=== PATIENT | male | born 1945 | race Caucasian/White ===

== ENCOUNTER 2019-05-16 23:25 | Observation (INO) | payer MEDICARE, OTHER ==
[2019-05-17] MEDS ORDERED: ONDANSETRON 4 MG/2 ML VIAL ONE (00:28)
[2019-05-17 00:41] LABS: Absolute Lymphocytes (CBC) 2.1 K/uL (0.7-4.9); Basophils % 0.8 % (0-1.3); Hematocrit 40.5 % (39.6-49.0); Lymphocytes % 26.4 % (15.3-44.8); MPV 10.7 fL (7.6-11.3); RBC Red Blood Cell Count 4.56 M/uL (4.33-5.43)
[2019-05-17 00:42] LABS: Protime INR 1.11
[2019-05-17 00:55] LABS: ALT/SGPT 27 U/L (12-78); AST/SGOT 34 U/L (15-37); Albumin 3.8 g/dL (3.4-5.0); Alkaline Phosphatase 69 U/L (45-117); BUN Blood Urea Nitrogen 26 mg/dL (7-18); Bicarbonate 23 mmol/L (21-32); Bilirubin Direct 0.2 mg/dL (0-0.2); Bilirubin Total 0.6 mg/dL (0.2-1.0); Glucose Level 97 mg/dL (74-106); Lipase 260 U/L (73-393); NT PRO-BNP 269 pg/mL (<125); Potassium 3.8 mmol/L (3.5-5.1); Protein, Total 7.2 g/dL (6.4-8.2); Sodium Level 139 mmol/L (136-145); Troponin (Emerg Dept Use Only) < 0.02 ng/mL (0.0-0.045)
[2019-05-17] MEDS ORDERED: FAMOTIDINE 20 MG/2 ML VIAL IV ONE (01:06)
[2019-05-17] MEDS ORDERED: NA CHLORIDE 0.9% 1,000 ML ONE (01:06)
--- NOTE | 2019-05-17 01:55 | ER ---
Nurse's Notes [facility] Name: Arun Mccall Age: 73 yrs Sex: Male : 1945 Arrival Date: 05/16/2019 Time: 23:31 Bed 23 Private MD: Diagnosis: Chest pain, unspecified;Type 1 diabetes mellitus;Nausea;Essential (primary) hypertension;Abdominal tenderness Presentation: 05/16 23:41 Presenting complaint: Patient states: Reports pt called EMS complaining of blood sugar ea fluctuation. EMS reports pt BS 109 on seen. Transition of care: patient was not received from another setting of care. Onset of symptoms was May 16, 2019. Risk Assessment: Do you want to hurt yourself or someone else? Patient reports no desire to harm self or others. Initial Sepsis Screen: Does the patient meet any 2 criteria? No. Patient's initial sepsis screen is negative. Does the patient have a suspected source of infection? No. Patient's initial sepsis screen is negative. Care prior to arrival: None. 23:41 Method Of Arrival: EMS: [facility] ea 23:41 Acuity: CHAYITO 4 ea Triage Assessment: 23:51 General: Appears in no apparent distress. Behavior is calm, cooperative, appropriate ea for age. Pain: Denies pain. Neuro: Level of Consciousness is awake, alert, obeys commands, Oriented to person, place, time, situation. Cardiovascular: Patient's skin is warm and dry. Respiratory: Airway is patent Respiratory effort is even, unlabored, Respiratory pattern is regular, symmetrical. Derm: Skin is pink, warm \T\ dry. Historical: - Allergies: 23:46 No Known Allergies; ea - PMHx: 23:47 Hypertension; Diabetes - IDDM; ea - PSHx: 23:46 Cataract left eye; Cataract Right eye; Colon removed; ea - Immunization history:: Adult Immunizations up to date. - Social history:: Smoking status: Patient/guardian denies using tobacco. - Ebola Screening: : No symptoms or risks identified at this time. - Family history:: not pertinent. Screenin:45 Abuse screen: Denies threats or abuse. Nutritional screening: No deficits noted. ea Tuberculosis screening: No symptoms or risk factors identified. Fall Risk None identified. Assessment: 23:51 Reassessment: see triage assessment. ea 05/17 00:00 Reassessment: Patient and/or family updated on plan of care and expected duration. Pain ea level reassessed. Patient is alert, oriented x 3, equal unlabored respirations, skin warm/dry/pink. 01:00 Reassessment: Patient and/or family updated on plan of care and expected duration. Pain ea level reassessed. Patient is alert, oriented x 3, equal unlabored respirations, skin warm/dry/pink. 02:00 Reassessment: Patient and/or family updated on plan of care and expected duration. Pain ea level reassessed. Patient is alert, oriented x 3, equal unlabored respirations, skin warm/dry/pink. Vital Signs: 05/16 23:44 BP 152 / 86; Pulse 58; Resp 18; Temp 98.3; Pulse Ox 98% ; Weight 108.86 kg; Height 5 ea ft. 10 in. (177.80 cm); Pain 0/10; 05/17 00:00 BP 158 / 72; Pulse 57; Resp 18; Pulse Ox 95% on R/A; ea 01:00 BP 130 / 68; Pulse 60; Resp 18; Pulse Ox 96% ; ea 03:52 BP 144 / 63; Pulse 58; Resp 18; Pulse Ox 98% on R/A; ea 05/16 23:44 Body Mass Index 34.44 (108.86 kg, 177.80 cm) ea ED Course: 05/16 23:31 Patient arrived in ED. ak1 23:43 Triage completed. ea 23:45 Arm band placed on right wrist. Patient placed in an exam room, on a stretcher, on ea pulse oximetry. 23:47 Patient has correct armband on for positive identification. Bed in low position. Call ea light in reach. Side rails up X2. 23:55 Sumeet Moody MD is Attending Physician. tom 05/17 00:00 Inserted saline lock: 20 gauge in left antecubital area, using aseptic technique. ea 00:28 Shahnaz Allred RN is Primary Nurse. ea 01:16 Abdomen Acute Series XRAY In Process Unspecified. EDMS 01:54 Kem Boswell is Hospitalizing Provider. tom 03:51 No provider procedures requiring assistance completed. Patient admitted, IV remains in ea place. Administered Medications: 00:30 Drug: Zofran 4 mg Route: IVP; Site: left antecubital; ea 01:38 Follow up: Response: No adverse reaction ea 01:37 Drug: Pepcid 20 mg Route: IVP; Site: left antecubital; ea 03:05 Follow up: Response: No adverse reaction ea 01:38 Drug: NS 0.9% 1000 ml Route: IV; Rate: 125 ml/hr; Site: left antecubital; ea 03:53 Follow up: Response: No adverse reaction; IV Status: Infusion continued upon admission ea 03:12 Drug: Aspirin 162 mg Route: PO; ea 03:51 Follow up: Response: No adverse reaction ea Point of Care Testing: Blood Glucose: 02:11 Blood Glucose: 109 mg/dL; ea Ranges: Outcome: 01:55 Decision to Hospitalize by Provider. tom 02:00 Instructed on the need for admit, Demonstrated understanding of instructions. ea 03:51 Admitted to ER Hold. Please see [facility] for further documentation. ea 03:51 Condition: stable 07:45 Patient left the ED. em Signatures: Dispatcher [employer] Sumeet Gregg MD MD cha Munoz, Edgar, ORTHODONTIC TECHNICIAN ASSISTANT ORTHODONTIC TECHNICIAN ASSISTANT em Margarita Serrato RN RN ak1 Shahnaz Allred RN RN ea
--- NOTE | 2019-05-17 01:56 | EDPHYS ---
Physician Documentation [facility] Name: Arun Mccall Age: 73 yrs Sex: Male : 1945 Arrival Date: 05/16/2019 Time: 23:31 Bed 23 Private MD: ED Physician Sumeet Moody HPI: 05/17 00:39 This 73 yrs old Male presents to ER via EMS with complaints of abdominal tom pain, vomiting . 00:39 The patient or guardian reports chest pain that is located primarily in the anterior tom chest wall, left. Onset: just prior to arrival, yesterday. The patient presents with abdominal pain in the epigastric area, in the upper abdomen. Onset: The symptoms/episode began/occurred today, yesterday. The patient presents to the emergency department with nausea, diarrhea, abdominal pain, of the right upper quadrant and left upper quadrant. Historical: - Allergies: 05/16 23:46 No Known Allergies; ea - PMHx: 23:47 Hypertension; Diabetes - IDDM; ea - PSHx: 23:46 Cataract left eye; Cataract Right eye; Colon removed; ea - Immunization history:: Adult Immunizations up to date. - Social history:: Smoking status: Patient/guardian denies using tobacco. - Ebola Screening: : No symptoms or risks identified at this time. - Family history:: not pertinent. ROS: 05/17 00:39 Constitutional: Negative for fever, chills, and weight loss, Eyes: Negative for injury, tom pain, redness, and discharge, ENT: Negative for injury, pain, and discharge, Neck: Negative for injury, pain, and swelling, Respiratory: Negative for shortness of breath, cough, wheezing, and pleuritic chest pain, Back: Negative for injury and pain, : Negative for injury, bleeding, discharge, and swelling, MS/Extremity: Negative for injury and deformity, Skin: Negative for injury, rash, and discoloration, Neuro: Negative for headache, weakness, numbness, tingling, and seizure. Cardiovascular: Positive for chest pain. Abdomen/GI: Positive for abdominal pain, nausea and vomiting, diarrhea. Exam: 00:39 Constitutional: This is a well developed, well nourished patient who is awake, alert, tom and in no acute distress. Head/Face: Normocephalic, atraumatic. Eyes: Pupils equal round and reactive to light, extra-ocular motions intact. Lids and lashes normal. Conjunctiva and sclera are non-icteric and not injected. Cornea within normal limits. Periorbital areas with no swelling, redness, or edema. ENT: Nares patent. No nasal discharge, no septal abnormalities noted. Tympanic membranes are normal and external auditory canals are clear. Oropharynx with no redness, swelling, or masses, exudates, or evidence of obstruction, uvula midline. Mucous membranes moist. Chest/axilla: Normal chest wall appearance and motion. Nontender with no deformity. No lesions are appreciated. Cardiovascular: Regular rate and rhythm with a normal S1 and S2. No gallops, murmurs, or rubs. Normal PMI, no JVD. No pulse deficits. Respiratory: Lungs have equal breath sounds bilaterally, clear to auscultation and percussion. No rales, rhonchi or wheezes noted. No increased work of breathing, no retractions or nasal flaring. Abdomen/GI: Soft, non-tender, with normal bowel sounds. No distension or tympany. No guarding or rebound. No evidence of tenderness throughout. Back: No spinal tenderness. No costovertebral tenderness. Full range of motion. Male : Normal genitalia with no discharge or lesions. Skin: Warm, dry with normal turgor. Normal color with no rashes, no lesions, and no evidence of cellulitis. 00:39 Musculoskeletal/extremity: DVT Exam: No signs of deep vein thrombosis. no pain, no tenderness, negative Homans' sign noted on exam, no appreciated bluish discoloration, no erythema, no increased warmth, swelling, that is moderate. Vital Signs: 05/16 23:44 BP 152 / 86; Pulse 58; Resp 18; Temp 98.3; Pulse Ox 98% ; Weight 108.86 kg; Height 5 ea ft. 10 in. (177.80 cm); Pain 0/10; 05/17 00:00 BP 158 / 72; Pulse 57; Resp 18; Pulse Ox 95% on R/A; ea 01:00 BP 130 / 68; Pulse 60; Resp 18; Pulse Ox 96% ; ea 03:52 BP 144 / 63; Pulse 58; Resp 18; Pulse Ox 98% on R/A; ea 05/16 23:44 Body Mass Index 34.44 (108.86 kg, 177.80 cm) ea MDM: 05/16 23:55 Patient medically screened. [facility] 05/17 00:42 Data reviewed: vital signs, nurses notes, lab test result(s), EKG, radiologic studies, tom plain films. 05/16 23:31 Order name: Glucometer Result Chapisa; Complete Time: 01:14 ak1 05/16 23:56 Order name: Basic Metabolic Panel; Complete Time: 01:14 [facility] 05/16 23:56 Order name: CBC with Diff; Complete Time: 01:14 [facility] 05/16 23:56 Order name: LFT's; Complete Time: 01:14 [facility] 05/16 23:56 Order name: Magnesium; Complete Time: 01:14 [facility] 05/16 23:56 Order name: NT PRO-BNP; Complete Time: 01:14 [facility] 05/16 23:56 Order name: PT-INR; Complete Time: 01:14 [facility] 05/16 23:56 Order name: Troponin (emerg Dept Use Only); Complete Time: 01:14 [facility] 05/17 00:38 Order name: Urine Culture [facility] 05/17 00:48 Order name: Lipase; Complete Time: 01:14 [facility] 05/17 02:49 Order name: Urine Dipstick--Ancillary (enter results) em 05/17 05:44 Order name: Troponin I [facility] 05/17 05:44 Order name: Lipid Profile [facility] 05/16 23:56 Order name: EKG; Complete Time: 23:57 [facility] 05/16 23:56 Order name: Cardiac monitoring; Complete Time: 02:13 [facility] 05/16 23:56 Order name: EKG - Nurse/Tech; Complete Time: 02:13 [facility] 05/16 23:56 Order name: IV Saline Lock; Complete Time: 02:13 [facility] 05/16 23:56 Order name: Labs collected and sent; Complete Time: 02:13 [facility] 05/16 23:56 Order name: O2 Per Protocol; Complete Time: 02:13 [facility] 05/16 23:56 Order name: O2 Sat Monitoring; Complete Time: 02:13 [facility] 05/17 00:38 Order name: Urine Dipstick-Ancillary (obtain specimen); Complete Time: 02:47 [facility] 05/17 00:39 Order name: Abdomen Acute Series XRAY [facility] Administered Medications: 00:30 Drug: Zofran 4 mg Route: IVP; Site: left antecubital; ea 01:38 Follow up: Response: No adverse reaction ea 01:37 Drug: Pepcid 20 mg Route: IVP; Site: left antecubital; ea 03:05 Follow up: Response: No adverse reaction ea 01:38 Drug: NS 0.9% 1000 ml Route: IV; Rate: 125 ml/hr; Site: left antecubital; ea 03:53 Follow up: Response: No adverse reaction; IV Status: Infusion continued upon admission ea 03:12 Drug: Aspirin 162 mg Route: PO; ea 03:51 Follow up: Response: No adverse reaction ea Point of Care Testing: Blood Glucose: 02:11 Blood Glucose: 109 mg/dL; ea Ranges: Critical Glucose Levels:Adult <50 mg/dl or >400 mg/dl <40 mg/dl or >180 mg/dl Disposition: 05/17/19 01:55 Hospitalization ordered by Kem Boswell for Observation. Preliminary diagnosis are Chest pain, unspecified, Type 1 diabetes mellitus, Nausea, Essential (primary) hypertension, Abdominal tenderness. - Bed requested for Telemetry/MedSurg (observation). - Status is Observation. em - Condition is Fair. - Problem is new. - Symptoms have improved. UTI on Admission? No Signatures: Dispatcher [employer] EDSC Sumeet Moody MD MD cha Munoz, Edgar, MAINTENANCE PERSON MAINTENANCE PERSON Bobbi Kat, RN RN Shahnaz Goldberg RN RN ea Corrections: (The following items were deleted from the chart) 00:48 00:39 LIPASE+C.LAB.BRZ ordered. [facility] EDSC 00:52 05/16 23:56 Chest Single View+RAD.RAD.BRZ ordered. [facility]SC 05/17 05:46 01:55 Hospitalization Ordered by Kem Boswell for Observation. Preliminary diagnosis cg is Chest pain, unspecified; Type 1 diabetes mellitus; Nausea; Essential (primary) hypertension; Abdominal tenderness. Bed requested for Telemetry/MedSurg (observation). Status is Observation. Condition is Fair. Problem is new. Symptoms have improved. UTI on Admission? No. tom 07:45 05:46 05/17/2019 01:55 Hospitalization Ordered by Kem Boswell for Observation. em Preliminary diagnosis is Chest pain, unspecified; Type 1 diabetes mellitus; Nausea; Essential (primary) hypertension; Abdominal tenderness. Bed requested for Telemetry/MedSurg (observation). Status is Observation. Condition is Fair. Problem is new. Symptoms have improved. UTI on Admission? No. cg
--- NOTE | 2019-05-17 02:43 | P.HP ---
Certification for Inpatient Patient admitted to: Observation With expected LOS: <2 Midnights Patient will require the following post-hospital care: None Practitioner: I am a practitioner with admitting privileges, knowledge of patient current condition, hospital course, and medical plan of care. Services: Services provided to patient in accordance with Admission requirements found in Title 42 Section 412.3 of the Code of Federal Regulations Patient History Date of Service: 05/17/19 Reason for admission: Chest pain, abdominal pain and diarrhea History of Present Illness: 73-year-old man with a history of diabetes mellitus type 2, history of hypertension, prior heavy smoker presented to the emergency department with a chief complaint of abdominal pain and diarrhea. Patient also report chest pain of onset a few hours ago. Chest pain is located in the anterior chest, rated at 3/10 in severe, nonradiating, no aggravating or relieving factors. He reports an episode of severe chest pain about 4 weeks ago. At that time he felt like he had a heart attack. Patient relates his abdominal symptoms to Tresiba. His Levemir insulin was switched to Tresiba about 4 weeks ago. He stated started experiencing abdominal symptoms comprising of epigastric pain, abdominal pain and diarrhea 2 weeks after starting the Tresiba. In the ED, initial troponin is negative. EKG is unremarkable with no ischemic changes. Abdominal x-ray is unremarkable showing non-specific gas bowel pattern. Lipase is within normal range. Patient is placed under observation for ACS rule out. Allergies fenofibrate nanocrystallized [From Tricor] Allergy (Unverified 05/17/19 06:56) Unknown Home Medications: Metoprolol Tartrate [Lopressor*] 25 mg PO BID 01/07/15 Multivitamin [Multivitamins] 1 each PO DAILY 01/07/15 Aspirin [Lo-Dose Aspirin EC] 81 mg PO DAILY 05/17/19 Insulin Degludec [Tresiba] 14 units SQ BEDTIME 05/17/19 Insulin Degludec [Tresiba] 26 units SQ DAILY 05/17/19 - Past Medical/Surgical History -: Diabetes mellitus type 2 -: Hypertension -: Chronic kidney disease stage 3 - Family History Father -: Heart disease - Social History Smoking Status: Current every day smoker Alcohol use: No CD- Drugs: No Review of Systems Other: General: No fever, no malaise, no unintentional weight loss. Eyes: No eye discharge, Respiratory: No cough, no shortness of breath. CVS: No palpitation, no lightheadedness. GI: No nausea, no vomit, no constipation, has diarrhea. Genitourinary: No dysuria, no urinary frequency, no incontinence, no hematuria. Musculoskeletal: No joint pains, or joint swelling, no gait instability. Neurology: No headache, no asymmetric, weakness, no problem with swallowing. Except as documented, all other systems reviewed and negative. Physical Examination - Physical Exam General: Alert, In no apparent distress, Oriented x3 HEENT: Normocephalic, PERRLA, Mucous membr. moist/pink Neck: Supple, JVD not distended, No Thyromegaly Respiratory: Clear to auscultation bilaterally, Normal air movement Cardiovascular: No edema, Normal pulses, Regular rate/rhythm, No murmurs Capillary refill: <2 Seconds Gastrointestinal: Normal bowel sounds, Soft and benign, Non-distended, No tenderness Musculoskeletal: No swelling Integumentary: No rashes, No erythema Neurological: Normal strength at 5/5 x4 extr, Cranial nerves 3-12 intact - Studies Laboratory Data (last 24 hrs) 05/17/19 00:38: Lipase Cancelled 05/17/19 00:25: PT 13.1 H, INR 1.11 05/17/19 00:25: WBC 7.8, Hgb 14.1, Hct 40.5, Plt Count 155 05/17/19 00:25: Sodium 139, Potassium 3.8, BUN 26 H, Creatinine 1.51 H, Glucose 97, Magnesium 2.0, Total Bilirubin 0.6, AST 34, ALT 27, Alkaline Phosphatase 69 , Lipase 260 Assessment and Plan - Problems (Diagnosis) (1) Chest pain Current Visit: Yes Status: Acute (2) Abdominal pain Current Visit: Yes Status: Acute (3) Hypertension Current Visit: Yes Status: Acute (4) Tobacco use Current Visit: Yes Status: Acute (5) Hyperlipidemia Current Visit: Yes Status: Acute (6) Diabetes mellitus type 2 in obese Current Visit: Yes Status: Acute - Plan Placed under observation Trend troponin Metoprolol 50 mg b.i.d. Check lipid profile. Obtain Echocardiogram Trial of oral Protonix Insulin sliding scale and Lantus insulin for glucose management. Abdominal pain and diarrhea could well be Tresiba side effects. Check stool for C. diff given intermittent diarrhea. - Advance Directives Does patient have a Living Will: No Does patient have a Durable POA for Healthcare: No
[2019-05-17] MEDS ORDERED: ASPIRIN 81 MG CHEWABLE TABLET ONE (03:08)
[2019-05-17 03:19] LABS: Urine Blood TRACE (NEG); Urine Glucose NEGATIVE (NEG); Urine Protein 1+ (NEG); Urine Specific Gravity <1.005 (1.005-1.030); Urine pH 5.5 (5.0-7.0)
[2019-05-17] MEDS ORDERED: NITROGLYCERIN 0.4 MG/TAB SL PRN (04:12)
[2019-05-17 04:13] VITALS: BMI 34.4
[2019-05-17 05:44] LABS: HDL Cholesterol 42 mg/dL (40-60); LDL Cholesterol, Calculated 115 (<130); Troponin I < 0.02 ng/mL (0.0-0.045)
[2019-05-17] MEDS: PANTOPRAZOLE 40MG TABLET PO SCH (06:30)
[2019-05-17] MEDS ORDERED: PANTOPRAZOLE 40MG TABLET PO ONE (06:55)
--- NOTE | 2019-05-17 07:16 | EKG ---
Test Date: 2019-05-17 Test Time: 01:45:12 Bowstring Maker: ANN-MARIE MEASUREMENT RESULTS: Intervals: Rate: 60 GA: 172 QRSD: 126 QT: 468 QTc: 468 Vernalis: P: 7 GA: 172 QRS: 16 T: 28 INTERPRETIVE STATEMENTS: Normal sinus rhythm Right bundle branch block Abnormal ECG Compared to ECG 03/28/2015 00:06:29 Myocardial infarct finding no longer present Electronically Signed On 05-17-19 07:16:04 CDT by Joseph Fuentes
[2019-05-17] MEDS: INSULIN -REGULAR HUMAN 50 UNIT/0.5 ML ML SQ SCH ×4 (07:30→21:00)
[2019-05-17] MEDS: ENOXAPARIN 30 MG/0.3 ML SQ SCH (08:35)
[2019-05-17] MEDS: METOPROLOL TAR 50 MG TAB PO SCH ×2 (08:36→21:29)
[2019-05-17] MEDS ORDERED: INFLUENZA VACCINE (for 3y+) 0.5 ML DOSE IMVAC ONE (09:00)
[2019-05-17] MEDS ORDERED: PNEUMOCOCCAL VACCINE 0.5 ML IMVAC ONE (09:00)
--- NOTE | 2019-05-17 09:01 | RAD REPORT ---
EXAM DESCRIPTION: RAD - Abdomen Acute Series - 05/17/2019 1:30 am CLINICAL HISTORY: Abd pain;Pain COMPARISON: No comparisons FINDINGS: Lung volumes are low. Left hemidiaphragm elevation is present. Left base atelectasis is se en. No peripheral mass or consolidation identified. Significant failure or volume overload are doubtf ul. Heart size and vasculature are normal for shallow inspiration. No pneumothorax. Small left pleura l effusion cannot be excluded. Go air-filled but nondilated stomach noted. Air is seen within multiple nondilated small bowel loops. No colon dilatation. Numerous surgical clips overlie the abdomen. No bowel obstruction, free air or other acute findings. No suspicious calcifications. Bony degenerative changes are present. IMPRESSION: Limited portable chest imaging without acute cardiopulmonary finding. Multiple air filled nondilated small bowel loops could reflect ileus or enteritis. No bowel obstruction, free air or surgically emergent finding suspected.
[2019-05-17] MEDS ORDERED: HYDRALAZINE HCL 20 MG/ML VIAL IV PRN (11:24)
[2019-05-17] MEDS ORDERED: ACETAMINOPHEN 500 MG TAB PO PRN (18:14)
[2019-05-17 20:09] VITALS: O2SAT 97
[2019-05-18 04:29] LABS: Absolute Lymphocytes (CBC) 1.3 K/uL (0.7-4.9); Basophils % 0.6 % (0-1.3); Lymphocytes % 23.2 % (15.3-44.8); MPV 10.7 fL (7.6-11.3)
[2019-05-18] MEDS: PANTOPRAZOLE 40MG TABLET PO SCH (06:41)
[2019-05-18] MEDS: INSULIN -REGULAR HUMAN 50 UNIT/0.5 ML ML SQ SCH ×2 (07:30→11:30)
[2019-05-18] MEDS: ENOXAPARIN 30 MG/0.3 ML SQ SCH (09:00)
[2019-05-18] MEDS: METOPROLOL TAR 50 MG TAB PO SCH (10:39)
[2019-05-18 12:48] VITALS: BP 150/67; TEMP 97.1
--- NOTE | 2019-05-19 03:11 | DS ---
Date of Discharge: 05/18/2019 Discharge Diagnoses: 1.Chest pain, rule out myocardial infarction. 2.Abdominal pain, resolved. 3.Diarrhea, resolved. 4.Hypertension. 5.Overweight. 6.Diabetes mellitus. 7.Tobacco abuse. Consult: None. Procedure: Acute abdomen series, which was normal except for multiple air-filled nondilated small laury wel loops, could reflect ileus or enteritis. History Of Present Illness: Please refer to Dr. Boswell's note. Hospital Course: Initially, the patient presented to the hospital with abdominal pain, diarrhea, as well as chest pain, which was not very severe. Acute abdomen series done was inconclusive. Patient was admitted to the floor, pain resolved, C difficile, but patient did not have any bowel movement since admission, so it was not able to proceed. Patient was able to tolerate diet very well . His chest pain as well has resolved. Cardiac enzymes were all negative. He will be discharged to day in stable condition. We advised patient he will need stress test before proceeding with any exer tion related activity. We will order stress test for tomorrow. Patient has appointment with Dr. Sheehan at the end of the month. Advised him to keep that appointment. In terms of his insulin, patien t thought his diarrhea started when he started on insulin, so I advised him to discuss brown t with the primary care physician. We checked patient's lipid panel and his LDL was at 115 with low HDL at 42. I advised him to discuss that with primary care physician as well. He will be discharged today in stable condition. Continue his home medication. Patient may need to consider medication f or his lipid panel and he will discuss that with his primary care physician. Patient was given order for stress test. He will follow up tomorrow at our facility to schedule that. Discharge Condition: Stable. Discharge Diet: Cardiac/diabetic, 1800 ADA. Discharge Activity: Avoid exertion. Physical Examination: Discharge Vital Signs: Blood pressure is 151/69, respiratory rate 18, pulse 60, temperature 98.9. O 2 saturation 97%. General: Patient is alert and oriented x3, does not look in any distress. HEENT: Atraumatic, normocephalic. PERRLA. Oral mucosa is moist. Neck: Supple. No JVD. No carotid bruits. Chest: Clear to auscultation. Good air entry. Heart: Regular rate and rhythm. S1, S2 normal. No gallop or murmur. Abdomen: Soft, nontender. No masses. No hepatosplenomegaly. Positive bowel sounds. Extremities: No clubbing, no cyanosis, no edema. No calf tenderness. Discharge Medications: Aspirin 81 mg once a day; insulin units at bedtime, increase 6 uni ts daily; metoprolol 25 mg twice a day; multivitamin 1 tablet orally once a day. EUNICE/LOLLY Voice ID: [id number] Report ID: [id number]
== END 2019-05-18 12:45 | disposition home or self-care (01) ==
LOC: ER 23:25 → ERHOLD 05-17 03:09 → 4TH 05-17 07:36
PROVIDERS: ADMIT Internal Medicine; ATTEND Internal Medicine
DX: R07.9 Chest pain, unspecified (principal); R10.9 Unspecified abdominal pain; R19.7 Diarrhea, unspecified; I10 Essential (primary) hypertension; E66.3 Overweight; Z68.34 Body mass index [BMI] 34.0-34.9, adult; E11.9 Type 2 diabetes mellitus without complications; F17.200 Nicotine dependence, unspecified, uncomplicated
CPT/HCPCS: 96361; 93005; 87088; 85025 ×2; 80048 ×2; 36415 ×2; 83735; 85610; 80061; 82962 ×9; 80076; 81003; 84484 ×4; 83690; 83880; 74022; 94760 ×3; 96375; 96374; 99285; J0360; J1650 ×2; J7030; J2405; G0378 ×3; 87086

== ENCOUNTER 2019-06-09 13:36 | Emergency (ER) | payer OTHER ==
[2019-06-09 14:23] LABS: Absolute Lymphocytes (CBC) 1.2 K/uL (0.7-4.9); Basophils % 0.4 % (0-1.3); Hematocrit 38.7 % (39.6-49.0); Lymphocytes % 19.8 % (15.3-44.8); MPV 10.7 fL (7.6-11.3)
[2019-06-09 14:28] LABS: Potassium 3.8 mmol/L (3.5-5.1)
--- NOTE | 2019-06-09 14:58 | ER ---
Nurse's Notes [facility] Name: Arun Mccall Age: 73 yrs Sex: Male : 1945 Arrival Date: 06/09/2019 Time: 13:38 Bed 19 Private MD: Diagnosis: Person with feared health complaint in whom no diagnosis is made Presentation: 06/09 13:38 Presenting complaint: EMS states: PT STATES BGL ABNORMAL AT 166. Transition of care: bp patient was not received from another setting of care. Onset of symptoms is unknown. Risk Assessment: Do you want to hurt yourself or someone else? Patient reports no desire to harm self or others. Initial Sepsis Screen: Does the patient meet any 2 criteria? No. Patient's initial sepsis screen is negative. Does the patient have a suspected source of infection? No. Patient's initial sepsis screen is negative. Care prior to arrival: Glucose check: 166. 13:38 Method Of Arrival: EMS: [facility] bp 13:38 Acuity: CHAYITO 4 bp Triage Assessment: 13:39 General: Appears in no apparent distress. comfortable, Behavior is cooperative, bp appropriate for age, anxious. Pain: Denies pain. EENT: No deficits noted. Neuro: No deficits noted. Cardiovascular: No deficits noted. Respiratory: No deficits noted. GI: No signs and/or symptoms were reported involving the gastrointestinal system. : No signs and/or symptoms were reported regarding the genitourinary system. Derm: No deficits noted. Musculoskeletal: No deficits noted. Historical: - Allergies: 13:39 No Known Allergies; bp - PMHx: 13:39 Diabetes - IDDM; Hypertension; bp - Immunization history:: Adult Immunizations up to date. - Social history:: Smoking status: Patient/guardian denies using tobacco. - Ebola Screening: : No symptoms or risks identified at this time. Screenin:41 Abuse screen: Denies threats or abuse. Denies injuries from another. Nutritional bp screening: No deficits noted. Tuberculosis screening: No symptoms or risk factors identified. Fall Risk None identified. Assessment: 13:41 General: SEE TRIAGE NOTE. bp 15:00 Reassessment: PT EXPRESSING CONCERN OVER DISCHARGE DUE TO "LOW SUGAR" DESPITE BGL bp WITHIN NORMAL RANGE. PT REFUSING EDUCATION OVER GLYCEMIC NORMALS. 15:22 Reassessment: pt requesting a taxi voucher, states he normally drives himself around iw but he has been feeling so bad lately that he can't drive himself, pt states he does not have any family or friends to pick him up, can;t ride the bis because he can't walk across the street, pt is ambulatory with steady gait, pt advised that we are only allowed to give out bus passes, pt requesting to speak to Product Development Specialist. Lorie Saez notified. 15:35 Reassessment: Lorie speaking with pt,. pt ambulatory out of dept with steady gait, with iw Lorie RN. 15:38 Reassessment: PT D/C HOME AMBULATORY WITH STEADY GAIT, AOx4, NO ATAXIA NOTED, FINAL BGL bp 94, PT GIVEN SANDWICH FOR TRIP HOME. Vital Signs: 13:39 BP 156 / 72; Pulse 68; Resp 16; Temp 98; Pulse Ox 99% ; Weight 99.79 kg; bp 13:47 BP 158 / 74; Pulse 64; Resp 16; Pulse Ox 97% ; bp ED Course: 13:38 Patient arrived in ED. bp 13:39 Triage completed. bp 13:39 Arm band placed on. bp 13:41 Patient has correct armband on for positive identification. Bed in low position. Call bp light in reach. Side rails up X2. 13:44 Josi Avilez FNP-C is [facility]. kb 13:44 Gilberto Burden MD is Attending Physician. kb 13:47 Adalberto Welsh, RN is Primary Nurse. bp 13:58 Inserted saline lock: 22 gauge in right forearm, using aseptic technique. Blood bp collected. 15:40 No provider procedures requiring assistance completed. IV discontinued, intact, bp bleeding controlled, No redness/swelling at site. Pressure dressing applied. Administered Medications: No medications were administered Outcome: 14:58 Discharge ordered by . kb 15:35 Patient left the ED. iw 15:40 Discharged to home ambulatory. bp 15:40 Condition: stable 15:40 Discharge instructions given to patient, Instructed on discharge instructions, follow up and referral plans. Demonstrated understanding of instructions, follow-up care. Signatures: Josi Avilez FNP-C FNP-Patrizia Wiley RN RN iw Adalberto Welsh, ASTRID RN bp
--- NOTE | 2019-06-09 14:58 | EDPHYS ---
Physician Documentation [facility] Name: Arun Mccall Age: 73 yrs Sex: Male : 1945 Arrival Date: 06/09/2019 Time: 13:38 Bed 19 Private MD: ED Physician Gilberto Burden HPI: 06/09 13:50 This 73 yrs old Male presents to ER via EMS with complaints of High Blood kb Sugar. 13:50 The patient or guardian reports hyperglycemia, hypoglycemia, that was potentially kb precipitated by changing meds, with the patient's symptoms witnessed by no one. Onset: The symptoms/episode began/occurred today. Associated signs and symptoms: Pertinent positives: None. Current symptoms: In the emergency department the patient's symptoms are unchanged from the initial presentation. The patient has experienced similar episodes in the past. The patient has been recently seen by a physician:. Pt reports he was on levemir for years, then it started getting more expensive so he had to switch to something else. Started one new medication, but it was dropping his sugar so they switched him to a new one, the basaglar pen. States it has been dropping his sugar worse than the previous medication. Reports his sugar dropped today, into the 90s, and it scared him. Reports he drank some juice and ate some peanut butter to get it up and now it is too high (166 per EMS). Denies any other symptoms, states "it just scared me. I don't know what to do with it.". Historical: - Allergies: 13:39 No Known Allergies; bp - PMHx: 13:39 Diabetes - IDDM; Hypertension; bp - Immunization history:: Adult Immunizations up to date. - Social history:: Smoking status: Patient/guardian denies using tobacco. - Ebola Screening: : No symptoms or risks identified at this time. ROS: 13:49 Constitutional: Negative for fever, chills, and weight loss, ENT: Negative for injury, kb pain, and discharge, Neck: Negative for injury, pain, and swelling, Cardiovascular: Negative for chest pain, palpitations, and edema, Respiratory: Negative for shortness of breath, cough, wheezing, and pleuritic chest pain, Abdomen/GI: Negative for abdominal pain, nausea, vomiting, diarrhea, and constipation, Back: Negative for injury and pain, MS/Extremity: Negative for injury and deformity, Skin: Negative for injury, rash, and discoloration, Neuro: Negative for headache, weakness, numbness, tingling, and seizure. Exam: 13:49 Constitutional: This is a well developed, well nourished patient who is awake, alert, kb and in no acute distress. Head/Face: Normocephalic, atraumatic. ENT: Nares patent. No nasal discharge, no septal abnormalities noted. Tympanic membranes are normal and external auditory canals are clear. Oropharynx with no redness, swelling, or masses, exudates, or evidence of obstruction, uvula midline. Mucous membranes moist. Neck: Trachea midline, no thyromegaly or masses palpated, and no cervical lymphadenopathy. Supple, full range of motion without nuchal rigidity, or vertebral point tenderness. No Meningismus. Chest/axilla: Normal chest wall appearance and motion. Nontender with no deformity. No lesions are appreciated. Cardiovascular: Regular rate and rhythm with a normal S1 and S2. No gallops, murmurs, or rubs. Normal PMI, no JVD. No pulse deficits. Respiratory: Lungs have equal breath sounds bilaterally, clear to auscultation and percussion. No rales, rhonchi or wheezes noted. No increased work of breathing, no retractions or nasal flaring. Abdomen/GI: Soft, non-tender, with normal bowel sounds. No distension or tympany. No guarding or rebound. No evidence of tenderness throughout. Skin: Warm, dry with normal turgor. Normal color with no rashes, no lesions, and no evidence of cellulitis. MS/ Extremity: Pulses equal, no cyanosis. Neurovascular intact. Full, normal range of motion. Neuro: Awake and alert, GCS 15, oriented to person, place, time, and situation. Cranial nerves II-XII grossly intact. Motor strength 5/5 in all extremities. Sensory grossly intact. Cerebellar exam normal. Normal gait. 13:49 Psych: Behavior/mood is cooperative, anxious, Affect is animated, Oriented to person, place, time, Patient has no thoughts/intents to harm self or others. Judgement / Insight is normal. Memory is normal. Delusions/hallucinations are not present. Vital Signs: 13:39 BP 156 / 72; Pulse 68; Resp 16; Temp 98; Pulse Ox 99% ; Weight 99.79 kg; bp 13:47 BP 158 / 74; Pulse 64; Resp 16; Pulse Ox 97% ; bp MDM: 13:44 Patient medically screened. kb 13:50 Data reviewed: vital signs, nurses notes. Data interpreted: Pulse oximetry: on room air kb is 97 %. Interpretation: normal. 14:31 Counseling: I had a detailed discussion with the patient and/or guardian regarding: the historical points, exam findings, and any diagnostic results supporting the discharge/admit diagnosis, lab results, the need for outpatient follow up, a family practitioner, to return to the emergency department if symptoms worsen or persist or if there are any questions or concerns that arise at home. 16:48 Data reviewed: I have discussed the patient's presentation/case with the attending Emergency Department Physician;. 06/09 13:44 Order name: CBC with Diff; Complete Time: 14:30 kb 06/09 13:44 Order name: Basic Metabolic Panel; Complete Time: 14:30 kb 06/09 13:44 Order name: IV Start; Complete Time: 13:58 kb 06/09 15:27 Order name: Glucose, Ancillary Testing; Complete Time: 15:28 EDMS 06/09 15:29 Order name: Diet Ada 1800 Omar; Complete Time: 15:30 kb Administered Medications: No medications were administered Disposition: 15:58 Co-signature as Attending Physician, Gilberto Burden MD. rn Disposition: 06/09/19 14:58 Discharged to Home. Impression: Person with feared health complaint in whom no diagnosis is made. - Condition is Stable. - Discharge Instructions: Hyperglycemia, [id number], Hypoglycemia, [id number]. - Medication Reconciliation Form, Thank You Letter, Antibiotic Education, Prescription Opioid Use form. - Follow up: Emergency Department; When: As needed; Reason: Worsening of condition. Follow up: Private Physician; When: 2 - 3 days; Reason: Recheck today's complaints, Continuance of care, Re-evaluation by your physician. Signatures: Dispatcher [employer] EDJosi Lantigua, MANAGER BRANCH-C MANAGER BRANCH-Patrizia Wiley, RN Gilberto Mora MD MD rn Peltier, Brian, RN RN bp Corrections: (The following items were deleted from the chart) 15:35 14:58 06/09/2019 14:58 Discharged to Home. Impression: Person with feared health iw complaint in whom no diagnosis is made. Condition is Stable. Forms are Medication Reconciliation Form, Thank You Letter, Antibiotic Education, Prescription Opioid Use. Follow up: Emergency Department; When: As needed; Reason: Worsening of condition. Follow up: Private Physician; When: 2 - 3 days; Reason: Recheck today's complaints, Continuance of care, Re-evaluation by your physician. kb
[2019-06-09 16:04] VITALS: BP 158/74; O2SAT 97
[2019-06-09 16:05] VITALS: TEMP 98
== END 2019-06-09 15:35 | disposition home or self-care (01) ==
LOC: ER 13:36
DX: R73.9 Hyperglycemia, unspecified (principal); Z71.1 Person with feared health complaint in whom no diagnosis is made
CPT/HCPCS: 36415; 80048; 82947; 85025; 99283

== ENCOUNTER 2019-06-19 07:59 | Emergency (ER) | payer OTHER ==
[2019-06-19] MEDS ORDERED: NA CHLORIDE 0.9% 500 ML ONE (08:37)
--- NOTE | 2019-06-19 09:12 | RAD REPORT ---
EXAM DESCRIPTION: CT - Head Brain Wo Cont - 06/19/2019 9:01 am CLINICAL HISTORY: Fall, head injury COMPARISON: CT head February 2015 TECHNIQUE: Axial 5 mm thick images of the head were obtained without IV contrast. All CT scans are performed using dose optimization technique as appropriate and may include automated exposure control or mA/KV adjustment according to patient size. FINDINGS: No intracranial hemorrhage, mass, edema or shift of mid-line structures. No acute infarcti on changes seen. Prominent atrophy changes are present. Ventricles are in proportion to the volume lo ss. Scattered chronic ischemic changes are evident in the cerebral white matter and questionably in t he vish. Chronic ischemic changes similar to comparison. Atrophy is progressive. . Mastoid air cells and visualized portions of the paranasal sinuses are clear. No acute bony findings. IMPRESSION: Negative non-contrast CT head examination for acute finding. Atrophy and chronic ischemic changes are present with the atrophy progressive from the 2014 compariso n.
[2019-06-19 09:13] LABS: Albumin 3.2 g/dL (3.4-5.0); Bilirubin Direct 0.2 mg/dL (0-0.2); Bilirubin Total 0.6 mg/dL (0.2-1.0); Potassium 3.7 mmol/L (3.5-5.1); Protein, Total 6.5 g/dL (6.4-8.2)
[2019-06-19 09:17] LABS: Absolute Lymphocytes (CBC) 1.1 K/uL (0.7-4.9); Basophils % 0.5 % (0-1.3); Hematocrit 40.7 % (39.6-49.0); Lymphocytes % 21.5 % (15.3-44.8); MPV 10.2 fL (7.6-11.3); RBC Red Blood Cell Count 4.54 M/uL (4.33-5.43)
--- NOTE | 2019-06-19 10:26 | RAD REPORT ---
EXAM DESCRIPTION: RAD - Abdomen 1 View (KUB) - 06/19/2019 9:00 am CLINICAL HISTORY: constipation, abd pain History of fall COMPARISON: No comparisons FINDINGS: Bowel gas pattern is non-specific. No obstruction, free air or pneumatosis. No suspicious calcifications. Numerous surgical clips overlie the abdomen probably from prior hernia repair Prominent bony degenerative change in the mid and lower lumbar spine. No pelvic fracture. Proximal fe li show no acute findings. IMPRESSION: Single-view abdomen examination shows no acute or suspicious finding.
--- NOTE | 2019-06-19 10:48 | EDPHYS ---
Physician Documentation [facility] Name: rAun Mccall Age: 73 yrs Sex: Male : 1945 Arrival Date: 06/19/2019 Time: 08:04 Bed 18 Private MD: ED Physician Gilberto Burden HPI: 06/19 08:15 This 73 yrs old Male presents to ER via Unassigned with complaints of rn Abdominal Pain, Fall Injury. 08:15 Details of fall: The patient fell from an upright position, while standing. Onset: The rn symptoms/episode began/occurred just prior to arrival. Associated injuries: The patient sustained injury to the head. Severity of symptoms: At their worst the symptoms were mild, in the emergency department the symptoms are unchanged. The patient has experienced similar episodes in the past. Reports leaned over to tow picker something off floor, fell forward and hit head, no LOC, denies injury other than head, states hit top of head. Also reports has been constipated, difficulty going to bathroom, did have a small bowel movement this AM but was hard. Reports has not been taking his insulin because glucose going too low, and feels dehydrated. . Historical: - Allergies: 08:05 No Known Allergies; aa5 - PMHx: 08:05 Diabetes - IDDM; Hypertension; aa5 - PSHx: 08:05 Colon sx; aa5 - Immunization history:: Flu vaccine is not up to date. - Social history:: Smoking status: Patient uses tobacco products, denies chronic smoking, but will smoke occasionally. - Ebola Screening: : No symptoms or risks identified at this time. - Family history:: not pertinent. - Hospitalizations: : No recent hospitalization is reported. ROS: 08:15 Constitutional: Negative for fever, chills, and weight loss, Eyes: Negative for injury, rn pain, redness, and discharge, ENT: Negative for injury, pain, and discharge, Neck: Negative for injury, pain, and swelling, Cardiovascular: Negative for chest pain, palpitations, and edema, Respiratory: Negative for shortness of breath, cough, wheezing, and pleuritic chest pain, Abdomen/GI: Negative for nausea, vomiting, diarrhea Back: Negative for injury and pain, : Negative for injury, bleeding, discharge, and swelling, MS/Extremity: Negative for injury and deformity, Skin: Negative for injury, rash, and discoloration, Neuro: Negative for numbness, tingling, and seizure. Exam: 08:15 Constitutional: This is a well developed, well nourished patient who is awake, alert, rn and in no acute distress. Head/Face: Normocephalic, atraumatic. ENT: dry MM Neck: Trachea midline, no thyromegaly or masses palpated, and no cervical lymphadenopathy. Supple, full range of motion without nuchal rigidity, or vertebral point tenderness. No Meningismus. Cardiovascular: Regular rate and rhythm. No pulse deficits. Respiratory: No increased work of breathing, no retractions or nasal flaring. Abdomen/GI: soft, non-tender, no rebound or masses MS/ Extremity: Pulses equal, no cyanosis. Neurovascular intact. Full, normal range of motion. Equal circumference. Neuro: Awake and alert, GCS 15, oriented to person, place, time, and situation. Cranial nerves II-XII grossly intact. Motor strength 4/5 in all extremities. Sensory grossly intact. Cerebellar exam normal. Vital Signs: 08:05 BP 155 / 87; Pulse 60; Resp 16 S; Temp 99.1(O); Pulse Ox 98% on R/A; aa5 09:15 BP 184 / 84; Pulse 56; Resp 17; Temp 98.2(O); Pulse Ox 100% on R/A; mh5 10:27 BP 196 / 90; Pulse 66; Resp 17; Temp 98.6(O); Pulse Ox 97% on R/A; aa5 11:10 BP 170 / 80; Pulse 64; Resp 16 S; Temp 98.6(O); Pulse Ox 98% on R/A; Pain 0/10; aa5 10:27 MD notified of increased BP. No further orders received. aa5 MDM: 08:08 Patient medically screened. rn 10:46 Differential diagnosis: closed head injury, contusion. Data reviewed: vital signs, rn nurses notes, lab test result(s), radiologic studies, CT scan, plain films, and as a result, I will discharge patient. Counseling: I had a detailed discussion with the patient and/or guardian regarding: the historical points, exam findings, and any diagnostic results supporting the discharge/admit diagnosis, lab results, radiology results, the need for outpatient follow up, to return to the emergency department if symptoms worsen or persist or if there are any questions or concerns that arise at home. Special discussion: Based on the patient's history, exam and DX evaluation, there is no indication for emergent intervention or inpatient TX. It is understood by the patient/guardian that if the SXs persist or worsen they need to return immediately for re-evaluation. I discussed with the patient/guardian in detail that at this point there is no indication for admission to the hospital. It is understood, however, that if the symptoms persist or worsen the patient needs to return immediately for re-evaluation. 06/19 08:10 Order name: CBC with Diff; Complete Time: 09:38 rn 06/19 08:10 Order name: Basic Metabolic Panel; Complete Time: 09:38 rn 06/19 08:10 Order name: Hepatic Function; Complete Time: 09:38 rn 06/19 08:10 Order name: Lipase; Complete Time: 09:38 06/19 08:15 Order name: Urine Microscopic Only 06/19 09:56 Order name: Urine Dipstick--Ancillary (enter results) 06/19 08:10 Order name: IV Start; Complete Time: 09:30 rn 06/19 08:10 Order name: CT Head Brain wo Cont; Complete Time: 09:38 rn 06/19 08:10 Order name: Labs collected and sent; Complete Time: 09:30 rn 06/19 08:10 Order name: XRAY KUB; Complete Time: 10:28 rn 06/19 08:15 Order name: Urine Dipstick-Ancillary (obtain specimen); Complete Time: 09:57 rn Administered Medications: 09:10 Drug: NS 0.9% 500 ml Route: IV; Rate: bolus; Site: right forearm; aa5 Disposition: 06/19/19 10:47 Discharged to Home. Impression: Superficial injury of head, Constipation, unspecified, Dehydration. - Condition is Stable. - Discharge Instructions: Dehydration, Adult, Head Injury, Adult, Constipation, Adult, [id number]. - Medication Reconciliation Form, Thank You Letter, Antibiotic Education, Prescription Opioid Use form. - Follow up: Private Physician; When: As needed; Reason: Recheck today's complaints, Re-evaluation by your physician. - Problem is new. - Symptoms have improved. Signatures: Dispatcher [employer] EDGilberto Mclean MD MD rn Curtis, Nirali, RN RN aa5 Corrections: (The following items were deleted from the chart) 09:30 08:10 Accucheck ordered. sukhjinder aa5 11:26 10:47 06/19/2019 10:47 Discharged to Home. Impression: Superficial injury of head; aa5 Constipation, unspecified; Dehydration. Condition is Stable. Forms are Medication Reconciliation Form, Thank You Letter, Antibiotic Education, Prescription Opioid Use. Follow up: Private Physician; When: As needed; Reason: Recheck today's complaints, Re-evaluation by your physician. Problem is new. Symptoms have improved. rn
--- NOTE | 2019-06-19 10:48 | ER ---
Nurse's Notes [facility] Name: Arun Mccall Age: 73 yrs Sex: Male : 1945 Arrival Date: 06/19/2019 Time: 08:04 Bed 18 Private MD: Diagnosis: Superficial injury of head;Constipation, unspecified;Dehydration Presentation: 06/19 08:04 Risk Assessment: Do you want to hurt yourself or someone else? Patient reports no aa5 desire to harm self or others. Initial Sepsis Screen: Does the patient meet any 2 criteria? No. Patient's initial sepsis screen is negative. Does the patient have a suspected source of infection? No. Patient's initial sepsis screen is negative. Care prior to arrival: Glucose check: 230. 08:04 Acuity: CHAYITO 3 aa5 08:04 Presenting complaint: EMS states: "pt called 911 for fall after trying to get something aa5 up off the floor at 0200 and hitting his head on carpet". Negative LOC. Pt also states "my head has been feeling mushy for a long time now" (previous to fall). Pt c/o last normal BM was 1 week ago and RLQ pain. Pt reports small BM this morning. Transition of care: patient was not received from another setting of care. Onset of symptoms was 2018. 08:04 Method Of Arrival: EMS: [facility] aa5 Historical: - Allergies: 08:05 No Known Allergies; aa5 - PMHx: 08:05 Diabetes - IDDM; Hypertension; aa5 - PSHx: 08:05 Colon sx; aa5 - Immunization history:: Flu vaccine is not up to date. - Social history:: Smoking status: Patient uses tobacco products, denies chronic smoking, but will smoke occasionally. - Ebola Screening: : No symptoms or risks identified at this time. - Family history:: not pertinent. - Hospitalizations: : No recent hospitalization is reported. Screenin:30 Fall Risk Fall in past 12 months (25 points). IV access (20 points). Total Alfred Fall aa5 Scale indicates High Risk Score (45 or more points). Fall prevention measures have been instituted. Side Rails Up X 2 Placed Close to Nursing Station. 08:35 Abuse screen: Denies threats or abuse. Nutritional screening: No deficits noted. aa5 Tuberculosis screening: No symptoms or risk factors identified. Assessment: 08:05 General: Appears comfortable, Behavior is calm, cooperative. Pain: Complains of pain in aa5 right lower quadrant Pain does not radiate. Pain currently is 0 out of 10 on a pain scale. Is intermittent. Neuro: Level of Consciousness is awake, alert, obeys commands, Oriented to person, place, time, situation, Money Market Dealer are equal bilaterally Moves all extremities. Speech is normal, Facial symmetry appears normal, Pupils are PERRLA, Denies weakness headache. Cardiovascular: Heart tones S1 S2 present Rhythm is regular. Respiratory: Airway is patent Respiratory effort is even, unlabored, Respiratory pattern is regular, symmetrical. GI: Abdomen is round non-distended, Bowel sounds present X 4 quads. Abd is soft and non tender X 4 quads. Reports constipation, Patient currently denies nausea, vomiting. : No signs and/or symptoms were reported regarding the genitourinary system. EENT: No signs and/or symptoms were reported regarding the EENT system. Derm: Skin is pink, warm \\T\\ dry. Musculoskeletal: Range of motion: intact in all extremities. 08:31 Reassessment: Patient is alert, oriented x 3, equal unlabored respirations, skin aa5 warm/dry/pink. Pt taken to radiology . 09:05 Reassessment: Patient is alert, oriented x 3, equal unlabored respirations, skin aa5 warm/dry/pink. Patient denies pain at this time. Back from radiology . 09:55 Reassessment: Pt resting in bed with eyes closed, respirations even and unlabored, skin aa5 is pink/warm/dry. . 10:58 Reassessment: Patient is alert, oriented x 3, equal unlabored respirations, skin aa5 warm/dry/pink. To bedside to d/c pt home, pt states he does not have a ride home. Will call taxi for patient, pt agrees. Pt sitting up in bed eating a sandwich, pt tolerating well. . 11:20 Reassessment: Patient is alert, oriented x 3, equal unlabored respirations, skin aa5 warm/dry/pink. Patient denies pain at this time. Vital Signs: 08:05 BP 155 / 87; Pulse 60; Resp 16 S; Temp 99.1(O); Pulse Ox 98% on R/A; aa5 09:15 BP 184 / 84; Pulse 56; Resp 17; Temp 98.2(O); Pulse Ox 100% on R/A; mh5 10:27 BP 196 / 90; Pulse 66; Resp 17; Temp 98.6(O); Pulse Ox 97% on R/A; aa5 11:10 BP 170 / 80; Pulse 64; Resp 16 S; Temp 98.6(O); Pulse Ox 98% on R/A; Pain 0/10; aa5 10:27 MD notified of increased BP. No further orders received. aa5 ED Course: 08:04 Patient arrived in ED. aa5 08:04 Arm band placed on Patient placed in an exam room, on a stretcher. aa5 08:08 Gilberto Burden MD is Attending Physician. rn 08:08 Nirali Curtis, RN is Primary Nurse. aa5 08:30 Initial lab(s) drawn, by id, sent to lab. Inserted saline lock: 20 gauge in right aa5 forearm, using aseptic technique. Blood collected. 08:34 Triage completed. aa5 08:52 XRAY KUB In Process Unspecified. EDMS 09:00 CT Head Brain wo Cont In Process Unspecified. EDMS 09:17 Patient has correct armband on for positive identification. Placed in gown. Bed in low mh5 position. Call light in reach. Side rails up X2. Warm blanket given. Pulse ox on. NIBP on. 09:56 Urine Microscopic Only Sent. 5 09:57 Urine collected: clean catch specimen, clear. 5 11:20 No provider procedures requiring assistance completed. IV discontinued, intact, aa5 bleeding controlled, No redness/swelling at site. Pressure dressing applied. Administered Medications: 09:10 Drug: NS 0.9% 500 ml Route: IV; Rate: bolus; Site: right forearm; aa5 Outcome: 10:47 Discharge ordered by . rn 11:20 Discharged to home via wheelchair, via taxi aa5 11:20 Condition: good 11:20 Discharge instructions given to patient, Instructed on discharge instructions, follow up and referral plans. Demonstrated understanding of instructions, follow-up care. 11:26 Patient left the ED. aa5 Signatures: Dispatcher [employer] EDNH Gilberto Burden MD MD rn Nirali CurtisASTRID RN5 Meaghan Meyers [facility] Corrections: (The following items were deleted from the chart) : 11:30 No provider procedures requiring assistance completed. ruby5 ruby5 : 11:30 IV discontinued, intact, bleeding controlled, No redness/swelling at site. aa5 Pressure dressing applied, aa5 15: 10:27 BP 196 / 90; Pulse 66bpm; Resp 17bpm; Pulse Ox 97% RA; Temp 98.6F Oral; mh5 5
[2019-06-19 10:59] LABS: Urine Bacteria <20 /HPF (NONE SEEN); Urine Culture Reflex Order NOT NEEDED; Urine RBC NONE SEEN /HPF (NONE SEEN)
[2019-06-19 11:39] VITALS: BP 196/90; TEMP 98.6; O2SAT 97
[2019-06-19 12:45] LABS: Urine Blood TRACE (NEG); Urine Glucose NEGATIVE (NEG); Urine Protein 3+ (NEG)
== END 2019-06-19 11:26 | disposition home or self-care (01) ==
LOC: ER 07:59
DX: E86.0 Dehydration (principal); K59.00 Constipation, unspecified; I10 Essential (primary) hypertension; E11.9 Type 2 diabetes mellitus without complications; W19.XXXA Unspecified fall, initial encounter; Y93.89 Activity, other specified; Y92.9 Unspecified place or not applicable; Z72.0 Tobacco use
CPT/HCPCS: 85025; 80048; 36415; 80076; 83690; 70450; 74018; 99284; J7040; 81003; 81015

== ENCOUNTER 2019-06-22 09:16 | Emergency (ER) | payer OTHER ==
[2019-06-22 10:23] LABS: Urine Blood TRACE (NEG); Urine Glucose NEGATIVE (NEG); Urine Protein 3+ (NEG); Urine Specific Gravity 1.015 (1.005-1.030)
[2019-06-22 10:38] LABS: Absolute Lymphocytes (CBC) 1.3 K/uL (0.7-4.9); Basophils % 0.5 % (0-1.3); Hematocrit 43.4 % (39.6-49.0); Lymphocytes % 19.4 % (15.3-44.8); MPV 10.6 fL (7.6-11.3); RBC Red Blood Cell Count 4.88 M/uL (4.33-5.43)
[2019-06-22 10:39] LABS: Protime INR 1.05
[2019-06-22] MEDS ORDERED: LORAZEPAM 0.5 MG TABLET ONE (10:43)
[2019-06-22 10:49] LABS: ALT/SGPT 28 U/L (12-78); AST/SGOT 28 U/L (15-37); Albumin 3.4 g/dL (3.4-5.0); Alkaline Phosphatase 73 U/L (45-117); BUN Blood Urea Nitrogen 19 mg/dL (7-18); Bicarbonate 26 mmol/L (21-32); Bilirubin Direct 0.1 mg/dL (0-0.2); Bilirubin Total 0.5 mg/dL (0.2-1.0); Glucose Level 129 mg/dL (74-106); Magnesium 2.4 mg/dL (1.8-2.4); NT PRO-BNP 175 pg/mL (<125); Potassium 4.1 mmol/L (3.5-5.1); Protein, Total 6.9 g/dL (6.4-8.2); Sodium Level 140 mmol/L (136-145); Troponin (Emerg Dept Use Only) < 0.02 ng/mL (0.0-0.045)
--- NOTE | 2019-06-22 10:55 | RAD REPORT ---
EXAM DESCRIPTION: RAD - Chest Single View - 06/22/2019 10:32 am CLINICAL HISTORY: Shortness of breath, difficulty breathing COMPARISON: Portal imaging May 17 TECHNIQUE: AP portable chest image was obtained 1025 hours . FINDINGS: Lung volumes remain low. Left hemidiaphragm elevation again noted. This limits retrocardia c left base assessment. Lung whatley are clear of a peripheral mass or consolidation. Interstitial pat tern is accentuated by shallow inspiration. Interstitial pattern is not significantly different. Hear t and vasculature are normal. No measurable pleural effusion and no pneumothorax. No acute bony abnor mality seen. No acute aortic findings suspected. IMPRESSION: Limited examination without acute cardiopulmonary finding.
[2019-06-22] MEDS ORDERED: ONDANSETRON 4 MG/2 ML VIAL ONE (11:31)
--- NOTE | 2019-06-22 11:56 | RAD REPORT ---
EXAM DESCRIPTION: CT - Head Brain Wo Cont - 06/22/2019 11:48 am CLINICAL HISTORY: Transient alteration of awareness COMPARISON: CT head June 19 TECHNIQUE: Axial 5 mm thick images of the head were obtained without IV contrast. All CT scans are performed using dose optimization technique as appropriate and may include automated exposure control or mA/KV adjustment according to patient size. FINDINGS: No intracranial hemorrhage, mass, edema or shift of mid-line structures. No acute cortical based infarction. Patient has moderately prominent atrophy and mild chronic ischemic change. Pattern is similar to the comparison. No abnormal extra-axial fluid collections. Ventricles are in proportio n to volume loss. Mastoid air cells are clear. Left maxillary sinus mucosal thickening present. No air-fluid level. No acute bony findings. IMPRESSION: Atrophy and chronic ischemic changes match comparison. No acute intracranial finding.
--- NOTE | 2019-06-22 13:12 | EDPHYS ---
Physician Documentation [facility] Name: Arun Mccall Age: 73 yrs Sex: Male : 1945 Arrival Date: 06/22/2019 Time: 09:21 Bed 5 Private MD: ED Physician Jordan Mack HPI: 06/22 13:17 This 73 yrs old Male presents to ER via EMS with complaints of "i can't get kdr to sleep or wake up". 13:17 The patient states that he has not been able to get to sleep nor wake up. He has no kdr focal c/o. He states that he had taken some medication to help him sleep but is now not able to sleep.. Onset: The symptoms/episode began/occurred gradually, at an unknown time. 13:21 EMS reports that the patient had called for SOB but that when they arrived, he would kdr not respond or open his eyes. They administered ammonia capsule at which time the patient became more responsive but would still not respond to their questions. On admission to the ED, the patient is responding fully and appropriative all questions. He states that he has not been able to sleep or wake appropriately but has no other apparent deficit or c/o. Historical: - Allergies: 09:35 fenofibrate nanocrystallized; jl7 09:35 insulin degludec; 7 - Home Meds: 09:35 Metoprolol Tartrate Oral [Active]; Lorazepam Oral [Active]; jl7 - PMHx: 09:35 Diabetes - IDDM; Hypertension; - PSHx: 09:35 Colon sx; jl7 - Immunization history:: Adult Immunizations unknown. - Ebola Screening: : No symptoms or risks identified at this time. - Social history:: Smoking status: unknown. ROS: 13:24 Constitutional: Negative for fever, chills, and weight loss, Eyes: Negative for injury, kdr pain, redness, and discharge, ENT: Negative for injury, pain, and discharge, Neck: Negative for injury, pain, and swelling, Cardiovascular: Negative for chest pain, palpitations, and edema, Respiratory: Negative for shortness of breath, cough, wheezing, and pleuritic chest pain, Abdomen/GI: Negative for abdominal pain, nausea, vomiting, diarrhea, and constipation, Back: Negative for injury and pain, : Negative for injury, bleeding, discharge, and swelling, MS/Extremity: Negative for injury and deformity, Skin: Negative for injury, rash, and discoloration, Psych: Negative for depression, anxiety, suicide ideation, homicidal ideation, and hallucinations, Allergy/Immunology: Negative for hives, rash, and allergies, Endocrine: Negative for neck swelling, polydipsia, polyuria, polyphagia, and marked weight changes, Hematologic/Lymphatic: Negative for swollen nodes, abnormal bleeding, and unusual bruising. 13:24 Neuro: Positive for weakness, Negative for headache, hearing loss, loss of consciousness, numbness, seizure activity, speech changes, syncope, near syncope, tingling, tinnitus, tremor. Exam: 13:24 Constitutional: This is a disheveled but well developed, well nourished patient who kdr is awake, mmoderately alert, and in no acute distress. Head/Face: Normocephalic, atraumatic. Eyes: Pupils equal round and reactive to light, extra-ocular motions intact. Lids and lashes normal. Conjunctiva and sclera are non-icteric and not injected. Cornea within normal limits. Periorbital areas with no swelling, redness, or edema. Neck: Trachea midline, no thyromegaly or masses palpated, and no cervical lymphadenopathy. Supple, full range of motion without nuchal rigidity, or vertebral point tenderness. No Meningismus. Chest/axilla: Normal chest wall appearance and motion. Nontender with no deformity. No lesions are appreciated. Cardiovascular: Regular rate and rhythm with a normal S1 and S2. No gallops, murmurs, or rubs. Normal PMI, no JVD. No pulse deficits. Respiratory: Lungs have equal breath sounds bilaterally, clear to auscultation and percussion. No rales, rhonchi or wheezes noted. No increased work of breathing, no retractions or nasal flaring. Abdomen/GI: Soft, non-tender, with normal bowel sounds. No distension or tympany. No guarding or rebound. No evidence of tenderness throughout. Back: No spinal tenderness. No costovertebral tenderness. Full range of motion. Skin: Warm, dry with normal turgor. Normal color with no rashes, no lesions, and no evidence of cellulitis. MS/ Extremity: Pulses equal, no cyanosis. Neurovascular intact. Full, normal range of motion. Neuro: Awake and alert, GCS 15, oriented to person, place, time, and situation. Cranial nerves II-XII grossly intact. Motor strength 5/5 in all extremities. Sensory grossly intact. Cerebellar exam normal. Normal gait - the patient was ambulating around the department and to the bathroom accord to nursing staff without difficulty Psych: Awake, alert, with orientation to person, place and time. Behavior, mood, and affect are within normal limits. Vital Signs: 09:35 BP 150 / 86; Pulse 66; Resp 17; Pulse Ox 100% ; jl7 10:23 BP 154 / 87; Pulse 63; Resp 16 S; Pulse Ox 99% on R/A; jl7 11:38 BP 155 / 82; Pulse 59; Resp 16; Pulse Ox 100% ; jl7 MDM: 13:11 Patient medically screened. kdr 13:24 Data reviewed: vital signs, nurses notes, lab test result(s), EKG, radiologic studies. kdr Counseling: I had a detailed discussion with the patient and/or guardian regarding: the historical points, exam findings, and any diagnostic results supporting the discharge/admit diagnosis, the presence of at least one elevated blood pressure reading (>120/80) during this emergency department visit. 06/22 09:46 Order name: Basic Metabolic Panel; Complete Time: 11: kdr 06/22 09:46 Order name: CBC with Diff; Complete Time: 11: kdr 06/22 09:46 Order name: LFT's; Complete Time: 11: kdr 06/22 09:46 Order name: Magnesium; Complete Time: 11: kdr 06/22 09:46 Order name: NT PRO-BNP; Complete Time: 11: kdr 06/22 09:46 Order name: PT-INR; Complete Time: 11: kdr 06/22 09:46 Order name: Troponin (emerg Dept Use Only); Complete Time: 11: kdr 06/22 09:46 Order name: XRAY Chest (1 view); Complete Time: 11: kdr 06/22 09:46 Order name: EKG; Complete Time: 09:46 kdr 06/22 09:47 Order name: Blood Culture Adult (2) kdr 06/22 10:14 Order name: Urine Dipstick--Ancillary (enter results); Complete Time: 11:01 ms 06/22 11:03 Order name: CT Head Brain wo Cont; Complete Time: 12:26 kdr 06/22 09:46 Order name: Cardiac monitoring; Complete Time: 10: kdr 06/22 09:46 Order name: EKG - Nurse/Tech; Complete Time: 10: kdr 06/22 09:46 Order name: IV Saline Lock; Complete Time: 10: kdr 06/22 09:46 Order name: Labs collected and sent; Complete Time: 10: kdr 06/22 09:46 Order name: O2 Per Protocol; Complete Time: 10: kdr 06/22 09:46 Order name: O2 Sat Monitoring; Complete Time: 10: kdr 06/22 09:47 Order name: Urine Dipstick-Ancillary (obtain specimen); Complete Time: : [facility] Administered Medications: 10:45 Drug: Ativan 0.5 mg Route: PO; 7 11:38 Follow up: Response: No adverse reaction 7 11:34 Drug: Zofran 4 mg Route: IVP; Site: left antecubital; jl7 12:00 Follow up: Response: No adverse reaction; Nausea is decreased jl7 Disposition: 06/22/19 13:11 Discharged to Home. Impression: Confusion, Weakness. - Condition is Stable. - Discharge Instructions: Confusion, Weakness, [id number]. - Medication Reconciliation Form, Thank You Letter form. - Follow up: Private Physician; When: 2 - 3 days; Reason: If symptoms return, Further diagnostic work-up, Recheck today's complaints, Continuance of care, Re-evaluation by your physician. - Problem is new. - Symptoms have improved. Signatures: Dispatcher [employer] EDWV Jordan Mack MD MD kdr Hortencia Burton RN RN jl7 Corrections: (The following items were deleted from the chart) 13:59 13:11 06/22/2019 13:11 Discharged to Home. Impression: Confusion; Weakness. Condition jl7 is Stable. Forms are Medication Reconciliation Form, Thank You Letter, Antibiotic Education, Prescription Opioid Use. Follow up: Private Physician; When: 2 - 3 days; Reason: If symptoms return, Further diagnostic work-up, Recheck today's complaints, Continuance of care, Re-evaluation by your physician. Problem is new. Symptoms have improved. kdr
--- NOTE | 2019-06-22 13:12 | ER ---
Nurse's Notes [facility] Name: Arun Mccall Age: 73 yrs Sex: Male : 1945 Arrival Date: 06/22/2019 Time: 09:21 Bed 5 Private MD: Diagnosis: Confusion;Weakness Presentation: 06/22 09:30 Initial Sepsis Screen: Does the patient meet any 2 criteria? No. Patient's initial jl7 sepsis screen is negative. Does the patient have a suspected source of infection? No. Patient's initial sepsis screen is negative. 09:31 Presenting complaint: EMS states: Pt called due to difficulty breathing, pt would not jl7 open his eyes on arrival, EMS used ammonia and pt woke up but still kept his eyes closed, pt is oriented x 4 and will answer questions, BGL 146. Transition of care: patient was not received from another setting of care. Onset of symptoms was June 22, 2019. Risk Assessment: Do you want to hurt yourself or someone else? Patient reports no desire to harm self or others. Care prior to arrival: Glucose check: 146. 09:31 Method Of Arrival: EMS: [facility] jl7 09:31 Acuity: CHAYITO 3 jl7 Historical: - Allergies: 09:35 fenofibrate nanocrystallized; jl7 09:35 insulin degludec; jl7 - Home Meds: 09:35 Metoprolol Tartrate Oral [Active]; Lorazepam Oral [Active]; jl7 - PMHx: 09:35 Diabetes - IDDM; Hypertension; jl7 - PSHx: 09:35 Colon sx; jl7 - Immunization history:: Adult Immunizations unknown. - Ebola Screening: : No symptoms or risks identified at this time. - Social history:: Smoking status: unknown. Screenin:30 Abuse screen: Denies threats or abuse. Denies injuries from another. Nutritional jl7 screening: No deficits noted. Tuberculosis screening: No symptoms or risk factors identified. Fall Risk IV access (20 points). Total Alfred Fall Scale indicates No Risk (0-24 pts). Assessment: 09:30 General: Appears in no apparent distress. uncomfortable, Behavior is cooperative, jl7 anxious. Pain: Denies pain. Neuro: Level of Consciousness is awake, alert, obeys commands, Oriented to person, place, time, situation. Cardiovascular: Heart tones present Patient's skin is warm and dry. Respiratory: Airway is patent Respiratory effort is even, unlabored, Respiratory pattern is regular, symmetrical, Breath sounds are clear bilaterally. GI: Abdomen is non-distended. : No signs and/or symptoms were reported regarding the genitourinary system. Derm: Skin is pink, warm \\T\\ dry. 10:24 Reassessment: Patient appears in no apparent distress at this time. No changes from jl7 previously documented assessment. Patient and/or family updated on plan of care and expected duration. Pain level reassessed. Patient is alert, oriented x 3, equal unlabored respirations, skin warm/dry/pink. 10:39 Reassessment: pt reports "I'm feeling really anxious and think I need something to calm jl7 down a little." ERD notified, see MAR for orders. 11:00 Reassessment: Patient reports numbness to MARIA T feet. Pedal pulse strong bilaterally, ae4 feet cold upon palpation, socks provided. 11:33 Reassessment: Pt reports nausea, ERD notified, see MAR for orders. jl7 Vital Signs: 09:35 BP 150 / 86; Pulse 66; Resp 17; Pulse Ox 100% ; jl7 10:23 BP 154 / 87; Pulse 63; Resp 16 S; Pulse Ox 99% on R/A; jl7 11:38 BP 155 / 82; Pulse 59; Resp 16; Pulse Ox 100% ; jl7 ED Course: 09:21 Patient arrived in ED. ae4 09:25 Jordan Makc MD is Attending Physician. kdr 09:30 Patient has correct armband on for positive identification. Bed in low position. Call [facility] light in reach. Side rails up X2. environmental monitoring specialist on. Pulse ox on. NIBP on. Warm blanket given. 09:31 Hortencia Burton RN is Primary Nurse. jl7 09:34 Triage completed. jl7 09:36 Arm band placed on right wrist. jl7 09:50 EKG done, by ED staff, reviewed by Jordan Mack MD. dh3 10:00 Initial lab(s) drawn, by me, sent to lab. First set of blood cultures drawn by , jlMatt Urine collected:. Missed attempt(s): 20 gauge in left wrist. Bleeding controlled, band aid applied, catheter tip intact. 10:18 Inserted saline lock: 20 gauge in left antecubital area, using aseptic technique. Blood jl7 collected. 10:18 Second set of blood cultures drawn by me. jl7 10:33 XRAY Chest (1 view) In Process Unspecified. EDMS 11:47 CT completed. Patient tolerated procedure well. Patient moved back from CT. bq 11:48 CT Head Brain wo Cont In Process Unspecified. EDMS 13:59 No provider procedures requiring assistance completed. IV discontinued, intact, jl7 bleeding controlled, No redness/swelling at site. Pressure dressing applied. Administered Medications: 10:45 Drug: Ativan 0.5 mg Route: PO; jl7 11:38 Follow up: Response: No adverse reaction jl7 11:34 Drug: Zofran 4 mg Route: IVP; Site: left antecubital; jl7 12:00 Follow up: Response: No adverse reaction; Nausea is decreased jl7 Outcome: 13:11 Discharge ordered by . robert 13:59 Discharged to home ambulatory. jl7 13:59 Condition: stable 13:59 Discharge instructions given to patient, Instructed on discharge instructions, follow up and referral plans. Demonstrated understanding of instructions, follow-up care. 13:59 Patient left the ED. jl7 Signatures: Dispatcher [employer] EDMS Jordan Mack MD MD kdr Quilty, Betty bq Leal, Jahala, RN RN jl7 Kristen Soler [facility] Messi Denney RN RN ae4
[2019-06-22 15:33] VITALS: BP 155/82; O2SAT 100
--- NOTE | 2019-06-23 09:37 | EKG ---
Test Date: 2019-06-22 Test Time: 09:41:19 Denture Technician: KATHRIN MEASUREMENT RESULTS: Intervals: Rate: 65 AL: 166 QRSD: 122 QT: 448 QTc: 465 Perry: P: 14 AL: 166 QRS: -21 T: 14 INTERPRETIVE STATEMENTS: Normal sinus rhythm Right bundle branch block Abnormal ECG Compared to ECG 05/17/2019 01:45:12 No significant changes Electronically Signed On 06-23-19 09:36:05 FINISH PRODUCTION MANAGER by Joseph Fuentes
== END 2019-06-22 13:59 | disposition home or self-care (01) ==
LOC: ER 09:16
DX: R53.1 Weakness (principal); I10 Essential (primary) hypertension; E11.9 Type 2 diabetes mellitus without complications; Z88.8 Allergy status to other drugs, medicaments and biological substances
CPT/HCPCS: 93005; 87040; 85025; 80048; 36415; 83735; 85610; 80076; 81003; 84484; 83880; 70450; 71045; 96374; 99285; J2405

== ENCOUNTER 2019-06-25 19:27 | Emergency (ER) | payer OTHER ==
--- OUTSIDE RECORDS SUMMARY | 2019-06-25 19:28 | XMS REPORT ---
:1945 [facility] Address [address] [place] [address] Care Team Providers Name Role Phone Unavailable Unavailable Unavailable Problems This patient has no known problems. Allergies, Adverse Reactions, Alerts This patient has no known allergies or adverse reactions. Medications This patient has no known medications.
--- NOTE | 2019-06-25 20:02 | RAD REPORT ---
EXAM DESCRIPTION: RAD - Chest Single View - 06/25/2019 7:55 pm CLINICAL HISTORY: SOB Chest pain. COMPARISON: Chest Single View dated 06/22/2019; Abdomen 1 View (KUB) dated 06/19/2019; Abdomen Acute Series dated 05/17/2019 FINDINGS: Portable technique limits examination quality. Mild elevation of left hemidiaphragm is seen. The lungs are grossly clear. The heart is mildly enlarg ed. No displaced fractures. IMPRESSION: No acute intrathoracic process suspected.
[2019-06-25 20:10] LABS: Absolute Lymphocytes (CBC) 1.6 K/uL (0.7-4.9); Hematocrit 44.1 % (39.6-49.0); Lymphocytes % 21.8 % (15.3-44.8); MPV 10.3 fL (7.6-11.3); RBC Red Blood Cell Count 4.89 M/uL (4.33-5.43)
[2019-06-25 20:14] LABS: Protime INR 1.07
[2019-06-25 20:33] LABS: ALT/SGPT 30 U/L (12-78); AST/SGOT 28 U/L (15-37); Albumin 3.5 g/dL (3.4-5.0); Alkaline Phosphatase 79 U/L (45-117); BUN Blood Urea Nitrogen 23 mg/dL (7-18); Bicarbonate 27 mmol/L (21-32); Bilirubin Direct 0.2 mg/dL (0-0.2); Bilirubin Total 0.4 mg/dL (0.2-1.0); Glucose Level 134 mg/dL (74-106); Magnesium 2.3 mg/dL (1.8-2.4); NT PRO-BNP 154 pg/mL (<125); Potassium 4.1 mmol/L (3.5-5.1); Sodium Level 139 mmol/L (136-145); Troponin (Emerg Dept Use Only) < 0.02 ng/mL (0.0-0.045)
--- NOTE | 2019-06-25 21:42 | ER ---
Nurse's Notes [facility] Name: Arun Mccall Age: 73 yrs Sex: Male : 1945 Arrival Date: 06/25/2019 Time: 19:29 Bed 6 Private MD: Diagnosis: Anxiety disorder, unspecified;Dizziness and giddiness Presentation: 06/25 19:35 Presenting complaint: EMS states: COMPLAINED OF AFTER TAKING THE INSULIN DOSE. WITH rv HISTORY OF ANXIETY AND IS ALREADY ON LORAZEPAM. HE TOOK ONE DOSE OF ATIVAN AND CALLED 911 AFTER 5 MINUTES. Transition of care: patient was not received from another setting of care. Onset of symptoms was June 25, 2019 at 19:00. Risk Assessment: Do you want to hurt yourself or someone else? Patient reports no desire to harm self or others. Initial Sepsis Screen: Does the patient meet any 2 criteria? No. Patient's initial sepsis screen is negative. Does the patient have a suspected source of infection? No. Patient's initial sepsis screen is negative. Care prior to arrival: None. 19:35 Method Of Arrival: EMS: [facility] rv 19:35 Acuity: CHAYITO 3 rv Triage Assessment: 19:39 General: Appears in no apparent distress. comfortable, Behavior is calm, cooperative. rv Pain: Denies pain. EENT: No signs and/or symptoms were reported regarding the EENT system. Neuro: Level of Consciousness is awake, alert, obeys commands, Oriented to person, place, time, situation. Cardiovascular: Patient's skin is warm and dry. Respiratory: Airway is patent. GI: No signs and/or symptoms were reported involving the gastrointestinal system. : No signs and/or symptoms were reported regarding the genitourinary system. Derm: Skin is intact. Musculoskeletal: No signs and/or symptoms reported regarding the musculoskeletal system. Historical: - Allergies: 20:06 fenofibrate nanocrystallized; rv 20:06 insulin degludec; rv - Home Meds: 20:06 Lorazepam Oral [Active]; Metoprolol Tartrate Oral [Active]; rv - PMHx: 20:06 Diabetes - IDDM; Hypertension; Anxiety; rv - PSHx: 20:06 colon surgery; rv - Immunization history:: Adult Immunizations unknown, Flu vaccine is not up to date. - Social history:: Smoking status: Patient uses tobacco products, denies chronic smoking, but will smoke occasionally. - Ebola Screening: : No symptoms or risks identified at this time. Screenin:06 Abuse screen: Denies threats or abuse. Denies injuries from another. Nutritional rv screening: No deficits noted. Tuberculosis screening: No symptoms or risk factors identified. Fall Risk None identified. Vital Signs: 19:37 BP 181 / 92; Pulse 70; Resp 18; Temp 98.5; Pulse Ox 98% on R/A; Weight 108.86 kg; rv Height 5 ft. 10 in. (177.80 cm); Pain 0/10; 21:55 BP 151 / 96; Pulse 86; Resp 16; Pulse Ox 98% on R/A; rv 19:37 Body Mass Index 34.44 (108.86 kg, 177.80 cm) rv ED Course: 19:29 Patient arrived in ED. ak1 19:30 Tremayne Germain MD is Attending Physician. tw4 19:35 Pedro Lazaro RN is Primary Nurse. rv 19:37 Triage completed. rv 19:55 XRAY Chest (1 view) In Process Unspecified. EDMS 20:05 Inserted saline lock: 20 gauge in right antecubital area, using aseptic technique. oe Blood collected. 20:06 Patient has correct armband on for positive identification. Placed in gown. Bed in low rv position. Call light in reach. Side rails up X2. manager monitoring on. Pulse ox on. NIBP on. 20:06 Patient placed in the treatment room, on a stretcher, on oxygen, on phototypesetting equipment monitor, on rv pulse oximetry, Patient notified of wait time. 21:55 No provider procedures requiring assistance completed. IV discontinued, intact, rv bleeding controlled, No redness/swelling at site. Pressure dressing applied. Administered Medications: No medications were administered Outcome: 21:41 Discharge ordered by . tw4 21:55 Discharged to home ambulatory. rv 21:55 Condition: good 21:55 Discharge instructions given to patient, Instructed on discharge instructions, follow up and referral plans. medication usage, Demonstrated understanding of instructions, follow-up care, medications, Prescriptions given X 1. 21:56 Patient left the ED. rv Signatures: Dispatcher [employer] EDMS Margarita Serrato RN RN ak1 Rodriguez, PaulTremayne Young MD MD tw4 Pedro Lazaro, RN RN rv
--- NOTE | 2019-06-25 21:42 | EDPHYS ---
Physician Documentation [facility] Name: Arun Mccall Age: 73 yrs Sex: Male : 1945 Arrival Date: 06/25/2019 Time: 19:29 Bed 6 Private MD: ED Physician Tremayne Germain HPI: 06/25 20:12 This 73 yrs old Male presents to ER via EMS with complaints of dizziness, tw4 anxiety. 20:12 The patient presents with dizziness, lightheadedness. Onset: The symptoms/episode tw4 began/occurred just prior to arrival. Context: occurred at home, occurred while the patient was getting up from bed. Modifying factors: The symptoms are alleviated by nothing, the symptoms are aggravated by nothing. Associated signs and symptoms: The patient has no apparent associated signs or symptoms. Severity of symptoms: At their worst the symptoms were moderate in the emergency department the symptoms have resolved. Patient's baseline: Neuro: alert and fully oriented, Motor: no deficits, Ambulation: walks without assistance, Speech: normal. The patient has not experienced similar symptoms in the past. Historical: - Allergies: 20:06 fenofibrate nanocrystallized; rv 20:06 insulin degludec; rv - Home Meds: 20:06 Lorazepam Oral [Active]; Metoprolol Tartrate Oral [Active]; rv - PMHx: 20:06 Diabetes - IDDM; Hypertension; Anxiety; rv - PSHx: 20:06 colon surgery; rv - Immunization history:: Adult Immunizations unknown, Flu vaccine is not up to date. - Social history:: Smoking status: Patient uses tobacco products, denies chronic smoking, but will smoke occasionally. - Ebola Screening: : No symptoms or risks identified at this time. ROS: 20:12 Constitutional: Negative for fever, chills, and weight loss, Eyes: Negative for injury, tw4 pain, redness, and discharge, Cardiovascular: Negative for chest pain, palpitations, and edema, Respiratory: Negative for shortness of breath, cough, wheezing, and pleuritic chest pain, Abdomen/GI: Negative for abdominal pain, nausea, vomiting, diarrhea, and constipation, Back: Negative for injury and pain, MS/Extremity: Negative for injury and deformity. 20:12 Neuro: Positive for dizziness, Negative for altered mental status, gait disturbance, headache, hearing loss, loss of consciousness, numbness, seizure activity, speech changes, syncope, near syncope, tinnitus, tremor, visual changes. Exam: 20:12 Constitutional: This is a well developed, well nourished patient who is awake, alert, tw4 and in no acute distress. Head/Face: Normocephalic, atraumatic. Chest/axilla: Normal chest wall appearance and motion. Nontender with no deformity. No lesions are appreciated. Cardiovascular: Regular rate and rhythm with a normal S1 and S2. No gallops, murmurs, or rubs. Normal PMI, no JVD. No pulse deficits. Respiratory: Lungs have equal breath sounds bilaterally, clear to auscultation and percussion. No rales, rhonchi or wheezes noted. No increased work of breathing, no retractions or nasal flaring. Abdomen/GI: Soft, non-tender, with normal bowel sounds. No distension or tympany. No guarding or rebound. No evidence of tenderness throughout. Back: No spinal tenderness. No costovertebral tenderness. Full range of motion. MS/ Extremity: Pulses equal, no cyanosis. Neurovascular intact. Full, normal range of motion. Neuro: Awake and alert, GCS 15, oriented to person, place, time, and situation. Cranial nerves II-XII grossly intact. Motor strength 5/5 in all extremities. Sensory grossly intact. Cerebellar exam normal. Normal gait. Vital Signs: 19:37 BP 181 / 92; Pulse 70; Resp 18; Temp 98.5; Pulse Ox 98% on R/A; Weight 108.86 kg; rv Height 5 ft. 10 in. (177.80 cm); Pain 0/10; 21:55 BP 151 / 96; Pulse 86; Resp 16; Pulse Ox 98% on R/A; rv 19:37 Body Mass Index 34.44 (108.86 kg, 177.80 cm) rv MDM: 19:30 Patient medically screened. tw4 06/26 06:42 Differential diagnosis: cardiac arrhythmia, hyperventilation, idiopathic dizziness, tw4 near-syncope, vertigo. Data reviewed: vital signs, nurses notes. Data reviewed: lab test result(s), cardiac enzymes, troponin i, CBC, white blood cell count, hemoglobin, hematocrit, platelets, electrolytes, sodium, potassium, chloride, serum bicarbonate, BUN, creatinine, serum glucose, hepatic panel. Data interpreted: Pulse oximetry:. Test interpretation: by ED physician or midlevel provider: plain radiologic studies. Counseling: I had a detailed discussion with the patient and/or guardian regarding: the historical points, exam findings, and any diagnostic results supporting the discharge/admit diagnosis, lab results, radiology results. 06/25 19:33 Order name: Basic Metabolic Panel; Complete Time: 21:37 [facility] 06/25 21:40 Interpretation: GLUC 134; CRE 1.65; GFR 41; BUN 23. [facility] 06/25 19:33 Order name: CBC with Diff; Complete Time: 21:37 [facility] 06/25 21:40 Interpretation: Normal except: PLT 139. [facility] 06/25 19:33 Order name: LFT's; Complete Time: 21:37 [facility] 06/25 21:40 Interpretation: Normal except: A/G 1.0. [facility] 06/25 19:33 Order name: Magnesium; Complete Time: 21:37 [facility] 06/25 21:40 Interpretation: Within normal limits: MG 2.3. [facility] 06/25 19:33 Order name: NT PRO-BNP; Complete Time: 21:37 [facility] 06/25 21:40 Interpretation: Normal except: NT PRO-BNP 154. [facility] 06/25 19:33 Order name: PT-INR; Complete Time: 21:37 [facility] 06/25 21:40 Interpretation: Within normal limits: PT 12.6. 06/25 19:33 Order name: Troponin (emerg Dept Use Only); Complete Time: 21:37 [facility] 06/25 21:41 Interpretation: Within normal limits: TROPED < 0.02. [facility] 06/25 19:33 Order name: XRAY Chest (1 view); Complete Time: 21:37 [facility] 06/25 19:33 Order name: EKG; Complete Time: 19:35 06/25 19:33 Order name: Cardiac monitoring; Complete Time: 19:58 06/25 19:33 Order name: EKG - Nurse/Tech; Complete Time: 19:58 06/25 19:33 Order name: IV Saline Lock; Complete Time: 19:58 [facility] 06/25 19:33 Order name: Labs collected and sent; Complete Time: 19:58 [facility] 06/25 19:33 Order name: O2 Per Protocol; Complete Time: 19:58 tw4 06/25 19:33 Order name: O2 Sat Monitoring; Complete Time: :58 tw4 EC/27 20:12 Rate is 68 beats/min. Rhythm is regular with Right bundle branch block. Left axis tw4 deviation noted. IN interval is normal. QRS interval is normal. No Q waves. T waves are Normal. No ST changes noted. Clinical impression: NSR w/ Non-specific ST/T Changes. Interpreted by me. Reviewed by me. Administered Medications: No medications were administered Disposition: 06/25/19 21:41 Discharged to Home. Impression: Anxiety disorder, unspecified, Dizziness and giddiness. - Condition is Stable. - Discharge Instructions: Panic Attacks, Dizziness. - Prescriptions for Meclizine 25 mg Oral Tablet - take 1 tablet by ORAL route every 8 hours As needed; 30 tablet. - Medication Reconciliation Form, Thank You Letter, Antibiotic Education, Prescription Opioid Use form. - Follow up: Private Physician; When: Upon discharge from the Emergency Department; Reason: Recheck today's complaints, Continuance of care. - Problem is new. - Symptoms have improved. Signatures: Dispatcher [employer] EDMS Tremayne Germain MD MD tw4 Pedro Lazaro RN RN rv Corrections: (The following items were deleted from the chart) 21:56 21:41 06/25/2019 21:41 Discharged to Home. Impression: Anxiety disorder, unspecified; rv Dizziness and giddiness. Condition is Stable. Forms are Medication Reconciliation Form, Thank You Letter, Antibiotic Education, Prescription Opioid Use. Follow up: Private Physician; When: Upon discharge from the Emergency Department; Reason: Recheck today's complaints, Continuance of care. Problem is new. Symptoms have improved. tw4
[2019-06-25 22:43] VITALS: TEMP 98.5; O2SAT 98
[2019-06-25 22:45] VITALS: BP 151/96
[2019-06-25] MEDS ORDERED: ONDANSETRON 4 MG/2 ML VIAL ONE (23:28)
[2019-06-25] MEDS ORDERED: NA CHLORIDE 0.9% 0 ML ONE (23:29)
--- NOTE | 2019-06-26 09:27 | EKG ---
Test Date: 2019-06-25 Test Time: 19:45:18 Landscape Contractor: CHRISTIAN MEASUREMENT RESULTS: Intervals: Rate: 68 LA: 146 QRSD: 124 QT: 446 QTc: 474 [place]ers: P: 27 LA: 146 QRS: -33 T: -12 INTERPRETIVE STATEMENTS: Normal sinus rhythm Left axis deviation Right bundle branch block Abnormal ECG Compared to ECG 06/22/2019 09:41:19 Left-axis deviation now present Electronically Signed On 06-26-19 09:27:25 [employer]PECT[employer] by Joseph Fuentes
== END 2019-06-25 21:56 | disposition home or self-care (01) ==
LOC: ER 19:27
DX: F41.9 Anxiety disorder, unspecified (principal); I10 Essential (primary) hypertension; Z88.8 Allergy status to other drugs, medicaments and biological substances; Z72.0 Tobacco use
CPT/HCPCS: 36415; 71045; 80048; 80076; 83735; 83880; 84484; 85025; 85610; 93005; 99285; J2405; J7030

== ENCOUNTER 2022-05-14 15:04 | Observation (INO) | payer OTHER ==
--- OUTSIDE RECORDS SUMMARY | 2022-05-14 15:07 | XMS REPORT | Continuity of Care Document ---
:1945 Author Organization [facility] t Address [address] [place] [address] [address]. [address]. [address] [place] [address] Care Team Providers Name Role Phone Miller_S_AH Attending Clinician Unavailable Ajibade_O_AH Attending Clinician Unavailable Ige-Odunfernando_J_AH Attending Clinician Unavailable Ivan Contreras Attending Clinician Unavailable Ivan Contreras Attending Clinician Unavailable Miller_S_AH Admitting Clinician Unavailable Ajibade_O_AH Admitting Clinician Unavailable Ige-Odunfernando_J_AH Admitting Clinician Unavailable Ivan Contreras Admitting Clinician Unavailable Payers Payer Name Policy Type Policy Number Effective Date Expiration Date S frederick [facility] OF [place] - [id number] 7930-01-01 [employer] 00:00:00 (MEDICARE REPLACEMENT/ADVANT AGE - HMO) Problems Condition Condition Condition Status Onset Resolution Last Treating Co mments Source Name Details Category Date Date Treatment Clinician Date 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 Purpura 10-27 Family 00:00: Practic 00 e Noncomplia Noncomplia Problem Active [facility] nce with nce with 10-27 Family treatment Treatment 00:00: Prac tic 00 e Multiple Multiple Problem Active [facility] complicati Complicati 3-29 Fa rissa ons due to ons Due to 00:00: 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 Diabetes Diabetes Problem Active [facility] mellitus Mellitus 2- Family 00:00: Practic 00 e Hyperlipid Hyperlipid Problem Active [facility] emia emia 2-25 Family 00:00: Practic 00 e Morbid Morbid Problem Active [place] obesity Obesity 2- Family 00:00: Practic 00 e Generalize Generalize Problem Active 2021-0 [facility] d anxiety d Anxiety 2-25 Fami ly disorder Disorder 00:00: Practi c 00 e Essential Essential Problem Active Rosalio caballero hypertensi Hypertensi 2-25 Fa rissa on on 00:00: Practic 00 e 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 Drug Active [facility] Social History Smoking Status Start Date Stop Date Source Former Smoker [facility] Medications Ordered Filled Start Stop Current Ordering Indication Dosage Frequency Signature Comments Components Source Medication Medication Date Date Medication? Clinician (SIG) Name Name Asprin Ec Asprin Ec No 1 Q1D Asprin Ec [facility] Low Dose 81 Low Dose 81 Low Dose Family mg mg 81 mg Practic tablet,juan tablet,juan tablet,del e yed release yed release ayed Take 1 Take 1 release tablet tablet Take 1 every day every day tablet by oral by oral every day route. route. by oral route. hydroxyzine hydroxyzine No 2 Q12H hydroxyzin [facility] HCl 25 mg HCl 25 mg e HCl 25 F amily tablet Take tablet Take mg tablet [facility] 2 tablets 2 tablets Take 2 e every 12 every 12 tablets hours by hours by every 12 oral route oral route hours by as needed as needed oral route for 30 for 30 as needed days. days. for 30 days. Levemir Levemir No 55unit( Q1D Levemir Rosalio caballero FlexTouch FlexTouch s) FlexTouch Family U-100 U-100 U-100 Practic Insulin 100 Insulin 100 Insulin e unit/mL (3 unit/mL (3 100 mL) mL) unit/mL (3 subcutaneou subcutaneou mL) s pen s pen subcutaneo Inject 55 Inject 55 us pen units every units every Inject 55 day by day by units subcutaneou subcutaneou every day s route as s route as by directed directed subcutaneo for 30 for 30 us route days. 55 days. 55 as units in units in directed the morning the morning for 30 and 35 and 35 days. 55 units at units at units in night. night. the morning and 35 units at night. metoprolol metoprolol No 1 BID metoprolol [facility] tartrate 50 tartrate 50 tartrate Family mg tablet mg tablet 50 mg Prac tic Take 1 Take 1 tablet e tablet tablet Take 1 twice a day twice a day tablet by oral by oral twice a route as route as day by directed directed oral route for 30 for 30 as days. days. directed for 30 days. Vital Signs Vital Name Observation Time Observation Value Comments Source Height 2020-10-27 00:00:00 70 [in_i] [facility] BMI (Body Mass 2020-10-27 00:00:00 37.3 kg/m2 [facility] Family Index) Practice Body Weight 2020-10-27 00:00:00 260 [lb_av] [facility] BP Diastolic 2020-09-23 00:00:00 86 mm[Hg] [facility] Height 2020-09-23 00:00:00 70 [in_i] [facility] BMI (Body Mass 2020-09-23 00:00:00 37.3 kg/m2 [facility] Index) Practice BP Systolic 2020-09-23 00:00:00 136 mm[Hg] [facility] Body Weight 2020-09-23 00:00:00 260 [lb_av] [facility] Height/Length 2021-08-16 11:09:21 177.80 cm Measured Weight Dosing 2021-08-16 11:09:21 108.86 kg Procedures Procedure Date / Time Performed Performing Clinician [facility] e Extraction of Cataract [facility] Practice Removal of Colon [facility] Screening for Malignant [facility] Neoplasm of Prostate Practice Encounters Start End Encounter Admission Attending Care Care Encounter Source Date/Time Date/Time Type Type Clinicians Facility Department ID 2021-01-04 2021-01-04 Outpatient Miller_S_AH VFP VFP 792 [facility] 03:27:00 03:27:00 [id number] Family Practic e 2020-11-10 2020-11-10 Outpatient Ajibade_O_A VFP VFP 792 [facility] 06:52:00 06:52:00 H [id number] Family Practic e 2020-10-27 2020-10-27 Outpatient Ajibade_O_A VFP VFP [address] 01:51:00 01:51:00 H [id number] Family Practic e 2020-10-27 2020-10-27 [place] VFP [place] - [id number] [facility] 00:00:00 00:00:00 Sukhwinder Carrasquillo Famil y NSH TEACHER: [id number] Medical - Pract ic Tammi Crowder, [email or web address] [facility] [address] , Ph. 2020-10-21 2020-10-21 Outpatient Ajibade_O_A VFP VFP [phone] [facility] 08:40:00 08:40:00 H [id number] Family Practic e 2020-09-23 2020-09-23 Outpatient Ajibade_O_A VFP VFP [phone] [place] 04:30:00 04:30:00 H [id number] Family Practic e 2020-09-23 2020-09-23 [place] VFP [place] - [id number] [facility] ill[facility] 00:00:00 00:00:00 Sukhwinder Carrasquillo y NSH TEACHER: [id number] Medical - Pract corazon Tammi Crowder, [email or web address] [facility] [address] , Ph. 2020-03-25 2020-03-25 Outpatient Ajibade_O_A VFP VFP [phone] [facility] 04:36:00 04:36:00 H [id number] Family Practic e 2020-03-25 2020-03-25 Outpatient Ajibade_O_A VFP VFP [phone] [facility] 04:36:00 04:36:00 H [id number] Family Practic e 2020-03-25 2020-03-25 Outpatient Ajibade_O_A VFP VFP [phone] [facility] 04:36:00 04:36:00 H [id number] Family Practic e 2020-03-25 2020-03-25 Outpatient Ajibade_O_A VFP VFP [phone] [facility] 04:36:00 04:36:00 H [id number] Family Practic e 2019-09-17 2019-09-17 Outpatient Ige-Odunuga VFP VFP [phone] [facility] 07:13:00 07:13:00 _J_ [id number] Family Practic e 2019-09-17 2019-09-17 [phone] 07:13:00 07:13:00 _J_AH [id number] Family Practic e 2019-07-03 2019-07-08 Inpatient 1 Ivan Contreras [facility] [id number] 10:34:00 13:25:00 Ivan Contreras [facility] Results Test Description Test Time Test Comments Results Result Comments Source POC Glucose 2019-07-08 10:41:53 Test Item Value Reference Range Interpretation Comme nts Glucose POC (test code = 140 mg/dL 70-115 H Not nick RN or MDIf you consider your Glucose POC) patient critica lly ill, the Sj-Accu Chec k Infrom II meter should not be u sed for Glucose determination. Draw a venous Glucose and send to the main Lab for analysis. POC [id number] 07:11:51 Test Item Value Reference Range Interpretation Comments Glucose POC (test 118 mg/dL 70-115 H Notify RN or MDIf you code = Glucose POC) consider your patient critically ill, the Sj-Accu Chec k Infrom II meter should not be used for Glucos e determination. Draw a venous Glucose and send to the main Lab for analysis. POC [id number] 19:44:19 Test Item Value Reference Range Interpretation Comments Glucose POC (test 151 mg/dL 70-115 H Notify RN or MDIf you code = Glucose POC) consider your patient critically ill, the Sj-Accu Chec k Infrom II meter should not be used for Glucos e determination. Draw a venous Glucose and send to the main Lab for analysis. POC [id number] 15:05:21 Test Item Value Reference Range Interpretation Comments Glucose POC (test 119 mg/dL 70-115 H Notify RN or MDIf you code = Glucose POC) consider your patient critically ill, the Sj-Accu Chec k Infrom II meter should not be used for Glucos e determination. Draw a venous Glucose and send to the main Lab for analysis. POC [id number] 11:16:17 Test Item Value Reference Range Interpretation Comments Glucose POC (test 132 mg/dL 70-115 H Notify RN or MDIf you code = Glucose POC) consider your patient critically ill, the Sj-Accu Chec k Infrom II meter should not be used for Glucos e determination. Draw a venous Glucose and send to the main Lab for analysis. POC [id number] 06:17:22 Test Item Value Reference Range Interpretation Comments Glucose POC (test 121 mg/dL 70-115 H Notify RN or MDIf you code = Glucose POC) consider your patient critically ill, the Sj-Accu Chec k Infrom II meter should not be used for Glucos e determination. Draw a venous Glucose and send to the main Lab for analysis. POC [id number] 20:10:13 Test Item Value Reference Range Interpretation Comments Glucose POC (test 133 mg/dL 70-115 H If you con bilingual counter sales retail your code = Glucose POC) patient critically ill, the Sj-Accu Check Infrom II meter should not be used for Glucose determination. Draw a venous Glucose and send to the main Lab for analysis. POC [id number] 06:13:49 Test Item Value Reference Range Interpretation Comments Glucose POC (test 116 mg/dL 70-115 H If you con bilingual counter sales retail your code = Glucose POC) patient critically ill, the Sj-Accu Check Infrom II meter should not be used for Glucose determination. Draw a venous Glucose and send to the main Lab for analysis. POC [id number] 19:55:46 Test Item Value Reference Range Interpretation Comments Glucose POC (test 121 mg/dL 70-115 H If you con bilingual counter sales retail your code = Glucose POC) patient critically ill, the Sj-Accu Check Infrom II meter should not be used for Glucose determination. Draw a venous Glucose and send to the main Lab for analysis. POC [id number] 16:21:40 Test Item Value Reference Range Interpretation Comments Glucose POC (test 126 mg/dL 70-115 H Notify RN or MDIf you code = Glucose POC) consider your patient critically ill, the Sj-Accu Chec k Infrom II meter should not be used for Glucos e determination. Draw a venous Glucose and send to the main Lab for analysis. POC [id number] 12:10:14 Test Item Value Reference Range Interpretation Comments Glucose POC (test 138 mg/dL 70-115 H Notify RN or MDIf you code = Glucose POC) consider your patient critically ill, the Sj-Accu Chec k Infrom II meter should not be used for Glucos e determination. Draw a venous Glucose and send to the main Lab for analysis. POC [id number] 06:38:10 Test Item Value Reference Range Interpretation Comments Glucose POC (test 112 mg/dL 70-115 If you con bilingual counter sales retail your code = Glucose POC) patient critically ill, the Sj-Accu Check Infrom II meter should not be used for Glucose determination. Draw a venous Glucose and send to the main Lab for analysis. POC [id number] 19:46:42 Test Item Value Reference Range Interpretation Comments Glucose POC (test 107 mg/dL 70-115 If you con bilingual counter sales retail your code = Glucose POC) patient critically ill, the Sj-Accu Check Infrom II meter should not be used for Glucose determination. Draw a venous Glucose and send to the main Lab for analysis. RPR [id number] 15:31:56 Test Item Value Reference Range Interpretation Comments RPR Qual (test code = RPR Qual) Non-Reactive Non-Reactive Reactive Control (test code = Reactive Reactive Control) Weak Reactive Control (test Weak Reactive code = Weak Reactive Control) Non-Reactive Control (test code Non-Reactive = Non-Reactive Control) Lot # (test code = Lot #) [id number] Expiration Dt (test code = 05-29-20 N Expiration Dt) POC [id number] 15:06:05 Test Item Value Reference Range Interpretation Comments Glucose POC (test 118 mg/dL 70-115 H Notify RN or MDIf you code = Glucose POC) consider your patient critically ill, the Sj-Accu Chec k Infrom II meter should not be used for Glucos e determination. Draw a venous Glucose and send to the main Lab for analysis. POC [id number] 11:12:35 Test Item Value Reference Range Interpretation Comments Glucose POC (test 146 mg/dL 70-115 H If you con bilingual counter sales retail your code = Glucose POC) patient critically ill, the Sj-Accu Check Infrom II meter should not be used for Glucose determination. Draw a venous Glucose and send to the main Lab for analysis. POC [id number] 07:42:11 Test Item Value Reference Range Interpretation Comments Glucose POC (test 122 mg/dL 70-115 H If you con bilingual counter sales retail your code = Glucose POC) patient critically ill, the Sj-Accu Check Infrom II meter should not be used for Glucose determination. Draw a venous Glucose and send to the main Lab for analysis. POC [id number] 19:17:06 Test Item Value Reference Range Interpretation Comments Glucose POC (test 114 mg/dL 70-115 If you con bilingual counter sales retail your code = Glucose POC) patient critically ill, the Sj-Accu Check Infrom II meter should not be used for Glucose determination. Draw a venous Glucose and send to the main Lab for analysis. Urinalysis [id number] 12:27:32 Test Item Value Reference Range Interpretation Comments UA WBC (test code = UA WBC) 0-5 0-5 UA RBC (test code = UA RBC) 0-5 0-5 UA Squam Epithelial (test code = UA 0-5 Squam Epithelial) Comprehensive Metabolic [id number] 12:12:02 Test Item Value Reference Range Interpretation Comments Sodium Level (test code = Sodium 138.0 mmol/L 135.0-145.0 Level) Potassium Level (test code = 4.2 mmol/L 3.5-5.1 Potassium Level) Chloride Level (test code = 101 mmol/L 98-105 Chloride Level) CO2 (test code = CO2) 21 mmol/L 22-29 L Anion Gap (test code = Anion 16 mmol/L 7-16 Gap) BUN (test code = BUN) 21.60 mg/dL 8.00-23.00 Creatinine Level (test code = 1.40 mg/dL 0.70-1.20 H Creatinine Level) BUN/Creat Ratio (test code = 15 N BUN/Creat Ratio) Glucose Level (test code = 139 mg/dL 70-115 H Glucose Level) Calcium Level (test code = 9.2 mg/dL 8.3-10.5 Calcium Level) Alk Phos (test code = Alk Phos) 73 U/L 40-129 Bilirubin Total (test code = 0.6 mg/dL 0.1-0.9 Bilirubin Total) Albumin Level (test code = 4.1 g/dL 3.5-5.2 Albumin Level) Protein Total (test code = 6.7 g/dL 6.4-8.3 Protein Total) ALT (test code = ALT) 18 U/L 1-41 AST (test code = AST) 25 U/L 1-40 Globulin (test code = Globulin) 2.6 g/dL 2.9-3.1 L A/G Ratio (test code = A/G 1.6 ratio N Ratio) Comprehensive Metabolic [id number] 12:12:02 Test Item Value Reference Range Interpretation Comments Sodium Level (test 138.0 mmol/L 135.0-145.0 code = Sodium Level) Potassium Level 4.2 mmol/L 3.5-5.1 (test code = Potassium Level) Chloride Level (test 101 mmol/L 98-105 code = Chloride Level) CO2 (test code = 21 mmol/L 22-29 L CO2) Anion Gap (test code 16 mmol/L 7-16 = Anion Gap) BUN (test code = 21.60 mg/dL 8.00-23.00 BUN) Creatinine Level 1.40 mg/dL 0.70-1.20 H (test code = Creatinine Level) BUN/Creat Ratio 15 N (test code = BUN/Creat Ratio) Glucose Level (test 139 mg/dL 70-115 H code = Glucose Level) Calcium Level (test 9.2 mg/dL 8.3-10.5 code = Calcium Level) Alk Phos (test code 73 U/L 40-129 = Alk Phos) Bilirubin Total 0.6 mg/dL 0.1-0.9 (test code = Bilirubin Total) Albumin Level (test 4.1 g/dL 3.5-5.2 code = Albumin Level) Protein Total (test 6.7 g/dL 6.4-8.3 code = Protein Total) ALT (test code = 18 U/L 1-41 ALT) AST (test code = 25 U/L 1-40 AST) Globulin (test code 2.6 g/dL 2.9-3.1 L = Globulin) A/G Ratio (test code 1.6 ratio N = A/G Ratio) eGFR AA (test code = 60 mL/min/1.73 N eGFR (estimated eGFR AA) m2 Glomerular Filtration Rate ) is an estimated va lue, calculated from the patient's serum creatinine usin g the MDRD equation. It is NOT the patient 's actual GFR. The eGFR provides a more clinically usef ul measure of kidn ey disease than se rum creatinine alone.This calculation jeremi es sex and race in to account, if the information is provided. If th e race is not provided, and t he patient is -Peyton n, multiply by 1.2 12. If sex is not provided, and t he patient is fema le, multiply by 0.7 42. Results for pat ients <18 years of ag e have not been validated by e MDRD study and should be interpreted wit h caution. eGFR R esult Interpretation: eGFR > or = 60 is in the Normal RangeeGF R < 60 may mean kid kyle diseaseeGFR < 1 5 may mean kidney failure Rang es recommended by the National Kidney Foundation, http://nkdep.ni h.gov Comprehensive Metabolic [id number] 12:12:02 Test Item Value Reference Range Interpretation Comments Sodium Level (test 138.0 mmol/L 135.0-145.0 code = Sodium Level) Potassium Level 4.2 mmol/L 3.5-5.1 (test code = Potassium Level) Chloride Level (test 101 mmol/L 98-105 code = Chloride Level) CO2 (test code = 21 mmol/L 22-29 L CO2) Anion Gap (test code 16 mmol/L 7-16 = Anion Gap) BUN (test code = 21.60 mg/dL 8.00-23.00 BUN) Creatinine Level 1.40 mg/dL 0.70-1.20 H (test code = Creatinine Level) BUN/Creat Ratio 15 N (test code = BUN/Creat Ratio) Glucose Level (test 139 mg/dL 70-115 H code = Glucose Level) Calcium Level (test 9.2 mg/dL 8.3-10.5 code = Calcium Level) Alk Phos (test code 73 U/L 40-129 = Alk Phos) Bilirubin Total 0.6 mg/dL 0.1-0.9 (test code = Bilirubin Total) Albumin Level (test 4.1 g/dL 3.5-5.2 code = Albumin Level) Protein Total (test 6.7 g/dL 6.4-8.3 code = Protein Total) ALT (test code = 18 U/L 1-41 ALT) AST (test code = 25 U/L 1-40 AST) Globulin (test code 2.6 g/dL 2.9-3.1 L = Globulin) A/G Ratio (test code 1.6 ratio N = A/G Ratio) eGFR AA (test code = 60 mL/min/1.73 N eGFR (estimated eGFR AA) m2 Glomerular Filtration Rate ) is an estimated va lue, calculated from the patient's serum creatinine usin g the MDRD equation. It is NOT the patient 's actual GFR. The eGFR provides a more clinically usef ul measure of kidn ey disease than se rum creatinine alone.This calculation jeremi es sex and race in to account, if the information is provided. If th e race is not provided, and t he patient is -Peyton n, multiply by 1.2 12. If sex is not provided, and t he patient is fema le, multiply by 0.7 42. Results for pat ients <18 years of ag e have not been validated by [facility] MDRD study and should be interpreted wit h caution. eGFR R esult Interpretation: eGFR > or = 60 is in the Normal RangeeGF R < 60 may mean kid kyle diseaseeGFR < 1 5 may mean kidney failure Rang es recommended by the National Kidney Foundation, http://nkdep.ni h.gov eGFR Non-AA (test 49.82 N eGFR (french mated code = eGFR Non-AA) mL/min/1.73 m2 Glomer ular Filtration Rate ) is an estimated va lue, calculated from the patient's serum creatinine usin g the MDRD equation. It is NOT the patient 's actual GFR. The eGFR provides a more clinically usef ul measure of kidn ey disease than se rum creatinine alone.This calculation jeremi es sex and race in to account, if the information is provided. If th e race is not provided, and t he patient is -Peyton n, multiply by 1.2 12. If sex is not provided, and t he patient is fema le, multiply by 0.7 42. Results for pat ients <18 years of ag e have not been validated by [facility] MDRD study and should be interpreted wit h caution. eGFR R esult Interpretation: eGFR > or = 60 is in the Normal RangeeGF R < 60 may mean kid kyle diseaseeGFR < 1 5 may mean kidney failure Rang es recommended by the National Kidney Foundation, http://nkdep.ni h.gov Urine Drug [id number] 12:01:40 Test Item Value Reference Range Interpretation Comments Amphetamine Screen Ur Negative Negative (test code = Amphetamine Screen Ur) Barbiturate Screen Ur Negative Negative (test code = Barbiturate Screen Ur) Benzodiazepines Ur (test Negative Negative code = Benzodiazepines Ur) Cocaine Screen Ur (test Negative Negative code = Cocaine Screen Ur) U Methadone Scr (test Negative Negative code = U Methadone Scr) Opiate Screen Ur (test Negative Negative code = Opiate Screen Ur) U PCP Scrn (test code = Negative Negative U PCP Scrn) Cannabinoid Screen Ur Negative Negative (test code = Cannabinoid Screen Ur) U TCA (test code = U Negative Negative The res ults of all TCA) drug screen adan ts are only preliminar y. Clinical consideration a nd professional ju dgment should be appli ed to any drug of abu se test result, particularly wh en preliminary pos itive results are obt ained. Please order a separate confir matory test if desired . Complete Blood Count with [id number] 11:38:14 Test Item Value Reference Range Interpretation Comments WBC (test code = WBC) 6.9 x10 4.4-10.5 RBC (test code = RBC) 5.03 x10 4.10-5.70 Hgb (test code = Hgb) 15.0 g/dL 13.4-17.4 MCV (test code = MCV) 88.70 fL 80.00-100.00 Hct (test code = Hct) 44.6 % 38.7-52.0 MCHC (test code = 33.60 g/dL 32.00-37.50 MCHC) RDW CV (test code = 12.7 % 11.5-14.5 RDW CV) MCH (test code = MCH) 29.8 pg 27.0-32.5 Platelets (test code = 187.0 x10 140.0-440.0 Platelets) MPV (test code = MPV) 12.1 fL N Slide Review (test Auto Auto Result cr eated by code = Slide Review) GL_SJM_ SLIDE_REV_AUTO nRBC (test code = 0 N nRBC) NRBC Abs (test code = 0.00 x10 N NRBC Abs) IPF (test code = IPF) 0 % N Automated [id number] 11:38:14 Test Item Value Reference Range Interpretation Comments Neutro Auto (test code = Neutro 76.4 % 36.0-70.0 H Auto) Lymph Auto (test code = Lymph Auto) 15.8 % 12.0-44.0 Milam Auto (test code = Milam Auto) 6.7 % 0.0-11.0 Eos, Auto (test code = Eos, Auto) 0.3 % 0.0-7.0 Basophil Auto (test code = Basophil 0.4 % 0.0-2.0 Auto) Neutro Absolute (test code = Neutro 5.3 x10 1.6-7.4 Absolute) Lymph Absolute (test code = Lymph 1.09 x10 .50-4.60 Absolute) Milam Absolute (test code = Milam .46 x10 .00-1.20 Absolute) Eos Absolute (test code = Eos 0.02 x10 0.00-0.74 Absolute) Baso Absolute (test code = Baso 0.03 x10 0.00-0.21 Absolute) IG [id number] 11:38:14 Test Item Value Reference Range Interpretation Comments IG (test code = IG) 0.4 % 0.0-5.0 IG Abs (test code = IG Abs) 0 x10 N Urinalysis with Culture, if [id number] 11:37:19 Test Item Value Reference Range Interpretation Comments UA Color (test code = STRAW Yellow UA Color) UA Appear (test code = CLEAR Clear UA Appear) UA pH (test code = UA 5 N pH) UA Spec Grav (test code 1.008 1.001-1.035 = UA Spec Grav) UA Glucose (test code = NEG Negative UA Glucose) UA Bili (test code = UA NEG Negative Bili) UA Ketones (test code = 5 mg/dL Negative UA Ketones) UA Blood (test code = 25 cells/mcL Negative A UA Blood) UA Protein (test code = 500 mg/dL Negative A UA Protein) UA Urobilinogen (test 0.2 mg/dL N code = UA Urobilinogen) UA Nitrite (test code = NEG Negative UA Nitrite) UA Leuk Est (test code NEG Negative = UA Leuk Est) UA Micro Ind? (test Indicated Not Indicated A Result created by code = UA Micro Ind?) rule GL_SJM_UA_MICRO _IN D POC [id number] 11:07:06 Test Item Value Reference Range Interpretation Comments Glucose POC (test 123 mg/dL 70-115 H If you con bilingual counter sales retail your code = Glucose POC) patient critically ill, the Sj-Accu Check Infrom II meter should not be used for Glucose determination. Draw a venous Glucose and send to the main Lab for analysis.
[2022-05-14] MEDS ORDERED: NA CHLORIDE 0.9% 1,000 ML ONE (16:29)
[2022-05-14 17:12] LABS: Absolute Lymphocytes (CBC) 1.5 K/uL (0.7-4.9); Hematocrit 39.6 % (39.6-49.0); Lymphocytes % 23.6 % (15.3-44.8); MCV 83.3 fL (80-100); MPV 9.2 fL (7.6-11.3); RBC Red Blood Cell Count 4.75 M/uL (4.33-5.43)
--- NOTE | 2022-05-14 17:12 | RAD REPORT ---
EXAM DESCRIPTION: CT - Head C Spine Cap Wo Con - 05/14/2022 4:53 pm CLINICAL HISTORY: Trauma, head and neck injury. Chest, abdomen and pelvis pain. got dizzy while standing and fell COMPARISON: No comparisons TECHNIQUE: CT head without contrast. CT cervical spine without contrast with coronal and sagittal reformatted images. CT chest, abdomen and pelvis with coronal and sagittal reformatted images of the spine. All CT scans are performed using dose optimization technique as appropriate and may include automated exposure control or mA/KV adjustment according to patient size. FINDINGS: CT HEAD WITHOUT CONTRAST: No intracranial hemorrhage, hydrocephalus or extra-axial fluid collection. No acute large vascular te rritory infarct. Cerebral atrophy. Mild chronic small vessel ischemic changes. Intracranial atheroscl erosis. The paranasal sinuses and mastoids are clear. The calvarium is intact. Numerous dental caries. CT CERVICAL SPINE WITHOUT CONTRAST: No fracture or subluxation. The prevertebral soft tissues are normal in thickness.Multilevel degenerative changes are present in the spine. 2 millimeters anterolisthesis of C3 on C4 and C4 on C5. Varying degrees of neural foramina l narrowing. CT CHEST, ABDOMEN, PELVIS: Thorax: Chest Wall: No abnormal mass Lungs: No acute abnormality. Elevated left hemidiaphragm. Pleura: No effusions or pneumothorax. Colette/Mediastinum: No lymphadenopathy. Aorta/Pulmonary Arteries: Unremarkable Heart: Normal size. Multi-vessel coronary artery disease. Aortic valvular and mitral annular calcific ations Abdomen/Pelvis: Liver: Nodular liver configuration. Biliary: No biliary ductal dilatation. Stomach: No significant focal abnormality. Duodenum: No significant focal abnormality. Pancreas: No significant abnormality. Spleen: No significant abnormality. Adrenal: No suspicious lesions. Kidney/ureter: No hydronephrosis. No renal calculi. Too small to characterize and/or benign appearing renal lesions are noted. Renal cortical thinning bilaterally. Retroperitoneum: No retroperitoneal adenopathy. Vascular: No aneurysm. Atherosclerosis. Bowel: Partial colectomy. Small bowel containing ventral hernia without obstruction or complicating f eature.. Peritoneum: No ascites or free air. Bladder: Grossly unremarkable. Reproductive: No adnexal masses. Bones: No acute fracture. Other: n/a IMPRESSION: 1. No acute intracranial abnormality. 2. No acute fracture traumatic malalignment of the cervical spine. 3. No evidence of significant acute trauma to the chest, abdomen, or pelvis.
--- NOTE | 2022-05-14 17:16 | RAD REPORT ---
EXAM DESCRIPTION: RAD - Chest Single View - 05/14/2022 4:59 pm CLINICAL HISTORY: MD discretion COMPARISON: Chest Single View dated 06/25/2019; Chest Single View dated 06/22/2019; Abdomen 1 View ( KUB) dated 06/19/2019; Abdomen Acute Series dated 05/17/2019 FINDINGS: Lines: None. Lungs: No evidence of edema or pneumonia. Elevated left hemidiaphragm. Pleural: No significant pleural effusions or pneumothorax. Cardiac: The heart size is within normal limits. Mediastinum: Within normal limits. Bones: No acute fractures. Other: None IMPRESSION: No acute cardiopulmonary disease.
[2022-05-14 17:22] LABS: Potassium 4.2 mmol/L (3.5-5.1); Troponin High Sensitivity 26.8 pg/mL (<58.9)
[2022-05-14 17:53] LABS: Urine Blood 1+ (Negative); Urine Glucose Trace (Negative); Urine Protein 3+ (Negative); Urine Specific Gravity 1.015 (1.005-1.030)
--- NOTE | 2022-05-14 18:18 | ER ---
Nurse's Notes [facility] Name: Arun Mccall Age: 76 yrs Sex: Male : 1945 Arrival Date: 05/14/2022 Time: 15:05 Bed 6 Private MD: Diagnosis: Essential (primary) hypertension;Fall on same level, unspecified;Unspecified kidney failure-CHRONIC;Syncope Near;Type 1 diabetes mellitus with hyperglycemia Presentation: 05/14 15:05 Chief complaint: EMS states: "fell trying to answer the doorbell to help a dominos aa5 vp delivery lady". Pt states he had just woken up from a nap and was still "groggy", pt states "to tell you the truth I get dizzy when I get up for a few minutes and it's been going on a while". Pt also c/o floaters to right eye "for a while". Pt reports back pain from fall today. Negative LOC, negative head injury. 15:05 Coronavirus screen: At this time, the client does not indicate any symptoms associated aa5 with coronavirus-19. Ebola Screen: Patient denies travel to an Ebola-affected area in the 21 days before illness onset. Initial Sepsis Screen: Does the patient meet any 2 criteria? No. Patient's initial sepsis screen is negative. Does the patient have a suspected source of infection? No. Patient's initial sepsis screen is negative. Risk Assessment: Do you want to hurt yourself or someone else? Patient reports no desire to harm self or others. Onset of symptoms was May 14, 2022. 15:05 Acuity: CHAYITO 3 aa5 15:05 Method Of Arrival: EMS: [facility] aa5 15:05 Care prior to arrival: Glucose check: 249. aa5 Historical: - Allergies: 15:16 fenofibrate nanocrystallized; aa5 15:16 insulin degludec; aa5 - PMHx: 15:16 Anxiety; Diabetes - IDDM; Hypertension; aa5 - PSHx: 15:16 Colon sx; aa5 - Immunization history:: Adult Immunizations unknown. - Social history:: Smoking status: Patient/guardian denies using tobacco. Screenin:20 Abuse screen: Denies threats or abuse. Denies injuries from another. Nutritional tw5 screening: No deficits noted. Tuberculosis screening: No symptoms or risk factors identified. Fall Risk None identified. Assessment: 15:10 General: Appears in no apparent distress. comfortable, Behavior is calm, cooperative, mb9 appropriate for age. Pain: Complains of pain in back Pain currently is 8 out of 10 on a pain scale. Quality of pain is described as aching. 15:10 Neuro: Level of Consciousness is awake, alert, obeys commands, Oriented to person, mb9 place, time, situation, Appropriate for age Speech is normal. Neuro: Reports seeing floaters in his vision. Neuro: Reports dizziness, since a few weeks ago. Cardiovascular: Heart tones S1 S2 present Rhythm is regular. Respiratory: Airway is patent Respiratory effort is even, unlabored, Respiratory pattern is regular, symmetrical. Respiratory: Breath sounds are clear bilaterally. GI: Abdomen is round Bowel sounds present X 4 quads. Abd is soft and non tender Reports nausea, loss of appetite. : No signs and/or symptoms were reported regarding the genitourinary system. EENT: No signs and/or symptoms were reported regarding the EENT system. Derm: Skin is pink, warm \\T\\ dry. pt has sores with scabs on his upper and lower extremities bilaterally. Musculoskeletal: Range of motion: intact in all extremities. 16:30 Pain: Complains of pain in back. Neuro: Level of Consciousness is awake, alert, obeys mb9 commands, Oriented to person, place, time, situation, Appropriate for age. Cardiovascular: Heart tones S1 S2 present Rhythm is regular. Respiratory: Airway is patent Respiratory effort is even, unlabored, Respiratory pattern is regular, symmetrical. Derm: Skin is pink, warm \\T\\ dry. 16:30 GI: Reports nausea. mb9 17:30 Pain: Complains of pain in back. Neuro: Level of Consciousness is awake, alert, obeys mb9 commands, Oriented to person, place, time, situation, Appropriate for age. Cardiovascular: Heart tones S1 S2 present. Respiratory: Airway is patent Respiratory effort is even, unlabored, Respiratory pattern is regular, symmetrical. GI: Reports nausea. Derm: Skin is pink, warm \\T\\ dry. 18:36 Pain: Complains of pain in back. Neuro: Level of Consciousness is awake, alert, obeys mb9 commands, Oriented to person, place, time, situation, Appropriate for age. Cardiovascular: Heart tones S1 S2 present. Respiratory: Airway is patent Respiratory effort is even, unlabored, Respiratory pattern is regular, symmetrical. GI: Abdomen is round Abd is soft and non tender Reports nausea. Derm: Skin is pink, warm \\T\\ dry. 19:19 Reassessment: Patient appears in no apparent distress at this time. Patient and/or jb4 family updated on plan of care and expected duration. Pain level reassessed. Patient is alert, oriented x 3, equal unlabored respirations, skin warm/dry/pink. Vital Signs: 15:05 BP 155 / 78; Pulse 86; Resp 18 S; Temp 98.3(TE); Pulse Ox 96% on R/A; Weight 99.34 kg aa5 (M); Height 5 ft. 10 in. (177.80 cm) (R); 15:30 BP 163 / 72; Pulse 78; Resp 16; Pulse Ox 97% on R/A; mb9 16:30 BP 172 / 97; Pulse 80; Resp 16; Pulse Ox 98% on R/A; mb9 17:30 BP 190 / 131; Pulse 101; Resp 18; Pulse Ox 96% on R/A; mb9 18:36 BP 172 / 115; Pulse 94; Resp 18; Pulse Ox 100% on R/A; mb9 15:05 Body Mass Index 31.42 (99.34 kg, 177.80 cm) aa5 ED Course: 15:05 Patient arrived in ED. eb 15:05 Arm band placed on Patient placed in an exam room, on a stretcher. aa5 15:21 Triage completed. aa5 15:50 Sumeet Moody MD is Attending Physician. tom 15:51 Noy Hinojosa RN is Primary Nurse. mb9 16:00 Inserted saline lock: 20 gauge in left forearm, using aseptic technique. iw 16:55 Head C Spine Cap Wo Con In Process Unspecified. EDMS 17:00 XRAY Chest (1 view) In Process Unspecified. EDMS 18:15 Darren Muñoz MD is Hospitalizing Provider. tom 19:11 SARS RAPID Sent. tw5 19:11 Urine Culture Sent. tw5 20:20 Placed in gown. Client placed on continuous cardiac and pulse oximetry monitoring. NIBP tw5 monitoring applied. Door closed. 20:20 No provider procedures requiring assistance completed. Patient admitted, IV remains in tw5 place. Administered Medications: 16:15 Drug: NS 0.9% 1000 ml Route: IV; Rate: 125 ml/hr; Site: left forearm; iw 18:40 Drug: Norvasc (amlodipine) 10 mg Route: PO; mb9 19:18 Follow up: Response: No adverse reaction mb9 18:40 Drug: Zofran (Ondansetron) 4 mg Route: IVP; Site: left forearm; mb9 19:18 Follow up: Response: No adverse reaction 9 Outcome: 18:17 Decision to Hospitalize by Provider. tom 20:20 Admitted to Med/surg Report called to Report called to sebastian. tw5 20:20 Condition: stable 20:20 Instructed on the need for admit. 20:37 Patient left the ED. tw5 Signatures: Dispatcher [employer] EDMS Sumeet Moody MD MD cha Williams, Irene, RN RN iw Nirali Curtis RN RN aa5 Duke Liao RN RN [email or web address] Rand Stoddard Tiffany tw5 Noy Hinojosa RN RN mb9 Corrections: (The following items were deleted from the chart) 18:35 15:10 GI: Abdomen is round mb9 mb9 18:35 16:30 Pain: Complains of pain in back mb9 mb9
--- NOTE | 2022-05-14 18:18 | EDPHYS ---
Physician Documentation [facility] Name: Arun Mccall Age: 76 yrs Sex: Male : 1945 Arrival Date: 05/14/2022 Time: 15:05 Bed 6 Private MD: ED Physician Sumeet Moody HPI: 05/14 18:08 This 76 yrs old Male presents to ER via EMS with complaints of Fall Injury. tom 18:08 Details of fall: The patient fell from an upright position, while walking. Onset: The tom symptoms/episode began/occurred just prior to arrival. Associated injuries: The patient sustained upper back injury, injury to the low back. Severity of symptoms: At their worst the symptoms were mild, in the emergency department the symptoms are unchanged. Historical: - Allergies: 15:16 fenofibrate nanocrystallized; aa5 15:16 insulin degludec; aa5 - PMHx: 15:16 Anxiety; Diabetes - IDDM; Hypertension; aa5 - PSHx: 15:16 Colon sx; aa5 - Immunization history:: Adult Immunizations unknown. - Social history:: Smoking status: Patient/guardian denies using tobacco. ROS: 18:09 Constitutional: Negative for fever, chills, and weight loss, ENT: Negative for injury, tom pain, and discharge, Neck: Negative for injury, pain, and swelling, Cardiovascular: Negative for chest pain, palpitations, and edema, Respiratory: Negative for shortness of breath, cough, wheezing, and pleuritic chest pain, Abdomen/GI: Negative for abdominal pain, nausea, vomiting, diarrhea, and constipation, Back: Negative for injury and pain, : Negative for injury, bleeding, discharge, and swelling, MS/Extremity: Negative for injury and deformity, Skin: Negative for injury, rash, and discoloration, Psych: Negative for depression, anxiety, suicide ideation, homicidal ideation, and hallucinations, Allergy/Immunology: Negative for hives, rash, and allergies, Endocrine: Negative for neck swelling, polydipsia, polyuria, polyphagia, and marked weight changes, Hematologic/Lymphatic: Negative for swollen nodes, abnormal bleeding, and unusual bruising. 18:09 Eyes: Positive for visual disturbance, of the iris of right eye, 8 MONTHS. 18:09 Neuro: Positive for near syncope, weakness. Exam: 18:09 Constitutional: This is a well developed, well nourished patient who is awake, alert, tom and in no acute distress. Head/Face: Normocephalic, atraumatic. ENT: Nares patent. No nasal discharge, no septal abnormalities noted. Tympanic membranes are normal and external auditory canals are clear. Oropharynx with no redness, swelling, or masses, exudates, or evidence of obstruction, uvula midline. Mucous membranes moist. Neck: Trachea midline, no thyromegaly or masses palpated, and no cervical lymphadenopathy. Supple, full range of motion without nuchal rigidity, or vertebral point tenderness. No Meningismus. Chest/axilla: Normal chest wall appearance and motion. Nontender with no deformity. No lesions are appreciated. Cardiovascular: Regular rate and rhythm with a normal S1 and S2. No gallops, murmurs, or rubs. Normal PMI, no JVD. No pulse deficits. Respiratory: Lungs have equal breath sounds bilaterally, clear to auscultation and percussion. No rales, rhonchi or wheezes noted. No increased work of breathing, no retractions or nasal flaring. Abdomen/GI: Soft, non-tender, with normal bowel sounds. No distension or tympany. No guarding or rebound. No evidence of tenderness throughout. Back: No spinal tenderness. No costovertebral tenderness. Full range of motion. Male : Normal genitalia with no discharge or lesions. Skin: Warm, dry with normal turgor. Normal color with no rashes, no lesions, and no evidence of cellulitis. Psych: Awake, alert, with orientation to person, place and time. Behavior, mood, and affect are within normal limits. 18:09 ECG was reviewed by the Attending Physician. Vital Signs: 15:05 BP 155 / 78; Pulse 86; Resp 18 S; Temp 98.3(TE); Pulse Ox 96% on R/A; Weight 99.34 kg aa5 (M); Height 5 ft. 10 in. (177.80 cm) (R); 15:30 BP 163 / 72; Pulse 78; Resp 16; Pulse Ox 97% on R/A; mb9 16:30 BP 172 / 97; Pulse 80; Resp 16; Pulse Ox 98% on R/A; mb9 17:30 BP 190 / 131; Pulse 101; Resp 18; Pulse Ox 96% on R/A; mb9 18:36 BP 172 / 115; Pulse 94; Resp 18; Pulse Ox 100% on R/A; mb9 15:05 Body Mass Index 31.42 (99.34 kg, 177.80 cm) aa5 MDM: 15:50 Patient medically screened. tom 18:12 Differential diagnosis: abrasion, closed head injury, contusion, fracture, multiple tom trauma, sprain, strain, cardiac arrhythmia, cerebrovascular accident, GI bleed, vasovagal episode. Data reviewed: vital signs, nurses notes, EMS record, lab test result(s), EKG, radiologic studies, CT scan, plain films. Data interpreted: school lunch monitor: rate is 86 beats/min, rhythm is regular, Pulse oximetry: on room air is 96 %. Test interpretation: by ED physician or midlevel provider: ECG, plain radiologic studies. Counseling: I had a detailed discussion with the patient and/or guardian regarding: the historical points, exam findings, and any diagnostic results supporting the discharge/admit diagnosis, lab results, radiology results, the need for further work-up and treatment in the hospital. 05/14 15:32 Order name: Glucose, Ancillary Testing; Complete Time: 16:04 [facility] 05/14 15:48 Order name: Basic Metabolic Panel; Complete Time: 17:41 05/14 15:48 Order name: CBC with Diff; Complete Time: 17:41 05/14 15:48 Order name: Troponin HS; Complete Time: 17:41 05/14 15:51 Order name: Urine Culture [facility] 05/14 17:17 Order name: Lipase; Complete Time: 17:41 [facility] 05/14 17:53 Order name: Urine Dipstick-Ancillary; Complete Time: 17:59 [facility] 05/14 18:08 Order name: SARS RAPID [facility] 05/14 19:01 Order name: Urinalysis [facility] 05/14 19:01 Order name: Basic Metabolic Panel [facility] 05/14 19:01 Order name: Basic Metabolic Panel [facility] 05/14 19:01 Order name: CBC with Automated Diff [facility] 05/14 19:01 Order name: CBC with Automated Diff [facility] 05/14 15:48 Order name: XRAY Chest (1 view); Complete Time: 17:41 05/14 15:48 Order name: EKG; Complete Time: 15:48 05/14 15:48 Order name: Cardiac monitoring; Complete Time: 16:58 iw 05/14 15:48 Order name: EKG - Nurse/Tech; Complete Time: 16:58 iw 05/14 15:53 Order name: Head C Spine Cap Wo Con; Complete Time: 17:41 [facility] 05/14 19:01 Order name: Physical Therapy Consult [facility] 05/14 19:01 Order name: Renal [facility] 05/14 19:01 Order name: Echo with Doppler [facility] 05/14 19:01 Order name: ERT ORTHOSTATIC V/S [facility] 05/14 19:01 Order name: Magnesium [facility] 05/14 19:01 Order name: Magnesium [facility]MS 05/14 19:01 Order name: Phosphorus EDMS 05/14 19:01 Order name: Phosphorus EDMS 05/14 15:48 Order name: IV Saline Lock; Complete Time: 16:58 iw 05/14 15:48 Order name: Labs collected and sent; Complete Time: 16:58 iw 05/14 15:48 Order name: O2 Per Protocol; Complete Time: 16:58 iw 05/14 15:48 Order name: O2 Sat Monitoring; Complete Time: 16:58 iw 05/14 15:51 Order name: Urine Dipstick-Ancillary (obtain specimen); Complete Time: 17:52 [facility] EC:09 Rate is 79 beats/min. Rhythm is regular. QRS Cannon is Normal. LA interval is normal. QT tom interval is normal. No Q waves. T waves are Normal. No ST changes noted. Clinical impression: NSR w/ Non-specific ST/T Changes and No evidence of ischemia. Interpreted by me. Reviewed by me. Administered Medications: 16:15 Drug: NS 0.9% 1000 ml Route: IV; Rate: 125 ml/hr; Site: left forearm; iw 18:40 Drug: Norvasc (amlodipine) 10 mg Route: PO; mb9 19:18 Follow up: Response: No adverse reaction mb9 18:40 Drug: Zofran (Ondansetron) 4 mg Route: IVP; Site: left forearm; mb9 19:18 Follow up: Response: No adverse reaction mb9 Disposition Summary: 05/14/22 18:17 Hospitalization Ordered Hospitalization Status: Observation tom Provider: Darren Muñoz cha Location: Telemetry/MedSurg (observation) tom Condition: Fair tom Problem: new tom Symptoms: have improved tom Bed/Room Type: Standard tom Room Assignment: [id number](05/14/22 20:03) cg Diagnosis - Essential (primary) hypertension tom - Fall on same level, unspecified tom - Unspecified kidney failure - CHRONIC tom - Syncope Near tom - Type 1 diabetes mellitus with hyperglycemia tom Forms: - Medication Reconciliation Form tom - SBAR form tom Signatures: Dispatcher [employer] EDMS Sumeet Moody MD MD tom Robert Fregoso PA PA jmm Williams, Irene RN RN Nirali Curtis RN RN aa5 Bobbi Hope RN RN Noy Bhatia RN RN mb9 Corrections: (The following items were deleted from the chart) 17:18 15:52 LIPASE+C.LAB.BRZ ordered. [facility] EDMS 20:03 18:17 tom cg
[2022-05-14] MEDS ORDERED: ONDANSETRON 4 MG/2 ML VIAL ONE (18:31)
[2022-05-14] MEDS ORDERED: AMLODIPINE 10 MG TAB ONE (18:31)
--- NOTE | 2022-05-14 19:00 | P.HP ---
Certification for Inpatient Patient admitted to: Observation With expected LOS: <2 Midnights Patient will require the following post-hospital care: None Practitioner: I am a practitioner with admitting privileges, knowledge of patient current condition, hospital course, and medical plan of care. Services: Services provided to patient in accordance with Admission requirements found in Title 42 Section 412.3 of the Code of Federal Regulations Patient History Date of Service: 05/14/22 Reason for admission: Pre-Syncope History of Present Illness: Mr. Arun Mccall is a pleasant 76 year old male who has a past medical history of type II diabetes mellitus, chronic kidney disease stage III, hypertension, and prior heavy tobacco use who presents to the [facility] Emergency Department for an episode of pre-syncope. He reports that, earlier today, he ordered pizza to be delivered to his apartment. When he went to the front door to obtain his pizza around 15:10, he had an episode where he felt like he was about to pass out, which resulted in him collapsing. He reports having mechanical falls in the past, but never one in a similar fashion to this one. He denies any obvious inciting or alleviating factors. He denies any recent changes in his medications. He denies any neurologic deficits, loss of consciousness, or head trauma. On review of systems, he denies any fevers, chills, headaches, dizziness, syncope, chest pain, palpitations, shortness of breath, wheezing, cough, abdominal pain, nausea/vomiting, diarrhea, constipation, hematochezia, melena, dysuria, hematuria, myalgia, or any other symptoms. He presented to the Emergency Department for further evaluation. Upon presentation, his vital signs were stable. His laboratory studies were notable for a creatinine of 2.03 (baseline ~1.3-1.6). EKG revealed sinus rhythm without STEMI criteria. Chest x-ray revealed, "No acute cardiopulmonary disease." CT head/cevical spine/chest/abdomen/pelvis revealed, "1. No acute intracranial abnormality. 2. No acute fracture traumatic malalignment of the cervical spine. 3. No evidence of significant acute trauma to the chest, abdomen, or pelvis." In the Emergency Department, he was given 1 L Normal Saline. He was admitted to the General Internal Medicine service for further evaluation. Allergies fenofibrate nanocrystallized [From Tricor] Allergy (Mild, Verified 05/17/19 08:35) Unknown insulin degludec [From Tresiba FlexTouch U-100] Adverse Reaction (Intermediate, Verified 05/17/19 08:35) Anaphylaxis Home medications list reviewed: No (He does not know his home meds. He will obtain list.) Home Medications: Metoprolol Tartrate [Lopressor*] 25 mg PO BID 01/07/15 Multivitamin [Multivitamins] 1 each PO DAILY 01/07/15 Aspirin [Lo-Dose Aspirin EC] 81 mg PO DAILY 05/17/19 Insulin Degludec [Tresiba] 14 units SQ BEDTIME 05/17/19 Insulin Degludec [Tresiba] 26 units SQ DAILY 05/17/19 - Past Medical/Surgical History -: Diabetes mellitus type 2 -: Hypertension -: Chronic kidney disease stage 3 -: colon surgery - Family History Father -: Heart disease - Social History Smoking Status: Former smoker Alcohol use: No CD- Drugs: No Review of Systems General: Weakness (generalized) Eyes: Unremarkable ENT: Unremarkable Respiratory: Unremarkable Cardiovascular: Unremarkable Gastrointestinal: Unremarkable Genitourinary: Unremarkable Musculoskeletal: Unremarkable Integumentary: Unremarkable Neurological: Other (pre-syncope) Physical Examination - Vital Signs Temperature: 98.3 F Blood Pressure: 155/78 Pulse: 86 Respirations: 18 Pulse Ox (%): 96 - Physical Exam General: Alert, In no apparent distress, Oriented x3 HEENT: Atraumatic, PERRLA, Mucous membr. moist/pink, EOMI, Sclerae nonicteric Neck: Supple, JVD not distended Respiratory: Clear to auscultation bilaterally, Normal air movement Cardiovascular: No edema, Regular rate/rhythm, Normal S1 S2, No gallops, No rubs, No murmurs Capillary refill: <2 Seconds Gastrointestinal: Normal bowel sounds, Soft and benign, Non-distended, No tenderness, No rebound, No guarding Musculoskeletal: No clubbing, No swelling Integumentary: No rashes Neurological: Normal speech, Cranial nerves 3-12 intact, Normal affect - Studies Laboratory Data (last 24 hrs) 05/14/22 16:44: WBC 6.20, Hgb 12.7 L, Hct 39.6, Plt Count 163 05/14/22 16:44: Sodium 134 L, Potassium 4.2, BUN 17, Creatinine 2.03 H, Glucose 203 H, Lipase 231 05/14/22 15:51: Lipase Cancelled Assessment and Plan - Plan # Generalized Weakness with Pre-Syncope Differential diagnoses include, but are not limited to, vasovagal syncope, orthostatic hypotension, cardiac etiology (i.e. arrhythmia, valvulopathy), and neurogenic etiologies. - Admit under observation status - Will initiate further evaluation as outlined below: - Orthostatic vital signs Telemetry - EKG, serial troponin - Transthoracic echocardiogram - CT head/cervical spine/chest/abdomen/pelvis = "1. No acute intracranial abnormality. 2. No acute fracture traumatic malalignment of the cervical spine. 3. No evidence of significant acute trauma to the chest, abdomen, or pelvis." - Consulted PT # KDIGO Stage I Acute Kidney Injury on Chronic Kidney Disease Stage III # Microscopic Hematuria - Creatinine = 2.3 (baseline creatinine ~1.3-1.6) - Urinalysis = 1+ blood, 3+ protein - S/P 1 L Normal Saline in ED - Monitor creatinine and urine output - If worsening, obtain renal ultrasound - Renally dose medications # Hypergylcemia in Type II Diabetes Mellitus - Ordered Hgb A1c - Correction scale insulin - Resume home medications once verified # Hypertension - Resume home medications once verified Darren Muñoz M.D. Discharge Plan: Home Plan to discharge in: 24 Hours - Advance Directives Does patient have a Living Will: No Does patient have a Durable POA for Healthcare: No - Code Status/Comfort Care Code Status Assessed: Yes Code Status: Full Code
[2022-05-14 19:15] LABS: SARS-CoV-2 Antigen Rapid Res Negative (Negative)
[2022-05-14] MEDS ORDERED: D50W 25 GM/50 ML SYRINGE IV PRN (20:07)
[2022-05-14] MEDS ORDERED: GLUCAGON 1 MG/VIAL IM PRN (20:07)
[2022-05-14] MEDS ORDERED: D10W 125 ML IV PRN (20:13)
[2022-05-14] MEDS: INSULIN -REGULAR HUMAN 50 UNIT/0.5 ML ML SQ SCH (21:00)
[2022-05-14 21:33] VITALS: O2SAT 96; BMI 32.0
[2022-05-14] MEDS: HEPARIN 5000 UNIT/ML 1 ML VIAL SQ SCH (22:13)
[2022-05-15 05:46] LABS: Absolute Lymphocytes (CBC) 1.6 K/uL (0.7-4.9); Hematocrit 38.1 % (39.6-49.0); Lymphocytes % 25.8 % (15.3-44.8); MCV 84.1 fL (80-100); MPV 9.2 fL (7.6-11.3); RBC Red Blood Cell Count 4.54 M/uL (4.33-5.43)
[2022-05-15 05:57] LABS: Magnesium 2.4 mg/dL (1.8-2.4); Potassium 4.2 mmol/L (3.5-5.1)
[2022-05-15] MEDS: INSULIN -REGULAR HUMAN 50 UNIT/0.5 ML ML SQ SCH ×4 (07:30→21:19)
[2022-05-15] MEDS: HEPARIN 5000 UNIT/ML 1 ML VIAL SQ SCH ×2 (08:20→21:19)
[2022-05-15] MEDS: NA CHLORIDE 0.9% 1,000 ML IV SCH (12:05)
--- NOTE | 2022-05-15 15:57 | P.PN ---
Date of Service: 05/15/22 Subjective Patient feeling better. Near syncopal work-up almost completed. Patient feeling better. He is having moments of forgetfulness per nursing staff. We will continue to monitor him closely. Physical Examination - Vital Signs Reviewed - Physical Exam General: Alert, In no apparent distress, Oriented x3 Respiratory: Clear to auscultation bilaterally, Normal air movement Cardiovascular: No edema, Regular rate/rhythm, Normal S1 S2, No gallops, No rubs, No murmurs Gastrointestinal: Normal bowel sounds, Soft and benign, Non-distended, No tenderness, No rebound, No guarding Musculoskeletal: No clubbing, No swelling Neurological: No focal deficits; Mini-Mental status exam with 27/30 points Assessment and Plan -Assessment 1. Generalized Weakness with Pre-Syncope 2. KDIGO Stage I Acute Kidney Injury on Chronic Kidney Disease Stage III 3. Microscopic Hematuria 4. Hypergylcemia in Type II Diabetes Mellitus 5. Hypertension - Plan -Echocardiogram pending -Gentle hydration -Strict blood pressure control
--- NOTE | 2022-05-15 16:09 | EKG ---
Test Date: 2022-05-14 Test Time: 16:04:28 Implementation Coordinator: OLVIN MEASUREMENT RESULTS: Intervals: Rate: 79 NV: 166 QRSD: 116 QT: 430 QTc: 493 [place]: P: 23 NV: 166 QRS: -30 T: -1 INTERPRETIVE STATEMENTS: Normal sinus rhythm Left axis deviation Right bundle branch block Abnormal ECG Compared to ECG 05/14/2022 16:03:26 Left-axis deviation now present Right bundle-branch block now present Incomplete right bundle-branch block no longer present ST (T wave) deviation no longer present Electronically Signed On 05-15-22 16:07:46 CDT by Luis Armando Atkinson
--- NOTE | 2022-05-15 16:10 | EKG ---
Test Date: 2022-05-14 Test Time: 16:03:26 Deicer Repairer: OLVIN MEASUREMENT RESULTS: Intervals: Rate: 77 [place]: 162 QRSD: 106 QT: 436 QTc: 493 [place]: P: 19 [place]: 162 QRS: -29 T: 5 INTERPRETIVE STATEMENTS: Normal sinus rhythm Incomplete right bundle branch block Junctional ST depression, probably normal Borderline ECG Compared to ECG 06/25/2019 19:45:18 Incomplete right bundle-branch block now present ST (T wave) deviation now present Left-axis deviation no longer present Right bundle-branch block no longer present Electronically Signed On 05-15-22 16:07:48 CDT by Luis Armando Atkinson
[2022-05-15] MEDS: ACETAMINOPHEN 500 MG TAB PO PRN (18:19)
[2022-05-16] MEDS: NA CHLORIDE 0.9% 1,000 ML IV SCH ×2 (02:24→07:54)
[2022-05-16] MEDS: INSULIN -REGULAR HUMAN 50 UNIT/0.5 ML ML SQ SCH ×3 (07:30→17:19)
[2022-05-16] MEDS: HEPARIN 5000 UNIT/ML 1 ML VIAL SQ SCH (08:00)
--- NOTE | 2022-05-16 08:15 | ECHO ---
HEIGHT: 5 ft 10 in WEIGHT: 223 lb 0 oz DATE OF STUDY: 05/15/[address]: Darren Muñoz MD 2-DIMENSIONAL: YES M.MODE: YES DOPPLER: YES COLOR FLOW: YES TDS: PORTABLE: YES DEFINITY: BUBBLE STUDY: DIAGNOSIS: PRE-SYNCOPE CARDIAC HISTORY: CATHERIZATION: SURGERY: PROSTHETIC VALVE: PACEMAKER: MEASUREMENTS (cm) DIASTOLIC (NORMALS) SYSTOLIC (NORMALS) IVSd 1.0 (0.6-1.2) LA Diam 4.5 (1.9-4.0) LVEF 63% LVIDd 4.0 (3.5-5.7) LVIDs 2.6 (2.0-3.5) %FS 34% LVPWd 1.1 (0.6-1.2) Ao Diam 3.2 (2.0-3.7) 2 DIMENSIONAL ASSESSMENT: RIGHT ATRIUM: NORMAL LEFT ATRIUM: ENLARGED RIGHT VENTRICLE: NORMAL LEFT VENTRICLE: NORMAL TRICUSPID VALVE: MILD TRICUSPID REGURGITATION MITRAL VALVE: NORMAL PULMONIC VALVE: NORMAL AORTIC VALVE: AORTIC VALVE SCLEROSIS PERICARDIAL EFFUSION: NONE AORTIC ROOT: NORMAL LEFT VENTRICULAR WALL MOTION: NORMAL DOPPLER/COLOR FLOW: SEE BELOW COMMENTS: NORMAL LEFT VENTRICULAR EJECTION FRACTION 60-65%. NORMAL WALL MOTION. AORTIC VALVE SCLEROSIS, NO AORTIC STENOSIS. MILD TRICUSPID REGURGITATION. TECHNOLOGIST: BAUTISTA ARANA
[2022-05-16] MEDS: ACETAMINOPHEN 500 MG TAB PO PRN (11:49)
[2022-05-16 12:54] VITALS: BP 150/77; TEMP 97.5
== END 2022-05-16 17:59 | disposition home health service (06) ==
LOC: ER 15:04 → ERHOLD 19:10 → 4TH 20:13
PROVIDERS: ADMIT Internal Medicine; ATTEND Hospitalist
DX: R55 Syncope and collapse (principal); I12.9 Hypertensive chronic kidney disease with stage 1 through stage 4 chronic kidney disease, or unspecified chronic kidney disease; E11.22 Type 2 diabetes mellitus with diabetic chronic kidney disease; E11.65 Type 2 diabetes mellitus with hyperglycemia; N18.30 Chronic kidney disease, stage 3 unspecified; Z88.8 Allergy status to other drugs, medicaments and biological substances; Z87.891 Personal history of nicotine dependence; Z82.49 Family history of ischemic heart disease and other diseases of the circulatory system; N17.9 Acute kidney failure, unspecified; R31.0 Gross hematuria
CPT/HCPCS: 36415; 70450; 71045; 71250; 72125; 80048; 81003; 82947; 83036; 83690; 83735; 84100; 84484; 85025; 87086; 87088; 87811; 93005; 93306; 96374; 97116; 97161; 99285; G0378; J1644; J1815; J2405; J7030

== ENCOUNTER 2022-09-04 06:16 | Emergency (ER) | payer OTHER ==
--- OUTSIDE RECORDS SUMMARY | 2022-09-04 06:20 | XMS REPORT | Continuity of Care Document ---
:1945 Author Organization [facility] t Address [address] [place] [address] Dr. [address]. [address] [place] [address] Care Team Providers Name Role Phone Miller_S_AH Attending Clinician Unavailable Ajibade_O_AH Attending Clinician Unavailable Ige-Odunfernando_J_AH Attending Clinician Unavailable Ivan Contreras Attending Clinician Unavailable Ivan Contreras Attending Clinician Unavailable Miller_S_AH Admitting Clinician Unavailable Ajibade_O_AH Admitting Clinician Unavailable Ige-Odunfernando_J_AH Admitting Clinician Unavailable Ivan Contreras Admitting Clinician Unavailable Payers Payer Name Policy Type Policy Number Effective Date Expiration Date S frederick [facility] [place] - [id number] 1859-01-01 [employer] 00:00:00 (MEDICARE REPLACEMENT/ADVANT AGE - HMO) Problems Condition Condition Condition Status Onset Resolution Last Treating Co mments Source Name Details Category Date Date Treatment Clinician Date Senile Senile Problem Active [facility] purpura Purpura 10-27 Family 00:00: Practic [...] Hyperlipid Problem Active [facility] emia 2- Family 00:00: Practic 00 e Morbid Morbid [...] Date Date Clinician No Known Drug Active [facility] Drug Active [facility] Social History Smoking Status Start Date Stop Date Source Former [facility] Medications Ordered Filled Start Stop Current Ordering Indication Dosage Frequency Signature Comments Components Source Medication Medication Date Date Medication? Clinician (SIG) Name Name Asprin Ec Asprin Ec No 1 Q1D Asprin Ec [facility] Low Dose 81 Low Dose 81 Low Dose Family mg mg 81 mg Practic tablet,juan tablet,juan tablet,del e yed release yed release ayed Take 1 Take 1 release tablet tablet Take 1 every day every day tablet by oral by oral every day route. route. by oral route. hydroxyzine hydroxyzine No 2 Q12H hydroxyzin [facility] HCl 25 mg HCl 25 mg [...] night. metoprolol metoprolol No 1 BID metoprolol [facility] tartrate 50 tartrate 50 tartrate Family [...] Comments Source Height 2020-10-27 00:00:00 70 [in_i] [facility] BMI (Body Mass 2020-10-27 00:00:00 37.3 kg/m2 [facility] Family Index) Practice Body Weight 2020-10-27 00:00:00 260 [lb_av] [facility] BP Diastolic 2020-09-23 00:00:00 86 mm[Hg] [facility] Height 2020-09-23 00:00:00 70 [in_i] [facility] BMI (Body Mass 2020-09-23 00:00:00 37.3 kg/m2 [facility] Index) Practice BP Systolic 2020-09-23 00:00:00 136 mm[Hg] [facility] Body Weight 2020-09-23 00:00:00 260 [lb_av] [facility] Height/Length 2021-08-16 11:09:21 177.80 cm Measured Weight Dosing 2021-08-16 11:09:21 108.86 kg Procedures Procedure Date / Time Performed Performing Clinician [facility] e Screening for Malignant [facility] Neoplasm of Prostate Practice Extraction of Cataract [facility] Practice Removal of Colon [facility] Encounters Start End Encounter Admission Attending Care Care Encounter Source Date/Time Date/Time Type Type Clinicians Facility Department ID 2021-01-04 2021-01-04 Outpatient Miller_S_AH [id number] 03:27:00 03:27:00 [id number] Family Practic e 2020-11-10 2020-11-10 Outpatient Ajibade_O_A VFP VFP 792 [facility] 06:52:00 06:52:00 H [id number] Family Practic e 2020-10-27 2020-10-27 Outpatient Ajibade_O_A VFP VFP [address] 01:51:00 01:51:00 H [id number] Family Practic e 2020-10-27 2020-10-27 [place] [facility]FP [place] - [id number] [facility] 00:00:00 00:00:00 Sukhwinder Carrasquillo Famil y PET STYLIST: [id number] Medical - Pract ic Tammi Crowder, [email or web address] [facility] [phone] , Ph. 2020-10-21 2020-10-21 Outpatient Ajibade_O_A VFP VFP [phone] [facility] 08:40:00 08:40:00 H [id number] Family Practic e 2020-09-23 2020-09-23 Outpatient Ajibade_O_A VFP VFP [phone] [place] 04:30:00 04:30:00 H [id number] Family Practic e 2020-09-23 2020-09-23 [place] [facility]FP [place] - [id number] [facility] 00:00:00 00:00:00 Sukhwinder Carrasquillo y PET STYLIST: [id number] Medical - Pract corazon Tammi Crowder, [email or web address] [facility] [phone] , Ph. 2020-03-25 2020-03-25 Outpatient Ajibade_O_A VFP VFP [phone] [facility] 04:36:00 04:36:00 H [id number] Family Practic e 2020-03-25 2020-03-25 Outpatient Ajibade_O_A VFP VFP [phone] [place] 04:36:00 04:36:00 H [id number] Family Practic e 2020-03-25 2020-03-25 Outpatient Ajibade_O_A VFP VFP [phone] [place] 04:36:00 04:36:00 H [id number] Family Practic e 2020-03-25 2020-03-25 Outpatient Ajibade_O_A VFP VFP [phone] [place] 04:36:00 04:36:00 H [id number] Family Practic e 2019-09-17 2019-09-17 Outpatient Ige-Odunuga VFP VFP [phone] [place] 07:13:00 07:13:00 _J_ [id number] Family Practic e 2019-09-17 2019-09-17 [phone] [facility] 07:13:00 07:13:00 _J_AH [id number] Family Practic e 2019-07-03 2019-07-08 Inpatient 1 Ivan Contreras [facility] PSY [id number] 10:34:00 13:25:00 Ivan Contreras [facility] Results Test Description Test Time Test [...] to the main Lab for analysis. POC [id number] 07:11:51 Test Item Value Reference Range Interpretation Comments Glucose POC (test 118 mg/dL 70-115 H Notify RN or MDIf you code = Glucose POC) consider your patient critically ill, the Sj-Accu Chec k Infrom II meter should not be used for Glucos e determination. Draw a venous Glucose and send to the main Lab for analysis. POC [id number] 19:44:19 Test Item Value Reference Range Interpretation Comments Glucose POC (test 151 mg/dL 70-115 H Notify RN or MDIf you code = Glucose POC) consider your patient critically ill, the Sj-Accu Chec k Infrom II meter should not be used for Glucos e determination. Draw a venous Glucose and send to the main Lab for analysis. POC [id number] 15:05:21 Test Item Value Reference Range Interpretation Comments Glucose POC (test 119 mg/dL 70-115 H Notify RN or MDIf you code = Glucose POC) consider your patient critically ill, the Sj-Accu Chec k Infrom II meter should not be used for Glucos e determination. Draw a venous Glucose and send to the main Lab for analysis. POC [id number] 11:16:17 Test Item Value Reference Range Interpretation Comments Glucose POC (test 132 mg/dL 70-115 H Notify RN or MDIf you code = Glucose POC) consider your patient critically ill, the Sj-Accu Chec k Infrom II meter should not be used for Glucos e determination. Draw a venous Glucose and send to the main Lab for analysis. POC [id number] 06:17:22 Test Item Value Reference Range Interpretation Comments Glucose POC (test 121 mg/dL 70-115 H Notify RN or MDIf you code = Glucose POC) consider your patient critically ill, the Sj-Accu Chec k Infrom II meter should not be used for Glucos e determination. Draw a venous Glucose and send to the main Lab for analysis. POC [id number] 20:10:13 Test Item Value Reference Range Interpretation Comments Glucose POC (test 133 mg/dL 70-115 H If you con child daycare worker your code = Glucose POC) patient critically ill, the Sj-Accu Check Infrom II meter should not be used for Glucose determination. Draw a venous Glucose and send to the main Lab for analysis. POC [id number] 06:13:49 Test Item Value Reference Range Interpretation Comments Glucose POC (test 116 mg/dL 70-115 H If you con child daycare worker your code = Glucose POC) patient critically ill, the Sj-Accu Check Infrom II meter should not be used for Glucose determination. Draw a venous Glucose and send to the main Lab for analysis. POC [id number] 19:55:46 Test Item Value Reference Range Interpretation Comments Glucose POC (test 121 mg/dL 70-115 H If you con child daycare worker your code = Glucose POC) patient critically ill, the Sj-Accu Check Infrom II meter should not be used for Glucose determination. Draw a venous Glucose and send to the main Lab for analysis. POC [id number] 16:21:40 Test Item Value Reference Range Interpretation Comments Glucose POC (test 126 mg/dL 70-115 H Notify RN or MDIf you code = Glucose POC) consider your patient critically ill, the Sj-Accu Chec k Infrom II meter should not be used for Glucos e determination. Draw a venous Glucose and send to the main Lab for analysis. POC [id number] 12:10:14 Test Item Value Reference Range Interpretation Comments Glucose POC (test 138 mg/dL 70-115 H Notify RN or MDIf you code = Glucose POC) consider your patient critically ill, the Sj-Accu Chec k Infrom II meter should not be used for Glucos e determination. Draw a venous Glucose and send to the main Lab for analysis. POC [id number] 06:38:10 Test Item Value Reference Range Interpretation Comments Glucose POC (test 112 mg/dL 70-115 If you con child daycare worker your code = Glucose POC) patient critically ill, the Sj-Accu Check Infrom II meter should not be used for Glucose determination. Draw a venous Glucose and send to the main Lab for analysis. POC [id number] 19:46:42 Test Item Value Reference Range Interpretation Comments Glucose POC (test 107 mg/dL 70-115 If you con child daycare worker your code = Glucose POC) patient critically ill, the Sj-Accu Check Infrom II meter should not be used for Glucose determination. Draw a venous Glucose and send to the main Lab for analysis. RPR [id number] 15:31:56 Test Item Value Reference Range Interpretation Comments RPR Qual (test code = RPR Qual) Non-Reactive Non-Reactive Reactive Control (test code = Reactive Reactive Control) Weak Reactive Control (test Weak Reactive code = Weak Reactive Control) Non-Reactive Control (test code Non-Reactive = Non-Reactive Control) Lot # (test code = Lot #) [id number] Expiration Dt (test code = 05-29-20 N Expiration Dt) POC [id number] 15:06:05 Test Item Value Reference Range Interpretation Comments Glucose POC (test 118 mg/dL 70-115 H Notify RN or MDIf you code = Glucose POC) consider your patient critically ill, the Sj-Accu Chec k Infrom II meter should not be used for Glucos e determination. Draw a venous Glucose and send to the main Lab for analysis. POC [id number] 11:12:35 Test Item Value Reference Range Interpretation Comments Glucose POC (test 146 mg/dL 70-115 H If you con child daycare worker your code = Glucose POC) patient critically ill, the Sj-Accu Check Infrom II meter should not be used for Glucose determination. Draw a venous Glucose and send to the main Lab for analysis. POC [id number] 07:42:11 Test Item Value Reference Range Interpretation Comments Glucose POC (test 122 mg/dL 70-115 H If you con child daycare worker your code = Glucose POC) patient critically ill, the Sj-Accu Check Infrom II meter should not be used for Glucose determination. Draw a venous Glucose and send to the main Lab for analysis. POC [id number] 19:17:06 Test Item Value Reference Range Interpretation Comments Glucose POC (test 114 mg/dL 70-115 If you con child daycare worker your code = Glucose POC) patient critically ill, the Sj-Accu Check Infrom II meter should not be used for Glucose determination. Draw a venous Glucose and send to the main Lab for analysis. Urinalysis [id number] 12:27:32 Test Item Value Reference Range Interpretation Comments UA WBC (test code = UA WBC) 0-5 0-5 UA RBC (test code = UA RBC) 0-5 0-5 UA Squam Epithelial (test code = UA 0-5 Squam Epithelial) Comprehensive Metabolic [id number] 12:12:02 Test Item Value Reference Range Interpretation [...] A/G 1.6 ratio N Ratio) Comprehensive Metabolic [id number] 12:12:02 Test Item Value Reference Range Interpretation [...] National Kidney Foundation, http://nkdep.ni h.gov Comprehensive Metabolic [id number] 12:12:02 Test Item Value Reference Range Interpretation [...] ag e have not been validated by [facility] MDRD study and should be interpreted [...] ag e have not been validated by [facility] MDRD study and should be interpreted wit h caution. eGFR R esult Interpretation: eGFR > or = 60 is in the Normal RangeeGF R < 60 may mean kid kyle diseaseeGFR < 1 5 may mean kidney failure Rang es recommended by the National Kidney Foundation, http://nkdep.ni h.gov Urine Drug [id number] 12:01:40 Test Item Value Reference Range Interpretation [...] if desired . Complete Blood Count with [id number] 11:38:14 Test Item Value Reference Range Interpretation [...] code = IPF) 0 % N Automated [id number] 11:38:14 Test Item Value Reference Range Interpretation Comments Neutro Auto (test code = Neutro 76.4 % 36.0-70.0 H Auto) Lymph Auto (test code = Lymph Auto) 15.8 % 12.0-44.0 Sioux Auto (test code = Sioux Auto) 6.7 % 0.0-11.0 Eos, Auto (test code = Eos, Auto) 0.3 % 0.0-7.0 Basophil Auto (test code = Basophil 0.4 % 0.0-2.0 Auto) Neutro Absolute (test code = Neutro 5.3 x10 1.6-7.4 Absolute) Lymph Absolute (test code = Lymph 1.09 x10 .50-4.60 Absolute) Sioux Absolute (test code = Sioux .46 x10 .00-1.20 Absolute) Eos Absolute (test code = Eos 0.02 x10 0.00-0.74 Absolute) Baso Absolute (test code = Baso 0.03 x10 0.00-0.21 Absolute) IG [id number] 11:38:14 Test Item Value Reference Range Interpretation Comments IG (test code = IG) 0.4 % 0.0-5.0 IG Abs (test code = IG Abs) 0 x10 N Urinalysis with Culture, if [id number] 11:37:19 Test Item Value Reference Range Interpretation [...] Micro Ind?) rule GL_SJM_UA_MICRO _IN D POC [id number] 11:07:06 Test Item Value Reference Range Interpretation Comments Glucose POC (test 123 mg/dL 70-115 H If you con child daycare worker your code = Glucose POC) patient critically ill, the Sj-Accu Check Infrom II meter should not be used for Glucose determination. Draw a venous Glucose and send to the main Lab for analysis.
[2022-09-04] MEDS ORDERED: NA CHLORIDE 0.9% 1,000 ML ONE (06:31)
[2022-09-04] MEDS ORDERED: lisinopriL 20 MG TAB ONE (06:40)
[2022-09-04] MEDS ORDERED: METOPROLOL TAR 50 MG TAB ONE (06:40)
[2022-09-04 07:11] LABS: Absolute Lymphocytes (CBC) 1.1 K/uL (0.7-4.9); Hematocrit 40.9 % (39.6-49.0); Lymphocytes % 18.9 % (15.3-44.8); MCV 87.2 fL (80-100); MPV 9.1 fL (7.6-11.3); RBC Red Blood Cell Count 4.69 M/uL (4.33-5.43)
[2022-09-04 07:33] LABS: Albumin 3.2 g/dL (3.4-5.0); Bilirubin Direct 0.1 mg/dL (0-0.2); Bilirubin Total 0.5 mg/dL (0.2-1.0); Magnesium 2.4 mg/dL (1.6-2.4); Potassium 4.2 mmol/L (3.5-5.1); Protein, Total 7.3 g/dL (6.4-8.2); Troponin High Sensitivity 25.1 pg/mL (<58.9)
--- NOTE | 2022-09-04 08:09 | ER ---
Nurse's Notes [facility] Name: Arun Mccall Age: 77 yrs Sex: Male : 1945 Arrival Date: 09/04/2022 Time: 06:19 Bed 15 Private MD: Diagnosis: Type 1 diabetes mellitus with hyperglycemia;Essential (primary) hypertension Presentation: 09/04 06:19 Chief complaint: Patient states: i woke up and i wasn't feeling very good. i was kind lg3 of dizzy and i knew my blood pressure was high. Im supposed to be on medicine but i haven't had any in about 6 months because i cannot afford it. Coronavirus screen: Client denies travel out of the [place] in the last 14 days. At this time, the client does not indicate any symptoms associated with coronavirus-19. Ebola Screen: No symptoms or risks identified at this time. Initial Sepsis Screen: Does the patient meet any 2 criteria? No. Patient's initial sepsis screen is negative. Does the patient have a suspected source of infection? No. Patient's initial sepsis screen is negative. Risk Assessment: Do you want to hurt yourself or someone else? Patient reports no desire to harm self or others. Onset of symptoms was September 04, 2022. 06:19 Method Of Arrival: EMS: [facility] lg3 06:19 Acuity: CHAYITO 3 lg3 Triage Assessment: 06:21 General: Appears in no apparent distress. comfortable, Behavior is calm, cooperative. lg3 Pain: Denies pain. EENT: No deficits noted. No signs and/or symptoms were reported regarding the EENT system. Neuro: No deficits noted. Gates Agitation-Sedation Scale (RASS): 0 - Alert and Calm Level of Consciousness is awake, alert, obeys commands, Oriented to person, place, time, situation. Cardiovascular: Denies chest pain, shortness of breath, Capillary refill < 3 seconds Clubbing of nail beds is absent JVD is absent Patient's skin is warm and dry. Respiratory: No deficits noted. Airway is patent Trachea midline Respiratory effort is even, unlabored, Respiratory pattern is regular, symmetrical. GI: No deficits noted. No signs and/or symptoms were reported involving the gastrointestinal system. Abdomen is round non-distended, obese. : No deficits noted. No signs and/or symptoms were reported regarding the genitourinary system. Derm: Skin is dry, Skin is normal, reddened sores noted to bilateral lower extremities. Musculoskeletal: No deficits noted. No signs and/or symptoms reported regarding the musculoskeletal system. Circulation, motion, and sensation intact. Range of motion: intact in all extremities. Historical: - Allergies: 06:21 fenofibrate nanocrystallized; lg3 06:21 insulin degludec; lg3 - PMHx: 06:21 Anxiety; Diabetes - IDDM; Hypertension; lg3 - PSHx: 06:21 colon sx; lg3 - Immunization history:: Adult Immunizations up to date, Client reports receiving the 1st dose of the Covid vaccine, Flu vaccine is not up to date. - Social history:: Smoking status: Patient denies any tobacco usage or history of. Patient/guardian denies using alcohol, street drugs. - Family history:: not pertinent. Screenin:24 [facility] ED Fall Risk Assessment (Adult) History of falling in the last 3 months, lg3 including since admission No falls in past 3 months (0 pts). Abuse screen: Denies threats or abuse. Denies injuries from another. Nutritional screening: No deficits noted. Tuberculosis screening: No symptoms or risk factors identified. Assessment: 06:24 General: see triage assessment . 3 Vital Signs: 06:19 BP 189 / 92; Pulse 89; Resp 17 S; Temp 98.8(O); Pulse Ox 99% on R/A; Weight 104.33 kg 3 (R); Height 5 ft. 10 in. (177.80 cm) (R); Pain 0/10; 07:44 BP 161 / 99; Pulse 78; Resp 18; Pulse Ox 99% on R/A; ph 08:19 BP 146 / 91; Pulse 73; Resp 18; Temp 98.4; Pulse Ox 100% on R/A; ph 06:19 Body Mass Index 33.00 (104.33 kg, 177.80 cm) 3 ED Course: 06:19 Patient arrived in ED. ke1 06:20 Sumeet Moody MD is Attending Physician. [facility] 06:21 Triage completed. 3 06:21 Arm band placed on right wrist. 3 06:24 Zenia Burton RN is Primary Nurse. ke1 06:24 Patient has correct armband on for positive identification. Placed in gown. Bed in low lg3 position. Call light in reach. Side rails up X 1. Client placed on continuous cardiac and pulse oximetry monitoring. NIBP monitoring applied. conveyor monitor on. Door closed. Noise minimized. Warm blanket given. 06:51 Basic Metabolic Panel Sent. lg3 06:51 CBC with Diff Sent. lg3 06:51 LFT's Sent. lg3 06:51 Magnesium Sent. lg3 06:51 NT PRO-BNP Sent. lg3 06:51 PT-INR Sent. lg3 06:51 Inserted saline lock: 22 gauge in right hand, using aseptic technique. Blood collected. lg3 06:58 XRAY Chest (1 view) In Process Unspecified. EDMS 07:06 Attending Physician role handed off by Sumeet Moody MD sp3 07:06 Elisha Myles MD is Attending Physician. sp3 08:09 Juan Myles DO is Referral Physician. sp3 08:20 No provider procedures requiring assistance completed. ph 09:08 IV discontinued, intact, bleeding controlled, No redness/swelling at site. Pressure ph dressing applied. Administered Medications: 06:51 Drug: Lopressor (metoprolol TARTRATE) 50 mg Route: PO; lg3 08:20 Follow up: Response: No adverse reaction; Blood pressure is lowered ph 06:51 Drug: Lisinopril 20 mg Route: PO; lg3 08:20 Follow up: Response: No adverse reaction; Blood pressure is lowered ph 06:58 Drug: NS 0.9% 1000 ml Route: IV; Rate: 125 ml/hr; Site: right hand; lg3 08:20 Follow up: Response: No adverse reaction; IV Status: Completed infusion ph Medication: 08:21 VIS not applicable for this client. ph Outcome: 08:09 Discharge ordered by . sp3 09:08 Discharged to home via wheelchair. ph 09:08 Condition: good 09:08 Discharge instructions given to patient, Instructed on discharge instructions, follow up and referral plans. medication usage, Demonstrated understanding of instructions, follow-up care, medications, Prescriptions given X 2. 09:08 Patient left the ED. ph Signatures: Dispatcher [employer] EDNV Sumeet Moody MD MD cha Hall, Patricia, RN RN ph Miriam Driscoll RN RN lg3 Elisha Myles MD MD sp3 Zenia Burton, RN RN ke1
--- NOTE | 2022-09-04 08:09 | EDPHYS ---
Physician Documentation [facility] Name: Arun Mccall Age: 77 yrs Sex: Male : 1945 Arrival Date: 09/04/2022 Time: 06:19 Bed 15 Private MD: ED Physician Elisha Myles HPI: 09/04 06:31 This 77 yrs old Male presents to ER via EMS with complaints of dizziness and tom hypertension. 06:31 grinder meds. The patient presents with dizziness, generalized weakness, lightheadedness. tom Onset: The symptoms/episode began/occurred 2 day(s) ago. Context: occurred at home. Modifying factors: The symptoms are alleviated by nothing, the symptoms are aggravated by nothing. Associated signs and symptoms: The patient has no apparent associated signs or symptoms. Severity of symptoms: At their worst the symptoms were mild in the emergency department the symptoms are unchanged. Patient's baseline: Neuro: alert and fully oriented. Historical: - Allergies: 06:21 fenofibrate nanocrystallized; lg3 06:21 insulin degludec; lg3 - PMHx: 06:21 Anxiety; Diabetes - IDDM; Hypertension; lg3 - PSHx: 06:21 colon sx; lg3 - Immunization history:: Adult Immunizations up to date, Client reports receiving the 1st dose of the Covid vaccine, Flu vaccine is not up to date. - Social history:: Smoking status: Patient denies any tobacco usage or history of. Patient/guardian denies using alcohol, street drugs. - Family history:: not pertinent. ROS: 06:31 Constitutional: Negative for fever, chills, and weight loss, Eyes: Negative for injury, tom pain, redness, and discharge, ENT: Negative for injury, pain, and discharge, Neck: Negative for injury, pain, and swelling, Cardiovascular: Negative for chest pain, palpitations, and edema, Respiratory: Negative for shortness of breath, cough, wheezing, and pleuritic chest pain, Abdomen/GI: Negative for abdominal pain, nausea, vomiting, diarrhea, and constipation, Back: Negative for injury and pain, : Negative for injury, bleeding, discharge, and swelling, MS/Extremity: Negative for injury and deformity, Skin: Negative for injury, rash, and discoloration, Psych: Negative for depression, anxiety, suicide ideation, homicidal ideation, and hallucinations, Allergy/Immunology: Negative for hives, rash, and allergies, Endocrine: Negative for neck swelling, polydipsia, polyuria, polyphagia, and marked weight changes, Hematologic/Lymphatic: Negative for swollen nodes, abnormal bleeding, and unusual bruising. 06:31 Neuro: Positive for dizziness. Exam: :31 Constitutional: This is a well developed, well nourished patient who is awake, alert, tom and in no acute distress. Head/Face: Normocephalic, atraumatic. Eyes: Pupils equal round and reactive to light, extra-ocular motions intact. Lids and lashes normal. Conjunctiva and sclera are non-icteric and not injected. Cornea within normal limits. Periorbital areas with no swelling, redness, or edema. ENT: Nares patent. No nasal discharge, no septal abnormalities noted. Tympanic membranes are normal and external auditory canals are clear. Oropharynx with no redness, swelling, or masses, exudates, or evidence of obstruction, uvula midline. Mucous membranes moist. Neck: Trachea midline, no thyromegaly or masses palpated, and no cervical lymphadenopathy. Supple, full range of motion without nuchal rigidity, or vertebral point tenderness. No Meningismus. Chest/axilla: Normal chest wall appearance and motion. Nontender with no deformity. No lesions are appreciated. Cardiovascular: Regular rate and rhythm with a normal S1 and S2. No gallops, murmurs, or rubs. Normal PMI, no JVD. No pulse deficits. Respiratory: Lungs have equal breath sounds bilaterally, clear to auscultation and percussion. No rales, rhonchi or wheezes noted. No increased work of breathing, no retractions or nasal flaring. Abdomen/GI: Soft, non-tender, with normal bowel sounds. No distension or tympany. No guarding or rebound. No evidence of tenderness throughout. Back: No spinal tenderness. No costovertebral tenderness. Full range of motion. Male : Normal genitalia with no discharge or lesions. Skin: Warm, dry with normal turgor. Normal color with no rashes, no lesions, and no evidence of cellulitis. MS/ Extremity: Pulses equal, no cyanosis. Neurovascular intact. Full, normal range of motion. Neuro: Awake and alert, GCS 15, oriented to person, place, time, and situation. Cranial nerves II-XII grossly intact. Motor strength 5/5 in all extremities. Sensory grossly intact. Cerebellar exam normal. Normal gait. Psych: Awake, alert, with orientation to person, place and time. Behavior, mood, and affect are within normal limits. 06:31 Skin: Appearance: Color: pale, Temperature: normal temperature, Moisture: normal moisture, petechiae, not noted, ecchymosis, not noted. 06:40 ECG was reviewed by the Attending Physician. tom Vital Signs: 06:19 BP 189 / 92; Pulse 89; Resp 17 S; Temp 98.8(O); Pulse Ox 99% on R/A; Weight 104.33 kg lg3 (R); Height 5 ft. 10 in. (177.80 cm) (R); Pain 0/10; 07:44 BP 161 / 99; Pulse 78; Resp 18; Pulse Ox 99% on R/A; ph 08:19 BP 146 / 91; Pulse 73; Resp 18; Temp 98.4; Pulse Ox 100% on R/A; ph 06:19 Body Mass Index 33.00 (104.33 kg, 177.80 cm) lg3 MDM: 06:22 Patient medically screened. tom 06:34 Differential Diagnosis altered mental status, sepsis. Differential diagnosis: cardiac tom arrhythmia, generalized weakness, hypovolemia. Data reviewed: vital signs, nurses notes, lab test result(s), EKG, radiologic studies, plain films. Consideration of Admission/Observation Patient was admitted/placed on observation. Escalation of care including admission/observation considered. 08:08 ED course: Laboratory values which indicate creatinine of 2.2. Last known creatinine sp3 was from 2006 which indicates 1.65. Patient history is old and not acute. We will tell patient to follow-up with PCP. Last blood pressure was 161/99 on discharge. No acute or other emergency condition now noted in the emergency department.. 09/04 06:22 Order name: Basic Metabolic Panel; Complete Time: 07:38 tom 09/04 06:22 Order name: CBC with Diff; Complete Time: 07:38 tom 09/04 06:22 Order name: LFT's; Complete Time: 07:38 [facility] 09/04 06:22 Order name: Magnesium; Complete Time: 07:38 [facility] 09/04 06:22 Order name: NT PRO-BNP; Complete Time: 07:38 [facility] 09/04 06:22 Order name: PT-INR; Complete Time: 07:38 [facility] 09/04 06:22 Order name: Troponin HS; Complete Time: 07:38 [facility] 09/04 06:22 Order name: XRAY Chest (1 view) [facility] 09/04 06:22 Order name: EKG; Complete Time: 06:23 [facility] 09/04 06:22 Order name: Cardiac monitoring; Complete Time: 06:34 [facility] 09/04 06:22 Order name: EKG - Nurse/Tech; Complete Time: 06:43 [facility] 09/04 06:22 Order name: IV Saline Lock; Complete Time: 06:51 [facility] 09/04 06:22 Order name: Labs collected and sent; Complete Time: 06:51 [facility] 09/04 06:22 Order name: O2 Per Protocol; Complete Time: 06:26 [facility] 09/04 06:22 Order name: O2 Sat Monitoring; Complete Time: 06:26 [facility] EC:40 Rate is 82 beats/min. Rhythm is regular. QRS [place] is Normal. MA interval is normal. QRS tmo interval is normal. QT interval is normal. No Q waves. T waves are Normal. No ST changes noted. Clinical impression: NSR w/ Non-specific ST/T Changes and No evidence of ischemia. Interpreted by me. Reviewed by me. Administered Medications: 06:51 Drug: Lopressor (metoprolol TARTRATE) 50 mg Route: PO; lg3 08:20 Follow up: Response: No adverse reaction; Blood pressure is lowered ph 06:51 Drug: Lisinopril 20 mg Route: PO; lg3 08:20 Follow up: Response: No adverse reaction; Blood pressure is lowered ph 06:58 Drug: NS 0.9% 1000 ml Route: IV; Rate: 125 ml/hr; Site: right hand; lg3 08:20 Follow up: Response: No adverse reaction; IV Status: Completed infusion ph Disposition Summary: 09/04/22 08:09 Discharge Ordered Location: Home sp3 Problem: new sp3 Symptoms: have improved sp3 Condition: Stable sp3 Diagnosis - Type 1 diabetes mellitus with hyperglycemia sp3 - Essential (primary) hypertension sp3 Followup: tom - With: Private Physician - When: 2 - 3 days - Reason: Recheck today's complaints, Continuance of care, Re-evaluation by your physician Followup: tom - With: - When: 2 - 3 days - Reason: Recheck today's complaints, Re-evaluation by your physician Discharge Instructions: - Discharge Summary Sheet tom - Type 1 Diabetes Mellitus, Diagnosis, Adult tom - Hyperglycemia tom - Hypertension, Adult tom - Hypertension, Adult, [id number] tom - Diabetes Mellitus and Nutrition, Adult tom - Managing Your Hypertension tom - Aspirin and Your Heart tom Forms: - Medication Reconciliation Form sp3 - Thank You Letter sp3 - Antibiotic Education sp3 - Prescription Opioid Use sp3 Prescriptions: - Toprol XL 50 mg Oral Tablet - take 1 tablet by ORAL route once daily; 20 tablet; Refills: 0, Product tom Selection Permitted - Lisinopril 10 mg Oral Tablet - take 1 tablet by ORAL route once daily; 20 tablet; Refills: 0, Product tom Selection Permitted Signatures: Dispatcher [employer] EDSumeet Kearns MD MD cha Gibson, Lacie, RN RN lg3 Elisha Myles MD MD sp3 Alyx Crowell RN ph Corrections: (The following items were deleted from the chart) 08:20 06:22 Urine Dipstick-Ancillary ordered. [facility] ph
--- NOTE | 2022-09-04 09:25 | RAD REPORT ---
EXAM DESCRIPTION: RAD - Chest Single View - 09/04/2022 6:56 am CLINICAL HISTORY: COUGH Chest pain. COMPARISON: Chest Single View dated 05/14/2022; Chest Single View dated 06/25/2019; Chest Single Vie w dated 06/22/2019; Abdomen 1 View (KUB) dated 06/19/2019 FINDINGS: Portable technique limits examination quality. There is elevation of the left hemidiaphragm with mild atelectasis the left lung base. This appears c hronic in etiology. The lungs are grossly clear. Cardiac size mildly prominent. No displaced fracture s. IMPRESSION: No acute intrathoracic process suspected.
[2022-09-04 09:31] VITALS: BP 146/91; TEMP 98.4; O2SAT 100
== END 2022-09-04 09:08 | disposition home or self-care (01) ==
LOC: ER 06:16
DX: E10.65 Type 1 diabetes mellitus with hyperglycemia (principal); I10 Essential (primary) hypertension; Z88.8 Allergy status to other drugs, medicaments and biological substances
CPT/HCPCS: 93005; 85025; 80048; 36415; 83735; 85610; 80076; 84484; 83880; 71045; J7030

== ENCOUNTER 2022-11-28 10:45 | Emergency (ER) | payer OTHER ==
--- OUTSIDE RECORDS SUMMARY | 2022-11-28 11:13 | XMS REPORT | Continuity of Care Document ---
:1945 Author Organization [facility] t Address [address] [place] [address] [place] [id number] Care Team Providers Name Role Phone Miller_S_AH Attending Clinician Unavailable Ajibade_O_AH Attending Clinician Unavailable Ige-Odunfernando_J_AH Attending Clinician Unavailable Ivan Contreras Attending Clinician Unavailable Ivan Contreras Attending Clinician Unavailable Miller_S_AH Admitting Clinician Unavailable Ajibade_O_AH Admitting Clinician Unavailable Ige-Odunfernando_J_AH Admitting Clinician Unavailable Ivan Contreras Admitting Clinician Unavailable Payers Payer Name Policy Type Policy Number Effective Date Expiration Date S [facility] [place] - [id number] 3312-01-01 [employer] 00:00:00 (MEDICARE REPLACEMENT/ADVANT AGE - HMO) Problems Condition Condition Condition Status Onset Resolution Last Treating Co mments Source Name Details Category Date Date Treatment Clinician Date Senile Senile Problem Active [facility] purpura Purpura 10-27 Family 00:00: Practic [...] Date Date Clinician No Known Drug Active [facility] Social History Smoking Status Start Date Stop Date Source Former [facility] Medications Ordered Filled Start Stop Current Ordering Indication Dosage Frequency Signature Comments Components Source Medication Medication Date Date Medication? Clinician (SIG) Name Name Asprin Ec Asprin Ec No 1 Q1D Asprin Ec [facility] Low Dose 81 Low Dose 81 Low Dose Family mg mg 81 mg Practic tablet,juan tablet,juan tablet,del e yed release yed release ayed Take 1 Take 1 release tablet tablet Take 1 every day every day tablet by oral by oral every day route. route. by oral route. hydroxyzine hydroxyzine No 2 Q12H hydroxyzin [facility] HCl 25 mg HCl 25 mg [...] night. metoprolol metoprolol No 1 BID metoprolol [facility] tartrate 50 tartrate 50 tartrate Family [...] Comments Source Height 2020-10-27 00:00:00 70 [in_i] [facility] BMI (Body Mass 2020-10-27 00:00:00 37.3 kg/m2 [facility] Family Index) Practice Body Weight 2020-10-27 00:00:00 260 [lb_av] [facility] BP Diastolic 2020-09-23 00:00:00 86 mm[Hg] [facility] Height 2020-09-23 00:00:00 70 [in_i] [facility] BMI (Body Mass 2020-09-23 00:00:00 37.3 kg/m2 [facility] Index) Practice BP Systolic 2020-09-23 00:00:00 136 mm[Hg] [facility] Body Weight 2020-09-23 00:00:00 260 [lb_av] [facility] Height/Length 2021-08-16 11:09:21 177.80 cm Measured Weight Dosing 2021-08-16 11:09:21 108.86 kg Procedures Procedure Date / Time Performed Performing Clinician [facility] e Screening for Malignant [facility] Neoplasm of Prostate Practice Extraction of Cataract [facility] Practice Removal of Colon [facility] Encounters Start End Encounter Admission Attending Care Care Encounter Source Date/Time Date/Time Type Type Clinicians Facility Department ID 2021-01-04 2021-01-04 Outpatient Miller_S_AH VFP VFP [id number] [facility] 03:27:00 03:27:00 [id number] Family Practic e 2020-11-10 2020-11-10 Outpatient Ajibade_O_A VFP VFP [id number] [facility] 06:52:00 06:52:00 H [id number] Family Practic e 2020-10-27 2020-10-27 Outpatient Ajibade_O_A VFP VFP [address] 01:51:00 01:51:00 H [id number] Family Practic e 2020-10-27 2020-10-27 [place] [facility] [place] - [id number] V illage 00:00:00 00:00:00 Sukhwinder Carrasquillo Famil y FERRYBOAT DECKHAND: [id number] Medical - Pract ic Tammi Crowder, [email or web address] [facility], [facility] [address] , Ph. 2020-10-21 2020-10-21 Outpatient Ajibade_O_A VFP VFP [phone] [facility] 08:40:00 08:40:00 H [id number] Family Practic e 2020-09-23 2020-09-23 Outpatient Ajibade_O_A VFP VFP [id number] [facility] 04:30:00 04:30:00 H [id number] Family Practic e 2020-09-23 2020-09-23 [place] [facility]FP [place] - [id number] [facility] 00:00:00 00:00:00 Sukhwinder Carrasquillo y FERRYBOAT DECKHAND: [id number] Medical - Pract corazon Tammi Crowder, [email or web address] [facility], [facility] [address] , Ph. 2020-03-25 2020-03-25 Outpatient Ajibade_O_A VFP VFP [id number] [facility] 04:36:00 04:36:00 H [id number] Family Practic e 2020-03-25 2020-03-25 Outpatient Ajibade_O_A VFP VFP [phone] [facility] 04:36:00 04:36:00 H [id number] Family Practic e 2020-03-25 2020-03-25 Outpatient Ajibade_O_A VFP VFP [id number] [facility] 04:36:00 04:36:00 H [id number] Family Practic e 2020-03-25 2020-03-25 Outpatient Ajibade_O_A VFP VFP [id number] [facility] 04:36:00 04:36:00 H [id number] Family Practic e 2019-09-17 2019-09-17 Outpatient Ige-Odunuga VFP VFP [id number] [facility] 07:13:00 07:13:00 _Maximus_ [id number] Family Practic e 2019-09-17 2019-09-17 [facility] [phone] [facility] 07:13:00 07:13:00 _J_AH [id number] Family Practic e 2019-07-03 2019-07-08 Inpatient 1 Ivan Contreras [facility] [id number] 10:34:00 13:25:00 Ivan Contreras [facility] Results Test Description Test Time Test [...] to the main Lab for analysis. POC [id number] 07:11:51 Test Item Value Reference Range Interpretation Comments Glucose POC (test 118 mg/dL 70-115 H Notify RN or MDIf you code = Glucose POC) consider your patient critically ill, the Sj-Accu Chec k Infrom II meter should not be used for Glucos e determination. Draw a venous Glucose and send to the main Lab for analysis. POC [id number] 19:44:19 Test Item Value Reference Range Interpretation Comments Glucose POC (test 151 mg/dL 70-115 H Notify RN or MDIf you code = Glucose POC) consider your patient critically ill, the Sj-Accu Chec k Infrom II meter should not be used for Glucos e determination. Draw a venous Glucose and send to the main Lab for analysis. POC [id number] 15:05:21 Test Item Value Reference Range Interpretation Comments Glucose POC (test 119 mg/dL 70-115 H Notify RN or MDIf you code = Glucose POC) consider your patient critically ill, the Sj-Accu Chec k Infrom II meter should not be used for Glucos e determination. Draw a venous Glucose and send to the main Lab for analysis. POC [id number] 11:16:17 Test Item Value Reference Range Interpretation Comments Glucose POC (test 132 mg/dL 70-115 H Notify RN or MDIf you code = Glucose POC) consider your patient critically ill, the Sj-Accu Chec k Infrom II meter should not be used for Glucos e determination. Draw a venous Glucose and send to the main Lab for analysis. POC [id number] 06:17:22 Test Item Value Reference Range Interpretation Comments Glucose POC (test 121 mg/dL 70-115 H Notify RN or MDIf you code = Glucose POC) consider your patient critically ill, the Sj-Accu Chec k Infrom II meter should not be used for Glucos e determination. Draw a venous Glucose and send to the main Lab for analysis. POC [id number] 20:10:13 Test Item Value Reference Range Interpretation Comments Glucose POC (test 133 mg/dL 70-115 H If you con dairy nutrition consultant your code = Glucose POC) patient critically ill, the Sj-Accu Check Infrom II meter should not be used for Glucose determination. Draw a venous Glucose and send to the main Lab for analysis. POC [id number] 06:13:49 Test Item Value Reference Range Interpretation Comments Glucose POC (test 116 mg/dL 70-115 H If you con dairy nutrition consultant your code = Glucose POC) patient critically ill, the Sj-Accu Check Infrom II meter should not be used for Glucose determination. Draw a venous Glucose and send to the main Lab for analysis. POC [id number] 19:55:46 Test Item Value Reference Range Interpretation Comments Glucose POC (test 121 mg/dL 70-115 H If you con dairy nutrition consultant your code = Glucose POC) patient critically ill, the Sj-Accu Check Infrom II meter should not be used for Glucose determination. Draw a venous Glucose and send to the main Lab for analysis. POC [id number] 16:21:40 Test Item Value Reference Range Interpretation Comments Glucose POC (test 126 mg/dL 70-115 H Notify RN or MDIf you code = Glucose POC) consider your patient critically ill, the Sj-Accu Chec k Infrom II meter should not be used for Glucos e determination. Draw a venous Glucose and send to the main Lab for analysis. POC [id number] 12:10:14 Test Item Value Reference Range Interpretation Comments Glucose POC (test 138 mg/dL 70-115 H Notify RN or MDIf you code = Glucose POC) consider your patient critically ill, the Sj-Accu Chec k Infrom II meter should not be used for Glucos e determination. Draw a venous Glucose and send to the main Lab for analysis. POC [id number] 06:38:10 Test Item Value Reference Range Interpretation Comments Glucose POC (test 112 mg/dL 70-115 If you con dairy nutrition consultant your code = Glucose POC) patient critically ill, the Sj-Accu Check Infrom II meter should not be used for Glucose determination. Draw a venous Glucose and send to the main Lab for analysis. POC [id number] 19:46:42 Test Item Value Reference Range Interpretation Comments Glucose POC (test 107 mg/dL 70-115 If you con dairy nutrition consultant your code = Glucose POC) patient critically ill, the Sj-Accu Check Infrom II meter should not be used for Glucose determination. Draw a venous Glucose and send to the main Lab for analysis. RPR [id number] 15:31:56 Test Item Value Reference Range Interpretation Comments RPR Qual (test code = RPR Qual) Non-Reactive Non-Reactive Reactive Control (test code = Reactive Reactive Control) Weak Reactive Control (test Weak Reactive code = Weak Reactive Control) Non-Reactive Control (test code Non-Reactive = Non-Reactive Control) Lot # (test code = Lot #) [id number] N Expiration Dt (test code = 05-29-20 N Expiration Dt) POC [id number] 15:06:05 Test Item Value Reference Range Interpretation Comments Glucose POC (test 118 mg/dL 70-115 H Notify RN or MDIf you code = Glucose POC) consider your patient critically ill, the Sj-Accu Chec k Infrom II meter should not be used for Glucos e determination. Draw a venous Glucose and send to the main Lab for analysis. POC [id number] 11:12:35 Test Item Value Reference Range Interpretation Comments Glucose POC (test 146 mg/dL 70-115 H If you con dairy nutrition consultant your code = Glucose POC) patient critically ill, the Sj-Accu Check Infrom II meter should not be used for Glucose determination. Draw a venous Glucose and send to the main Lab for analysis. POC [id number] 07:42:11 Test Item Value Reference Range Interpretation Comments Glucose POC (test 122 mg/dL 70-115 H If you con dairy nutrition consultant your code = Glucose POC) patient critically ill, the Sj-Accu Check Infrom II meter should not be used for Glucose determination. Draw a venous Glucose and send to the main Lab for analysis. POC [id number] 19:17:06 Test Item Value Reference Range Interpretation Comments Glucose POC (test 114 mg/dL 70-115 If you con dairy nutrition consultant your code = Glucose POC) patient critically ill, the Sj-Accu Check Infrom II meter should not be used for Glucose determination. Draw a venous Glucose and send to the main Lab for analysis. Urinalysis [id number] 12:27:32 Test Item Value Reference Range Interpretation Comments UA WBC (test code = UA WBC) 0-5 0-5 UA RBC (test code = UA RBC) 0-5 0-5 UA Squam Epithelial (test code = UA 0-5 Squam Epithelial) Comprehensive Metabolic [id number] 12:12:02 Test Item Value Reference Range Interpretation [...] A/G 1.6 ratio N Ratio) Comprehensive Metabolic [id number] 12:12:02 Test Item Value Reference Range Interpretation [...] National Kidney Foundation, http://nkdep.ni h.gov Comprehensive Metabolic [id number] 12:12:02 Test Item Value Reference Range Interpretation [...] ag e have not been validated by [facility] MDRD study and should be interpreted wit [...] ag e have not been validated by [facility] MDRD study and should be interpreted wit h caution. eGFR R esult Interpretation: eGFR > or = 60 is in the Normal RangeeGF R < 60 may mean kid kyle diseaseeGFR < 1 5 may mean kidney failure Rang es recommended by the National Kidney Foundation, http://nkdep.ni h.gov Urine Drug [id number] 12:01:40 Test Item Value Reference Range Interpretation [...] if desired . Complete Blood Count with [id number] 11:38:14 Test Item Value Reference Range Interpretation [...] code = IPF) 0 % N Automated [id number] 11:38:14 Test Item Value Reference Range Interpretation Comments Neutro Auto (test code = Neutro 76.4 % 36.0-70.0 H Auto) Lymph Auto (test code = Lymph Auto) 15.8 % 12.0-44.0 Wood Auto (test code = Wood Auto) 6.7 % 0.0-11.0 Eos, Auto (test code = Eos, Auto) 0.3 % 0.0-7.0 Basophil Auto (test code = Basophil 0.4 % 0.0-2.0 Auto) Neutro Absolute (test code = Neutro 5.3 x10 1.6-7.4 Absolute) Lymph Absolute (test code = Lymph 1.09 x10 .50-4.60 Absolute) Wood Absolute (test code = Wood .46 x10 .00-1.20 Absolute) Eos Absolute (test code = Eos 0.02 x10 0.00-0.74 Absolute) Baso Absolute (test code = Baso 0.03 x10 0.00-0.21 Absolute) IG [id number] 11:38:14 Test Item Value Reference Range Interpretation Comments IG (test code = IG) 0.4 % 0.0-5.0 IG Abs (test code = IG Abs) 0 x10 N Urinalysis with Culture, if [id number] 11:37:19 Test Item Value Reference Range Interpretation [...] Micro Ind?) rule GL_SJM_UA_MICRO _IN D POC [id number] 11:07:06 Test Item Value Reference Range Interpretation Comments Glucose POC (test 123 mg/dL 70-115 H If you con dairy nutrition consultant your code = Glucose POC) patient critically ill, the Sj-Accu Check Infrom II meter should not be used for Glucose determination. Draw a venous Glucose and send to the main Lab for analysis.
--- NOTE | 2022-11-28 11:26 | RAD REPORT ---
EXAM DESCRIPTION: CT - Head Brain Wo Cont - 11/28/2022 11:18 am CLINICAL HISTORY: Headache COMPARISON: 2019 TECHNIQUE: Computed axial tomography of the head was obtained. IV contrast was not requested. All CT scans are performed using dose optimization technique as appropriate and may include automated exposure control or mA/KV adjustment according to patient size. FINDINGS: An intracranial bleed is not seen The ventricles are normal in caliber No extra-axial fluid collection is noted. Mild low-density areas within periventricular, deep and subcortical white matter likely represent isc hemic changes secondary to small vessel disease. Mild cerebral atrophy Fluid within the sinuses/ mastoids is not seen. IMPRESSION: No acute intracranial abnormality is seen If patient's symptoms persist MRI of the brain would be recommended
--- NOTE | 2022-11-28 11:30 | RAD REPORT ---
EXAM DESCRIPTION: Barbara Single View11/28/2022 11:21 am CLINICAL HISTORY: Cough COMPARISON: 2018 FINDINGS: The lungs appear clear of acute infiltrate. The heart is normal size Chronic elevation left hemidiaphragm
[2022-11-28 11:40] LABS: Absolute Lymphocytes (CBC) 1.4 K/uL (0.7-4.9); Hematocrit 38.6 % (39.6-49.0); Lymphocytes % 23.4 % (15.3-44.8); MCV 86.9 fL (80-100); MPV 9.3 fL (7.6-11.3); RBC Red Blood Cell Count 4.44 M/uL (4.33-5.43)
[2022-11-28] MEDS ORDERED: NA CHLORIDE 0.9% 500 ML ONE (11:48)
[2022-11-28 11:56] LABS: Albumin 2.9 g/dL (3.4-5.0); Bilirubin Total 0.5 mg/dL (0.2-1.0); Potassium 5.1 mEq/L (3.5-5.1); Protein, Total 6.6 g/dL (6.4-8.2); Troponin High Sensitivity 10.7 pg/mL (<58.9)
[2022-11-28 13:27] LABS: Specific Gravity 1.009 (1.005-1.030); Urine Bacteria <20 /HPF (<20); Urine Bilirubin NEGATIVE (Negative); Urine Blood Trace (Negative); Urine Clarity Clear (Clear); Urine Color Colorless (Yellow); Urine Glucose 2+ (Negative); Urine Mucus Slight /HPF (None Seen); Urine Protein 3+ (Negative); Urine RBC <5 /HPF (None Seen); Urine Urobilinogen Normal (Normal)
--- NOTE | 2022-11-28 13:31 | EDPHYS ---
Physician Documentation [facility] Name: Arun Mccall Age: 77 yrs Sex: Male : 1945 Arrival Date: 11/28/2022 Time: 10:45 Bed DIS1 Private MD: ED Physician Atul Martinez HPI: 11/28 11:10 This 77 yrs old Male presents to ER via EMS with complaints of Chest pain bs3 versus chronic unsteadiness. 11:10 77-year-old male history of diabetes, hypertension, anxiety presents with EMS after he bs3 was doing things out of his home per EMS the original call was from the [facility] office because they needed the patient out of his apartment as he was getting evicted he then said that he has been chronically weak and unsteady on his feet and came here the original call was for chest pain with patient denying chest pain he states that he does not want to be here he states that he wants to find his son who is in [place] but he has been unable to contact for the last month he notes that his unsteadiness has been ongoing for years and he has chronic changes in his right lower extremity for years he notes that his diabetes is uncontrolled because he cannot afford the medicine that his doctors want to prescribe. Historical: - Allergies: 10:53 fenofibrate nanocrystallized; ph 10:53 insulin degludec; ph - PMHx: 10:53 Anxiety; Diabetes - IDDM; Hypertension; ph - PSHx: 10:53 colon sx; ph - Immunization history:: Adult Immunizations unknown. - Social history:: Smoking status: Patient/guardian denies using tobacco, but has a distant history of tobacco abuse. ROS: 11:10 Constitutional: Negative for fever, chills bs3 11:10 All other systems are negative. Exam: 11:10 Constitutional: This is a well developed, well nourished patient who is awake, alert, bs3 and in no acute distress. Head/Face: Normocephalic, atraumatic. Eyes: Pupils equal round and reactive to light, extra-ocular motions intact. Lids and lashes normal. ENT: mmm, no posterior phyarngeal erythema Neck: Trachea midline, no thyromegaly, no neck stiffness Chest/axilla: Normal chest wall appearance and motion. Nontender with no deformity. No lesions are appreciated. Cardiovascular: Regular rate and rhythm with a normal S1 and S2. 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 Neurovascular intact. Full, normal range of motion. Neuro: Awake and alert, GCS 15, oriented to person, place, time, and situation. Cranial nerves II-XII grossly intact. Motor strength 5/5 in all extremities. Sensory grossly intact. Psych: Awake, alert, with orientation to person, place and time. Behavior, mood, and affect are within normal limits. Vital Signs: 10:49 BP 171 / 92; Pulse 62; Resp 18; Temp 97.7; Pulse Ox 98% on R/A; Weight 80 kg; Height 5 ph ft. 10 in. ; Pain 0/10; 13:30 BP 168 / 89; Pulse 64; Resp 18; Pulse Ox 99% on R/A; ph 15:00 BP 164 / 76; Pulse 61; Resp 18; Temp 98; Pulse Ox 99% on R/A; ph 10:49 Body Mass Index 25.31 (80.00 kg, 177.8 cm) ph 10:49 Pain Scale: Adult ph MDM: 10:47 Patient medically screened. bs3 11:10 Data reviewed: vital signs, nurses notes. ED course: Patient with chronic symptoms he bs3 likely has diabetic neuropathy with decreased sensation to light touch in his feet which she is chronically had, will evaluate for electrolyte abnormality will evaluate for infectious process he was recently seen here, he would not have come to the hospital if not getting evicated.. 12:15 ED course: Labs notable for elevated creatinine but not significantly changed from bs3 prior elevated glucose but no DKA CT negative for intracranial hemorrhage or mass chronic changes. 13:29 ED course: Urinalysis negative for acute pathology. bs3 11/28 10:48 Order name: CBC with Diff; Complete Time: 12:14 bs3 11/28 10:48 Order name: Comprehensive Metabolic Panel; Complete Time: 12:14 bs3 11/28 10:48 Order name: Urinalysis w/ reflexes; Complete Time: 13:29 bs3 11/28 10:48 Order name: Troponin High Sensitivity; Complete Time: 12:14 bs3 11/28 10:48 Order name: XRAY Chest (1 view); Complete Time: 11:39 bs3 11/28 10:50 Order name: CT Head Brain wo Cont; Complete Time: 11:39 bs3 11/28 10:48 Order name: EKG - Nurse/Tech; Complete Time: 11:32 bs3 Administered Medications: 12:20 Drug: NS 0.9% IV 500 ml Route: IV; Rate: bolus; Site: left antecubital; ph 13:00 Follow up: IV Status: Completed infusion ph Disposition Summary: 11/28/22 13:30 Discharge Ordered Location: Home bs3 Symptoms: are unchanged bs3 Condition: Fair bs3 Problem: an acute exacerbation(11/28/22 13:30) bs3 Diagnosis - Muscle weakness (generalized) bs3 - Hyperglycemia, unspecified bs3 - 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
--- NOTE | 2022-11-28 13:31 | ER ---
Nurse's Notes [facility] Name: Arun Mccall Age: 77 yrs Sex: Male : 1945 Arrival Date: 11/28/2022 Time: 10:45 Bed DIS1 Private MD: Diagnosis: Muscle weakness (generalized);Hyperglycemia, unspecified;Hypertensive heart and chronic kidney disease with heart failure and with stage 5 chronic kidney disease, or end stage renal disease Presentation: 11/28 10:49 Chief complaint: EMS states: Pt had constables at his apartment to serve an eviction ph notice when he began to experience dizziness and generalized weakness, denies chest pain, stable VS other than elevated BP 170s/90s, states that he has not taken his medications this morning. Coronavirus screen: Vaccine status: Patient reports receiving the 1st dose of the Covid vaccine. Ebola Screen: No symptoms or risks identified at this time. Initial Sepsis Screen: Does the patient meet any 2 criteria? No. Patient's initial sepsis screen is negative. Does the patient have a suspected source of infection? No. Patient's initial sepsis screen is negative. Risk Assessment: Do you want to hurt yourself or someone else? Patient reports no desire to harm self or others. Onset of symptoms was November 28, 2022. 10:49 Method Of Arrival: EMS: [facility] ph 10:49 Acuity: CHAYITO 3 ph Triage Assessment: 10:55 General: Appears in no apparent distress. comfortable, Behavior is calm, cooperative, ph appropriate for age. Pain: Denies pain. Neuro: Level of Consciousness is awake, alert, obeys commands, Oriented to person, place, time, situation, Reports dizziness, weakness. Cardiovascular: Reports lightheadedness, Capillary refill < 3 seconds in bilateral fingers Patient's skin is warm and dry. Respiratory: Airway is patent Respiratory effort is even, unlabored. Musculoskeletal: Circulation, motion, and sensation intact. Range of motion: intact in all extremities. Historical: - Allergies: 10:53 fenofibrate nanocrystallized; ph 10:53 insulin degludec; ph - PMHx: 10:53 Anxiety; Diabetes - IDDM; Hypertension; ph - PSHx: 10:53 colon sx; ph - Immunization history:: Adult Immunizations unknown. - Social history:: Smoking status: Patient/guardian denies using tobacco, but has a distant history of tobacco abuse. Screenin:53 [facility] ED Fall Risk Assessment (Adult) History of falling in the last 3 months, ph including since admission No falls in past 3 months (0 pts) Confusion or Disorientation No (0 pts) Intoxicated or Sedated No (0 pts) Impaired Gait No (0 pts) Mobility Assist Device Used Yes (1 pt) Altered Elimination No (0 pt) Score/Fall Risk Level 0 - 2 = Low Risk Oriented to surroundings, Maintained a safe environment, Hourly rounding (assess needs \T\ fall precautionary measures) done. Abuse screen: Denies threats or abuse. Denies injuries from another. Nutritional screening: No deficits noted. Tuberculosis screening: No symptoms or risk factors identified. Assessment: 12:00 General: SEE TRIAGE ASSESSMENT. ph 13:30 Reassessment: Patient appears in no apparent distress at this time. Patient and/or ph family updated on plan of care and expected duration. Pain level reassessed. Patient is alert, oriented x 3, equal unlabored respirations, skin warm/dry/pink. 15:03 Reassessment: Pt has been discharged and states that he has nowhere to go since he was ss evicted from his home. Pt called a friend, Yancy who lives in [place] who told him that he can live with her temporarily, but she is not answering. Attempted to call her from ER phone, but again no answer. 15:46 Reassessment: Assisted patient to find an Uber to take him to [place], but states he ss does not want to pay that much for an Uber. [facility] and is making additional phone calls. Vital Signs: 10:49 BP 171 / 92; Pulse 62; Resp 18; Temp 97.7; Pulse Ox 98% on R/A; Weight 80 kg; Height 5 ph ft. 10 in. ; Pain 0/10; 13:30 BP 168 / 89; Pulse 64; Resp 18; Pulse Ox 99% on R/A; ph 15:00 BP 164 / 76; Pulse 61; Resp 18; Temp 98; Pulse Ox 99% on R/A; ph 10:49 Body Mass Index 25.31 (80.00 kg, 177.8 cm) ph 10:49 Pain Scale: Adult ED Course: 10:47 Patient arrived in ED. bs3 10:47 Atul Martinez MD is Attending Physician. bs3 10:49 Alyx Crowell, RN is Primary Nurse. ph 10:53 Triage completed. ph 10:53 Arm band placed on Patient placed in an exam room, on a stretcher. ph 10:54 Patient has correct armband on for positive identification. Bed in low position. Call ph light in reach. Side rails up X 1. Client placed on continuous cardiac and pulse oximetry monitoring. NIBP monitoring applied. 11:19 CT Head Brain wo Cont In Process Unspecified. EDMS 11:21 Missed attempt(s): 22 gauge in right forearm. Bleeding controlled, band aid applied, ph catheter tip intact. Missed attempt(s): 22 gauge in right forearm. Bleeding controlled, band aid applied, catheter tip intact. 11:23 XRAY Chest (1 view) In Process Unspecified. EDMS 11:33 Inserted saline lock: 20 gauge in left antecubital area, using aseptic technique. Blood ko1 collected. 15:46 No provider procedures requiring assistance completed. IV discontinued, intact, ph bleeding controlled, No redness/swelling at site. Pressure dressing applied. Administered Medications: 12:20 Drug: NS 0.9% IV 500 ml Route: IV; Rate: bolus; Site: left antecubital; ph 13:00 Follow up: IV Status: Completed infusion ph Medication: 10:54 VIS not applicable for this client. ph Outcome: 13:30 Discharge ordered by . bs3 15:46 Patient left the ED. ss 15:46 Discharged to home with friend. ph 15:46 Condition: good 15:46 Discharge instructions given to patient, Instructed on discharge instructions, follow up and referral plans. Demonstrated understanding of instructions, follow-up care. Signatures: Dispatcher [employer] EDMA Joan Simms RN RN Alyx Crowell, RN RN ph Atul Martinez MD MD bs3 Darya Antonio RN RN ko1
[2022-11-28 16:25] VITALS: BP 171/92; TEMP 97.7; O2SAT 98
--- NOTE | 2022-11-29 14:09 | EKG ---
Test Date: 2022-11-28 Test Time: 11:32:58 Setter Automatic Spinning Lathe: PH MEASUREMENT RESULTS: Intervals: Rate: 67 WA: 172 QRSD: 124 QT: 446 QTc: 471 [place]: P: WA: 172 QRS: 203 T: 170 INTERPRETIVE STATEMENTS: Normal sinus rhythm Right bundle branch block T wave abnormality, consider inferior ischemia Abnormal ECG Compared to ECG 09/04/2022 06:34:17 T-wave abnormality now present Possible ischemia now present Atrial premature complex(es) no longer present Myocardial infarct finding no longer present Electronically Signed On 11-29-22 14:07:24 CDT by Luis Armando Atkinson
== END 2022-11-28 15:46 | disposition home or self-care (01) ==
LOC: ER 10:45
DX: M62.81 Muscle weakness (generalized) (principal); E11.65 Type 2 diabetes mellitus with hyperglycemia; I12.0 Hypertensive chronic kidney disease with stage 5 chronic kidney disease or end stage renal disease; E11.22 Type 2 diabetes mellitus with diabetic chronic kidney disease; N18.5 Chronic kidney disease, stage 5; Z88.8 Allergy status to other drugs, medicaments and biological substances
CPT/HCPCS: 85025; 81001; 36415; 84484; 80053; 70450; 71045; J7040; 93005

== ENCOUNTER 2022-11-29 12:30 | Inpatient (IN) | payer OTHER ==
--- OUTSIDE RECORDS SUMMARY | 2022-11-29 12:33 | XMS REPORT | Continuity of Care Document ---
:1945 Author Organization [facility] t Address [address] [place] [address] [place] [address] Care Team Providers Name Role Phone Miller_S_AH Attending Clinician Unavailable Ajibade_O_AH Attending Clinician Unavailable Ige-Odunfernando_J_AH Attending Clinician Unavailable Ivan Contreras Attending Clinician Unavailable Ivan Contreras Attending Clinician Unavailable Miller_S_AH Admitting Clinician Unavailable Ajibade_O_AH Admitting Clinician Unavailable Ige-Odunfernando_J_AH Admitting Clinician Unavailable Ivan Contreras Admitting Clinician Unavailable Payers Payer Name Policy Type Policy Number Effective Date Expiration Date S frederick [facility] [place] - [id number] 2646-01-01 [employer] 00:00:00 (MEDICARE REPLACEMENT/ADVANT AGE - HMO) Problems Condition Condition Condition Status Onset Resolution Last Treating Co mments Source Name Details Category Date Date Treatment Clinician Date Senile Senile Problem Active [facility] purpura Purpura 10-27 Family 00:00: [...] Date Date Clinician No Known Drug Active [facility] Active [facility] Social History Smoking Status Start Date Stop Date Source Former [facility] Medications Ordered Filled Start Stop Current Ordering Indication Dosage Frequency Signature Comments Components Source Medication Medication Date Date Medication? Clinician (SIG) Name Name Asprin Ec Asp[facility] No 1 Q1D Asprin Ec [facility] Low Dose 81 Low Dose 81 Low Dose Family mg mg 81 mg Practic tablet,juan tablet,juan tablet,del e yed release yed release ayed Take 1 Take 1 release tablet tablet Take 1 every day every day tablet by oral by oral every day route. route. by oral route. hydroxyzine hydroxyzine No 2 Q12H hydroxyzin [facility] HCl 25 mg HCl 25 [...] night. metoprolol metoprolol No 1 BID metoprolol [facility] tartrate 50 tartrate 50 tartrate [...] Comments Source Height 2020-10-27 00:00:00 70 [in_i] [facility] BMI (Body Mass 2020-10-27 00:00:00 37.3 kg/m2 [facility] Family Index) Practice Body Weight 2020-10-27 00:00:00 260 [lb_av] [facility] BP Diastolic 2020-09-23 00:00:00 86 mm[Hg] [facility] Height 2020-09-23 00:00:00 70 [in_i] [facility] BMI (Body Mass 2020-09-23 00:00:00 37.3 kg/m2 [facility] Index) Practice BP Systolic 2020-09-23 00:00:00 136 mm[Hg] [facility] Body Weight 2020-09-23 00:00:00 260 [lb_av] [facility] Height/Length 2021-08-16 11:09:21 177.80 cm Measured Weight Dosing 2021-08-16 11:09:21 108.86 kg Procedures Procedure Date / Time Performed Performing Clinician [facility] e Screening for Malignant [facility] Neoplasm of Prostate Practice Extraction of Cataract [facility] Practice Removal of Colon [facility] Encounters Start End Encounter Admission Attending Care Care Encounter Source Date/Time Date/Time Type Type Clinicians Facility Department ID 2021-01-04 2021-01-04 Outpatient Miller_S_AH VFP VFP 792 [facility] 03:27:00 03:27:00 [id number] Family Practic e 2020-11-10 2020-11-10 Outpatient Ajibade_O_A VFP VFP 792 [facility] 06:52:00 06:52:00 H [id number] Family Practic e 2020-10-27 2020-10-27 Outpatient Ajibade_O_A VFP VFP [address] 01:51:00 01:51:00 H [id number] Family Practic e 2020-10-27 2020-10-27 [place] VFP [place] - [id number] [place] 00:00:00 00:00:00 Sukhwinder Carrasquillo Famil y MACHINE FITTER: [id number] Medical - Pract ic Tammi Crowder, [email or web address] [facility] [address] , Ph. 2020-10-21 2020-10-21 Outpatient Ajibade_O_A VFP VFP [id number] [facility] 08:40:00 08:40:00 H [id number] Family Practic e 2020-09-23 2020-09-23 Outpatient Ajibade_O_A VFP VFP [id number] [facility] 04:30:00 04:30:00 H [id number] Family Practic e 2020-09-23 2020-09-23 [place] VFP [place] - [id number] V [facility] 00:00:00 00:00:00 Sukhwinder Carrasquillo y MACHINE FITTER: [id number] Medical - Pract corazon Tammi Crowder, [email or web address] [facility] [address] , Ph. 2020-03-25 2020-03-25 Outpatient Ajibade_O_A VFP VFP [id number] [facility] 04:36:00 04:36:00 H [id number] Family Practic e 2020-03-25 2020-03-25 Outpatient Ajibade_O_A VFP VFP [id number] [facility] 04:36:00 04:36:00 H [id number] Family Practic e 2020-03-25 2020-03-25 Outpatient Ajibade_O_A VFP VFP [id number] [facility] 04:36:00 04:36:00 H [id number] Family Practic e 2020-03-25 2020-03-25 Outpatient Ajibade_O_A VFP VFP [id number] [facility] 04:36:00 04:36:00 H [id number] Family Practic e 2019-09-17 2019-09-17 Outpatient Ige-Odunuga VFP VFP [id number] [facility] 07:13:00 07:13:00 _J_ [id number] Family Practic e 2019-09-17 2019-09-17 [phone] 07:13:00 07:13:00 _J_AH [id number] Family Practic e 2019-07-03 2019-07-08 Inpatient 1 Ivan Contreras [facility] PSY [id number] 10:34:00 13:25:00 Ivan Contreras [facility] Results Test Description Test Time Test [...] to the main Lab for analysis. POC [id number] 07:11:51 Test Item Value Reference Range Interpretation Comments Glucose POC (test 118 mg/dL 70-115 H Notify RN or MDIf you code = Glucose POC) consider your patient critically ill, the Sj-Accu Chec k Infrom II meter should not be used for Glucos e determination. Draw a venous Glucose and send to the main Lab for analysis. POC [id number] 19:44:19 Test Item Value Reference Range Interpretation Comments Glucose POC (test 151 mg/dL 70-115 H Notify RN or MDIf you code = Glucose POC) consider your patient critically ill, the Sj-Accu Chec k Infrom II meter should not be used for Glucos e determination. Draw a venous Glucose and send to the main Lab for analysis. POC [id number] 15:05:21 Test Item Value Reference Range Interpretation Comments Glucose POC (test 119 mg/dL 70-115 H Notify RN or MDIf you code = Glucose POC) consider your patient critically ill, the Sj-Accu Chec k Infrom II meter should not be used for Glucos e determination. Draw a venous Glucose and send to the main Lab for analysis. POC [id number] 11:16:17 Test Item Value Reference Range Interpretation Comments Glucose POC (test 132 mg/dL 70-115 H Notify RN or MDIf you code = Glucose POC) consider your patient critically ill, the Sj-Accu Chec k Infrom II meter should not be used for Glucos e determination. Draw a venous Glucose and send to the main Lab for analysis. POC [id number] 06:17:22 Test Item Value Reference Range Interpretation Comments Glucose POC (test 121 mg/dL 70-115 H Notify RN or MDIf you code = Glucose POC) consider your patient critically ill, the Sj-Accu Chec k Infrom II meter should not be used for Glucos e determination. Draw a venous Glucose and send to the main Lab for analysis. POC [id number] 20:10:13 Test Item Value Reference Range Interpretation Comments Glucose POC (test 133 mg/dL 70-115 H If you con hematologist oncologist your code = Glucose POC) patient critically ill, the Sj-Accu Check Infrom II meter should not be used for Glucose determination. Draw a venous Glucose and send to the main Lab for analysis. POC [id number] 06:13:49 Test Item Value Reference Range Interpretation Comments Glucose POC (test 116 mg/dL 70-115 H If you con hematologist oncologist your code = Glucose POC) patient critically ill, the Sj-Accu Check Infrom II meter should not be used for Glucose determination. Draw a venous Glucose and send to the main Lab for analysis. POC [id number] 19:55:46 Test Item Value Reference Range Interpretation Comments Glucose POC (test 121 mg/dL 70-115 H If you con hematologist oncologist your code = Glucose POC) patient critically ill, the Sj-Accu Check Infrom II meter should not be used for Glucose determination. Draw a venous Glucose and send to the main Lab for analysis. POC [id number] 16:21:40 Test Item Value Reference Range Interpretation Comments Glucose POC (test 126 mg/dL 70-115 H Notify RN or MDIf you code = Glucose POC) consider your patient critically ill, the Sj-Accu Chec k Infrom II meter should not be used for Glucos e determination. Draw a venous Glucose and send to the main Lab for analysis. POC [id number] 12:10:14 Test Item Value Reference Range Interpretation Comments Glucose POC (test 138 mg/dL 70-115 H Notify RN or MDIf you code = Glucose POC) consider your patient critically ill, the Sj-Accu Chec k Infrom II meter should not be used for Glucos e determination. Draw a venous Glucose and send to the main Lab for analysis. POC [id number] 06:38:10 Test Item Value Reference Range Interpretation Comments Glucose POC (test 112 mg/dL 70-115 If you con hematologist oncologist your code = Glucose POC) patient critically ill, the Sj-Accu Check Infrom II meter should not be used for Glucose determination. Draw a venous Glucose and send to the main Lab for analysis. POC [id number] 19:46:42 Test Item Value Reference Range Interpretation Comments Glucose POC (test 107 mg/dL 70-115 If you con hematologist oncologist your code = Glucose POC) patient critically ill, the Sj-Accu Check Infrom II meter should not be used for Glucose determination. Draw a venous Glucose and send to the main Lab for analysis. RPR [id number] 15:31:56 Test Item Value Reference Range Interpretation Comments RPR Qual (test code = RPR Qual) Non-Reactive Non-Reactive Reactive Control (test code = Reactive Reactive Control) Weak Reactive Control (test Weak Reactive code = Weak Reactive Control) Non-Reactive Control (test code Non-Reactive = Non-Reactive Control) Lot # (test code = Lot #) [id number] Expiration Dt (test code = 05-29-20 N Expiration Dt) POC [id number] 15:06:05 Test Item Value Reference Range Interpretation Comments Glucose POC (test 118 mg/dL 70-115 H Notify RN or MDIf you code = Glucose POC) consider your patient critically ill, the Sj-Accu Chec k Infrom II meter should not be used for Glucos e determination. Draw a venous Glucose and send to the main Lab for analysis. POC [id number] 11:12:35 Test Item Value Reference Range Interpretation Comments Glucose POC (test 146 mg/dL 70-115 H If you con hematologist oncologist your code = Glucose POC) patient critically ill, the Sj-Accu Check Infrom II meter should not be used for Glucose determination. Draw a venous Glucose and send to the main Lab for analysis. POC [id number] 07:42:11 Test Item Value Reference Range Interpretation Comments Glucose POC (test 122 mg/dL 70-115 H If you con hematologist oncologist your code = Glucose POC) patient critically ill, the Sj-Accu Check Infrom II meter should not be used for Glucose determination. Draw a venous Glucose and send to the main Lab for analysis. POC [id number] 19:17:06 Test Item Value Reference Range Interpretation Comments Glucose POC (test 114 mg/dL 70-115 If you con hematologist oncologist your code = Glucose POC) patient critically ill, the Sj-Accu Check Infrom II meter should not be used for Glucose determination. Draw a venous Glucose and send to the main Lab for analysis. Urinalysis [id number] 12:27:32 Test Item Value Reference Range Interpretation Comments UA WBC (test code = UA WBC) 0-5 0-5 UA RBC (test code = UA RBC) 0-5 0-5 UA Squam Epithelial (test code = UA 0-5 Squam Epithelial) Comprehensive Metabolic [id number] 12:12:02 Test Item Value Reference Range Interpretation [...] A/G 1.6 ratio N Ratio) Comprehensive Metabolic [id number] 12:12:02 Test Item Value Reference Range Interpretation [...] National Kidney Foundation, http://nkdep.ni h.gov Comprehensive Metabolic [id number] 12:12:02 Test Item Value Reference Range Interpretation [...] ag e have not been validated by [facility] MDRD study and should be interpreted wit [...] ag e have not been validated by [facility] MDRD study and should be interpreted wit h caution. eGFR R esult Interpretation: eGFR > or = 60 is in the Normal RangeeGF R < 60 may mean kid kyle diseaseeGFR < 1 5 may mean kidney failure Rang es recommended by the National Kidney Foundation, http://nkdep.ni h.gov Urine Drug [id number] 12:01:40 Test Item Value Reference Range Interpretation [...] if desired . Complete Blood Count with [id number] 11:38:14 Test Item Value Reference Range Interpretation [...] code = IPF) 0 % N Automated [id number] 11:38:14 Test Item Value Reference Range Interpretation Comments Neutro Auto (test code = Neutro 76.4 % 36.0-70.0 H Auto) Lymph Auto (test code = Lymph Auto) 15.8 % 12.0-44.0 Smith Auto (test code = Smith Auto) 6.7 % 0.0-11.0 Eos, Auto (test code = Eos, Auto) 0.3 % 0.0-7.0 Basophil Auto (test code = Basophil 0.4 % 0.0-2.0 Auto) Neutro Absolute (test code = Neutro 5.3 x10 1.6-7.4 Absolute) Lymph Absolute (test code = Lymph 1.09 x10 .50-4.60 Absolute) Smith Absolute (test code = Smith .46 x10 .00-1.20 Absolute) Eos Absolute (test code = Eos 0.02 x10 0.00-0.74 Absolute) Baso Absolute (test code = Baso 0.03 x10 0.00-0.21 Absolute) IG [id number] 11:38:14 Test Item Value Reference Range Interpretation Comments IG (test code = IG) 0.4 % 0.0-5.0 IG Abs (test code = IG Abs) 0 x10 N Urinalysis with Culture, if [id number] 11:37:19 Test Item Value Reference Range Interpretation [...] Micro Ind?) rule GL_SJM_UA_MICRO _IN D POC [id number] 11:07:06 Test Item Value Reference Range Interpretation Comments Glucose POC (test 123 mg/dL 70-115 H If you con hematologist oncologist your code = Glucose POC) patient critically ill, the Sj-Accu Check Infrom II meter should not be used for Glucose determination. Draw a venous Glucose and send to the main Lab for analysis.
[2022-11-29 13:12] LABS: Specific Gravity 1.015 (1.005-1.030); Urine Bacteria None Seen /HPF (<20); Urine Bilirubin NEGATIVE (Negative); Urine Blood 1+ (Negative); Urine Clarity Clear (Clear); Urine Color Light-Yellow (Yellow); Urine Glucose 3+ (Negative); Urine Mucus Slight /HPF (None Seen); Urine Protein 3+ (Negative); Urine RBC <5 /HPF (None Seen); Urine Urobilinogen Normal (Normal)
--- NOTE | 2022-11-29 13:17 | RAD REPORT ---
EXAM DESCRIPTION: Barbara Single View11/29/2022 1:04 pm CLINICAL HISTORY: cough COMPARISON: November 28, 2021 FINDINGS: The lungs appear clear of acute infiltrate. The heart is normal size. Chronic elevation l eft hemidiaphragm IMPRESSION: No acute abnormalities displayed
[2022-11-29 13:33] LABS: Absolute Lymphocytes (CBC) 1.1 K/uL (0.7-4.9); Hematocrit 41.5 % (39.6-49.0); Lymphocytes % 17.1 % (15.3-44.8); MCV 88.3 fL (80-100); MPV 9.5 fL (7.6-11.3)
[2022-11-29 14:09] LABS: Albumin 3.4 g/dL (3.4-5.0); Bilirubin Direct 0.1 mg/dL (0-0.2); Bilirubin Total 0.6 mg/dL (0.2-1.0); Magnesium 2.2 mg/dL (1.6-2.4); Potassium 5.1 mEq/L (3.5-5.1); Protein, Total 7.6 g/dL (6.4-8.2); Troponin High Sensitivity 16.9 pg/mL (<58.9)
[2022-11-29] MEDS ORDERED: NA CHLORIDE 0.9% 1,000 ML ONE (14:42)
--- NOTE | 2022-11-29 16:26 | ER ---
Nurse's Notes [facility] Name: Arun Mccall Age: 77 yrs Sex: Male : 1945 Arrival Date: 11/29/2022 Time: 12:[address] Private MD: Diagnosis: Weakness;Syncope Near;Unspecified kidney failure-chronic;Dehydration;Type 1 diabetes mellitus with hyperglycemia;Unspecified cirrhosis of liver Presentation: 11/29 12:36 Chief complaint: EMS states: [place]ed out [place]iness from ld1 patient walking too far. Upon arrival patient reports walking a long distance - causing dizziness. Denies pain. EMS reports possibly being homeless. Coronavirus screen: At this time, the client does not indicate any symptoms associated with coronavirus-19. Ebola Screen: No symptoms or risks identified at this time. Initial Sepsis Screen: Does the patient meet any 2 criteria? No. Patient's initial sepsis screen is negative. Does the patient have a suspected source of infection? No. Patient's initial sepsis screen is negative. Risk Assessment: Do you want to hurt yourself or someone else? Patient reports no desire to harm self or others. Onset of symptoms was November 29, 2022 at 12:38. 12:36 Method Of Arrival: EMS: [facility] ld1 12:36 Acuity: CHAYITO 3 ld1 Triage Assessment: 12:38 General: Appears in no apparent distress. comfortable, Behavior is calm, cooperative, ld1 appropriate for age. Pain: Denies pain. EENT: No signs and/or symptoms were reported regarding the EENT system. Reports. Neuro: Level of Consciousness is awake, alert, obeys commands, Oriented to person, place, time, situation. Cardiovascular: Capillary refill < 3 seconds Patient's skin is warm and dry. Respiratory: Airway is patent Respiratory effort is even, unlabored. GI: Abdomen is flat, non-distended. Historical: - Allergies: 12:38 fenofibrate nanocrystallized; ld1 12:38 insulin degludec; ld1 - PMHx: 12:38 Anxiety; Diabetes - IDDM; Hypertension; ld1 - PSHx: 12:38 colon sx; ld1 - Immunization history:: Adult Immunizations up to date, Client reports receiving the 2nd dose of the Covid vaccine. - Social history:: Smoking status: Patient denies any tobacco usage or history of. Patient/guardian denies using alcohol. Screenin:45 [facility] ED Fall Risk Assessment (Adult) History of falling in the last 3 months, ld1 including since admission No falls in past 3 months (0 pts). Abuse screen: Denies threats or abuse. Denies injuries from another. Nutritional screening: No deficits noted. Tuberculosis screening: No symptoms or risk factors identified. Assessment: 14:45 Reassessment: See triage assessment. ld1 14:45 Reassessment: Patient appears in no apparent distress at this time. No changes from ld1 previously documented assessment. Patient and/or family updated on plan of care and expected duration. Pain level reassessed. Patient is alert, oriented x 3, equal unlabored respirations, skin warm/dry/pink. 16:45 Reassessment: Patient appears in no apparent distress at this time. No changes from ld1 previously documented assessment. Patient and/or family updated on plan of care and expected duration. Pain level reassessed. Patient is alert, oriented x 3, equal unlabored respirations, skin warm/dry/pink. 18:03 Reassessment: Patient appears in no apparent distress at this time. No changes from ld1 previously documented assessment. Patient and/or family updated on plan of care and expected duration. Pain level reassessed. 19:07 Reassessment: ASSUMED CARE OF PT. PT RESTING IN BED. NO DISTRESS NOTED. PT STATES HE IS jj7 HUNGRY. SANDWICH AND,CRACKER AND JUICE PROVIDED. INFORMED PT OF PLAN OF CARE. WILL CALL REPORT AND MOVE PT UP TO ROOM. VS STABLE. Vital Signs: 12:36 BP 126 / 76; Pulse 85; Resp 18; Temp 99.1(O); Pulse Ox 97% on R/A; Weight 83.91 kg; ld1 Height 5 ft. 10 in. ; Pain 0/10; 14:45 BP 131 / 72; Pulse 64; Resp 18; Pulse Ox 97% on R/A; Pain 0/10; ld1 15:45 BP 179 / 86; Pulse 69; Resp 24; Pulse Ox 97% on R/A; ld1 18:03 BP 165 / 74; Pulse 62; Resp 18; Pulse Ox 98% on R/A; ld1 19:08 BP 152 / 72; Pulse 59; Resp 19; Pulse Ox 98% ; jj7 12:36 Body Mass Index 26.54 (83.91 kg, 177.8 cm) ld1 12:36 Pain Scale: Adult ld1 14:45 Pain Scale: Adult ld1 Semaj Coma Score: 16:14 Eye Response: spontaneous(4). Motor Response: obeys commands(6). Verbal Response: tom oriented(5). Total: 15. NIH Stroke Scale Scores: 16:14 NIHSS Score: 0 tom ED Course: 12:35 Patient arrived in ED. ld1 12:36 Sumeet Moody MD is Attending Physician. tom 12:38 Triage completed. ld1 13:06 XRAY Chest (1 view) In Process Unspecified. EDMS 13:25 Inserted saline lock: 20 gauge in right forearm, using aseptic technique. Blood zm collected. 13:27 Basic Metabolic Panel Sent. zm 13:27 CBC with Diff Sent. zm 13:27 LFT's Sent. zm 13:27 Magnesium Sent. zm 13:27 NT PRO-BNP Sent. zm 13:27 PT-INR Sent. zm 13:28 Troponin HS Sent. zm 13:28 Lipase Sent. zm 14:45 Sima Botello, ASTRID is Primary Nurse. ld1 14:46 No provider procedures requiring assistance completed. ld1 14:46 Patient has correct armband on for positive identification. Placed in gown. Bed in low ld1 position. Call light in reach. Side rails up X2. groundwater monitoring technician on. Pulse ox on. NIBP on. Door closed. Noise minimized. Warm blanket given. 16:23 Lei Marin MD is Hospitalizing Provider. [facility] 16:44 CT Stone Protocol In Process Unspecified. EDMS 17:16 Brain Wo Cont MRI In Process Unspecified. EDMS 19:08 Patient notified of wait time. jj7 19:42 Patient admitted, IV remains in place. jj7 Administered Medications: 14:44 Drug: NS 0.9% IV 1000 ml Route: IV; Rate: 1 bolus; Site: right forearm; ld1 16:28 Drug: foLIC Acid IVPB 1 mg Route: IVPB; Site: right antecubital; ld1 19:43 Follow up: Response: No adverse reaction jj7 16:28 Drug: Aspirin PO Chewable Tablet 81 mg Route: PO; ld1 19:43 Follow up: Response: No adverse reaction jj7 Medication: 14:45 VIS not applicable for this client. ld1 Outcome: 16:25 Decision to Hospitalize by Provider. tom 19:41 Admitted to Med/surg accompanied by tech, via wheelchair, room 230, Report called to nishi ALLEN RN 19:41 Condition: good 20:04 Patient left the ED. nishi NIH Stroke Scale - NIH Stroke Score Date: 11/29/2022 Time: 16:14 Total Score = 0 10. Dysarthria (speech clarity - read or repeat words) - 0(Normal) 11. Extinction and Inattention (visual/tactile/auditory/spatial/personal) - 0(No abnormality) 1a. Level of Consciousness (LOC) - 0(Alert) 1b. Level of Consciousness (LOC) (Month \T\ Age) - 0(Both) 1c. LOC Commands (Open \T\ Closes Eyes/Shipping Manager) - 0(Both) 2. Best Gaze (Lateral Gaze Paresis) - 0(Normal) 3. Visual Field Loss - 0(No visual loss) 4. Facial Palsy - 0(Normal) 5a. Left Arm: Motor (10-second hold) - 0(No drift) 5b. Right Arm: Motor (10-second hold) - 0(No drift) 6a. Left Leg: Motor (5-second hold - always test supine) - 0(No drift) 6b. Right Leg: Motor (5-second hold - always test supine) - 0(No drift) 7. Limb Ataxia (finger/nose \T\ heel/feliciano - test with eyes open) - 0(Absent) 8. Sensory Loss (pinprick arms/legs/face) - 0(Normal) 9. Best Language: Aphasia (description/naming/reading) - 0(No aphasia) Initials: [facility] Signatures: Dispatcher [employer] Sumeet Gregg MD MD cha Sims, Lauren, RN RN ld1 Michelle Meyers Juwairiyah, RN RN jj7
--- NOTE | 2022-11-29 16:26 | EDPHYS ---
Physician Documentation [facility] Name: Arun Mccall Age: 77 yrs Sex: Male : 1945 Arrival Date: 11/29/2022 Time: 12:[address] Private MD: KATE Physician Sumeet Moody HPI: 11/29 16:12 This 77 yrs old Male presents to ER via EMS with complaints of Dizziness. tom 16:12 The patient presents with dizziness, feeling faint, generalized weakness. Onset: The tom symptoms/episode began/occurred 1 day(s) ago. Context: occurred at home, at a store. Modifying factors: The symptoms are alleviated by nothing, the symptoms are aggravated by nothing. Associated signs and symptoms: Pertinent positives: palpitations. Severity of symptoms: At their worst the symptoms were mild moderate in the emergency department the symptoms have improved mildly. Patient's baseline: Neuro: alert and fully oriented. The patient has not experienced similar symptoms in the past. Historical: - Allergies: 12:38 fenofibrate nanocrystallized; ld1 12:38 insulin degludec; ld1 - PMHx: 12:38 Anxiety; Diabetes - IDDM; Hypertension; ld1 - PSHx: 12:38 colon sx; ld1 - Immunization history:: Adult Immunizations up to date, Client reports receiving the 2nd dose of the Covid vaccine. - Social history:: Smoking status: Patient denies any tobacco usage or history of. Patient/guardian denies using alcohol. ROS: 16:14 Constitutional: Negative for fever, chills, and weight loss, Eyes: Negative for injury, tom pain, redness, and discharge, ENT: Negative for injury, pain, and discharge, Neck: Negative for injury, pain, and swelling, Cardiovascular: Negative for chest pain, palpitations, and edema, Respiratory: Negative for shortness of breath, cough, wheezing, and pleuritic chest pain, Abdomen/GI: Negative for abdominal pain, nausea, vomiting, diarrhea, and constipation, Back: Negative for injury and pain, : Negative for injury, bleeding, discharge, and swelling, MS/Extremity: Negative for injury and deformity, Skin: Negative for injury, rash, and discoloration, Psych: Negative for depression, anxiety, suicide ideation, homicidal ideation, and hallucinations, Allergy/Immunology: Negative for hives, rash, and allergies, Endocrine: Negative for neck swelling, polydipsia, polyuria, polyphagia, and marked weight changes, Hematologic/Lymphatic: Negative for swollen nodes, abnormal bleeding, and unusual bruising. 16:14 Neuro: Positive for dizziness, weakness. Exam: 16:14 Constitutional: This is a well developed, well nourished patient who is awake, alert, tom and in no acute distress. Head/Face: Normocephalic, atraumatic. Eyes: Pupils equal round and reactive to light, extra-ocular motions intact. Lids and lashes normal. Conjunctiva and sclera are non-icteric and not injected. Cornea within normal limits. Periorbital areas with no swelling, redness, or edema. ENT: Nares patent. No nasal discharge, no septal abnormalities noted. Tympanic membranes are normal and external auditory canals are clear. Oropharynx with no redness, swelling, or masses, exudates, or evidence of obstruction, uvula midline. Mucous membranes moist. Neck: Trachea midline, no thyromegaly or masses palpated, and no cervical lymphadenopathy. Supple, full range of motion without nuchal rigidity, or vertebral point tenderness. No Meningismus. Chest/axilla: Normal chest wall appearance and motion. Nontender with no deformity. No lesions are appreciated. Cardiovascular: Regular rate and rhythm with a normal S1 and S2. No gallops, murmurs, or rubs. Normal PMI, no JVD. No pulse deficits. Respiratory: Lungs have equal breath sounds bilaterally, clear to auscultation and percussion. No rales, rhonchi or wheezes noted. No increased work of breathing, no retractions or nasal flaring. Abdomen/GI: Soft, non-tender, with normal bowel sounds. No distension or tympany. No guarding or rebound. No evidence of tenderness throughout. Back: No spinal tenderness. No costovertebral tenderness. Full range of motion. Skin: Warm, dry with normal turgor. Normal color with no rashes, no lesions, and no evidence of cellulitis. MS/ Extremity: Pulses equal, no cyanosis. Neurovascular intact. Full, normal range of motion. Psych: Awake, alert, with orientation to person, place and time. Behavior, mood, and affect are within normal limits. 16:14 ECG was reviewed by the Attending Physician. 16:20 Cardiovascular: Rate: normal, Rhythm: regular, Pulses: no pulse deficits are tom appreciated, Heart sounds: normal, Edema: JVD: is not appreciated. Vital Signs: 12:36 BP 126 / 76; Pulse 85; Resp 18; Temp 99.1(O); Pulse Ox 97% on R/A; Weight 83.91 kg; ld1 Height 5 ft. 10 in. ; Pain 0/10; 14:45 BP 131 / 72; Pulse 64; Resp 18; Pulse Ox 97% on R/A; Pain 0/10; ld1 15:45 BP 179 / 86; Pulse 69; Resp 24; Pulse Ox 97% on R/A; ld1 18:03 BP 165 / 74; Pulse 62; Resp 18; Pulse Ox 98% on R/A; ld1 19:08 BP 152 / 72; Pulse 59; Resp 19; Pulse Ox 98% ; jj7 12:36 Body Mass Index 26.54 (83.91 kg, 177.8 cm) ld1 12:36 Pain Scale: Adult ld1 14:45 Pain Scale: Adult ld1 NIH Stroke Scale Scores: 16:14 NIHSS Score: 0 tom Cumming Coma Score: 16:14 Eye Response: spontaneous(4). Motor Response: obeys commands(6). Verbal Response: tom oriented(5). Total: 15. MDM: 12:36 Patient medically screened. tom 16:17 Differential Diagnosis altered mental status. Differential diagnosis: cardiac tom arrhythmia, cerebrovascular accident, GI bleed, idiopathic syncope, pseudo seizure, seizure, sepsis, vasovagal episode, cardiac arrhythmia, CVA, generalized weakness, GI bleed, hypovolemia, idiopathic dizziness, near-syncope, syncope, TIA. Data reviewed: vital signs, nurses notes, lab test result(s), EKG, radiologic studies, CT scan, plain films. Consideration of Admission/Observation Patient was admitted/placed on observation. Escalation of care including admission/observation considered. I considered the following discharge prescriptions or medication management in the emergency department Medications were administered in the Emergency Department. See MAR. Independent interpretation of the following test(s) in the Emergency Department EKG: See my EKG interpretation above. Test considered but Not performed: Ultrasound no 2 d echo w dopople. Care significantly affected by the following chronic conditions: Diabetes, Hypertension, anxiey. Counseling: I had a detailed discussion with the patient and/or guardian regarding: the historical points, exam findings, and any diagnostic results supporting the discharge/admit diagnosis, the presence of at least one elevated blood pressure reading (>120/80) during this emergency department visit, lab results, radiology results, the need for further work-up and treatment in the hospital. 11/29 12:37 Order name: Basic Metabolic Panel; Complete Time: 15:47 tom 11/29 12:37 Order name: CBC with Diff; Complete Time: 15:47 tom 11/29 12:37 Order name: LFT's; Complete Time: 15:47 tom 11/29 12:37 Order name: Magnesium; Complete Time: 15:47 tom 11/29 12:37 Order name: NT PRO-BNP; Complete Time: 15:47 tom 11/29 12:37 Order name: PT-INR; Complete Time: 15:47 tom 11/29 12:37 Order name: Troponin HS; Complete Time: 15:47 tom 11/29 12:37 Order name: Lipase; Complete Time: 15:47 tom 11/29 12:37 Order name: Urinalysis w/ reflexes; Complete Time: 15:47 tom 11/29 17:27 Order name: Magnesium EDMS 11/29 17:27 Order name: Phosphorus EDMS 11/29 17:27 Order name: T4 Free EDMS 11/29 17:27 Order name: Thyroid Stimulating Hormone EDMS 11/29 17:27 Order name: Urinalysis w/ reflexes EDMS 11/29 17:27 Order name: Basic Metabolic Panel EDMS 11/29 17:27 Order name: Basic Metabolic Panel EDMS 11/29 17:27 Order name: CBC with Automated Diff EDMS 11/29 17:27 Order name: CBC with Automated Diff EDMS 11/29 18:42 Order name: AMMONIA tom 11/29 12:37 Order name: XRAY Chest (1 view); Complete Time: 15:47 tom 11/29 15:47 Order name: Brain Wo Cont MRI; Complete Time: 18:41 bd 11/29 15:49 Order name: Carotid Artery Bilateral US tom 11/29 15:49 Order name: CT Stone Protocol; Complete Time: 18:41 tom 11/29 17:25 Order name: ERT ORTHOSTATIC V/S EDMS 11/29 17:25 Order name: ERT ORTHOSTATIC V/S EDMS 11/29 17:25 Order name: ERT ORTHOSTATIC V/S EDFL 11/29 17:25 Order name: Echo with Doppler EDFL 11/29 12:37 Order name: EKG; Complete Time: 12:38 [facility] 11/29 17:27 Order name: 60g Consistent Carbohydrate (ADA 1800/1999) [facility] 11/29 12:37 Order name: Cardiac monitoring; Complete Time: 13:22 [facility] 11/29 12:37 Order name: EKG - Nurse/Tech; Complete Time: 13:22 [facility] 11/29 12:37 Order name: IV Saline Lock; Complete Time: 13:22 [facility] 11/29 12:37 Order name: Labs collected and sent; Complete Time: 13:22 [facility] 11/29 12:37 Order name: O2 Per Protocol; Complete Time: 13: [facility] 11/29 12:37 Order name: O2 Sat Monitoring; Complete Time: 13: [facility] 11/29 13:35 Order name: Labs - recollect needed: recollect light blue,fill to line; Complete Time: bd 14:44 EC:14 Rate is 68 beats/min. Rhythm is regular. QRS Pass [place] is Normal. [place] interval is normal. QRS tom interval is normal. QT interval is normal. No Q waves. T waves are Normal. No ST changes noted. Clinical impression: NSR w/ Non-specific ST/T Changes, Abnormal EKG without significant change, and No evidence of ischemia. Interpreted by me. Reviewed by me. Administered Medications: 14:44 Drug: NS 0.9% IV 1000 ml Route: IV; Rate: 1 bolus; Site: right forearm; ld1 16:28 Drug: foLIC Acid IVPB 1 mg Route: IVPB; Site: right antecubital; ld1 19:43 Follow up: Response: No adverse reaction jj7 16:28 Drug: Aspirin PO Chewable Tablet 81 mg Route: PO; ld1 19:43 Follow up: Response: No adverse reaction jj7 Disposition Summary: 11/29/22 16:25 Hospitalization Ordered Hospitalization Status: Observation tom Provider: Lei Marin cha Location: Telemetry/MedSurg (observation) tom Condition: Fair tom Problem: new tom Symptoms: have improved tom Bed/Room Type: Standard tom Room Assignment: 230(11/29/22 17:47) dw Diagnosis - Weakness tom - Syncope Near tom - Unspecified kidney failure - chronic tom - Dehydration tom - Type 1 diabetes mellitus with hyperglycemia tom - Unspecified cirrhosis of liver tom Forms: - Medication Reconciliation Form tom - SBAR form tom NIH Stroke Scale - NIH Stroke Score Date: 11/29/2022 Time: 16:14 Total Score = 0 10. Dysarthria (speech clarity - read or repeat words) - 0(Normal) 11. Extinction and Inattention (visual/tactile/auditory/spatial/personal) - 0(No abnormality) 1a. Level of Consciousness (LOC) - 0(Alert) 1b. Level of Consciousness (LOC) (Month \T\ Age) - 0(Both) 1c. LOC Commands (Open \T\ Closes Eyes/Optics Technical Officer) - 0(Both) 2. Best Gaze (Lateral Gaze Paresis) - 0(Normal) 3. Visual Field Loss - 0(No visual loss) 4. Facial Palsy - 0(Normal) 5a. Left Arm: Motor (10-second hold) - 0(No drift) 5b. Right Arm: Motor (10-second hold) - 0(No drift) 6a. Left Leg: Motor (5-second hold - always test supine) - 0(No drift) 6b. Right Leg: Motor (5-second hold - always test supine) - 0(No drift) 7. Limb Ataxia (finger/nose \T\ heel/feliciano - test with eyes open) - 0(Absent) 8. Sensory Loss (pinprick arms/legs/face) - 0(Normal) 9. Best Language: Aphasia (description/naming/reading) - 0(No aphasia) Initials: [facility] Signatures: Dispatcher [employer] EDMS Christy Carrion Diana, RN RN dw Anderson, Corey, MD MD cha Sims, Lauren, RN RN ld1 Melissa Sepulveda RN jj7 Corrections: (The following items were deleted from the chart) 12:47 12:38 Head Brain Wo Cont+CT.RAD.BRZ ordered. EDMS EDMS 17:15 15:50 MR STROKE PROTOCOL+MRI.RAD.BRZ ordered. EDMS EDMS 17:47 16:25 tom castellanos
[2022-11-29] MEDS ORDERED: ASPIRIN 81 MG CHEWABLE TABLET ONE (16:30)
[2022-11-29] MEDS ORDERED: FOLIC ACID 5 MG/ML VIAL ONE (16:30)
--- NOTE | 2022-11-29 17:05 | RAD REPORT ---
EXAM DESCRIPTION: CT - Stone Protocol - 11/29/2022 4:43 pm CLINICAL HISTORY: Abdominal pain. Flank pain COMPARISON: None. TECHNIQUE: Computed axial tomography of the abdomen pelvis was obtained without oral or IV contrast. Lack of IV and oral contrast limits evaluation of solid organs, appendix, bowel, and vessels. Talamantes l reformatted images were obtained and reviewed. All CT scans are performed using dose optimization technique as appropriate and may include automated exposure control or mA/KV adjustment according to patient size. FINDINGS: Cirrhotic liver. Elevation left hemidiaphragm. Borderline splenomegaly Pancreas and left adrenal appear grossly normal. 3.8 centimeter fatty mass right adrenal gland likely benign Tiny nonobstructing renal calculi. No hydronephrosis Small cystic renal mass is nonspecific without IV contrast. Left renal cortical thinning may be secon you prior inflammation. Partial colon resection. No evidence of diverticulitis. Moderate stool within the rectosigmoid colon. Atherosclerotic disease. Spondylosis lumbar spine Left ventral hernia at the level of the iliac crests it contains a loop of nondilated small bowel. An additional left ventral hernia within the lower pelvis contains another loop of nondilated bowel. IMPRESSION: Tiny nonobstructing renal calculi Cirrhosis Ventral hernias containing nondilated bowel
[2022-11-29] MEDS ORDERED: HYDROCODONE/APAP 5/325 MG TAB PO PRN (17:18)
[2022-11-29] MEDS ORDERED: ACETAMINOPHEN 325 MG TABLET PO PRN (17:18)
[2022-11-29] MEDS ORDERED: ONDANSETRON 4 MG/2 ML VIAL IV PRN (17:25)
--- NOTE | 2022-11-29 17:26 | P.HP ---
Certification for Inpatient Patient admitted to: Observation With expected LOS: <2 Midnights Patient will require the following post-hospital care: None Practitioner: I am a practitioner with admitting privileges, knowledge of patient current condition, hospital course, and medical plan of care. Services: Services provided to patient in accordance with Admission requirements found in Title 42 Section 412.3 of the Code of Federal Regulations Patient History Date of Service: 11/29/22 Reason for admission: Near syncope History of Present Illness: Patient is a 77-year-old male with a past medical history significant for anxiety disorder, DM 2, hypertension who presents with complaint of near syncope. Patient reported that his been having episodes of dizziness for quite some time now. Patient is a poor historian and unable to provide accurate history. Patient reported that dizziness became worse yesterday and today while at a store patient had a fall due to dizziness. Patient reported that he fell on his knees, did not hit his head or lost consciousness. Patient reported associated signs and symptoms of chills, weakness, fatigue and palpitations. Patient denies any other signs and symptoms. Symptoms are aggravated or relieved by nothing. Patient decided to present to the hospital for medical evaluation. Of note, patient reported that she was having diarrhea but she took Kaopectate and has not had any episode of diarrhea since. Allergies fenofibrate nanocrystallized [From Tricor] Allergy (Mild, Verified 05/17/19 08:35) Unknown insulin degludec [From Tresiba FlexTouch U-100] Adverse Reaction (Intermediate, Verified 05/17/19 08:35) Anaphylaxis Home Medications: Metoprolol Tartrate [Lopressor*] 25 mg PO BID 01/07/15 Multivitamin [Multivitamins] 1 each PO DAILY 01/07/15 Aspirin [Lo-Dose Aspirin EC] 81 mg PO DAILY 05/17/19 Insulin Degludec [Tresiba] 14 units SQ BEDTIME 05/17/19 Insulin Degludec [Tresiba] 26 units SQ DAILY 05/17/19 - Past Medical/Surgical History Diabetic: Yes -: Diabetes mellitus type 2 -: Hypertension -: Chronic kidney disease stage 3 -: colon surgery - Family History Family History: Reviewed- Non-Contributory - Family History Father -: Heart disease - Social History Smoking Status: Never smoker Alcohol use: No CD- Drugs: No Caffeine use: Yes Place of Residence: Home Review of Systems General: Chills, Weakness, Other (Fatigue ) Eyes: Unremarkable ENT: Unremarkable Respiratory: Unremarkable Cardiovascular: Palpitations Gastrointestinal: Unremarkable Genitourinary: Unremarkable Musculoskeletal: Unremarkable Integumentary: Unremarkable Neurological: Weakness Lymphatics: As per HPI Physical Examination - Physical Exam General: Alert, In no apparent distress, Oriented x3 HEENT: Atraumatic, PERRLA, Mucous membr. moist/pink, EOMI, Sclerae nonicteric Neck: Supple, 2+ carotid pulse no bruit, No LAD, Without JVD or thyroid abnormality Respiratory: Normal air movement, Diminished Cardiovascular: No edema, Regular rate/rhythm, Normal S1 S2 Capillary refill: <2 Seconds Gastrointestinal: Normal bowel sounds, Non-distended, No tenderness Musculoskeletal: No clubbing, No swelling, No tenderness Integumentary: No rashes, No significant lesion Neurological: Normal speech, Normal tone, Normal affect Lymphatics: No axilla or inguinal lymphadenopathy - Studies Laboratory Data (last 24 hrs) 11/29/22 14:48: PT 11.0, INR 1.00 11/29/22 13:25: WBC 6.30, Hgb 13.7, Hct 41.5, Plt Count 171 11/29/22 13:25: Sodium 132 L, Potassium 5.1, BUN 37 H, Creatinine 2.68 H, Glucose 204 H, Magnesium 2.2, Total Bilirubin 0.6, AST 20, ALT 20, Alkaline Phosphatase 81, Lipase 99 H Assessment and Plan - Plan --- Near syncope. MRI brain negative for any intracranial abnormality. Echocardiogram pending to assess cardiac structures and function. Carotid Doppler pending to rule out any carotid artery stenosis. We will get some orthostatic vital signs. Fall precautions. Continue supportive care. --DM2. BS monitor with sliding scale insulin. --Anxiety disorder. Continue home medication. --Hypertension. Poorly controlled. Continue home medications and hydralazine as needed. -- DANIEL on CKD 3B. Likely prerenal--secondary to dehydration from diarrhea. Nephrology consulted. Will await further recommendations. -- Diarrhea. Resolved. Continue supportive care. --DVT prophylaxis with Lovenox subQ. Discharge Plan: Home Plan to discharge in: 48 Hours - Advance Directives Does patient have a Living Will: No Does patient have a Durable POA for Healthcare: No - Code Status/Comfort Care Code Status Assessed: Yes Physician Review: Patient Assessed, Agree with Above Assessment and Plan Critical Care: No
--- NOTE | 2022-11-29 17:33 | RAD REPORT ---
EXAM DESCRIPTION: MRI - Brain Wo Cont - 11/29/2022 5:21 pm CLINICAL HISTORY: Dizziness COMPARISON: Head CT November 28, 2022 TECHNIQUE: Axial, sagittal, and coronal magnetic resonance images of the brain were obtained. FINDINGS: Mild signal within periventricular, deep and subcortical white matter probably ischemic ch anges secondary to small vessel disease [id number] cerebral atrophy Diffusion-weighted/ADC mapping does not reveal evidence of acute infarction. The ventricles are normal caliber. An extra-axial fluid collection is not noted. Fluid within the sinuses/mastoids is not seen IMPRESSION: No acute intracranial abnormality noted
[2022-11-29] MEDS: ENOXAPARIN 40 MG/0.4 ML SQ SCH (18:00)
[2022-11-29 19:26] LABS: Magnesium 2.1 mg/dL (1.6-2.4); Phosphorus 4.4 mg/dL (2.5-4.9); Thyroid Stimulating Hormone 0.839 uIU/mL (0.358-3.740)
--- NOTE | 2022-11-29 20:50 | RAD REPORT ---
EXAM DESCRIPTION: USCarotid Artery Bilateral11/29/2022 6:40 pm CLINICAL HISTORY: syncope COMPARISON: None FINDINGS: The velocity of the right internal carotid artery equals 300 cm/sec. The right ICA/CCA rat io The velocity of the left internal carotid artery equals 125 cm/sec. The left ICA/CCA ratio 0.9 Mild plaque is present within the carotid arteries. The vertebral arteries demonstrate antegrade flow IMPRESSION: Elevated velocity of the right internal and external carotid arteries most likely second dave to the vessels being tortuous. However, it is recommended that patient have a MRA neck for confir mation NASCET criteria used. Mild 0-49% stenosis Moderate 50-69% stenosis Severe 70-99% stenosis
[2022-11-29] MEDS: INSULIN -REGULAR HUMAN 50 UNIT/0.5 ML ML SQ SCH (21:05)
--- NOTE | 2022-11-29 22:05 | P.CNS ---
Date of Consult: 11/29/22 Reason for Consult: DANIEL/ CKD Requesting Physician: Lei Marin Chief Complaint: Near syncope History of Present Illness: Patient is a 77-year-old male with a past medical history significant for anxiety disorder, DM 2, hypertension who presents with complaint of near syncope. Patient reported that his been having episodes of dizziness for quite some time now. Patient is a poor historian and unable to provide accurate history. Patient reported that dizziness became worse yesterday and today while at a store patient had a fall due to dizziness. Patient reported that he fell on his knees, did not hit his head or lost consciousness. Patient reported associated signs and symptoms of chills, weakness, fatigue and palpitations. Patient denies any other signs and symptoms. Symptoms are aggravated or relie marie by nothing. Patient decided to present to the hospital for medical evaluation. Of note, patient reported that she was having diarrhea but she took Kaopectate and has not had any episode of diarrhea since. 16:12 This 77 yrs old Male presents to ER via EMS with complaints of Dizziness. tom 16:12 The patient presents with dizziness, feeling faint, generalized weakness. Onset: The tom symptoms/episode began/occurred 1 day(s) ago. Context: occurred at home, at a store. Modifying factors: The symptoms are alleviated by nothing, the symptoms are aggravated by nothing. Associated signs and symptoms: Pertinent positives: palpitations. Severity of symptoms: At their worst the symptoms were mild moderate in the emergency department the symptoms have improved mildly. Patient's baseline: Neuro: alert and fully oriented. The patient has not experienced similar symptoms in the past. Diagnosis: Weakness;Syncope Near;Unspecified kidney failure- chronic;Dehydration;Type 1 diabetes mellitus with hyperglycemia;Unspecified cirrhosis of liver Presentation: 11/29 12:36 Chief complaint: EMS states: toned out to [place]iness from ld1 patient walking too far. Upon arrival patient reports walking a long distance - causing dizziness. Denies pain. EMS reports possibly being homeless. Coronavirus screen: At this time, the client does not indicate any symptoms associated with coronavirus-19. Ebola Screen: No symptoms or risks identified at this time. Initial Sepsis Screen: Does the patient meet any 2 criteria? No. Patient's initial sepsis screen is negative. Does the patient have a suspected source of infection? No. Patient's initial sepsis screen is negative. Risk Assessment: Do you want to hurt yourself or someone else? Patient reports no desire to harm self or others. Onset of symptoms was November 29, 2022 at 12:38. 12:36 Method Of Arrival: EMS: [facility]. Reports a history of CKD. Denies NSAIDs. Reports urinary frequency but also drinks lots of water. Denies prostate issues. Allergies fenofibrate nanocrystallized [From Tricor] Allergy (Mild, Verified 11/29/22 20:51) Unknown insulin degludec [From Tresiba FlexTouch U-100] Adverse Reaction (Intermediate, Verified 11/29/22 20:51) Anaphylaxis Home medications list reviewed: Yes Home Medications: Anxiety And Stress Relief 1 tab PO DAILY 11/29/22 Bismuth Subsalicylate [Kaopectate] 262 mg PO DAILY 11/29/22 Garlique 1 tab PO DAILY 11/29/22 Metoprolol Tartrate 50 mg PO BID 11/29/22 Simvastatin 40 mg PO BEDTIME 11/29/22 - Past Medical/Surgical History Diabetic: Yes -: DM II -: HTN -: CKD III with Proteinuria (Dr. Atkinson) -: colon surgery - Family History Father Medical History: Heart disease - Social History Smoking Status: Current some day smoker Alcohol use: No CD- Drugs: No Caffeine use: Yes Place of Residence: Home Review of Systems 10-point ROS is otherwise unremarkable General: Weakness Genitourinary: Frequency Physical Examination Temp Pulse Resp BP Pulse Ox 97.0 F 59 20 152/72 H 96 11/29/22 20:00 11/29/22 19:08 11/29/22 20:00 11/29/22 19:08 11/29/22 20:00 General: In no apparent distress, Oriented x3, Cooperative HEENT: Atraumatic Neck: Supple Respiratory: Clear to auscultation bilaterally Cardiovascular: No edema, Regular rate/rhythm Gastrointestinal: Soft and benign, Non-distended Musculoskeletal: No clubbing, No contractures Integumentary: No cyanosis, Rash(es) (LE Venous Stasis Dermatitis) Neurological: Normal speech Laboratory Data (last 24 hrs) 11/29/22 14:48: PT 11.0, INR 1.00 11/29/22 13:25: WBC 6.30, Hgb 13.7, Hct 41.5, Plt Count 171 11/29/22 13:25: Sodium 132 L, Potassium 5.1, BUN 37 H, Creatinine 2.68 H, Glucose 204 H, Magnesium 2.2, Total Bilirubin 0.6, AST 20, ALT 20, Alkaline Phosphatase 81, Lipase 99 H Imagings Data: EXAM DESCRIPTION: USCarotid Artery Bilateral11/29/2022 6:40 pm CLINICAL HISTORY: syncope COMPARISON: None FINDINGS: The velocity of the right internal carotid artery equals 300 cm/sec. The right ICA/CCA ratio The velocity of the left internal carotid artery equals 125 cm/sec. The left ICA/CCA ratio 0.9 Mild plaque is present within the carotid arteries. The vertebral arteries demonstrate antegrade flow IMPRESSION: Elevated velocity of the right internal and external carotid arteries most likely secondary to the vessels being tortuous. However, it is recommended that patient have a MRA neck for confirmation [facility]: CT - Stone Protocol - 11/29/2022 4:43 pm CLINICAL HISTORY: Abdominal pain. Flank pain COMPARISON: None. TECHNIQUE: Computed axial tomography of the abdomen pelvis was obtained without oral or IV contrast. Lack of IV and oral contrast limits evaluation of solid organs, appendix, bowel, and vessels. Coronal reformatted images were obtained and reviewed. All CT scans are performed using dose optimization technique as appropriate and may include automated exposure control or mA/KV adjustment according to patient size. FINDINGS: Cirrhotic liver. Elevation left hemidiaphragm. Borderline splenomegaly Pancreas and left adrenal appear grossly normal. 3.8 centimeter fatty mass right adrenal gland likely benign Tiny nonobstructing renal calculi. No hydronephrosis Small cystic renal mass is nonspecific without IV contrast. Left renal cortical thinning may be secondary prior inflammation. Partial colon resection. No evidence of diverticulitis. Moderate stool within the rectosigmoid colon. Atherosclerotic disease. Spondylosis lumbar spine Left ventral hernia at the level of the iliac crests it contains a loop of nondilated small bowel. An additional left ventral hernia within the lower pelvis contains another loop of nondilated bowel. IMPRESSION: Tiny nonobstructing renal calculi Cirrhosis Ventral hernias containing nondilated bowel [facility] EX[facility] DESCRIPTION: MRI - Brain Wo Cont - 11/29/2022 5:21 pm CLINICAL HISTORY: Dizziness COMPARISON: Head CT November 28, 2022 TECHNIQUE: Axial, sagittal, and coronal magnetic resonance images of the brain were obtained. FINDINGS: Mild signal within periventricular, deep and subcortical white matter probably ischemic changes secondary to small vessel disease [id number] cerebral atrophy Diffusion-weighted/ADC mapping does not reveal evidence of acute infarction. The ventricles are normal caliber. An extra-axial fluid collection is not noted. Fluid within the sinuses/mastoids is not seen IMPRESSION: No acute intracranial abnormality noted [facility] EXAM DESCRIPTION: [facility] Single View11/29/2022 1:04 pm CLINICAL HISTORY: cough COMPARISON: November 28, 2021 FINDINGS: The lungs appear clear of acute infiltrate. The heart is normal size. Chronic elevation left hemidiaphragm IMPRESSION: No acute abnormalities displayed Conclusions/Impression: DANIEL likely due to hypovolemia CKD III with Proteinuria Renal Cyst -No NSAIDs -Renal US ordered and reviewed -Continue IVF Hyponatremia -Continue IVF Hyperkalemia -Resolved with IVF Nephrolithiasis, non-obstructing -Maintain hydration BL Renal Cysts, Simple and Complex -Repeat renal ultrasound in 6 months HTN with CKD -Start Amlodipine daily DM II with CKD & Hyperglycemia -RISS Anemia in chronic illness -Monitor H&H Atherosclerosis of the aorta Former cigarette smoker -Recommend statin Thank you kindly for the consultation
[2022-11-29] MEDS ORDERED: NA CHLORIDE 0.9% 1,000 ML IV SCH (23:00)
[2022-11-30 03:52] LABS: Hematocrit 34.7 % (39.6-49.0); Lymphocytes % 34.8 % (15.3-44.8); MCV 87.6 fL (80-100); MPV 9.1 fL (7.6-11.3); RBC Red Blood Cell Count 3.96 M/uL (4.33-5.43)
[2022-11-30 04:16] LABS: Potassium 4.2 mEq/L (3.5-5.1); Uric Acid 6.9 mg/dL (3.5-7.2)
[2022-11-30 05:13] LABS: Hepatitis B Surface Ab - Quant < 3.10 mIU/mL (<8.0); Hepatitis B surface AG Interp. Nonreactive (Nonreactive); Hepatitis C Virus Ab Nonreactive (Nonreactive)
[2022-11-30 06:42] LABS: Specific Gravity 1.011 (1.005-1.030); Urine Bacteria None Seen /HPF (<20); Urine Bilirubin NEGATIVE (Negative); Urine Blood 1+ (Negative); Urine Clarity Clear (Clear); Urine Color Colorless (Yellow); Urine Glucose 1+ (Negative); Urine Protein 3+ (Negative); Urine RBC <5 /HPF (None Seen); Urine Urobilinogen Normal (Normal)
[2022-11-30 06:47] LABS: UR PROTEIN 255.8 mg/dL (<11.9); Urine Protein/Creatinine Ratio 4.49 ratio (<0.15)
[2022-11-30] MEDS: INSULIN -REGULAR HUMAN 50 UNIT/0.5 ML ML SQ SCH ×4 (07:30→21:58)
[2022-11-30] MEDS ORDERED: PANTOPRAZOLE 40MG TABLET PO ONE (08:21)
[2022-11-30] MEDS: ASPIRIN 81 MG CHEWABLE TABLET PO SCH (08:24)
[2022-11-30] MEDS: ENOXAPARIN 40 MG/0.4 ML SQ SCH (08:25)
--- NOTE | 2022-11-30 08:37 | RAD REPORT ---
EXAM DESCRIPTION: US - Renal Ultrasound-Complete - 11/30/2022 12:28 am CLINICAL HISTORY: Chronic renal disease. Renal mass COMPARISON: CT November 29, 2021 FINDINGS: The right kidney measures 12 cm with a normal echotexture. The left kidney measures 10 cm with a normal echotexture. Bilateral renal cystic masses. Some are simple and some containing low level echoes. The largest 2 ce ntimeters right kidney Hydronephrosis is not seen. No gross abnormality of bladder IMPRESSION: Bilateral cystic renal masses most likely a combination of simple and benign complex cys ts. Follow up renal ultrasound in 6 months recommended for re-evaluation
[2022-11-30] MEDS ORDERED: DRISDOL (VITAMIN D=ERGOCALCIFEROL) 50000 UNIT CAP PO SCH (11:00)
[2022-11-30] MEDS: AMLODIPINE 5 MG TAB PO SCH (12:08)
[2022-11-30] MEDS: Ringers Lactate 1,000 ML IV SCH (12:14)
[2022-11-30] MEDS: DOCUSATE NA 100 MG CAP PO SCH (21:58)
[2022-12-01] MEDS: Ringers Lactate 1,000 ML IV SCH ×2 (00:36→11:49)
[2022-12-01 03:49] LABS: Albumin 2.5 g/dL (3.4-5.0); Bilirubin Total 0.3 mg/dL (0.2-1.0); Protein, Total 5.7 g/dL (6.4-8.2)
--- NOTE | 2022-12-01 05:53 | EKG ---
Test Date: 2022-11-29 Test Time: 13:31:47 Relay Record Clerk: Samaria MONTANO MEASUREMENT RESULTS: Intervals: Rate: 68 FL: 168 QRSD: 118 QT: 436 QTc: 463 [place]: P: 29 FL: 168 QRS: -23 T: 35 INTERPRETIVE STATEMENTS: Sinus rhythm with premature atrial complexes Incomplete right bundle branch block Borderline ECG Compared to ECG 11/28/2022 11:32:58 Atrial premature complex(es) now present Incomplete right bundle-branch block now present Right bundle-branch block no longer present T-wave abnormality no longer present Possible ischemia no longer present Electronically Signed On 12-01-22 05:49:04 CDT by Jos Todd
[2022-12-01] MEDS: INSULIN -REGULAR HUMAN 50 UNIT/0.5 ML ML SQ SCH ×4 (07:30→20:18)
[2022-12-01] MEDS: AMLODIPINE 5 MG TAB PO SCH ×2 (08:18→20:18)
[2022-12-01] MEDS: DOCUSATE NA 100 MG CAP PO SCH ×2 (08:18→20:17)
[2022-12-01] MEDS: ASPIRIN 81 MG CHEWABLE TABLET PO SCH (08:18)
[2022-12-01] MEDS: ENOXAPARIN 40 MG/0.4 ML SQ SCH (08:18)
[2022-12-01] MEDS: HYDRALAZINE HCL 20 MG/ML VIAL IV PRN (16:08)
--- NOTE | 2022-12-01 18:01 | P.PN ---
Nephrology note: (S) Pt denies any CP, dyspnea or N/V/abdominal pain, upset about his recent eviction he claims from his appt. (O) Vitals reviewed in the EMR. General: In no apparent distress, Oriented x3, Cooperative HEENT: Atraumatic, sclera anicteric, not on O2 Neck: Supple Respiratory: Clear to auscultation bilaterally Cardiovascular: Trace distal edema, Regular rate/rhythm Gastrointestinal: Soft and benign, Non-distended Musculoskeletal: No clubbing, No contractures Integumentary: No cyanosis, (LE Venous Stasis Dermatitis) Neurological: Normal speech, awake, alert, non focal Laboratory Data (last 24 hrs) Reviewed in the EMR Conclusions/Impression: Stage 1 DANIEL likely due to hypovolemia on underling CKD IIIb with notable proteinuria on spot urine testing (macroalbuminuria and Up/c > 3 gm) Given chronic DM, 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 -D/c IVF as pt hypertensive and Cr level has downward trended from admission levels. Acquired cysts of kidney, abnormal diagnostic imaging of kidneys b/l, calculi (non obstructing) -Simple and mildly complex cysts reported on u/s, can f/u in 6 mo. HTN with CKD -Will stop IVF and will titrate CCB dose. If renal function remains stable, will look to place on a MAY inhibitor given proteinuria. Enzo Hannah MD, EDEL
[2022-12-01 22:15] VITALS: BMI 29.6
[2022-12-02] MEDS: ASPIRIN 81 MG CHEWABLE TABLET PO SCH (08:12)
[2022-12-02] MEDS: ENOXAPARIN 40 MG/0.4 ML SQ SCH (08:12)
[2022-12-02] MEDS: AMLODIPINE 5 MG TAB PO SCH ×2 (08:12→20:16)
[2022-12-02] MEDS: INSULIN -REGULAR HUMAN 50 UNIT/0.5 ML ML SQ SCH ×4 (08:13→20:16)
[2022-12-02] MEDS: DOCUSATE NA 100 MG CAP PO SCH ×2 (08:14→20:17)
[2022-12-02] MEDS ORDERED: NA CHLORIDE 0.9% 500 ML IV ONE (11:30)
[2022-12-02] MEDS: HYDRALAZINE HCL 20 MG/ML VIAL IV PRN (15:55)
--- NOTE | 2022-12-02 16:30 | PN ---
Date of Progress Note: 12/02/2022 Subjective: Patient was seen and examined at bedside. He reports that he is doing well. Denies any new complaints. Denies any shortness of breath. He is having good bowel movements. No other issue s reported. Physical Examination: Vital Signs: Have been reviewed and are stable. General: He appears in no acute distress. Lungs: Clear. Abdomen: Soft, obese, and nontender. Extremities: Trace amount of edema in bilateral lower extremities, slightly worse on the right side. Laboratory Data: No new laboratory data obtained from today. Creatinine was stable as of yesterday. Current Medications: Have been reviewed in detail. Impression: 1.Acute on chronic renal insufficiency, currently with overall stable renal function. 2.Hypertension, currently well controlled. Continue home medications at this time. 3.Hyponatremia, improved with IV fluids. 4.Hyperkalemia, resolved. 5.Nephrolithiasis, nonobstructing. No acute intervention needed at this time. Plan: Overall, patient is doing okay at this time. Renal function is stable. His dizziness is impr oving. He is okay to be discharged from Nephrology standpoint with close followup with Nephrology as an outpatient. ALISHA/LOLLY Voice ID: [id number] Report ID: [id number]
[2022-12-02] MEDS: PANTOPRAZOLE 40MG TABLET PO SCH (17:33)
[2022-12-03] MEDS: HYDRALAZINE HCL 20 MG/ML VIAL IV PRN (05:20)
[2022-12-03] MEDS: PANTOPRAZOLE 40MG TABLET PO SCH (05:20)
[2022-12-03 06:22] LABS: Absolute Lymphocytes (CBC) 1.3 K/uL (0.7-4.9); Hematocrit 37.6 % (39.6-49.0); Lymphocytes % 28.1 % (15.3-44.8); MCV 88.4 fL (80-100); RBC Red Blood Cell Count 4.25 M/uL (4.33-5.43)
[2022-12-03 06:32] LABS: Potassium 4.1 mEq/L (3.5-5.1)
[2022-12-03] MEDS: DOCUSATE NA 100 MG CAP PO SCH (08:47)
[2022-12-03] MEDS: ENOXAPARIN 40 MG/0.4 ML SQ SCH (08:47)
[2022-12-03] MEDS: INSULIN -REGULAR HUMAN 50 UNIT/0.5 ML ML SQ SCH ×3 (08:47→16:05)
[2022-12-03] MEDS: ASPIRIN 81 MG CHEWABLE TABLET PO SCH (08:48)
[2022-12-03] MEDS: AMLODIPINE 5 MG TAB PO SCH (08:48)
[2022-12-03 17:37] VITALS: BP 170/78; TEMP 97.8
[2022-12-03 17:47] VITALS: O2SAT 95
--- NOTE | 2022-12-04 06:54 | ECHO ---
HEIGHT: 5 ft 10 in WEIGHT: 217 lb 8 oz DATE OF STUDY: REFER DR: Eunice Rondon 2-DIMENSIONAL: YES M.MODE: YES DOPPLER: YES COLOR FLOW: YES TDS: YES PORTABLE: YES DEFINITY: NO BUBBLE STUDY: NO DIAGNOSIS: NEAR SYNCOPE CARDIAC HISTORY: CATHERIZATION: SURGERY: PROSTHETIC VALVE: PACEMAKER: MEASUREMENTS (cm) DIASTOLIC (NORMALS) SYSTOLIC (NORMALS) IVSd 1.1 (0.6-1.2) LA Diam (1.9-4.0) LVEF 66% LVIDd 4.7 (3.5-5.7) LVIDs 3.0 (2.0-3.5) %FS 37% LVPWd 1.2 (0.6-1.2) Ao Diam 3.9 (2.0-3.7) 2 DIMENSIONAL ASSESSMENT: RIGHT ATRIUM: NORMAL LEFT ATRIUM: NORMAL RIGHT VENTRICLE: NORMAL LEFT VENTRICLE: NORMAL TRICUSPID VALVE: NORMAL MITRAL VALVE: MITRAL ANNULAR CALCIFICATION WITH MILD MITRAL REGURGITATION PULMONIC VALVE: NORMAL AORTIC VALVE: NORMAL PERICARDIAL EFFUSION: NONE AORTIC ROOT: NORMAL LEFT VENTRICULAR WALL MOTION: NORMAL. DOPPLER/COLOR FLOW: SEE BELOW. COMMENTS: NORMAL EJECTION FRACTION 55-60% NORMAL WALL MOTION MILD MITRAL REGURGITATION TECHNOLOGIST: BAUTISTA SINGER
[2022-12-05 15:37] LABS: Albumin, (SPE) 2.8 g/dL (3.8-4.8); Alpha-1-Globulins 0.3 g/dL (0.2-0.3); Alpha-2-Globulins 0.8 g/dL (0.5-0.9); Gamma Globulins 0.5 g/dL (0.8-1.7); INTERPRETATION Consistent with
== END 2022-12-03 18:36 | disposition home or self-care (01) | DRG 683 ==
LOC: ER 12:30 → ERHOLD 17:17 → 2ND 19:56
PROVIDERS: ADMIT Hospitalist; ATTEND Hospitalist
DX: N17.9 Acute kidney failure, unspecified (principal); E87.1 Hypo-osmolality and hyponatremia; E86.0 Dehydration; K74.60 Unspecified cirrhosis of liver; I12.9 Hypertensive chronic kidney disease with stage 1 through stage 4 chronic kidney disease, or unspecified chronic kidney disease; N18.32 Chronic kidney disease, stage 3b; E11.22 Type 2 diabetes mellitus with diabetic chronic kidney disease; E11.65 Type 2 diabetes mellitus with hyperglycemia; D63.1 Anemia in chronic kidney disease; N28.1 Cyst of kidney, acquired; E87.5 Hyperkalemia; F41.9 Anxiety disorder, unspecified; N20.0 Calculus of kidney; I70.0 Atherosclerosis of aorta; Z88.8 Allergy status to other drugs, medicaments and biological substances; Z79.4 Long term (current) use of insulin; Z87.891 Personal history of nicotine dependence; Z79.899 Other long term (current) drug therapy
CPT/HCPCS: 36415; 70450; 70551; 71045; 74176; 76377; 76770; 80048; 80053; 80076; 81001; 82043; 82140; 82570; 82947; 83036; 83690; 83735; 83880; 84100; 84156; 84165; 84439; 84443; 84484; 84550; 85025; 85610; 86038; 86160; 86335; 86706; 86803; 87340; 93005; 93306; 93880; 96360; 96374; 99284; 99285; J0360; J1650; J1815; J7030; J7040; J7120

== ENCOUNTER 2022-12-09 10:20 | Emergency (ER) | payer OTHER ==
--- OUTSIDE RECORDS SUMMARY | 2022-12-09 10:23 | XMS REPORT | Continuity of Care Document ---
:1945 Author Organization [facility] t Address [address] [place] [address] [place] [id number] Care Team Providers Name Role Phone Miller_S_AH Attending Clinician Unavailable Ajibade_O_AH Attending Clinician Unavailable Ige-Odunfernando_J_AH Attending Clinician Unavailable Ivan Contreras Attending Clinician Unavailable Ivan Contreras Attending Clinician Unavailable Miller_S_AH Admitting Clinician Unavailable Ajibade_O_AH Admitting Clinician Unavailable Ige-Odunfernando_J_AH Admitting Clinician Unavailable Ivan Contreras Admitting Clinician Unavailable Payers Payer Name Policy Type Policy Number Effective Date Expiration Date Emy mack [facility] [place] - [id number] [id number] [employer] 00:00:00 (MEDICARE REPLACEMENT/ADVANT AGE - HMO) Problems Condition Condition Condition Status Onset Resolution Last Treating Co mments Source Name Details Category Date Date Treatment Clinician Date Senile Senile Problem Active [facility] purpura Purpura - Family 00:00: Practic 00 e Noncomplia Noncomplia [...] Practic 00 e Generalize Generalize Problem Active [facility] anxiety d Anxiety 2-25 [...] Date Date Clinician No Known Drug Active [facility] Drug Active [facility] Social History Smoking Status Start Date Stop Date Source Former [facility] Medications Ordered Filled Start Stop Current Ordering Indication Dosage Frequency Signature Comments Components Source Medication Medication Date Date Medication? Clinician (SIG) Name Name Asprin Ec Asprin Ec No 1 Q1D Asprin Ec [facility] Low Dose 81 Low Dose 81 Low Dose Family mg mg 81 mg Practic tablet,juan tablet,juan tablet,del e yed release yed release ayed Take 1 Take 1 release tablet tablet Take 1 every day every day tablet by oral by oral every day route. route. by oral route. hydroxyzine hydroxyzine No 2 Q12H hydroxyzin [facility] HCl 25 mg HCl 25 mg e [...] night. metoprolol metoprolol No 1 BID metoprolol [facility] tartrate 50 tartrate 50 tartrate Family mg [...] Comments Source Height 2020-10-27 00:00:00 70 [in_i] [facility] BMI (Body Mass 2020-10-27 00:00:00 37.3 kg/m2 [facility] Index) Practice Body Weight 2020-10-27 00:00:00 260 [lb_av] [facility] BP Diastolic 2020-09-23 00:00:00 86 mm[Hg] [facility] Height 2020-09-23 00:00:00 70 [in_i] [facility] BMI (Body Mass 2020-09-23 00:00:00 37.3 kg/m2 [facility] Index) Practice BP Systolic 2020-09-23 00:00:00 136 mm[Hg] [facility] Body Weight 2020-09-23 00:00:00 260 [lb_av] [facility] Height/Length 2021-08-16 11:09:21 177.80 cm Measured Weight Dosing 2021-08-16 11:09:21 108.86 kg Procedures Procedure Date / Time Performed Performing Clinician [facility] e Screening for Malignant [facility] Neoplasm of Prostate Practice Extraction of Cataract [facility] Practice Removal of Colon [facility] Encounters Start End Encounter Admission Attending Care Care Encounter Source Date/Time Date/Time Type Type Clinicians Facility Department ID 2021-01-04 2021-01-04 Outpatient Miller_S_AH VFP VFP [id number] [facility] 03:27:00 03:27:00 [id number] Family Practic e 2020-11-10 2020-11-10 Outpatient Ajibade_O_A VFP VFP 792 [facility] 06:52:00 06:52:00 H [id number] Family Practic e 2020-10-27 2020-10-27 Outpatient Ajibade_O_A VFP VFP 792 [facility] 01:51:00 01:51:00 H [id number] Family Practic e 2020-10-27 2020-10-27 [place] [facility] [place] - [id number] [facility] 00:00:00 00:00:00 Sukhwinder Carrasquillo Famil y 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 2020-03-25 2020-03-25 Outpatient Ajibade_O_A VFP VFP [id number] [facility] 04:36:00 04:36:00 H [id number] Family Practic e 2020-03-25 2020-03-25 Outpatient Ajibade_O_A VFP VFP [phone] [facility] 04:36:00 04:36:00 H [id number] Family Practic e 2020-03-25 2020-03-25 Outpatient Ajibade_O_A VFP VFP [id number] [facility] 04:36:00 04:36:00 H [id number] Family Practic e 2020-03-25 2020-03-25 Outpatient Ajibade_O_A VFP VFP [id number] [facility] 04:36:00 04:36:00 H [id number] Family Practic e 2019-09-17 2019-09-17 Outpatient Ige-Odunuga VFP VFP [id number] [facility] 07:13:00 07:13:00 _Maximus_ [id number] Family Practic e 2019-09-17 2019-09-[facility] [phone] [facility] 07:13:00 07:13:00 _J_ [id number] Family Practic e 2019-07-03 2019-07-08 Inpatient 1 Ivan Contreras [facility] PSY [id number] 10:34:00 13:25:00 Ivan Contreras [facility] Results Test Description Test Time Test [...] to the main Lab for analysis. POC [id number] 07:11:51 Test Item Value Reference Range Interpretation Comments Glucose POC (test 118 mg/dL 70-115 H Notify RN or MDIf you code = Glucose POC) consider your patient critically ill, the Sj-Accu Chec k Infrom II meter should not be used for Glucos e determination. Draw a venous Glucose and send to the main Lab for analysis. POC [id number] 19:44:19 Test Item Value Reference Range Interpretation Comments Glucose POC (test 151 mg/dL 70-115 H Notify RN or MDIf you code = Glucose POC) consider your patient critically ill, the Sj-Accu Chec k Infrom II meter should not be used for Glucos e determination. Draw a venous Glucose and send to the main Lab for analysis. POC [id number] 15:05:21 Test Item Value Reference Range Interpretation Comments Glucose POC (test 119 mg/dL 70-115 H Notify RN or MDIf you code = Glucose POC) consider your patient critically ill, the Sj-Accu Chec k Infrom II meter should not be used for Glucos e determination. Draw a venous Glucose and send to the main Lab for analysis. POC [id number] 11:16:17 Test Item Value Reference Range Interpretation Comments Glucose POC (test 132 mg/dL 70-115 H Notify RN or MDIf you code = Glucose POC) consider your patient critically ill, the Sj-Accu Chec k Infrom II meter should not be used for Glucos e determination. Draw a venous Glucose and send to the main Lab for analysis. POC [id number] 06:17:22 Test Item Value Reference Range Interpretation Comments Glucose POC (test 121 mg/dL 70-115 H Notify RN or MDIf you code = Glucose POC) consider your patient critically ill, the Sj-Accu Chec k Infrom II meter should not be used for Glucos e determination. Draw a venous Glucose and send to the main Lab for analysis. POC [id number] 20:10:13 Test Item Value Reference Range Interpretation Comments Glucose POC (test 133 mg/dL 70-115 H If you con waterside worker your code = Glucose POC) patient critically ill, the Sj-Accu Check Infrom II meter should not be used for Glucose determination. Draw a venous Glucose and send to the main Lab for analysis. POC [id number] 06:13:49 Test Item Value Reference Range Interpretation Comments Glucose POC (test 116 mg/dL 70-115 H If you con waterside worker your code = Glucose POC) patient critically ill, the Sj-Accu Check Infrom II meter should not be used for Glucose determination. Draw a venous Glucose and send to the main Lab for analysis. POC [id number] 19:55:46 Test Item Value Reference Range Interpretation Comments Glucose POC (test 121 mg/dL 70-115 H If you con waterside worker your code = Glucose POC) patient critically ill, the Sj-Accu Check Infrom II meter should not be used for Glucose determination. Draw a venous Glucose and send to the main Lab for analysis. POC [id number] 16:21:40 Test Item Value Reference Range Interpretation Comments Glucose POC (test 126 mg/dL 70-115 H Notify RN or MDIf you code = Glucose POC) consider your patient critically ill, the Sj-Accu Chec k Infrom II meter should not be used for Glucos e determination. Draw a venous Glucose and send to the main Lab for analysis. POC [id number] 12:10:14 Test Item Value Reference Range Interpretation Comments Glucose POC (test 138 mg/dL 70-115 H Notify RN or MDIf you code = Glucose POC) consider your patient critically ill, the Sj-Accu Chec k Infrom II meter should not be used for Glucos e determination. Draw a venous Glucose and send to the main Lab for analysis. POC [id number] 06:38:10 Test Item Value Reference Range Interpretation Comments Glucose POC (test 112 mg/dL 70-115 If you con waterside worker your code = Glucose POC) patient critically ill, the Sj-Accu Check Infrom II meter should not be used for Glucose determination. Draw a venous Glucose and send to the main Lab for analysis. POC [id number] 19:46:42 Test Item Value Reference Range Interpretation Comments Glucose POC (test 107 mg/dL 70-115 If you con waterside worker your code = Glucose POC) patient critically ill, the Sj-Accu Check Infrom II meter should not be used for Glucose determination. Draw a venous Glucose and send to the main Lab for analysis. RPR [id number] 15:31:56 Test Item Value Reference Range Interpretation Comments RPR Qual (test code = RPR Qual) Non-Reactive Non-Reactive Reactive Control (test code = Reactive Reactive Control) Weak Reactive Control (test Weak Reactive code = Weak Reactive Control) Non-Reactive Control (test code Non-Reactive = Non-Reactive Control) Lot # (test code = Lot #) [id number] N Expiration Dt (test code = 05-29-20 N Expiration Dt) POC [id number] 15:06:05 Test Item Value Reference Range Interpretation Comments Glucose POC (test 118 mg/dL 70-115 H Notify RN or MDIf you code = Glucose POC) consider your patient critically ill, the Sj-Accu Chec k Infrom II meter should not be used for Glucos e determination. Draw a venous Glucose and send to the main Lab for analysis. POC [id number] 11:12:35 Test Item Value Reference Range Interpretation Comments Glucose POC (test 146 mg/dL 70-115 H If you con waterside worker your code = Glucose POC) patient critically ill, the Sj-Accu Check Infrom II meter should not be used for Glucose determination. Draw a venous Glucose and send to the main Lab for analysis. POC [id number] 07:42:11 Test Item Value Reference Range Interpretation Comments Glucose POC (test 122 mg/dL 70-115 H If you con waterside worker your code = Glucose POC) patient critically ill, the Sj-Accu Check Infrom II meter should not be used for Glucose determination. Draw a venous Glucose and send to the main Lab for analysis. POC [id number] 19:17:06 Test Item Value Reference Range Interpretation Comments Glucose POC (test 114 mg/dL 70-115 If you con waterside worker your code = Glucose POC) patient critically ill, the Sj-Accu Check Infrom II meter should not be used for Glucose determination. Draw a venous Glucose and send to the main Lab for analysis. Urinalysis [id number] 12:27:32 Test Item Value Reference Range Interpretation Comments UA WBC (test code = UA WBC) 0-5 0-5 UA RBC (test code = UA RBC) 0-5 0-5 UA Squam Epithelial (test code = UA 0-5 Squam Epithelial) Comprehensive Metabolic [id number] 12:12:02 Test Item Value Reference Range Interpretation [...] A/G 1.6 ratio N Ratio) Comprehensive Metabolic [id number] 12:12:02 Test Item Value Reference Range Interpretation [...] National Kidney Foundation, http://nkdep.ni h.gov Comprehensive Metabolic [id number] 12:12:02 Test Item Value Reference Range Interpretation [...] ag e have not been validated by [facility] MDRD study and should be interpreted [...] ag e have not been validated by [facility] MDRD study and should be interpreted wit h caution. eGFR R esult Interpretation: eGFR > or = 60 is in the Normal RangeeGF R < 60 may mean kid kyle diseaseeGFR < 1 5 may mean kidney failure Rang es recommended by the National Kidney Foundation, http://nkdep.ni h.gov Urine Drug [id number] 12:01:40 Test Item Value Reference Range Interpretation [...] if desired . Complete Blood Count with [id number] 11:38:14 Test Item Value Reference Range Interpretation [...] code = IPF) 0 % N Automated [id number] 11:38:14 Test Item Value Reference Range Interpretation Comments Neutro Auto (test code = Neutro 76.4 % 36.0-70.0 H Auto) Lymph Auto (test code = Lymph Auto) 15.8 % 12.0-44.0 [place] Auto (test code = [place] Auto) 6.7 % 0.0-11.0 Eos, Auto (test code = Eos, Auto) 0.3 % 0.0-7.0 Basophil Auto (test code = Basophil 0.4 % 0.0-2.0 Auto) Neutro Absolute (test code = Neutro 5.3 x10 1.6-7.4 Absolute) Lymph Absolute (test code = Lymph 1.09 x10 .50-4.60 Absolute) [place] Absolute (test code = [place] .46 x10 .00-1.20 Absolute) Eos Absolute (test code = Eos 0.02 x10 0.00-0.74 Absolute) Baso Absolute (test code = Baso 0.03 x10 0.00-0.21 Absolute) IG [id number] 11:38:14 Test Item Value Reference Range Interpretation Comments IG (test code = IG) 0.4 % 0.0-5.0 IG Abs (test code = IG Abs) 0 x10 N Urinalysis with Culture, if [id number] 11:37:19 Test Item Value Reference Range Interpretation [...] Micro Ind?) rule GL_SJM_UA_MICRO _IN D POC [id number] 11:07:06 Test Item Value Reference Range Interpretation Comments Glucose POC (test 123 mg/dL 70-115 H If you con waterside worker your code = Glucose POC) patient critically ill, the Sj-Accu Check Infrom II meter should not be used for Glucose determination. Draw a venous Glucose and send to the main Lab for analysis.
[2022-12-09 11:16] LABS: Absolute Lymphocytes (CBC) 1.1 K/uL (0.7-4.9); Hematocrit 40.6 % (39.6-49.0); Lymphocytes % 21.6 % (15.3-44.8); MCV 89.5 fL (80-100); MPV 9.3 fL (7.6-11.3); RBC Red Blood Cell Count 4.53 M/uL (4.33-5.43)
[2022-12-09 11:20] LABS: Protime INR 1.01
--- NOTE | 2022-12-09 11:43 | RAD REPORT ---
EXAM DESCRIPTION: RAD - Chest Single View - 12/09/2022 11:27 am CLINICAL HISTORY: SOB COMPARISON: Chest Single View dated 11/29/2022; Chest Single View dated 11/28/2022; Chest Single View da cata 09/04/2022; Chest Single View dated 05/14/2022; Stone Protocol dated 11/29/2022 FINDINGS: Lines: None. Lungs: No evidence of edema or pneumonia. Chronically elevated left hemidiaphragm and likely underlyi ng atelectasis or scarring. Pleural: No significant pleural effusions or pneumothorax. Cardiac: The heart size is within normal limits. Mediastinum: Within normal limits. Bones: No acute fractures. Other: None IMPRESSION: No acute cardiopulmonary disease.
[2022-12-09 11:51] LABS: Magnesium 2.2 mg/dL (1.6-2.4); Potassium 4.3 mEq/L (3.5-5.1); Troponin High Sensitivity 13.8 pg/mL (<58.9)
[2022-12-09 13:26] LABS: Specific Gravity 1.009 (1.005-1.030); Urine Bacteria None Seen /HPF (<20); Urine Bilirubin NEGATIVE (Negative); Urine Blood Trace (Negative); Urine Clarity Clear (Clear); Urine Color Light-Yellow (Yellow); Urine Glucose 1+ (Negative); Urine Mucus Slight /HPF (None Seen); Urine Protein 3+ (Negative); Urine RBC <5 /HPF (None Seen); Urine Urobilinogen Normal (Normal)
--- NOTE | 2022-12-09 14:38 | RAD REPORT ---
EXAM DESCRIPTION: CT - CTHCSPWOC - 12/09/2022 2:26 pm CLINICAL HISTORY: Trauma, head and neck injury. neck pain;Dizziness COMPARISON: <Comparisons> TECHNIQUE: Axial 5 mm thick images of the head were obtained. Axial 2 mm thick images of the cervical spine were obtained with sagittal and coronal reconstruction images generated and reviewed. All CT scans are performed using dose optimization technique as appropriate and may include automated exposure control or mA/KV adjustment according to patient size. FINDINGS: CT HEAD WITHOUT CONTRAST: No acute hemorrhage, hydrocephalus or extra-axial collection is identified.No areas of brain edema or midline shift. Age advanced cerebral atrophy. The paranasal sinuses and mastoids are clear.The calvarium is intact. CT CERVICAL SPINE WITHOUT CONTRAST: No fracture or subluxation.No prevertebral soft tissues swelling is identified. Anterolisthesis of C3 on C4 and C4 on C5. Varying degrees of neural foraminal narrowing noted. This is most advanced on th e right at C4-5 and C5-6. IMPRESSION: No acute intracranial or cervical spine findings.
--- NOTE | 2022-12-09 15:17 | ER ---
Nurse's Notes [facility] Name: Arun Mccall Age: 77 yrs Sex: Male : 1945 Arrival Date: 12/09/2022 Time: 10:20 Bed 13 Private MD: Diagnosis: Weakness;Dizziness and giddiness Presentation: 12/09 10:27 Chief complaint: EMS states: pt is homeless and woke up this morning with generalized kc6 weakness and dizziness. states pt has not eaten in x2 days. states pt was also kicked out of motel he was staying at. Coronavirus screen: At this time, the client does not indicate any symptoms associated with coronavirus-19. Ebola Screen: No symptoms or risks identified at this time. Initial Sepsis Screen: Does the patient meet any 2 criteria? No. Patient's initial sepsis screen is negative. Does the patient have a suspected source of infection? No. Patient's initial sepsis screen is negative. Risk Assessment: Do you want to hurt yourself or someone else? Patient reports no desire to harm self or others. Onset of symptoms was December 09, 2022. 10:27 Method Of Arrival: EMS: [facility] kc6 10:27 Acuity: CHAYITO 3 kc6 Triage Assessment: 10:28 General: Appears in no apparent distress. comfortable, Behavior is calm, cooperative, kc6 appropriate for age. Pain: Denies pain. EENT: No signs and/or symptoms were reported regarding the EENT system. Neuro: Gates Agitation-Sedation Scale (RASS): 0 - Alert and Calm Level of Consciousness is awake, alert, obeys commands, Oriented to person, place, time, situation, Appropriate for age Reports dizziness, weakness. Cardiovascular: Capillary refill < 3 seconds. Respiratory: Airway is patent Trachea midline Respiratory effort is even, unlabored, Respiratory pattern is regular, symmetrical. GI: No signs and/or symptoms were reported involving the gastrointestinal system. : No signs and/or symptoms were reported regarding the genitourinary system. Derm: No signs and/or symptoms reported regarding the dermatologic system. Skin is intact, Skin is pink, warm \\T\\ dry. Musculoskeletal: No signs and/or symptoms reported regarding the musculoskeletal system. Circulation, motion, and sensation intact. Capillary refill < 3 seconds, Range of motion: intact in all extremities. Historical: - Allergies: 10:28 fenofibrate nanocrystallized; kc6 10:28 insulin degludec; kc6 - PMHx: 10:28 Anxiety; Diabetes - IDDM; Hypertension; kc6 - PSHx: 10:28 colon sx; kc6 - Immunization history:: Adult Immunizations unknown. - Social history:: Smoking status: unknown. Screenin:[facility] ED Fall Risk Assessment (Adult) History of falling in the last 3 months, kc6 including since admission No falls in past 3 months (0 pts) Confusion or Disorientation No (0 pts) Intoxicated or Sedated No (0 pts) Impaired Gait No (0 pts) Mobility Assist Device Used No (0 pt) Altered Elimination No (0 pt) Score/Fall Risk Level 0 - 2 = Low Risk Oriented to surroundings, Maintained a safe environment, Educated pt \\T\\ family on fall prevention, incl call for assistance when getting out of bed, Assessed \\T\\ reinforced patient's understanding of fall precautions, Hourly rounding (assess needs \\T\\ fall precautionary measures) done. Abuse screen: Denies threats or abuse. Denies injuries from another. Nutritional screening: No deficits noted. Tuberculosis screening: No symptoms or risk factors identified. Assessment: 10:30 Reassessment: please see triage assesment. kc6 11:20 Reassessment: Patient appears in no apparent distress at this time. No changes from kc6 previously documented assessment. Patient and/or family updated on plan of care and expected duration. Pain level reassessed. Patient is alert, oriented x 3, equal unlabored respirations, skin warm/dry/pink. 12:20 Reassessment: Patient appears in no apparent distress at this time. No changes from kc6 previously documented assessment. Patient and/or family updated on plan of care and expected duration. Pain level reassessed. Patient is alert, oriented x 3, equal unlabored respirations, skin warm/dry/pink. 13:20 Reassessment: Patient appears in no apparent distress at this time. No changes from kc6 previously documented assessment. Patient and/or family updated on plan of care and expected duration. Pain level reassessed. Patient is alert, oriented x 3, equal unlabored respirations, skin warm/dry/pink. 14:20 Reassessment: Patient appears in no apparent distress at this time. No changes from kc6 previously documented assessment. Patient and/or family updated on plan of care and expected duration. Pain level reassessed. Patient is alert, oriented x 3, equal unlabored respirations, skin warm/dry/pink. 15:20 Reassessment: Patient appears in no apparent distress at this time. No changes from kc6 previously documented assessment. Patient and/or family updated on plan of care and expected duration. Pain level reassessed. Patient is alert, oriented x 3, equal unlabored respirations, skin warm/dry/pink. 15:39 Reassessment: d/c pending ride. spoke with [employer]. stated she will be here in [facility] approximately 30min for transport back to the [facility]. Vital Signs: 10:27 BP 166 / 99; Pulse 58; Resp 18 S; Temp 98.1(O); Pulse Ox 100% on R/A; kc6 11:23 BP 138 / 73; Pulse 56; Resp 12 S; Pulse Ox 100% on R/A; kc6 12:31 BP 147 / 81; Pulse 50; Resp 25 S; Pulse Ox 100% on R/A; kc6 13:42 BP 157 / 70; Pulse 59; Resp 21; Pulse Ox 100% on R/A; kc6 15:25 BP 156 / 77; Pulse 57; Resp 18 S; Pulse Ox 99% on R/A; kc6 ED Course: 10:27 Patient arrived in ED. kc6 10:28 Triage completed. kc6 10:28 Arm band placed on. kc6 10:30 Patient has correct armband on for positive identification. Bed in low position. Call [facility] light in reach. Side rails up X2. 10:32 Sumeet Anders PA is PHCP. cp 10:32 Atul Martinez MD is Attending Physician. cp 10:33 Lacie Avitia, ASTRID is Primary Nurse. kc6 11:00 Missed attempt(s): 20 gauge antecubital area. bc6 11:02 Note: Head CT cancelled per Dr. Martinez due to pt refusal stating "I just had one last jg10 week, I don't think anything is wrong with my head." . 11:15 Basic Metabolic Panel Sent. bc6 11:15 CBC with Diff Sent. bc6 11:15 Magnesium Sent. bc6 11:15 NT PRO-BNP Sent. bc6 11:15 PT-INR Sent. bc6 11:15 Troponin HS Sent. bc6 11:23 Inserted saline lock: 20 gauge in left antecubital area, using aseptic technique. kc6 11:29 XRAY Chest (1 view) In Process Unspecified. EDMS 14:28 CT Head C Spine In Process Unspecified. EDMS 16:12 No provider procedures requiring assistance completed. IV discontinued, intact, kc6 bleeding controlled, No redness/swelling at site. Pressure dressing applied. Administered Medications: No medications were administered Medication: 16:13 VIS not applicable for this client. kc6 Outcome: 15:16 Discharge ordered by MD. cp 16:12 [facility] kc6 16:12 Condition: stable 16:12 Discharge instructions given to patient, Instructed on discharge instructions, follow up and referral plans. Demonstrated understanding of instructions, follow-up care. 16:13 Patient left the ED. kc6 Signatures: Dispatcher [employer] EDMS Sumeet Anders PA PA cp Campbell, Kaitlyn, RN RN kc6 Rosio Vital [id number] Ivette Perez bc6 Corrections: (The following items were deleted from the chart) 10:31 10:27 Chief complaint: EMS states: pt woke up this morning with generalized weakness kc6 and dizziness. states pt was also kicked out of [facility] he [facility] staying [facility]. kc6 15:44 15:39 Reassessment: spoke with [employer]. stated she will be here in approximately kc6 30min for transport back to the [facility] kc6
--- NOTE | 2022-12-09 15:17 | EDPHYS ---
Physician Documentation [facility] Name: Arun Mccall Age: 77 yrs Sex: Male : 1945 Arrival Date: 12/09/2022 Time: 10:20 Bed 13 Private MD: ED Physician Atul Martinez HPI: 12/09 10:40 This 77 yrs old Male presents to ER via EMS with complaints of General Weakness, cp Dizziness. 13:59 Patient now c/o pain to neck since being moved around to have recent CT and MRI. cp Historical: - Allergies: 10:28 fenofibrate nanocrystallized; kc6 10:28 insulin degludec; kc6 - PMHx: 10:28 Anxiety; Diabetes - IDDM; Hypertension; kc6 - PSHx: 10:28 colon sx; kc6 - Immunization history:: Adult Immunizations unknown. - Social history:: Smoking status: unknown. ROS: 10:20 Constitutional: Negative for body aches, chills, fever, poor PO intake. cp 10:20 Eyes: Negative for injury, pain, redness, and discharge. cp 10:20 Cardiovascular: Negative for chest pain, palpitations. 10:20 Neuro: Positive for dizziness, weakness. 10:20 All other systems are negative. Exam: 10:45 Head/Face: Normocephalic, atraumatic. cp 10:45 Constitutional: The patient appears in no acute distress, alert, awake, non-toxic, well developed, well nourished, obese. 10:48 ECG was reviewed by the Attending Physician. cp Vital Signs: 10:27 BP 166 / 99; Pulse 58; Resp 18 S; Temp 98.1(O); Pulse Ox 100% on R/A; kc6 11:23 BP 138 / 73; Pulse 56; Resp 12 S; Pulse Ox 100% on R/A; kc6 12:31 BP 147 / 81; Pulse 50; Resp 25 S; Pulse Ox 100% on R/A; kc6 13:42 BP 157 / 70; Pulse 59; Resp 21; Pulse Ox 100% on R/A; kc6 15:25 BP 156 / 77; Pulse 57; Resp 18 S; Pulse Ox 99% on R/A; kc6 MDM: 10:32 Patient medically screened. cp 05/13 10:33 Order name: Basic Metabolic Panel; Complete Time: 11:55 cp 12/09 12:23 Interpretation: Normal except: NA 134; GLUC 186; CRE 2.19; GFR 30. cp 12/09 10:33 Order name: CBC with Diff; Complete Time: 11:46 cp 12/09 12:23 Interpretation: Normal except: HGB 13.1. cp 12/09 10:33 Order name: Magnesium; Complete Time: 11:55 cp 12/09 10:33 Order name: NT PRO-BNP; Complete Time: 11:55 cp 12/09 10:33 Order name: PT-INR; Complete Time: 11:46 cp 12/09 10:33 Order name: Troponin HS; Complete Time: 11:55 cp 12/09 10:47 Order name: Urinalysis W/Microscopic; Complete Time: 13:48 cp 12/09 13:48 Interpretation: Normal except: UGLUC 1+; UBLD Trace; UPROT 3+. cp 12/09 10:33 Order name: XRAY Chest (1 view); Complete Time: 11:46 cp 12/09 14:02 Order name: CT Head C Spine; Complete Time: 14:44 cp 12/09 14:44 Interpretation: Reviewed report. 12/09 10:33 Order name: EKG; Complete Time: 10:34 cp 12/09 10:35 Order name: Social Service Consult EDMS 12/09 12:24 Order name: Diet Regular; Complete Time: 12:24 cp 12/09 10:33 Order name: Cardiac monitoring; Complete Time: 10:43 cp 12/09 10:33 Order name: EKG - Nurse/Tech; Complete Time: 10:43 cp 12/09 10:33 Order name: IV Saline Lock; Complete Time: 11:23 cp 12/09 10:33 Order name: Labs collected and sent; Complete Time: 11:15 cp 12/09 10:33 Order name: O2 Per Protocol; Complete Time: 10:34 cp 12/09 10:33 Order name: O2 Sat Monitoring; Complete Time: 10:34 cp EC:48 Rate is 56 beats/min. Rhythm is regular. NM interval is normal. QRS interval is cp prolonged at 124 msec. QT interval is normal. T waves are Inverted in leads III, aVR. Interpreted by me. Reviewed by me. Administered Medications: No medications were administered Disposition Summary: 12/09/22 15:16 Discharge Ordered Location: Home cp Problem: new cp Symptoms: have improved cp Condition: Stable cp Diagnosis - Weakness cp - Dizziness and giddiness cp Followup: cp - With: Private Physician - When: 1 - 2 days - Reason: Recheck today's complaints Discharge Instructions: - Discharge Summary Sheet cp - Dizziness cp - Weakness cp Forms: - Medication Reconciliation Form cp - Thank You Letter cp - Antibiotic Education cp - Prescription Opioid Use cp Signatures: Dispatcher [employer] EDMS uSmeet Anders PA PA cp Rob Burden MD MD rn3 Lacie Avitia RN RN kc6 Corrections: (The following items were deleted from the chart) 11:01 10:47 Head Brain Wo Cont+CT.RAD.BRZ ordered. EDMS EDMS 14:17 14:01 C Spine Wo Con+CT.RAD.BRZ ordered. EDMS EDMS
[2022-12-09 17:02] VITALS: TEMP 98.1
[2022-12-09 17:17] VITALS: BP 156/77; O2SAT 99
--- NOTE | 2022-12-10 14:44 | EKG ---
Test Date: 2022-12-09 Test Time: 10:40:08 Curriculum Consultant: WAN MEASUREMENT RESULTS: Intervals: Rate: 56 TX: 184 QRSD: 124 QT: 476 QTc: 459 [place]: P: 27 TX: 184 QRS: -34 T: -6 INTERPRETIVE STATEMENTS: Sinus bradycardia Left axis deviation Right bundle branch block Inferior infarct, age undetermined Abnormal ECG Compared to ECG 11/29/2022 13:31:47 Left-axis deviation now present Right bundle-branch block now present Myocardial infarct finding now present Sinus rhythm no longer present Atrial premature complex(es) no longer present Incomplete right bundle-branch block no longer present Electronically Signed On 12-10-22 14:43:16 CDT by Luis Armando Atkinson
== END 2022-12-09 16:13 | disposition home or self-care (01) ==
LOC: ER 10:20
DX: R53.1 Weakness (principal); R42 Dizziness and giddiness; M54.2 Cervicalgia; I10 Essential (primary) hypertension; Z88.8 Allergy status to other drugs, medicaments and biological substances
CPT/HCPCS: 36415; 70450; 71045; 72125; 80048; 81001; 83735; 83880; 84484; 85025; 85610; 93005; 99284

== ENCOUNTER 2022-12-24 17:31 | Emergency (ER) | payer OTHER ==
--- OUTSIDE RECORDS SUMMARY | 2022-12-24 17:35 | XMS REPORT | Continuity of Care Document ---
:1945 Author Organization [facility] t Address [address] [place] [address] [place] [id number] Care Team Providers Name Role Phone Miller_S_AH Attending Clinician Unavailable Ajibade_O_AH Attending Clinician Unavailable Ige-Odunfernando_J_AH Attending Clinician Unavailable Ivan Contreras Attending Clinician Unavailable Ivan Contreras Attending Clinician Unavailable Miller_S_AH Admitting Clinician Unavailable Ajibade_O_AH Admitting Clinician Unavailable Ige-Odunfernando_J_AH Admitting Clinician Unavailable Ivan Contreras Admitting Clinician Unavailable Payers Payer Name Policy Type Policy Number Effective Date Expiration Date Emy mack [facility] [place] - [id number] [id number] [employer] 00:00:00 (MEDICARE REPLACEMENT/ADVANT AGE - HMO) Problems Condition Condition Condition Status Onset Resolution Last Treating Co mments Source Name Details Category Date Date Treatment Clinician Date Senile Senile Problem Active [facility] purpura Purpura 10-27 Family 00:00: Practic 00 [...] Date Date Clinician No Known Drug Active [facility] Drug Active [facility] Social History Smoking Status Start Date Stop Date Source Former [facility]oker [facility] Medications Ordered Filled Start Stop Current Ordering Indication Dosage Frequency Signature Comments Components Source Medication Medication Date Date Medication? Clinician (SIG) Name Name Asprin Ec Asprin Ec No 1 Q1D Asprin Ec [facility] Low Dose 81 Low Dose 81 Low Dose Family mg mg 81 mg Practic tablet,juan tablet,juan tablet,del e yed release yed release ayed Take 1 Take 1 release tablet tablet Take 1 every day every day tablet by oral by oral every day route. route. by oral route. hydroxyzine hydroxyzine No 2 Q12H hydroxyzin [facility] HCl 25 mg HCl 25 mg e [...] night. metoprolol metoprolol No 1 BID metoprolol [facility] tartrate 50 tartrate 50 tartrate Family mg [...] Comments Source Height 2020-10-27 00:00:00 70 [in_i] [facility] BMI (Body Mass 2020-10-27 00:00:00 37.3 kg/m2 [facility] Index) Practice Body Weight 2020-10-27 00:00:00 260 [lb_av] [facility] BP Diastolic 2020-09-23 00:00:00 86 mm[Hg] [facility] Height 2020-09-23 00:00:00 70 [in_i] [facility] BMI (Body Mass 2020-09-23 00:00:00 37.3 kg/m2 [facility] Index) Practice BP Systolic 2020-09-23 00:00:00 136 mm[Hg] [facility] Body Weight 2020-09-23 00:00:00 260 [lb_av] [facility] Height/Length 2021-08-16 11:09:21 177.80 cm Measured Weight Dosing 2021-08-16 11:09:21 108.86 kg Procedures Procedure Date / Time Performed Performing Clinician [facility] e Screening for Malignant [facility] Neoplasm of Prostate Practice Extraction of Cataract [facility] Practice Removal of Colon [facility] Encounters Start End Encounter Admission Attending Care Care Encounter Source Date/Time Date/Time Type Type Clinicians Facility Department ID 2021-01-04 2021-01-04 Outpatient Miller_S_AH VFP VFP 792 [facility] 03:27:00 03:27:00 [id number] Family Practic e 2020-11-10 2020-11-10 Outpatient Ajibade_O_A VFP VFP 792 [facility] 06:52:00 06:52:00 H [id number] Family Practic e 2020-10-27 2020-10-27 Outpatient Ajibade_O_A VFP VFP 792 [facility] 01:51:00 01:51:00 H [id number] Family Practic e 2020-10-27 2020-10-27 [place] [facility]FP [place] - [id number] [place] ill[place] 00:00:00 00:00:00 Sukhwinder Carrasquillo Famil y BODY AND FENDER MECHANIC: [id number] Medical - Pract corazon Tammi Crowder, [email or web address] [facility] [id number] , Ph. 2020-10-21 2020-10-21 Outpatient Ajibade_O_A VFP VFP [phone] [facility] 08:40:00 08:40:00 H [id number] Family Practic e 2020-09-23 2020-09-23 Outpatient Ajibade_O_A VFP VFP [id number] [place] 04:30:00 04:30:00 H [id number] Family Practic e 2020-09-23 2020-09-23 [place] VFP [place] - [id number] [facility] 00:00:00 00:00:00 Sukhwinder Carrasquillo y BODY AND FENDER MECHANIC: [id number] Medical - Pract corazon Tammi Crowder, [email or web address] [facility] [address] , Ph. 2020-03-25 2020-03-25 Outpatient Ajibade_O_A VFP VFP [phone] [facility] 04:36:00 04:36:00 H [id number] Family Practic e 2020-03-25 2020-03-25 Outpatient Ajibade_O_A VFP VFP [phone] [facility] 04:36:00 04:36:00 H [id number] Family Practic e 2020-03-25 2020-03-25 Outpatient Ajibade_O_A VFP VFP [phone] [facility] 04:36:00 04:36:00 H [id number] Family Practic e 2020-03-25 2020-03-25 Outpatient Ajibade_O_A VFP VFP [phone] [place] 04:36:00 04:36:00 H [id number] Family Practic e 2019-09-17 2019-09-17 Outpatient Ige-Odunuga VFP VFP [phone] [place] 07:13:00 07:13:00 _Maximus_ [id number] Family Practic e 2019-09-17 2019-09-17 [facility] [phone] [facility] 07:13:00 07:13:00 _J_ [id number] Family Practic e 2019-07-03 2019-07-08 Inpatient 1 Ivan Contreras [facility] PSY [id number] 10:34:00 13:25:00 Ivan Contreras [facility] Results Test Description Test Time Test Comments [...] to the main Lab for analysis. POC [id number] 07:11:51 Test Item Value Reference Range Interpretation Comments Glucose POC (test 118 mg/dL 70-115 H Notify RN or MDIf you code = Glucose POC) consider your patient critically ill, the Sj-Accu Chec k Infrom II meter should not be used for Glucos e determination. Draw a venous Glucose and send to the main Lab for analysis. POC [id number] 19:44:19 Test Item Value Reference Range Interpretation Comments Glucose POC (test 151 mg/dL 70-115 H Notify RN or MDIf you code = Glucose POC) consider your patient critically ill, the Sj-Accu Chec k Infrom II meter should not be used for Glucos e determination. Draw a venous Glucose and send to the main Lab for analysis. POC [id number] 15:05:21 Test Item Value Reference Range Interpretation Comments Glucose POC (test 119 mg/dL 70-115 H Notify RN or MDIf you code = Glucose POC) consider your patient critically ill, the Sj-Accu Chec k Infrom II meter should not be used for Glucos e determination. Draw a venous Glucose and send to the main Lab for analysis. POC [id number] 11:16:17 Test Item Value Reference Range Interpretation Comments Glucose POC (test 132 mg/dL 70-115 H Notify RN or MDIf you code = Glucose POC) consider your patient critically ill, the Sj-Accu Chec k Infrom II meter should not be used for Glucos e determination. Draw a venous Glucose and send to the main Lab for analysis. POC [id number] 06:17:22 Test Item Value Reference Range Interpretation Comments Glucose POC (test 121 mg/dL 70-115 H Notify RN or MDIf you code = Glucose POC) consider your patient critically ill, the Sj-Accu Chec k Infrom II meter should not be used for Glucos e determination. Draw a venous Glucose and send to the main Lab for analysis. POC [id number] 20:10:13 Test Item Value Reference Range Interpretation Comments Glucose POC (test 133 mg/dL 70-115 H If you con food processing plant manager your code = Glucose POC) patient critically ill, the Sj-Accu Check Infrom II meter should not be used for Glucose determination. Draw a venous Glucose and send to the main Lab for analysis. POC [id number] 06:13:49 Test Item Value Reference Range Interpretation Comments Glucose POC (test 116 mg/dL 70-115 H If you con food processing plant manager your code = Glucose POC) patient critically ill, the Sj-Accu Check Infrom II meter should not be used for Glucose determination. Draw a venous Glucose and send to the main Lab for analysis. POC [id number] 19:55:46 Test Item Value Reference Range Interpretation Comments Glucose POC (test 121 mg/dL 70-115 H If you con food processing plant manager your code = Glucose POC) patient critically ill, the Sj-Accu Check Infrom II meter should not be used for Glucose determination. Draw a venous Glucose and send to the main Lab for analysis. POC [id number] 16:21:40 Test Item Value Reference Range Interpretation Comments Glucose POC (test 126 mg/dL 70-115 H Notify RN or MDIf you code = Glucose POC) consider your patient critically ill, the Sj-Accu Chec k Infrom II meter should not be used for Glucos e determination. Draw a venous Glucose and send to the main Lab for analysis. POC [id number] 12:10:14 Test Item Value Reference Range Interpretation Comments Glucose POC (test 138 mg/dL 70-115 H Notify RN or MDIf you code = Glucose POC) consider your patient critically ill, the Sj-Accu Chec k Infrom II meter should not be used for Glucos e determination. Draw a venous Glucose and send to the main Lab for analysis. POC [id number] 06:38:10 Test Item Value Reference Range Interpretation Comments Glucose POC (test 112 mg/dL 70-115 If you con food processing plant manager your code = Glucose POC) patient critically ill, the Sj-Accu Check Infrom II meter should not be used for Glucose determination. Draw a venous Glucose and send to the main Lab for analysis. POC [id number] 19:46:42 Test Item Value Reference Range Interpretation Comments Glucose POC (test 107 mg/dL 70-115 If you con food processing plant manager your code = Glucose POC) patient critically ill, the Sj-Accu Check Infrom II meter should not be used for Glucose determination. Draw a venous Glucose and send to the main Lab for analysis. RPR [id number] 15:31:56 Test Item Value Reference Range Interpretation Comments RPR Qual (test code = RPR Qual) Non-Reactive Non-Reactive Reactive Control (test code = Reactive Reactive Control) Weak Reactive Control (test Weak Reactive code = Weak Reactive Control) Non-Reactive Control (test code Non-Reactive = Non-Reactive Control) Lot # (test code = Lot #) [id number] Expiration Dt (test code = 05-29-20 N Expiration Dt) POC [id number] 15:06:05 Test Item Value Reference Range Interpretation Comments Glucose POC (test 118 mg/dL 70-115 H Notify RN or MDIf you code = Glucose POC) consider your patient critically ill, the Sj-Accu Chec k Infrom II meter should not be used for Glucos e determination. Draw a venous Glucose and send to the main Lab for analysis. POC [id number] 11:12:35 Test Item Value Reference Range Interpretation Comments Glucose POC (test 146 mg/dL 70-115 H If you con food processing plant manager your code = Glucose POC) patient critically ill, the Sj-Accu Check Infrom II meter should not be used for Glucose determination. Draw a venous Glucose and send to the main Lab for analysis. POC [id number] 07:42:11 Test Item Value Reference Range Interpretation Comments Glucose POC (test 122 mg/dL 70-115 H If you con food processing plant manager your code = Glucose POC) patient critically ill, the Sj-Accu Check Infrom II meter should not be used for Glucose determination. Draw a venous Glucose and send to the main Lab for analysis. POC [id number] 19:17:06 Test Item Value Reference Range Interpretation Comments Glucose POC (test 114 mg/dL 70-115 If you con food processing plant manager your code = Glucose POC) patient critically ill, the Sj-Accu Check Infrom II meter should not be used for Glucose determination. Draw a venous Glucose and send to the main Lab for analysis. Urinalysis [id number] 12:27:32 Test Item Value Reference Range Interpretation Comments UA WBC (test code = UA WBC) 0-5 0-5 UA RBC (test code = UA RBC) 0-5 0-5 UA Squam Epithelial (test code = UA 0-5 Squam Epithelial) Comprehensive Metabolic [id number] 12:12:02 Test Item Value Reference Range Interpretation [...] A/G 1.6 ratio N Ratio) Comprehensive Metabolic [id number] 12:12:02 Test Item Value Reference Range Interpretation [...] National Kidney Foundation, http://nkdep.ni h.gov Comprehensive Metabolic [id number] 12:12:02 Test Item Value Reference Range Interpretation [...] ag e have not been validated by [facility] MDRD study and should be interpreted [...] ag e have not been validated by [facility] MDRD study and should be interpreted wit h caution. eGFR R esult Interpretation: eGFR > or = 60 is in the Normal RangeeGF R < 60 may mean kid kyle diseaseeGFR < 1 5 may mean kidney failure Rang es recommended by the National Kidney Foundation, http://nkdep.ni h.gov Urine Drug [id number] 12:01:40 Test Item Value Reference Range Interpretation [...] if desired . Complete Blood Count with [id number] 11:38:14 Test Item Value Reference Range Interpretation [...] code = IPF) 0 % N Automated [id number] 11:38:14 Test Item Value Reference Range Interpretation Comments Neutro Auto (test code = Neutro 76.4 % 36.0-70.0 H Auto) Lymph Auto (test code = Lymph Auto) 15.8 % 12.0-44.0 Roane Auto (test code = Roane Auto) 6.7 % 0.0-11.0 Eos, Auto (test code = Eos, Auto) 0.3 % 0.0-7.0 Basophil Auto (test code = Basophil 0.4 % 0.0-2.0 Auto) Neutro Absolute (test code = Neutro 5.3 x10 1.6-7.4 Absolute) Lymph Absolute (test code = Lymph 1.09 x10 .50-4.60 Absolute) Roane Absolute (test code = Roane .46 x10 .00-1.20 Absolute) Eos Absolute (test code = Eos 0.02 x10 0.00-0.74 Absolute) Baso Absolute (test code = Baso 0.03 x10 0.00-0.21 Absolute) IG [id number] 11:38:14 Test Item Value Reference Range Interpretation Comments IG (test code = IG) 0.4 % 0.0-5.0 IG Abs (test code = IG Abs) 0 x10 N Urinalysis with Culture, if [id number] 11:37:19 Test Item Value Reference Range Interpretation [...] Micro Ind?) rule GL_SJM_UA_MICRO _IN D POC [id number] 11:07:06 Test Item Value Reference Range Interpretation Comments Glucose POC (test 123 mg/dL 70-115 H If you con food processing plant manager your code = Glucose POC) patient critically ill, the Sj-Accu Check Infrom II meter should not be used for Glucose determination. Draw a venous Glucose and send to the main Lab for analysis.
[2022-12-24 20:28] LABS: Absolute Lymphocytes (CBC) 0.8 K/uL (0.7-4.9); Hematocrit 43.3 % (39.6-49.0); Lymphocytes % 6.6 % (15.3-44.8); MCV 89.5 fL (80-100); MPV 10.5 fL (7.6-11.3); RBC Red Blood Cell Count 4.84 M/uL (4.33-5.43)
[2022-12-24 20:43] LABS: Potassium 4.5 mEq/L (3.5-5.1)
[2022-12-24 20:44] LABS: Albumin 3.5 g/dL (3.4-5.0); Bilirubin Total 0.7 mg/dL (0.2-1.0); Protein, Total 8.1 g/dL (6.4-8.2)
[2022-12-24] MEDS ORDERED: FAMOTIDINE 20 MG/2 ML VIAL IV ONE (20:45)
[2022-12-24] MEDS ORDERED: ONDANSETRON 4 MG/2 ML VIAL ONE (20:45)
--- NOTE | 2022-12-24 21:15 | RAD REPORT ---
EXAM DESCRIPTION: CTAbdomen Pelvis Wo Contrast - 12/24/2022 8:44 pm CLINICAL HISTORY: ABD PAIN COMPARISON: <Comparisons> TECHNIQUE: CT of the abdomen and pelvis was performed. All CT scans are performed using dose optimization technique as appropriate and may include automated exposure control or mA/KV adjustment according to patient size. FINDINGS: Lower chest: Mitral annular calcifications. Coronary calcifications. No pericardial effusi on. Liver: Cirrhotic liver morphology. Biliary: No biliary ductal dilatation. Stomach: No significant focal abnormality. Duodenum: No significant focal abnormality. Pancreas: No significant abnormality. Spleen: No significant abnormality. 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 No follow-up is required. Kidney/ureter: No hydronephrosis. Nonobstructing right renal calculi. Punctate stones versus renal va scular calcifications in the left kidney. Bilateral renal lesions, most of which are consistent with simple cysts. There are a couple of possible lesions and/or contour bulges which cannot be characteri zed with absolute certainty. Retroperitoneum: No retroperitoneal adenopathy. Vascular: No aneurysm. Atherosclerosis. Bowel: Ventral hernias containing a short segment of the ventral wall of the small bowel but without complicating features.. Peritoneum: No ascites or free air. Bladder: Grossly unremarkable. Reproductive: No adnexal masses. Bones: No acute fracture. Multilevel degenerative changes are present in the spine. Other: n/a IMPRESSION: No acute intra-abdominal or pelvic finding. Bilateral renal lesions, the majority of which are benign cysts. Abnormal contour of portions of the right kidney which could be due to areas of selective atrophy, however suggest nonemergent ultrasound to exclude underlying solid lesion.
[2022-12-24] MEDS ORDERED: NA CHLORIDE 0.9% 500 ML ONE (21:35)
--- NOTE | 2022-12-24 22:09 | RAD REPORT ---
EXAM DESCRIPTION: RAD - Chest Single View - 12/24/2022 9:53 pm CLINICAL HISTORY: COUGH COMPARISON: Chest Single View dated 12/09/2022; Chest Single View dated 11/29/2022; Chest Single View d ated 11/28/2022; Chest Single View dated 09/04/2022 FINDINGS: Lines: None. Lungs: Low lung volumes with linear basilar opacities. Pleural: No significant pleural effusions or pneumothorax. Cardiac: The heart size is within normal limits. Mediastinum: Within normal limits. Bones: No acute fractures. Other: None IMPRESSION: Low lung volumes and likely atelectasis. No other acute process identified.
--- NOTE | 2022-12-24 22:58 | ER ---
Nurse's Notes [facility] Name: Arun Mccall Age: 77 yrs Sex: Male : 1945 Arrival Date: 12/24/2022 Time: 17:31 Bed 17 Private MD: Diagnosis: Diarrhea, unspecified Presentation: 12/24 18:42 Chief complaint: Patient states: "Diarrhea ever since I got out of the hospital about 2 nj1 weeks ago". Getting worse. 18:42 Coronavirus screen: Vaccine status: Patient reports receiving the 1st dose of the Covid nj1 vaccine. Ebola Screen: Patient denies travel to an Ebola-affected area in the 21 days before illness onset. Initial Sepsis Screen: Does the patient meet any 2 criteria? No. Patient's initial sepsis screen is negative. Does the patient have a suspected source of infection? No. Patient's initial sepsis screen is negative. Risk Assessment: Do you want to hurt yourself or someone else? Patient reports no desire to harm self or others. Onset of symptoms was December 10, 2022. 18:42 Method Of Arrival: EMS: [facility] 18:42 Acuity: CHAYITO 3 nj1 Historical: - Allergies: 18:42 fenofibrate nanocrystallized; nj1 18:42 insulin degludec; nj1 - PMHx: 18:42 Anxiety; Diabetes - IDDM; Hypertension; nj1 - PSHx: 18:42 colon sx; nj1 - Immunization history:: Client reports receiving the 1st dose of the Covid vaccine. - Social history:: Smoking status: Patient denies any tobacco usage or history of. Screenin:50 [facility] ED Fall Risk Assessment (Adult) History of falling in the last 3 months, kc6 including since admission No falls in past 3 months (0 pts) Confusion or Disorientation No (0 pts) Intoxicated or Sedated No (0 pts) Impaired Gait No (0 pts) Mobility Assist Device Used Yes (1 pt) Altered Elimination No (0 pt) Score/Fall Risk Level 0 - 2 = Low Risk Oriented to surroundings, Maintained a safe environment, Educated pt \\T\\ family on fall prevention, incl call for assistance when getting out of bed, Assessed \\T\\ reinforced patient's understanding of fall precautions, Hourly rounding (assess needs \\T\\ fall precautionary measures) done. Abuse screen: Denies threats or abuse. Denies injuries from another. Nutritional screening: No deficits noted. Tuberculosis screening: No symptoms or risk factors identified. Assessment: 18:52 General: Appears in no apparent distress. comfortable, Behavior is calm, cooperative, kc6 appropriate for age. Pain: Denies pain. Neuro: Gates Agitation-Sedation Scale (RASS): 0 - Alert and Calm Level of Consciousness is awake, alert, obeys commands, Oriented to person, place, time, situation, Appropriate for age. Cardiovascular: Capillary refill < 3 seconds. Respiratory: Airway is patent Trachea midline Respiratory effort is even, unlabored, Respiratory pattern is regular, symmetrical. GI: Abdomen is flat, non-distended, Bowel sounds present X 4 quads. Abd is soft and non tender X 4 quads. Reports diarrhea, nausea, Patient currently denies vomiting. : No signs and/or symptoms were reported regarding the genitourinary system. EENT: No signs and/or symptoms were reported regarding the EENT system. Derm: No signs and/or symptoms reported regarding the dermatologic system. Skin is intact, Skin is pink, warm \\T\\ dry. Musculoskeletal: No signs and/or symptoms reported regarding the musculoskeletal system. Circulation, motion, and sensation intact. Capillary refill < 3 seconds, Range of motion: intact in all extremities. 20:58 General: Appears in no apparent distress. comfortable, Behavior is calm, cooperative, lg3 appropriate for age. Pain: Denies pain. Neuro: No deficits noted. Gates Agitation-Sedation Scale (RASS): 0 - Alert and Calm Level of Consciousness is awake, alert, obeys commands, Oriented to person, place, time, situation. Cardiovascular: No deficits noted. Denies chest pain, shortness of breath, Capillary refill < 3 seconds Clubbing of nail beds is absent JVD is absent Patient's skin is warm and dry. Respiratory: No deficits noted. Airway is patent Trachea midline Respiratory effort is even, unlabored, Respiratory pattern is regular, symmetrical. GI: No deficits noted. Abdomen is round non-distended, obese, Bowel sounds present X 4 quads. : No deficits noted. No signs and/or symptoms were reported regarding the genitourinary system. EENT: No deficits noted. No signs and/or symptoms were reported regarding the EENT system. Derm: No deficits noted. No signs and/or symptoms reported regarding the dermatologic system. Skin is intact, is thin, Skin is dry, Skin is normal, Skin temperature is warm. Musculoskeletal: No deficits noted. No signs and/or symptoms reported regarding the musculoskeletal system. Circulation, motion, and sensation intact. Capillary refill < 3 seconds, Range of motion: intact in all extremities. 22:15 Reassessment: Patient appears in no apparent distress at this time. No changes from lg3 previously documented assessment. Patient and/or family updated on plan of care and expected duration. Pain level reassessed. Patient is alert, oriented x 3, equal unlabored respirations, skin warm/dry/pink. 23:21 Reassessment: Patient appears in no apparent distress at this time. No changes from lg3 previously documented assessment. Patient and/or family updated on plan of care and expected duration. Pain level reassessed. Patient is alert, oriented x 3, equal unlabored respirations, skin warm/dry/pink. Patient states feeling better. Vital Signs: 18:42 BP 122 / 83; Pulse 84; Resp 18; Temp 98.3(O); Pulse Ox 98% on R/A; Weight 86.18 kg; nj1 Height 5 ft. 10 in. ; Pain 10/10; 21:09 BP 139 / 68; Pulse 74; Resp 17 S; Pulse Ox 99% on R/A; lg3 22:15 BP 141 / 73; Pulse 66; Resp 16 S; Pulse Ox 98% on R/A; lg3 23:21 BP 136 / 71; Pulse 70; Resp 16 S; Pulse Ox 99% on R/A; lg3 18:42 Body Mass Index 27.26 (86.18 kg, 177.8 cm) nc1 18:42 Pain Scale: Adult [facility] ED Course: 17:55 Patient arrived in ED. am2 18:12 Sumeet Anders PA is PHCP. cp 18:12 Sumeet Moody MD is Attending Physician. cp 18:42 Arm band placed on. nc1 18:50 Lacie Avitia, RN is Primary Nurse. [facility] 18:50 Patient has correct armband on for positive identification. Bed in low position. Call [facility] light in reach. Side rails up X 1. 19:52 Triage completed. nj1 20:18 CBC with Diff Sent. lg3 20:18 CMP Sent. lg3 20:18 Lipase Sent. lg3 20:45 Abdomen In Process Unspecified. EDMS 20:58 Client placed on continuous cardiac and pulse oximetry monitoring. NIBP monitoring lg3 applied. Door closed. Noise minimized. Warm blanket given. 20:58 Inserted saline lock: 22 gauge in right forearm, using aseptic technique. Blood lg3 collected. 21:50 CDIFF Sent. rv1 21:50 Ova And Parasites Sent. rv1 21:50 Rotavirus Antigen Sent. rv1 21:50 Stool Culture Sent. rv1 21:55 XRAY Chest (1 view) In Process Unspecified. EDMS 23:20 No provider procedures requiring assistance completed. IV discontinued, intact, lg3 bleeding controlled, No redness/swelling at site. Pressure dressing applied. Administered Medications: 20:53 Drug: Famotidine IVP 20 mg Route: IVP; Site: right forearm; lg3 22:45 Follow up: Response: No adverse reaction pf1 20:53 Drug: Ondansetron IVP 4 mg Route: IVP; Site: right forearm; lg3 22:45 Follow up: Response: No adverse reaction pf1 21:30 Drug: NS 0.9% IV 250 ml Route: IV; Rate: bolus; Site: right forearm; lg3 22:25 Follow up: IV Status: Completed infusion; IV Intake: 250ml lg3 22:45 Not Given (Physician Discretion): NS 0.9% IV 250 ml IV at 75 ml/hr once pf1 23:04 Drug: Diphenoxylate-Atropine PO 2 tabs Route: PO; lg3 23:21 Follow up: Response: No adverse reaction lg3 Medication: 23:20 VIS not applicable for this client. lg3 Intake: 22:25 IV: 250ml; Total: 250ml. lg3 Outcome: 22:57 Discharge ordered by . cp 23:20 Discharged to home via wheelchair. lg3 23:20 Condition: stable 23:20 Discharge instructions given to patient, Instructed on discharge instructions, follow up and referral plans. medication usage, Demonstrated understanding of instructions, follow-up care, medications, Prescriptions given X 1. 23:32 Patient left the ED. lg3 Signatures: Dispatcher [employer] EDKY Sumeet Anders PA PA cp Paige Roper am2 Miriam Driscoll, RN RN lg3 Lacie Avitia RN RN kc6 Guadalupe Lee, RN RN pf1 Butt, Tammi rv1 Court Mistry, RN RN nj1
--- NOTE | 2022-12-24 22:58 | EDPHYS ---
Physician Documentation [facility] Name: Arun Mccall Age: 77 yrs Sex: Male : 1945 Arrival Date: 12/24/2022 Time: 17:31 Bed 17 Private MD: ED Physician Smueet Moody HPI: 12/24 20:00 This 77 yrs old Male presents to ER via EMS with complaints of Diarrhea. cp 20:00 The patient presents to the emergency department with nausea, that is mild, diarrhea, 6 cp times today. 20:00 Onset: The symptoms/episode began/occurred patient reports since discharge from this hospital about 2 weeks ago. 20:00 Possible causes: unknown. Associated signs and symptoms: Pertinent positives: abdominal cp pain, cough, Pertinent negatives: anorexia, constipation, fever, GI bleeding, vomiting. Severity of symptoms: in the emergency department the symptoms are unchanged despite home interventions. Historical: - Allergies: 18:42 fenofibrate nanocrystallized; nj1 18:42 insulin degludec; nj1 - PMHx: 18:42 Anxiety; Diabetes - IDDM; Hypertension; nj1 - PSHx: 18:42 colon sx; nj1 - Immunization history:: Client reports receiving the 1st dose of the Covid vaccine. - Social history:: Smoking status: Patient denies any tobacco usage or history of. ROS: 20:05 Constitutional: Negative for fever. cp 20:05 Eyes: Negative for injury, pain, redness, and discharge. cp 20:05 ENT: Negative for drainage from ear(s), ear pain, sore throat, difficulty swallowing, difficulty handling secretions. 20:05 Cardiovascular: Negative for chest pain, edema. 20:05 Respiratory: Positive for cough. 20:05 Abdomen/GI: Positive for abdominal pain, nausea, diarrhea, Negative for constipation, black/tarry stool, rectal bleeding. 20:05 : Negative for urinary symptoms. 20:05 Neuro: Positive for weakness, Negative for altered mental status, dizziness, headache, syncope. 20:05 All other systems are negative. Exam: 20:20 Constitutional: The patient appears in no acute distress, alert, awake, cp non-diaphoretic, non-toxic, well developed, well nourished, unkempt. 20:20 Head/Face: Normocephalic, atraumatic. cp 20:20 Eyes: Periorbital structures: appear normal, Conjunctiva: normal, no exudate, no injection, Sclera: no appreciated abnormality, Lids and lashes: appear normal, bilaterally. 20:20 ENT: External ear(s): are unremarkable, Nose: is normal, Mouth: is normal, Posterior pharynx: is normal, airway is patent, no erythema, no exudate. 20:20 Chest/axilla: Inspection: normal. 20:20 Cardiovascular: Rate: normal, Rhythm: regular, Edema: is not appreciated, JVD: is not appreciated. 20:20 Respiratory: the patient does not display signs of respiratory distress, Respirations: normal, no use of accessory muscles, no retractions, labored breathing, is not present, Breath sounds: are clear throughout, no decreased breath sounds, no stridor, no wheezing. 20:20 Abdomen/GI: Inspection: abdomen appears normal, Bowel sounds: active, all quadrants, Palpation: soft, in all quadrants, mild abdominal tenderness, in all quadrants, rebound tenderness, is not appreciated, involuntary guarding, is not appreciated. 20:20 Back: CVA tenderness, is absent. 20:20 Neuro: Orientation: to person, place \T\ time. Mentation: is normal, Motor: moves all fours, strength is normal, Sensation: is normal. Vital Signs: 18:42 BP 122 / 83; Pulse 84; Resp 18; Temp 98.3(O); Pulse Ox 98% on R/A; Weight 86.18 kg; nj1 Height 5 ft. 10 in. ; Pain 10/10; 21:09 BP 139 / 68; Pulse 74; Resp 17 S; Pulse Ox 99% on R/A; lg3 22:15 BP 141 / 73; Pulse 66; Resp 16 S; Pulse Ox 98% on R/A; lg3 23:21 BP 136 / 71; Pulse 70; Resp 16 S; Pulse Ox 99% on R/A; lg3 18:42 Body Mass Index 27.26 (86.18 kg, 177.8 cm) [facility] 18:42 Pain Scale: Adult [facility] MDM: 18:38 Patient medically screened. [facility] 22:56 Data reviewed: vital signs, nurses notes, lab test result(s), radiologic studies, CT cp scan, plain films. 22:56 Differential diagnosis: gastritis, viral gastroenteritis, gastroenteritis, dehydration, cp colitis. Consideration of Admission/Observation Escalation of care including admission/observation considered. I considered the following discharge prescriptions or medication management in the emergency department Medications were administered in the Emergency Department. See MAR. Care significantly affected by the following chronic conditions: Diabetes, Hypertension. Counseling: I had a detailed discussion with the patient and/or guardian regarding: the historical points, exam findings, and any diagnostic results supporting the discharge/admit diagnosis, lab results, radiology results, to return to the emergency department if symptoms worsen or persist or if there are any questions or concerns that arise at home. Response to treatment: the patient's symptoms have markedly improved after treatment, and as a result, I will discharge patient. Special discussion: Based on the patient's Hx, exam, and Dx evaluation, there is no indication for emergent surgery or inpatient Tx. It is understood by the patient/guardian that if the Sx's persist or worsen they need to return immediately for re-evaluation. 12/24 19:46 Order name: CBC with Diff; Complete Time: 20:41 12/24 22:46 Interpretation: Abnormal: WBC 11.90; RONNY% 87.7; LYM% 6.6; NEUT A 10.5. 12/24 19:46 Order name: CMP; Complete Time: 21:11 12/24 21:11 Interpretation: Normal except: NA 133; GLUC 176; BUN 40; CRE 2.49; GFR 26; GLOB 4.6; cp A/G 0.8. 12/24 19:46 Order name: Lipase; Complete Time: 21:11 12/24 19:46 Order name: Ova And Parasites 12/24 19:46 Order name: Rotavirus Antigen 12/24 19:46 Order name: Stool Culture 12/24 19:46 Order name: CDIFF 12/24 20:34 Order name: Abdomen ; Complete Time: 22:26 EDMS 12/24 22:26 Interpretation: Report reviewed. 12/24 21:13 Order name: XRAY Chest (1 view); Complete Time: 22:26 12/24 19:46 Order name: IV Saline Lock; Complete Time: 20:18 12/24 19:46 Order name: Labs collected and sent; Complete Time: 20:18 12/24 22:27 Order name: PO challenge: sandwich, juice; Complete Time: 22:45 cp Administered Medications: 20:53 Drug: Famotidine IVP 20 mg Route: IVP; Site: right forearm; lg3 22:45 Follow up: Response: No adverse reaction pf1 20:53 Drug: Ondansetron IVP 4 mg Route: IVP; Site: right forearm; lg3 22:45 Follow up: Response: No adverse reaction pf1 21:30 Drug: NS 0.9% IV 250 ml Route: IV; Rate: bolus; Site: right forearm; lg3 22:25 Follow up: IV Status: Completed infusion; IV Intake: 250ml lg3 22:45 Not Given (Physician Discretion): NS 0.9% IV 250 ml IV at 75 ml/hr once pf1 23:04 Drug: Diphenoxylate-Atropine PO 2 tabs Route: PO; lg3 23:21 Follow up: Response: No adverse reaction lg3 Disposition Summary: 12/24/22 22:57 Discharge Ordered Location: Home cp Problem: new cp Symptoms: have improved cp Condition: Stable cp Diagnosis - Diarrhea, unspecified cp Followup: cp - With: Private Physician - When: 1 - 2 days - Reason: Recheck today's complaints Discharge Instructions: - Discharge Summary Sheet cp - Food Choices to Help Relieve Diarrhea, Adult cp - Diarrhea, Adult cp Forms: - Medication Reconciliation Form cp - Thank You Letter cp - Antibiotic Education cp - Prescription Opioid Use cp Prescriptions: - Lomotil 2.5-0.025 mg Oral Tablet - take 1 tablet by ORAL route every 6 hours As needed; 20 tablet; Refills: 0, cp Product Selection Permitted Signatures: Dispatcher [employer] EDTN Sumeet Moody MD MD cha Page, Corey, PA PA cp Miriam Driscoll, RN RN lg3 Court Mistry RN RN nj1 Guadalupe Lee RN pf1 Corrections: (The following items were deleted from the chart) 20:34 19:47 Abdomen Pelvis W Con+[id number].[id number] ordered. EDTN EDMS 22:46 21:13 Abnormal: WBC 11.90. cp cp 12/25 23:20 12/24 20:00 Associated signs and symptoms: Pertinent positives: abdominal pain, cp Pertinent negatives: anorexia, constipation, fever, GI bleeding, vomiting, cp
[2022-12-24] MEDS ORDERED: DIPHENOX/ATROP SULF 1 TAB PO ONE (23:11)
[2022-12-25 00:41] VITALS: TEMP 98.3
[2022-12-25 00:59] VITALS: BP 136/71; O2SAT 99
[2022-12-25 11:52] LABS: C.diff Antigen/Toxin Ag neg : Tox neg (NEG : NEG)
== END 2022-12-24 23:32 | disposition home or self-care (01) ==
LOC: ER 17:31
DX: R19.7 Diarrhea, unspecified (principal); R53.1 Weakness; R05.9 Cough, unspecified; I10 Essential (primary) hypertension; Z88.8 Allergy status to other drugs, medicaments and biological substances
CPT/HCPCS: 96365; 87045; 85025; 36415; 87177; 82565; 87046; 87209; 87324; 83690; 80053; 87425; 74176; 71045; 96375; 99284; J2405; J7050

== ENCOUNTER 2023-01-03 04:34 | Inpatient (IN) | payer OTHER ==
--- OUTSIDE RECORDS SUMMARY | 2023-01-03 04:37 | XMS REPORT | Continuity of Care Document ---
:1945 Author Organization [facility] t Address [address] [place] [address] [address] [place] [address] Care Team Providers Name Role Phone PCP, PATIENT DOES NOT HAVE A Primary Care Physician Unavaila ble JOSÉ LAMAR Attending Clinician Unavailable Willard AUTOMOBILE SEAT COVER INSTALLERJosé Attending Clinician Miller_S_AH Attending Clinician Unavailable Ajibade_O_AH Attending Clinician Unavailable Ige-Odunfernando_J_AH Attending Clinician Unavailable Ivan Contreras Attending Clinician Unavailable Ivan Contreras Attending Clinician Unavailable Miller_S_MATTHEW Admitting Clinician Unavailable Ajibade_O_AH Admitting Clinician Unavailable Ige-Odunfernando_J_AH Admitting Clinician Unavailable Ivan Contreras Admitting Clinician Unavailable Payers Payer Name Policy Type Policy Number Effective Date Expiration Date S [place] [id number] 2022 CLASSIC NO PREMIUM 00:00:00 [facility] [place] [facility] - [id number] [id number] [place] 00:[place] (MEDICARE REPLACEMENT/ADVANT AGE - HMO) Problems Condition Condition Condition Status Onset Resolution Last Treating Co mments Source Name Details Category Date Date Treatment Clinician Date 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 10-27 Family 00:00: Practic 00 e Noncomplia Noncomplia Problem Active [place] ill[place] nce with nce with 10-27 Family treatment Treatment 00:00: Prac tic 00 e Multiple Multiple Problem Active Gusman ge complicati Complicati 3-29 Fa rissa ons due to ons Due to 00:00: 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 Diabetes Diabetes Problem Active Naseem ge mellitus Mellitus 2-25 Family 00:00: Practic 00 e Hyperlipid Hyperlipid Problem Active [place] ill[place] emia emia 2-25 Family 00:00: Practic 00 e Morbid Morbid Problem Active [facility] obesity Obesity 2-25 Family 00:00: Practic 00 e Generalize Generalize Problem Active [place] d anxiety d Anxiety 2-25 Fami ly disorder Disorder 00:00: Practi c 00 e Essential Essential Problem Active Rosalio ada hypertensi Hypertensi 2-25 Fa rissa on on 00:00: Practic 00 e Chronic Chronic Problem Active [facility] kidney Kidney 2-25 Family disease Disease 00:00: Practic stage 3 Stage 3 00 e Obesity Obesity Disease Active Univers 9-21 ity of 00:00: [place] 00 Medical Branch Cataract Cataract Disease Active Overview: Un juanito 9-03 Formattin ity of 00:00: g of this [place] 00 note Medical might be Branch different from the original. 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 Tresiba Drug Active [facility] NO KNOWN Drug Active [facility] ity of S [facility] Social History Social Habit Start Date Stop Date Quantity Comments Source History of tobacco Cigarette Smoker University of use [facility] Alcohol intake 2022-02-07 2022-02-07 Current drinker Unive rsity of 00:00:00 00:00:00 of alcohol [facility] (finding) Branch Cigarettes smoked 2007-09-05 2007-09-05 Univers ity of current (pack per 00:00:00 00:00:00 [facility] ) - Reported Branch Cigarette 2007-09-05 2007-09-05 University of pack-years 00:00:00 00:00:00 [facility] Tobacco Comment 2006-08-03 2006-08-03 has quit off/on Univ ersity of 00:00:00 00:00:00 for up to 7 [facility] Alcohol Comment 2006-08-03 2006-08-03 0-2 drinks/month Uni versity of 00:00:00 00:00:00 [facility] Sex [birth year] Universit y of 00:00:00 00:00:00 [facility] Smoking Status Start Date Stop Date Source Former Smoker [place] Family Aramis morrison Smokes tobacco daily 2007-09-05 00:00:00 [facility] ity of [facility] Medications Ordered Filled Start Stop Current Ordering Indication Dosage Frequency Signature Comments Components Source Medication Medication Date Date Medication? Clinician (SIG) Name Name metFORMIN Yes [id number] 500mg Take 1 Univers 500 mg 6-06 tablet by ity of tablet 00:00: mouth in [place] 00 the Medical morning Branch and 1 tablet in the evening. hydrocortis Yes [id number] Insert Univers one 2.5 % 6- into ity of rectal 00:00: rectum 2 [place] cream 00 (two) Medical times Branch daily. omeprazole 2022- Yes [id number] 40mg Take 1 Univers 40 mg 6- 07-07 capsule by ity of capsule 00:00: 04:59 mouth in [place] 00 :00 the Medical morning Branch for 30 days. docusate 2022- Yes [id number] 100mg Take 1 U nivers (COLACE) 6 07-07 capsule by ity of 100 mg 00:00: 04:59 mouth in [place] capsule 00 :00 the Medical morning Branch for 30 days. prednisoLON Yes 1[drp] Place 1 U nivers E acetate 3-31 Drop in ity of (PRED-FORTE 00:00: right eye [place] ) 1 % 00 4 (four) Medical ophthalmic times Branch suspension daily. drops diclofenac Yes 1[drp] Place 1 Un juanito (VOLTAREN) 3-31 Drop in ity of 0.1 % 00:00: right eye [place] ophthalmic 00 4 (four) Medic al solution times Branch daily. ciprofloxac Yes 1[drp] Place 1 U nivers in HCl 3-31 Drop in ity of (CILOXAN) 00:00: right eye [place] as 0.3 % 00 4 (four) Medical opthalmic times Branch drops daily. LANTUS Yes Univers SOLOSTAR 3-17 ity of 100 unit/mL 00:00: [place] (3 mL) InPn 00 Medical Branch metoprolol Yes Univers tartrate 3-07 ity of (LOPRESSOR) 00:00: [place] 50 mg 00 Medical tablet Branch MULTIVITAMI 2009-07 Yes one daily U nivers N ORAL LIQD 2-28 ity of 09:25: [place] 45 Medical Branch FISH OIL 2009-07 Yes po bid Univers ORAL 2-28 ity of 09:25: [place] 43 Medical Branch blood sugar Yes [id number] Un juanito diagnostic 8-03 ity of (CHEMSTRIP 00:00: [place] BG) strip 00 Medical Branch Asprin Ec Asprin Ec No 1 Q1D Asprin Ec [place] Low Dose 81 Low Dose 81 Low Dose Family mg mg 81 mg Practic tablet,juan tablet,juan tablet,del e yed release yed release ayed Take 1 Take 1 release tablet tablet Take 1 every day every day tablet by oral by oral every day route. route. by oral route. hydroxyzine hydroxyzine No 2 Q12H hydroxyzin [facility] HCl 25 mg HCl 25 mg e [...] Levemir Levemir No 55unit( Q1D Levemir Rosalio ada FlexTouch FlexTouch s) FlexTouch Family U-100 U-100 [...] night. metoprolol metoprolol No 1 BID metoprolol [place] tartrate 50 tartrate 50 tartrate Family mg tablet mg tablet 50 mg Prac tic Take 1 Take 1 tablet e tablet tablet Take 1 twice a day twice a day tablet by oral by oral twice a route as route as day by directed directed oral route for 30 for 30 as days. days. directed for 30 days. Immunizations Ordered Filled Immunization Date Status Comments [facility] e Immunization Name Name Pneumococcal 2008-09-07 Completed Orange o f Polysaccharide, 00:00:00 [facility] ical PPSV23 (PNEUMOVAX) Branch Influenza Virus 2007-05-31 Completed [facility] y of Vaccine 00:00:00 [facility] Vital Signs Vital Name Observation Time Observation Value Comments Source Systolic blood 2023-01-02 19:00:00 139 mm[Hg] Univer sity of pressure [facility] Diastolic blood 2023-01-02 19:00:00 80 mm[Hg] [facility] pressure [facility] Heart rate 2023-01-02 19:00:00 60 /min [facility] Respiratory rate 2023-01-02 19:00:00 16 /min [facility] Oxygen saturation in 2023-01-02 19:00:00 99 /min [facility] Arterial blood by [facility] Pulse oximetry Branch Body temperature 2023-01-02 15:48:00 36.72 Monse [facility] Body height 2023-01-02 15:48:00 177.8 cm [facility] Body weight 2023-01-02 15:48:00 113.399 kg [facility] BMI 2023-01-02 15:48:00 35.87 kg/m2 [facility] Height 2020-10-27 00:00:00 70 [in_i] [facility] BMI (Body Mass 2020-10-27 00:00:00 37.3 kg/m2 [facility] e Family Index) Practice Body Weight 2020-10-27 00:00:00 260 [lb_av] [facility] BP Diastolic 2020-09-23 00:00:00 86 mm[Hg] [facility] Height 2020-09-23 00:00:00 70 [in_i] [facility] BMI (Body Mass 2020-09-23 00:00:00 37.3 kg/m2 [facility] e Family Index) Practice BP Systolic 2020-09-23 00:00:00 136 mm[Hg] [facility] Body Weight 2020-09-23 00:00:00 260 [lb_av] [facility] Height/Length 2021-08-16 11:09:21 177.80 cm Measured Weight Dosing 2021-08-16 11:09:21 108.86 kg Procedures Procedure Date / Time Performed Performing Clinician Sourc e URINALYSIS 2023-01-02 17:22:00 José Lamar [facility] LIPASE 2023-01-02 16:51:00 José Lamar [facility] COMP. METABOLIC PANEL 2023-01-02 16:51:00 José Lamar [facility] ([id number]) [facility] CBC WITH DIFF 2023-01-02 16:51:00 [facility] Scre[facility] for [facility] Malignant Neoplasm of Practice Prostate Extraction of Cataract [facility] Practice Removal of Colon [facility] Encounters Start End Encounter Admission Attending Care Care Encounter Source Date/Time Date/Time Type Type Clinicians Facility Department ID 2023-01-02 2023-01-02 Emergency X DAVIDE LAMAR ERT [id number] Univers 10:42:00 14:44:00 JOSÉ saleh of [facility] 2023-01-02 2023-01-02 Emergency Willard, [facility] [id number] Univers 10:42:00 14:44:00 José RYAN [id number] i [facility] [id number] [facility] [id number] 2021-01-04 2021-01-04 Outpatient Miller_S_AH VFP VFP [id number] [place] 03:27:00 03:27:00 [id number] Family Practic e 2020-11-10 2020-11-10 Outpatient Ajibade_O_A VFP VFP [id number] Village 06:52:00 06:52:00 H [id number] Family Practic e 2020-10-27 2020-10-27 Outpatient Ajibade_O_A VFP VFP [id number] Village 01:51:00 01:51:00 H [id number] Family Practic e 2020-10-27 2020-10-27 Om[place] VFP [place] - [id number] V illage 00:00:00 00:00:00 Sukhwinder Carrasquillo Famil y 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 2020-03-25 2020-03-25 Outpatient Ajibade_O_A VFP VFP [id number] [facility] 04:36:00 04:36:00 H [id number] Family Practic e 2020-03-25 2020-03-25 Outpatient Ajibade_O_A VFP VFP [id number] [facility] 04:36:00 04:36:00 H [id number] Family Practic e 2020-03-25 2020-03-25 Outpatient Ajibade_O_A VFP VFP [id number] [facility] 04:36:00 04:36:00 H [id number] Family Practic e 2020-03-25 2020-03-25 Outpatient Ajibade_O_A VFP VFP [id number] [facility] 04:36:00 04:36:00 H [id number] Family Practic e 2019-09-17 2019-09-17 Outpatient Ige-Odunuga VFP VFP [id number] [facility] 07:13:00 07:13:00 _J_AH [id number] Family Practic e 2019-09-17 2019-09-17 Outpatient Ige-Odunuga VFP VFP [id number] [facility] 07:13:00 07:13:00 _J_AH [id number] Family Practic e 2019-07-03 2019-07-08 Inpatient 1 BenMani lovettIvan [facility] PSY [id number] 10:34:00 13:25:00 Ivan Contreras [facility] Results Test Description Test Time Test Comments Results Result Comments Source COMP. METABOLIC PANEL (71338) 2023-01-02 18:18:34 Test Item Value Reference Range Interpretation Comme nts NA (test code = 7572071496) 136 mmol/L 135-145 K (test code = 0773976679) 4.7 mmol/L 3.5-5.0 CL (test code = 1704107115) 103 mmol/L 98-108 CO2 TOTAL (test code = 6960137768) 18 mmol/L 23-31 L AGAP (test code = 6421862656) 15 2-16 BUN (test code = 8238657789) 40 mg/dL 7-23 H GLUCOSE (test code = 9442877407) 154 mg/dL 70-110 H CREATININE (test code = 2.46 mg/dL 0.60-1.25 H 0193193631) TOTAL BILI (test code = 0.7 mg/dL 0.1-1.3 5248074073) CALCIUM (test code = 0226223072) 8.6 mg/dL 8.6-10.6 T PROTEIN (test code = 2680521150) 6.3 g/dL 6.3-8.2 ALBUMIN (test code = 5681180944) 3.7 g/dL 3.5-5.0 ALK PHOS (test code = 1760005335) 77 U/L 34-122 ALTv (test code = 1742-6) 15 U/L 5-50 AST(SGOT) (test code = 5229421227) 23 U/L 13-40 eGFR (test code = 3510266315) 25.7 mL/min/1.73m2 ROMINA (test code = ROMINA) Association of Glomerular Filtration Rate (GFR) and Staging of Kidney Disease* + +-------- + ------+| GFR (mL/min/1.73 m2) ?| With Kidney Damage ?| ?Without Kidney Damage+ +-- + +| ?>90 ?| ?Stage one ?| ? Normal ?+ +------- + -------+| ?60-89 ?| ?Stage two ?| ? Decreased GFR ? + +-------- + ------+| ?30-59 ?| ?Stage three ?| ? Stage three ? + +-------- + ------+| ?15-29 ?| ?Stage four ? | ? Stage four ?+ +------- + -------+| ?<15 (or dialysis) ? ?| ?Stage five ? | ? Stage five ?+ +------- + -------+ *Each stage assumes the associated GFR level has been in effect for at least three months. ?Stages 1 to 5, with or without kidney disease, indicate chronic kidney disease. Notes: Determination of stages one and two (with eGFR >59mL/min/1.73 m2) requires estimation of kidney damage for at least three months as defined by structural or functional abnormalities of the kidney, manifested by either:Pathological abnormalities or Markers of kidney damage (including abnormalities in the composition of the blood or urine or abnormalities in imaging tests). Lab Interpretation (test code = Abnormal 55291-2) [facility]18:34 Test Item Value Reference Range Interpretation Comments LIPASE (test code = 4779827090) 159 U/L 0-220 Lab Interpretation (test code = Normal 17810-9) [facility] [place] [facility] [id number] 18:00:33 Test Item Value Reference Range Interpretation Comments WBC (test code = 7.13 See_Comment [Automated 1090-2) message] The sy stem which generated this result transmitted reference range : 4.20 - 10.70 10*3/?L. The reference range was not used to interpret this result as normal/abnormal . RBC (test code = 4.37 See_Comment [Automated 789-8) message] The sy stem which generated this result transmitted reference range : 4.26 - 5.52 10*6/?L. The reference range was not used to interpret this result as normal/abnormal . HGB (test code = 13.1 g/dL 12.2-16.4 718-7) HCT (test code = 38.9 % 38.4-49.3 4544-3) MCV (test code = 89.0 fL 81.7-95.6 787-2) MCH (test code = 30.0 pg 26.1-32.7 785-6) MCHC (test code = 33.7 g/dL 31.2-35.0 786-4) RDW-SD (test code = 43.6 fL 38.5-51.6 18270-0) RDW-CV (test code = 13.3 % 12.1-15.4 788-0) PLT (test code = 162 See_Comment [Automated 777-3) message] The sy stem which generated this result transmitted reference range : 150 - 328 10*3/ ?L. The reference r lesli was not used to interpret this result as normal/abnormal . MPV (test code = 12.7 fL 9.8-13.0 92851-4) NRBC/100 WBC (test 0.0 See_Comment [Automat ed code = 4375572193) message] The system which generated this result transmitted reference range : 0.0 - 10.0 /100 WBCs. The refer ence range was not u sed to interpret th is result as normal/abnormal . NRBC x10^3 (test code See_Comment [Auto mated = 3686712984) message] The s ystem which generated this result transmitted reference range : 10*3/?L. The reference range was not used to interpret this result as normal/abnormal . GRAN MAT (NEUT) % 75.0 % (test code = 770-8) IMM GRAN % (test code 0.60 % = 0120191243) LYMPH % (test code = 17.4 % 736-9) MONO % (test code = 6.0 % 5905-5) EOS % (test code = 0.6 % 713-8) BASO % (test code = 0.4 % 706-2) GRAN MAT x10^3(ANC) 5.35 10*3/uL 1.99-6.95 (test code = 4993177990) IMM GRAN x10^3 (test 0.04 10*3/uL 0.00-0.06 code = 9685058206) LYMPH x10^3 (test code 1.24 10*3/uL 1.09-3.23 = 731-0) MONO x10^3 (test code 0.43 10*3/uL 0.36-1.02 = 742-7) EOS x10^3 (test code = 0.04 10*3/uL 0.06-0.53 L 711-2) BASO x10^3 (test code 0.03 10*3/uL 0.01-0.09 = 704-7) Lab Interpretation Abnormal (test code = 52521-3) [facility] [id number] 10:41:53 Test Item Value Reference Range Interpretation Comments Glucose POC (test 140 mg/dL 70-115 H Notify RN or MDIf you code = Glucose POC) consider your patient critically ill, the Sj-Accu Chec k Infrom II meter should not be used for Glucos e determination. Draw a venous Glucose and send to the main Lab for analysis. POC [id number] 07:11:51 Test Item Value Reference Range Interpretation Comments Glucose POC (test 118 mg/dL 70-115 H Notify RN or MDIf you code = Glucose POC) consider your patient critically ill, the Sj-Accu Chec k Infrom II meter should not be used for Glucos e determination. Draw a venous Glucose and send to the main Lab for analysis. POC [id number] 19:44:19 Test Item Value Reference Range Interpretation Comments Glucose POC (test 151 mg/dL 70-115 H Notify RN or MDIf you code = Glucose POC) consider your patient critically ill, the Sj-Accu Chec k Infrom II meter should not be used for Glucos e determination. Draw a venous Glucose and send to the main Lab for analysis. POC [id number] 15:05:21 Test Item Value Reference Range Interpretation Comments Glucose POC (test 119 mg/dL 70-115 H Notify RN or MDIf you code = Glucose POC) consider your patient critically ill, the Sj-Accu Chec k Infrom II meter should not be used for Glucos e determination. Draw a venous Glucose and send to the main Lab for analysis. POC [id number] 11:16:17 Test Item Value Reference Range Interpretation Comments Glucose POC (test 132 mg/dL 70-115 H Notify RN or MDIf you code = Glucose POC) consider your patient critically ill, the Sj-Accu Chec k Infrom II meter should not be used for Glucos e determination. Draw a venous Glucose and send to the main Lab for analysis. POC [id number] 06:17:22 Test Item Value Reference Range Interpretation Comments Glucose POC (test 121 mg/dL 70-115 H Notify RN or MDIf you code = Glucose POC) consider your patient critically ill, the Sj-Accu Chec k Infrom II meter should not be used for Glucos e determination. Draw a venous Glucose and send to the main Lab for analysis. POC [id number] 20:10:13 Test Item Value Reference Range Interpretation Comments Glucose POC (test 133 mg/dL 70-115 H If you con stereo equipment salesperson your code = Glucose POC) patient critically ill, the Sj-Accu Check Infrom II meter should not be used for Glucose determination. Draw a venous Glucose and send to the main Lab for analysis. POC [id number] 06:13:49 Test Item Value Reference Range Interpretation Comments Glucose POC (test 116 mg/dL 70-115 H If you con stereo equipment salesperson your code = Glucose POC) patient critically ill, the Sj-Accu Check Infrom II meter should not be used for Glucose determination. Draw a venous Glucose and send to the main Lab for analysis. POC [id number] 19:55:46 Test Item Value Reference Range Interpretation Comments Glucose POC (test 121 mg/dL 70-115 H If you con stereo equipment salesperson your code = Glucose POC) patient critically ill, the Sj-Accu Check Infrom II meter should not be used for Glucose determination. Draw a venous Glucose and send to the main Lab for analysis. POC [id number] 16:21:40 Test Item Value Reference Range Interpretation Comments Glucose POC (test 126 mg/dL 70-115 H Notify RN or MDIf you code = Glucose POC) consider your patient critically ill, the Sj-Accu Chec k Infrom II meter should not be used for Glucos e determination. Draw a venous Glucose and send to the main Lab for analysis. POC [id number] 12:10:14 Test Item Value Reference Range Interpretation Comments Glucose POC (test 138 mg/dL 70-115 H Notify RN or MDIf you code = Glucose POC) consider your patient critically ill, the Sj-Accu Chec k Infrom II meter should not be used for Glucos e determination. Draw a venous Glucose and send to the main Lab for analysis. POC [id number] 06:38:10 Test Item Value Reference Range Interpretation Comments Glucose POC (test 112 mg/dL 70-115 If you con stereo equipment salesperson your code = Glucose POC) patient critically ill, the Sj-Accu Check Infrom II meter should not be used for Glucose determination. Draw a venous Glucose and send to the main Lab for analysis. POC [id number] 19:46:42 Test Item Value Reference Range Interpretation Comments Glucose POC (test 107 mg/dL 70-115 If you con stereo equipment salesperson your code = Glucose POC) patient critically ill, the Sj-Accu Check Infrom II meter should not be used for Glucose determination. Draw a venous Glucose and send to the main Lab for analysis. RPR [id number] 15:31:56 Test Item Value Reference Range Interpretation Comments RPR Qual (test code = RPR Qual) Non-Reactive Non-Reactive Reactive Control (test code = Reactive Reactive Control) Weak Reactive Control (test Weak Reactive code = Weak Reactive Control) Non-Reactive Control (test code Non-Reactive = Non-Reactive Control) Lot # (test code = Lot #) [id number] N Expiration Dt (test code = 10-31-20 N Expiration Dt) POC [id number] 15:06:05 Test Item Value Reference Range Interpretation Comments Glucose POC (test 118 mg/dL 70-115 H Notify RN or MDIf you code = Glucose POC) consider your patient critically ill, the Sj-Accu Chec k Infrom II meter should not be used for Glucos e determination. Draw a venous Glucose and send to the main Lab for analysis. POC [id number] 11:12:35 Test Item Value Reference Range Interpretation Comments Glucose POC (test 146 mg/dL 70-115 H If you con stereo equipment salesperson your code = Glucose POC) patient critically ill, the Sj-Accu Check Infrom II meter should not be used for Glucose determination. Draw a venous Glucose and send to the main Lab for analysis. POC [id number] 07:42:11 Test Item Value Reference Range Interpretation Comments Glucose POC (test 122 mg/dL 70-115 H If you con stereo equipment salesperson your code = Glucose POC) patient critically ill, the Sj-Accu Check Infrom II meter should not be used for Glucose determination. Draw a venous Glucose and send to the main Lab for analysis. POC [id number] 19:17:06 Test Item Value Reference Range Interpretation Comments Glucose POC (test 114 mg/dL 70-115 If you con stereo equipment salesperson your code = Glucose POC) patient critically ill, the Sj-Accu Check Infrom II meter should not be used for Glucose determination. Draw a venous Glucose and send to the main Lab for analysis. Urinalysis [id number] 12:27:32 Test Item Value Reference Range Interpretation Comments UA WBC (test code = UA WBC) 0-5 0-5 UA RBC (test code = UA RBC) 0-5 0-5 UA Squam Epithelial (test code = UA 0-5 Squam Epithelial) Comprehensive Metabolic [id number] 12:12:02 Test Item Value Reference Range Interpretation [...] A/G 1.6 ratio N Ratio) Comprehensive Metabolic [id number] 12:12:02 Test Item Value Reference Range Interpretation [...] ag e have not been validated by th e MDRD study and should be interpreted wit h caution. eGFR R esult Interpretation: eGFR > or = 60 is in the Normal RangeeGF R < 60 may mean kid kyle diseaseeGFR < 1 5 may mean kidney failure Rang es recommended by the National Kid[employer] Foundation, http://nkdep.ni h.gov Comprehensive Metabolic [id number] 12:12:02 Test Item Value Reference Range Interpretation [...] ag e have not been validated by th e MDRD study and should be interpreted [...] ag e have not been validated by th e MDRD study and should be interpreted wit h caution. eGFR R esult Interpretation: eGFR > or = 60 is in the Normal RangeeGF R < 60 may mean kid kyle diseaseeGFR < 1 5 may mean kidney failure Rang es recommended by the National Kidney Foundation, http://nkdep.ni h.gov Urine Drug [id number] 12:01:40 Test Item Value Reference Range Interpretation [...] if desired . Complete Blood Count with [id number] 11:38:14 Test Item Value Reference Range Interpretation [...] code = IPF) 0 % N Automated [id number] 11:38:14 Test Item Value Reference Range Interpretation Comments Neutro Auto (test code = Neutro 76.4 % 36.0-70.0 H Auto) Lymph Auto (test code = Lymph Auto) 15.8 % 12.0-44.0 [place] Auto (test code = [place] Auto) 6.7 % 0.0-11.0 Eos, Auto (test code = Eos, Auto) 0.3 % 0.0-7.0 Basophil Auto (test code = Basophil 0.4 % 0.0-2.0 Auto) Neutro Absolute (test code = Neutro 5.3 x10 1.6-7.4 Absolute) Lymph Absolute (test code = Lymph 1.09 x10 .50-4.60 Absolute) [place] Absolute (test code = [place] .46 x10 .00-1.20 Absolute) Eos Absolute (test code = Eos 0.02 x10 0.00-0.74 Absolute) Baso Absolute (test code = Baso 0.03 x10 0.00-0.21 Absolute) IG [id number] 11:38:14 Test Item Value Reference Range Interpretation Comments IG (test code = IG) 0.4 % 0.0-5.0 IG Abs (test code = IG Abs) 0 x10 N Urinalysis with Culture, if [id number] 11:37:19 Test Item Value Reference Range Interpretation [...] Micro Ind?) rule GL_SJM_UA_MICRO _IN D POC [id number] 11:07:06 Test Item Value Reference Range Interpretation Comments Glucose POC (test 123 mg/dL 70-115 H If you con stereo equipment salesperson your code = Glucose POC) patient critically ill, the Sj-Accu Check Infrom II meter should not be used for Glucose determination. Draw a venous Glucose and send to the main Lab for analysis."
[2023-01-03] MEDS ORDERED: NA CHLORIDE 0.9% 1,000 ML ONE ×2 (05:47→12:20)
[2023-01-03] MEDS ORDERED: ONDANSETRON 4 MG/2 ML VIAL ONE (05:47)
[2023-01-03] MEDS ORDERED: MORPHINE 4 MG/ML SYR ONE (05:47)
[2023-01-03] MEDS ORDERED: KETOROLAC 30 MG/ML INJ ONE (05:47)
[2023-01-03 06:07] LABS: Absolute Lymphocytes (CBC) 1.4 K/uL (0.7-4.9); Hematocrit 39.6 % (39.6-49.0); Lymphocytes % 16.2 % (15.3-44.8); MCV 88.9 fL (80-100); RBC Red Blood Cell Count 4.45 M/uL (4.33-5.43)
[2023-01-03] MEDS ORDERED: DIPHENOX/ATROP SULF 1 TAB PO ONE (06:09)
[2023-01-03] MEDS ORDERED: LIDOCAINE VISCOUS 2% SOLN 15 ML UDC ONE (06:09)
[2023-01-03] MEDS ORDERED: MAGNES/ALUMIN/SIMET 30ML UCUP ONE (06:09)
[2023-01-03 06:15] LABS: SARS-CoV-2 Antigen Rapid Res Negative (Negative)
[2023-01-03 06:24] LABS: Albumin 3.1 g/dL (3.4-5.0); Bilirubin Total 0.5 mg/dL (0.2-1.0); C-Reactive Protein 32.9 mg/L (<3.00); Potassium 4.3 mEq/L (3.5-5.1); Protein, Total 7.2 g/dL (6.4-8.2); Troponin High Sensitivity 18.5 pg/mL (<58.9)
--- NOTE | 2023-01-03 07:49 | EDPHYS ---
Physician Documentation [facility] Name: Arun Mccall Age: 77 yrs Sex: Male : 1945 Arrival Date: 01/03/2023 Time: 04:34 Bed 8 Private MD: ED Physician Gilberto Burden HPI: 01/03 07:08 This 77 yrs old Male presents to ER via EMS with complaints of Diarrhea, sp4 abdominal pain, and generalized weakness. 07:08 77-year-old male with history of diabetes, hypertension, hemorrhoids, diverticulitis, sp4 presents with worsening diarrhea, generalized weakness, and feeling unwell. Patient states he was discharged from [facility] in [place] yesterday after he was managed for diarrhea and abdominal pain. Patient states that he has felt worsening swelling had profuse diarrhea was unable to clean himself at home and called EMS to bring him to the hospital. . Historical: - Allergies: 04:39 fenofibrate nanocrystallized; jb4 04:39 insulin degludec; jb4 - PMHx: 04:39 Anxiety; Diabetes - IDDM; Hypertension; hemroids; Diverticulitis; jb4 - PSHx: 04:39 colon sx; jb4 - Family history:: not pertinent. ROS: 07:08 Constitutional: Negative for fever, chills, and weight loss, positive for generalized sp4 weakness, positive for diarrhea, positive for abdominal pain crampy pain Eyes: Negative for injury, pain, redness, and discharge, ENT: Negative for injury, pain, and discharge, Neck: Negative for injury, pain, and swelling, Cardiovascular: Negative for chest pain, palpitations, and edema, Respiratory: Negative for shortness of breath, cough, wheezing, and pleuritic chest pain, Abdomen/GI: Positive for abdominal pain, diarrhea, watery diarrhea, negative for nausea vomiting, negative for constipation Back: Negative for injury and pain, : Negative for injury, bleeding, discharge, and swelling, MS/Extremity: Negative for injury and deformity, Skin: Negative for injury, rash, and discoloration, Neuro: Negative for headache, weakness, numbness, tingling, and seizure, Psych: Negative for depression, anxiety, Allergy/Immunology: Negative for hives, rash, and allergies Endocrine: Negative for neck swelling, polydipsia, polyuria, polyphagia, and weight changes Hematologic/Lymphatic: Negative for swollen nodes, abnormal bleeding, and unusual bruising Exam: 07:08 Constitutional: This is a well developed, well nourished patient who is awake, alert, sp4 , uncomfortable appearing male, physically debilitated, generalized weakness, ambulatory with a cane, poor personal hygiene Head/Face: Normocephalic, atraumatic. Eyes: Pupils equal round and reactive to light, extra-ocular motions intact. Lids and lashes normal. Conjunctiva and sclera are not injected. Cornea within normal limits. Periorbital areas with no swelling, redness, or edema. ENT: Nares patent. No nasal discharge, no septal abnormalities noted. Tympanic membranes are normal and external auditory canals are clear. Oropharynx with no redness, swelling, or masses, exudates, or evidence of obstruction, uvula midline. Mucous membranes moist. Neck: Trachea midline, no thyromegaly or masses palpated, and no cervical lymphadenopathy. Supple, full range of motion without nuchal rigidity, or vertebral point tenderness. No Meningismus. Chest/axilla: Normal chest wall appearance and motion. Nontender with no deformity. No lesions are appreciated. Cardiovascular: Regular rate and rhythm with a normal S1 and S2. No gallops, murmurs, or rubs. Normal PMI, no JVD. No pulse deficits. Respiratory: Lungs have equal breath sounds bilaterally, clear to auscultation and percussion. No rales, rhonchi or wheezes noted. No increased work of breathing, no retractions or nasal flaring. Abdomen/GI: Soft, non-tender, with normal bowel sounds. No distension or tympany. No guarding or rebound. No evidence of tenderness throughout. Back: No spinal tenderness. No costovertebral tenderness. Male : Normal genitalia with no discharge or lesions. Skin: Warm, dry with normal turgor. Normal color with no rashes, no lesions, and no evidence of cellulitis. MS/ Extremity: Pulses equal, no cyanosis. Neurovascular intact. Full, normal range of motion. Neuro: Awake and alert, GCS 15, oriented to person, place, time, and situation. Cranial nerves II-XII grossly intact. Motor strength 5/5 in all extremities. Sensory grossly intact. Psych: Awake, alert, with orientation to person, place and time. Behavior, mood, and affect are within normal limits Vital Signs: 04:51 BP 114 / 64; Pulse 66; Resp 17 S; Temp 98.4(O); Pulse Ox 99% on R/A; lg3 06:22 BP 129 / 70; Pulse 65; Resp 17 S; Pulse Ox 99% on R/A; lg3 07:43 BP 106 / 57; Pulse 67; Resp 18; Pulse Ox 96% on R/A; vg1 08:00 BP 126 / 57; Pulse 69; Resp 17; Pulse Ox 94% on R/A; vg1 09:00 BP 121 / 68; Pulse 73; Resp 16; Pulse Ox 99% on R/A; vg1 11:00 BP 129 / 71; Pulse 63; Resp 16; Pulse Ox 96% on R/A; vg1 MDM: 04:45 Patient medically screened. sp4 07:08 Differential Diagnosis altered mental status, sepsis, flu, Cysts colitis, sp4 gastroenteritis, diverticulitis.. Data reviewed: vital signs, nurses notes, diagnostic data from outside facility, old medical records, lab test result(s), radiologic studies, CT scan, . Transition of care: After a detail discussion of the patient's case, care is transferred to Gilberto Burden MD. ED course: Patient presents with persistent diarrhea, nonbloody diarrhea, worsening abdominal pain, also inability to take care of himself in the home setting. Patient has acute on chronic renal insufficiency with creatinine of 3. Patient may warrant admission at the end of ER assessment. 07:47 Consideration of Admission/Observation Patient was admitted/placed on observation. rn Escalation of care including admission/observation considered. Counseling: I had a detailed discussion with the patient and/or guardian regarding: the historical points, exam findings, and any diagnostic results supporting the discharge/admit diagnosis, lab results, radiology results, the need for further work-up and treatment in the hospital. Response to treatment: the patient's symptoms have mildly improved after treatment. 01/03 04:44 Order name: CBC with Diff; Complete Time: 07: sp4 01/03 04:44 Order name: CMP; Complete Time: 07: sp4 01/03 04:44 Order name: Lipase; Complete Time: 07: sp4 01/03 04:44 Order name: Urinalysis w/ reflexes sp4 01/03 04:44 Order name: SARS RAPID; Complete Time: 07:05 sp4 01/03 04:44 Order name: Troponin High Sensitivity; Complete Time: 07:05 sp4 01/03 04:45 Order name: CRP; Complete Time: 07:05 sp4 01/03 04:45 Order name: CK; Complete Time: 07:05 sp4 01/03 09:25 Order name: Hematocrit; Complete Time: 10:20 EDMS 01/03 09:25 Order name: Hemoglobin; Complete Time: 10:20 EDMS 01/03 10:41 Order name: Magnesium EDMS 01/03 10:41 Order name: Phosphorus EDMS 01/03 10:41 Order name: Urinalysis w/ reflexes EDMS / 10:41 Order name: Basic Metabolic Panel EDMS 01/03 10:41 Order name: Basic Metabolic Panel EDMS 01/03 10:41 Order name: CBC with Automated Diff EDMS 01/03 10:41 Order name: CBC with Automated Diff EDMS 01/03 12:29 Order name: Glucose, Ancillary Testing EDMS 01/03 06:58 Order name: Abdomen ; Complete Time: 08:23 EDMS / 10:44 Order name: Clear Liquid EDMS 01/03 04:44 Order name: IV Saline Lock; Complete Time: 05:35 sp4 01/03 04:44 Order name: Labs collected and sent; Complete Time: 05:35 sp4 Administered Medications: 05:44 Drug: NS 0.9% IV 1000 ml Route: IV; Rate: 1 bolus; Site: left antecubital; lg3 05:44 Drug: TORadol - Ketorolac IVP 15 mg Route: IVP; Site: left antecubital; lg3 06:23 Follow up: Response: No adverse reaction lg3 05:44 Drug: Ondansetron IVP 4 mg Route: IVP; Site: left antecubital; lg3 06:23 Follow up: Response: No adverse reaction lg3 05:45 Drug: morphine IVP or IV 4 mg Route: IVP; Infused Over: 4 mins; Site: left antecubital; lg3 06:23 Follow up: Response: No adverse reaction lg3 06:06 Drug: GI Cocktail without - (Maalox PO Suspension 30 ml, Lidocaine Mucous lg3 Membrane Liquid 2 % 15 ml) Route: PO; 06:23 Follow up: Response: No adverse reaction lg3 06:06 Drug: Diphenoxylate-Atropine PO 2 tabs Route: PO; lg3 06:24 Follow up: Response: No adverse reaction lg3 Disposition Summary: 01/03/23 07:48 Hospitalization Ordered Hospitalization Status: Inpatient Admission rn Condition: Stable rn Problem: an ongoing problem rn Symptoms: have improved rn Bed/Room Type: Standard rn Provider: Rob Burden(01/03/23 09:29) rn Location: Telemetry/MedSurg (Inpatient)(01/03/23 14:25) iw Room Assignment: 231(01/03/23 14:25) iw Diagnosis - Dehydration rn - Acute kidney failure, unspecified rn - Diarrhea, unspecified rn Forms: - Medication Reconciliation Form rn - SBAR form rn Signatures: Dispatcher [employer] EDMS Patrizia Staley RN RN iw Gilberto Burden MD MD rn Bryson, James, RN RN jb4 Miriam Driscoll RN RN lg3 Dick Park MD MD sp4 Corrections: (The following items were deleted from the chart) 06:58 04:45 Abdomen Pelvis W Con+CT.RAD.BRZ ordered. EDLA EDMS 09: 07:48 Darren Muñoz rn rn 11:29 07:48 Telemetry/MedSurg (Inpatient) rn iw 11:29 07:48 rn iw 14:25 11:29 [facility] ER HOLD iw iw 14:25 11:29 ERHOLD- iw iw
--- NOTE | 2023-01-03 07:49 | ER ---
Nurse's Notes [facility] Name: Arun Mccall Age: 77 yrs Sex: Male : 1945 Arrival Date: 01/03/2023 Time: 04:34 Bed 8 Private MD: Diagnosis: Dehydration;Acute kidney failure, unspecified;Diarrhea, unspecified Presentation: 01/03 04:38 Chief complaint: EMS states: Pt was at [facility] earlier. Is coming in reporting jb4 hemroid pain with bleeding, reports acid reflux, dizziness, and difficulty urinating and having a bowel movement. Coronavirus screen: At this time, the client does not indicate any symptoms associated with coronavirus-19. Ebola Screen: No symptoms or risks identified at this time. Initial Sepsis Screen: Does the patient meet any 2 criteria? No. Patient's initial sepsis screen is negative. Does the patient have a suspected source of infection? No. Patient's initial sepsis screen is negative. Risk Assessment: Do you want to hurt yourself or someone else? Patient reports no desire to harm self or others. Onset of symptoms was January 03, 2023. Transition of care: patient was not received from another setting of care. 04:38 Method Of Arrival: EMS: [facility] jb4 04:38 Acuity: CHAYITO 3 jb4 Historical: - Allergies: 04:39 fenofibrate nanocrystallized; jb4 04:39 insulin degludec; jb4 - PMHx: 04:39 Anxiety; Diabetes - IDDM; Hypertension; hemroids; Diverticulitis; jb4 - PSHx: 04:39 colon sx; jb4 - Family history:: not pertinent. Screenin:40 Abuse screen:. lg3 04:52 [facility] ED Fall Risk Assessment (Adult) History of falling in the last 3 months, lg3 including since admission No falls in past 3 months (0 pts). Nutritional screening: No deficits noted. Tuberculosis screening: No symptoms or risk factors identified. Assessment: 04:52 General: Appears in no apparent distress. comfortable, Behavior is calm, cooperative. lg3 General: Appears unkempt, Smells of urine and feces . Pain: Complains of pain in gluteal cleft, abdomen and pelvis. Neuro: No deficits noted. Gates Agitation-Sedation Scale (RASS): 0 - Alert and Calm Level of Consciousness is awake, alert, obeys commands, Oriented to person, place, time, situation. Cardiovascular: No deficits noted. Denies chest pain, shortness of breath, Capillary refill < 3 seconds Clubbing of nail beds is absent JVD is absent Patient's skin is warm and dry. Respiratory: No deficits noted. Airway is patent Respiratory effort is even, unlabored, Respiratory pattern is regular, symmetrical. GI: Reports lower abdominal pain, upper abdominal pain, diarrhea. : Reports inability to void. EENT: No deficits noted. No signs and/or symptoms were reported regarding the EENT system. Derm: Skin is intact, is thin, Skin is dry, Skin is normal, Skin temperature is warm. Musculoskeletal: No deficits noted. Circulation, motion, and sensation intact. Range of motion: intact in all extremities. 06:23 Reassessment: Patient appears in no apparent distress at this time. No changes from lg3 previously documented assessment. Patient and/or family updated on plan of care and expected duration. Pain level reassessed. Patient is alert, oriented x 3, equal unlabored respirations, skin warm/dry/pink. 06:57 Reassessment: Patient appears in no apparent distress at this time. No changes from lg3 previously documented assessment. Patient and/or family updated on plan of care and expected duration. Pain level reassessed. Patient is alert, oriented x 3, equal unlabored respirations, skin warm/dry/pink. 07:44 Reassessment: Patient appears in no apparent distress at this time. Patient and/or vg1 family updated on plan of care and expected duration. Pain level reassessed. Patient is alert, oriented x 3, equal unlabored respirations, skin warm/dry/pink. Patient states feeling better. 11:24 Reassessment: Patient appears in no apparent distress at this time. No changes from vg1 previously documented assessment. Patient and/or family updated on plan of care and expected duration. Pain level reassessed. Patient is alert, oriented x 3, equal unlabored respirations, skin warm/dry/pink. Pt requesting to call motel; [facility] was notified for pt belongings to be placed in office and will be picked up at earliest convince. Spoke with pt and told him that motel was called and belongings will be placed in office. 14:28 Reassessment: Attempted to call report on patient. Nurse unable to take report at this vg1 time. 14:43 Reassessment: Attempted to call report for second time on patient - Nurse discharging ld1 patient. register clerk Allison stated "She is unavailable at this time, I don't know what to tell you." Hung up phone on me. Will call back in 10 minutes to follow up. 14:55 Reassessment: Report given to admitting nurse ASTRID Horn. mb9 Vital Signs: 04:51 BP 114 / 64; Pulse 66; Resp 17 S; Temp 98.4(O); Pulse Ox 99% on R/A; lg3 06:22 BP 129 / 70; Pulse 65; Resp 17 S; Pulse Ox 99% on R/A; lg3 07:43 BP 106 / 57; Pulse 67; Resp 18; Pulse Ox 96% on R/A; vg1 08:00 BP 126 / 57; Pulse 69; Resp 17; Pulse Ox 94% on R/A; vg1 09:00 BP 121 / 68; Pulse 73; Resp 16; Pulse Ox 99% on R/A; vg1 11:00 BP 129 / 71; Pulse 63; Resp 16; Pulse Ox 96% on R/A; vg1 ED Course: 04:37 Patient arrived in ED. jb4 04:39 Triage completed. jb4 04:39 Arm band placed on right wrist. jb4 04:42 Miriam Driscoll, ASTRID is Primary Nurse. lg3 04:42 Dick Park MD is Attending Physician. sp4 04:52 Patient has correct armband on for positive identification. Placed in gown. Bed in low lg3 position. Call light in reach. Side rails up X 1. Client placed on continuous cardiac and pulse oximetry monitoring. NIBP monitoring applied. Door closed. Noise minimized. Warm blanket given. 05:33 Inserted saline lock: 22 gauge in left antecubital area, using aseptic technique. Blood lg3 collected. 05:35 CK Sent. lg3 05:35 CRP Sent. lg3 05:35 Troponin High Sensitivity Sent. lg3 05:35 SARS RAPID Sent. lg3 05:35 CBC with Diff Sent. lg3 05:35 CMP Sent. lg3 05:35 Lipase Sent. lg3 06:58 Abdomen In Process Unspecified. EDMS 07:06 Attending Physician role handed off by Dick Park MD rn 07:06 Gilberto Burden MD is Attending Physician. rn 07:48 Darren Muñoz MD is Hospitalizing Provider. rn 09:29 Rob Burden MD is Hospitalizing Provider. rn 14:56 No provider procedures requiring assistance completed. Patient admitted, IV remains in mb9 place. Administered Medications: 05:44 Drug: NS 0.9% IV 1000 ml Route: IV; Rate: 1 bolus; Site: left antecubital; lg3 05:44 Drug: TORadol - Ketorolac IVP 15 mg Route: IVP; Site: left antecubital; lg3 06:23 Follow up: Response: No adverse reaction lg3 05:44 Drug: Ondansetron IVP 4 mg Route: IVP; Site: left antecubital; lg3 06:23 Follow up: Response: No adverse reaction lg3 05:45 Drug: morphine IVP or IV 4 mg Route: IVP; Infused Over: 4 mins; Site: left antecubital; lg3 06:23 Follow up: Response: No adverse reaction lg3 06:06 Drug: GI Cocktail without - (Maalox PO Suspension 30 ml, Lidocaine Mucous lg3 Membrane Liquid 2 % 15 ml) Route: PO; 06:23 Follow up: Response: No adverse reaction lg3 06:06 Drug: Diphenoxylate-Atropine PO 2 tabs Route: PO; lg3 06:24 Follow up: Response: No adverse reaction lg3 Outcome: 07:48 Decision to Hospitalize by Provider. rn 14:56 Admitted to Med/surg room 231, with chart, Report called to ASTRID Horn mb9 14:56 Condition: stable 14:56 Instructed on the need for admit. 15:02 Patient left the ED. ld1 Signatures: Dispatcher [employer] EDMS Gilberto Burden MD MD rn Bryson, James RN ASTRID [email or web address] Miriam Driscoll RN RN lg3 Liz Hope RN RN vg1 Sima Botello RN RN ld1 Noy Hinojosa RN RN mb9 Dick Park MD MD sp4
--- NOTE | 2023-01-03 08:20 | RAD REPORT ---
EXAM DESCRIPTION: CT - Abdomen Pelvis Wo Contrast - 01/03/2023 6:57 am CLINICAL HISTORY: Abdominal pain. ABD PAIN COMPARISON: Abdomen Pelvis Wo Contrast dated 12/24/2022 TECHNIQUE: CT imaging of the abdomen and pelvis was performed without contrast. Solid organ, bowel a nd vascular assessment is limited due to lack of IV and oral contrast. All CT scans are performed using dose optimization technique as appropriate and may include automated exposure control or mA/KV adjustment according to patient size. FINDINGS: The lower lung whatley are clear. The liver, spleen, pancreas, adrenal glands and kidneys are within normal limits for a limited non-co ntrast examination.Atrophic changes affect both kidneys with bilateral renal cysts noted, incompletel y assessed due to lack of IV contrast material. Aortoiliac atherosclerosis. No bowel obstruction, free air, free fluid or abscess. Moderate stool is retained in the rectosigmoid colon. Mild pannus is present with a small ventral hernia. Small periumbilical ventral hernia also p resent. No obstruction. Nonvisualized appendix. Mild lumbar degenerative changes. IMPRESSION: Moderate retained stool in the rectosigmoid colon. No discrete abnormality of the colon seen although CT is inherently limited in colonic evaluation A limited non-contrast examination was performed as detailed.
[2023-01-03 09:56] LABS: Hematocrit 38.5 % (39.6-49.0)
[2023-01-03] MEDS ORDERED: TRAMADOL HCL 50 MG TAB PO PRN (10:30)
[2023-01-03] MEDS ORDERED: ACETAMINOPHEN 325 MG TABLET PO PRN (10:30)
[2023-01-03] MEDS ORDERED: LACTULOSE 20 GM/30 ML UCUP PO PRN (10:38)
[2023-01-03] MEDS ORDERED: HEMORRHOIDAL SUPPOS PR PRN (10:42)
--- NOTE | 2023-01-03 10:48 | P.HP ---
Certification for Inpatient Patient admitted to: Inpatient With expected LOS: >2 Midnights Patient will require the following post-hospital care: None Practitioner: I am a practitioner with admitting privileges, knowledge of patient current condition, hospital course, and medical plan of care. Services: Services provided to patient in accordance with Admission requirements found in Title 42 Section 412.3 of the Code of Federal Regulations Patient History Date of Service: 01/03/23 Reason for admission: Diarrhea, generalized abdominal pain, rectal bleeding and hematochezia. History of Present Illness: Patient is a 77-year-old male with a past medical history significant for anxiety disorder, DM 2, hypertension, hemorrhoids who presents with complaint of diarrhea, generalized abdominal pain, rectal bleeding and hematochezia. Patient was discharged from [facility] yesterday for similar symptoms. Patient is a poor historian and unable to provide accurate history. Patient reported that he has been having bright red blood bleeding intermittently for the past 1 month but became worse in the last couple of days. He recently started using Preparation H 2 days ago but has not noticed any improvement. Patient is not quite sure when he started having diarrhea but reported that yesterday he was having diarrhea every hour prior to coming to the hospital. Patient rated abdominal pain as 5/10 in severity and described pain as aching in quality. Patient also reports rectal pain rated as 10/10 in severity and described as aching\burning in quality. Patient reported that he has not been eating or drinking in the last 3 days. Patient also noted with abdominal distention. Patient reported associated signs and symptoms of dizziness, weakness, fatigue and generalized malaise. Patient denies any other signs and symptoms. Symptoms are aggravated or relieved by nothing. Patient decided to present to the hospital due to worsening symptoms. Allergies fenofibrate nanocrystallized [From Tricor] Allergy (Mild, Verified 11/29/22 20:51) Unknown insulin degludec [From Tresiba FlexTouch U-100] Adverse Reaction (Intermediate, Verified 11/29/22 20:51) Anaphylaxis Home Medications: Anxiety And Stress Relief 1 tab PO DAILY 11/29/22 Bismuth Subsalicylate [Kaopectate] 262 mg PO DAILY 11/29/22 Garlique 1 tab PO DAILY 11/29/22 Metoprolol Tartrate 50 mg PO BID 11/29/22 Simvastatin 40 mg PO BEDTIME 11/29/22 Amlodipine [Norvasc*] 5 mg PO BID #60 tab 12/03/22 - Past Medical/Surgical History Diabetic: Yes -: DM II -: HTN -: CKD III with Proteinuria (Dr. Atkinson) -: colon surgery - Family History Father -: Heart disease - Social History Smoking Status: Never smoker Alcohol use: No CD- Drugs: No Caffeine use: Yes Place of Residence: Home Review of Systems General: Weakness, Malaise, Other (Fatigue) Eyes: Unremarkable ENT: Unremarkable Respiratory: Unremarkable Cardiovascular: Unremarkable Gastrointestinal: Abdominal Pain, Diarrhea, Distention, Hematochezia, Other (Rectal bleeding) Genitourinary: Other (Rectal pain) Musculoskeletal: Unremarkable Integumentary: Bruising Neurological: Weakness, Other (Dizziness) Lymphatics: Unremarkable Physical Examination - Physical Exam General: Alert, In no apparent distress, Oriented x3, Cooperative HEENT: Atraumatic, PERRLA, Mucous membr. moist/pink, EOMI, Sclerae nonicteric Neck: Supple, 2+ carotid pulse no bruit, No LAD, Without JVD or thyroid abnormality Respiratory: Clear to auscultation bilaterally, Normal air movement Cardiovascular: No edema, Regular rate/rhythm, Normal S1 S2 Capillary refill: <2 Seconds Gastrointestinal: Normal bowel sounds, Distended, Tenderness Musculoskeletal: No clubbing, No swelling, No tenderness Integumentary: No rashes, Other (Bruises ) Neurological: Normal gait, Normal speech, Normal strength at 5/5 x4 extr, Normal tone, Normal affect Lymphatics: No axilla or inguinal lymphadenopathy - Studies Laboratory Data (last 24 hrs) 01/03/23 09:42: Hgb 12.6 L, Hct 38.5 L 01/03/23 05:33: Sodium 136, Potassium 4.3, BUN 47 H, Creatinine 3.10 H, Glucose 149 H, Total Bilirubin 0.5, AST 19, ALT 15 L, Alkaline Phosphatase 76, Lipase 36 01/03/23 05:33: WBC 8.40, Hgb 12.9 L, Hct 39.6, Plt Count 184 Assessment and Plan - Plan --DANIEL on CKD 3B. Likely prerenal secondary to poor p.o. intake and diarrhea. Nephrology consulted. Patient placed on IV hydration. We will continue to monitor renal functions. We will await further recommendation from property insurance agent. --Gastrointestinal bleeding. Patient has a history of hemorrhoids. Recently started on Preparation H 2 days ago without no effects on severity of bleeding. H&H stable. Surgeon consulted. We will continue to monitor H&H and transfuse if less than 7.0. We will await further recommendation from surgeon --Constipation. Patient reports episode of diarrhea. No episodes of diarrhea reported since patient came to the hospital. CT abdomen indicates Moderate retained stool in the rectosigmoid colon. No discrete abnormality of the colon s een although. Patient placed on laxatives. Stool studies pending to rule out any infectious process. Continue supportive care. --DM2. BS monitoring with sliding scale insulin. --Anxiety disorder. Continue home medication. -- Hyperlipidemia. Continue statin. --Hypertension. Stable. Continue home medications --DVT prophylaxis with SCDs. Discharge Plan: Home Plan to discharge in: Greater than 2 days - Advance Directives Does patient have a Living Will: No Does patient have a Durable POA for Healthcare: No - Code Status/Comfort Care Code Status Assessed: Yes Physician Review: Patient Assessed, Agree with Above Assessment and Plan Critical Care: No
[2023-01-03] MEDS: NA CHLORIDE 0.9% 1,000 ML IV SCH ×2 (11:00→16:39)
[2023-01-03] MEDS ORDERED: GLUCAGON 1 MG/VIAL IM PRN (11:08)
[2023-01-03] MEDS ORDERED: D50W 25 GM/50 ML SYRINGE IV PRN (11:08)
[2023-01-03] MEDS ORDERED: D10W 125 ML IV PRN (11:11)
[2023-01-03] MEDS: INSULIN -REGULAR HUMAN 50 UNIT/0.5 ML ML SQ SCH ×3 (11:30→21:00)
[2023-01-03 11:41] LABS: Magnesium 2.2 mg/dL (1.6-2.4); Phosphorus 5.1 mg/dL (2.5-4.9)
--- NOTE | 2023-01-03 15:02 | P.CNS ---
Date of Consult: 01/03/23 Reason for Consult: DANIEL, CKD Requesting Physician: Eunice Rondon Chief Complaint: Diarrhea, generalized abdominal pain, rectal bleeding and hematochezia. History of Present Illness: Patient is a 77-year-old male who is known to our service from consultation during prior, recent admission although it does not appear pt followed up in clinic. He has a number of chronic conditions but reports having recurrent bloody diarrhea over the past few weeks. Pt cites weakness, loss of appetite. Admission labs were notable for renal insufficiency with labs worse than levels seen on discharge in November. Allergies fenofibrate nanocrystallized [From Tricor] Allergy (Mild, Verified 11/29/22 20:51) Unknown insulin degludec [From Tresiba FlexTouch U-100] Adverse Reaction (Intermediate, Verified 11/29/22 20:51) Anaphylaxis Home Medications: Anxiety And Stress Relief 1 tab PO DAILY 11/29/22 Bismuth Subsalicylate [Kaopectate] 262 mg PO DAILY 11/29/22 Garlique 1 tab PO DAILY 11/29/22 Metoprolol Tartrate 50 mg PO BID 11/29/22 Simvastatin 40 mg PO BEDTIME 11/29/22 Amlodipine [Norvasc*] 5 mg PO BID #60 tab 12/03/22 - Past Medical/Surgical History Diabetic: Yes -: DM II -: HTN -: CKD III with Proteinuria -: colon surgery - Family History Father Medical History: Heart disease - Social History Smoking Status: Unknown if ever smoked Alcohol use: No CD- Drugs: No Caffeine use: Yes Place of Residence: Home Review of Systems General: Weakness, Malaise Respiratory: Unremarkable Cardiovascular: Unremarkable Gastrointestinal: Abdominal Pain, Hematochezia Genitourinary: Unremarkable Musculoskeletal: Unremarkable Integumentary: Unremarkable Neurological: Unremarkable Physical Examination Temp Pulse Resp BP Pulse Ox 76 18 127/68 98 01/03/23 12:00 01/03/23 12:00 01/03/23 12:00 01/03/23 12:00 General: Alert, In no apparent distress, Cooperative HEENT: Atraumatic Respiratory: Clear to auscultation bilaterally, Normal air movement Cardiovascular: No edema, Regular rate/rhythm Gastrointestinal: Soft and benign, Non-distended Musculoskeletal: No contractures, No warmth Integumentary: No rashes, No tenderness/swelling Neurological: Normal speech, Normal tone Laboratory Data (last 24 hrs) 01/03/23 09:42: Hgb 12.6 L, Hct 38.5 L 01/03/23 05:33: Phosphorus 5.1 H, Magnesium 2.2 01/03/23 05:33: Sodium 136, Potassium 4.3, BUN 47 H, Creatinine 3.10 H, Glucose 149 H, Total Bilirubin 0.5, AST 19, ALT 15 L, Alkaline Phosphatase 76, Lipase 36 01/03/23 05:33: WBC 8.40, Hgb 12.9 L, Hct 39.6, Plt Count 184 Conclusions/Impression: A/P) Stage 1 DANIEL likely due to hypovolemia, other. No hydro on imaging. On underling CKD IIIb with notable proteinuria on spot urine testing (macroalbuminuria and Up/c > 3 gm) in the past Given chronic DM, probable diabetic nephropathy +/- other underlying, imaging also with some signs of CKD -F/u post hydration levels to see if they trend to baseline. Acquired cysts of kidney, abnormal diagnostic imaging of kidneys b/l, calculi (non obstructing) -Simple and mildly complex cysts reported on u/s, can f/u in 6 mo with u/s, CT scan without contrast did not comment much further HTN with CKD -Hold scheduled BP meds currently, trend BP with IVF hydration. Enzo Hannah MD, EDEL
[2023-01-03 16:09] VITALS: BMI 28.7
[2023-01-03 17:52] LABS: Specific Gravity 1.019 (1.005-1.030); Urine Bacteria <20 /HPF (<20); Urine Bilirubin NEGATIVE (Negative); Urine Blood Trace (Negative); Urine Clarity Extremely Turbid (Clear); Urine Color Yellow (Yellow); Urine Glucose 1+ (Negative); Urine Mucus Slight /HPF (None Seen); Urine Protein 3+ (Negative); Urine RBC <5 /HPF (None Seen); Urine Urobilinogen Normal (Normal)
[2023-01-03] MEDS ORDERED: PNEUMOCOCCAL VACCINE 0.5 ML IMVAC ONE (18:00)
[2023-01-03 18:04] LABS: Hematocrit 41.6 % (39.6-49.0)
[2023-01-03] MEDS: DOCUSATE NA 100 MG CAP PO SCH (19:41)
[2023-01-04 01:22] LABS: Hematocrit 38.2 % (39.6-49.0)
[2023-01-04] MEDS: NA CHLORIDE 0.9% 1,000 ML IV SCH ×3 (02:58→23:47)
[2023-01-04 03:13] LABS: C.diff Antigen/Toxin Ag neg : Tox neg (NEG : NEG)
[2023-01-04 03:47] LABS: Absolute Lymphocytes (CBC) 1.6 K/uL (0.7-4.9); Hematocrit 38.5 % (39.6-49.0); Lymphocytes % 18.7 % (15.3-44.8); MCV 89.8 fL (80-100); MPV 10.5 fL (7.6-11.3); RBC Red Blood Cell Count 4.28 M/uL (4.33-5.43)
[2023-01-04 03:56] LABS: Potassium 4.1 mEq/L (3.5-5.1)
[2023-01-04] MEDS ORDERED: MORPHINE 2 MG/ML SYR IV ONE (04:37)
[2023-01-04] MEDS: ONDANSETRON 4 MG/2 ML VIAL IV PRN ×2 (04:50→23:07)
--- NOTE | 2023-01-04 07:05 | P.PN ---
Date of Service: 01/04/23 Subjective: diarrhea slowing down, but continues still with lower abd pain no hematochezia/melena noted with BMs overnight didn't want to talk further, lunch arrived and didn't want it to get cold ROS: 10 point ROS as noted above, otherwise negative Physical Exam: GEN: Alert, oriented, NAD HEENT: Normal conjunctiva, sclera anicteric CV: Regular rate and rhythm, no edema Pulm: Nonlabored respirations on room air ABD: Soft, tender to palpation in lower abdomen, nondistended Neuro: Normal speech, normal affect vitals reviewed Problem List: DANIEL on CKD 3B Diffuse colitis with concer for lower GI bleed Constipation h/o hemorrhoids NIDDM2 Anxiety disorder Hyperlipidemia Hypertension DANIEL on CKD 3B worsened despite gentle IVF, no report of large volume BMs overnight component of dehydration and possible intrinsic disease / diabetic nephropathy Nephrology consulted. continue IVF CLD Diffuse colitis with concer for lower GI bleed Constipation h/o hemorrhoids has a history of hemorrhoids. Recently started on Preparation H 2 days ago without no effects on severity of bleeding. H&H stable. General Surgery consulted, continue medical management f/u in office and will need c-scope in near future +rotavirus (12/24/22) Patient reports episode of diarrhea. No episodes of diarrhea reported since patient came to the hospital. CT abdomen indicates Moderate retained stool in the rectosigmoid colon. No discrete abnormality of the colon seen although. Stool studies pending to rule out any infectious process. Continue laxative - pt refused overnight NIDDM2. BS monitoring with sliding scale insulin. Anxiety disorder. Continue home medication Hyperlipidemia. Continue statin Hypertension. Stable. Continue home medications VTE: SCD Code: Full Dispo: Home ~2 days
[2023-01-04] MEDS: INSULIN -REGULAR HUMAN 50 UNIT/0.5 ML ML SQ SCH ×4 (07:30→20:58)
[2023-01-04] MEDS: DOCUSATE NA 100 MG CAP PO SCH ×2 (08:47→20:05)
--- NOTE | 2023-01-04 15:52 | P.PN ---
(S) Pt continues to cite some lower abd soreness and diarrhea, stool studies pending. Remains on IVF, renal function tests no better (O) Vitals reviewed in the EMR General: Alert, In no apparent distress, Cooperative HEENT: Atraumatic Respiratory: Clear to auscultation bilaterally, Normal air movement Cardiovascular: No edema, Regular rate/rhythm Gastrointestinal: Soft and benign, Non-distended, mild lower quandrant TTP Musculoskeletal: No contractures, No warmth Integumentary: No rashes, No tenderness/swelling Neurological: Normal speech, Normal tone Laboratory Data (last 24 hrs) Reviewed in the EMR Conclusions/Impression: A/P) Stage 1 DANIEL likely due to hypovolemia, other. No hydro on imaging. On underling CKD IIIb/IV with notable proteinuria on spot urine testing (macroalbuminuria and Up/c > 3 gm) in the past Given chronic DM, probable diabetic nephropathy +/- other underlying, imaging also with some signs of CKD -No sig improvement with initial gentle hydration, urine with abnormal findings unspecified. Sometimes with heavy proteinuria, tubular injury (ATN) can additionally develop Acquired cysts of kidney, abnormal diagnostic imaging of kidneys b/l, calculi (non obstructing) -Simple and mildly complex cysts reported on u/s, can f/u in 6 mo with u/s, CT scan without contrast did not comment much further HTN with CKD -Hold scheduled BP meds currently, trend BP with IVF hydration. Enzo Hannah MD, EDEL
[2023-01-04] MEDS: ENSURE CLEAR 200 ML CAN PO SCH (20:57)
[2023-01-05 03:44] LABS: Absolute Lymphocytes (CBC) 1.3 K/uL (0.7-4.9); Hematocrit 39.4 % (39.6-49.0); Lymphocytes % 14.5 % (15.3-44.8); MCV 90.2 fL (80-100); RBC Red Blood Cell Count 4.37 M/uL (4.33-5.43)
[2023-01-05 03:58] LABS: Albumin 2.8 g/dL (3.4-5.0); Bilirubin Total 0.4 mg/dL (0.2-1.0); Magnesium 2.2 mg/dL (1.6-2.4); Potassium 4.1 mEq/L (3.5-5.1); Protein, Total 6.8 g/dL (6.4-8.2)
--- NOTE | 2023-01-05 07:09 | P.PN ---
Date of Service: 01/05/23 Subjective: diarrhea slowing abd pain no new/worsening symptoms ROS: 10 point ROS as noted above, otherwise negative Physical Exam: GEN: Alert, oriented, NAD HEENT: Normal conjunctiva, sclera anicteric CV: Regular rate and rhythm, no edema Pulm: Nonlabored respirations on room air ABD: Soft, tender to palpation in lower abdomen, nondistended Neuro: Normal speech, normal affect vitals reviewed Problem List: DANIEL on CKD 3B Diffuse colitis with concer for lower GI bleed Constipation h/o hemorrhoids NIDDM2 Anxiety disorder Hyperlipidemia Hypertension DANIEL on CKD 3B worsened despite gentle IVF, no report of large volume BMs overnight component of dehydration and possible intrinsic disease / diabetic nephropathy Nephrology consulted. continue IVF CLD Diffuse colitis with concer for lower GI bleed Constipation h/o hemorrhoids has a history of hemorrhoids. Recently started on Preparation H 2 days ago without no effects on severity of bleeding. H&H stable. General Surgery consulted, continue medical management f/u in office and will need c-scope in near future +rotavirus (12/24/22) Patient reports episode of diarrhea. No episodes of diarrhea reported since patient came to the hospital. CT abdomen indicates Moderate retained stool in the rectosigmoid colon. No discrete abnormality of the colon seen although. Stool studies pending to rule out any infectious process. NIDDM2. BS monitoring with sliding scale insulin. Anxiety disorder. Continue home medication Hyperlipidemia. Continue statin Hypertension. Stable. Continue home medications VTE: SCD Code: Full Dispo: Home ~1-2 days
[2023-01-05] MEDS: INSULIN -REGULAR HUMAN 50 UNIT/0.5 ML ML SQ SCH ×4 (07:30→20:59)
[2023-01-05] MEDS: ENSURE CLEAR 200 ML CAN PO SCH ×2 (09:00→20:58)
[2023-01-05] MEDS: DOCUSATE NA 100 MG CAP PO SCH ×2 (09:05→21:00)
[2023-01-05] MEDS: NA CHLORIDE 0.9% 1,000 ML IV SCH (17:32)
--- NOTE | 2023-01-05 19:35 | CON ---
Date of Consultation: 01/03/2023 Brief History Of Present Illness: The patient is a 77-year-old male with past medical history signif icant for anxiety disorder, diabetes, hypertension, hemorrhoids, who presents with complaints of diar deysi, generalized abdominal pain, rectal bleeding, possible hematochezia. He was discharged from [facility] the day prior with similar symptoms. He is a poor historian, unable to provide accurate history. He continues to discuss possibility of bright red blood per rectum over the course of the month. It is intermittent. Sometimes it is bright red, minimal amount. Other times it is significant by his d escription. He started using Preparation-H and has not noticed any improvement. He came to the [facility] room with complaints of abdominal pain and the bleeding per rectum. He additionally states he has some pain and a bulge in his abdomen. He has had previous partial colectomy before in the past a nd thinks that his hernia and his abdominal bulge appeared shortly after that surgery. Past Medical History: Significant for diabetes, hypertension, CKD, proteinuria, taken care by Dr. Kaden ellington. Past Surgical History: Includes colon surgery of uncertain etiology. Home Medications: Include bismuth subsalicylate/Kaopectate, Garlique, metoprolol, simvastatin, Norva sc. Allergies: TO TRICOR/FENOFIBRATE AND INSULIN DEGLUDEC FROM [facility]. Social History: He denies smoking, alcohol, or recreational drug use. Review of Systems: A 10-point review of systems, he admits to weakness, fatigue, malaise, occasional intermittent rectal pain, easy bruising. Otherwise, 10-point review of systems negative. Physical Examination: Vital Signs: At time of my examination, his blood pressure was 147/68, pulse 60, respiratory rate 18 , temperature 97.0, SpO2 93% on room air. General: He is awake, alert, and oriented. Psychiatric: He is appropriate and conversive, but requires frequent redirection as he continues to discuss nonmedical issues including his home social situation and requires frequent redirection to fo cus on his reason for his admission and complaints during this admission. HEENT: Normocephalic. Sclerae anicteric. Mucous membranes are moist. Oropharynx is clear. Neck: Supple without JVD. Chest: Expansion, excursion. Cardiovascular: Regular rate and rhythm. Pulmonary: Clear to auscultation bilaterally. Abdomen: Soft, nontender, nondistended. No rebound. No guarding. No focal peritonitis. He does h ave palpable hernias. Well-healed surgical scar evident. No rash is appreciated. Extremities: He does have some minor bruising to his upper extremities consistent with well-healed p revious bruises in different stages, but they are small and mild less than the size of a edil. Skin: Warm and dry otherwise, there is no clubbing, cyanosis, edema. Laboratory Exam: White blood cell count 8.4, hemoglobin 12.9, hematocrit of 39.6, platelet count was 184, neutrophils were 75%. His chemistry showed a sodium 136, potassium 4.3, chloride 107, carbon d ioxide is 17, BUN 47, creatinine 3.1, glucose is 149. Calcium 8.7, total bilirubin 0.5, AST 19, ALT 15, alkaline phosphatase 76. Troponin was 18.5. CRP was 32. Lipase 36. His UA had hyaline casts, 2+ protein, trace blood, it was very turbid. His C diff toxin was negative. He had imaging on 01/03 officially which was abdomen and pelvis CT, officially read as moderate retained stool in the r ectosigmoid colon, no discrete abnormality of the colon, although CT is inherently limited colonic ev aluation, small periumbilical ventral hernia is also present, no obstruction. Assessment And Plan: This is a 77-year-old male who presents with signs and symptoms of mild abdomin al pain, possible GI bleeding. 1.IV fluid hydration. 2.Antibiotic coverage. 3.Serial abdominal exams. 4.Serial hemoglobin checks. 5.If the patient shows evidence of gastrointestinal bleed, will work up source during this admission and take appropriate investigatory measures. I have explained the risks, benefits, alternatives of the above stated plan. The patient agrees to proceed as indicated. Thank you for this interesting consult. Continue medical plan per Dr. Burden. RITCHIE/LOLLY Voice ID: [id number] Report ID: [id number]
[2023-01-05] MEDS ORDERED: HYDROCODONE/APAP 5/325 MG TAB PO PRN (20:32)
--- NOTE | 2023-01-05 20:52 | P.PN ---
(S) Pt reports improved abd pain and diarrhea. (O) Vitals reviewed in the EMR General: Alert, In no apparent distress, Cooperative HEENT: Atraumatic Respiratory: Clear to auscultation bilaterally, Normal air movement Cardiovascular: No edema, Regular rate/rhythm Gastrointestinal: Soft and benign, Non-distended, ventral hernias Musculoskeletal: No contractures, No warmth Integumentary: No rashes, No tenderness/swelling Neurological: Normal speech, Normal tone Laboratory Data (last 24 hrs) Reviewed in the EMR Conclusions/Impression: A/P) Stage 1 DANIEL likely due to hypovolemia, other. No hydro on imaging. On underling CKD IIIb/IV with notable proteinuria on spot urine testing (macroalbuminuria and Up/c > 3 gm) in the past Given chronic DM, probable diabetic nephropathy +/- other underlying, imaging also with some signs of CKD -No sig improvement with initial gentle hydration, urine with abnormal findings unspecified. Sometimes with heavy proteinuria, tubular injury (ATN) can additionally develop. Cr level stable and UOP color/amount appears to be improving. Acquired cysts of kidney, abnormal diagnostic imaging of kidneys b/l, calculi (non obstructing) -Simple and mildly complex cysts reported on u/s, can f/u in 6 mo with u/s, CT scan without contrast did not comment much further HTN with CKD -Hold scheduled BP meds currently, trend BP with IVF hydration. Enzo Hannah MD, MONTYN
[2023-01-05] MEDS ORDERED: MORPHINE 2 MG/ML SYR IV PRN (22:46)
[2023-01-06 03:17] LABS: Hematocrit 34.6 % (39.6-49.0); MCV 90.3 fL (80-100); MPV 10.1 fL (7.6-11.3); RBC Red Blood Cell Count 3.83 M/uL (4.33-5.43)
[2023-01-06] MEDS: NA CHLORIDE 0.9% 1,000 ML IV SCH (03:32)
[2023-01-06 03:41] LABS: Albumin 2.4 g/dL (3.4-5.0); Bilirubin Total 0.4 mg/dL (0.2-1.0); Magnesium 1.9 mg/dL (1.6-2.4); Potassium 4.1 mEq/L (3.5-5.1); Protein, Total 5.8 g/dL (6.4-8.2)
--- NOTE | 2023-01-06 07:10 | P.PN ---
Date of Service: 01/06/23 Subjective: no diarrhea since last night abdominal pain improving, +nausea tolearing PO, no vomiting ROS: 10 point ROS as noted above, otherwise negative Physical Exam: GEN: Alert, oriented, NAD HEENT: Normal conjunctiva, sclera anicteric CV: Regular rate and rhythm, no edema Pulm: Nonlabored respirations on room air ABD: Soft, tender to palpation in lower abdomen, nondistended Neuro: Normal speech, normal affect vitals reviewed Problem List: DANIEL on CKD 3B Diffuse colitis with concer for lower GI bleed Constipation h/o hemorrhoids NIDDM2 Anxiety disorder Hyperlipidemia Hypertension DANIEL on CKD 3B worsened despite gentle IVF, no report of large volume BMs overnight component of dehydration and possible intrinsic disease / diabetic nephropathy Nephrology consulted. IVF DCd 01/06 CLD improving, near baseline Diffuse colitis with concer for lower GI bleed Constipation h/o hemorrhoids has a history of hemorrhoids. Recently started on Preparation H 2 days ago without no effects on severity of bleeding. H&H stable. General Surgery consulted, continue medical management f/u in office and will need c-scope in near future +rotavirus (12/24/22) Patient reports episode of diarrhea. No episodes of diarrhea reported since patient came to the hospital. CT abdomen indicates Moderate retained stool in the rectosigmoid colon. No discrete abnormality of the colon seen although. stool studies: negative; ova/parasite still pending advance to soft diet 01/06 NIDDM2. BS monitoring with sliding scale insulin. Anxiety disorder. Continue home medication Hyperlipidemia. Continue statin Hypertension. Stable. Continue home medications VTE: SCD Code: Full Dispo: Home ~1-2 days
[2023-01-06] MEDS: INSULIN -REGULAR HUMAN 50 UNIT/0.5 ML ML SQ SCH ×4 (07:30→21:00)
--- NOTE | 2023-01-06 07:52 | RAD REPORT ---
EXAM DESCRIPTION: RAD - Abdomen 1 View (KUB) - 01/06/2023 5:30 am CLINICAL HISTORY: eval stool burden COMPARISON: Abdomen 1 View (KUB) dated 06/19/2019 FINDINGS: Nonobstructive bowel gas pattern. No acute osseous abnormality.Visualized lungs are unrema rkable.No abnormal calcifications. Scoliosis. IMPRESSION: Nonobstructive bowel gas pattern. Low formed stool burden.
[2023-01-06] MEDS: ENSURE CLEAR 200 ML CAN PO SCH ×2 (08:07→20:48)
[2023-01-06] MEDS: DOCUSATE NA 100 MG CAP PO SCH (08:08)
[2023-01-06] MEDS ORDERED: LOPERAMIDE HCL 2 MG CAPSULE PO PRN (10:04)
[2023-01-06 11:01] LABS: Specific Gravity 1.008 (1.005-1.030); Urine Bacteria <20 /HPF (<20); Urine Bilirubin NEGATIVE (Negative); Urine Blood Trace (Negative); Urine Clarity Turbid (Clear); Urine Color Colorless (Yellow); Urine Glucose 2+ (Negative); Urine Protein 2+ (Negative); Urine RBC <5 /HPF (None Seen); Urine Urobilinogen Normal (Normal); Urine pH 5.5 (5.0-7.0)
--- NOTE | 2023-01-06 15:32 | P.PN ---
(S) IVF stopped, pt improving, no acute complaints (O) Vitals reviewed in the EMR General: Alert, In no apparent distress, Cooperative HEENT: Atraumatic Respiratory: Clear to auscultation bilaterally, Normal air movement Cardiovascular: No edema, Regular rate/rhythm Gastrointestinal: Soft and benign, Non-distended, ventral hernias Musculoskeletal: No contractures, No warmth Integumentary: No rashes, No tenderness/swelling Neurological: Normal speech, Normal tone Laboratory Data (last 24 hrs) Reviewed in the EMR Conclusions/Impression: A/P) Stage 1 DANIEL likely due to hypovolemia, other. No hydro on imaging. On underling CKD IIIb/IV with notable proteinuria on spot urine testing (macroalbuminuria and Up/c > 3 gm) in the past Given chronic DM, probable diabetic nephropathy +/- other underlying, imaging also with some signs of CKD -No sig improvement with initial gentle hydration, urine with abnormal findings unspecified. Sometimes with heavy proteinuria, tubular injury (ATN) can additionally develop. Cr level however did downward trend today which is encouraging Acquired cysts of kidney, abnormal diagnostic imaging of kidneys b/l, calculi (non obstructing) -Simple and mildly complex cysts reported on u/s, can f/u in 6 mo with u/s, CT scan without contrast did not comment much further HTN with CKD -Holding scheduled BP meds currently, BP mildly higher now, IVF stopped. Monitor trend for now Enzo Hannah MD, EDEL
[2023-01-06] MEDS: ONDANSETRON 4 MG/2 ML VIAL IV PRN (16:42)
[2023-01-07 03:29] LABS: Magnesium 2.2 mg/dL (1.6-2.4); Potassium 4.1 mEq/L (3.5-5.1)
--- NOTE | 2023-01-07 07:06 | P.PN ---
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 IVF DCd 01/06 Diet advanced improving, near baseline Diffuse colitis with concer for lower GI bleed Constipation h/o hemorrhoids has a history of hemorrhoids. Recently started on Preparation H 2 days ago without no effects on severity of bleeding. H&H stable. General Surgery consulted, continue medical management f/u in office and will need c-scope in near future +rotavirus (12/24/22) Patient reports episode of diarrhea. No episodes of diarrhea reported since patient came to the hospital. CT abdomen indicates Moderate retained stool in the rectosigmoid colon. No discrete abnormality of the colon seen although. stool studies: negative; ova/parasite still pending advanced to soft diet 01/06 improving NIDDM2. BS monitoring with sliding scale insulin. Anxiety disorder. Continue home medication Hyperlipidemia. Continue statin Hypertension. Stable. Continue home medications VTE: SCD Code: Full Dispo: ~1 day; states he is homeless, no resources 01/07 states tomorrow he might be able to get a hold of someone to help with cost to [place] to [place] tomorrow
[2023-01-07] MEDS: INSULIN -REGULAR HUMAN 50 UNIT/0.5 ML ML SQ SCH ×4 (07:30→21:00)
[2023-01-07] MEDS: ENSURE CLEAR 200 ML CAN PO SCH ×2 (09:00→21:00)
--- NOTE | 2023-01-07 16:31 | P.PN ---
Subjective Date of Service: 01/06/23 Chief Complaint: Diarrhea, generalized abdominal pain, rectal bleeding and hematochezia. Subjective: Improving (No further medical complaints, no GI bleeding, normal bowel function, he only wants to discuss his social issues about housing, and transportation, financial issues) Physical Examination - Vital Signs Temperature: 97.9 F Blood Pressure: 169/75 Pulse: 76 Respirations: 17 Pulse Ox (%): 98 - Physical Exam General: Alert, In no apparent distress, Other (argumentative, but oriented, clear language, no suicidal ideation, perserverates on financial concerns, is not interested in discussing his medical issues) Gastrointestinal: Non-distended, W/out succussion splash, W/out hepatosplenomegaly, W/out hepatomegaly, W/out splenomegaly, No ascites, No tenderness, No masses, No rebound, No guarding Neurological: Normal speech, Normal affect Assessment And Plan - Plan Patient is a 77 year old man admitted with GI isssues - no acute GI issues @ this time, no bleeding - Medical management per Dr. Burden - No need for urgent endoscopy or surgical intervention, can follow up as outpatient for schedule of colonoscopy, ect. - patient continues to solicit for money from physicians, asks for staff to arrange transportation to [place], [place]. continues to discuss only financial situation, requires frequent redirection to complete medical discussion - patient is oriented to person, place, time, event, his current situation, no signs of suicidal ideation, impariment or thought, but does continue to persist to demand financial resources from [facility], [facility] [facility], staff, solicits for money from physicians - i have reminded him [facility] has discussed his situation, and will continue to try to help him in any way possible. > 30 minutes discussing above Physician Review: Patient Assessed, Agree with Above Assessment and Plan
--- NOTE | 2023-01-07 16:33 | P.PN ---
Subjective Date of Service: 01/07/23 Chief Complaint: Diarrhea, generalized abdominal pain, rectal bleeding and hematochezia. Subjective: No new changes Physical Examination - Vital Signs Temperature: 97.9 F Blood Pressure: 169/75 Pulse: 76 Respirations: 17 Pulse Ox (%): 98 - Physical Exam General: Alert, In no apparent distress Gastrointestinal: Soft and benign, Non-distended, W/out succussion splash, W/out hepatosplenomegaly, W/out hepatomegaly, W/out splenomegaly, No ascites, No tenderness, No masses, No rebound, No guarding Assessment And Plan - Plan Patient is a 77 year old man admitted with GI isssues - no acute GI issues @ this time, no bleeding - Medical management per Dr. Burden - No need for urgent endoscopy or surgical intervention, can follow up as outpatient for schedule of colonoscopy, ect. - patient continues to solicit for money from physicians, asks for staff to arrange transportation to [place], [place]. continues to discuss only financial situation, requires frequent redirection to complete medical discussion - patient is oriented to person, place, time, event, his current situation, no signs of suicidal ideation, impariment or thought, but does continue to persist to demand financial resources from [facility], hospital, staff, solicits for money from physicians - i have reminded him [facility] has discussed his situation, and will continue to try to help him in any way possible. > 30 minutes discussing above - Will sign off for now, please call back with any concerns Physician Review: Patient Assessed, Agree with Above Assessment and Plan
--- NOTE | 2023-01-08 07:02 | P.PN ---
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 IVF DCd 01/06 Diet advanced renal function improved 01/08, Cr up to 4.78, inconsistent with trend, and no particular symptoms suggestive of etiology likely error, repeat BMP this afternoon renal u/s (01/08): ordered Diffuse colitis with concer for lower GI bleed Constipation h/o hemorrhoids has a history of hemorrhoids. Recently started on Preparation H 2 days ago without no effects on severity of bleeding. H&H stable. General Surgery consulted, continue medical management f/u in office and will need c-scope in near future +rotavirus (12/24/22) Patient reports episode of diarrhea. No episodes of diarrhea reported since patient came to the hospital. CT abdomen indicates Moderate retained stool in the rectosigmoid colon. No discrete abnormality of the colon seen although. stool studies: negative; ova/parasite still pending advanced to soft diet 01/06 improving NIDDM2. BS monitoring with sliding scale insulin Anxiety disorder. Continue home medication Hyperlipidemia. Continue statin Hypertension. Stable. Continue home medications VTE: SCD Code: Full Dispo: ~1 day; states he is homeless, no resources healthcare social worker evaluating cost of hospital to pay for taxi patient trying to get to [place], states he has people there he knows
[2023-01-08] MEDS: INSULIN -REGULAR HUMAN 50 UNIT/0.5 ML ML SQ SCH ×4 (07:30→20:37)
[2023-01-08 07:55] LABS: Albumin 2.8 g/dL (3.4-5.0); Phosphorus 3.7 mg/dL (2.5-4.9); Potassium 4.5 mEq/L (3.5-5.1)
[2023-01-08] MEDS: ENSURE CLEAR 200 ML CAN PO SCH ×2 (08:32→20:37)
[2023-01-08 14:00] LABS: Albumin 2.6 g/dL (3.4-5.0); Potassium 4.2 mEq/L (3.5-5.1)
[2023-01-08 14:06] LABS: Phosphorus 1.5 mg/dL (2.5-4.9)
[2023-01-08] MEDS ORDERED: POTASS/SODIUM PHOSPHATE 1 PKT POWD.PACK PO SCH (14:30)
--- NOTE | 2023-01-08 15:24 | P.PN ---
(S) Delayed entry note, pt seen earlier this AM, pt was eating breakfast, reported overall improvement in abd discomfort and symptoms (O) Vitals reviewed in the EMR General: Alert, In no apparent distress, Cooperative HEENT: Atraumatic Respiratory: Clear to auscultation bilaterally, Normal air movement Cardiovascular: No edema, Regular rate/rhythm Gastrointestinal: Soft and benign, Non-distended, ventral hernias Musculoskeletal: No contractures, No warmth Integumentary: No rashes, No tenderness/swelling Neurological: Normal speech, Normal tone Laboratory Data (last 24 hrs) Reviewed in the EMR Conclusions/Impression: A/P) Stage 1 DANIEL likely due to hypovolemia, other. No hydro on imaging. On underling CKD IIIb/IV with notable proteinuria on spot urine testing (macroalbuminuria and Up/c > 3 gm) in the past Given chronic DM, probable diabetic nephropathy +/- other underlying, imaging also with some signs of CKD -Labs this AM came back with Cr level surprisingly elevated in c/w trend from prev days, likely spurious reported value, repeat level this afternoon lower. Acquired cysts of kidney, abnormal diagnostic imaging of kidneys b/l, calculi (non obstructing) -Simple and mildly complex cysts reported on prior imaging, u/s images from earlier in the day reviewed, report pending. Bladder a bit distended without h ydro HTN with CKD -Held initially scheduled BP meds currently, post hydration BP higher now, will restart CCB Enzo Hannah MD, EDEL
--- NOTE | 2023-01-08 15:39 | RAD REPORT ---
EXAM DESCRIPTION: US - Renal Ultrasound-Complete - 01/08/2023 3:21 pm CLINICAL HISTORY: Worsening renal function/abdominal pain COMPARISON: November 2002 FINDINGS: The right kidney measures 9 cm with a borderline increased echotexture The left kidney measures 9 cm with a borderline increased echotexture On today's exam, the cysts appear simple. Largest is present within the right kidney measuring 2 cent imeters Hydronephrosis is not seen. No gross abnormality of bladder is noted IMPRESSION: No hydronephrosis
[2023-01-08] MEDS: AMLODIPINE 5 MG TAB PO SCH (16:23)
[2023-01-08] MEDS: POTASS/SODIUM PHOSPHATE 1 PKT POWD.PACK PO SCH ×2 (16:26→17:03)
[2023-01-08 20:15] VITALS: O2SAT 96
[2023-01-08 21:18] VITALS: TEMP 97.7
[2023-01-09 04:38] LABS: Phosphorus 2.2 mg/dL (2.5-4.9); Potassium 4.3 mEq/L (3.5-5.1)
[2023-01-09] MEDS: INSULIN -REGULAR HUMAN 50 UNIT/0.5 ML ML SQ SCH (07:30)
[2023-01-09] MEDS: POTASS/SODIUM PHOSPHATE 1 PKT POWD.PACK PO SCH ×3 (08:48→09:00)
[2023-01-09] MEDS: AMLODIPINE 5 MG TAB PO SCH (08:49)
[2023-01-09] MEDS: ENSURE CLEAR 200 ML CAN PO SCH (08:49)
[2023-01-09 08:50] VITALS: BP 152/68
--- NOTE | 2023-01-09 09:07 | P.DS ---
Admission Date: 01/03/23 Discharge Date: 01/09/23 Disposition: ROUTINE DISCHARGE Discharge Condition: FAIR Reason for Admission: Diarrhea, generalized abdominal pain, rectal bleeding and hematochezia. Brief History of Present Illness: Patient is a 77-year-old male with a past medical history significant for anxiety disorder, DM 2, hypertension, hemorrhoids who presents with complaint of diarrhea, generalized abdominal pain, rectal bleeding and hematochezia. Patient was discharged from [facility] the day before presentation for similar symptoms. Patient reported that he has been having bright red blood bleeding intermittently for the past 1 month but became worse. He recently started using Preparation H 2 days ago but has not noticed any improvement. Patient is not quite sure when he started having diarrhea but reported he was having diarrhea every hour prior to coming to the hospital. Patient rated abdominal pain as 5/10 in severity and described pain as aching in quality. Patient also reports rectal pain rated as 10/10 in severity and described as aching\burning in quality. Patient reported that he has not been eating or drinking for 3 days. Patient also reported abdominal distention. Patient reported associated signs and symptoms of dizziness, weakness, fatigue and generalized malaise. CT abdomen and pelvis done on presentation showed moderate retained stool in the rectosigmoid colon. Patient was hospitalized for further management. 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 IVF DCd 01/06 Diet advanced renal function improved Renal u/s (01/08): Unremarkable, no hydronephrosis.. Diffuse colitis with concer for lower GI bleed Constipation h/o hemorrhoids has a history of hemorrhoids. Recently started on Preparation H 2 days ago without no effects on severity of bleeding. H&H stable. General Surgery consulted who recommended medical management f/u in office and will need c-scope in near future +rotavirus (12/24/22) Patient reports episode of diarrhea. No episodes of diarrhea reported since patient came to the hospital. CT abdomen indicates Moderate retained stool in the rectosigmoid colon. No discrete abnormality of the colon seen although. stool studies: negative; ova/parasite still pending Patient tolerated diet. Anxiety disorder. Continued home medication Hyperlipidemia. Continued statin Hypertension. Stable. Continued home medications Vital Signs/Physical Exam: Temp Pulse Resp BP Pulse Ox 97.7 F 72 17 152/68 H 97 01/09/23 04:00 01/09/23 04:00 01/09/23 04:00 01/09/23 08:49 01/09/23 04:00 General: Alert, In no apparent distress, Oriented x3 HEENT: Mucous membr. moist/pink Neck: JVD not distended Respiratory: Clear to auscultation bilaterally, Normal air movement Cardiovascular: No edema, Regular rate/rhythm, Normal S1 S2 Gastrointestinal: Normal bowel sounds, Soft and benign, Non-distended, No tenderness Musculoskeletal: No swelling Integumentary: No rashes, No cyanosis Neurological: Normal strength at 5/5 x4 extr Laboratory Data at Discharge: WBC 6.70 thou/uL (4.3-10.9) 01/06/23 02:31 Hgb 11.2 g/dL (13.6-17.9) L D 01/06/23 02:31 Hct 34.6 % (39.6-49.0) L 01/06/23 02:31 Plt Count 142 thou/uL (152-406) L 01/06/23 02:31 Sodium 139 mEq/L (136-145) 01/09/23 03:45 Potassium 4.3 mEq/L (3.5-5.1) 01/09/23 03:45 BUN 30 mg/dL (7-18) H 01/09/23 03:45 Creatinine 2.16 mg/dL (0.70-1.30) H 01/09/23 03:45 Glucose 165 mg/dL (74-106) H 01/09/23 03:45 Phosphorus 2.2 mg/dL (2.5-4.9) L 01/09/23 03:45 Magnesium 2.0 mg/dL (1.6-2.4) 01/09/23 03:45 Total Bilirubin 0.4 mg/dL (0.2-1.0) 01/06/23 02:31 AST 13 U/L (15-37) L 01/06/23 02:31 ALT 12 U/L (16-61) L 01/06/23 02:31 Alkaline Phosphatase 60 U/L (45-117) 01/06/23 02:31 Lipase 36 U/L (13-75) 01/03/23 05:33 Home Medications: Anxiety And Stress Relief 1 tab PO DAILY 11/29/22 Bismuth Subsalicylate [Kaopectate] 262 mg PO DAILY 11/29/22 Garlique 1 tab PO DAILY 11/29/22 Amlodipine [Norvasc*] 5 mg PO BID #60 tab 01/09/23 Loperamide [Imodium*] 2 mg PO Q4H PRN #20 cap 01/09/23 Metoprolol Tartrate 50 mg PO BID #60 tab 01/09/23 Phenylephrine HCl/Ludlow Butter [Preparation H Suppository] 1 each RC BID #30 supp.rect 01/09/23 Simvastatin 40 mg PO BEDTIME #30 tab 01/09/23 New Medications: Loperamide [Imodium*] 2 mg PO Q4H PRN #20 cap PRN Reason: Diarrhea Metoprolol Tartrate 50 mg PO BID #60 tab Amlodipine [Norvasc*] 5 mg PO BID #60 tab Phenylephrine HCl/Ludlow Butter [Preparation H Suppository] 1 each RC BID #30 supp.rect Simvastatin 40 mg PO BEDTIME #30 tab Physician Discharge Instructions: Patient presented with diarrhea, generalized abdominal pain, rectal bleeding and hematochezia. Followup: Unknown,U [Primary Care Provider] - Time spent managing pt's care (in minutes): 35
== END 2023-01-09 13:17 | disposition home or self-care (01) | DRG 378 ==
LOC: ER 04:34 → ERHOLD 10:28 → 2ND 14:55
PROVIDERS: ADMIT Hospitalist; ATTEND Hospitalist
DX: K92.1 Melena (principal); N17.9 Acute kidney failure, unspecified; K52.9 Noninfective gastroenteritis and colitis, unspecified; F41.9 Anxiety disorder, unspecified; E11.22 Type 2 diabetes mellitus with diabetic chronic kidney disease; E86.0 Dehydration; E86.1 Hypovolemia; I12.9 Hypertensive chronic kidney disease with stage 1 through stage 4 chronic kidney disease, or unspecified chronic kidney disease; N18.32 Chronic kidney disease, stage 3b; K59.00 Constipation, unspecified; N28.1 Cyst of kidney, acquired; Z20.822 Contact with and (suspected) exposure to COVID-19
CPT/HCPCS: 36415; 74018; 74176; 76770; 80048; 80053; 80069; 81001; 82550; 82947; 83690; 83735; 84100; 84484; 85014; 85018; 85025; 86140; 87045; 87046; 87177; 87209; 87324; 87811; 89055; 94760; 96374; 96375; 99285; J1815; J2270; J2405; J7030

== ENCOUNTER 2023-01-22 08:01 | Emergency (ER) | payer OTHER ==
[2023-01-22 08:54] LABS: Absolute Lymphocytes (CBC) 1.7 K/uL (0.7-4.9); Hematocrit 42.3 % (39.6-49.0); Lymphocytes % 28.3 % (15.3-44.8); MCV 90.4 fL (80-100); MPV 10.1 fL (7.6-11.3); RBC Red Blood Cell Count 4.68 M/uL (4.33-5.43)
--- OUTSIDE RECORDS SUMMARY | 2023-01-22 08:56 | XMS REPORT | Continuity of Care Document ---
:1945 Author Organization [facility] t Address [address] [facility]. [address] [place] [address] Care Team Providers Name Role Phone JOSE TREVINO Primary Care Physician Unavailable SERGIO GROVES Attending Clinician Unavailable SERGIO GROVES Attending Clinician Unavailable Sergio Groves DO Attending Clinician LEONARDO BROWN Attending Clinician Unavailable Leonardo Brown MD Attending Clinician JOSÉ CLEMONS Attending Clinician Unavailable José Nicole Attending Clinician Willis_S_MATTHEW Attending Clinician Unavailable Ajibade_O_AH Attending Clinician Unavailable Ige-Odunfernando_J_AH Attending Clinician Unavailable Ivan Contreras Attending Clinician Unavailable Ivan Contreras Attending Clinician Unavailable LEONARDO BROWN Admitting Clinician Unavailable Miller_S_MATTHEW Admitting Clinician Unavailable Ajibade_O_AH Admitting Clinician Unavailable Ige-Odunfernando_J_AH Admitting Clinician Unavailable Ivan Contreras Admitting Clinician Unavailable Payers Payer Name Policy Type Policy Number Effective Date Expiration Date S [place] [place] [id number] 2022 CLASSIC NO PREMIUM 00:00:00 [place] - [id number] [id number] [place] 00[place]00 (MEDICARE REPLACEMENT/ADVANT AGE - HMO) Problems Condition Condition Condition Status Onset Resolution Last Treating Co mments Source Name Details Category Date Date Treatment Clinician Date 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 3-31 Family 00:00: Practic 00 e Noncomplia Noncomplia Problem Active [place] nce with nce with 3-31 Family treatment Treatment 00:00: Prac tic 00 e Multiple Multiple Problem Active Naseem delarosa complicati Complicati 3-29 Fa rissa ons due to ons 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:00: 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 Diabetes Diabetes Problem Active Gusman ge mellitus Mellitus 2-25 Family 00:00: Practic 00 e Hyperlipid Hyperlipid Problem Active [place] emia emia 2-25 Family 00:00: Practic 00 e Morbid Morbid Problem Active [facility] obesity Obesity 2-25 Family 00:00: Practic 00 e Generalize Generalize Problem Active [place] d anxiety d Anxiety 2-25 Fami ly disorder Disorder 00:00: Practi c 00 e Essential Essential Problem Active Rosalio ada hypertensi Hypertensi 2-25 Fa rissa on on 00:00: Practic 00 e Chronic Chronic Problem Active [facility] kidney Kidney 2-25 Family disease Disease 00:00: Practic stage 3 Stage 3 00 e Obesity Obesity Disease Active Univers 9- ity of 00:00: [place] 00 Medical Branch Cataract Cataract Disease Active Overview: Un juanito 9-03 Formattin ity of 00:00: g of this [place] 00 note Medical might be Branch different from the original. ICD10 Diagnosis Term Film Vault Supervisor Utility Personal Personal Disease Active 2006-07 Unive [...] different from the original. ICD10 Diagnosis Term Film Vault Supervisor Utility Essential Essential Disease Active Overview: Univers hypertensi hypertensi 7-05 Formattin ity of on on 00:00: g of this [place] 00 note Medical might be Branch different from the original. ICD10 Diagnosis Term Film Vault Supervisor Utility HLD HLD Disease Active Overview: Univer s (hyperlipi (hyperlipi 7-05 Formattin ity of demedith) demia) 00:00: g of this [place] 00 note Medical might be Branch different from the original. ICD10 Diagnosis Term Film Vault Supervisor Utility Allergies, Adverse Reactions, Alerts Allergy Allergy Status Severity Reaction(s) Onset Inactive Treating Comm ents Source Name Type Date Date Clinician No Known Drug [facility] Active [facility] NO KNOWN Drug Active [facility] Class ity of S [facility] Social History Social Habit Start Date Stop Date Quantity Comments Source History of tobacco Cigarette Smoker University of use [facility] Alcohol intake 2022-02-07 2022-02-07 Current drinker Unive rsity of 00:00:00 00:00:00 of alcohol [facility] [place] Cigarettes smoked 2007-09-05 2007-09-05 Univers ity of current (pack per 00:00:00 00:00:00 [facility] ) - Reported Branch Cigarette 2007-09-05 2007-09-05 University of pack-years 00:00:00 00:00:00 [facility] Tobacco Comment 2006-08-03 2006-08-03 has quit off/on Univ ersity of 00:00:00 00:00:00 for up to 7 [facility] Alcohol Comment 2006-08-03 2006-08-03 0-2 drinks/month Uni versity of 00:00:00 00:00:00 [facility] Sex [birth year] Universit y of 00:00:00 00:00:00 [facility] Smoking Status Start Date Stop Date Source Former Smoker [place] Family Aramis morrison Smokes tobacco daily 2007-09-05 00:00:00 Univers ity of [facility] Medications Ordered Filled Start Stop Current Ordering Indication Dosage Frequency Signature Comments Components Source Medication Medication Date Date Medication? Clinician (SIG) Name Name meclizine 2022- No 25mg 25 mg, Unive rs (TRAVEL-EAS 01-15 Oral, ity of E 16:15: 20:25 ONCE, 1 [place] (MECLIZINE) 00 :00 dose, On Medi chidi ) tablet 25 Mon Branch mg 01/15/23 at 1115, MADI meclizine 2022-0 Yes [id number] 25mg Take 1 U nivers 25 mg 6-19 tablet by ity of tablet 00:00: mouth 3 [place] 00 (three) Medical times Branch daily as needed for Dizziness. meclizine 2022-0 Yes [id number] 25mg Take 1 U nivers 25 mg 6-19 tablet by ity of tablet 00:00: mouth 3 [place] 00 (three) Medical times Branch daily as needed for Dizziness. metFORMIN 2022-0 Yes [id number] 500mg Take 1 Univers 500 mg 6-06 tablet by ity of tablet 00:00: mouth in [place] 00 the Medical morning Branch and 1 tablet in the evening. hydrocortis 2022-0 Yes [id number] Insert Univers one 2.5 % 6-06 into ity of rectal 00:00: rectum 2 [place] cream 00 (two) Medical times Branch daily. metFORMIN 2022-0 Yes [id number] 500mg Take 1 Univers 500 mg 6-06 tablet by ity of tablet 00:00: mouth in [place] 00 the Medical morning Branch and 1 tablet in the evening. hydrocortis 2022-0 Yes [id number] Insert Univers one 2.5 % 6-06 into ity of rectal 00:00: rectum 2 [place] cream 00 (two) Medical times Branch daily. metFORMIN 2022-0 Yes [id number] 500mg Take 1 Univers 500 mg 6-06 tablet by ity of tablet 00:00: mouth in [place] 00 the Medical morning Branch and 1 tablet in the evening. hydrocortis 2022-0 Yes [id number] Insert Univers one 2.5 % 6-06 into ity of rectal 00:00: rectum 2 [place] cream 00 (two) Medical times Branch daily. docusate 2022-0 2022- Yes [id number] 100mg Take 1 U nivers (COLACE) 6-07 capsule by ity of 100 mg 00:00: 04:59 mouth in [place] capsule 00 :00 the Medical morning Branch for 30 days. omeprazole 2022-0 2022- Yes [id number] 40mg Take 1 Univers 40 mg 6- 07-07 capsule by ity of capsule 00:00: 04:59 mouth in [place] 00 :00 the Medical morning Branch for 30 days. docusate 2022-0 2022- Yes [id number] 100mg Take 1 U nivers (COLACE) 01-02- capsule by ity of 100 mg 00:00: 04:59 mouth in [place] capsule 00 :00 the Medical morning Branch for 30 days. omeprazole 2022- Yes [id number] 40mg Take 1 Univers 40 mg 01-02- capsule by ity of capsule 00:00: 04:59 mouth in [place] 00 :00 the Medical morning Branch for 30 days. docusate 2022- Yes [id number] 100mg Take 1 U nivers (COLACE) 01-02- capsule by ity of 100 mg 00:00: 04:59 mouth in [place] capsule 00 :00 the Medical morning Branch for 30 days. omeprazole 2022- Yes [id number] 40mg Take 1 Univers 40 mg 01-02- capsule by ity of capsule 00:00: 04:59 [...] (four) Medical opthalmic times Branch drops daily. prednisoLON Yes 1[drp] Place 1 U nivers [...] (four) Medical opthalmic times Branch drops daily. prednisoLON Yes 1[drp] Place 1 U nivers [...] in ity of (CILOXAN) 00:00: right eye Shaen as 0.3 % 00 4 (four) Medical opthalmic times Branch drops daily. LANTUS Yes Univers SOLOSTAR 3-17 ity of 100 unit/mL 00:00: [place] (3 mL) InPn 00 Medical Branch LANTUS Yes Univers SOLOSTAR 3-17 ity of 100 unit/mL 00:00: [place] (3 mL) InPn 00 Medical Branch LANTUS Yes Univers SOLOSTAR 3-17 ity of 100 unit/mL 00:00: [place] (3 mL) InPn 00 Medical Branch metoprolol Yes Univers tartrate 3-07 ity of (LOPRESSOR) 00:00: [place] 50 mg 00 Medical tablet Branch metoprolol Yes Univers tartrate 3-07 ity of (LOPRESSOR) 00:00: [place] 50 mg 00 Medical tablet Branch metoprolol 0 Yes Univers tartrate 3-07 ity of (LOPRESSOR) 00:00: [place] 50 mg 00 Medical tablet Branch MULTIVITAMI 2009-07 Yes one daily U nivers N ORAL LIQD 2-28 ity of 09:25: [address] Branch MULTIVITAMI 2009-07 Yes one daily U nivers N ORAL LIQD 2-28 ity of 09:25: [address] MULTIVITAMI 2009-07 Yes one daily U nivers N ORAL LIQD 2-28 ity of 09:25: [address] FISH OIL 2009-07 Yes po bid Univers ORAL 2-28 ity of 09:25: [address] FISH OIL 2009-07 Yes po bid Univers ORAL 2-28 ity of 09:25: [address] FISH OIL 2009-07 Yes po bid Univers ORAL 2-28 ity of 09:25: [address] blood sugar Yes [id number] Un juanito diagnostic 8- ity of (CHEMSTRIP 00:00: [place] BG) strip 00 [facility] blood sugar Yes [id number] Un juanito diagnostic 8 ity of (CHEMSTRIP 00:00: [place] BG) strip 00 [facility] blood sugar Yes [id number] Un juanito diagnostic 8 ity of (CHEMSTRIP 00:00: [place] BG) strip 00 [facility] Asprin Ec Asprin Ec No 1 Q1D [...] route. hydroxyzine hydroxyzine No 2 Q12H hydroxyzin [place] HCl 25 mg HCl 25 mg e [...] Immunizations Ordered Filled Immunization Date Status Comments [facility] e Immunization Name Name Pneumococcal 2008-09-07 Completed [place] o f Polysaccharide, 00:00:00 [facility] ical PPSV23 (PNEUMOVAX) Branch Pneumococcal 2008-09-07 Completed [place] o f Polysaccharide, 00:00:00 [facility] ical PPSV23 (PNEUMOVAX) Branch Pneumococcal 2008-09-07 Completed [place] o f Polysaccharide, 00:00:00 [facility] ical PPSV23 (PNEUMOVAX) [place] Influenza Virus 2007-05-31 Completed Universit y of Vaccine 00:00:00 [facility] Influenza Virus 2007-05-31 Completed Universit y of Vaccine 00:00:00 [facility] Influenza Virus 2007-05-31 Completed Universit y of Vaccine 00:00:00 [facility] Vital Signs Vital Name Observation Time Observation Value Comments Source Systolic blood 2023-01-16 20:00:00 160 [facility]Hg[facility] 2023-01-16 20:00:00 74 mm[Hg] Unive [facility] Heart rate 2023-01-16 20:00:00 65 /min [facility] Body temperature 2023-01-16 20:00:00 36.33 Monse [facility] Respiratory rate 2023-01-16 20:00:00 18 /min [facility] Oxygen saturation in 2023-01-16 20:00:00 98 /min [facility] Arterial blood by [facility] Pulse oximetry Branch Body weight 2023-01-16 14:47:00 90.719 kg [facility] BMI 2023-01-16 14:47:00 28.70 kg/m2 [facility] Systolic blood 2023-01-15 23:00:00 144 mm[Hg] Univer [facility] Diastolic blood 2023-01-15 23:00:00 87 mm[Hg] Unive rsity of pressure [place] [facility] Heart rate 2023-01-15 23:00:00 58 /min Universi ty of [place] [facility] Respiratory rate 2023-01-15 23:00:00 18 /min Univ ersity of [place] [facility] Oxygen saturation in 2023-01-15 23:00:00 99 /min University of Arterial blood by [place] Medi chidi Pulse oximetry Branch Body temperature 2023-01-15 14:34:00 36.67 Monse Univ ersity of [place] [facility] Body weight 2023-01-15 14:34:00 90.719 kg Universi ty of [place] [facility] BMI 2023-01-15 14:34:00 28.70 kg/m2 Universi ty of [place] [facility] Systolic blood 2023-01-02 19:00:00 139 mm[Hg] Univer sity of pressure [place] [facility] Diastolic blood 2023-01-02 19:00:00 80 mm[Hg] Unive rsity of pressure [place] [facility] Heart rate 2023-01-02 19:00:00 60 /min Universi ty of [place] [facility] Respiratory rate 2023-01-02 19:00:00 16 /min Univ ersity of [place] [facility] Oxygen saturation in 2023-01-02 19:00:00 99 /min University of Arterial blood by [place] [facility] chidi Pulse oximetry Branch Body temperature 2023-01-02 15:48:00 36.72 Monse Univ ersity of [place] [facility] Body height 2023-01-02 15:48:00 177.8 cm Universi ty of [place] [facility] Body weight 2023-01-02 15:48:00 113.399 kg Universi ty [facility] [place] [facility] BMI 2023-01-02 15:48:00 35.87 kg/m2 [facility]i ty [facility] [place] [facility] Height 2020-10-27 00:00:00 70 [in_i] [facility] Family Practice BMI (Body Mass 2020-10-27 00:00:00 37.3 kg/m2 [facility] e Family Index) Practice Body Weight 2020-10-27 00:00:00 260 [lb_av] [facility] Family Practice BP Diastolic 2020-09-23 00:00:00 86 mm[Hg] [facility] Family Practice Height 2020-09-23 00:00:00 70 [in_i] [facility] BMI (Body Mass 2020-09-23 00:00:00 37.3 kg/m2 [facility] Family Index) Practice BP Systolic 2020-09-23 00:00:00 136 mm[Hg] [facility] Body Weight 2020-09-23 00:00:00 260 [lb_av] [facility] Height/Length 2021-08-16 11:09:21 177.80 cm Measured Weight Dosing 2021-08-16 11:09:21 108.86 kg Procedures Procedure Date / Time Performed Performing Clinician [facility] deo COMP. METABOLIC PANEL 2023-01-16 16:29:00 Sergio Groves [facility] ([id number]) [facility] CBC WITH DIFF 2023-01-16 16:00:00 Rei GrovesArleth [facility] TROPONIN I 2023-01-15 20:04:00 Leonardo Brown [facility] COMP. METABOLIC PANEL 2023-01-15 20:04:00 Leonardo Brown [facility] ([id number]) [facility] CBC WITH DIFF 2023-01-15 20:04:00 Leonardo Brown [facility] CT HEAD WO CONTRAST 2023-01-15 17:57:13 Leonardo Brown [facility] URINALYSIS 2023-01-02 17:22:00 José Clemons [facility] LIPASE 2023-01-02 16:51:00 [facility] COMP. METABOLIC PANEL 2023-01-02 16:51:00 [facility] ([id number]) [facility] CBC WITH DIFF 2023-01-02 16:51:00 Kaci [facility] Screening for [facility] Malignant Neoplasm of Practice Prostate Extraction of Cataract [facility] Practice Removal of Colon [facility] Encounters Start End Encounter Admission Attending Care Care Encounter Source Date/Time Date/Time Type Type Clinicians Facility Department ID 2023-01-16 2023-01-16 Emergency X SERGIO GROVES [facility] ERT 1 [id number] Univers 09:49:00 15:42:00 YANELI, REI-ARLETH ity of [facility] 2023-01-16 2023-01-16 Emergency Yaneli, TRAUMA [id number] Univers 09:49:00 15:42:[facility] [id number] [id number] [id number] [address] 2023-01-15 2023-01-15 Emergency X MORRICAL, [facility] ERT [id number] Univers 09:35:00 19:31:00 LEONARDO ity of [facility] 2023-01-15 2023-01-15 Emergency Morrical, TRAUMA [id number] Univers 09:35:00 [facility]:31:[facility] [id number] [place] [id number] [address] 2023-01-02 2023-01-02 Emergency X KACI, [facility] ERT [id number] Univers 10:42:00 14:44:00 CYNISE ity of [facility] 2023-01-02 2023-01-[address] [facility] [id number] Univers 10:42:00 14:44:00 José ALTAMIRANORAVEN [id number] i ty [facility] [id number] [facility] [id number] [place] [id number] Branch 2021-01-04 2021-01-04 Outpatient Miller_S_AH VFP VFP [id number] [facility] 03:27:00 03:27:00 [id number] Family Practic e 2020-11-10 2020-11-10 Outpatient Ajibade_O_A VFP VFP [id number] [facility] 06:52:00 06:52:00 H [id number] Family Practic e 2020-10-27 2020-10-27 Outpatient Ajibade_O_A VFP VFP [id number] [facility] 01:51:00 01:51:00 H [id number] Family Practic e 2020-10-27 2020-10-27 Om[place] VFP [place] - [id number] [place] 00:00:00 00:00:00 Sukhwinder Carrasquillo Famil y SQUAD SERGEANT: [id number] Medical - Pract corazon Tammi Crowder, [email or web address] [address] [place] [phone] , Ph. 2020-10-21 2020-10-21 Outpatient Ajibade_O_A VFP VFP [id number] [place] 08:40:00 08:40:00 H 94373 Family Practic e 2020-09-23 2020-09-23 Outpatient Ajibade_O_A VFP VFP [phone] [place] 04:30:00 04:30:00 H 19230 Family Practic e 2020-09-23 2020-09-23 Omiana VFP [place] - [id number] V illage 00:00:00 00:00:00 Sukhwinder Carrasquillo Famil y SQUAD SERGEANT: [id number] Medical - Pract corazon Tammi Crowder, [email or web address] [address] [place] [phone] , Ph. 2020-03-25 2020-03-25 Outpatient Ajibade_O_A VFP VFP [id number] [place] 04:36:00 04:36:00 H 69551 Family Practic e 2020-03-25 2020-03-25 Outpatient Ajibade_O_A VFP VFP [phone] [facility] 04:36:00 04:36:00 H [id number] Family Practic e 2020-03-25 2020-03-25 Outpatient Ajibade_O_A VFP VFP [id number] [facility] 04:36:00 04:36:00 H 35806 Family Practic e 2020-03-25 2020-03-25 Outpatient Ajibade_O_A VFP VFP [phone] [place] 04:36:00 04:36:00 H 40864 Family Practic e 2019-09-17 2019-09-17 Outpatient Ige-Odunuga VFP VFP [phone] [place] 07:13:00 07:13:00 _Maximus_MATTHEW [id number] Family Practic e 2019-09-17 2019-09-17 Outpatient Ige-Odunuga VFP VFP [phone] [place] 07:13:00 07:13:00 _J_AH [id number] Family Practic e 2019-07-03 2019-07-08 Inpatient 1 Ivan Contreras [facility] [id number] 10:34:00 13:25:00 Ivan Contreras [facility] Results Test Description Test Time Test Comments Results Result Comments Source TROPONIN I 2023-01-15 20:33:31 Test Item Value Reference Range Interpretation Comme nts TROPONIN I (test code = 6519432921) 0.007 ng/mL <=0.034 ROMINA (test code = ROMINA) Reference (Normal) Range (defined by the 99th percentile reference limit): <= 0.034 ng/mL Note: Cardiac troponin begins to rise 3-4 hours after the onset of ischemia. Repeat in 4-6 hours if the sample was drawn within 3-4 hours of the onset of the symptom and found normal. Diagnosis of myocardial injury is made with acute changes in cTn concentrations with at least one serial sample above the 99th percentile upper reference limit (URL), taken together with the patient's clinical presentation. Biotin has been reported to cause a negative bias, interpret results relative to patient's use of biotin. Lab Interpretation (test code = Normal 21579-8) [facility]. METABOLIC PANEL ([id number])2023-01-15 20:22:53 Test Item Value Reference Range Interpretation Comments NA (test code = 135 mmol/L 135-145 7836814449) K (test code = 5.4 mmol/L 3.5-5.0 H 2818439828) CL (test code = 106 mmol/L 98-108 8398864408) CO2 TOTAL (test code = 22 mmol/L 23-31 L 5588495341) AGAP (test code = 7 2-16 0464420545) BUN (test code = 23 mg/dL 7-23 2693899068) GLUCOSE (test code = 135 mg/dL 70-110 H 4656112111) CREATININE (test code = 2.05 mg/dL 0.60-1.25 H 4708004866) TOTAL BILI (test code = 0.5 mg/dL 0.1-1.8 3033232137) CALCIUM (test code = 8.6 mg/dL 8.6-10.6 6881730687) T PROTEIN (test code = 6.5 g/dL 6.3-8.2 9627478351) ALBUMIN (test code = 3.6 g/dL 3.5-5.0 0857076773) ALK PHOS (test code = 74 U/L 34-122 1080793991) ALTv (test code = 17 U/L 5-50 1742-6) AST(SGOT) (test code = 24 U/L 13-40 7041272611) eGFR (test code = 31.7 mL/min/1.73m2 9940829968) ROMINA (test code = ROMINA) Association of Glomerular Filtration Rate (GFR) and Staging of Kidney Disease* + --+ --+ ------+| GFR (mL/min/1.73 m2) ?| With Kidney Damage ?| ?Without Kidney Damage+ --------+ --------+ +| ?>90 ?| ?Stage one ?| ? Normal ?+ ---+ ---+ -------+| ?60-89 ?| ?Stage two ?| ? Decreased GFR ? + --+ --+ ------+| ?30-59 ?| ?Stage three ?| ? Stage three ? + --+ --+ ------+| ?15-29 ?| ?Stage four ? | ? Stage four ?+ ---+ ---+ -------+| ?<15 (or dialysis) ? ?| ?Stage five ? | ? Stage five ?+ ---+ ---+ -------+ *Each stage assumes the associated GFR [...] or abnormalities in imaging tests). Lab Interpretation Abnormal (test code = 31297-5) [facility] WITH [id number] 20:13:15 Test Item Value Reference Range Interpretation Comments WBC (test code = 6.78 See_Comment [Automated message] 9190-2) The system [employer] generated this result transmitted ref erence range: 4.20 - 1 0.70 10*3/?L. The re ference range was not u sed to interpret this result as normal/abnor mal. RBC (test code = 4.48 See_Comment [Automated message] 789-8) The system [employer] generated this result transmitted ref erence range: 4.26 - 5 .52 10*6/?L. The re ference range was not u sed to interpret this result as normal/abnor mal. HGB (test code = 13.1 g/dL 12.2-16.4 718-7) HCT (test code = 39.9 % 38.4-49.3 4544-3) MCV (test code = 89.1 fL 81.7-95.6 787-2) MCH (test code = 29.2 pg 26.1-32.7 785-6) MCHC (test code = 32.8 g/dL 31.2-35.0 786-4) RDW-SD (test code 43.1 fL 38.5-51.6 = 83286-0) RDW-CV (test code 13.3 % 12.1-15.4 = 788-0) PLT (test code = 239 See_Comment [Automated message] 977-3) The system [employer] generated this result transmitted ref erence range: 150 - 32 8 10*3/?L. The re ference range was not u sed to interpret this result as normal/abnor mal. MPV (test code = 11.3 fL 9.8-13.0 97217-2) NRBC/100 WBC (test 0.0 See_Comment [Automat ed message] code = 9100870812) The [employer] which generated this result transmitted ref erence range: 0.0 - 10 .0 /100 WBCs. The refer ence range was not u sed to interpret this result as normal/abnor mal. NRBC x10^3 (test See_Comment [Automated message] code = 4612714568) The syste m which generated this result transmitted ref erence range: 10*3/?L. The reference range was not used to interpr et this result as normal/abnormal . GRAN MAT (NEUT) % 66.6 % (test code = 770-8) IMM GRAN % (test 0.40 % code = 9857481256) LYMPH % (test code 25.7 % = 736-9) MONO % (test code 5.9 % = 5905-5) EOS % (test code = 1.0 % 713-8) BASO % (test code 0.4 % = 706-2) GRAN MAT 4.51 10*3/uL 1.99-6.95 x10^3(ANC) (test code = 6283845576) IMM GRAN x10^3 0.03 10*3/uL 0.00-0.06 (test code = 3879083029) LYMPH x10^3 (test 1.74 10*3/uL 1.09-3.23 code = 731-0) MONO x10^3 (test 0.40 10*3/uL 0.36-1.02 code = 742-7) EOS x10^3 (test 0.07 10*3/uL 0.06-0.53 code = 711-2) BASO x10^3 (test 0.03 10*3/uL 0.01-0.09 code = 704-7) [facility] ([id number])2023-01-02 18:18:34 Test Item Value Reference Range Interpretation Comments NA (test code = 136 mmol/L 135-145 7583974649) K (test code = 4.7 mmol/L 3.5-5.0 6341782347) CL (test code = 103 mmol/L 98-108 5511259890) CO2 TOTAL (test code = 18 mmol/L 23-31 L 9677109908) AGAP (test code = 15 2-16 1237064637) BUN (test code = 40 mg/dL 7-23 H 1975373163) GLUCOSE (test code = 154 mg/dL 70-110 H 7204215781) CREATININE (test code = 2.46 mg/dL 0.60-1.25 H 6758706792) TOTAL BILI (test code = 0.7 mg/dL 0.1-1.4 2836506138) CALCIUM (test code = 8.6 mg/dL 8.6-10.6 0512311809) T PROTEIN (test code = 6.3 g/dL 6.3-8.2 8032633325) ALBUMIN (test code = 3.7 g/dL 3.5-5.0 3567963331) ALK PHOS (test code = 77 U/L 34-122 2700958721) ALTv (test code = 15 U/L 5-50 1742-6) AST(SGOT) (test code = 23 U/L 13-40 5104175542) eGFR (test code = 25.7 mL/min/1.73m2 0785662050) ROMINA (test code = ROMINA) Association of Glomerular Filtration Rate (GFR) and Staging of Kidney Disease* + --+ --+ ------+| GFR (mL/min/1.73 m2) ?| With Kidney Damage ?| ?Without Kidney Damage+ --------+ --------+ +| ?>90 ?| ?Stage one ?| ? Normal ?+ ---+ ---+ -------+| ?60-89 ?| ?Stage two ?| ? Decreased GFR ? + --+ --+ ------+| ?30-59 ?| ?Stage three ?| ? Stage three ? + --+ --+ ------+| ?15-29 ?| ?Stage four ? | ? Stage four ?+ ---+ ---+ -------+| ?<15 (or dialysis) ? ?| ?Stage five ? | ? Stage five ?+ ---+ ---+ -------+ *Each stage assumes the associated GFR [...] or abnormalities in imaging tests). Lab Interpretation Abnormal (test code = 05553-0) [id number] Test Item Value Reference Range Interpretation Comments LIPASE (test code = 8206963346) 159 U/L 0-220 Lab Interpretation (test code = Normal 48978-3) [facility] WITH [id number] 18:00:33 Test Item Value Reference Range Interpretation Comments WBC (test code = 7.13 See_Comment [Automated 6690-2) message] The sy stem which generated this [...] RDW-SD (test code = 43.6 fL 38.5-51.6 83643-2) RDW-CV (test code = 13.3 % 12.1-15.4 788-0) PLT (test code = 162 See_Comment [Automated 777-3) message] The sy stem which generated this result transmitted reference range : 150 - 328 10*3/ ?L. The reference r lesli was not used to interpret this result as normal/abnormal . MPV (test code = 12.7 fL 9.8-13.0 35819-0) NRBC/100 WBC (test 0.0 See_Comment [Automat ed code = 1286202801) message] The system which generated this result transmitted reference range : 0.0 - 10.0 /100 WBCs. The refer ence range was not u sed to interpret th is result as normal/abnormal . NRBC x10^3 (test code See_Comment [Auto mated = [id number]) message] The s ystem which generated this result transmitted reference range : 10*3/?L. The reference range was not used to interpret this result as normal/abnormal . GRAN MAT (NEUT) % 75.0 % (test code = 770-8) IMM GRAN % (test code 0.60 % = 1706726402) LYMPH % (test code = 17.4 % 736-9) MONO % (test code = 6.0 % 5905-5) EOS % (test code = 0.6 % 713-8) BASO % (test code = 0.4 % 706-2) GRAN MAT x10^3(ANC) 5.35 10*3/uL 1.99-6.95 (test code = 5666298427) IMM GRAN x10^3 (test 0.04 10*3/uL 0.00-0.06 code = 9653011783) LYMPH x10^3 (test code 1.24 10*3/uL 1.09-3.23 = 731-0) MONO x10^3 (test code 0.43 10*3/uL 0.36-1.02 = 742-7) EOS x10^3 (test code = 0.04 10*3/uL 0.06-0.53 L 711-2) BASO x10^3 (test code 0.03 10*3/uL 0.01-0.09 = 704-7) Lab Interpretation Abnormal (test code = 29206-4) [facility] [id number] 10:41:53 Test Item Value Reference Range Interpretation Comments Glucose POC (test 140 mg/dL 70-115 H Notify RN or MDIf you code = Glucose POC) consider your patient critically ill, the Sj-Accu Chec k Infrom II meter should not be used for Glucos e determination. Draw a venous Glucose and send to the main Lab for analysis. POC [id number] 07:11:51 Test Item Value Reference Range Interpretation Comments Glucose POC (test 118 mg/dL 70-115 H Notify RN or MDIf you code = Glucose POC) consider your patient critically ill, the Sj-Accu Chec k Infrom II meter should not be used for Glucos e determination. Draw a venous Glucose and send to the main Lab for analysis. POC [id number] 19:44:19 Test Item Value Reference Range Interpretation Comments Glucose POC (test 151 mg/dL 70-115 H Notify RN or MDIf you code = Glucose POC) consider your patient critically ill, the Sj-Accu Chec k Infrom II meter should not be used for Glucos e determination. Draw a venous Glucose and send to the main Lab for analysis. POC [id number] 15:05:21 Test Item Value Reference Range Interpretation Comments Glucose POC (test 119 mg/dL 70-115 H Notify RN or MDIf you code = Glucose POC) consider your patient critically ill, the Sj-Accu Chec k Infrom II meter should not be used for Glucos e determination. Draw a venous Glucose and send to the main Lab for analysis. POC [id number] 11:16:17 Test Item Value Reference Range Interpretation Comments Glucose POC (test 132 mg/dL 70-115 H Notify RN or MDIf you code = Glucose POC) consider your patient critically ill, the Sj-Accu Chec k Infrom II meter should not be used for Glucos e determination. Draw a venous Glucose and send to the main Lab for analysis. POC [id number] 06:17:22 Test Item Value Reference Range Interpretation Comments Glucose POC (test 121 mg/dL 70-115 H Notify RN or MDIf you code = Glucose POC) consider your patient critically ill, the Sj-Accu Chec k Infrom II meter should not be used for Glucos e determination. Draw a venous Glucose and send to the main Lab for analysis. POC [id number] 20:10:13 Test Item Value Reference Range Interpretation Comments Glucose POC (test 133 mg/dL 70-115 H If you con skiver hand your code = Glucose POC) patient critically ill, the Sj-Accu Check Infrom II meter should not be used for Glucose determination. Draw a venous Glucose and send to the main Lab for analysis. POC [id number] 06:13:49 Test Item Value Reference Range Interpretation Comments Glucose POC (test 116 mg/dL 70-115 H If you con skiver hand your code = Glucose POC) patient critically ill, the Sj-Accu Check Infrom II meter should not be used for Glucose determination. Draw a venous Glucose and send to the main Lab for analysis. POC [id number] 19:55:46 Test Item Value Reference Range Interpretation Comments Glucose POC (test 121 mg/dL 70-115 H If you con skiver hand your code = Glucose POC) patient critically ill, the Sj-Accu Check Infrom II meter should not be used for Glucose determination. Draw a venous Glucose and send to the main Lab for analysis. POC [id number] 16:21:40 Test Item Value Reference Range Interpretation Comments Glucose POC (test 126 mg/dL 70-115 H Notify RN or MDIf you code = Glucose POC) consider your patient critically ill, the Sj-Accu Chec k Infrom II meter should not be used for Glucos e determination. Draw a venous Glucose and send to the main Lab for analysis. POC [id number] 12:10:14 Test Item Value Reference Range Interpretation Comments Glucose POC (test 138 mg/dL 70-115 H Notify RN or MDIf you code = Glucose POC) consider your patient critically ill, the Sj-Accu Chec k Infrom II meter should not be used for Glucos e determination. Draw a venous Glucose and send to the main Lab for analysis. POC [id number] 06:38:10 Test Item Value Reference Range Interpretation Comments Glucose POC (test 112 mg/dL 70-115 If you con skiver hand your code = Glucose POC) patient critically ill, the Sj-Accu Check Infrom II meter should not be used for Glucose determination. Draw a venous Glucose and send to the main Lab for analysis. POC [id number] 19:46:42 Test Item Value Reference Range Interpretation Comments Glucose POC (test 107 mg/dL 70-115 If you con skiver hand your code = Glucose POC) patient critically ill, the Sj-Accu Check Infrom II meter should not be used for Glucose determination. Draw a venous Glucose and send to the main Lab for analysis. RPR [id number] 15:31:56 Test Item Value Reference Range Interpretation Comments RPR Qual (test code = RPR Qual) Non-Reactive Non-Reactive Reactive Control (test code = Reactive Reactive Control) Weak Reactive Control (test Weak Reactive code = Weak Reactive Control) Non-Reactive Control (test code Non-Reactive = Non-Reactive Control) Lot # (test code = Lot #) [id number] Expiration Dt (test code = 05-29-20 N Expiration Dt) POC [id number] 15:06:05 Test Item Value Reference Range Interpretation Comments Glucose POC (test 118 mg/dL 70-115 H Notify RN or MDIf you code = Glucose POC) consider your patient critically ill, the Sj-Accu Chec k Infrom II meter should not be used for Glucos e determination. Draw a venous Glucose and send to the main Lab for analysis. POC [id number] 11:12:35 Test Item Value Reference Range Interpretation Comments Glucose POC (test 146 mg/dL 70-115 H If you con skiver hand your code = Glucose POC) patient critically ill, the Sj-Accu Check Infrom II meter should not be used for Glucose determination. Draw a venous Glucose and send to the main Lab for analysis. POC [id number] 07:42:11 Test Item Value Reference Range Interpretation Comments Glucose POC (test 122 mg/dL 70-115 H If you con skiver hand your code = Glucose POC) patient critically ill, the Sj-Accu Check Infrom II meter should not be used for Glucose determination. Draw a venous Glucose and send to the main Lab for analysis. POC [id number] 19:17:06 Test Item Value Reference Range Interpretation Comments Glucose POC (test 114 mg/dL 70-115 If you con skiver hand your code = Glucose POC) patient critically ill, the Sj-Accu Check Infrom II meter should not be used for Glucose determination. Draw a venous Glucose and send to the main Lab for analysis. Urinalysis [id number] 12:27:32 Test Item Value Reference Range Interpretation Comments UA WBC (test code = UA WBC) 0-5 0-5 UA RBC (test code = UA RBC) 0-5 0-5 UA Squam Epithelial (test code = UA 0-5 Squam Epithelial) Comprehensive Metabolic [id number] 12:12:02 Test Item Value Reference Range Interpretation [...] A/G 1.6 ratio N Ratio) Comprehensive Metabolic [id number] 12:12:02 Test Item Value Reference Range Interpretation [...] National Kidney Foundation, http://nkdep.ni h.gov Comprehensive Metabolic [id number] 12:12:02 Test Item Value Reference Range Interpretation [...] National Kidney Foundation, http://nkdep.ni h.gov Urine Drug [id number] 12:01:40 Test Item Value Reference Range Interpretation [...] if desired . Complete Blood Count with [id number] 11:38:14 Test Item Value Reference Range Interpretation [...] code = IPF) 0 % N Automated [id number] 11:38:14 Test Item Value Reference Range Interpretation Comments Neutro Auto (test code = Neutro 76.4 % 36.0-70.0 H Auto) Lymph Auto (test code = Lymph Auto) 15.8 % 12.0-44.0 Cass Auto (test code = Cass Auto) 6.7 % 0.0-11.0 Eos, Auto (test code = Eos, Auto) 0.3 % 0.0-7.0 Basophil Auto (test code = Basophil 0.4 % 0.0-2.0 Auto) Neutro Absolute (test code = Neutro 5.3 x10 1.6-7.4 Absolute) Lymph Absolute (test code = Lymph 1.09 x10 .50-4.60 Absolute) Cass Absolute (test code = Cass .46 x10 .00-1.20 Absolute) Eos Absolute (test code = Eos 0.02 x10 0.00-0.74 Absolute) Baso Absolute (test code = Baso 0.03 x10 0.00-0.21 Absolute) IG [id number] 11:38:14 Test Item Value Reference Range Interpretation Comments IG (test code = IG) 0.4 % 0.0-5.0 IG Abs (test code = IG Abs) 0 x10 N Urinalysis with Culture, if [id number] 11:37:19 Test Item Value Reference Range Interpretation [...] Micro Ind?) rule GL_SJM_UA_MICRO _IN D POC [id number] 11:07:06 Test Item Value Reference Range Interpretation Comments Glucose POC (test 123 mg/dL 70-115 H If you con skiver hand your code = Glucose POC) patient critically ill, the Sj-Accu Check Infrom II meter should not be used for Glucose determination. Draw a venous Glucose and send to the main Lab for analysis."
[2023-01-22] MEDS ORDERED: NA CHLORIDE 0.9% 500 ML ONE (09:06)
[2023-01-22 09:08] LABS: Albumin 3.4 g/dL (3.4-5.0); Bilirubin Total 0.5 mg/dL (0.2-1.0); Potassium 4.9 mEq/L (3.5-5.1); Protein, Total 7.4 g/dL (6.4-8.2)
--- NOTE | 2023-01-22 09:26 | EDPHYS ---
Physician Documentation [facility] Name: Arun Mccall Age: 77 yrs Sex: Male : 1945 Arrival Date: 01/22/2023 Time: 08:01 Bed 14 Private MD: ED Physician Atul Martinez HPI: 01/22 08:19 This 77 yrs old Male presents to ER via Unassigned with complaints of bs3 Generalized weakness, dehydration, chronic diarrhea. 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 Historical: - Allergies: 09:18 fenofibrate nanocrystallized; ko1 09:18 insulin degludec; ko1 - PMHx: 09:18 Anxiety; Diabetes - IDDM; Diverticulitis; hemroids; Hypertension; ko1 - PSHx: 09:18 colon sx; ko1 - Immunization history:: Adult Immunizations unknown. - Social history:: Smoking status: Patient denies any tobacco usage or history of. ROS: 08:19 Constitutional: Negative for fever, chills bs3 08:19 All other systems are negative. Exam: 08:19 Constitutional: This is a well developed, well nourished patient who is awake, alert, bs3 and in no acute distress. Head/Face: Normocephalic, atraumatic. Eyes: Pupils equal round and reactive to light, extra-ocular motions intact. Lids and lashes normal. ENT: mmm, no posterior phyarngeal erythema Neck: Trachea midline, no thyromegaly, no neck stiffness Chest/axilla: Normal chest wall appearance and motion. Nontender with no deformity. No lesions are appreciated. Cardiovascular: Regular rate and rhythm with a normal S1 and S2. symmetric pulses in upper extremities Respiratory: Lungs have equal breath sounds bilaterally, clear to auscultation, no respiratory distress Abdomen/GI: Soft, non-tender, no rebound or guarding Skin: Warm, dry with normal turgor. Normal color with no rashes, no lesions, and no evidence of cellulitis. MS/ Extremity: Chronic changes to the right lower extremity with varicose veins, no calf tenderness no swelling Neuro: Awake and alert, GCS 15, oriented to person, place, time, and situation. Cranial nerves II-XII grossly intact. Motor strength 5/5 in all extremities. Sensory grossly intact. Psych: Awake, alert, with orientation to person, place and time. Behavior, mood, and affect are within normal limits. Vital Signs: 08:05 BP 126 / 76; Pulse 73; Resp 16; Temp 97.8; Pulse Ox 99% on R/A; ko1 08:30 BP 135 / 81; Pulse 56; Resp 16; Pulse Ox 99% ; ko1 09:00 BP 145 / 76; Pulse 50; Resp 18; Pulse Ox 98% ; ko1 09:30 BP 155 / 89; Pulse 62; Resp 16; Pulse Ox 100% on R/A; ko1 MDM: 08:03 Patient medically screened. bs3 08:19 Data reviewed: vital signs, nurses notes. ED course: Patient with chronic diarrhea bs3 possible dehydration we will check labs hydrate give food patient truly requires retirement and more assistance than I am unable to provide here, will rule out life-threatening emergencies will rule out anemia given her report of blood in the stool however no black stool here no prior blood per rectum. 09:23 ED course: Creatinine improved from prior no acute pathology patient provided food. No bs3 acute pathology advised outpatient follow-up. 01/22 08:15 Order name: CBC with Diff; Complete Time: 09:22 bs3 01/22 08:15 Order name: Comprehensive Metabolic Panel; Complete Time: 09:22 bs3 01/22 08:15 Order name: Diet Regular; Complete Time: 08:16 bs3 Administered Medications: 09:03 Drug: NS 0.9% IV 500 ml Route: IV; Rate: bolus; Site: right forearm; ko1 09:45 Follow up: Response: No adverse reaction; IV Intake: 500ml ko1 Disposition Summary: 01/22/23 09:25 Discharge Ordered Location: Unknown bs3 Condition: Fair bs3 Problem: an acute exacerbation bs3 Symptoms: have improved bs3 Diagnosis - Other malaise bs3 - chronic renal insufficiency bs3 Followup: bs3 - With: Private Physician - When: 1 week - Reason: Re-evaluation by your physician Discharge Instructions: - Discharge Summary Sheet bs3 - Fatigue bs3 - Weakness, Ckwp-do-Nxew bs3 Forms: - Medication Reconciliation Form bs3 - Thank You Letter bs3 - Antibiotic Education bs3 - Prescription Opioid Use bs3 Signatures: Dispatcher [employer] EDAtul Ferguson MD MD bs3 Darya Antonio, RN RN ko1
--- NOTE | 2023-01-22 09:26 | ER ---
Nurse's Notes [facility] Name: Arun Mccall Age: 77 yrs Sex: Male : 1945 Arrival Date: 01/22/2023 Time: 08:01 Bed 14 Private MD: Diagnosis: Other malaise;chronic renal insufficiency Presentation: 01/22 08:05 Chief complaint: EMS states: patient called for watery diarrhea and blood in stool. ko1 Patient showed EMS the toilet paper he wiped with and the stool was brown with a small streak of blood from possible hemorroid. No distress. Coronavirus screen: At this time, the client does not indicate any symptoms associated with coronavirus-19. Ebola Screen: No symptoms or risks identified at this time. Initial Sepsis Screen: Does the patient meet any 2 criteria? No. Patient's initial sepsis screen is negative. Does the patient have a suspected source of infection? No. Patient's initial sepsis screen is negative. Risk Assessment: Do you want to hurt yourself or someone else? Patient reports no desire to harm self or others. Onset of symptoms is unknown. 08:05 Method Of Arrival: EMS: [facility] ko1 08:05 Acuity: CHAYITO 3 ko1 Triage Assessment: 08:05 General: Appears in no apparent distress. comfortable, Behavior is calm, cooperative, ko1 appropriate for age. Pain: Denies pain. Historical: - Allergies: 09:18 fenofibrate nanocrystallized; ko1 09:18 insulin degludec; ko1 - PMHx: 09:18 Anxiety; Diabetes - IDDM; Diverticulitis; hemroids; Hypertension; ko1 - PSHx: 09:18 colon sx; ko1 - Immunization history:: Adult Immunizations unknown. - Social history:: Smoking status: Patient denies any tobacco usage or history of. Screenin:15 [facility] ED Fall Risk Assessment (Adult) History of falling in the last 3 months, ko1 including since admission No falls in past 3 months (0 pts) Confusion or Disorientation No (0 pts) Intoxicated or Sedated No (0 pts) Impaired Gait No (0 pts) Mobility Assist Device Used No (0 pt) Altered Elimination No (0 pt) Score/Fall Risk Level 0 - 2 = Low Risk Oriented to surroundings, Maintained a safe environment, Educated pt \T\ family on fall prevention, incl call for assistance when getting out of bed, Assessed \T\ reinforced patient's understanding of fall precautions, Provided non-skid footwear, Hourly rounding (assess needs \T\ fall precautionary measures) done, Used ambulatory aids as needed (educated on \T\ assisted with), Used gait belt as appropriate. Abuse screen: Denies threats or abuse. Denies injuries from another. Nutritional screening: No deficits noted. Tuberculosis screening: No symptoms or risk factors identified. Assessment: 08:15 Neuro: No deficits noted. Cardiovascular: No deficits noted. Respiratory: No deficits ko1 noted. GI: Reports diarrhea. : No deficits noted. EENT: No deficits noted. Derm: No deficits noted. Musculoskeletal: No deficits noted. Vital Signs: 08:05 BP 126 / 76; Pulse 73; Resp 16; Temp 97.8; Pulse Ox 99% on R/A; ko1 08:30 BP 135 / 81; Pulse 56; Resp 16; Pulse Ox 99% ; ko1 09:00 BP 145 / 76; Pulse 50; Resp 18; Pulse Ox 98% ; ko1 09:30 BP 155 / 89; Pulse 62; Resp 16; Pulse Ox 100% on R/A; ko1 ED Course: 08:02 Patient arrived in ED. ko1 08:03 Atul Martinez MD is Attending Physician. bs3 08:03 Robert Fregoso PA is PHCP. [facility] 08:05 Arm band placed on right wrist. 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 08:15 No provider procedures requiring assistance completed. ko1 08:15 Patient has correct armband on for positive identification. Bed in low position. Call ko1 light in reach. Side rails up X 1. Client placed on continuous cardiac and pulse oximetry monitoring. NIBP monitoring applied. finance controller on. Door closed. Noise minimized. Lights dimmed. Warm blanket given. 08:42 Initial lab(s) drawn, by me, sent to lab. Inserted saline lock: 20 gauge in right em1 forearm, using aseptic technique. Blood collected. Missed attempt(s): 20 gauge in right forearm. Bleeding controlled, band aid applied, catheter tip intact. 08:53 Darya Antonio, RN is Primary Nurse. ko1 09:18 Triage completed. ko1 09:42 IV discontinued, intact, bleeding controlled, No redness/swelling at site. Pressure ko1 dressing applied. Administered Medications: :03 Drug: NS 0.9% IV 500 ml Route: IV; Rate: bolus; Site: right forearm; ko1 09:45 Follow up: Response: No adverse reaction; IV Intake: 500ml ko1 Medication: :30 VIS not applicable for this client. ko1 Intake: :45 IV: 500ml; Total: 500ml. ko1 Outcome: :25 Discharge ordered by . bs3 09:42 Discharged to home via wheelchair. ko1 09:42 Condition: stable :42 Discharge instructions given to patient, Instructed on discharge instructions, follow up and referral plans. Demonstrated understanding of instructions, follow-up care. 10:05 Patient left the ED. ko1 Signatures: Robert Fregoso PA PA jmm Martinez, Eric em1 Atul Martinez MD MD bs3 Darya Antonio, RN RN ko1 Corrections: (The following items were deleted from the chart) 09:21 09:18 General: Appears in no apparent distress. comfortable, Behavior is calm, ko1 cooperative, appropriate for age, ko1 09:21 09:18 Pain: Denies pain. ko1 ko1
[2023-01-22 10:20] VITALS: TEMP 97.8
[2023-01-22 10:32] VITALS: BP 155/89; O2SAT 100
== END 2023-01-22 10:05 | disposition home or self-care (01) ==
LOC: ER 08:01
DX: R53.81 Other malaise (principal); E11.22 Type 2 diabetes mellitus with diabetic chronic kidney disease; I12.9 Hypertensive chronic kidney disease with stage 1 through stage 4 chronic kidney disease, or unspecified chronic kidney disease; N18.9 Chronic kidney disease, unspecified; Z88.8 Allergy status to other drugs, medicaments and biological substances; Z59.02 Unsheltered homelessness
CPT/HCPCS: 85025; 36415; 80053; J7040

== ENCOUNTER 2023-01-26 05:41 | Observation (INO) | payer OTHER ==
--- OUTSIDE RECORDS SUMMARY | 2023-01-26 05:45 | XMS REPORT | Continuity of Care Document ---
:1945 Author Organization [facility] t Address [address] 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 obesity Obesity 2-25 Family 00:00: Practic 00 e Generalize Generalize Problem Active [facility] d anxiety d Anxiety 2-25 Fami ly disorder Disorder 00:00: Practi c 00 e Essential Essential Problem Active Rosalio ada hypertensi Hypertensi 2-25 Fa rissa on on 00:00: Practic 00 e Chronic Chronic Problem Active [facility] kidney Kidney 2-25 Family disease Disease 00:00: Practic stage 3 Stage 3 00 e Obesity Obesity Disease Active Univers 9- ity of 00:00: [place] 00 Medical Branch Cataract Cataract Disease Active Overview: Un juanito 9-03 Formattin ity of 00:00: g of this [place] 00 note Medical might be Branch different from the original. 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 No Known Drug Active [facility] Tresiba Drug Active [facility] Social History Social Habit Start Date Stop Date Quantity Comments Source History of tobacco Cigarette Smoker University of use [facility] Alcohol intake 2022-02-07 2022-02-07 Current drinker Unive rsity of 00:00:00 00:00:00 of alcohol [facility] (finding) [place] Cigarettes smoked 2007-09-05 2007-09-05 Univers ity of current (pack per 00:00:00 00:00:00 [facility] ) - Reported Branch Cigarette 2007-09-05 2007-09-05 University of pack-years 00:00:00 00:00:00 [facility] Tobacco Comment 2006-08-03 2006-08-03 has quit off/on Univ ersity of 00:00:00 00:00:00 for up to 7 [facility] Alcohol Comment 2006-08-03 2006-08-03 0-2 drinks/month Uni versity of 00:00:00 00:00:00 [facility] Sex Ass[birth year] At [birth year] Universit y of 00:00:00 00:00:00 [facility] Smoking Status Start Date Stop Date Source Former Smoker [place] Family Aramis morrison Smokes tobacco daily 2007-09-05 00:00:[address] [facility] Medications Ordered Filled Start Stop Current Ordering Indication Dosage Frequency Signature Comments Components Source Medication Medication Date Date Medication? Clinician (SIG) Name Name meclizine 2022- No 25mg 25 mg, Unive rs (TRAVEL-EAS 01-15 Oral, ity of E 16:15: 20:25 ONCE, 1 [place] (MECLIZINE) 00 :00 dose, On Medi chidi ) tablet 25 Mon Branch mg 01/15/23 at 1115, MADI meclizine 2022-0 Yes [id number] 25mg Take 1 U nivers 25 mg 6-19 tablet by ity of tablet 00:00: mouth 3 [place] 00 (three) Medical times Branch daily as needed for Dizziness. meclizine 2022-0 Yes [id number] 25mg Take 1 U nivers 25 mg 6-19 tablet by ity of tablet 00:00: mouth 3 [place] 00 (three) Medical times Branch daily as needed for Dizziness. metFORMIN 2022-0 Yes [id number] 500mg Take 1 Univers 500 mg 6-06 tablet by ity of tablet 00:00: mouth in [place] 00 the Medical morning Branch and 1 tablet in the evening. hydrocortis 2022-0 Yes [id number] Insert Univers one 2.5 % 6-06 into ity of rectal 00:00: rectum 2 [place] cream 00 (two) Medical times Branch daily. metFORMIN 2022-0 Yes [id number] 500mg Take 1 Univers 500 mg 6-06 tablet by ity of tablet 00:00: mouth in [place] 00 the Medical morning Branch and 1 tablet in the evening. hydrocortis 2022-0 Yes [id number] Insert Univers one 2.5 % 6-06 into ity of rectal 00:00: rectum 2 [place] cream 00 (two) Medical times Branch daily. metFORMIN 2022-0 Yes [id number] 500mg Take 1 Univers 500 mg 6-06 tablet by ity of tablet 00:00: mouth in [place] 00 the Medical morning Branch and 1 tablet in the evening. hydrocortis 2022-0 Yes [id number] Insert Univers one 2.5 % 6-06 into ity of rectal 00:00: rectum 2 [place] cream 00 (two) Medical times Branch daily. docusate 2022-0 2022- Yes [id number] 100mg Take 1 U nivers (COLACE) 6-07 capsule by ity of 100 mg 00:00: 04:59 mouth in [place] capsule 00 :00 the Medical morning Branch for 30 days. omeprazole 2022-0 2022- Yes [id number] 40mg Take 1 Univers 40 mg 6- 07-07 capsule by ity of capsule 00:00: 04:59 mouth in [place] 00 :00 the Medical morning Branch for 30 days. docusate 2022-0 2022- Yes [id number] 100mg Take 1 U nivers (COLACE) 01-02- capsule by ity of 100 mg 00:00: 04:59 mouth in [place] capsule 00 :00 the Medical morning Branch for 30 days. omeprazole 2022- Yes [id number] 40mg Take 1 Univers 40 mg 01-02- capsule by ity of capsule 00:00: 04:59 mouth in [place] 00 :00 the Medical morning Branch for 30 days. docusate 2022- Yes [id number] 100mg Take 1 U nivers (COLACE) 01-02- capsule by ity of 100 mg 00:00: 04:59 mouth in [place] capsule 00 :00 the Medical morning Branch for 30 days. omeprazole 2022- Yes [id number] 40mg Take 1 Univers 40 mg 01-02- [...] N ORAL LIQD 2-28 ity of 09:25: [address] Branch MULTIVITAMI 2009-07 Yes one daily U nivers N ORAL LIQD 2-28 ity of 09:25: [address] MULTIVITAMI 2009-07 Yes one daily U nivers N ORAL LIQD 2-28 ity of 09:25: [address] FISH OIL 2009-07 Yes po bid Univers ORAL 2-28 ity of 09:25: [address] FISH OIL 2009-07 Yes po bid Univers ORAL 2-28 ity of 09:25: [address] FISH OIL 2009-07 Yes po bid Univers ORAL 2-28 ity of 09:25: [address] blood sugar Yes [id number] Un juanito diagnostic 8- ity of (CHEMSTRIP 00:00: [place] BG) strip 00 [facility] blood sugar Yes [id number] Un juanito diagnostic 8 ity of (CHEMSTRIP 00:00: [place] BG) strip 00 [facility] blood sugar Yes [id number] Un juanito diagnostic 8 ity of (CHEMSTRIP 00:00: [place] BG) strip 00 [facility] Asprin Ec Asprin Ec No 1 [...] Immunizations Ordered Filled Immunization Date Status Comments [facility] e Immunization Name Name Pneumococcal 2008-09-07 Completed [place] o f Polysaccharide, 00:00:[address] [facility] ical PPSV23 (PNEUMOVAX) Branch Pneumococcal 2008-09-07 Completed [place] o f Polysaccharide, 00:00:[address] [facility] ical PPSV23 (PNEUMOVAX) Branch Pneumococcal 2008-09-07 Completed [place] o f Polysaccharide, 00:00:[address] [facility] ical PPSV23 (PNEUMOVAX) [place] Influenza Virus 2007-05-31 Completed Universit y of Vaccine 00:00:00 [facility] Influenza Virus 2007-05-31 Completed Universit y of Vaccine 00:00:00 [facility] Influenza Virus 2007-05-31 Completed Universit y of Vaccine 00:00:00 [facility] Vital Signs Vital Name Observation Time Observation Value Comments Source Systolic blood 2023-01-16 20:00:00 160 mm[Hg] [facility] Diastolic blood 2023-01-16 20:00:00 74 mm[Hg] Unive [facility] Heart rate 2023-01-16 20:00:00 65 /min [facility] Body temperature 2023-01-16 20:00:00 36.33 Monse [facility] [place] [facility] Respiratory rate 2023-01-16 20:00:00 18 /min [facility] Oxygen saturation in 2023-01-16 20:00:00 98 /min [facility] Arterial blood by [facility] Pulse oximetry Branch Body weight 2023-01-16 14:47:00 90.719 kg [facility] BMI 2023-01-16 14:47:00 28.70 kg/m2 [facility] Systolic blood 2023-01-15 23:00:00 144 mm[Hg] Univer [facility] Diastolic blood 2023-01-15 23:00:00 87 mm[Hg] Unive rsity of pressure [place] [facility] Heart rate 2023-01-15 23:00:00 58 /min Universi ty of [place] [facility] Respiratory rate 2023-01-15 23:00:00 18 /min Univ ersity of [place] [facility] Oxygen saturation in 2023-01-15 23:00:00 99 /min University of Arterial blood by [place] Medi chidi Pulse oximetry Branch Body temperature 2023-01-15 14:34:00 36.67 Monse Univ ersity of [place] [facility] Body weight 2023-01-15 14:34:00 90.719 kg Universi ty of [place] [facility] BMI 2023-01-15 14:34:00 28.70 kg/m2 Universi ty of [place] [facility] Systolic blood 2023-01-02 19:00:00 139 mm[Hg] Univer sity of pressure [place] [facility] Diastolic blood 2023-01-02 19:00:00 80 mm[Hg] Unive rsity of pressure [place] [facility] Heart rate 2023-01-02 19:00:00 60 /min Universi ty of [place] [facility] Respiratory rate 2023-01-02 19:00:00 16 /min Univ ersity of [place] [facility] Oxygen saturation in 2023-01-02 19:00:00 99 /min University of Arterial blood by [facility] chidi Pulse oximetry Branch Body temperature 2023-01-02 15:48:00 36.72 Monse Univ ersity of [place] [facility] Body height 2023-01-02 15:48:00 177.8 cm Universi ty [facility] [place] [facility] Body weight 2023-01-02 15:48:00 113.399 kg Universi ty of [place] [facility] BMI 2023-01-02 15:48:00 35.87 kg/m2 Universi ty of [place] [facility] Height 2020-10-27 00:00:00 70 [in_i] [facility] BMI (Body Mass 2020-10-27 00:00:00 37.3 kg/m2 [facility] e Family Index) Practice Body Weight 2020-10-27 00:00:00 260 [lb_av] [facility] BP Diastolic 2020-09-23 00:00:00 86 mm[Hg] [facility] Height 2020-09-23 00:00:00 70 [in_i] [facility] BMI (Body Mass 2020-09-23 00:00:00 37.3 kg/m2 [facility] Family Index) Practice BP Systolic 2020-09-23 00:00:00 136 mm[Hg] [facility] Body Weight 2020-09-23 00:00:00 260 [lb_av] [facility] Height/Length 2021-08-16 11:09:21 177.80 cm Measured Weight Dosing 2021-08-16 11:09:21 108.86 kg Procedures Procedure Date / Time Performed Performing Clinician [facility] deo COMP. METABOLIC PANEL 2023-01-16 16:29:00 Sergio Groves [facility] ([id number]) [facility] CBC WITH DIFF 2023-01-16 16:00:00 Rei GrovesArleth [facility] TROPONIN I 2023-01-15 20:04:00 Leonardo Brown [facility] COMP. METABOLIC PANEL 2023-01-15 20:04:00 Leonardo Brown [facility] ([id number]) [facility] CBC WITH DIFF 2023-01-15 20:04:00 Leonardo Brown [facility] CT HEAD WO CONTRAST 2023-01-15 17:57:13 Leonardo Brown [facility] URINALYSIS 2023-01-02 17:22:00 José Clemons [facility] LIPASE 2023-01-02 16:51:00 [facility] COMP. METABOLIC PANEL 2023-01-02 16:51:00 [facility] ([id number]) [facility] CBC WITH DIFF 2023-01-02 16:51:00 Kaci [facility] Screening for [facility] Malignant Neoplasm of Practice Prostate Extraction of Cataract [facility] Practice Removal of Colon [facility] Encounters Start End Encounter Admission Attending Care Care Encounter Source Date/Time Date/Time Type Type Clinicians Facility Department ID 2023-01-16 2023-01-16 Emergency X SERGIO GROVES [facility] ERT 1 [id number] Univers 09:49:00 15:42:00 YANELI, REI-ARLETH ity of [facility] 2023-01-16 2023-01-16 Emergency Yaneli, TRAUMA [id number] Univers 09:49:00 15:42:[facility] [id number] [place] [id number] [address] 2023-01-15 2023-01-15 Emergency X MORRICAL, [facility] ERT [id number] Univers 09:35:00 19:31:[address] [facility] 2023-01-15 2023-01-15 Emergency Morrical, TRAUMA [id number] Univers 09:35:00 19:31:00 [facility] [id number] [place] [id number] [address] 2023-01-02 2023-01-02 Emergency X KACI, [facility] ERT [id number] Univers 10:42:00 14:44:[address] [facility] 2023-01-02 2023-01-[address] [facility] [id number] Univers 10:42:00 14:44:00 José ALTAMIRANORAVEN [id number] i ty [facility] 4.2.7.2.686 [facility] [id number] [place] [id number] Branch 2021-01-04 2021-01-04 Outpatient Miller_S_AH VFP VFP [id number] [facility] 03:27:00 03:27:00 [id number] Family Practic e 2020-11-10 2020-11-10 Outpatient Ajibade_O_A VFP VFP [id number] [facility] 06:52:00 06:52:00 H [id number] Family Practic e 2020-10-27 2020-10-27 Outpatient Ajibade_O_A VFP VFP [id number] 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 2020-03-25 2020-03-25 Outpatient Ajibade_O_A VFP VFP [id number] [place] 04:36:00 04:36:00 H 50393 Family Practic e 2020-03-25 2020-03-25 Outpatient Ajibade_O_A VFP VFP [id number] [facility] 04:36:00 04:36:00 H 68843 Family Practic e 2020-03-25 2020-03-25 Outpatient Ajibade_O_A VFP VFP [id number] [facility] 04:36:00 04:36:00 H 98705 Family Practic e 2020-03-25 2020-03-25 Outpatient Ajibade_O_A VFP VFP [phone] Village 04:36:00 04:36:00 H 95206 Family Practic e 2019-09-17 2019-09-17 Outpatient Ige-Odunuga VFP VFP [id number] [place] 07:13:00 07:13:00 _Maximus_MATTHEW [id number] Family Practic e 2019-09-17 2019-09-17 Outpatient Ige-Odunuga VFP VFP [phone] Village 07:13:00 07:13:00 _J_AH 13877 Family Practic e 2019-07-03 2019-07-08 Inpatient 1 Ivan Contreras [facility] PSY [id number] 10:34:00 13:25:00 Ivan Contreras [facility] Results Test Description Test Time Test Comments Results Result Comments Source TROPONIN I 2023-01-15 20:33:31 Test Item Value Reference Range Interpretation Comme nts TROPONIN I (test code = 0565490588) 0.007 ng/mL <=0.034 ROMINA (test code = RMOINA) Reference (Normal) Range (defined by the 99th [...] biotin. Lab Interpretation (test code = Normal 30703-0) [facility]. METABOLIC PANEL ([id number])2023-01-15 20:22:53 Test Item Value Reference Range Interpretation Comments NA (test code = 135 mmol/L 135-145 6780089813) K (test code = 5.4 mmol/L 3.5-5.0 H 6915956217) CL (test code = 106 mmol/L 98-108 6924184446) CO2 TOTAL (test code = 22 mmol/L 23-31 L 3400310323) AGAP (test code = 7 2-16 5741920300) BUN (test code = 23 mg/dL 7-23 1881895513) GLUCOSE (test code = 135 mg/dL 70-110 H 1762292609) CREATININE (test code = 2.05 mg/dL 0.60-1.25 H 0509031082) TOTAL BILI (test code = 0.5 mg/dL 0.1-1.4 6605075815) CALCIUM (test code = 8.6 mg/dL 8.6-10.6 3200212746) T PROTEIN (test code = 6.5 g/dL 6.3-8.2 2907571880) ALBUMIN (test code = 3.6 g/dL 3.5-5.0 7621369223) ALK PHOS (test code = 74 U/L 34-122 0417384017) ALTv (test code = 17 U/L 5-50 1742-6) AST(SGOT) (test code = 24 U/L 13-40 1143050018) eGFR (test code = 31.7 mL/min/1.73m2 6875533498) ROMINA (test code = ROMINA) Association of [...] tests). Lab Interpretation Abnormal (test code = 51393-9) [facility] WITH [id number] 20:13:15 Test Item Value Reference Range Interpretation Comments WBC (test code = 6.78 See_Comment [Automated message] 3390-2) The system [employer] generated this result transmitted ref erence range: 4.20 - 1 0.70 10*3/?L. The re ference range was not u sed to interpret this result as normal/abnor mal. RBC (test code = 4.48 See_Comment [Automated message] 789-8) The system [employer] generated this result transmitted ref erence range: [...] RDW-SD (test code 43.1 fL 38.5-51.6 = 57779-6) RDW-CV (test code 13.3 % 12.1-15.4 = 788-0) PLT (test code = 239 See_Comment [Automated message] 557-3) The system [employer] generated this result transmitted ref erence range: 150 - 32 8 10*3/?L. The re ference range was not u sed to interpret this result as normal/abnor mal. MPV (test code = 11.3 fL 9.8-13.0 35537-0) NRBC/100 WBC (test 0.0 See_Comment [Automat ed message] code = 0080881993) The [employer] which generated this result transmitted ref erence range: 0.0 - 10 .0 /100 WBCs. The refer ence range was not u sed to interpret this result as normal/abnor mal. NRBC x10^3 (test See_Comment [Automated message] code = 8766630982) The syste m which generated this result transmitted ref erence range: 10*3/?L. The reference range was not used to interpr et this result as normal/abnormal . GRAN MAT (NEUT) % 66.6 % (test code = 770-8) IMM GRAN % (test 0.40 % code = 6014281744) LYMPH % (test code 25.7 % = 736-9) MONO % (test code 5.9 % = 5905-5) EOS % (test code = 1.0 % 713-8) BASO % (test code 0.4 % = 706-2) GRAN MAT 4.51 10*3/uL 1.99-6.95 x10^3(ANC) (test code = 4665252715) IMM GRAN x10^3 0.03 10*3/uL 0.00-0.06 (test code = 0220321069) LYMPH x10^3 (test 1.74 10*3/uL 1.09-3.23 code = 731-0) MONO x10^3 (test 0.40 10*3/uL 0.36-1.02 code = 742-7) EOS x10^3 (test 0.07 10*3/uL 0.06-0.53 code = 711-2) BASO x10^3 (test 0.03 10*3/uL 0.01-0.09 code = 704-7) [facility] ([id number][facility]2023-01-02 18:18:34 Test Item Value Reference Range Interpretation Comments NA (test code = 136 mmol/L 135-145 4096407719) K (test code = 4.7 mmol/L 3.5-5.0 0973364799) CL (test code = 103 mmol/L 98-108 6086192513) CO2 TOTAL (test code = 18 mmol/L 23-31 L 9930113882) AGAP (test code = 15 2-16 4150062397) BUN (test code = 40 mg/dL 7-23 H 9378651865) GLUCOSE (test code = 154 mg/dL 70-110 H 3826349783) CREATININE (test code = 2.46 mg/dL 0.60-1.25 H 7707104890) TOTAL BILI (test code = 0.7 mg/dL 0.1-1.2 7495631356) CALCIUM (test code = 8.6 mg/dL 8.6-10.6 1594493763) T PROTEIN (test code = 6.3 g/dL 6.3-8.2 6617112572) ALBUMIN (test code = 3.7 g/dL 3.5-5.0 3740879331) ALK PHOS (test code = 77 U/L 34-122 8336746705) ALTv (test code = 15 U/L 5-50 1742-6) AST(SGOT) (test code = 23 U/L 13-40 5054129229) eGFR (test code = 25.7 mL/min/1.73m2 7921594484) ROMINA (test code = ROMINA) Association of [...] tests). Lab Interpretation Abnormal (test code = 06640-0) [facility] 18:18:34 Test Item Value Reference Range Interpretation Comments LIPASE (test code = 9576004620) 159 U/L 0-220 Lab Interpretation (test code = Normal 11061-0) [facility] WITH [id number] 18:00:33 Test Item Value Reference Range Interpretation [...] RDW-SD (test code = 43.6 fL 38.5-51.6 72098-1) RDW-CV (test code = 13.3 % 12.1-15.4 788-0) PLT (test code = 162 See_Comment [Automated 777-3) message] The sy stem which generated this result transmitted reference range : 150 - 328 10*3/ ?L. The reference r lesli was not used to interpret this result as normal/abnormal . MPV (test code = 12.7 fL 9.8-13.0 00028-9) NRBC/100 WBC (test 0.0 See_Comment [Automat ed code = 6215352817) message] The system which generated this result transmitted reference range : 0.0 - 10.0 /100 WBCs. The refer ence range was not u sed to interpret th is result as normal/abnormal . NRBC x10^3 (test code See_Comment [Auto mated = 5373085085) message] The s ystem which generated this result transmitted reference range : 10*3/?L. The reference range was not used to interpret this result as normal/abnormal . GRAN MAT (NEUT) % 75.0 % (test code = 770-8) IMM GRAN % (test code 0.60 % = 1265674206) LYMPH % (test code = 17.4 % 736-9) MONO % (test code = 6.0 % 5905-5) EOS % (test code = 0.6 % 713-8) BASO % (test code = 0.4 % 706-2) GRAN MAT x10^3(ANC) 5.35 10*3/uL 1.99-6.95 (test code = 1557439900) IMM GRAN x10^3 (test 0.04 10*3/uL 0.00-0.06 code = 6253136252) LYMPH x10^3 (test code 1.24 10*3/uL 1.09-3.23 = 731-0) MONO x10^3 (test code 0.43 10*3/uL 0.36-1.02 = 742-7) EOS x10^3 (test code = 0.04 10*3/uL 0.06-0.53 L 711-2) BASO x10^3 (test code 0.03 10*3/uL 0.01-0.09 = 704-7) Lab Interpretation Abnormal (test code = 58551-8) [facility] [id number] 10:41:53 Test Item Value Reference Range Interpretation Comments Glucose POC (test 140 mg/dL 70-115 H Notify RN or MDIf you code = Glucose POC) consider your patient critically ill, the Sj-Accu Chec k Infrom II meter should not be used for Glucos e determination. Draw a venous Glucose and send to the main Lab for analysis. POC [id number] 07:11:51 Test Item Value Reference Range Interpretation Comments Glucose POC (test 118 mg/dL 70-115 H Notify RN or MDIf you code = Glucose POC) consider your patient critically ill, the Sj-Accu Chec k Infrom II meter should not be used for Glucos e determination. Draw a venous Glucose and send to the main Lab for analysis. POC [id number] 19:44:19 Test Item Value Reference Range Interpretation Comments Glucose POC (test 151 mg/dL 70-115 H Notify RN or MDIf you code = Glucose POC) consider your patient critically ill, the Sj-Accu Chec k Infrom II meter should not be used for Glucos e determination. Draw a venous Glucose and send to the main Lab for analysis. POC [id number] 15:05:21 Test Item Value Reference Range Interpretation Comments Glucose POC (test 119 mg/dL 70-115 H Notify RN or MDIf you code = Glucose POC) consider your patient critically ill, the Sj-Accu Chec k Infrom II meter should not be used for Glucos e determination. Draw a venous Glucose and send to the main Lab for analysis. POC [id number] 11:16:17 Test Item Value Reference Range Interpretation Comments Glucose POC (test 132 mg/dL 70-115 H Notify RN or MDIf you code = Glucose POC) consider your patient critically ill, the Sj-Accu Chec k Infrom II meter should not be used for Glucos e determination. Draw a venous Glucose and send to the main Lab for analysis. POC [id number] 06:17:22 Test Item Value Reference Range Interpretation Comments Glucose POC (test 121 mg/dL 70-115 H Notify RN or MDIf you code = Glucose POC) consider your patient critically ill, the Sj-Accu Chec k Infrom II meter should not be used for Glucos e determination. Draw a venous Glucose and send to the main Lab for analysis. POC [id number] 20:10:13 Test Item Value Reference Range Interpretation Comments Glucose POC (test 133 mg/dL 70-115 H If you con radiotelegraph operator servicer your code = Glucose POC) patient critically ill, the Sj-Accu Check Infrom II meter should not be used for Glucose determination. Draw a venous Glucose and send to the main Lab for analysis. POC [id number] 06:13:49 Test Item Value Reference Range Interpretation Comments Glucose POC (test 116 mg/dL 70-115 H If you con radiotelegraph operator servicer your code = Glucose POC) patient critically ill, the Sj-Accu Check Infrom II meter should not be used for Glucose determination. Draw a venous Glucose and send to the main Lab for analysis. POC [id number] 19:55:46 Test Item Value Reference Range Interpretation Comments Glucose POC (test 121 mg/dL 70-115 H If you con radiotelegraph operator servicer your code = Glucose POC) patient critically ill, the Sj-Accu Check Infrom II meter should not be used for Glucose determination. Draw a venous Glucose and send to the main Lab for analysis. POC [id number] 16:21:40 Test Item Value Reference Range Interpretation Comments Glucose POC (test 126 mg/dL 70-115 H Notify RN or MDIf you code = Glucose POC) consider your patient critically ill, the Sj-Accu Chec k Infrom II meter should not be used for Glucos e determination. Draw a venous Glucose and send to the main Lab for analysis. POC [id number] 12:10:14 Test Item Value Reference Range Interpretation Comments Glucose POC (test 138 mg/dL 70-115 H Notify RN or MDIf you code = Glucose POC) consider your patient critically ill, the Sj-Accu Chec k Infrom II meter should not be used for Glucos e determination. Draw a venous Glucose and send to the main Lab for analysis. POC [id number] 06:38:10 Test Item Value Reference Range Interpretation Comments Glucose POC (test 112 mg/dL 70-115 If you con radiotelegraph operator servicer your code = Glucose POC) patient critically ill, the Sj-Accu Check Infrom II meter should not be used for Glucose determination. Draw a venous Glucose and send to the main Lab for analysis. POC [id number] 19:46:42 Test Item Value Reference Range Interpretation Comments Glucose POC (test 107 mg/dL 70-115 If you con radiotelegraph operator servicer your code = Glucose POC) patient critically ill, the Sj-Accu Check Infrom II meter should not be used for Glucose determination. Draw a venous Glucose and send to the main Lab for analysis. RPR [id number] 15:31:56 Test Item Value Reference Range Interpretation Comments RPR Qual (test code = RPR Qual) Non-Reactive Non-Reactive Reactive Control (test code = Reactive Reactive Control) Weak Reactive Control (test Weak Reactive code = Weak Reactive Control) Non-Reactive Control (test code Non-Reactive = Non-Reactive Control) Lot # (test code = Lot #) [id number] N Expiration Dt (test code = 05-29-20 N Expiration Dt) POC [id number] 15:06:05 Test Item Value Reference Range Interpretation Comments Glucose POC (test 118 mg/dL 70-115 H Notify RN or MDIf you code = Glucose POC) consider your patient critically ill, the Sj-Accu Chec k Infrom II meter should not be used for Glucos e determination. Draw a venous Glucose and send to the main Lab for analysis. POC [id number] 11:12:35 Test Item Value Reference Range Interpretation Comments Glucose POC (test 146 mg/dL 70-115 H If you con radiotelegraph operator servicer your code = Glucose POC) patient critically ill, the Sj-Accu Check Infrom II meter should not be used for Glucose determination. Draw a venous Glucose and send to the main Lab for analysis. POC [id number] 07:42:11 Test Item Value Reference Range Interpretation Comments Glucose POC (test 122 mg/dL 70-115 H If you con radiotelegraph operator servicer your code = Glucose POC) patient critically ill, the Sj-Accu Check Infrom II meter should not be used for Glucose determination. Draw a venous Glucose and send to the main Lab for analysis. POC [id number] 19:17:06 Test Item Value Reference Range Interpretation Comments Glucose POC (test 114 mg/dL 70-115 If you con radiotelegraph operator servicer your code = Glucose POC) patient critically ill, the Sj-Accu Check Infrom II meter should not be used for Glucose determination. Draw a venous Glucose and send to the main Lab for analysis. Urinalysis [id number] 12:27:32 Test Item Value Reference Range Interpretation Comments UA WBC (test code = UA WBC) 0-5 0-5 UA RBC (test code = UA RBC) 0-5 0-5 UA Squam Epithelial (test code = UA 0-5 Squam Epithelial) Comprehensive Metabolic [id number] 12:12:02 Test Item Value Reference Range Interpretation [...] A/G 1.6 ratio N Ratio) Comprehensive Metabolic [id number] 12:12:02 Test Item Value Reference Range Interpretation [...] National [employer] Foundation, http://nkdep.ni h.gov Comprehensive Metabolic [id number] 12:12:02 Test Item Value Reference Range Interpretation [...] National Kid[employer] Foundation, http://nkdep.ni h.gov Urine Drug [id number] 12:01:40 Test Item Value Reference Range Interpretation [...] if desired . Complete Blood Count with [id number] 11:38:14 Test Item Value Reference Range Interpretation [...] code = IPF) 0 % N Automated [id number] 11:38:14 Test Item Value Reference Range Interpretation Comments Neutro Auto (test code = Neutro 76.4 % 36.0-70.0 H Auto) Lymph Auto (test code = Lymph Auto) 15.8 % 12.0-44.0 [place] Auto (test code = [place] Auto) 6.7 % 0.0-11.0 Eos, Auto (test code = Eos, Auto) 0.3 % 0.0-7.0 Basophil Auto (test code = Basophil 0.4 % 0.0-2.0 Auto) Neutro Absolute (test code = Neutro 5.3 x10 1.6-7.4 Absolute) Lymph Absolute (test code = Lymph 1.09 x10 .50-4.60 Absolute) [place] Absolute (test code = [place] .46 x10 .00-1.20 Absolute) Eos Absolute (test code = Eos 0.02 x10 0.00-0.74 Absolute) Baso Absolute (test code = Baso 0.03 x10 0.00-0.21 Absolute) IG [id number] 11:38:14 Test Item Value Reference Range Interpretation Comments IG (test code = IG) 0.4 % 0.0-5.0 IG Abs (test code = IG Abs) 0 x10 N Urinalysis with Culture, if [id number] 11:37:19 Test Item Value Reference Range Interpretation [...] Micro Ind?) rule GL_SJM_UA_MICRO _IN D POC [id number] 11:07:06 Test Item Value Reference Range Interpretation Comments Glucose POC (test 123 mg/dL 70-115 H If you con radiotelegraph operator servicer your code = Glucose POC) patient critically ill, the Sj-Accu Check Infrom II meter should not be used for Glucose determination. Draw a venous Glucose and send to the main Lab for analysis."
[2023-01-26] MEDS ORDERED: DIPHENOX/ATROP SULF 1 TAB PO ONE (06:01)
[2023-01-26] MEDS ORDERED: HYDROCODONE/APAP 5/325 MG TAB ONE (06:29)
[2023-01-26] MEDS ORDERED: CYCLOBENZAPRINE 10 MG TAB ONE (06:29)
[2023-01-26] MEDS ORDERED: NA CHLORIDE 0.9% 1,000 ML ONE (06:30)
[2023-01-26] MEDS ORDERED: ONDANSETRON 4 MG (ODT) TAB ONE ×2 (06:30→06:31)
[2023-01-26 07:00] LABS: Absolute Lymphocytes (CBC) 1.4 K/uL (0.7-4.9); Hematocrit 36.3 % (39.6-49.0); Lymphocytes % 21.9 % (15.3-44.8); MCV 89.5 fL (80-100); MPV 10.2 fL (7.6-11.3); RBC Red Blood Cell Count 4.06 M/uL (4.33-5.43)
[2023-01-26 07:21] LABS: Albumin 3.2 g/dL (3.4-5.0); Bilirubin Direct 0.1 mg/dL (0-0.2); Bilirubin Indirect, Calculated 0.4 mg/dL (0.2-0.8); Bilirubin Total 0.5 mg/dL (0.2-1.0); Magnesium 2.1 mg/dL (1.6-2.4); Potassium 4.4 mEq/L (3.5-5.1); Protein, Total 6.9 g/dL (6.4-8.2); Troponin High Sensitivity 8.5 pg/mL (<58.9)
--- NOTE | 2023-01-26 07:58 | EDPHYS ---
Physician Documentation [facility] Name: Arun Mccall Age: 77 yrs Sex: Male : 1945 Arrival Date: 01/26/2023 Time: 05:41 Bed 6 Private MD: ED Physician Dick Park HPI: 01/26 05:42 This 77 yrs old Male presents to ER via Unassigned with complaints of sp4 diarrhea. 06:34 Patient is 77-year-old male with past medical history of chronic kidney disease CKD sp4 stage III, colitis, hemorrhoids, [id number]-[id number]-vdecghmnb diabetes mellitus, anxiety, hyperlipidemia, hypertension presents today with EMS for complaint of dizziness, diarrhea, fatigue and abdominal aches.. Patient was admitted here on 01/03/2023 and discharged on 01/09/2023. Patient was admitted for diarrhea, generalized abdominal pain, and rectal bleeding with hematochezia. Patient's also was at [facility] prior to that admission for similar symptoms. While admitted patient was managed for acute kidney insufficiency on chronic kidney disease, patient was given IV fluids and there was improvement in renal function. Patient had renal ultrasound on 01/08/2023 that was unremarkable without hydronephrosis. For patient's diffuse colitis with history of hemorrhoids patient was given Preparation H, his H\T\H was stable, general surgery recommended medical management, CT abdomen pelvis back then has revealed moderate retained stool in the rectosigmoid colon. Patient was discharged in improved condition on 01/09/2023. Home medications include Kaopectate, garlic, amlodipine, loperamide, metoprolol, phenylephrine Preparation H suppository, and simvastatin. . 06:38 Patient returned to the emergency room 01/22/2023 for symptoms of fatigue and malaise sp4 and diarrhea and was discharged out of the emergency room.. Historical: - Allergies: 05:46 fenofibrate nanocrystallized; kd3 05:46 insulin degludec; kd3 - PMHx: 05:46 Anxiety; Diabetes - IDDM; Diverticulitis; Hypertension; hemroids; kd3 - PSHx: 05:46 colon sx; kd3 - Immunization history:: Adult Immunizations. - Social history:: Smoking status: Patient/guardian denies using tobacco, but has a distant history of tobacco abuse. - Family history:: not pertinent. ROS: 06:38 Constitutional: Negative for fever, chills, and weight loss, positive fatigue and sp4 malaise Eyes: Negative for injury, pain, redness, and discharge, ENT: Negative for injury, pain, and discharge, Neck: Negative for injury, pain, and swelling, Cardiovascular: Negative for chest pain, palpitations, and edema, Respiratory: Negative for shortness of breath, cough, wheezing, and pleuritic chest pain, Abdomen/GI: Negative for nausea, vomiting, and constipation, positive for abdominal ache and diarrhea Back: Negative for injury and pain, : Negative for injury, bleeding, discharge, and swelling, MS/Extremity: Negative for injury and deformity, Skin: Negative for injury, rash, and discoloration, Neuro: Negative for headache, weakness, numbness, tingling, and seizure, Psych: Negative for depression, anxiety, Allergy/Immunology: Negative for hives, rash, and allergies Endocrine: Negative for neck swelling, polydipsia, polyuria, polyphagia, and weight changes Hematologic/Lymphatic: Negative for swollen nodes, abnormal bleeding, and unusual bruising Exam: 06:38 Constitutional: This is a well developed, well nourished patient who is awake, alert, sp4 nontoxic-appearing elderly male emotional upset on presentation, positive some degree of physical deconditioning Head/Face: Normocephalic, atraumatic. Eyes: Pupils equal round and reactive to light, extra-ocular motions intact. Lids and lashes normal. Conjunctiva and sclera are not injected. Cornea within normal limits. Periorbital areas with no swelling, redness, or edema. ENT: Nares patent. No nasal discharge, no septal abnormalities noted. Tympanic membranes are normal and external auditory canals are clear. Oropharynx with no redness, swelling, or masses, exudates, or evidence of obstruction, uvula midline. Mucous membranes moist. Neck: Trachea midline, no thyromegaly or masses palpated, and no cervical lymphadenopathy. Supple, full range of motion without nuchal rigidity, or vertebral point tenderness. Chest/axilla: Normal chest wall appearance and motion. Nontender with no deformity. No lesions are appreciated. Cardiovascular: Regular rate and rhythm with a normal S1 and S2. No gallops, murmurs, or rubs. Normal PMI, no JVD. No pulse deficits. Respiratory: Lungs have equal breath sounds bilaterally, clear to auscultation and percussion. No rales, rhonchi or wheezes noted. No increased work of breathing, no retractions or nasal flaring. Abdomen/GI: Soft, non-tender, with normal bowel sounds. No distension or tympany. No guarding or rebound. No evidence of tenderness throughout. Back: No spinal tenderness. No costovertebral tenderness. Skin: Warm, dry with normal turgor. Normal color with no rashes, no lesions, and no evidence of cellulitis. MS/ Extremity: Pulses equal, no cyanosis. Neurovascular intact. Full, normal range of motion. Neuro: Awake and alert, GCS 15, oriented to person, place, time, and situation. Cranial nerves II-XII grossly intact. Motor strength 5/5 in all extremities. Sensory grossly intact. Psych: Awake, alert, with orientation to person, place and time. Positive emotional upset and irritability 06:46 Abdomen/GI: Rectal exam: rectal tone normal, There is dark appearing to greenish stool sp4 in the rectal vault, no impaction, no fissures no fistulas, no maroon stool, no signs of melena or bright red blood. Vital Signs: 05:43 BP 122 / 76; Pulse 55; Resp 19; Temp 97.7(O); Pulse Ox 97% on R/A; Weight 28.35 kg; kd3 Height 5 ft. 10 in. ; 05:54 BP 118 / 70; Pulse 59; Resp 18; Pulse Ox 95% on R/A; kd3 08:00 BP 130 / 70; Pulse 56; Resp 19; Pulse Ox 96% ; hb 09:07 BP 116 / 59; Pulse 52; Resp 18; Pulse Ox 97% ; hb 09:25 BP 115 / 61; Pulse 51; Resp 18; Pulse Ox 96% on R/A; ld1 11:33 BP 145 / 69; Pulse 54; Resp 15; Pulse Ox 98% on R/A; hb 05:43 Body Mass Index 8.97 (28.35 kg, 177.8 cm) kd3 MDM: 06:07 Patient medically screened. sp4 07:43 Differential Diagnosis altered mental status, sepsis, flu. Data reviewed: vital signs, sp4 nurses notes. Data reviewed: EMS record, old medical records, lab test result(s), radiologic studies, CT scan. Consideration of Admission/Observation Patient was admitted/placed on observation. Escalation of care including admission/observation considered. Management of patient was discussed with the following: Hospitalist: Consulted Dr. Boswell for admission. ED course: Patient's labs reveal worsening kidney function with creatinine 2.4 slightly elevated lipase at 90 rectal exam reveals no active bleeding, hemoglobin today is okay at 12 point no CAT scan revealed no acute findings in abdomen or pelvis. Patient warrants admission for IV hydration. Also it seems that patient has no permanent place of residence he is residing in a hotel right now and social problems contribute to medication noncompliance. Will advise placement to snf for supportive environment. . 01/26 05:44 Order name: Basic Metabolic Panel; Complete Time: 07:34 sp4 01/26 05:44 Order name: CBC with Diff; Complete Time: 07:34 sp4 01/26 05:44 Order name: LFT's; Complete Time: 07:34 sp4 01/26 05:44 Order name: Magnesium; Complete Time: 07:34 sp4 01/26 05:44 Order name: NT PRO-BNP; Complete Time: 07:34 sp4 01/26 05:44 Order name: Troponin HS; Complete Time: 07:34 sp4 01/26 06:55 Order name: Lipase; Complete Time: 07:34 EDMS 01/26 05:44 Order name: XRAY Chest (1 view) sp4 01/26 06:08 Order name: CT Abd/Pelvis - Without Contrast sp4 01/26 05:44 Order name: EKG; Complete Time: 05:45 sp4 01/26 05:44 Order name: Cardiac monitoring; Complete Time: 08:03 sp4 01/26 05:44 Order name: EKG - Nurse/Tech; Complete Time: 05:50 sp4 01/26 05:44 Order name: IV Saline Lock; Complete Time: 07:23 sp4 01/26 05:44 Order name: Labs collected and sent; Complete Time: 07:23 sp4 01/26 05:44 Order name: O2 Per Protocol; Complete Time: 05:53 sp4 01/26 05:44 Order name: O2 Sat Monitoring; Complete Time: 05:53 sp4 Administered Medications: 05:58 Drug: Diphenoxylate-Atropine PO 2 tabs Route: PO; kd3 07:22 Drug: Ondansetron PO 4 mg Route: PO; kd3 07:23 Drug: HYDROcodone-acetaminophen PO 5 mg-325 mg 2 tabs Route: PO; kd3 07:23 Drug: NS 0.9% IV 1000 ml Route: IV; Rate: 125 ml/hr; Site: right antecubital; kd3 07:23 Drug: Cyclobenzaprine PO 10 mg Route: PO; kd3 Disposition Summary: 01/26/23 07:58 Hospitalization Ordered Hospitalization Status: Observation sp4 Provider: Kem Boswell Location: Telemetry/MedSurg (observation) sp4 Condition: Stable sp4 Problem: new sp4 Symptoms: have improved sp4 Bed/Room Type: Standard sp4 Room Assignment: 207(01/26/23 12:10) dw Diagnosis - Acute on chronic renal insufficiency, moderate dehydration, generalized fatigue, sp4 generalized weakness, physical deconditioning, diabetes mellitus type 2, persistent diarrhea Forms: - Medication Reconciliation Form sp4 - SBAR form sp4 Signatures: Dispatcher [employer] EDMS Lorie Saez, RN RN dw Radha Ratliff RN RN kd3 Dick Park MD MD sp4 Corrections: (The following items were deleted from the chart) 06:13 06:07 Abdomen Pelvis W Con+CT.RAD.BRZ ordered. EDMS EDMS 06:56 06:04 LIPASE+C.LAB.BRZ ordered. EDMS EDMS 12:10 07:58 sp4 dw
--- NOTE | 2023-01-26 07:58 | ER ---
Nurse's Notes [facility] Name: Arun Mccall Age: 77 yrs Sex: Male : 1945 Arrival Date: 01/26/2023 Time: 05:41 Bed 6 Private MD: Diagnosis: Acute on chronic renal insufficiency, moderate dehydration, generalized fatigue, generalized weakness, physical deconditioning, diabetes mellitus type 2, persistent diarrhea Presentation: 01/26 05:43 Chief complaint: EMS states: The patient called EMS because of shortness of breath and kd3 weakness with diarrhea. Pt has general feeling of being unwell. Pt was seen and discharged from this emergency room on the with the same symptoms and states that the medications he was prescribed arrent helping. Coronavirus screen: Vaccine status: Patient reports receiving the 1st dose of the Covid vaccine. Ebola Screen: No symptoms or risks identified at this time. Initial Sepsis Screen: Does the patient meet any 2 criteria? No. Patient's initial sepsis screen is negative. Does the patient have a suspected source of infection? No. Patient's initial sepsis screen is negative. Risk Assessment: Do you want to hurt yourself or someone else? Patient reports no desire to harm self or others. Onset of symptoms was January 26, 2023. 05:43 Method Of Arrival: EMS: [facility] kd3 05:43 Acuity: CHAYITO 3 kd3 Triage Assessment: 05:46 General: Appears uncomfortable, ill, Behavior is calm, cooperative. Pain: Denies pain. kd3 Neuro: Level of Consciousness is awake, alert, obeys commands, Oriented to person, place, time, situation. Cardiovascular: Patient's skin is warm and dry. Respiratory: Airway is patent Trachea midline Respiratory effort is even, unlabored, Respiratory pattern is regular, symmetrical. Respiratory: Breath sounds are clear in left upper lobe and left lower lobe Breath sounds are diminished in right middle lobe. Historical: - Allergies: 05:46 fenofibrate nanocrystallized; kd3 05:46 insulin degludec; kd3 - PMHx: 05:46 Anxiety; Diabetes - IDDM; Diverticulitis; Hypertension; hemroids; kd3 - PSHx: 05:46 colon sx; kd3 - Immunization history:: Adult Immunizations. - Social history:: Smoking status: Patient/guardian denies using tobacco, but has a distant history of tobacco abuse. - Family history:: not pertinent. Screenin:[facility] ED Fall Risk Assessment (Adult) History of falling in the last 3 months, kd3 including since admission No falls in past 3 months (0 pts) Confusion or Disorientation No (0 pts) Intoxicated or Sedated No (0 pts) Impaired Gait No (0 pts) Mobility Assist Device Used No (0 pt) Altered Elimination No (0 pt) Score/Fall Risk Level 0 - 2 = Low Risk Maintained a safe environment. Abuse screen: Denies threats or abuse. Denies injuries from another. Nutritional screening: No deficits noted. Tuberculosis screening: No symptoms or risk factors identified. Assessment: 05:54 General: Appears comfortable, ill, Behavior is calm, cooperative. Pain: Denies pain. kd3 Neuro: Level of Consciousness is awake, alert, obeys commands, Oriented to person, place, time, situation, Speech is normal, Facial symmetry appears normal. Cardiovascular: Patient's skin is warm and dry. Respiratory: Airway is patent Trachea midline Respiratory effort is even, unlabored, Respiratory pattern is regular, symmetrical, Breath sounds are diminished in right upper lobe and right middle lobe. GI: Reports diarrhea. 06:25 General: Appears comfortable, ill. kb3 06:25 Reassessment: Patient and/or family updated on plan of care and expected duration. Pain kb3 level reassessed. Patient is alert, oriented x 3, equal unlabored respirations, skin warm/dry/pink. Respiratory: Airway is patent Trachea midline Respiratory effort is even, unlabored, Respiratory pattern is regular, symmetrical. 08:00 Reassessment: Patient appears in no apparent distress at this time. No changes from hb previously documented assessment. Patient and/or family updated on plan of care and expected duration. Pain level reassessed. 09:07 Reassessment: Patient appears in no apparent distress at this time. Patient and/or hb family updated on plan of care and expected duration. Pain level reassessed. Patient is alert, oriented x 3, equal unlabored respirations, skin warm/dry/pink. 10:15 Reassessment: Patient appears in no apparent distress at this time. Patient and/or hb family updated on plan of care and expected duration. Pain level reassessed. Patient is alert, oriented x 3, equal unlabored respirations, skin warm/dry/pink. 11:33 Reassessment: Patient appears in no apparent distress at this time. Patient and/or hb family updated on plan of care and expected duration. Pain level reassessed. Patient is alert, oriented x 3, equal unlabored respirations, skin warm/dry/pink. Vital Signs: 05:43 BP 122 / 76; Pulse 55; Resp 19; Temp 97.7(O); Pulse Ox 97% on R/A; Weight 28.35 kg; kd3 Height 5 ft. 10 in. ; 05:54 BP 118 / 70; Pulse 59; Resp 18; Pulse Ox 95% on R/A; kd3 08:00 BP 130 / 70; Pulse 56; Resp 19; Pulse Ox 96% ; hb 09:07 BP 116 / 59; Pulse 52; Resp 18; Pulse Ox 97% ; hb 09:25 BP 115 / 61; Pulse 51; Resp 18; Pulse Ox 96% on R/A; ld1 11:33 BP 145 / 69; Pulse 54; Resp 15; Pulse Ox 98% on R/A; hb 05:43 Body Mass Index 8.97 (28.35 kg, 177.8 cm) kd3 ED Course: 05:42 Patient arrived in ED. rv1 05:42 Radha Ratliff RN is Primary Nurse. kd3 05:42 Dick Park MD is Attending Physician. sp4 05:46 Triage completed. kd3 05:46 Arm band placed on right wrist. kd3 05:50 Patient has correct armband on for positive identification. Client placed on continuous kd3 cardiac and pulse oximetry monitoring. NIBP monitoring applied. clinical research monitor on. 05:54 Warm blanket given. kd3 06:00 XRAY Chest (1 view) In Process Unspecified. EDMS 06:27 CT Abd/Pelvis - Without Contrast In Process Unspecified. EDMS 07:57 Kem Boswell is Hospitalizing Provider. sp4 08:25 Primary Nurse role handed off by Radha Ratliff RN eb 12:22 Inserted saline lock:. ld1 12:32 No provider procedures requiring assistance completed. Patient admitted, IV remains in ld1 place. Administered Medications: 05:58 Drug: Diphenoxylate-Atropine PO 2 tabs Route: PO; kd3 07:22 Drug: Ondansetron PO 4 mg Route: PO; kd3 07:23 Drug: HYDROcodone-acetaminophen PO 5 mg-325 mg 2 tabs Route: PO; kd3 07:23 Drug: NS 0.9% IV 1000 ml Route: IV; Rate: 125 ml/hr; Site: right antecubital; kd3 07:23 Drug: Cyclobenzaprine PO 10 mg Route: PO; kd3 Medication: 05:50 VIS not applicable for this client. kd3 Outcome: 07:58 Decision to Hospitalize by Provider. sp4 12:32 Admitted to Med/surg ld1 12:32 Condition: stable 12:32 Discharge instructions given to patient, Instructed on discharge instructions, follow up and referral plans. 12:32 Patient left the ED. ld1 Signatures: Dispatcher [employer] EDMS Dede Welch RN RN Rand Piña Lauren, RN RN ld1 Radha Ratliff RN RN kd3 Keila Trujillo RN RN kb3 Tammi Butt rv1 Dick Park MD MD sp4
--- NOTE | 2023-01-26 10:51 | P.HP ---
Certification for Inpatient Patient admitted to: Observation With expected LOS: <2 Midnights Practitioner: I am a practitioner with admitting privileges, knowledge of patient current condition, hospital course, and medical plan of care. Services: Services provided to patient in accordance with Admission requirements found in Title 42 Section 412.3 of the Code of Federal Regulations Patient History Date of Service: 01/26/23 Reason for admission: Generalized weakness and diarrhea History of Present Illness: 77-year-old gentleman with a known history of hypertension, diabetes and chronic kidney disease stage III presented to the emergency department with a complaint of diarrhea and generalized weakness. Patient reports several episodes of diarrhea yesterday. He states that the diarrhea is now easing off. Symptoms associated with abdominal pain. Work-up in the emergency department was unremarkable except mildly elevated creatinine above baseline. Patient started on IV fluid. ED physician called for patient to be observed overnight by the hospitalist. Patient stated he has tolerated his diet today. Allergies fenofibrate nanocrystallized [From Tricor] Allergy (Mild, Verified 11/29/22 20:51) Unknown insulin degludec [From Tresiba FlexTouch U-100] Adverse Reaction (Intermediate, Verified 11/29/22 20:51) Anaphylaxis Home Medications: Anxiety And Stress Relief 1 tab PO DAILY 11/29/22 Bismuth Subsalicylate [Kaopectate] 262 mg PO DAILY 11/29/22 Garlique 1 tab PO DAILY 11/29/22 Amlodipine [Norvasc*] 5 mg PO BID #60 tab 01/09/23 Loperamide [Imodium*] 2 mg PO Q4H PRN #20 cap 01/09/23 Metoprolol Tartrate 50 mg PO BID #60 tab 01/09/23 Phenylephrine HCl/[place] Butter [Preparation H Suppository] 1 each RC BID #30 supp.rect 01/09/23 Simvastatin 40 mg PO BEDTIME #30 tab 01/09/23 - Past Medical/Surgical History Diabetic: Yes -: DM II -: HTN -: CKD III with Proteinuria -: colon surgery - Family History Father -: Heart disease - Social History Alcohol use: No CD- Drugs: No Caffeine use: Yes Review of Systems Other: He denied any fever. He endorsed fatigue. He denied any chest pain. He denied any vomiting. Except as documented, all other systems reviewed and negative. Physical Examination - Physical Exam General: Alert, In no apparent distress, Oriented x3 HEENT: Mucous membr. moist/pink Neck: Supple, JVD not distended Respiratory: Clear to auscultation bilaterally, Normal air movement Cardiovascular: No edema, Regular rate/rhythm, Normal S1 S2 Capillary refill: <2 Seconds Gastrointestinal: Normal bowel sounds, Soft and benign, Non-distended, No tenderness Musculoskeletal: No swelling, No tenderness Integumentary: No rashes, No cyanosis Neurological: Normal speech, Normal strength at 5/5 x4 extr, Cranial nerves 3-12 intact Lymphatics: No axilla or inguinal lymphadenopathy - Studies Laboratory Data (last 24 hrs) 01/26/23 06:43: WBC 6.60, Hgb 12.0 L, Hct 36.3 L, Plt Count 193 01/26/23 06:43: Sodium 137, Potassium 4.4, BUN 47 H, Creatinine 2.40 H, Glucose 154 H, Magnesium 2.1, Total Bilirubin 0.5, AST 21, ALT 22, Alkaline Phosphatase 70, Lipase 90 H 01/26/23 06:04: Lipase Cancelled Assessment and Plan - Problems (Diagnosis) (1) Chronic kidney disease, stage III (moderate) Current Visit: Yes Status: Acute (2) Acute gastroenteritis Current Visit: Yes Status: Acute (3) Abdominal pain Current Visit: No Status: Acute (4) Diabetes mellitus type 2 in obese Current Visit: No Status: Acute (5) Hypertension Current Visit: No Status: Acute - Plan Place patient under observation. Hydrate with IV normal saline. Serum creatinine slightly elevated. Monitor renal function for improvement. Insulin sliding scale for glucose management. Patient is currently normotensive. Hold antihypertensives. Possible discharge in a.m. Social service consult to assess patient's social situation. - Advance Directives Does patient have a Living Will: No Does patient have a Durable POA for Healthcare: No Time Spent Managing Pts Care (In Minutes): 64
--- NOTE | 2023-01-26 11:28 | RAD REPORT ---
EXAM DESCRIPTION: CT - Abdomen Pelvis Wo Contrast - 01/26/2023 7:11 am CLINICAL HISTORY: The patient is 77 years old and is Male; ABD PAIN TECHNIQUE: Axial computed tomography images of the abdomen and pelvis without intravenous contrast. Sagittal and coronal reformatted images were created and reviewed. This CT exam was performed usi ng one or more of the following dose reduction techniques: automated exposure control, adjustment o f the mA and/or kV according to patient size, and/or use of iterative reconstruction technique. COMPARISON: CT abdomen and pelvis with contrast January 03, 2023. FINDINGS: Lung bases: Unremarkable. No mass. No consolidation. ABDOMEN: Liver: Unremarkable. Gallbladder and bile ducts: Unremarkable. No calcified stones. No ductal dilation. Pancreas: Unremarkable. No ductal dilation. Spleen: Unremarkable. No splenomegaly. Adrenals: Possible 3.9 cm right adrenal myelolipoma. Kidneys and ureters: Bilateral renal atrophy. Simple cysts in the kidneys. No follow-up imaging is recommended. Mild bilateral perinephric stranding. No obstructing stones. No hydronephrosis. Stomach and bowel: Small 2 cm periumbilical hernia containing a short segment of bowel, similar t o prior. No evidence of obstruction. Small 3.5 cm right paracentral ventral hernia containing a short segment of bowel, similar to prior. No evidence of obstruction. No mucosal thickening. PELVIS: Appendix: No findings to suggest acute appendicitis. Bladder: Unremarkable. Reproductive: Unremarkable as visualized. ABDOMEN and PELVIS: Intraperitoneal space: Postsurgical changes in the abdomen. No free air. No significant fluid collection. Bones/joints: Disc space narrowing with degenerative endplate changes in the spine. No acute fracture. No dislocation. Soft tissues: See above. Vasculature: Extensive atherosclerotic vascular calcifications. No abdominal aortic aneurysm. Lymph nodes: Unremarkable. No enlarged lymph nodes. Other findings: Elevation of the left hemidiaphragm. IMPRESSION: No acute finding in the abdomen/pelvis. Electronically signed by: Michael Gant MD 01/26/2023 7:02 AM CDT Due to temporary technical issues with the PACS/Fluency reporting system, reports are being signed by the in house radiologist without review as a courtesy to ensure prompt reporting. The interpreting r adiologist is fully responsible for the content of the report.
--- NOTE | 2023-01-26 11:54 | RAD REPORT ---
EXAM DESCRIPTION: RAD - Chest Single View - 01/26/2023 5:58 am CLINICAL HISTORY: The patient is 77 years old and is Male; CHEST PAIN TECHNIQUE: Frontal view of the chest. COMPARISON: No relevant prior studies available. FINDINGS: Lungs: Unremarkable. No consolidation. Pleural space: Blunting of the left costophrenic angle which may indicate left pleural effusion. No pneumothorax. Heart: Unremarkable. Mediastinum: Unremarkable. Bones/joints: Unremarkable. Upper abdomen: Elevation of the left hemidiaphragm. IMPRESSION: Blunting of the left costophrenic angle which may indicate left pleural effusion. Electronically signed by: Michael Gant MD 01/26/2023 6:23 AM CDT Due to temporary technical issues with the PACS/Fluency reporting system, reports are being signed by the in house radiologist without review as a courtesy to ensure prompt reporting. The interpreting r adiologist is fully responsible for the content of the report.
[2023-01-26 12:50] VITALS: O2SAT 98
[2023-01-26] MEDS: NA CHLORIDE 0.9% 1,000 ML IV SCH ×3 (13:26→23:26)
[2023-01-26] MEDS ORDERED: ACETAMINOPHEN 500 MG TAB PO PRN (13:26)
[2023-01-26] MEDS ORDERED: ONDANSETRON 4 MG/2 ML VIAL IV PRN (13:26)
[2023-01-26] MEDS ORDERED: D10W 250 ML BAG IV PRN (17:05)
[2023-01-26] MEDS ORDERED: GLUCAGON 1 MG/VIAL IM PRN (17:05)
[2023-01-26] MEDS: HEPARIN 5000 UNIT/ML 1 ML VIAL SQ SCH (18:12)
[2023-01-26] MEDS: INSULIN -REGULAR HUMAN 50 UNIT/0.5 ML ML SQ SCH (19:34)
[2023-01-26 22:20] LABS: Specific Gravity 1.017 (1.005-1.030); Urine Bacteria None Seen /HPF (<20); Urine Bilirubin NEGATIVE (Negative); Urine Blood Negative (Negative); Urine Clarity Turbid (Clear); Urine Color Light-Yellow (Yellow); Urine Glucose 1+ (Negative); Urine Mucus Slight /HPF (None Seen); Urine Protein 3+ (Negative); Urine RBC None Seen /HPF (None Seen); Urine Urobilinogen Normal (Normal); Urine pH 5.5 (5.0-7.0)
[2023-01-27] MEDS: HEPARIN 5000 UNIT/ML 1 ML VIAL SQ SCH ×2 (00:15→08:20)
[2023-01-27 06:16] LABS: Absolute Lymphocytes (CBC) 2.1 K/uL (0.7-4.9); Lymphocytes % 36.1 % (15.3-44.8); MCV 90.1 fL (80-100); MPV 10.4 fL (7.6-11.3); RBC Red Blood Cell Count 3.66 M/uL (4.33-5.43)
[2023-01-27 06:43] LABS: Magnesium 2.1 mg/dL (1.6-2.4); Phosphorus 3.3 mg/dL (2.5-4.9); Potassium 4.5 mEq/L (3.5-5.1); Thyroid Stimulating Hormone 1.17 uIU/mL (0.358-3.740)
[2023-01-27] MEDS: INSULIN -REGULAR HUMAN 50 UNIT/0.5 ML ML SQ SCH ×2 (07:30→11:30)
--- NOTE | 2023-01-27 11:13 | P.DS ---
Admission Date: 01/26/23 Discharge Date: 01/27/23 Disposition: ROUTINE DISCHARGE Discharge Condition: FAIR Reason for Admission: Generalized weakness and diarrhea - Problems (1) Chronic kidney disease, stage III (moderate) Current Visit: Yes Status: Acute (2) Acute gastroenteritis Current Visit: Yes Status: Acute (3) Abdominal pain Current Visit: No Status: Acute (4) Diabetes mellitus type 2 in obese Current Visit: No Status: Acute (5) Hypertension Current Visit: No Status: Acute Brief History of Present Illness: 77-year-old gentleman with a known history of hypertension, diabetes and chronic kidney disease stage III presented to the emergency department with a complaint of diarrhea and generalized weakness. Patient reports several episodes of diarrhea yesterday. He states that the diarrhea is now easing off. Symptoms associated with abdominal pain. Work-up in the emergency department was unremarkable except mildly elevated creatinine above baseline. Patient started on IV fluid. ED physician called for patient to be observed overnight by the hospitalist. Patient stated he has tolerated his diet today. Hospital Course: Patient placed under observation on medical floor and hydrated with IV fluid. Serum creatinine trended down and at baseline. Patient had diarrhea which he reported has stopped. He reports only 1 bowel movement since morning. Patient tolerated diet and had good oral intake. He is currently asymptomatic. Vitals are stable. Vital Signs/Physical Exam: Temp Pulse Resp BP Pulse Ox 97.9 F 64 18 125/72 100 01/27/23 08:00 01/27/23 08:00 01/27/23 08:00 01/27/23 08:00 01/27/23 08:00 General: Alert, In no apparent distress, Oriented x3 HEENT: Mucous membr. moist/pink Neck: Supple, JVD not distended Respiratory: Clear to auscultation bilaterally, Normal air movement Cardiovascular: No edema, Regular rate/rhythm, Normal S1 S2 Gastrointestinal: Normal bowel sounds, Soft and benign, Non-distended, No tenderness Musculoskeletal: No swelling Integumentary: No erythema, No cyanosis Neurological: Normal speech, Normal strength at 5/5 x4 extr, Cranial nerves 3-12 intact Laboratory Data at Discharge: WBC 5.80 thou/uL (4.3-10.9) 01/27/23 05:47 Hgb 10.5 g/dL (13.6-17.9) L D 01/27/23 05:47 Hct 33.0 % (39.6-49.0) L 01/27/23 05:47 Plt Count 169 thou/uL (152-406) 01/27/23 05:47 Sodium 137 mEq/L (136-145) 01/27/23 05:47 Potassium 4.5 mEq/L (3.5-5.1) 01/27/23 05:47 BUN 46 mg/dL (7-18) H 01/27/23 05:47 Creatinine 2.30 mg/dL (0.70-1.30) H 01/27/23 05:47 Glucose 141 mg/dL (74-106) H 01/27/23 05:47 Phosphorus 3.3 mg/dL (2.5-4.9) 01/27/23 05:47 Magnesium 2.1 mg/dL (1.6-2.4) 01/27/23 05:47 Total Bilirubin 0.5 mg/dL (0.2-1.0) 01/26/23 06:43 AST 21 U/L (15-37) 01/26/23 06:43 ALT 22 U/L (16-61) 01/26/23 06:43 Alkaline Phosphatase 70 U/L (45-117) 01/26/23 06:43 Lipase 90 U/L (13-75) H 01/26/23 06:43 Home Medications: Anxiety And Stress Relief 1 tab PO DAILY 11/29/22 Bismuth Subsalicylate [Kaopectate] 262 mg PO DAILY 11/29/22 Garlique 1 tab PO DAILY 11/29/22 Loperamide [Imodium*] 2 mg PO Q4H PRN #20 cap 01/09/23 Metoprolol Tartrate 50 mg PO BID #60 tab 01/09/23 Phenylephrine HCl/[place] Butter [Preparation H Suppository] 1 each RC BID #30 supp.rect 01/09/23 Simvastatin 40 mg PO BEDTIME #30 tab 01/09/23 Diet: AHA Activity: Fall precautions Time spent managing pt's care (in minutes): 27
[2023-01-27 12:37] VITALS: BP 159/77; TEMP 97.5
== END 2023-01-27 14:43 | disposition home or self-care (01) ==
LOC: ER 05:41 → ERHOLD 10:48 → 2ND 12:25
PROVIDERS: ADMIT Internal Medicine; ATTEND Internal Medicine
DX: K52.9 Noninfective gastroenteritis and colitis, unspecified (principal); R53.1 Weakness; R19.7 Diarrhea, unspecified; E11.22 Type 2 diabetes mellitus with diabetic chronic kidney disease; I12.9 Hypertensive chronic kidney disease with stage 1 through stage 4 chronic kidney disease, or unspecified chronic kidney disease; N18.30 Chronic kidney disease, stage 3 unspecified; R10.9 Unspecified abdominal pain; E66.9 Obesity, unspecified; Z88.8 Allergy status to other drugs, medicaments and biological substances
CPT/HCPCS: 85025 ×2; 81001; 80048 ×2; 36415 ×2; 83735 ×2; 84100; 82947 ×3; 80076; 84443; 84484; 83690; 83880; 74176; 71045; 99285; J1644 ×3; Q0162 ×2; J7030 ×3; G0378

== ENCOUNTER 2023-11-15 23:04 | Observation (INO) | payer OTHER ==
--- OUTSIDE RECORDS SUMMARY | 2023-11-15 23:08 | XMS REPORT | Continuity of Care Document ---
Author Name Unknown Address [address] [facility] [place] [address] [facility] Address [address] [facility] [place] [address] Care Team Providers Care Calcine Furnace Tender Name Role Phone JOSE TREVINO Primary Care Physician Unavailab Leatha Rodríguez Attending Clinician [phone] SERGIO GROVES Attending Clinician Unavailable SERGIO GROVES Attending Clinician Unavailable Sergio Groves DO Attending Clinician [phone] LEONARDO BROWN Attending Clinician UnavailLeonardo Magana MD Attending Clinician [phone] JOSÉ CLEMONS Attending Clinician Unavailable José Nicole Attending Clinician Taylor Attending Clinician Unavailable Foreign_Nancy_MATTHEW Attending Clinician Unavailable Ige-Odunfernando_J_MATTHEW Attending Clinician Unavailable Ivan Contreras Attending Clinician Unavailable Ivan Contreras Attending Clinician Unavailable LEONARDO BROWN Admitting Clinician Unavailbony Vazquez Admitting Clinician Unavailable Tisha_MATTHEW Admitting Clinician Unavailable IgeAmador_Maximus_MATTHEW Admitting Clinician Unavailable Ivan Contreras Admitting Clinician Unavailable Payers Payer Name Policy Type Policy Number Effective Date Expirati on Date Source [place] [place] PREMIUM [place] [id number] 2022 00:00:00 [employer] [place]MEDICARE REPLACEMENT/ADVANT AGE - HMO) [id number] 5313-01-01 00:00:00 Problems Condition Name Condition Details Condition Category Status Onset Date Resolution Date Last Treatment Date Treating Clinician Comments Source Senile purpura Senile Purpura Problem Active 10-27 00:00: 00 [facility] Noncomplia nce with treatment Noncomplia nce with Treatment Problem Active 10-27 00:00: 00 [facility] 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 Multiple Complicati ons Due to Type 2 Diabetes Mellitus Problem Active 10-25 00:00: 00 [facility] Diabetes mellitus Diabetes Mellitus Problem Active 09-23 00:00: 00 [facility] Hyperlipid emia Hyperlipid emia Problem Active 09-23 00:00: 00 [facility] Morbid obesity Morbid Obesity Problem Active 09-23 00:00: 00 [facility] Generalize d anxiety disorder Generalize d Anxiety Disorder Problem Active 09-23 00:00: 00 [facility] Essential hypertensi on Essential Hypertensi on Problem Active 09-23 00:00: 00 [facility] Chronic kidney disease stage 3 Chronic Kidney Disease Stage 3 Problem Active 09-23 00:00: 00 [facility] Obesity Obesity Disease Active 04-19 00:00: 00 [facility] Cataract Cataract Disease Active 04-01 00:00: 00 Overview: Formattin g of this note might be different from the original. ICD10 Diagnosis Term General Practitioner Utility [facility] Personal history of tobacco use, presenting hazards to health Personal history of tobacco use, presenting hazards to health Disease Active 2006-07 00:00: 00 [facility] Type 2 diabetes mellitus without complicati ons Type 2 diabetes mellitus without complicati ons Disease Active 01-31 00:00: 00 Overview: Formattin g of this note might be different from the original. ICD10 Diagnosis Term General Practitioner Utility [facility] Essential hypertensi on Essential hypertensi on Disease Active 01-31 00:00: 00 Overview: Formattin g of this note might be different from the original. ICD10 Diagnosis Term General Practitioner Utility [facility] HLD (hyperlipi demia) HLD (hyperlipi demia) Disease Active 01-31 00:00: 00 Overview: Formattin g of this note might be different from the original. ICD10 Diagnosis Term General Practitioner Utility [facility] Allergies, Adverse Reactions, Alerts Allergy Name Allergy Type Status Severity Reaction(s) Onset Date Inactive Date Treating Clinician Comments Source No Known Allergie s Drug Active [facility] Tresiba Drug Active [facility] NO KNOWN ALLERGIE S Drug Class Active [facility] Social History Social Habit Start Date Stop Date Quantity Comments Source History of tobacco use Cigarette Smoker [facility] Alcohol intake 2022-02-07 00:00:00 2022-02-07 00:00:00 Current drinker of alcohol (finding) [facility] Cigarettes smoked current (pack per day) - Reported 2007-09-05 00:00:00 2007-09-05 00:00:00 [facility] Cigarette pack-years 2007-09-05 00:00:00 2007-09-05 00:00:00 [facility] Tobacco Comment 2006-08-03 00:00:00 2006-08-03 00:00:00 has quit off/on for up to 7 years [facility] Alcohol Comment 2006-08-03 00:00:00 2006-08-03 00:00:00 0-2 drinks/month [facility] Sex Ass[birth year] At 1945 00:00:00 1945 00:00:00 [facility] Smoking Status Start Date Stop Date Source Former Smoker [facility] Smokes tobacco daily 2007-09-05 00:00:00 [facility] Medications Ordered Medication Name Filled Medication Name Start Date Stop Date Current Medication? Ordering Clinician Indication Dosage Frequency Signature (SIG) Comments Components Source meclizine (TRAVEL-EAS E (MECLIZINE) ) tablet 25 mg 01-15 16:15: 00 01-15 20:25 :00 No 25mg 25 mg, Oral, ONCE, 1 dose, On Sun01/15/23 at 1115, MADI [facility] meclizine 25 mg tablet 01-15 00:00: 00 Yes [id number] 25mg Take 1 tablet by mouth 3 (three) times daily as needed for Dizziness. [facility] metFORMIN 500 mg tablet 01-02 00:00: 00 Yes [id number] 500mg Take 1 tablet by mouth in the morning and 1 tablet in the evening. [facility] hydrocortis one 2.5 % rectal cream 01-02 00:00: 00 Yes [id number] Insert into rectum 2 (two) times daily. [facility] docusate (COLACE) 100 mg capsule 01-02 00:00: 00 02-02 04:59 :00 No [id number] 100mg Take 1 capsule by mouth in the morning for 30 days. [facility] omeprazole 40 mg capsule 01-02 00:00: 00 02-02 04:59 :00 No [id number] 40mg Take 1 capsule by mouth in the morning for 30 days. [facility] prednisoLON E acetate (PRED-FORTE ) 1 % ophthalmic suspension drops 10-27 00:00: 00 Yes 1[drp] Place 1 Drop in right eye 4 (four) times daily. [facility] diclofenac (VOLTAREN) 0.1 % ophthalmic solution 10-27 00:00: 00 Yes 1[drp] Place 1 Drop in right eye 4 (four) times daily. [facility] ciprofloxac in HCl (CILOXAN) 0.3 % opthalmic drops 10-27 00:00: 00 Yes 1[drp] Place 1 Drop in right eye 4 (four) times daily. [facility] LANTUS SOLOSTAR 100 unit/mL (3 mL) InPn 10-13 00:00: 00 Yes [facility] MULTIVITAMI N ORAL LIQD 2009-07 09:25: 45 Yes one daily [facility] FISH OIL ORAL 2009-07 09:25: 43 Yes po bid [facility] blood sugar diagnostic (CHEMSTRIP BG) strip 03-01 00:00: 00 Yes [id number] [facility] Asprin Ec Low Dose 81 mg tablet,juan yed release Take 1 tablet every day by oral route. Asprin Ec Low Dose 81 mg tablet,juan yed release Take 1 tablet every day by oral route. No 1 Q1D Asprin Ec Low Dose 81 mg tablet,del ayed release Take 1 tablet every day by oral route. [facility] hydroxyzine HCl 25 mg tablet Take 2 tablets every 12 hours by oral route as needed for 30 days. hydroxyzine HCl 25 mg tablet Take 2 tablets every 12 hours by oral route as needed for 30 days. No 2 Q12H hydroxyzin e HCl 25 mg tablet Take 2 tablets every 12 hours by oral route as needed for 30 days. [facility] Levemir FlexTouch U-100 Insulin 100 unit/mL (3 mL) subcutaneou s pen Inject 55 units every day by subcutaneou s route as directed for 30 days. 55 units in the morning and 35 units at night. Levemir FlexTouch U-100 Insulin 100 unit/mL (3 mL) subcutaneou s pen Inject 55 units every day by subcutaneou s route as directed for 30 days. 55 units in the morning and 35 units at night. No 55unit( s) Q1D Levemir FlexTouch U-100 Insulin 100 unit/mL (3 mL) subcutaneo us pen Inject 55 units every day by subcutaneo us route as directed for 30 days. 55 units in the morning and 35 units at night. [facility] metoprolol tartrate 50 mg tablet Take 1 tablet twice a day by oral route as directed for 30 days. metoprolol tartrate 50 mg tablet Take 1 tablet twice a day by oral route as directed for 30 days. No 1 BID metoprolol tartrate 50 mg tablet Take 1 tablet twice a day by oral route as directed for 30 days. [facility] Vital Signs Vital Name Observation Time Observation Value Comments Emy mack Systolic blood pressure 2023-01-16 20:00:00 160 mm[Hg] [facility] Diastolic blood pressure 2023-01-16 20:00:00 74 mm[Hg] [facility] Heart rate 2023-01-16 20:00:00 65 /min [facility] Body temperature 2023-01-16 20:00:00 36.33 Monse [facility] Respiratory rate 2023-01-16 20:00:00 18 /min [facility] Oxygen saturation in Arterial blood by Pulse oximetry 2023-01-16 20:00:00 98 /min [facility] Body weight 2023-01-16 14:47:00 90.719 kg [facility] BMI 2023-01-16 14:47:00 28.70 kg/m2 [facility] Systolic blood pressure 2023-01-15 23:00:00 144 mm[Hg] [facility] Diastolic blood pressure 2023-01-15 23:00:00 87 mm[Hg] [facility] Heart rate 2023-01-15 23:00:00 58 /min [facility] Respiratory rate 2023-01-15 23:00:00 18 /min [facility] Oxygen saturation in Arterial blood by Pulse oximetry 2023-01-15 23:00:00 99 /min [facility] Body temperature 2023-01-15 14:34:00 36.67 Monse [facility] Body weight 2023-01-15 14:34:00 90.719 kg [facility] BMI 2023-01-15 14:34:00 28.70 kg/m2 [facility] Systolic blood pressure 2023-01-02 19:00:00 139 mm[Hg] [facility] Diastolic blood pressure 2023-01-02 19:00:00 80 mm[Hg] [facility] Heart rate 2023-01-02 19:00:00 60 /min [facility] Respiratory rate 2023-01-02 19:00:00 16 /min [facility] Oxygen saturation in Arterial blood by Pulse oximetry 2023-01-02 19:00:00 99 /min [facility] Body temperature 2023-01-02 15:48:00 36.72 Monse [facility] Body height 2023-01-02 15:48:00 177.8 cm [facility] Body weight 2023-01-02 15:48:00 113.399 kg [facility] BMI 2023-01-02 15:48:00 35.87 kg/m2 [facility] Height 2020-10-27 00:00:00 70 [in_i] [facility] BMI (Body Mass Index) 2020-10-27 00:00:00 37.3 kg/m2 [facility] Body Weight 2020-10-27 00:00:00 260 [lb_av] [facility] BP Diastolic 2020-09-23 00:00:00 86 mm[Hg] [facility] Height 2020-09-23 00:00:00 70 [in_i] [facility] BMI (Body Mass Index) 2020-09-23 00:00:00 37.3 kg/m2 [facility] BP Systolic 2020-09-23 00:00:00 136 mm[Hg] [facility] Body Weight 2020-09-23 00:00:00 260 [lb_av] [facility] Height/Length Measured 2021-08-16 11:09:21 177.80 cm Weight Dosing 2021-08-16 11:09:21 108.86 kg Procedures Procedure Date / Time Performed Performing Clinicia n Source COMP. METABOLIC PANEL ([id number]) 2023-01-16 16:29:00 Sergio Groves [facility] CBC WITH DIFF 2023-01-16 16:00:00 Sergio Groves [facility] TROPONIN I 2023-01-15 20:04:00 Leonardo Brown [facility] COMP. METABOLIC PANEL ([id number]) 2023-01-15 20:04:00 Leonardo Brown [facility] CBC WITH DIFF 2023-01-15 20:04:00 Leonardo Brown [facility] CT HEAD WO CONTRAST 2023-01-15 17:57:13 Mike Brown [facility] URINALYSIS 2023-01-02 17:22:00 [facility] LIPASE 2023-01-02 16:51:00 WillardJosé myrick [facility] COMP. METABOLIC PANEL (49213) 2023-01-02 16:51:00 José Clemons [facility] CBC WITH DIFF 2023-01-02 16:51:00 José Clemons [facility] Screening for Malignant Neoplasm of Prostate [facility] Extraction of Cataract [place] [facility] Encounters Start Date/Time End Date/Time Encounter Type Admission Type Attending Clinicians Care Facility Care Department Encounter ID Source 2023-10-25 14:30:00 2023-10-25 15:30:00 Initial D2Me Salli Fulminar [id number] [facility] 2023-01-16 09:49:00 2023-01-16 15:42:00 Emergency X YANELI PRIYANKSERGIO MEEHAN [facility] ERT [id number] [facility] 2023-01-16 09:49:00 2023-01-16 15:42:00 Emergency Sergio Groves [facility] [id number] [facility] 2023-01-15 09:35:00 2023-01-15 19:31:00 Emergency X LEONARDO BROWN [facility] ERT [id number] [facility] 2023-01-15 09:35:00 2023-01-15 19:31:00 Emergency Leonardo Brown [facility] [id number] [facility] 2023-01-02 10:42:00 2023-01-02 14:44:00 Emergency X JOSÉ CLEMONS [facility] ERT [id number] [facility] 2023-01-02 10:42:00 2023-01-02 14:44:00 Emergency José Clemons [facility] [id number] [facility] 2021-01-04 03:27:00 2021-01-04 03:27:00 Outpatient Miller_S_AH VFP VFP [id number] [facility] 2020-11-10 06:52:00 2020-11-10 06:52:00 Outpatient Ajibade_O_A H VFP VFP [id number] [facility] 2020-10-27 01:51:00 2020-10-27 01:51:00 Outpatient Ajibade_O_A H VFP VFP [id number] [facility] 2020-10-27 00:00:00 2020-10-27 00:00:00 Arleth Carrasquillo, FLEXBOARD OPERATOR: [address], [address] [facility] [place] [phone] , Ph. VFP [place] - [facility] - [email or web address]_ [email or web address] Direct [id number] [facility] 2020-10-21 08:40:00 2020-10-21 08:40:00 Outpatient Ajibade_O_A H VFP VFP [id number] [facility] 2020-09-23 04:30:00 2020-09-23 04:30:00 Outpatient Ajibade_O_A H VFP VFP [id number] [facility] 2020-09-23 00:00:00 2020-09-23 00:00:00 Arleth Carrasquillo, FLEXBOARD OPERATOR: [address], [address], [place] [address] , Ph. VFP [place] - [facility] - [email or web address]_ [place] Direct [id number] [facility] 2020-03-25 04:36:00 2020-03-25 04:36:00 Outpatient Ajibade_O_A H VFP VFP [id number] [facility] 2020-03-25 04:36:00 2020-03-25 04:36:00 Outpatient Ajibade_O_A H VFP VFP [id number] [facility] 2020-03-25 04:36:00 2020-03-25 04:36:00 Outpatient Ajibade_O_A H VFP VFP [id number] [facility] 2020-03-25 04:36:00 2020-03-25 04:36:00 Outpatient Ajibade_O_A H VFP VFP [id number] [facility] 2019-09-17 07:13:00 2019-09-17 07:13:00 Outpatient Ige-Odunuga _J_AH VFP VFP [id number] [facility] 2019-09-17 07:13:00 2019-09-17 07:13:00 Outpatient Ige-Odunuga _J_AH VFP VFP [id number] [facility] 2019-07-03 10:34:00 2019-07-08 13:25:00 Inpatient 1 Ivan Contreras Shakeel [facility] PSY [id number] [facility] Results Test Description Test Time Test Comments Results Result Co mments Source [facility]. METABOLIC PANEL ([id number])2023-01-15 20:22:53* Test Item Value Reference Range Interpretation Comme nts NA (test code = 4233620351) 135 mmol/L 135-145 K (test code = 5793118248) 5.4 mmol/L 3.5-5.0 H CL (test code = 8030130494) 106 mmol/L 98-108 CO2 TOTAL (test code = 8020408080) 22 mmol/L 23-31 L AGAP (test code = 1706413615) 7 2-16 BUN (test code = 7990395305) 23 mg/dL 7-23 GLUCOSE (test code = 1391188232) 135 mg/dL 70-110 H CREATININE (test code = 1339096967) 2.05 mg/dL 0.60-1.25 H TOTAL BILI (test code = 0611004975) 0.5 mg/dL 0.1-1.1 CALCIUM (test code = 2863022364) 8.6 mg/dL 8.6-10.6 T PROTEIN (test code = 3817003386) 6.5 g/dL 6.3-8.2 ALBUMIN (test code = 7472366955) 3.6 g/dL 3.5-5.0 ALK PHOS (test code = 0063841954) 74 U/L 34-122 ALTv (test code = 1742-6) 17 U/L 5-50 AST(SGOT) (test code = 9956661086) 24 U/L 13-40 eGFR (test code = 0770509998) 31.7 mL/min/1.73m2 ROMINA (test code = ROMINA) Association [...] imaging tests). Lab Interpretation (test code = 51011-9) Abnormal [facility] WITH [id number] 20:13:15* Test Item Value Reference Range Interpretation Comme nts WBC (test code = 6690-2) 6.78 See_Comment [Automated messa ge] The system which generated this result transmitted reference range: 4.20 - 10.70 10*3/?L. The reference range was not used to interpret this result as normal/abnormal. RBC (test code = 789-8) 4.48 See_Comment [Automated messa ge] The system which generated this result transmitted reference range: 4.26 - 5.52 10*6/?L. The reference range was not used to interpret this result as normal/abnormal. HGB (test code = 718-7) 13.1 g/dL 12.2-16.4 HCT (test code = 4544-3) 39.9 % 38.4-49.3 MCV (test code = 787-2) 89.1 fL 81.7-95.6 MCH (test code = 785-6) 29.2 pg 26.1-32.7 MCHC (test code = 786-4) 32.8 g/dL 31.2-35.0 RDW-SD (test code = 92985-3) 43.1 fL 38.5-51.6 RDW-CV (test code = 788-0) 13.3 % 12.1-15.4 PLT (test code = 777-3) 239 See_Comment [Automated Humedicsa ge] The system which generated this result transmitted reference range: 150 - 328 10*3/?L. The reference range was not used to interpret this result as normal/abnormal. MPV (test code = 79362-9) 11.3 fL 9.8-13.0 NRBC/100 WBC (test code = 3167499363) 0.0 See_Comment [Automated me ssage] The system which generated this result transmitted reference range: 0.0 - 10.0 /100 WBCs. The reference range was not used to interpret this result as normal/abnormal. NRBC x10^3 (test code = 0444426993) See_Comment [Automated me ssage] The system which generated this result transmitted reference range: 10*3/?L. The reference range was not used to interpret this result as normal/abnormal. GRAN MAT (NEUT) % (test code = 770-8) 66.6 % IMM GRAN % (test code = 2261262950) 0.40 % LYMPH % (test code = 736-9) 25.7 % MONO % (test code = 5905-5) 5.9 % EOS % (test code = 713-8) 1.0 % BASO % (test code = 706-2) 0.4 % GRAN MAT x10^3(ANC) (test code = 6373372534) 4.51 10*3/uL 1.99-6.95 IMM GRAN x10^3 (test code = 0520415466) 0.03 10*3/uL 0.00-0.06 LYMPH x10^3 (test code = 731-0) 1.74 10*3/uL 1.09-3.23 MONO x10^3 (test code = 742-7) 0.40 10*3/uL 0.36-1.02 EOS x10^3 (test code = 711-2) 0.07 10*3/uL 0.06-0.53 BASO x10^3 (test code = 704-7) 0.03 10*3/uL 0.01-0.09 [facility]84[facility] 18:18:34* Test Item Value Reference Range Interpretation Comme nts NA (test code = 2598088583) 136 mmol/L 135-145 K (test code = 9391170845) 4.7 mmol/L 3.5-5.0 CL (test code = 6334579600) 103 mmol/L 98-108 CO2 TOTAL (test code = 3575651409) 18 mmol/L 23-31 L AGAP (test code = 3730404354) 15 2-16 BUN (test code = 2406849552) 40 mg/dL 7-23 H GLUCOSE (test code = 9602718899) 154 mg/dL 70-110 H CREATININE (test code = 8553821967) 2.46 mg/dL 0.60-1.25 H TOTAL BILI (test code = 8478962125) 0.7 mg/dL 0.1-1.1 CALCIUM (test code = 5357630744) 8.6 mg/dL 8.6-10.6 T PROTEIN (test code = 6883440917) 6.3 g/dL 6.3-8.2 ALBUMIN (test code = 0391746574) 3.7 g/dL 3.5-5.0 ALK PHOS (test code = 2646688763) 77 U/L 34-122 ALTv (test code = 1742-6) 15 U/L 5-50 AST(SGOT) (test code = 9875055503) 23 U/L 13-40 eGFR (test code = 1111257434) 25.7 mL/min/1.73m2 ROMINA (test code = ROMINA) [...] imaging tests). Lab Interpretation (test code = 84930-0) [facility]:18:[facility]* Test Item Value Reference Range Interpretation Comme nts LIPASE (test code = 8700179256) 159 U/L 0-220 Lab Interpretation (test cod e = 44700-8) Normal [facility] WITH [id number] 18:00:33* Test Item Value Reference Range Interpretation Comme nts WBC (test code = 6690-2) 7.13 See_Comment [Automated messa ge] The system which generated this result transmitted reference range: 4.20 - 10.70 10*3/?L. The reference range was not used to interpret this result as normal/abnormal. RBC (test code = 789-8) 4.37 See_Comment [Automated messa ge] The system which generated this result transmitted reference range: 4.26 - 5.52 10*6/?L. The reference range was not used to interpret this result as normal/abnormal. HGB (test code = 718-7) 13.1 g/dL 12.2-16.4 HCT (test code = 4544-3) 38.9 % 38.4-49.3 MCV (test code = 787-2) 89.0 fL 81.7-95.6 MCH (test code = 785-6) 30.0 pg 26.1-32.7 MCHC (test code = 786-4) 33.7 g/dL 31.2-35.0 RDW-SD (test code = 39984-6) 43.6 fL 38.5-51.6 RDW-CV (test code = 788-0) 13.3 % 12.1-15.4 PLT (test code = 777-3) 162 See_Comment [Automated messa ge] The system which generated this result transmitted reference range: 150 - 328 10*3/?L. The reference range was not used to interpret this result as normal/abnormal. MPV (test code = 22405-0) 12.7 fL 9.8-13.0 NRBC/100 WBC (test code = 3515916161) 0.0 See_Comment [Automated 4moms ssage] The system which generated this result transmitted reference range: 0.0 - 10.0 /100 WBCs. The reference range was not used to interpret this result as normal/abnormal. NRBC x10^3 (test code = 9738400677) See_Comment [Automated messa ge] The system which generated this result transmitted reference range: 10*3/?L. The reference range was not used to interpret this result as normal/abnormal. GRAN MAT (NEUT) % (test code = 770-8) 75.0 % IMM GRAN % (test code = 9998807911) 0.60 % LYMPH % (test code = 736-9) 17.4 % MONO % (test code = 5905-5) 6.0 % EOS % (test code = 713-8) 0.6 % BASO % (test code = 706-2) 0.4 % GRAN MAT x10^3(ANC) (test code = 5978073262) 5.35 10*3/uL 1.99-6.95 IMM GRAN x10^3 (test code = 4348954044) 0.04 10*3/uL 0.00-0.06 LYMPH x10^3 (test code = 731-0) 1.24 10*3/uL 1.09-3.23 MONO x10^3 (test code = 742-7) 0.43 10*3/uL 0.36-1.02 EOS x10^3 (test code = 711-2) 0.04 10*3/uL 0.06-0.53 L BASO x10^3 (test code = 704-7) 0.03 10*3/uL 0.01-0.09 Lab Interpretation (test code = 02940-4) Abnormal [facility] [id number] 10:41:53* Test Item Value Reference Range Interpretation Comme nts Glucose POC (test code = Glucose POC) 140 mg/dL 70-115 H Notify RN or MDIf you consider your patient critically ill, the Sj-Accu Check Infrom II meter should not be used for Glucose determination. Draw a venous Glucose and send to the main Lab for analysis. POC [id number] 07:11:51* Test Item Value Reference Range Interpretation Comme nts Glucose POC (test code = Glucose POC) 118 mg/dL 70-115 H Notify RN or MDIf you consider your patient critically ill, the Sj-Accu Check Infrom II meter should not be used for Glucose determination. Draw a venous Glucose and send to the main Lab for analysis. POC [id number] 19:44:19* Test Item Value Reference Range Interpretation Comme nts Glucose POC (test code = Glucose POC) 151 mg/dL 70-115 H Notify RN or MDIf you consider your patient critically ill, the Sj-Accu Check Infrom II meter should not be used for Glucose determination. Draw a venous Glucose and send to the main Lab for analysis. POC [id number] 15:05:21* Test Item Value Reference Range Interpretation Comme nts Glucose POC (test code = Glucose POC) 119 mg/dL 70-115 H Notify RN or MDIf you consider your patient critically ill, the Sj-Accu Check Infrom II meter should not be used for Glucose determination. Draw a venous Glucose and send to the main Lab for analysis. POC [id number] 11:16:17* Test Item Value Reference Range Interpretation Comme nts Glucose POC (test code = Glucose POC) 132 mg/dL 70-115 H Notify RN or MDIf you consider your patient critically ill, the Sj-Accu Check Infrom II meter should not be used for Glucose determination. Draw a venous Glucose and send to the main Lab for analysis. POC [id number] 06:17:22* Test Item Value Reference Range Interpretation Comme nts Glucose POC (test code = Glucose POC) 121 mg/dL 70-115 H Notify RN or MDIf you consider your patient critically ill, the Sj-Accu Check Infrom II meter should not be used for Glucose determination. Draw a venous Glucose and send to the main Lab for analysis. POC [id number] 20:10:13* Test Item Value Reference Range Interpretation Comme nts Glucose POC (test code = Glucose POC) 133 mg/dL 70-115 H If you consi eve your patient critically ill, the Sj-Accu Check Infrom II meter should not be used for Glucose determination. Draw a venous Glucose and send to the main Lab for analysis. POC [id number] 06:13:49* Test Item Value Reference Range Interpretation Comme nts Glucose POC (test code = Glucose POC) 116 mg/dL 70-115 H If you consi eve your patient critically ill, the Sj-Accu Check Infrom II meter should not be used for Glucose determination. Draw a venous Glucose and send to the main Lab for analysis. POC [id number] 19:55:46* Test Item Value Reference Range Interpretation Comme nts Glucose POC (test code = Glucose POC) 121 mg/dL 70-115 H If you consi eve your patient critically ill, the Sj-Accu Check Infrom II meter should not be used for Glucose determination. Draw a venous Glucose and send to the main Lab for analysis. POC [id number] 16:21:40* Test Item Value Reference Range Interpretation Comme nts Glucose POC (test code = Glucose POC) 126 mg/dL 70-115 H Notify RN or MDIf you consider your patient critically ill, the Sj-Accu Check Infrom II meter should not be used for Glucose determination. Draw a venous Glucose and send to the main Lab for analysis. POC [id number] 12:10:14* Test Item Value Reference Range Interpretation Comme nts Glucose POC (test code = Glucose POC) 138 mg/dL 70-115 H Notify RN or MDIf you consider your patient critically ill, the Sj-Accu Check Infrom II meter should not be used for Glucose determination. Draw a venous Glucose and send to the main Lab for analysis. POC [id number] 06:38:10* Test Item Value Reference Range Interpretation Comme nts Glucose POC (test code = Glucose POC) 112 mg/dL 70-115 If you consi eve your patient critically ill, the Sj-Accu Check Infrom II meter should not be used for Glucose determination. Draw a venous Glucose and send to the main Lab for analysis. POC [id number] 19:46:42* Test Item Value Reference Range Interpretation Comme nts Glucose POC (test code = Glucose POC) 107 mg/dL 70-115 If you consi eve your patient critically ill, the Sj-Accu Check Infrom II meter should not be used for Glucose determination. Draw a venous Glucose and send to the main Lab for analysis. RPR [id number] 15:31:56* Test Item Value Reference Range Interpretation Comme nts RPR Qual (test code = RPR Qual) Non-Reactive Non-Reactive Reactive Control (test code = Reactive Control) Reactive Weak Reactive Control (test code = Weak Reactive Control) Weak Reactive Non-Reactive Control (test c ode = Non-Reactive Control) Non-Reactive Lot # (test code = Lot #) [id number] Expiration Dt (test code = Expiration Dt) 05-29-20 N POC [id number] 15:06:05* Test Item Value Reference Range Interpretation Comme nts Glucose POC (test code = Glucose POC) 118 mg/dL 70-115 H Notify RN or MDIf you consider your patient critically ill, the Sj-Accu Check Infrom II meter should not be used for Glucose determination. Draw a venous Glucose and send to the main Lab for analysis. POC [id number] 11:12:35* Test Item Value Reference Range Interpretation Comme nts Glucose POC (test code = Glucose POC) 146 mg/dL 70-115 H If you consi eve your patient critically ill, the Sj-Accu Check Infrom II meter should not be used for Glucose determination. Draw a venous Glucose and send to the main Lab for analysis. POC [id number] 07:42:11* Test Item Value Reference Range Interpretation Comme nts Glucose POC (test code = Glucose POC) 122 mg/dL 70-115 H If you consi eve your patient critically ill, the Sj-Accu Check Infrom II meter should not be used for Glucose determination. Draw a venous Glucose and send to the main Lab for analysis. POC [id number] 19:17:06* Test Item Value Reference Range Interpretation Comme nts Glucose POC (test code = Glucose POC) 114 mg/dL 70-115 If you consi eve your patient critically ill, the Sj-Accu Check Infrom II meter should not be used for Glucose determination. Draw a venous Glucose and send to the main Lab for analysis. Urinalysis [id number] 12:27:32* Test Item Value Reference Range Interpretation Comme nts UA WBC (test code = UA WBC) 0-5 0-5 UA RBC (test code = UA RBC) 0-5 0-5 UA Squam Epithelial (test co de = UA Squam Epithelial) 0-5 Comprehensive Metabolic [id number] 12:12:02* Test Item Value Reference Range Interpretation Comme nts Sodium Level (test code = So dium Level) 138.0 mmol/L 135.0-145.0 Potassium Level (test code = Potassium Level) 4.2 mmol/L 3.5-5.1 Chloride Level (test code = Chloride Level) 101 mmol/L 98-105 CO2 (test code = CO2) 21 mmol/L 22-29 L Anion Gap (test code = Anion Gap) 16 mmol/L 7-16 BUN (test code = BUN) 21.60 mg/dL 8.00-23.00 Creatinine Level (test code = Creatinine Level) 1.40 mg/dL 0.70-1.20 H BUN/Creat Ratio (test code = BUN/Creat Ratio) 15 N Glucose Level (test code = Glucose Level) 139 mg/dL 70-115 H Calcium Level (test code = Calcium Level) 9.2 mg/dL 8.3-10.5 Alk Phos (test code = Alk Phos) 73 U/L 40-129 Bilirubin Total (test code = Bilirubin Total) 0.6 mg/dL 0.1-0.9 Albumin Level (test code = Albumin Level) 4.1 g/dL 3.5-5.2 Protein Total (test code = Protein Total) 6.7 g/dL 6.4-8.3 ALT (test code = ALT) 18 U/L 1-41 AST (test code = AST) 25 U/L 1-40 Globulin (test code = Globulin) 2.6 g/dL 2.9-3.1 L A/G Ratio (test code = A/G Ratio) 1.6 ratio N Comprehensive Metabolic [id number] 12:12:02* Test Item Value Reference Range Interpretation Comme nts Sodium Level (test code = Sodium Level) 138.0 mmol/L 135.0-145.0 Potassium Level (test code = Potassium Level) 4.2 mmol/L 3.5-5.1 Chloride Level (test code = Chloride Level) 101 mmol/L 98-105 CO2 (test code = CO2) 21 mmol/L 22-29 L Anion Gap (test code = Anion Gap) 16 mmol/L 7-16 BUN (test code = BUN) 21.60 mg/dL 8.00-23.00 Creatinine Level (test code = Creatinine Level) 1.40 mg/dL 0.70-1.20 H BUN/Creat Ratio (test code = BUN/Creat Ratio) 15 N Glucose Level (test code = Glucose Level) 139 mg/dL 70-115 H Calcium Level (test code = Calcium Level) 9.2 mg/dL 8.3-10.5 Alk Phos (test code = Alk Phos) 73 U/L 40-129 Bilirubin Total (test code = Bilirubin Total) 0.6 mg/dL 0.1-0.9 Albumin Level (test code = Albumin Level) 4.1 g/dL 3.5-5.2 Protein Total (test code = Protein Total) 6.7 g/dL 6.4-8.3 ALT (test code = ALT) 18 U/L 1-41 AST (test code = AST) 25 U/L 1-40 Globulin (test code = Globulin) 2.6 g/dL 2.9-3.1 L A/G Ratio (test code = A/G Ratio) 1.6 ratio N eGFR AA (test code = eGFR AA) 60 mL/min/1.73 m2 N eGFR (estimated Glomerular Filtration Rate) is an estimated value, calculated from the patient's serum creatinine using the MDRD equation. It is NOT the patient's actual GFR. The eGFR provides a more clinically useful measure of kidney disease than serum creatinine alone.This calculation takes sex and race into account, if the information is provided. If the race is not provided, and the patient is -[place], multiply by 1.212. If sex is not provided, and the patient is female, multiply by 0.742. Results for patients <18 years of age have not been validated by the MDRD study and should be interpreted with caution. eGFR Result Interpretation:eGFR > or = 60 is in the Normal RangeeGFR < 60 may mean kidney diseaseeGFR < 15 may mean kidney failure Ranges recommended by the National Kidney Foundation, http://nkdep.nih.gov Comprehensive Metabolic [id number] 12:12:02* Test Item Value Reference Range Interpretation Comme nts Sodium Level (test code = Sodium Level) 138.0 mmol/L 135.0-145.0 Potassium Level (test code = Potassium Level) 4.2 mmol/L 3.5-5.1 Chloride Level (test code = Chloride Level) 101 mmol/L 98-105 CO2 (test code = CO2) 21 mmol/L 22-29 L Anion Gap (test code = Anion Gap) 16 mmol/L 7-16 BUN (test code = BUN) 21.60 mg/dL 8.00-23.00 Creatinine Level (test code = Creatinine Level) 1.40 mg/dL 0.70-1.20 H BUN/Creat Ratio (test code = BUN/Creat Ratio) 15 N Glucose Level (test code = Glucose Level) 139 mg/dL 70-115 H Calcium Level (test code = Calcium Level) 9.2 mg/dL 8.3-10.5 Alk Phos (test code = Alk Phos) 73 U/L 40-129 Bilirubin Total (test code = Bilirubin Total) 0.6 mg/dL 0.1-0.9 Albumin Level (test code = Albumin Level) 4.1 g/dL 3.5-5.2 Protein Total (test code = Protein Total) 6.7 g/dL 6.4-8.3 ALT (test code = ALT) 18 U/L 1-41 AST (test code = AST) 25 U/L 1-40 Globulin (test code = Globulin) 2.6 g/dL 2.9-3.1 L A/G Ratio (test code = A/G Ratio) 1.6 ratio N eGFR AA (test code = eGFR AA) 60 mL/min/1.73 m2 N eGFR (estimated Glomerular Filtration Rate) is an estimated value, calculated from the patient's serum creatinine using the MDRD equation. It is NOT the patient's actual GFR. The eGFR provides a more clinically useful measure of kidney disease than serum creatinine alone.This calculation takes sex and race into account, if the information is provided. If the race is not provided, and the patient is -[place], multiply by 1.212. If sex is not provided, and the patient is female, multiply by 0.742. Results for patients <18 years of age have not been validated by the MDRD study and should be interpreted with caution. eGFR Result Interpretation:eGFR > or = 60 is in the Normal RangeeGFR < 60 may mean kidney diseaseeGFR < 15 may mean kidney failure Ranges recommended by the National Kidney Foundation, http://nkdep.nih.gov eGFR Non-AA (test code = eGFR Non-AA) 49.82 mL/min/1.73 m2 N eGFR (estimated Glomerular Filtration Rate) is an estimated value, calculated from the patient's serum creatinine using the MDRD equation. It is NOT the patient's actual GFR. The eGFR provides a more clinically useful measure of kidney disease than serum creatinine alone.This calculation takes sex and race into account, if the information is provided. If the race is not provided, and the patient is -[place], multiply by 1.212. If sex is not provided, and the patient is female, multiply by 0.742. Results for patients <18 years of age have not been validated by the MDRD study and should be interpreted with caution. eGFR Result Interpretation:eGFR > or = 60 is in the Normal RangeeGFR < 60 may mean kidney diseaseeGFR < 15 may mean kidney failure Ranges recommended by the National Kidney Foundation, http://nkdep.nih.gov Urine Drug [id number] 12:01:40* Test Item Value Reference Range Interpretation Comme nts Amphetamine Screen Ur (test code = Amphetamine Screen Ur) Negative Negative Barbiturate Screen Ur (test code = Barbiturate Screen Ur) Negative Negative Benzodiazepines Ur (test code = Benzodiazepines Ur) Negative Negative Cocaine Screen Ur (test code = Cocaine Screen Ur) Negative Negative U Methadone Scr (test code = U Methadone Scr) Negative Negative Opiate Screen Ur (test code = Opiate Screen Ur) Negative Negative U PCP Scrn (test code = U PCP Scrn) Negative Negative Cannabinoid Screen Ur (test code = Cannabinoid Screen Ur) Negative Negative U TCA (test code = U TCA) Negative Negative The results of a ll drug screen tests are only preliminary. Clinical consideration and professional judgment should be applied to any drug of abuse test result, particularly when preliminary positive results are obtained. Please order a separate confirmatory test if desired. Complete Blood Count with [id number] 11:38:14* Test Item Value Reference Range Interpretation Comme nts WBC (test code = WBC) 6.9 x10 4.4-10.5 RBC (test code = RBC) 5.03 x10 4.10-5.70 Hgb (test code = Hgb) 15.0 g/dL 13.4-17.4 MCV (test code = MCV) 88.70 fL 80.00-100.00 Hct (test code = Hct) 44.6 % 38.7-52.0 MCHC (test code = MCHC) 33.60 g/dL 32.00-37.50 RDW CV (test code = RDW CV) 12.7 % 11.5-14.5 MCH (test code = MCH) 29.8 pg 27.0-32.5 Platelets (test code = Platelets) 187.0 x10 140.0-440.0 MPV (test code = MPV) 12.1 fL N Slide Review (test code = Slide Review) Auto Auto Result crea cata by GL_SJM_SLIDE_REV_AUTO nRBC (test code = nRBC) 0 N NRBC Abs (test code = NRBC Abs) 0.00 x10 N IPF (test code = IPF) 0 % N Automated [id number] 11:38:14* Test Item Value Reference Range Interpretation Comme nts Neutro Auto (test code = Joshua tro Auto) 76.4 % 36.0-70.0 H Lymph Auto (test code = Lymph Auto) 15.8 % 12.0-44.0 [place] Auto (test code = [place] Auto) 6.7 % 0.0-11.0 Eos, Auto (test code = Eos, Auto) 0.3 % 0.0-7.0 Basophil Auto (test code = B asophil Auto) 0.4 % 0.0-2.0 Neutro Absolute (test code = Neutro Absolute) 5.3 x10 1.6-7.4 Lymph Absolute (test code = Lymph Absolute) 1.09 x10 .50-4.60 [place] Absolute (test code = M caitlin Absolute) .46 x10 .00-1.20 Eos Absolute (test code = Eo s Absolute) 0.02 x10 0.00-0.74 Baso Absolute (test code = B aso Absolute) 0.03 x10 0.00-0.21 IG [id number] 11:38:14* Test Item Value Reference Range Interpretation Comme nts IG (test code = IG) 0.4 % 0.0-5.0 IG Abs (test code = IG Abs) 0 x10 N Urinalysis with Culture, if [id number] 11:37:19* Test Item Value Reference Range Interpretation Comme nts UA Color (test code = UA Color) STRAW Yellow UA Appear (test code = UA Appear) CLEAR Clear UA pH (test code = UA pH) 5 N UA Spec Grav (test code = UA Spec Grav) 1.008 1.001-1.035 UA Glucose (test code = UA Glucose) NEG Negative UA Bili (test code = UA Bili) NEG Negative UA Ketones (test code = UA Ketones) 5 mg/dL Negative UA Blood (test code = UA Blood) 25 cells/mcL Negative A UA Protein (test code = UA Protein) 500 mg/dL Negative A UA Urobilinogen (test code = UA Urobilinogen) 0.2 mg/dL N UA Nitrite (test code = UA Nitrite) NEG Negative UA Leuk Est (test code = UA Leuk Est) NEG Negative UA Micro Ind? (test code = UA Micro Ind?) Indicated Not Indicated A Result cre ated by rule GL_SJM_UA_MICRO_IN D POC [id number] 11:07:06* Test Item Value Reference Range Interpretation Comme nts Glucose POC (test code = Glucose POC) 123 mg/dL 70-115 H If you consi eve your patient critically ill, the Sj-Accu Check Infrom II meter should not be used for Glucose determination. Draw a venous Glucose and send to the main Lab for analysis."
[2023-11-15 23:55] LABS: Absolute Basophils 0.1 K/uL (0-0.5); Absolute Eosinophils 0.1 K/uL (0-0.5); Absolute Lymphocytes (CBC) 1.2 K/uL (0.7-4.9); Absolute Monocytes 0.4 K/uL (0.1-1.3); Absolute Neutrophil 4.4 K/uL (1.8-8.0); Basophils % 1.4 % (0-1.3); Eosinophils % 1.5 % (0-4.4); Hematocrit 37.5 % (39.6-49.0); Hemoglobin 12.4 g/dL (13.6-17.9); Lymphocytes % 19.6 % (15.3-44.8); MCH 29.2 pg (27.0-35.0); MCHC 33.1 g/dL (32.0-36.0); MCV 88.3 fL (80-100); MPV 8.5 fL (7.6-11.3); Monocytes % 6.6 % (3.3-12.3); Neutrophils % 70.9 % (41.7-73.7); Nucleated Red Blood Cells % 0.1 % (0-0); Platelets 185 thou/uL (152-406); RBC Red Blood Cell Count 4.25 M/uL (4.33-5.43); Red Cell Distribution Width 14.2 % (12.1-15.2)
[2023-11-16 00:17] LABS: ALT/SGPT 23 U/L (16-61); AST/SGOT 20 U/L (15-37); Albumin 3.2 g/dL (3.4-5.0); Albumin/Globulin Ratio 0.9 (1.1-1.8); Alkaline Phosphatase 98 U/L (45-117); Anion Gap 7.9 mEq/L (5.0-15.0); BUN Blood Urea Nitrogen 46 mg/dL (7-18); Bicarbonate 25 mEq/L (21-32); Bilirubin Total 0.3 mg/dL (0.2-1.0); Globulin 3.6 g/dL (2.3-3.5); Glomerular Filtration Rate 23 ml/min (=/>90); Glucose Level 170 mg/dL (74-106); Magnesium 2.4 mg/dL (1.6-2.4); NT PRO-BNP 244 pg/mL (<450); Potassium 4.9 mEq/L (3.5-5.1); Protein, Total 6.8 g/dL (6.4-8.2); Sodium Level 138 mEq/L (136-145)
[2023-11-16 00:21] LABS: Bilirubin Direct < 0.1 mg/dL (0-0.2); Bilirubin Indirect, Calculated ND mg/dL (0.2-0.8)
--- NOTE | 2023-11-16 00:55 | ER ---
Nurse's Notes [facility] Name: Arun Mccall Age: 78 yrs Sex: Male : 1945 Arrival Date: 11/15/2023 Time: 23:04 Bed 3 Private MD: Diagnosis: Dizziness and giddiness;Syncope Near;Acute on chronic kidney failure Presentation: 11/14 23:05 Chief complaint: Patient states: I am a little dizzy and I fell out of bed. Coronavirus bm8 screen: Client denies travel out of the [place] in the last 14 days. At this time, unable to obtain information related to travel outside the [place] At this time, the client does not indicate any symptoms associated with coronavirus-19. Ebola Screen: Patient negative for fever greater than or equal to 101.5 degrees Fahrenheit, and additional compatible Ebola Virus Disease symptoms Patient denies exposure to infectious person. Patient denies travel to an Ebola-affected area in the 21 days before illness onset. No symptoms or risks identified at this time. 23:05 Method Of Arrival: EMS: [facility] bm8 23:05 Initial Sepsis Screen: Does the patient meet any 2 criteria? No. Patient's initial bm8 sepsis screen is negative. Does the patient have a suspected source of infection? No. Patient's initial sepsis screen is negative. Risk Assessment: Do you want to hurt yourself or someone else? Patient reports no desire to harm self or others. Onset of symptoms was November 15, 2023 at 22:30. Care prior to arrival: Medication(s) given: IV initiated. 20 GA, in the right forearm, Oxygen administered. via nasal cannula. 23:05 Acuity: CHAYITO 3 bm8 Triage Assessment: 23:29 General: Appears in no apparent distress. comfortable, Behavior is calm, cooperative, bm8 appropriate for age. Pain: Denies pain. EENT: No deficits noted. No signs and/or symptoms were reported regarding the EENT system. Neuro: Level of Consciousness is awake, alert, obeys commands, Oriented to person, place, time, situation, Appropriate for age Ske[place] are equal bilaterally Moves all extremities. Full function Speech is normal, Reports dizziness. Cardiovascular: Denies chest pain, shortness of breath, Heart tones S1 S2 present Capillary refill < 3 seconds Patient's skin is warm and dry. Respiratory: Airway is patent Respiratory effort is even, unlabored, Respiratory pattern is regular, symmetrical. GI: No deficits noted. No signs and/or symptoms were reported involving the gastrointestinal system. : No deficits noted. No signs and/or symptoms were reported regarding the genitourinary system. Derm: Bruising that is on lateral aspect of right calf. Historical: - Allergies: 23:29 fenofibrate nanocrystallized; bm8 23:29 insulin degludec; bm8 - PMHx: 23:29 Anxiety; Diabetes - IDDM; hemroids; Diverticulitis; Hypertension; HLD; bm8 - PSHx: 23:29 colon sx; bm8 - Immunization history:: Adult Immunizations up to date. - Infectious Disease History:: Denies. - Social history:: Smoking status: unknown. Screenin:31 [facility] ED Fall Risk Assessment (Adult) History of falling in the last 3 months, bm8 including since admission Yes- single mechanical fall (1 pt) Confusion or Disorientation No (0 pts) Intoxicated or Sedated Yes (3 pts) Impaired Gait No (0 pts) Mobility Assist Device Used No (0 pt) Altered Elimination No (0 pt) Score/Fall Risk Level 0 - 2 = Low Risk Oriented to surroundings, Maintained a safe environment, Educated pt \T\ family on fall prevention, incl call for assistance when getting out of bed. Abuse screen: Denies threats or abuse. Nutritional screening: No deficits noted. Tuberculosis screening: No symptoms or risk factors identified. Rasheeda Swallow Protocol Exclusion Criteria: Exclusion Criteria Result: Proceed Brief Cognitive Screen What is your name? Normal, Where are you right now? Normal, What year is it? Normal. Oral Mechanism Examination Facial Symmetry: Normal, Motion: Normal, Lip Closure: Normal, Oral Mechanism Result: Normal. 3 oz Water Swallow Challenge: Pt able to drink all water without stopping, coughing, choking or throat clearing: Yes Result: PASS. Assessment: 23:31 Reassessment: see triage note. 8 11/15 01:11 Reassessment: Patient appears in no apparent distress at this time. Patient and/or bm8 family updated on plan of care and expected duration. Pain level reassessed. Patient is alert, oriented x 3, equal unlabored respirations, skin warm/dry/pink. Patient denies pain at this time. General: Appears in no apparent distress. comfortable, Behavior is calm, cooperative, appropriate for age. Pain: Denies pain. Neuro: No deficits noted. Level of Consciousness is awake, alert, obeys commands, Oriented to person, place, time, situation, Appropriate for age. Cardiovascular: Denies chest pain, Heart tones S1 S2 present Capillary refill < 3 seconds Patient's skin is warm and dry. Respiratory: No deficits noted. Airway is patent Respiratory effort is even, unlabored, Respiratory pattern is regular, symmetrical. GI: No deficits noted. No signs and/or symptoms were reported involving the gastrointestinal system. : No deficits noted. No signs and/or symptoms were reported regarding the genitourinary system. EENT: No deficits noted. No signs and/or symptoms were reported regarding the EENT system. Vital Signs: 11/14 23:05 BP 154 / 82; Pulse 80; Resp 18; Temp 98; Pulse Ox 100% ; Weight 83.46 kg; Height 5 ft. bm8 10 in. ; Pain 0/10; 11/15 01:11 BP 155 / 79; Pulse 86; Resp 20; Temp 98; Pulse Ox 94% ; Pain 0/10; bm8 11/14 23:05 Body Mass Index 26.40 (83.46 kg, 177.8 cm) bm8 11/14 23:05 Pain Scale: Adult bm8 11/15 01:11 Pain Scale: Adult bm8 [place] Coma Score: 11/14 23:31 Eye Response: spontaneous(4). Motor Response: obeys commands(6). Verbal Response: bm8 oriented(5). Total: 15. 11/15 01:11 Eye Response: spontaneous(4). Motor Response: obeys commands(6). Verbal Response: bm8 oriented(5). Total: 15. NIH Stroke Scale Scores: 11/14 23:31 NIHSS Score: 0 bm8 ED Course: 23:06 Patient arrived in ED. km8 23:07 [facility] sb4 23:07 Kendell Carrillo MD is Attending Physician. sb4 23:24 David Griffin, RN is Primary Nurse. bm8 23:29 Triage completed. bm8 23:29 Arm band placed on left wrist. EKG completed in triage. Results shown to MD. EKG done bm8 per protocol. Performed by ED Staff. Shown to ED physician. 23:31 Patient has correct armband on for positive identification. Placed in gown. Bed in low bm8 position. Call light in reach. Side rails up X2. Adult w/ patient. Client placed on continuous cardiac and pulse oximetry monitoring. NIBP monitoring applied. lunchroom monitor on. Pulse ox on. NIBP on. Door closed. Noise minimized. Warm blanket given. Verbal reassurance given. 23:31 No provider procedures requiring assistance completed. bm8 23:35 IV is swollen, with fluids not infusing freely, without good blood return, 20 gauge km8 right FA IV placed by EMS was d/c'd due to infilatraion; catheter tip intact upon removal, pressure dressing applied. 23:42 Basic Metabolic Panel Sent. km8 23:42 CBC with Diff Sent. km8 23:42 LFT's Sent. km8 23:42 Magnesium Sent. km8 23:42 NT PRO-BNP Sent. km8 23:42 Troponin HS Sent. km8 23:42 Initial lab(s) drawn, by me, sent to lab. EKG done, by ED staff, reviewed by Jennifer Conner PA-C. Inserted saline lock: 22 gauge in left wrist, using aseptic technique. Blood collected. 11/15 00:07 XRAY Chest (1 view) In Process Unspecified. EDMS 00:54 Satya Quintero MD is Hospitalizing Provider. sb4 01:14 Provided Education on: need for admit. bm8 01:14 Patient admitted, IV remains in place. bm8 04:46 Kendell Carrillo MD is Attending Physician. ec2 08:47 Primary Nurse role handed off by David Griffin RN jl7 Administered Medications: No medications were administered Medication: 11/14 23:31 VIS not applicable for this client. bm8 Outcome: 11/15 00:54 Decision to Hospitalize by Provider. sb4 01:14 Admitted to ER Hold. Please see [facility] for further documentation. bm8 01:14 Condition: stable 01:14 Instructed on the need for admit, 14:42 Patient left the ED. iw NIH Stroke Scale - NIH Stroke Score Date: 11/15/2023 Time: 23:31 Total Score = 0 10. Dysarthria (speech clarity - read or repeat words) - 0(Normal) 11. Extinction and Inattention (visual/tactile/auditory/spatial/personal) - 0(No abnormality) 1a. Level of Consciousness (LOC) - 0(Alert) 1b. Level of Consciousness (LOC) (Month \T\ Age) - 0(Both) 1c. LOC Commands (Open \T\ Closes Eyes/Saw Filer) - 0(Both) 2. Best Gaze (Lateral Gaze Paresis) - 0(Normal) 3. Visual Field Loss - 0(No visual loss) 4. Facial Palsy - 0(Normal) 5a. Left Arm: Motor (10-second hold) - 0(No drift) 5b. Right Arm: Motor (10-second hold) - 0(No drift) 6a. Left Leg: Motor (5-second hold - always test supine) - 0(No drift) 6b. Right Leg: Motor (5-second hold - always test supine) - 0(No drift) 7. Limb Ataxia (finger/nose \T\ heel/feliciano - test with eyes open) - 0(Absent) 8. Sensory Loss (pinprick arms/legs/face) - 0(Normal) 9. Best Language: Aphasia (description/naming/reading) - 0(No aphasia) Initials: bm8 Signatures: Dispatcher [employer] EDPatrizia Browne, RN ASTRID iw Hortencia Burton RN RN jl7 Jennifer Conner PA-C PA-C sb4 Kendell Carrillo MD MD ec[address], ASTRID RN km8 David Griffin RN RN bm8
--- NOTE | 2023-11-16 00:55 | EDPHYS ---
Physician Documentation [facility] Name: Arun Mccall Age: 78 yrs Sex: Male : 1945 Arrival Date: 11/15/2023 Time: 23:04 Bed 3 Private MD: ED Physician Kendell Carrillo HPI: 11/14 23:44 This 78 yrs old Male presents to ER via EMS with complaints of dizziness. sb4 11/15 00:00 patient states he started feeling dizzy this evening while laying in bed, tried to get sb4 up, and fell over. did not hit his head, did not lose consciousness. states he believes he is dehydrated. he has had housing issues, been in and out of several different places over the past year, has lost almost 50 pounds. does not take any daily medications. Historical: - Allergies: 11/14 23:29 fenofibrate nanocrystallized; bm8 23:29 insulin degludec; bm8 - PMHx: 23:29 Anxiety; Diabetes - IDDM; hemroids; Diverticulitis; Hypertension; HLD; bm8 - PSHx: 23:29 colon sx; bm8 - Immunization history:: Adult Immunizations up to date. - Infectious Disease History:: Denies. - Social history:: Smoking status: unknown. ROS: 11/15 00:00 Constitutional: Negative for fever, chills, and weight loss, sb4 Neuro: Positive for dizziness, All other systems are negative, Exam: 00:00 Constitutional: This is a well developed, well nourished patient who is awake, alert, sb4 and in no acute distress. Head/Face: Normocephalic, atraumatic. Eyes: Extra-ocular motions intact. Periorbital areas with no swelling, redness, or edema. ENT: Mucous membranes moist. Cardiovascular: Regular rate and rhythm with a normal S1 and S2. Respiratory: Lungs have equal breath sounds bilaterally, clear to auscultation and percussion. No rales, rhonchi or wheezes noted. No increased work of breathing, no retractions or nasal flaring. Abdomen/GI: Soft, non-tender, no distension. Skin: Warm, dry with normal turgor. Normal color with no rashes, no lesions, and no evidence of cellulitis. MS/ Extremity: Pulses equal, no cyanosis. Neurovascular intact. Full, normal range of motion. Neuro: Awake and alert, GCS 15, oriented to person, place, time, and situation. Motor strength 5/5 in all extremities. Sensory grossly intact. Vital Signs: 11/14 23:05 BP 154 / 82; Pulse 80; Resp 18; Temp 98; Pulse Ox 100% ; Weight 83.46 kg; Height 5 ft. bm8 10 in. ; Pain 0/10; 11/15 01:11 BP 155 / 79; Pulse 86; Resp 20; Temp 98; Pulse Ox 94% ; Pain 0/10; bm8 11/14 23:05 Body Mass Index 26.40 (83.46 kg, 177.8 cm) bm8 11/14 23:05 Pain Scale: Adult bm8 11/15 01:11 Pain Scale: Adult bm8 NIH Stroke Scale Scores: 11/14 23:31 NIHSS Score: 0 bm8 Semaj Coma Score: 23:31 Eye Response: spontaneous(4). Motor Response: obeys commands(6). Verbal Response: bm8 oriented(5). Total: 15. 11/15 01:11 Eye Response: spontaneous(4). Motor Response: obeys commands(6). Verbal Response: bm8 oriented(5). Total: 15. MDM: 11/14 23:07 Patient medically screened. sb4 23:44 Refusal of service: The patient/guardian displays adequate decision making capability sb4 and despite a detailed discussion of alternatives, benefits, risks, and consequences refuses: CT Scan. 11/15 00:53 Data reviewed: vital signs, nurses notes, EMS record, lab test result(s), EKG, sb4 radiologic studies, and as a result, I will admit patient. Consideration of Admission/Observation Patient was admitted/placed on observation. ED course: patient still very dizzy, unsteady on his feet while attempting to ambulate to restroom. 11/14 23:23 Order name: Basic Metabolic Panel; Complete Time: 00:22 sb4 11/14 23:23 Order name: CBC with Diff; Complete Time: 00:22 sb4 11/14 23:23 Order name: LFT's; Complete Time: 00:22 sb4 11/14 23:23 Order name: Magnesium; Complete Time: 00:22 sb4 11/14 23:23 Order name: NT PRO-BNP; Complete Time: 00:22 sb4 11/14 23:23 Order name: Troponin HS; Complete Time: 00:22 sb4 11/15 01:06 Order name: Urinalysis w/ reflexes EDMS 11/15 10:57 Order name: Basic Metabolic Panel; Complete Time: 13:04 EDMS 11/14 23:23 Order name: XRAY Chest (1 view) sb4 11/15 01:11 Order name: Head Brain Wo Cont EDMS 11/15 12:33 Order name: US; Complete Time: 13:04 EDMS 11/14 23:23 Order name: EKG; Complete Time: 23:23 sb4 11/14 23:23 Order name: Cardiac monitoring; Complete Time: 23:42 sb4 11/14 23:23 Order name: EKG - Nurse/Tech; Complete Time: 23:42 sb4 11/14 23:23 Order name: IV Saline Lock; Complete Time: 23:42 sb4 11/14 23:23 Order name: Labs collected and sent; Complete Time: 23:42 sb4 11/14 23:23 Order name: O2 Per Protocol; Complete Time: 23:42 sb4 11/14 23:23 Order name: O2 Sat Monitoring; Complete Time: 23:42 sb4 EC:00 Rate is 83 beats/min. Rhythm is regular, Normal Sinus Rhythm. Left axis deviation sb4 noted. PA interval is normal at 186 msec. QRS interval is normal at 116 msec. QT interval is normal at [address] changes noted. Clinical impression: LVH. Interpreted by me. Reviewed by me. Administered Medications: No medications were administered Disposition Summary: 11/16/23 00:54 Hospitalization Ordered Notes: Hospitalization Status: Observation sb4 Provider: Satya Quintero sb4 Condition: Fair sb4 Problem: new sb4 Symptoms: are unchanged sb4 Bed/Room Type: Standard sb4 Location: [facility] ER HOLD(11/16/23 02:53) jb4 Room Assignment: ERHOLD-(11/16/23 02:53) jb4 Diagnosis - Dizziness and giddiness sb4 - Syncope Near sb4 - Acute on chronic kidney failure sb4 Forms: - Medication Reconciliation Form sb4 - SBAR form sb4 - Leadership Thank You Letter sb4 NIH Stroke Scale - NIH Stroke Score Date: 11/15/2023 Time: 23:31 Total Score = 0 10. Dysarthria (speech clarity - read or repeat words) - 0(Normal) 11. Extinction and Inattention (visual/tactile/auditory/spatial/personal) - 0(No abnormality) 1a. Level of Consciousness (LOC) - 0(Alert) 1b. Level of Consciousness (LOC) (Month \T\ Age) - 0(Both) 1c. LOC Commands (Open \T\ Closes Eyes/Estimator Lumber) - 0(Both) 2. Best Gaze (Lateral Gaze Paresis) - 0(Normal) 3. Visual Field Loss - 0(No visual loss) 4. Facial Palsy - 0(Normal) 5a. Left Arm: Motor (10-second hold) - 0(No drift) 5b. Right Arm: Motor (10-second hold) - 0(No drift) 6a. Left Leg: Motor (5-second hold - always test supine) - 0(No drift) 6b. Right Leg: Motor (5-second hold - always test supine) - 0(No drift) 7. Limb Ataxia (finger/nose \T\ heel/feliciano - test with eyes open) - 0(Absent) 8. Sensory Loss (pinprick arms/legs/face) - 0(Normal) 9. Best Language: Aphasia (description/naming/reading) - 0(No aphasia) Initials: bm8 Signatures: Dispatcher [employer] EDMS Duke Liao, RN RN jb4 Jennifer Conner PA-C PAHonorio sb4 David Griffin RN RN bm8 Corrections: (The following items were deleted from the chart) 11/14 23:24 23:23 BASIC METABOLIC PANEL+C.LAB.BRZ ordered. EDMS EDMS 23:24 23:23 CBC+H.LAB.BRZ ordered. EDMS EDMS 23:24 23:23 HEPATIC FUNCTION+C.LAB.BRZ ordered. EDMS EDMS 23:24 23:23 MAGNESIUM+C.LAB.BRZ ordered. EDMS EDMS 23:24 23:23 PROBNP+C.LAB.BRZ ordered. EDMS EDMS 23:24 23:23 Troponin High Sensitivity+C.LAB.BRZ ordered. EDMS EDMS 11/15 01:11 01:02 CT-HEAD/BRAIN W/O CONTRAST ordered. EDMS EDMS 02:53 00:54 Telemetry/MedSurg (observation) sb4 jb4 02:53 00:54 sb4 jb4
--- NOTE | 2023-11-16 00:59 | P.HP ---
Certification for Inpatient Patient admitted to: Observation With expected LOS: <2 Midnights Practitioner: I am a practitioner with admitting privileges, knowledge of patient current condition, hospital course, and medical plan of care. Services: Services provided to patient in accordance with Admission requirements found in Title 42 Section 412.3 of the Code of Federal Regulations Patient History Date of Service: 11/16/23 Reason for admission: Dizziness History of Present Illness: 78 yrs old Male with past medical history of hypertension, anxiety, diverticulitis, diabetes, hyperlipidemia, history of colon surgery, hemorrhoids, came to ER with dizziness. Patient states that he started having feeling dizzy this afternoon while laying on bed at try to get up and fell over but states that he did not hit his head. No loss of consciousness. Denies any chest pain or shortness of breath. No fever or chills. No sick contacts. Is not taking any medications at home As he has some housing issues , been in and out of several different places over the past year, has lost almost 50 pounds He was assessed in the ER and was noted to have acute kidney injury and possible dehydration and was admitted for further management Allergies fenofibrate nanocrystallized [From Tricor] Allergy (Mild, Verified 11/29/22 20:51) Unknown insulin degludec [From Tresiba FlexTouch U-100] Adverse Reaction (Intermediate, Verified 11/29/22 20:51) Anaphylaxis Home medications list reviewed: Yes Home Medications: Anxiety And Stress Relief 1 tab PO DAILY 11/29/22 Bismuth Subsalicylate [Kaopectate] 262 mg PO DAILY 11/29/22 Garlique 1 tab PO DAILY 11/29/22 Loperamide [Imodium*] 2 mg PO Q4H PRN #20 cap 01/09/23 Metoprolol Tartrate 50 mg PO BID #60 tab 01/09/23 Phenylephrine HCl/[place] Butter [Preparation H Suppository] 1 each RC BID #30 supp.rect 01/09/23 Simvastatin 40 mg PO BEDTIME #30 tab 01/09/23 - Past Medical/Surgical History Diabetic: Yes Past Medical History: Reviewed- Non-Contributory -: DM II -: HTN -: CKD III with Proteinuria Past Surgical History: Reviewed- Non-Contributory -: colon surgery - Family History Family History: Reviewed- Non-Contributory - Family History Father -: Heart disease - Social History Smoking Status: Never smoker Alcohol use: No CD- Drugs: No Caffeine use: Yes Review of Systems 10-point ROS is otherwise unremarkable Physical Examination - Vital Signs Temperature: 98.2 F Blood Pressure: 130/82 Pulse: 78 Respirations: 18 Pulse Ox (%): 94 - Physical Exam General: Alert, In no apparent distress, Cooperative HEENT: Atraumatic, Normocephalic Neck: Supple, No LAD Respiratory: Clear to auscultation bilaterally, Normal air movement Cardiovascular: Normal pulses, Regular rate/rhythm, Normal S1 S2 Capillary refill: <2 Seconds Gastrointestinal: Soft and benign, W/out hepatosplenomegaly Musculoskeletal: No clubbing, No swelling Integumentary: No rashes, No breakdown Neurological: Normal strength at 5/5 x4 extr, Cranial nerves 3-12 intact, Normal reflexes 2+ Lymphatics: No axilla or inguinal lymphadenopathy - Studies Laboratory Data (last 24 hrs) 11/15/23 11/15/23 23:40 23:40 WBC 6.10 Hgb 12.4 L Hct 37.5 L Plt Count 185 Sodium 138 Potassium 4.9 BUN 46 H Creatinine 2.78 H Glucose 170 H Magnesium 2.4 Total Bilirubin 0.3 AST 20 ALT 23 Alkaline Phosphatase 98 Assessment and Plan - Problems (Diagnosis) (1) Dizziness Current Visit: Yes Status: Acute Plan: Presyncopal episode Still complains of dizziness Patient had a fall Will obtain a CT of the brain Monitor neuro vital signs Acute kidney injury Dehydration Patient has baseline history of CKD stage II Not on any medications Monitor renal parameters On IV hydration Electrolytes monitor and replace accordingly Diabetes Insulin sliding scale Will get an A1c in a.m. Accu-Chek before every meal and at bedtime Hypertension Continue home medications and titrate as needed GI/DVT prophylaxis Advanced directive full code Discharge Plan: Home Plan to discharge in: 24 Hours - Advance Directives Does patient have a Living Will: No Does patient have a Durable POA for Healthcare: No - Code Status/Comfort Care Code Status: Full Code Time Spent Managing Pts Care (In Minutes): 48
[2023-11-16] MEDS ORDERED: ONDANSETRON 4 MG/2 ML VIAL IV PRN (01:01)
[2023-11-16] MEDS ORDERED: ACETAMINOPHEN 325 MG TABLET PO PRN (01:01)
[2023-11-16] MEDS: NA CHLORIDE 0.9% 1,000 ML IV SCH (02:00)
[2023-11-16 04:18] VITALS: BMI 26.2
[2023-11-16] MEDS ORDERED: NA CHLORIDE 0.9% 1,000 ML ONE (04:23)
[2023-11-16] MEDS ORDERED: ENOXAPARIN 30 MG/0.3 ML SQ ONE (07:43)
[2023-11-16] MEDS: ENOXAPARIN 30 MG/0.3 ML SQ SCH (09:00)
[2023-11-16 09:20] VITALS: O2SAT 95
--- NOTE | 2023-11-16 09:41 | P.PN ---
Subjective Date of Service: 11/16/23 Chief Complaint: Dizziness Admitted for dizziness, and explained weight loss, acute kidney injury, dehydration - Physical Exam General: Alert, In no apparent distress, Cooperative HEENT: Atraumatic, Normocephalic Neck: Supple, No LAD Respiratory: Clear to auscultation bilaterally, Normal air movement Cardiovascular: Normal pulses, Regular rate/rhythm, Normal S1 S2 Capillary refill: <2 Seconds Gastrointestinal: Soft and benign, W/out hepatosplenomegaly Musculoskeletal: No clubbing, No swelling Integumentary: No rashes, No breakdown Neurological: Normal strength at 5/5 x4 extr, Cranial nerves 3-12 intact, Normal reflexes 2+ Lymphatics: No axilla or inguinal lymphadenopathy Review of Systems 10-point ROS is otherwise unremarkable Physical Examination - Vital Signs Temperature: 97.8 F Blood Pressure: 139/60 Pulse: 80 Respirations: 17 Pulse Ox (%): 98 - Studies Laboratory Data (last 24 hrs) 11/15/23 11/15/23 23:40 23:40 WBC 6.10 Hgb 12.4 L Hct 37.5 L Plt Count 185 Sodium 138 Potassium 4.9 BUN 46 H Creatinine 2.78 H Glucose 170 H Magnesium 2.4 Total Bilirubin 0.3 AST 20 ALT 23 Alkaline Phosphatase 98 Assessment And Plan - Plan Assessment and Plan Dizziness Presyncopal episode Still complains of dizziness Patient had a fall Will obtain a CT of the brain Monitor neuro vital signs Echo ordered Unexplained weight loss Greater than 50 lbs Acute kidney injury Dehydration Patient has baseline history of CKD stage II Not on any medications Monitor renal parameters On IV hydration Electrolytes monitor and replace accordingly Diabetes Insulin sliding scale Will get an A1c in a.m. Accu-Chek before every meal and at bedtime Hypertension Continue home medications and titrate as needed GI/DVT prophylaxis Lovenox Advanced directive full code Diet diabetic Disposition Home, independent prior Discharge Plan: Home - Code Status/Comfort Care Code Status: Full Code Critical Care: No Time Spent Managing PTS Care (In Minutes): 35
[2023-11-16 10:57] LABS: Anion Gap 6.3 mEq/L (5.0-15.0); Potassium 4.3 mEq/L (3.5-5.1)
--- NOTE | 2023-11-16 12:33 | RAD REPORT ---
EXAM DESCRIPTION: US - CP - 11/16/2023 10:23 am CLINICAL HISTORY: Syncope COMPARISON: Head C Spine Mpr Wo Con dated 12/09/2022 TECHNIQUE: Real-time sonographic grayscale, color duplex, and spectral wave Doppler evaluation of [facility] carotid systems was performed. FINDINGS: Normal high resistance waveforms are noted in both external carotid arteries. The common c arotid arteries and internal carotid arteries show normal low resistance waveforms, although spectral broadening is seen along the left CCA and right ICA. Up to moderate plaque formation is seen most notably at the left more than right carotid bulbs. Peak systolic velocity less than 125 cm/ sec bilaterally. ICA/CCA peak systolic ratios less than 2.0 [address]. Velocities throughout the right ICA and CCA. Elevated velocity along the proximal left ECA s uggesting a degree of stenosis. Antegrade flow seen in both vertebral arteries. IMPRESSION: Up to moderate atherosclerotic changes noted more pronounced on the left. Reduced peak systolic velocities along the right CCA and ICA, findings which may relate to more proxi mal stenosis. Less than 50% stenosis of the left ICA. Evaluation of carotid artery stenosis, if any, is reported based on consensus recommendations of the Society of Radiologists in Ultrasound (Williams et al., Radiology, 2003)
[2023-11-16 12:48] VITALS: BP 164/69; TEMP 97.5
[2023-11-16] MEDS ORDERED: METOPROLOL TAR 50 MG TAB PO SCH (14:00)
--- NOTE | 2023-11-16 16:49 | P.DS ---
Admission Date: 11/16/23 Discharge Date: 11/18/23 Reason for Admission: Dizziness Brief History of Present Illness: 78 yrs old Male with past medical history of hypertension, anxiety, diverticulitis, diabetes, hyperlipidemia, history of colon surgery, hemorrhoids, came to ER with dizziness. Patient states that he started having feeling dizzy this afternoon while laying on bed at try to get up and fell over but states that he did not hit his head. No loss of consciousness. Denies any chest pain or shortness of breath. No fever or chills. No sick contacts. Is not taking any medications at home As he has some housing issues , been in and out of several different places o awa the past year, has lost almost 50 pounds He was assessed in the ER and was noted to have acute kidney injury and possible dehydration and was admitted for further management - Physical Exam General: Alert, In no apparent distress, Cooperative HEENT: Atraumatic, Normocephalic Neck: Supple, No LAD Respiratory: Clear to auscultation bilaterally, Normal air movement Cardiovascular: Normal pulses, Regular rate/rhythm, Normal S1 S2 Capillary refill: <2 Seconds Gastrointestinal: Soft and benign, W/out hepatosplenomegaly Musculoskeletal: No clubbing, No swelling Integumentary: No rashes, No breakdown Neurological: Normal strength at 5/5 x4 extr, Cranial nerves 3-12 intact, Normal reflexes 2+ Lymphatics: No axilla or inguinal lymphadenopathy Hospital Course: 78 year-old male patient hypertension, anxiety, diverticulitis, diabetes, hyperlipidemia, history of colon surgery, hemorrhoids, came to ER with dizziness. Was noted to have a fall, presyncopal., Acute kidney injury, dehydration, history of CKD stage III, Condition improved with IV fluids, Patient tolerating diet, stable for discharge to home with follow-up appointment with primary care physician. PROBLEM: Dehydration treated with IV fluids Dizziness Presyncope Fall-ambulate with assist, with DME walker as needed Unexplained weight loss over the past year CKD Anemia CT of the head IMPRESSION: No acute intracranial findings. Carotid Doppler ultrasound IMPRESSION: Up to moderate atherosclerotic changes noted more pronounced on the left. Reduced peak systolic velocities along the right CCA and ICA, findings which may relate to more proximal stenosis.Less than 50% stenosis of the left ICA Continue home medicines as previously prescribed GOAL: Clear understanding of disease process INSTRUCTIONS: Physician Discharge Instructions: -DC IV and DC home -Follow-up with PCP in 1 to 2 weeks -Please call Dr. Marin at [phone] if any questions regarding hospital stay -Please call nursing station at [phone] if any nursing or medication questions -Return to the emergency room if symptoms worsen Diet: ADA, low sodium Activity: Fall precautions <Rizwana Corea - Last Filed: 11/18/23 11:07> Admission Date: 11/16/23 Discharge Date: 11/16/23 Hospital Course: Patient is doing well clinically. Patient denies any other complaints. Plan to discharge with outpatient follow-up. <Lei Marin - Last Filed: 11/19/23 13:10> Disposition: ROUTINE DISCHARGE Discharge Condition: GOOD Vital Signs/Physical Exam: Temp Pulse Resp BP Pulse Ox 97.5 F 79 18 164/69 H 96 11/16/23 12:00 11/16/23 12:00 11/16/23 12:00 11/16/23 12:00 11/16/23 12:00 Laboratory Data at Discharge: WBC 6.10 thou/uL (4.3-10.9) 11/15/23 23:40 Hgb 12.4 g/dL (13.6-17.9) L 11/15/23 23:40 Hct 37.5 % (39.6-49.0) L 11/15/23 23:40 Plt Count 185 thou/uL (152-406) 11/15/23 23:40 Sodium 139 mEq/L (136-145) 11/16/23 10:37 Potassium 4.3 mEq/L (3.5-5.1) 11/16/23 10:37 BUN 44 mg/dL (7-18) H 11/16/23 10:37 Creatinine 2.69 mg/dL (0.70-1.30) H 11/16/23 10:37 Glucose 134 mg/dL (74-106) H 11/16/23 10:37 Magnesium 2.4 mg/dL (1.6-2.4) 11/15/23 23:40 Total Bilirubin 0.3 mg/dL (0.2-1.0) 11/15/23 23:40 AST 20 U/L (15-37) 11/15/23 23:40 ALT 23 U/L (16-61) 11/15/23 23:40 Alkaline Phosphatase 98 U/L (45-117) 11/15/23 23:40 <Rizwana Corea - Last Filed: 11/18/23 11:07> Vital Signs/Physical Exam: Temp Pulse Resp BP Pulse Ox 97.5 F 79 18 164/69 H 96 11/16/23 12:00 11/16/23 12:00 11/16/23 12:00 11/16/23 12:00 11/16/23 12:00 Laboratory Data at Discharge: WBC 6.10 thou/uL (4.3-10.9) 11/15/23 23:40 Hgb 12.4 g/dL (13.6-17.9) L 11/15/23 23:40 Hct 37.5 % (39.6-49.0) L 11/15/23 23:40 Plt Count 185 thou/uL (152-406) 11/15/23 23:40 Sodium 139 mEq/L (136-145) 11/16/23 10:37 Potassium 4.3 mEq/L (3.5-5.1) 11/16/23 10:37 BUN 44 mg/dL (7-18) H 11/16/23 10:37 Creatinine 2.69 mg/dL (0.70-1.30) H 11/16/23 10:37 Glucose 134 mg/dL (74-106) H 11/16/23 10:37 Magnesium 2.4 mg/dL (1.6-2.4) 11/15/23 23:40 Total Bilirubin 0.3 mg/dL (0.2-1.0) 11/15/23 23:40 AST 20 U/L (15-37) 11/15/23 23:40 ALT 23 U/L (16-61) 11/15/23 23:40 Alkaline Phosphatase 98 U/L (45-117) 11/15/23 23:40 <Lei Marin - Last Filed: 11/19/23 13:10> Diet: Regular Activity: Fall precautions Time spent managing pt's care (in minutes): 55 <Rizwana Corea - Last Filed: 11/18/23 11:07> <Lei Marin - Last Filed: 11/19/23 13:10> Home Medications: Anxiety And Stress Relief 1 tab PO DAILY 11/29/22 Bismuth Subsalicylate [Kaopectate] 262 mg PO DAILY 11/29/22 Garlique 1 tab PO DAILY 11/29/22 Loperamide [Imodium*] 2 mg PO Q4H PRN #20 cap 01/09/23 Metoprolol Tartrate 50 mg PO BID #60 tab 01/09/23 Phenylephrine HCl/[place] Butter [Preparation H Suppository] 1 each RC BID #30 supp.rect 01/09/23 Simvastatin 40 mg PO BEDTIME #30 tab 01/09/23 Aspirin [Aspirin EC 81 MG] 81 mg PO DAILY #30 tab 11/16/23 Atorvastatin Calcium [Lipitor] 10 mg PO BEDTIME #30 tab 11/16/23 Docusate [Colace Cap] 100 mg PO DAILY #30 cap 11/16/23 Metoprolol Tartrate [Lopressor] 25 mg PO BID #60 tab 11/16/23 New Medications: Aspirin [Aspirin EC 81 MG] 81 mg PO DAILY #30 tab Docusate [Colace Cap] 100 mg PO DAILY #30 cap Atorvastatin Calcium [Lipitor] 10 mg PO BEDTIME #30 tab Metoprolol Tartrate [Lopressor] 25 mg PO BID #60 tab Physician Discharge Instructions: -DC IV and DC to home -Follow-up with PCP in 1 to 2 weeks -Follow-up with Cardiology in 1 to 2 weeks -Please call Dr. Marin at [phone] if any questions regarding hospital stay -Please call nursing station at [phone] if any nursing or medication questions -Return to the emergency room if symptoms worsen Followup: NONE,NONE [Primary Care Provider] -
[2023-11-16] MEDS ORDERED: ATORVASTATIN 20 MG TAB PO SCH (21:00)
[2023-11-16] MEDS ORDERED: HOME MED 1 EA UNK (Simvastatin [Simvastatin] 40 MG Tablet) PO SCH (21:00)
--- NOTE | 2023-11-17 19:42 | RAD REPORT ---
EXAM DESCRIPTION: CT - Head Brain Wo Cont - 11/16/2023 6:29 am CLINICAL HISTORY: The patient is 78 years old and is Male; Dizziness, right eye vision changes TECHNIQUE: Axial computed tomography images of the head/brain without intravenous contrast. Sagitt al and coronal reformatted images were created and reviewed. This CT exam was performed using one o r more of the following dose reduction techniques: automated exposure control, adjustment of the mA and/or kV according to patient size, and/or use of iterative reconstruction technique. COMPARISON: CT December 09, 2022 FINDINGS: BRAIN: There is diffuse cerebral atrophy present, consistent with this patient's age. There is patchy hypoattenuation of the deep white matter which is non-specific, but most likely owing to chronic small vessel ischemic change in a patient of this age group. No intracranial hemorrhage , mass effect, midline shift is seen. There are no extra-axial fluid collections. VENTRICLES: Unremarkable. No ventriculomegaly. BONES/JOINTS: No acute fracture. SOFT TISSUES: Unremarkable. VASCULATURE: Atherosclerosis of intracranial vasculature is present. SINUSES: Unremarkable as visualized. No acute sinusitis. MASTOID AIR CELLS: Unremarkable as visualized. No mastoid effusion. ORBITS: Unremarkable as visualized. IMPRESSION: No acute intracranial findings. Electronically signed by: Susy Vilchis MD 11/16/2023 01:46 AM CDT Due to temporary technical issues with the PACS/Fluency reporting system, reports are being signed by the in house radiologists without review as a courtesy to insure prompt reporting. The interpreting radiologist is fully responsible for the content of the report.
--- NOTE | 2023-11-17 20:03 | RAD REPORT ---
EXAM DESCRIPTION: RAD - Chest Single View - 11/16/2023 12:05 am CLINICAL HISTORY: The patient is 78 years old and is Male; dizziness TECHNIQUE: Frontal view of the chest. COMPARISON: No relevant prior studies available. FINDINGS: Lungs: Left basilar atelectasis. No consolidation. Pleural space: Unremarkable. No pneumothorax. Heart: Unremarkable. Mediastinum: Unremarkable. Normal mediastinal contour. Bones/joints: No acute findings. Upper abdomen: Elevation of the left hemidiaphragm. IMPRESSION: No acute findings in the chest. Electronically signed by: Michael Gant MD 11/16/2023 12:24 AM CDT Due to temporary technical issues with the PACS/Fluency reporting system, reports are being signed by the in house radiologists without review as a courtesy to insure prompt reporting. The interpreting radiologist is fully responsible for the content of the report.
== END 2023-11-16 14:44 | disposition home or self-care (01) ==
LOC: ER 23:04 → ERHOLD 11-16 01:01
PROVIDERS: ADMIT Family Medicine; ATTEND Hospitalist
DX: E86.0 Dehydration (principal); I12.9 Hypertensive chronic kidney disease with stage 1 through stage 4 chronic kidney disease, or unspecified chronic kidney disease; N17.9 Acute kidney failure, unspecified; N18.2 Chronic kidney disease, stage 2 (mild); R63.4 Abnormal weight loss; D64.9 Anemia, unspecified; I10 Essential (primary) hypertension; F41.9 Anxiety disorder, unspecified; K57.92 Diverticulitis of intestine, part unspecified, without perforation or abscess without bleeding; E11.9 Type 2 diabetes mellitus without complications; E78.5 Hyperlipidemia, unspecified; K64.9 Unspecified hemorrhoids; E11.22 Type 2 diabetes mellitus with diabetic chronic kidney disease; W18.30XA Fall on same level, unspecified, initial encounter; Z88.8 Allergy status to other drugs, medicaments and biological substances
CPT/HCPCS: 93005; 85025; 80048 ×2; 36415; 83735; 80076; 84484; 83880; 70450; 71045; 93880; 99285; J1650; J7030; G0378

== ENCOUNTER 2024-06-01 11:25 | Inpatient (IN) | payer MEDICARE, OTHER ==
[2024-06-01] MEDS ORDERED: NA CHLORIDE 0.9% 500 ML ONE (11:51)
[2024-06-01 12:10] LABS: Absolute Monocytes 0.3 K/uL (0.1-1.3); Eosinophils % 0.9 % (0-4.4); Hematocrit 40.2 % (39.6-49.0); Hemoglobin 12.9 g/dL (13.6-17.9); Lymphocytes % 22.1 % (15.3-44.8); MCH 29.2 pg (27.0-35.0); MCV 91.2 fL (80-100); MPV 9.4 fL (7.6-11.3); Monocytes % 7.7 % (3.3-12.3); Neutrophils % 68.3 % (41.7-73.7); Platelets 136 thou/uL (152-406); RBC Red Blood Cell Count 4.41 M/uL (4.33-5.43); Red Cell Distribution Width 14.1 % (12.1-15.2)
[2024-06-01 12:30] LABS: Albumin 3.4 g/dL (3.4-5.0); Anion Gap 14.4 mEq/L (5.0-15.0); Bilirubin Direct 0.2 mg/dL (0-0.2); Bilirubin Indirect, Calculated 0.3 mg/dL (0.2-0.8); Bilirubin Total 0.5 mg/dL (0.2-1.0); Globulin 3.3 g/dL (2.3-3.5); Magnesium 2.3 mg/dL (1.6-2.4); Potassium 5.4 mEq/L (3.5-5.1); Protein, Total 6.7 g/dL (6.4-8.2)
--- NOTE | 2024-06-01 12:44 | RAD REPORT ---
EXAMINATION: ONE VIEW CHEST XR CLINICAL INDICATION: Male, 78 years old.weakness TECHNIQUE: 1 View, AP supine, X-ray of the chest was performed. [id number]. COMPARISON: 11/15/2023 FINDINGS: Lungs and pleura: Chronically elevated left hemidiaphragm with likely underlying atelectasis. Lungs a re otherwise clear. Heart and mediastinum: Normal heart size. Unremarkable mediastinal contours. Osseous structures: No acute abnormality. Tubes/lines: None Other: None. IMPRESSION: No acute intrathoracic abnormality. Chronic left hemidiaphragm elevation.
--- NOTE | 2024-06-01 13:20 | ER ---
Nurse's Notes [facility] Name: Arun Mccall Age: 78 yrs Sex: Male : 1945 Arrival Date: 06/01/2024 Time: 11:25 Bed 16 Private MD: Diagnosis: Acute on chronic renal failure, hyperkalemia, generalized weakness Presentation: 06/01 11:31 Chief complaint: EMS states: "toned out for being weak for 3 days, no access to food or mb9 water. Pt states his bilateral feet and hands are feeling numb as well. BGL 76 and 20 g right FA.". Coronavirus screen: Vaccine status: Patient reports receiving the 2nd dose of the covid vaccine. Ebola Screen: No symptoms or risks identified at this time. Initial Sepsis Screen: Does the patient meet any 2 criteria? No. Patient's initial sepsis screen is negative. Does the patient have a suspected source of infection? No. Patient's initial sepsis screen is negative. Risk Assessment: Do you want to hurt yourself or someone else? Patient reports no desire to harm self or others. Onset of symptoms was June 01, 2024. 11:31 Acuity: CHAYITO 3 mb9 11:31 Method Of Arrival: EMS: [facility] mb9 Triage Assessment: 11:37 General: Appears in no apparent distress. Behavior is calm, cooperative. Pain: Denies mb9 pain. EENT: No signs and/or symptoms were reported regarding the EENT system. Neuro: Gates Agitation-Sedation Scale (RASS): 0 - Alert and Calm Level of Consciousness is awake, alert, obeys commands, Oriented to person, place, time, situation, Appropriate for age Reports numbness in right hand, left hand, right foot and left foot. Cardiovascular: Patient's skin is warm and dry. Respiratory: Airway is patent Respiratory effort is even, unlabored, Respiratory pattern is regular, symmetrical. GI: Abdomen is round non-distended, Bowel sounds present X 4 quads. Abd is soft and non tender X 4 quads. Reports diarrhea, nausea. : No signs and/or symptoms were reported regarding the genitourinary system. Derm: Skin is pink, warm \\T\\ dry. Musculoskeletal: Range of motion: intact in all extremities. Historical: - Allergies: 11:37 fenofibrate nanocrystallized; mb9 11:37 insulin degludec; mb9 - Home Meds: 11:37 Metoprolol Tartrate Oral [Active]; mb9 - PMHx: 11:37 Anxiety; Diabetes - IDDM; Diverticulitis; hemroids; HLD; Hypertension; mb9 - PSHx: 11:37 colon sx; mb9 - Immunization history:: Adult Immunizations up to date. - Infectious Disease History:: Denies. - Social history:: Smoking status: Patient denies any tobacco usage or history of. Screenin:[address] [facility] ED Fall Risk Assessment (Adult) History of falling in the last 3 months, mb9 including since admission No falls in past 3 months (0 pts) Confusion or Disorientation No (0 pts) Intoxicated or Sedated No (0 pts) Impaired Gait No (0 pts) Mobility Assist Device Used No (0 pt) Altered Elimination No (0 pt) Score/Fall Risk Level 0 - 2 = Low Risk Oriented to surroundings, Maintained a safe environment, Educated pt \\T\\ family on fall prevention, incl call for assistance when getting out of bed. Abuse screen: Denies threats or abuse. Nutritional screening: No deficits noted. Tuberculosis screening: No symptoms or risk factors identified. Assessment: 11:39 Reassessment: see triage assessment. mb9 12:45 Reassessment: No changes from previously documented assessment. Patient and/or family mb9 updated on plan of care and expected duration. Pain level reassessed. Patient is alert, oriented x 3, equal unlabored respirations, skin warm/dry/pink. 12:59 Reassessment: pt requesting to use the phone, wants to contact [facility] about his iw missing wallet. 14:00 Reassessment: No changes from previously documented assessment. Patient and/or family mb9 updated on plan of care and expected duration. Pain level reassessed. Patient is alert, oriented x 3, equal unlabored respirations, skin warm/dry/pink. Vital Signs: 11:31 BP 153 / 79; Pulse 67; Resp 16; Temp 98; Pulse Ox 100% ; Weight 83.91 kg; Height 5 ft. mb9 11 in. ; 13:00 BP 159 / 82; Pulse 72; Resp 16; Pulse Ox 99% on R/A; mb9 14:34 BP 168 / 78; Pulse 68; Resp 18; Pulse Ox 100% on R/A; mb9 11:31 Body Mass Index 25.80 (83.91 kg, 180.34 cm) mb9 ED Course: 11:31 Patient arrived in ED. mb9 11:31 Elisha Myles MD is Attending Physician. sp3 11:31 Arm band placed on. mb9 11:37 Triage completed. mb9 11:38 Maintain EMS IV. Dressing intact. Good blood return noted. Site clean \\T\\ dry. Gauge \\T\\ mb 9 site: 20 g right FA. Flushed with 10 mL NS. 11:39 Placed in gown. Bed in low position. Call light in reach. Side rails up X 1. Provided mb9 Education on: press call light if needing anything. Client placed on continuous cardiac and pulse oximetry monitoring. NIBP monitoring applied. 11:47 Noy Harrison, ASTRID is Primary Nurse. mb9 12:04 Initial lab(s) drawn, by me, sent to lab. EKG done, by ED staff, reviewed by Elisha Myles MD. 12:05 No provider procedures requiring assistance completed. mb9 12:35 XRAY Chest (1 view) In Process Unspecified. EDMS 13:19 Kem Boswell is Hospitalizing Provider. sp3 14:34 Patient transferred, IV remains in place. mb9 Administered Medications: 12:03 Drug: NS 0.9% IV 500 ml IV at bolus once; to be given as a bolus over 30 minutes Route: mb9 IV; Rate: bolus; Site: right forearm; 13:03 Follow up: Response: No adverse reaction; IV Status: Completed infusion mb9 13:50 Drug: Calcium Gluconate IVPB 2 grams IVPB once over 60 mins; (mix in NS 100 mL) Route: mb9 IVPB; Infused Over: 60 mins; Site: right forearm; 14:34 Follow up: Response: No adverse reaction; IV Status: Completed infusion mb9 13:50 Drug: Kayexalate PO 30 grams PO once Route: PO; mb9 14:34 Follow up: Response: No adverse reaction mb9 Medication: 11:39 VIS not applicable for this client. mb9 Outcome: 13:20 Decision to Hospitalize by Provider. sp3 14:39 Admitted to Med/surg accompanied by tech, via wheelchair, room 222, mb9 14:39 Condition: stable 14:39 Instructed on the need for admit, 14:40 Patient left the ED. mb9 Signatures: Dispatcher [employer] Patrizia Sanchez RN RN iw Patel, Setul, MD MD sp3 Noy Harrison RN RN mb9
--- NOTE | 2024-06-01 13:20 | EDPHYS ---
Physician Documentation [facility] Name: Arun Mccall Age: 78 yrs Sex: Male : 1945 Arrival Date: 06/01/2024 Time: 11:25 Bed 16 Private MD: ED Physician Elisha Myles HPI: 06/01 11:54 This 78 yrs old Male presents to ER via EMS with complaints of General Weakness. sp3 11:54 78-year-old male with a history of diabetes, hypertension, hyperlipidemia, anxiety, sp3 history of renal failure not on current dialysis now presents to the ED by EMS for generalized weakness. Patient is living in a local hotel states he is having problems with the hotel welt maker which is "stressing him out". Patient denies any pain, headache, fever, shortness of breath, cough, abdominal pain, vomiting, diarrhea, syncope, or any other signs or symptoms on ROS at this time. He states he is just "really weak".. Historical: - Allergies: 11:37 fenofibrate nanocrystallized; mb9 11:37 insulin degludec; mb9 - Home Meds: 11:37 Metoprolol Tartrate Oral [Active]; mb9 - PMHx: 11:37 Anxiety; Diabetes - IDDM; Diverticulitis; hemroids; HLD; Hypertension; mb9 - PSHx: 11:37 colon sx; mb9 - Immunization history:: Adult Immunizations up to date. - Infectious Disease History:: Denies. - Social history:: Smoking status: Patient denies any tobacco usage or history of. ROS: 11:55 Constitutional: Negative for fever, chills, and weight loss, Eyes: Negative for injury, sp3 pain, redness, and discharge, ENT: Negative for injury, pain, and discharge, Neck: Negative for injury, pain, and swelling, Cardiovascular: Negative for chest pain, palpitations, and edema, Respiratory: Negative for shortness of breath, cough, wheezing, and pleuritic chest pain, Abdomen/GI: Negative for abdominal pain, nausea, vomiting, diarrhea, and constipation, Back: Negative for injury and pain, MS/Extremity: Negative for injury and deformity, Skin: Negative for injury, rash, and discoloration, Neuro: Negative for headache, weakness, numbness, tingling, and seizure, Psych: Negative for depression, anxiety, suicide ideation, homicidal ideation, and hallucinations, Allergy/Immunology: Negative for hives, rash, and allergies, Endocrine: Negative for neck swelling, polydipsia, polyuria, polyphagia, and marked weight changes, 11:55 All other systems are negative, Exam: 11:55 Constitutional: This is a well developed, well nourished patient who is awake, alert, sp3 and in no acute distress. Head/Face: Normocephalic, atraumatic. Eyes: Pupils equal round and reactive to light, extra-ocular motions intact. Lids and lashes normal. Conjunctiva and sclera are non-icteric and not injected. Cornea within normal limits. Periorbital areas with no swelling, redness, or edema. ENT: Nares patent. No nasal discharge, no septal abnormalities noted. External auditory canals are clear. Oropharynx with no redness, swelling, or masses, exudates, or evidence of obstruction, uvula midline. Mucous membranes moist. Neck: Trachea midline, no thyromegaly or masses palpated, and no cervical lymphadenopathy. Supple, full range of motion without nuchal rigidity, or vertebral point tenderness. No Meningismus. Chest/axilla: Normal chest wall appearance and motion. Nontender with no deformity. No lesions are appreciated. Cardiovascular: Regular rate and rhythm with a normal S1 and S2. No gallops, murmurs, or rubs. Normal PMI, no JVD. No pulse deficits. Respiratory: Lungs have equal breath sounds bilaterally, clear to auscultation and percussion. No rales, rhonchi or wheezes noted. No increased work of breathing, no retractions or nasal flaring. Abdomen/GI: Soft, non-tender, with normal bowel sounds. No distension or tympany. No guarding or rebound. No evidence of tenderness throughout. Back: No spinal tenderness. No costovertebral tenderness. Full range of motion. Skin: Warm, dry with normal turgor. Normal color with no rashes, no lesions, and no evidence of cellulitis. MS/ Extremity: Pulses equal, no cyanosis. Neurovascular intact. Full, normal range of motion. Neuro: Awake and alert, GCS 15, oriented to person, place, time, and situation. Cranial nerves II-XII grossly intact. Motor strength 5/5 in all extremities. Sensory grossly intact. Cerebellar exam normal. Normal gait. Psych: Awake, alert, with orientation to person, place and time. Behavior, mood, and affect are within normal limits. 12:02 ECG was reviewed by the Attending Physician. EKG demonstrates normal sinus rhythm at 62 sp3 bpm with normal intervals, incomplete right bundle branch block marked sinus arrhythmia with nonspecific diffuse ST/T changes without evidence of acute ischemia. Vital Signs: 11:31 BP 153 / 79; Pulse 67; Resp 16; Temp 98; Pulse Ox 100% ; Weight 83.91 kg; Height 5 ft. mb9 11 in. ; 13:00 BP 159 / 82; Pulse 72; Resp 16; Pulse Ox 99% on R/A; mb9 14:34 BP 168 / 78; Pulse 68; Resp 18; Pulse Ox 100% on R/A; mb9 11:31 Body Mass Index 25.80 (83.91 kg, 180.34 cm) mb9 MDM: 11:41 Medical Screening Exam initiated sp3 11:55 Data reviewed: vital signs, nurses notes, old medical records, lab test result(s), EKG, sp3 radiologic studies. ED course: 78-year-old male with difficult social situation and PMH above now with generalized weakness. Patient symptoms are very vague. Differential diagnosis is broad includes dehydration, potential infection, and to a lesser degree ACS rather concerning pathology. Workup will be broad and include EKG, chest x-ray, labs, UA, and supportive care with IV fluids and general support. Disposition pending workup and patient course. . 06/01 11:42 Order name: Basic Metabolic Panel; Complete Time: 12:47 sp3 06/01 11:42 Order name: CBC with Diff; Complete Time: 12:47 sp3 06/01 11:42 Order name: LFT's; Complete Time: 12:47 sp3 06/01 11:42 Order name: Magnesium; Complete Time: 12:47 sp3 06/01 11:42 Order name: NT PRO-BNP; Complete Time: 12:47 sp3 06/01 11:42 Order name: Troponin HS; Complete Time: 12:47 sp3 06/01 11:42 Order name: Lactate w/ 2H reflex if indic.; Complete Time: 12:47 sp3 06/01 11:42 Order name: UAM sp3 06/01 13:28 Order name: Basic Metabolic Panel EDMS 06/01 13:28 Order name: Basic Metabolic Panel EDMS 06/01 13:28 Order name: Basic Metabolic Panel EDMS 06/01 13:28 Order name: Basic Metabolic Panel EDMS 06/01 13:28 Order name: Basic Metabolic Panel EDMS 06/01 13:28 Order name: CBC with Automated Diff EDMS 06/01 13:28 Order name: CBC with Automated Diff EDMS 06/01 13:28 Order name: Magnesium EDMS 06/01 13:29 Order name: Magnesium EDMS 06/01 13:29 Order name: Magnesium EDMS 06/01 13:29 Order name: Magnesium EDMS 06/01 13:29 Order name: Phosphorus EDMS 06/01 13:29 Order name: Phosphorus EDMS 06/01 13:29 Order name: Phosphorus EDMS 06/01 13:29 Order name: Phosphorus EDMS 06/01 13:29 Order name: Troponin High Sensitivity EDMS 06/01 13:29 Order name: Troponin High Sensitivity EDMS 06/01 13:29 Order name: Troponin High Sensitivity EDMS 06/01 11:42 Order name: XRAY Chest (1 view); Complete Time: 12:47 sp3 06/01 13:28 Order name: CONS Physician Consult EDMS 06/01 13:28 Order name: Social Service Consult EDMS 06/01 11:42 Order name: Cardiac monitoring; Complete Time: 12:04 sp3 06/01 11:42 Order name: EKG - Nurse/Tech; Complete Time: 12:04 sp3 06/01 11:42 Order name: IV Saline Lock; Complete Time: 12:04 sp3 06/01 11:42 Order name: Labs collected and sent; Complete Time: 12:04 sp3 06/01 11:42 Order name: O2 Per Protocol; Complete Time: 12:04 sp3 06/01 11:42 Order name: O2 Sat Monitoring; Complete Time: 12:04 sp3 Administered Medications: 12:03 Drug: NS 0.9% IV 500 ml IV at bolus once; to be given as a bolus over 30 minutes Route: mb9 IV; Rate: bolus; Site: right forearm; 13:03 Follow up: Response: No adverse reaction; IV Status: Completed infusion mb9 13:50 Drug: Calcium Gluconate IVPB 2 grams IVPB once over 60 mins; (mix in NS 100 mL) Route: mb9 IVPB; Infused Over: 60 mins; Site: right forearm; 14:34 Follow up: Response: No adverse reaction; IV Status: Completed infusion mb9 13:50 Drug: Kayexalate PO 30 grams PO once Route: PO; mb9 14:34 Follow up: Response: No adverse reaction mb9 Disposition Summary: 06/01/24 13:20 Hospitalization Ordered Notes: Hospitalization Status: Observation sp3 Provider: Kem Boswell sp3 Location: Telemetry/MedSurg (observation) sp3 Condition: Stable sp3 Problem: an acute exacerbation sp3 Symptoms: have worsened sp3 Bed/Room Type: Standard sp3 Room Assignment: 222(06/01/24 13:52) eb Diagnosis - Acute on chronic renal failure, hyperkalemia, generalized weakness sp3 Forms: - Medication Reconciliation Form sp3 - SBAR form sp3 - Leadership Thank You Letter sp3 Signatures: Dispatcher [employer] EDMS Rand Stoddard Setul, MD MD sp3 Noy Harrison RN RN mb9 Corrections: (The following items were deleted from the chart) 11:42 11:42 Urinalysis W/Microscopic+U.LAB.BRZ ordered. EDMS EDMS 13:52 13:20 sp3 eb 13:52 13:52 211 eb eb
--- NOTE | 2024-06-01 13:29 | P.HP ---
Certification for Inpatient Patient admitted to: Observation With expected LOS: <2 Midnights Patient will require the following post-hospital care: None Practitioner: I am a practitioner with admitting privileges, knowledge of patient current condition, hospital course, and medical plan of care. Services: Services provided to patient in accordance with Admission requirements found in Title 42 Section 412.3 of the Code of Federal Regulations <Trista Catalan - Last Filed: 06/01/24 13:58> Patient History Date of Service: 06/01/24 Reason for admission: Acute on chronic kidney disease, hyperkalemia History of Present Illness: Arun Mccall is a 78-year-old male with past medical history of hypertension, hyperlipidemia, diabetes mellitus, anxiety, diverticulitis, chronic kidney disease who presents to the ED with generalized weakness. While in the ED his labs showed hyperkalemia, hypoglycemia, and chronic kidney disease. On examination he is complaining of abdominal discomfort and needing to urinate. Will perform bladder scan, and consult nephrology. Of note, Arun does live in the hotel. Unclear if he is able to attend doctor visits. Laboratory evaluation BUN/creatinine 49/3.1, GFR 20, serum glucose 73, potassium 5.4, CO2 20, UA pending Chest x-ray reports "No acute intrathoracic abnormality. Chronic left he midiaphragm elevation." Arun will be admitted to hospitalist service for further evaluation and treatment of CKD with hyperkalemia, Nephrology consulted. - Past Medical/Surgical History Diabetic: Yes -: DM II -: HTN -: CKD III with Proteinuria -: colon surgery - Family History Father -: Heart disease - Social History Alcohol use: No CD- Drugs: No Caffeine use: Yes <Trista Catalan - Last Filed: 06/01/24 13:58> Date of Service: 06/01/24 <sangeeta jeffers - Last Filed: 06/01/24 17:20> Allergies fenofibrate nanocrystallized [From Tricor] Allergy (Mild, Verified 11/29/22 20:51) Unknown insulin degludec [From Tresiba FlexTouch U-100] Adverse Reaction (Intermediate, Verified 11/29/22 20:51) Anaphylaxis Home Medications: Metoprolol Tartrate 50 mg PO BID #60 tab 01/09/23 Aspirin [Aspirin EC 81 MG] 81 mg PO DAILY #30 tab 11/16/23 Review of Systems General: Weakness <Trista Catalan - Last Filed: 06/01/24 13:58> Physical Examination - Physical Exam General: Alert, In no apparent distress, Oriented x3 HEENT: Atraumatic, PERRLA Neck: Supple, 2+ carotid pulse no bruit, JVD not distended Respiratory: Clear to auscultation bilaterally, Normal air movement Cardiovascular: Normal pulses, Regular rate/rhythm, Normal S1 S2 Capillary refill: <2 Seconds Gastrointestinal: Normal bowel sounds, Soft and benign Musculoskeletal: No clubbing Integumentary: No rashes Neurological: Normal speech, Normal tone - Studies Laboratory Data (last 24 hrs) 06/01/24 06/01/24 11:59 11:59 WBC 4.40 Hgb 12.9 L Hct 40.2 Plt Count 136 L Sodium 136 Potassium 5.4 H BUN 49 H Creatinine 3.10 H Glucose 73 L Magnesium 2.3 Total Bilirubin 0.5 AST 22 ALT 27 Alkaline Phosphatase 60 <Trista Catalan - Last Filed: 06/01/24 13:58> - Studies Laboratory Data (last 24 hrs) 06/01/24 06/01/24 11:59 11:59 WBC 4.40 Hgb 12.9 L Hct 40.2 Plt Count 136 L Sodium 136 Potassium 5.4 H BUN 49 H Creatinine 3.10 H Glucose 73 L Magnesium 2.3 Total Bilirubin 0.5 AST 22 ALT 27 Alkaline Phosphatase 60 <sangeeta jeffers - Last Filed: 06/01/24 17:20> Assessment and Plan - Plan Assessment and Plan Acute on chronic kidney disease Hyperkalemia -BUN/creatinine 49/3.1, GFR 20, potassium 5.4 -Calcium and Kayexalate given in the ED -Nephrology consulted, [facility] recommended to treat potassium -BMP at 8 PM -Gentle IV fluids -Continuous telemetry Diabetes mellitus with hypoglycemia -Accu-Chek with sliding scale insulin -Serum glucose 73 -Hypoglycemia protocol in place Hypertension Hyperlipidemia Anxiety -Continue home medication DVT PPx SCD Full code LOS 24-hour ops Plan to discharge in: 24 Hours - Advance Directives Does patient have a Living Will: No Does patient have a Durable POA for Healthcare: No <Trista Catalan - Last Filed: 06/01/24 13:58> - Plan Patient seen and examined. Plan of care discussed with Ms. Catalan. Patient noted to have hypoglycemia. Acute on chronic kidney disease with hyperkalemia. Plan: IV dextrose infusion. Obtain CT abdomen pelvis to assess for obstructive uropathy Insert Quezada catheter, obtain urinalysis. Kayexalate given in the ED. Recheck BMP Hypoglycemia protocol. <sangeeta jeffers - Last Filed: 06/01/24 17:20>
[2024-06-01] MEDS ORDERED: SOD POLYSTYREN SUL 15 GM/60 ML UCUP ONE (13:30)
[2024-06-01] MEDS ORDERED: CALCIUM GLUCONATE 1 GM IVPB 2 GM/100 ML BAG IV ONE (13:32)
[2024-06-01] MEDS: NA CHLORIDE 0.9% 1,000 ML IV SCH (14:00)
[2024-06-01] MEDS ORDERED: D50W 25 GM/50 ML SYRINGE IV PRN (14:14)
[2024-06-01] MEDS ORDERED: GLUCAGON 1 MG/VIAL IV PRN (14:14)
[2024-06-01] MEDS: INSULIN REGULAR (HUMAN) 100 UNIT/ML SQ SCH (16:30)
[2024-06-01 18:05] VITALS: BMI 25.7
--- NOTE | 2024-06-01 18:43 | RAD REPORT ---
EXAMINATION: CT ABDOMEN AND PELVIS WITHOUT CONTRAST CLINICAL INDICATION: Male, 78 years old.Assess for obstructive uropathy/hydronephrosis TECHNIQUE: CT abdomen and pelvis was performed, without IV contrast, as per department protocol. Axia l, sagittal and coronal reconstructions were obtained. One or more of the following dose reduction techniques were used: Automated exposure control, adjustment of the mA and/or kV according to the pat ient size, and/or iterative reconstruction. Unless otherwise specified, incidental findings do not require dedicated imaging follow-up. [id number]. IV CONTRAST: Not administered. COMPARISON: 01/26/2023 FINDINGS: The lack of intravenous contrast limits the sensitivity of this exam for evaluation of solid visceral organs, vascular structures, and retroperitoneum. LOWER CHEST: Multivessel coronary artery disease. Similar elevated left hemidiaphragm. LIVER: Normal in size and contour. No focal lesion. GALLBLADDER/BILE DUCTS: No biliary ductal dilatation.? PANCREAS: No mass, ductal dilation, or martha-pancreatic fluid. SPLEEN: Normal size. No focal lesion. ADRENALS: Normal; no mass. KIDNEYS AND URETERS: Bilateral renal lesions which are either benign in appearance or too small to ac curately characterize but statistically benign. Bilateral renal cortical thinning. Nodular Javier left kidney. URINARY BLADDER: Normal contour. GASTROINTESTINAL TRACT: Stomach is non-dilated. Small bowel has normal course and caliber. No colonic wall thickening or pericolonic inflammatory changes. PERITONEUM: No free fluid. ABDOMINAL AORTA AND OTHER VESSELS: Normal caliber aorta and IVC. Atherosclerosis. REPRODUCTIVE ORGANS: No pathologic process. MUSCULOSKELETAL: No acute or suspicious osseous abnormality. Multilevel degenerative changes are pres ent in the spine. ADDITIONAL FINDINGS: None. IMPRESSION: No acute or significant abnormalities in the abdomen or pelvis, with evaluation limited by lack of IV contrast.
[2024-06-01] MEDS: DEXTROSE 10%-WATER 500 ML IV SCH (19:58)
[2024-06-01 22:53] LABS: Troponin High Sensitivity 22.8 pg/mL (<58.9)
[2024-06-02 00:01] LABS: Specific Gravity 1.015 (1.005-1.030); Sqamous Epithelial None Seen /HPF (None Seen); Urine Bacteria None Seen /HPF (<20); Urine Bilirubin NEGATIVE (Negative); Urine Blood Negative (Negative); Urine Clarity Clear (Clear); Urine Color Light-Yellow (Yellow); Urine Culture Reflex Order NOT NEEDED; Urine Glucose NEGATIVE (Negative); Urine Ketones 1+ (Negative); Urine Micro Reflex YN NO BILL MICROSCOPIC; Urine Nitrite NEGATIVE (Negative); Urine Protein 2+ (Negative); Urine RBC None Seen /HPF (None Seen); Urine Urobilinogen Normal (Normal); Urine WBC <5 /HPF (<5); Urine pH 5.5 (5.0-7.0)
[2024-06-02 04:35] LABS: Absolute Eosinophils 0.1 K/uL (0-0.5); Absolute Lymphocytes (CBC) 1.1 K/uL (0.7-4.9); Absolute Monocytes 0.6 K/uL (0.1-1.3); Absolute Neutrophil 3.9 K/uL (1.8-8.0); Basophils % 0.6 % (0-1.3); Eosinophils % 1.3 % (0-4.4); Hematocrit 34.8 % (39.6-49.0); Hemoglobin 11.3 g/dL (13.6-17.9); Lymphocytes % 19.2 % (15.3-44.8); MCH 28.9 pg (27.0-35.0); MCHC 32.5 g/dL (32.0-36.0); MPV 9.3 fL (7.6-11.3); Monocytes % 9.8 % (3.3-12.3); Neutrophils % 69.1 % (41.7-73.7); Platelets 131 thou/uL (152-406); RBC Red Blood Cell Count 3.91 M/uL (4.33-5.43); Red Cell Distribution Width 14.1 % (12.1-15.2)
[2024-06-02 04:41] LABS: Anion Gap 13.4 mEq/L (5.0-15.0); Magnesium 1.9 mg/dL (1.6-2.4); Phosphorus 3.7 mg/dL (2.5-4.9); Potassium 4.4 mEq/L (3.5-5.1)
[2024-06-02] MEDS: PNEUMOCOCCAL VACCINE 0.5 ML IMVAC ONE (08:09)
[2024-06-02] MEDS: FLU (Fluarix Triv) TS24-25(6MOS UP)/PF 45 MCG/0.5 ML Syringe IM ONE (08:10)
--- NOTE | 2024-06-02 10:53 | P.CNS ---
Date of Consult: 06/02/24 Reason for Consult: DANIEL/ CKD Requesting Physician: sangeeta jeffers Chief Complaint: Acute on chronic kidney disease, hyperkalemia History of Present Illness: Arun Mccall is a 78-year-old male with past medical history of hypertension, hyperlipidemia, diabetes mellitus, anxiety, diverticulitis, chronic kidney disease who presents to the ED with generalized weakness. While in the ED his labs showed hyperkalemia, hypoglycemia, and chronic kidney disease. On examination he is complaining of abdominal discomfort and needing to urinate. Will perform bladder scan, and consult nephrology. Of note, Arun does live in the hotel. Unclear if he is able to attend doctor visits. Laboratory evaluation BUN/creatinine 49/3.1, GFR 20, serum glucose 73, potassium 5.4, CO2 20, UA pending Chest x-ray reports "No acute intrathoracic abnormality. Chronic left hemidiaphragm elevation." Arun will be admitted to hospitalist service for further evaluation and treatment of CKD with hyperkalemia, Nephrology consulted. 11:54 This 78 yrs old Male presents to ER via EMS with complaints of General Weakness. sp3 11:54 78-year-old male with a history of diabetes, hypertension, hyperlipidemia, anxiety, sp3 history of renal failure not on current dialysis now presents to the ED by EMS for generalized weakness. 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 Patient denies any pain, headache, fever, shortness of breath, cough, abdominal pain, vomiting, diarrhea, syncope, or any other signs or symptoms on ROS at this time. He states he is just "really weak". Allergies fenofibrate nanocrystallized [From Tricor] Allergy (Mild, Verified 11/29/22 20:51) Unknown insulin degludec [From Tresiba FlexTouch U-100] Adverse Reaction (Intermediate, Verified 11/29/22 20:51) Anaphylaxis Home medications list reviewed: Yes Home Medications: Metoprolol Tartrate 50 mg PO BID #60 tab 01/09/23 Aspirin [Aspirin EC 81 MG] 81 mg PO DAILY #30 tab 11/16/23 - Past Medical/Surgical History Diabetic: Yes -: DM II -: HTN -: CKD IV with Proteinuria (Dr. Atkinson/ [facility]war) -: colon surgery - Family History Father Medical History: Heart disease - Social History Smoking Status: Unknown if ever smoked Alcohol use: No CD- Drugs: No Caffeine use: Yes Place of Residence: Homeless Review of Systems 10-point ROS is otherwise unremarkable General: Weakness, Malaise Physical Examination Temp Pulse Resp BP Pulse Ox 98.6 F 60 18 136/57 L 96 06/02/24 08:00 06/02/24 08:00 06/02/24 08:00 06/02/24 08:00 06/02/24 08:00 General: In no apparent distress, Oriented x3, Cooperative HEENT: Atraumatic Neck: Supple Respiratory: Clear to auscultation bilaterally Cardiovascular: No edema, Regular rate/rhythm Gastrointestinal: Soft and benign, Non-distended Musculoskeletal: No clubbing, No contractures Integumentary: No rashes, No cyanosis Neurological: Normal speech Laboratory Data (last 24 hrs) 06/01/24 06/01/24 11:59 11:59 WBC 4.40 Hgb 12.9 L Hct 40.2 Plt Count 136 L Sodium 136 Potassium 5.4 H BUN 49 H Creatinine 3.10 H Glucose 73 L Magnesium 2.3 Total Bilirubin 0.5 AST 22 ALT 27 Alkaline Phosphatase 60 Imagings Data: EXAMINATION: CT ABDOMEN AND PELVIS WITHOUT CONTRAST CLINICAL INDICATION: Male, 78 years old.Assess for obstructive uropathy/hydronephrosis IV CONTRAST: Not administered. COMPARISON: 01/26/2023 FINDINGS: The lack of intravenous contrast limits the sensitivity of this exam for evaluation of solid visceral organs, vascular structures, and retroperitoneum. LOWER CHEST: Multivessel coronary artery disease. Similar elevated left hemidiaphragm. LIVER: Normal in size and contour. No focal lesion. GALLBLADDER/BILE DUCTS: No biliary ductal dilatation.? PANCREAS: No mass, ductal dilation, or martha-pancreatic fluid. SPLEEN: Normal size. No focal lesion. ADRENALS: Normal; no mass. KIDNEYS AND URETERS: Bilateral renal lesions which are either benign in appearance or too small to accurately characterize but statistically benign. Bilateral renal cortical thinning. Nodular Javier left kidney. URINARY BLADDER: Normal contour. GASTROINTESTINAL TRACT: Stomach is non-dilated. Small bowel has normal course and caliber. No colonic wall thickening or pericolonic inflammatory changes. PERITONEUM: No free fluid. ABDOMINAL AORTA AND OTHER VESSELS: Normal caliber aorta and IVC. Atherosclerosis. REPRODUCTIVE ORGANS: No pathologic process. MUSCULOSKELETAL: No acute or suspicious osseous abnormality. Multilevel degenerative changes are present in the spine. ADDITIONAL FINDINGS: None. IMPRESSION: No acute or significant abnormalities in the abdomen or pelvis, with evaluation limited by lack of IV contrast. EXAMINATION: ONE VIEW CHEST XR CLINICAL INDICATION: Male, 78 years old.weakness TECHNIQUE: 1 View, AP supine, X-ray of the chest was performed. [id number]. COMPARISON: 11/15/2023 FINDINGS: Lungs and pleura: Chronically elevated left hemidiaphragm with likely underlying atelectasis. Lungs are otherwise clear. Heart and mediastinum: Normal heart size. Unremarkable mediastinal contours. Osseous structures: No acute abnormality. Tubes/lines: None Other: None. IMPRESSION: No acute intrathoracic abnormality. Chronic left hemidiaphragm elevation. EXAM DESCRIPTION: US - Renal Ultrasound-Complete - 01/08/2023 3:21 pm CLINICAL HISTORY: Worsening renal function/abdominal pain COMPARISON: November 2002 FINDINGS: The right kidney measures 9 cm with a borderline increased echotexture The left kidney measures 9 cm with a borderline increased echotexture On today's exam, the cysts appear simple. Largest is present within the right kidney measuring 2 centimeters Hydronephrosis is not seen. No gross abnormality of bladder is noted IMPRESSION: No hydronephrosis 12-01-22 LEFT VENTRICULAR WALL MOTION: NORMAL. DOPPLER/COLOR FLOW: SEE BELOW. COMMENTS: NORMAL EJECTION FRACTION 55-60% NORMAL WALL MOTION MILD MITRAL REGURGITATION Conclusions/Impression: Stage I DANIEL may be due to hypovolemia CKD IV with Proteinuria -No NSAIDs -Gentle hydration Hyperkalemia -resolved Metabolic Acidosis -Start oral bicarb Hypercalcemia -resolved HTN with CKD -Restart Metoprolol BID DM II with CKD -RISS Anemia in chronic illness -Monitor H&H Hospitalist and ER notes reviewed Case reviewed with hospitalist team Thank you kindly for the consultation
--- NOTE | 2024-06-02 12:14 | EKG ---
Test Date: 2024-06-01 Test Time: 11:55:33 Aerobics Teacher: MB MEASUREMENT RESULTS: Intervals: Rate: 62 NE: 190 QRSD: 124 QT: 432 QTc: 438 [place]: P: 23 NE: 190 QRS: -27 T: 15 INTERPRETIVE STATEMENTS: Sinus rhythm with marked sinus arrhythmia Right bundle branch block Possible Inferior infarct, age undetermined Cannot rule out Anterior infarct, age undetermined Abnormal ECG Compared to ECG 11/15/2023 23:03:27 Right bundle-branch block now present Myocardial infarct finding now present Left-axis deviation no longer present Left ventricular hypertrophy no longer present Electronically Signed On 06-02-24 12:13:10 CREDIT ANALYST by Macho Lazo
--- NOTE | 2024-06-02 13:23 | P.PN ---
Date of Service: 06/02/24 Subjective: No acute events overnight Nephrology following ROS: 10 point ROS as noted above, otherwise negative Physical exam GEN: Alert, oriented, NAD HEENT: Normal conjunctiva, sclera anicteric CV: Regular rate and rhythm, no edema Pulm: Nonlabored respirations on room air ABD: Soft, nontender, nondistended MSK: No joint tenderness Integumentary: No rashes Neuro: Normal speech, normal affect Vitals reviewed Assessment and Plan Acute on chronic kidney disease Hyperkalemia -Renal function improving -Calcium and Kayexalate given in the ED -Nephrology consulted and following -Gentle IV fluids -Continuous telemetry -no hydronephrosis on imaging Diabetes mellitus with hypoglycemia -Accu-Chek with sliding scale insulin -Serum glucose 73 -Hypoglycemia protocol in place Hypertension Hyperlipidemia Anxiety -Continue home medication DVT PPx SCD Full code Plan to discharge in: 24-48 hours
[2024-06-02] MEDS ORDERED: D10W 125 ML IV PRN (16:32)
[2024-06-02] MEDS: SODIUM BICARB 325 MG TAB PO SCH (22:28)
[2024-06-02] MEDS: METOPROLOL TAR 25 MG TAB PO SCH (22:29)
[2024-06-03 04:57] LABS: Anion Gap 9.4 mEq/L (5.0-15.0); Magnesium 1.9 mg/dL (1.6-2.4); Phosphorus 3.6 mg/dL (2.5-4.9); Potassium 4.4 mEq/L (3.5-5.1)
[2024-06-03] MEDS: NA CHLORIDE 0.9% 1,000 ML IV SCH (07:54)
[2024-06-03] MEDS: Ringers Lactate 1,000 ML IV SCH (08:20)
--- NOTE | 2024-06-03 14:08 | P.PN ---
Date of Service: 06/03/24 Subjective: Reports diarrhea last night Nephrology following ROS: 10 point ROS as noted above, otherwise negative Physical exam GEN: Alert, oriented, NAD HEENT: Normal conjunctiva, sclera anicteric CV: Regular rate and rhythm, no edema Pulm: Nonlabored respirations on room air ABD: Soft, nontender, nondistended MSK: No joint tenderness Integumentary: No rashes Neuro: Normal speech, normal affect Vitals reviewed Assessment and Plan Acute on chronic kidney disease Hyperkalemia -Renal function worsened overnight after IV fluids were stopped and patient had diarrhea -Nephrology consulted and following -Started back on gentle IV fluids -no hydronephrosis on imaging -Continue to monitor renal function daily -PT consultation Diabetes mellitus with hypoglycemia -Accu-Chek with sliding scale insulin -Hypoglycemia protocol in place Hypertension Hyperlipidemia Anxiety -Continue home medication DVT PPx SCD Full code Plan to discharge in: 24-48 hours
--- NOTE | 2024-06-03 20:29 | P.PN ---
Date of Service: 06/03/24 Vital Signs Temp Pulse Resp BP Pulse Ox 97.2 F 68 16 140/72 100 06/03/24 16:00 06/03/24 16:00 06/03/24 16:00 06/03/24 16:00 06/03/24 16:00 Medications Glucagon (Glucagon 1 Mg/Vial) 1 mg IV 1X PRN; Protocol PRN Reason: HYPOGLYCEMIA Heparin Sodium (Porcine) (Heparin 5000 Unit/Ml 1 Ml Vial) 5,000 unit SQ Q12HR [facility] [place] Hydralazine HCl (Hydralazine Hcl 20 Mg/Ml Vial) 10 mg IV Q4HP PRN PRN Reason: Goal to achieve SBP in comment Dextrose (Dextrose 10% Water Iv Soln.) 125 mls @ 0 mls/hr IV PRN PRN; Protocol PRN Reason: HYPOGLYCEMIA Lactated Ringer's (Lactated Ringers) 1,000 mls @ 100 mls/hr IV .Q10H [facility] [place] Last Admin: 06/03/24 18:00 Dose: 1,000 mls Insulin Human Regular (Insulin Regular (Human) 100 Unit/Ml) 0 unit SQ ACHS [facility]; Protocol Last Admin: 06/03/24 16:18 Dose: Not Given Metoprolol Tartrate (Metoprolol Tar 25 Mg Tab) 25 mg PO BID [facility] Last Admin: 06/03/24 08:14 Dose: Not Given Sodium Bicarbonate (Sodium Bicarb 325 Mg Tab) 650 mg PO QID [facility] Last Admin: 06/03/24 16:37 Dose: 650 mg Assessment/ Plan: Nephrology No dyspnea No chest pain Reports diarrhea and itching No acute events overnight Vitals, medications, blood work and imaging reviewed in the chart General: In no apparent distress, Oriented x3, Cooperative HEENT: Atraumatic Neck: Supple Respiratory: Clear to auscultation bilaterally Cardiovascular: No edema, Regular rate/rhythm Gastrointestinal: Soft and benign, Non-distended Musculoskeletal: No clubbing, No contractures Integumentary: No rashes, No cyanosis Neurological: Normal speech Laboratory Data (last 24 hrs) 06/01/24 06/01/24 11:59 11:59 WBC 4.40 Hgb 12.9 L Hct 40.2 Plt Count 136 L Sodium 136 Potassium 5.4 H BUN 49 H Creatinine 3.10 H Glucose 73 L Magnesium 2.3 Total Bilirubin 0.5 AST 22 ALT 27 Alkaline Phosphatase 60 Imagings Data: EXAMINATION: CT ABDOMEN AND PELVIS WITHOUT CONTRAST CLINICAL INDICATION: Male, 78 years old.Assess for obstructive uropathy/hydronephrosis IV CONTRAST: Not administered. COMPARISON: 01/26/2023 FINDINGS: The lack of intravenous contrast limits the sensitivity of this exam for evaluation of solid visceral organs, vascular structures, and retroperitoneum. LOWER CHEST: Multivessel coronary artery disease. Similar elevated left hemidiaphragm. LIVER: Normal in size and contour. No focal lesion. GALLBLADDER/BILE DUCTS: No biliary ductal dilatation.? PANCREAS: No mass, ductal dilation, or martha-pancreatic fluid. SPLEEN: Normal size. No focal lesion. ADRENALS: Normal; no mass. KIDNEYS AND URETERS: Bilateral renal lesions which are either benign in appearance or too small to accurately characterize but statistically benign. Bilateral renal cortical thinning. Nodular Javier left kidney. URINARY BLADDER: Normal contour. GASTROINTESTINAL TRACT: Stomach is non-dilated. Small bowel has normal course and caliber. No colonic wall thickening or pericolonic inflammatory changes. PERITONEUM: No free fluid. ABDOMINAL AORTA AND OTHER VESSELS: Normal caliber aorta and IVC. Atherosclerosis. REPRODUCTIVE ORGANS: No pathologic process. MUSCULOSKELETAL: No acute or suspicious osseous abnormality. Multilevel degenerative changes are present in the spine. ADDITIONAL FINDINGS: None. IMPRESSION: No acute or significant abnormalities in the abdomen or pelvis, with evaluation limited by lack of IV contrast. EXAMINATION: ONE VIEW CHEST XR CLINICAL INDICATION: Male, 78 years old.weakness TECHNIQUE: 1 View, AP supine, X-ray of the chest was performed. [id number]. COMPARISON: 11/15/2023 FINDINGS: Lungs and pleura: Chronically elevated left hemidiaphragm with likely underlying atelectasis. Lungs are otherwise clear. Heart and mediastinum: Normal heart size. Unremarkable mediastinal contours. Osseous structures: No acute abnormality. Tubes/lines: None Other: None. IMPRESSION: No acute intrathoracic abnormality. Chronic left hemidiaphragm elevation. EXAM DESCRIPTION: US - Renal Ultrasound-Complete - 01/08/2023 3:21 pm CLINICAL HISTORY: Worsening renal function/abdominal pain COMPARISON: November 2002 FINDINGS: The right kidney measures 9 cm with a borderline increased echotexture The left kidney measures 9 cm with a borderline increased echotexture On today's exam, the cysts appear simple. Largest is present within the right kidney measuring 2 centimeters Hydronephrosis is not seen. No gross abnormality of bladder is noted IMPRESSION: No hydronephrosis 12-01-22 LEFT VENTRICULAR WALL MOTION: NORMAL. DOPPLER/COLOR FLOW: SEE BELOW. COMMENTS: NORMAL EJECTION FRACTION 55-60% NORMAL WALL MOTION MILD MITRAL REGURGITATION Conclusions/Impression: Stage I DANIEL may be due to hypovolemia CKD IV with Proteinuria -No NSAIDs -Change IVF to LR Hyperkalemia -resolved Metabolic Acidosis -Continue oral bicarb Hypercalcemia -resolved HTN with CKD -Continue Metoprolol BID DM II with CKD -RISS Anemia in chronic illness -Monitor H&H Hospitalist and ER notes reviewed Case reviewed with hospitalist team
[2024-06-03] MEDS: HYDRALAZINE HCL 20 MG/ML VIAL IV PRN (21:32)
[2024-06-03] MEDS: HEPARIN 5000 UNIT/ML 1 ML VIAL SQ SCH (21:33)
[2024-06-04 04:48] LABS: Anion Gap 11.9 mEq/L (5.0-15.0); Magnesium 1.8 mg/dL (1.6-2.4); Phosphorus 2.9 mg/dL (2.5-4.9); Potassium 3.9 mEq/L (3.5-5.1); Uric Acid 6.5 mg/dL (3.5-7.2)
--- NOTE | 2024-06-04 08:50 | P.PN ---
Date of Service: 06/04/24 Subjective: Diarrhea slowed, had 2 soft BM overnight Worked well with PT yesterday Renal function improving once again Patient unsure of where he will go at DC at this time ROS: 10 point ROS as noted above, otherwise negative Physical exam GEN: Alert, oriented, NAD HEENT: Normal conjunctiva, sclera anicteric CV: Regular rate and rhythm, no edema Pulm: Nonlabored respirations on room air ABD: Soft, nontender, nondistended MSK: No joint tenderness Integumentary: No rashes Neuro: Normal speech, normal affect Vitals reviewed Assessment and Plan Acute on chronic kidney disease Hyperkalemia -Renal function improved overnight on IV fluids -Diarrhea improved -Nephrology consulted and following -no hydronephrosis on imaging -Continue to monitor renal function daily -PT consultation Diabetes mellitus with hypoglycemia -Accu-Chek with sliding scale insulin -Hypoglycemia protocol in place Hypertension Hyperlipidemia Anxiety -Continue home medication DVT PPx heparin subq Full code Plan to discharge in: 24-48 hours
[2024-06-04 09:13] VITALS: O2SAT 98
[2024-06-04] MEDS: MAGNESIUM SULFATE 1 gm IVPB 1 GM/100 ML BAG IV ONE (11:42)
--- NOTE | 2024-06-04 21:24 | P.PN ---
Date of Service: 06/04/24 Vital Signs Temp Pulse Resp BP Pulse Ox 98.3 F 105 H 17 154/69 H 95 06/04/24 20:00 06/04/24 20:00 06/04/24 20:00 06/04/24 20:00 06/04/24 20:00 Medications Glucagon (Glucagon 1 Mg/Vial) 1 mg IV 1X PRN; Protocol PRN Reason: HYPOGLYCEMIA Heparin Sodium (Porcine) (Heparin 5000 Unit/Ml 1 Ml Vial) 5,000 unit SQ Q12HR [facility] Last Admin: 06/04/24 20:49 Dose: 5,000 unit Hydralazine HCl (Hydralazine Hcl 20 Mg/Ml Vial) 10 mg IV Q4HP PRN PRN Reason: Goal to achieve SBP in comment Last Admin: 06/03/24 21:32 Dose: 10 mg Dextrose (Dextrose 10% Water Iv Soln.) 125 mls @ 0 mls/hr IV PRN PRN; Protocol PRN Reason: HYPOGLYCEMIA Lactated Ringer's (Lactated Ringers) 1,000 mls @ 100 mls/hr IV .Q10H [facility] Last Admin: 06/04/24 12:57 Dose: 1,000 mls Insulin Human Regular (Insulin Regular (Human) 100 Unit/Ml) 0 unit SQ ACHS [facility]; Protocol Last Admin: 06/04/24 20:20 Dose: Not Given Metoprolol Tartrate (Metoprolol Tar 25 Mg Tab) 25 mg PO BID [facility] Last Admin: 06/04/24 20:49 Dose: 25 mg Sodium Bicarbonate (Sodium Bicarb 325 Mg Tab) 650 mg PO QID [facility] Last Admin: 06/04/24 20:49 Dose: 650 mg Assessment/ Plan: Nephrology No dyspnea No chest pain Feeling much better today No acute events overnight Vitals, medications, blood work and imaging reviewed in the chart General: In no apparent distress, Oriented x3, Cooperative HEENT: Atraumatic Neck: Supple Respiratory: Clear to auscultation bilaterally Cardiovascular: No edema, Regular rate/rhythm Gastrointestinal: Soft and benign, Non-distended Musculoskeletal: No clubbing, No contractures Integumentary: No rashes, No cyanosis Neurological: Normal speech Laboratory Data (last 24 hrs) 06/01/24 06/01/24 11:59 11:59 WBC 4.40 Hgb 12.9 L Hct 40.2 Plt Count 136 L Sodium 136 Potassium 5.4 H BUN 49 H Creatinine 3.10 H Glucose 73 L Magnesium 2.3 Total Bilirubin 0.5 AST 22 ALT 27 Alkaline Phosphatase 60 Imagings Data: EXAMINATION: CT ABDOMEN AND PELVIS WITHOUT CONTRAST CLINICAL INDICATION: Male, 78 years old.Assess for obstructive uropathy/hydronephrosis IV CONTRAST: Not administered. COMPARISON: 01/26/2023 FINDINGS: The lack of intravenous contrast limits the sensitivity of this exam for evaluation of solid visceral organs, vascular structures, and retroperitoneum. LOWER CHEST: Multivessel coronary artery disease. Similar elevated left hemidiaphragm. LIVER: Normal in size and contour. No focal lesion. GALLBLADDER/BILE DUCTS: No biliary ductal dilatation.? PANCREAS: No mass, ductal dilation, or martha-pancreatic fluid. SPLEEN: Normal size. No focal lesion. ADRENALS: Normal; no mass. KIDNEYS AND URETERS: Bilateral renal lesions which are either benign in appearance or too small to accurately characterize but statistically benign. Bilateral renal cortical thinning. Nodular Javier left kidney. URINARY BLADDER: Normal contour. GASTROINTESTINAL TRACT: Stomach is non-dilated. Small bowel has normal course and caliber. No colonic wall thickening or pericolonic inflammatory changes. PERITONEUM: No free fluid. ABDOMINAL AORTA AND OTHER VESSELS: Normal caliber aorta and IVC. Atherosclerosis. REPRODUCTIVE ORGANS: No pathologic process. MUSCULOSKELETAL: No acute or suspicious osseous abnormality. Multilevel degenerative changes are present in the spine. ADDITIONAL FINDINGS: None. IMPRESSION: No acute or significant abnormalities in the abdomen or pelvis, with evaluation limited by lack of IV contrast. EXAMINATION: ONE VIEW CHEST XR CLINICAL INDICATION: Male, 78 years old.weakness TECHNIQUE: 1 View, AP supine, X-ray of the chest was performed. [id number]. COMPARISON: 11/15/2023 FINDINGS: Lungs and pleura: Chronically elevated left hemidiaphragm with likely underlying atelectasis. Lungs are otherwise clear. Heart and mediastinum: Normal heart size. Unremarkable mediastinal contours. Osseous structures: No acute abnormality. Tubes/lines: None Other: None. IMPRESSION: No acute intrathoracic abnormality. Chronic left hemidiaphragm elevation. EXAM DESCRIPTION: US - Renal Ultrasound-Complete - 01/08/2023 3:21 pm CLINICAL HISTORY: Worsening renal function/abdominal pain COMPARISON: November 2002 FINDINGS: The right kidney measures 9 cm with a borderline increased echotexture The left kidney measures 9 cm with a borderline increased echotexture On today's exam, the cysts appear simple. Largest is present within the right kidney measuring 2 centimeters Hydronephrosis is not seen. No gross abnormality of bladder is noted IMPRESSION: No hydronephrosis 12-01-22 LEFT VENTRICULAR WALL MOTION: NORMAL. DOPPLER/COLOR FLOW: SEE BELOW. COMMENTS: NORMAL EJECTION FRACTION 55-60% NORMAL WALL MOTION MILD MITRAL REGURGITATION Conclusions/Impression: Stage I DANIEL may be due to hypovolemia CKD IV with Proteinuria -No NSAIDs -Change IVF to LR Hyperkalemia -resolved Metabolic Acidosis -Continue oral bicarb Hypercalcemia -resolved HTN with CKD -Continue Metoprolol BID DM II with CKD -RISS Anemia in chronic illness -Monitor H&H Hospitalist note reviewed Case reviewed with hospitalist team
[2024-06-05 07:24] LABS: Albumin 2.9 g/dL (3.4-5.0); Anion Gap 8.4 mEq/L (5.0-15.0); Phosphorus 3.3 mg/dL (2.5-4.9); Potassium 4.4 mEq/L (3.5-5.1)
[2024-06-05] MEDS: TAMSULOSIN 0.4 MG SR CAP PO SCH (11:15)
[2024-06-05] MEDS: AMLODIPINE 5 MG TAB PO SCH (11:16)
--- NOTE | 2024-06-05 12:17 | P.DS ---
Admission Date: 06/01/24 Discharge Date: 06/05/24 Disposition: ROUTINE DISCHARGE Discharge Condition: GOOD Reason for Admission: Acute on chronic kidney disease, hyperkalemia Consultations: Nephrology- Dr. Atkinson Brief History of Present Illness: Arun Mccall is a 78-year-old male with past medical history of hypertension, hyperlipidemia, diabetes mellitus, anxiety, diverticulitis, chronic kidney disease who presents to the ED with generalized weakness. While in the ED his labs showed hyperkalemia, hypoglycemia, and chronic kidney disease. On examination he is complaining of abdominal discomfort and needing to urinate. Will perform bladder scan, and consult nephrology. Of note, Arun does live in the hotel. Unclear if he is able to attend doctor visits. Laboratory evaluation BUN/creatinine 49/3.1, GFR 20, serum glucose 73, potassium 5.4, CO2 20, UA pending Chest x-ray reports "No acute intrathoracic abnormality. Chronic left hemidiaphragm elevation." Arun will be admitted to hospitalist service for further evaluation and treatment of CKD with hyperkalemia, Nephrology consulted. Hospital Course: Patient was admitted to the hospital for acute kidney injury with initial creatinine of 3.1. His baseline creatinine appears to be around 2.5. He was treated with IV fluids, sodium bicarb and had significant improvement. At discharge his creatinine is 2.62, bicarb is 25. He was able to ambulate in the room to the restroom without assistance, also was evaluated by physical therapy while he was here and able to walk 220 feet while pushing the IV pole without signs of fatigue or difficulty. His home medications were discussed with nephrology, he did report some urinary hesitancy and he was prescribed Flomax 0.4 mg daily, his metoprolol was reduced from 50 mg twice daily to 25 mg twice daily as his heart rate was in the 60s. His blood pressure was still mildly elevated so amlodipine 5 mg daily was added and in regards to his bicarb which came up during hospitalization he will be prescribed 650 mEq of sodium bicarb twice daily. Patient voices concerns about discharge from the hospital, he is asking to stay in the hospital longer for multiple social/logistical reasons. 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 He did not want to take the bus because he previously had a bad experience with the substitute bus driver of one of the buses. He did not want to take a cab because he did not like the local cable installation technician. He told me that he has money for hotel but does not want to pay for it because he would have to pay the daily rate rather than a discounted rate for longer stay. He i nformed me about his belongings that are at multiple storage facilities throughout the [place] area and how he needs to gather them. He wanted time to call some friends to see if they could take him around to gather his supplies, he was unable to reach them by phone and would not provide the phone number for us to contact them. Attempted to offer patient bus ride to either [employer] or [employer] but he declined. When attempting to help him come up with plans for discharge he grew frustrated and stated "just do what you are going to do". Discharge order was placed, patient very upset with this, declined signing DC paperwork and ultimately [place] [employer] was called to assist in managing the situation. Today I spend over one hour at bedside discussing plan of care, was in the room three times attempting to come up with an agreeable solution with patient. Vital Signs/Physical Exam: Temp Pulse Resp BP Pulse Ox 97.5 F 62 15 153/85 H 98 06/05/24 08:00 06/05/24 11:16 06/05/24 08:00 06/05/24 11:16 06/05/24 08:00 General: Alert, In no apparent distress, Oriented x3 HEENT: Atraumatic, PERRLA Neck: Supple, JVD not distended Respiratory: Normal air movement Cardiovascular: Regular rate/rhythm Gastrointestinal: Non-distended Musculoskeletal: No contractures Integumentary: No rashes Neurological: Normal speech, Normal affect Laboratory Data at Discharge: WBC 5.70 thou/uL (4.3-10.9) 06/02/24 04:10 Hgb 11.3 g/dL (13.6-17.9) L D 06/02/24 04:10 Hct 34.8 % (39.6-49.0) L 06/02/24 04:10 Plt Count 131 thou/uL (152-406) L 06/02/24 04:10 Sodium 139 mEq/L (136-145) 06/05/24 07:03 Potassium 4.4 mEq/L (3.5-5.1) 06/05/24 07:03 BUN 29 mg/dL (7-18) H 06/05/24 07:03 Creatinine 2.62 mg/dL (0.70-1.30) H 06/05/24 07:03 Glucose 112 mg/dL (74-106) H 06/05/24 07:03 Uric Acid 6.5 mg/dL (3.5-7.2) 06/04/24 04:02 Phosphorus 3.3 mg/dL (2.5-4.9) 06/05/24 07:03 Magnesium 1.8 mg/dL (1.6-2.4) 06/04/24 04:02 Total Bilirubin 0.5 mg/dL (0.2-1.0) 06/01/24 11:59 AST 22 U/L (15-37) 06/01/24 11:59 ALT 27 U/L (16-61) 06/01/24 11:59 Alkaline Phosphatase 60 U/L (45-117) 06/01/24 11:59 Home Medications: Aspirin [Aspirin EC 81 MG] 81 mg PO DAILY #30 tab 11/16/23 Amlodipine [Norvasc*] 5 mg PO DAILY #30 tab 06/05/24 Metoprolol Tartrate [Lopressor*] 25 mg PO BID #60 tab 06/05/24 Sodium Bicarbonate 650 mg PO BID #60 tab 06/05/24 Tamsulosin [Flomax*] 0.4 mg PO DAILY #30 cap 06/05/24 New Medications: Tamsulosin [Flomax*] 0.4 mg PO DAILY #30 cap Metoprolol Tartrate [Lopressor*] 25 mg PO BID #60 tab Amlodipine [Norvasc*] 5 mg PO DAILY #30 tab Sodium Bicarbonate 650 mg PO BID #60 tab Physician Discharge Instructions: Patient was admitted to the hospital for acute kidney injury with initial creatinine of 3.1. His baseline creatinine appears to be around 2.5. He was treated with IV fluids, sodium bicarb and had significant improvement. At discharge his creatinine is 2.62, bicarb is 25. He was able to ambulate in the room to the restroom without assistance, also was evaluated by physical therapy while he was here and able to walk 220 feet while pushing the IV pole without signs of fatigue or difficulty. His home medications were discussed with nephrology, he did report some urinary hesitancy and he was prescribed Flomax 0.4 mg daily, his metoprolol was reduced from 50 mg twice daily to 25 mg twice daily as his heart rate was in the 60s. His blood pressure was still mildly elevated so amlodipine 5 mg daily was added and in regards to his bicarb which came up during hospitalization he will be prescribed 650 mEq of sodium bicarb twice daily. Diet: Renal Activity: Fall precautions Followup: Pedro Atkinson DO [ACTIVE - CAN ADMIT] - 1-2 Weeks NONE,NONE [Primary Care Provider] - 1-2 Weeks Time spent managing pt's care (in minutes): 52
[2024-06-05 12:58] VITALS: BP 176/83; TEMP 97.7
[2024-06-05] MEDS ORDERED: SODIUM BICARB 325 MG TAB PO SCH (21:00)
--- NOTE | 2024-06-05 21:03 | P.PN ---
Date of Service: 06/05/24 Vital Signs Temp Pulse Resp BP Pulse Ox 97.7 F 68 16 176/83 H 95 06/05/24 12:00 06/05/24 12:00 06/05/24 12:00 06/05/24 12:00 06/05/24 12:00 Assessment/ Plan: Nephrology No dyspnea No chest pain Reports intermittent difficulty with urination No acute events overnight Vitals, medications, blood work and imaging reviewed in the chart General: In no apparent distress, Oriented x3, Cooperative HEENT: Atraumatic Neck: Supple Respiratory: Clear to auscultation bilaterally Cardiovascular: No edema, Regular rate/rhythm Gastrointestinal: Soft and benign, Non-distended Musculoskeletal: No clubbing, No contractures Integumentary: No rashes, No cyanosis Neurological: Normal speech Laboratory Data (last 24 hrs) 06/01/24 06/01/24 11:59 11:59 WBC 4.40 Hgb 12.9 L Hct 40.2 Plt Count 136 L Sodium 136 Potassium 5.4 H BUN 49 H Creatinine 3.10 H Glucose 73 L Magnesium 2.3 Total Bilirubin 0.5 AST 22 ALT 27 Alkaline Phosphatase 60 Imagings Data: EXAMINATION: CT ABDOMEN AND PELVIS WITHOUT CONTRAST CLINICAL INDICATION: Male, 78 years old.Assess for obstructive uropathy/hydronephrosis IV CONTRAST: Not administered. COMPARISON: 01/26/2023 FINDINGS: The lack of intravenous contrast limits the sensitivity of this exam for evaluation of solid visceral organs, vascular structures, and retroperitoneum. LOWER CHEST: Multivessel coronary artery disease. Similar elevated left hemidiaphragm. LIVER: Normal in size and contour. No focal lesion. GALLBLADDER/BILE DUCTS: No biliary ductal dilatation.? PANCREAS: No mass, ductal dilation, or martha-pancreatic fluid. SPLEEN: Normal size. No focal lesion. ADRENALS: Normal; no mass. KIDNEYS AND URETERS: Bilateral renal lesions which are either benign in appearance or too small to accurately characterize but statistically benign. Bilateral renal cortical thinning. Nodular Javier left kidney. URINARY BLADDER: Normal contour. GASTROINTESTINAL TRACT: Stomach is non-dilated. Small bowel has normal course and caliber. No colonic wall thickening or pericolonic inflammatory changes. PERITONEUM: No free fluid. ABDOMINAL AORTA AND OTHER VESSELS: Normal caliber aorta and IVC. Atherosclerosis. REPRODUCTIVE ORGANS: No pathologic process. MUSCULOSKELETAL: No acute or suspicious osseous abnormality. Multilevel degenerative changes are present in the spine. ADDITIONAL FINDINGS: None. IMPRESSION: No acute or significant abnormalities in the abdomen or pelvis, with evaluation limited by lack of IV contrast. EXAMINATION: ONE VIEW CHEST XR CLINICAL INDICATION: Male, 78 years old.weakness TECHNIQUE: 1 View, AP supine, X-ray of the chest was performed. [id number]. COMPARISON: 11/15/2023 FINDINGS: Lungs and pleura: Chronically elevated left hemidiaphragm with likely underlying atelectasis. Lungs are otherwise clear. Heart and mediastinum: Normal heart size. Unremarkable mediastinal contours. Osseous structures: No acute abnormality. Tubes/lines: None Other: None. IMPRESSION: No acute intrathoracic abnormality. Chronic left hemidiaphragm elevation. EXAM DESCRIPTION: US - Renal Ultrasound-Complete - 01/08/2023 3:21 pm CLINICAL HISTORY: Worsening renal function/abdominal pain COMPARISON: November 2002 FINDINGS: The right kidney measures 9 cm with a borderline increased echotexture The left kidney measures 9 cm with a borderline increased echotexture On today's exam, the cysts appear simple. Largest is present within the right kidney measuring 2 centimeters Hydronephrosis is not seen. No gross abnormality of bladder is noted IMPRESSION: No hydronephrosis 12-01-22 LEFT VENTRICULAR WALL MOTION: NORMAL. DOPPLER/COLOR FLOW: SEE BELOW. COMMENTS: NORMAL EJECTION FRACTION 55-60% NORMAL WALL MOTION MILD MITRAL REGURGITATION Conclusions/Impression: Stage I DANIEL may be due to hypovolemia CKD IV with Proteinuria -No NSAIDs -Continue IVF with LR Hyperkalemia -resolved Metabolic Acidosis -Continue oral bicarb Hypercalcemia -resolved HTN with CKD -Continue Metoprolol BID DM II with CKD -RISS Anemia in chronic illness -Monitor H&H BPH with LUTS -Start Flomax Hospitalist note reviewed Case reviewed with hospitalist team
== END 2024-06-05 15:20 | disposition home or self-care (01) | DRG 683 ==
LOC: ER 11:25 → ERHOLD 13:20 → 2ND 13:58
PROVIDERS: ADMIT Internal Medicine; ATTEND Hospitalist
PROC: 0T9B70Z Drainage of Bladder with Drainage Device, Via Natural or Artificial Opening (ICD-10-PCS; principal; 2024-06-01)
DX: N17.9 Acute kidney failure, unspecified (principal); E87.20 Acidosis, unspecified; Z59.01 Sheltered homelessness; E87.5 Hyperkalemia; I12.9 Hypertensive chronic kidney disease with stage 1 through stage 4 chronic kidney disease, or unspecified chronic kidney disease; N18.4 Chronic kidney disease, stage 4 (severe); E11.22 Type 2 diabetes mellitus with diabetic chronic kidney disease; E11.649 Type 2 diabetes mellitus with hypoglycemia without coma; D63.1 Anemia in chronic kidney disease; E78.5 Hyperlipidemia, unspecified; F41.9 Anxiety disorder, unspecified; N40.1 Benign prostatic hyperplasia with lower urinary tract symptoms; E83.52 Hypercalcemia; R19.7 Diarrhea, unspecified; Z23 Encounter for immunization; Z88.8 Allergy status to other drugs, medicaments and biological substances; Z79.82 Long term (current) use of aspirin; Z79.899 Other long term (current) drug therapy
CPT/HCPCS: 36415; 71045; 74176; 80048; 80069; 80076; 81001; 82947; 83605; 83735; 83880; 84100; 84484; 84550; 85025; 90471; 90732; 93005; 96361; 96365; 97116; 97161; 97530; 99285; J0360; J0612; J1644; J3475; J7030; J7040; J7120

== ENCOUNTER 2024-10-06 13:32 | Inpatient (IN) | payer MEDICARE ==
--- OUTSIDE RECORDS SUMMARY | 2024-10-06 13:37 | XMS REPORT | Continuity of Care Document ---
Author Name Unknown Address [address] [facility] [address] [place] [address] [facility] Address [address] [facility] [address] [place] [address] Care Team Providers Care Mill Laborer Name Role Phone NO PHYSICIAN, . Primary Care Physician Unavailab LAUREN Grullon Attending Clinician Unavailable DIOR RUSH Attending Clinician Unavailab Kem Pang MD Attending Clinician KEVON BUNCH Attending Clinician Unavailable KEVON BUNCH Attending Clinician Unavailable Domi Nicole Attending Clinician + Kevon Bunch DO Attending Clinician + EMPERATRIZ MCFADDEN Attending Clinician Unavailab EMPERATRIZ Viramontes Attending Clinician Unavailab Cody Junior MD Attending Clinician + Emperatriz Mcfadden DO Attending Clinician [phone] Tereso Monreal MD Attending Clinician [phone] Leatha Lipscomb Attending Clinician YANELI PRIYANKLICHAADNREA Attending Clinician Unavailable ROCIO GROVES Attending Clinician Unavailable Priyank Groves DODamarisAndrea Attending Clinician [phone] LEONARDO BROWN Attending Clinician UnavailLeonardo Magana MD Attending Clinician + [phone] DOMI LAMAR Attending Clinician Unavailable Domi Nicole Attending Clinician [phone] Miller_S_AH Attending Clinician Unavailable Ajibade_O_AH Attending Clinician Unavailable Ige-Odunfernando_J_AH Attending Clinician Unavailable Ivan Contreras Attending Clinician Unavailable Ivan Contreras Attending Clinician Unavailable DOMI LAMAR Admitting Clinician Unavailable EMPERATRIZ MCFADDEN Admitting Clinician UnavailLEONARDO Healy Admitting Clinician Unavailbony Pedro_S_AH Admitting Clinician Unavailable Ajibalui_O_AH Admitting Clinician Unavailable Ige-Dheeraj_J_AH Admitting Clinician Unavailable Ivan Contreras Admitting Clinician Unavailable Payers Payer Name Policy Type Policy Number Effective Date Expirati on Date Source [place] [place]MIUM [place] [id number] 2022 00:00:00 [place] [place]MEDICARE REPLACEMENT/ADVANT AGE - HMO) [id number] 00:00:00 Problems Condition Name Condition Details Condition Category Status Onset Date Resolution Date Last Treatment Date Treating Clinician Comments Source Viral upper respirator y tract infection Viral Upper Respirator y Tract Infection Problem Active 3-05 00:00: 00 [facility] Urinary incontinen ce Urinary Incontinen ce Problem Active 2- 00:00: 00 [facility] Unintentio nal weight loss Unintentio nal Weight Loss Problem Active 1-18 00:00: 00 [facility] Dental caries Dental Caries Problem Active 2023-07 00:00: 00 [facility] Lesion of urinary bladder Lesion of Urinary Bladder Problem Active 2023-07 00:00: 00 [facility] Chronic kidney disease stage 4 Chronic Kidney Disease Stage 4 Problem Active 2023-07 00:00: 00 [facility] Generalize d abdominal pain Generalize d Abdominal Pain Problem Active 2023-07 00:00: 00 [facility] Recurrent major depressive episodes, mild Recurrent Major Depressive Episodes, Mild Problem Active 2023-07 00:00: 00 [facility] Atheroscle rosis of aorta Atheroscle rosis of Aorta Problem Active 2023-07 00:00: 00 [facility] Anemia of chronic disease Anemia of Chronic Disease Problem Active 2023-07 00:00: 00 [facility] Senile purpura Senile Purpura Problem Active 2023-07 00:00: 00 [facility] Thrombocyt openic disorder Thrombocyt openic Disorder Problem Active 2023-07 00:00: 00 [facility] Hypertensi ve heart and chronic kidney disease Hypertensi ve Heart and Chronic Kidney Disease Problem Active 2023-07 00:00: 00 [facility] Tobacco dependence caused by cigarettes Tobacco Dependence Caused by Cigarettes Problem Active 2023-07 00:00: 00 [facility] Hypercoagu lability state Hypercoagu lability State Problem Active 2023-07 00:00: 00 [facility] Hypertensi ve heart disease Hypertensi ve Heart Disease Problem Active 2023-07 00:00: 00 [facility] Benign prostatic hyperplasi a Benign Prostatic Hyperplasi a Problem Active 2023-07 00:00: 00 [facility] Functional gait abnormalit y Functional Gait Abnormalit y Problem Active 2023-07 00:00: 00 [facility] Type 2 diabetes mellitus Type 2 Diabetes Mellitus Problem Active 2023-07 00:00: 00 [facility] Deficiency of macronutri ents Deficiency of Macronutri ents Problem Active 2023-07 00:00: 00 [facility] Secondary immune deficiency disorder Secondary Immune Deficiency Disorder Problem Active 2023-07 00:00: 00 [facility] Senile purpura Senile Purpura Problem Active 10-27 00:00: 00 [facility] Noncomplia nce with treatment Noncomplia nce with Treatment Problem Active 10-27 00:00: 00 [facility] 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 Multiple Complicati ons Due to Type 2 Diabetes Mellitus Problem Active 3 00:00: 00 [facility] Diabetes mellitus Diabetes Mellitus Problem Active 09-23 00:00: 00 [facility] Hyperlipid emia Hyperlipid emia Problem Active 09-23 00:00: 00 [facility] Morbid obesity Morbid Obesity Problem Active 09-23 00:00: 00 [facility] Generalize d anxiety disorder Generalize d Anxiety Disorder Problem Active 09-23 00:00: 00 [facility] Essential hypertensi on Essential Hypertensi on Problem Active 09-23 00:00: 00 [facility] Chronic kidney disease stage 3 Chronic Kidney Disease Stage 3 Problem Active 09-23 00:00: 00 [facility] Obesity Obesity Disease Active 04-19 00:00: 00 [facility] Cataract Cataract Disease Active 04-01 00:00: 00 Overview: Formattin g of this note might be different from the original. 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 [facility] Malingerin g Problem [facility] Encounter for wellness examinatio n in adult Problem [facility] Abdominal wall hernia Problem [facility] Other diseases of nasal cavity and sinuses(47 8.19) Other diseases of nasal cavity and sinuses(47 8.19) Disease Resolve d 2006-07 00:00: 00 2009-03-21 00:00:00 2009-03-21 09:11:44 [facility] Cough Cough Disease Resolve d 2006-07 00:00: 00 2009-03-21 00:00:00 2009-03-21 09:11:39 [facility] Allergies, Adverse Reactions, Alerts Allergy Name Allergy Type Status Severity Reaction(s) Onset Date Inactive Date Treating Clinician Comments Source No Known Allergie s Drug Active [facility] Tresiba Drug Active [facility] NO KNOWN ALLERGIE S Drug Class Active [facility] Social History Social Habit Start Date Stop Date Quantity Comments Source [facility] of tobacco use Cigarette Smoker [facility] Alcohol intake 2022-02-07 00:00:00 2022-02-07 00:00:00 Current drinker of alcohol (finding) [facility] Alcoholic beverage intake 2022-02-07 00:00:00 2022-02-07 00:00:00 Current drinker of alcohol (finding) [facility] History of Social function 2022-02-07 00:00:00 2022-02-07 00:00:00 [facility] Cigarettes smoked current (pack per day) - Reported 2007-09-05 00:00:00 2007-09-05 00:00:00 [facility] Cigarette pack-years 2007-09-05 00:00:00 2007-09-05 00:00:00 [facility] Tobacco Comment 2006-08-03 00:00:00 2006-08-03 00:00:00 has quit off/on for up to 7 years [facility] Alcohol Comment 2006-08-03 00:00:00 2006-08-03 00:00:00 0-2 drinks/month [facility] Sex assigned at 1945 00:00:00 1945 00:00:00 [facility] Smoking Status Start Date Stop Date Source Former Smoker [facility] Smokes tobacco daily 2007-09-05 00:00:00 [facility] Medications Ordered Medication Name Filled Medication Name Start Date Stop Date Current Medication? Ordering Clinician Indication Dosage Frequency Signature (SIG) Comments Components Source NaCl 0.9% (NS) bolus infusion 1,000 mL 04-19 18:45: 00 04-19 19:00 :00 No 1000mL at 999 mL/hr, 1,000 mL, IV Infusion, ONCE, 1 dose, On 04/19/24 at 1345, MADI [facility] meclizine (TRAVEL-EAS E (MECLIZINE) ) tablet 25 mg 01-15 16:15: 00 01-15 20:25 :00 No 25mg 25 mg, Oral, ONCE, 1 dose, On 01/15/23 at 1115, MADI [facility] meclizine 25 mg tablet 01-15 00:00: 00 Yes [id number] 25mg Take 1 tablet by mouth 3 (three) times daily as needed for Dizziness. [facility] metFORMIN 500 mg tablet 01-02 00:00: 00 Yes [id number] 500mg Take 1 tablet by mouth in the morning and 1 tablet in the evening. [facility] hydrocortis one 2.5 % rectal cream 01-02 00:00: 00 Yes [id number] Insert into rectum 2 (two) times daily. [facility] docusate (COLACE) 100 mg capsule 01-02 00:00: 00 02-02 04:59 :00 No [id number] 100mg Take 1 capsule by mouth in the morning for 30 days. [facility] omeprazole 40 mg capsule 01-02 00:00: 00 02-02 04:59 :00 No [id number] 40mg Take 1 capsule by mouth in the morning for 30 days. [facility] prednisoLON E acetate (PRED-FORTE ) 1 % ophthalmic suspension drops 10-27 00:00: 00 Yes 1[drp] Place 1 Drop in right eye 4 (four) times daily. [facility] diclofenac (VOLTAREN) 0.1 % ophthalmic solution 10-27 00:00: 00 Yes 1[drp] Place 1 Drop in right eye 4 (four) times daily. [facility] ciprofloxac in HCl (CILOXAN) 0.3 % opthalmic drops 10-27 00:00: 00 Yes 1[drp] Place 1 Drop in right eye 4 (four) times daily. [facility] LANTUS SOLOSTAR 100 unit/mL (3 mL) InPn 10-13 00:00: 00 Yes [facility] MULTIVITAMI N ORAL LIQD 2009-07 09:25: 45 Yes one daily [facility] FISH OIL ORAL 2009-07 09:25: 43 Yes po bid [facility] blood sugar diagnostic (CHEMSTRIP BG) strip 03-01 00:00: 00 Yes [id number] [facility] blood sugar diagnostic (CHEMSTRIP BG) strip 03-01 00:00: 00 Yes [id number] [facility] Asprin Ec Low Dose 81 mg tablet,juan yed release Take 1 tablet every day by oral route. Asprin Ec Low Dose 81 mg tablet,juan yed release Take 1 tablet every day by oral route. No 1 Q1D Asprin Ec Low Dose 81 mg tablet,del ayed release Take 1 tablet every day by oral route. [facility] hydroxyzine HCl 25 mg [...] oral route as needed for 30 days. [facility] Levemir FlexTouch U-100 Insulin [...] the morning and 35 units at night. [facility] metoprolol tartrate 50 mg tablet Take 1 tablet twice a day by oral route as directed for 30 days. metoprolol tartrate 50 mg tablet Take 1 tablet twice a day by oral route as directed for 30 days. No 1 BID metoprolol tartrate 50 mg tablet Take 1 tablet twice a day by oral route as directed for 30 days. [facility] melatonin 10 mg tablet Take 1 tablet every day by oral route. melatonin 10 mg tablet Take 1 tablet every day by oral route. No 1 Q1D melatonin 10 mg tablet Take 1 tablet every day by oral route. [facility] duloxetine 30 mg capsule,del ayed release duloxetine 30 mg capsule,del ayed release No duloxetine 30 mg capsule,de layed release [facility] fluoxetine 10 mg capsule fluoxetine 10 mg capsule No fluoxetine 10 mg capsule [facility] losartan 25 mg tablet Take 1 mg every day by oral route. losartan 25 mg tablet Take 1 mg every day by oral route. No 1mg Q1D losartan 25 mg tablet Take 1 mg every day by oral route. [facility] albuterol sulfate 2.5 mg/3 mL (0.083 %) solution for nebulizatio n Inhale 3 mL every 6 hours by inhalation route as needed. albuterol sulfate 2.5 mg/3 mL (0.083 %) solution for nebulizatio n Inhale 3 mL every 6 hours by inhalation route as needed. No 3mL Q6H albuterol sulfate 2.5 mg/3 mL (0.083 %) solution for nebulizati on Inhale 3 mL every 6 hours by inhalation route as needed. [facility] amlodipine 5 mg tablet Take 1 tablet every day by oral route. amlodipine 5 mg tablet Take 1 tablet every day by oral route. No 1 Q1D amlodipine 5 mg tablet Take 1 tablet every day by oral route. [facility] cetirizine 5 mg tablet Take 1 tablet every day by oral route. cetirizine 5 mg tablet Take 1 tablet every day by oral route. No 1 Q1D cetirizine 5 mg tablet Take 1 tablet every day by oral route. [facility] senna 8.6 mg tablet Take 2 tablets every day by oral route. senna 8.6 mg tablet Take 2 tablets every day by oral route. No 2 Q1D senna 8.6 mg tablet Take 2 tablets every day by oral route. [facility] simethicone 180 mg capsule Take 1 capsule twice a day by oral route as needed. simethicone 180 mg capsule Take 1 capsule twice a day by oral route as needed. No 1capsul e(s) BID simethicon e 180 mg capsule Take 1 capsule twice a day by oral route as needed. [facility] tamsulosin 0.4 mg capsule Take 1 capsule twice a day by oral route. tamsulosin 0.4 mg capsule Take 1 capsule twice a day by oral route. No 1capsul e(s) BID tamsulosin 0.4 mg capsule Take 1 capsule twice a day by oral route. [facility] triamcinolo ne acetonide 0.1 % lotion triamcinolo ne acetonide 0.1 % lotion No triamcinol one acetonide 0.1 % lotion [facility] Immunizations Ordered Immunization Name Filled Immunization Name Date Status Comments Source Pneumococcal Polysaccharide, PPSV23 (PNEUMOVAX) 2008-09-07 00:00:00 Completed [facility] Pneumococcal Polysaccharide, PPSV23 (PNEUMOVAX) 2008-09-07 00:00:00 Completed [facility] Pneumococcal Polysaccharide, PPSV23 (PNEUMOVAX) 2008-09-07 00:00:00 Completed [facility] Pneumococcal Polysaccharide, PPSV23 (PNEUMOVAX) 2008-09-07 00:00:00 Completed [facility] Influenza Virus Vaccine 2007-05-31 00:00:00 Completed [facility] Influenza Virus Vaccine 2007-05-31 00:00:00 Completed [facility] Influenza Virus Vaccine 2007-05-31 00:00:00 Completed [facility] Influenza Virus Vaccine 2007-05-31 00:00:00 Completed [facility] Pneumococcal conjugate PCV20, polysaccharide [id number] conjugate, adjuvant, PF Pneumococcal conjugate PCV20, polysaccharide [id number] conjugate, adjuvant, PF Unknown Completed [facility] Influenza Virus Vaccine Unknown Completed [facility] Pneumococcal Polysaccharide, PPSV23 (PNEUMOVAX) Unknown Completed [facility] Influenza Virus Vaccine Unknown Completed [facility] Pneumococcal Polysaccharide, PPSV23 (PNEUMOVAX) Unknown Completed [facility] Vital Signs Vital Name Observation Time Observation Value Comments S ource Height 2024-09-22 00:00:00 70 [in_i] [facility] Body Weight 2024-09-22 00:00:00 2752 [oz_av] [facility] BMI (Body Mass Index) 2024-09-22 00:00:00 24.7 kg/m2 [facility] BP Diastolic 2024-09-22 00:00:00 62 mm[Hg] [facility] BP Systolic 2024-09-22 00:00:00 112 mm[Hg] [facility] BP Diastolic 2024-09-11 00:00:00 75 mm[Hg] [facility] BP Systolic 2024-09-11 00:00:00 158 mm[Hg] [facility] BMI (Body Mass Index) 2024-09-11 00:00:00 24.7 kg/m2 [facility] Height 2024-09-11 00:00:00 70 [in_i] [facility] Body Weight 2024-09-11 00:00:00 2752 [oz_av] [facility] BP Diastolic 2024-08-29 00:00:00 78 mm[Hg] [facility] Height 2024-08-29 00:00:00 70 [in_i] [facility] BMI (Body Mass Index) 2024-08-29 00:00:00 24.4 kg/m2 [facility] Body Weight 2024-08-29 00:00:00 2720 [oz_av] [facility] BP Systolic 2024-08-29 00:00:00 125 mm[Hg] [facility] Height 2024-08-26 00:00:00 70 [in_i] [facility] Body Weight 2024-08-26 00:00:00 2720 [oz_av] [facility] BP Diastolic 2024-08-26 00:00:00 67 mm[Hg] [facility] BP Systolic 2024-08-26 00:00:00 136 mm[Hg] [facility] BMI (Body Mass Index) 2024-08-26 00:00:00 24.4 kg/m2 [facility] BP Systolic 2024-08-08 00:00:00 130 mm[Hg] [facility] Height 2024-08-08 00:00:00 70 [in_i] [facility] Body Weight 2024-08-08 00:00:00 2720 [oz_av] [facility] BMI (Body Mass Index) 2024-08-08 00:00:00 24.4 kg/m2 [facility] BP Diastolic 2024-08-08 00:00:00 63 mm[Hg] [facility] Height 2024-07-25 00:00:00 70 [in_i] [facility] BMI (Body Mass Index) 2024-07-25 00:00:00 25.7 kg/m2 [facility] BP Diastolic 2024-07-25 00:00:00 69 mm[Hg] [facility] Body Weight 2024-07-25 00:00:00 2864 [oz_av] [facility] BP Systolic 2024-07-25 00:00:00 132 mm[Hg] [facility] Body Weight 2024-07-14 00:00:00 2864 [oz_av] [facility] BP Systolic 2024-07-14 00:00:00 126 mm[Hg] [facility] BP Diastolic 2024-07-14 00:00:00 62 mm[Hg] [facility] Height 2024-07-14 00:00:00 70 [in_i] [facility] BMI (Body Mass Index) 2024-07-14 00:00:00 25.7 kg/m2 [facility] BP Systolic 2024-07-11 00:00:00 137 mm[Hg] [facility] Height 2024-07-11 00:00:00 70 [in_i] [facility] BMI (Body Mass Index) 2024-07-11 00:00:00 25.7 kg/m2 [facility] BP Diastolic 2024-07-11 00:00:00 74 mm[Hg] [facility] Body Weight 2024-07-11 00:00:00 2866 [oz_av] [facility] BP Systolic 2024-07-10 00:00:00 138 mm[Hg] [facility] BMI (Body Mass Index) 2024-07-10 00:00:00 25.7 kg/m2 [facility] Body Weight 2024-07-10 00:00:00 2870 [oz_av] [facility] BP Diastolic 2024-07-10 00:00:00 71 mm[Hg] [facility] Height 2024-07-10 00:00:00 70 [in_i] [facility] BP Systolic 2024-07-08 00:00:00 136 mm[Hg] [facility] Body Weight 2024-07-08 00:00:00 2864 [oz_av] [facility] BP Diastolic 2024-07-08 00:00:00 72 mm[Hg] [facility] BMI (Body Mass Index) 2024-07-08 00:00:00 25.7 kg/m2 [facility] Height 2024-07-08 00:00:00 70 [in_i] [facility] Height 2024-07-04 00:00:00 70 [in_i] [facility] BP Diastolic 2024-07-04 00:00:00 77 mm[Hg] [facility] BP Systolic 2024-07-04 00:00:00 138 mm[Hg] [facility] BMI (Body Mass Index) 2024-07-04 00:00:00 26.2 kg/m2 [facility] Body Weight 2024-07-04 00:00:00 2918 [oz_av] [facility] Height 2024-06-14 18:08:00 177.668507 cm [facility] Weight 2024-06-14 18:08:00 77.000421 kg [facility] BMI (Body Mass Index) 2024-06-14 18:08:00 24.4 kg/m2 [facility] Height 2024-06-12 18:15:00 177.883150 cm [facility] Weight 2024-06-12 18:15:00 76.140269 kg [facility] BMI (Body Mass Index) 2024-06-12 18:15:00 24.2 kg/m2 [facility] Systolic blood pressure 2024-06-08 16:15:00 143 mm[Hg] [facility] Diastolic blood pressure 2024-06-08 16:15:00 81 mm[Hg] [facility] Heart rate 2024-06-08 16:15:00 82 /min [facility] Body temperature 2024-06-08 16:15:00 37 Monse [facility] Respiratory rate 2024-06-08 16:15:00 16 /min [facility] Body height 2024-06-08 16:15:00 177.8 cm [facility] Body weight 2024-06-08 16:15:00 81.647 kg [facility] BMI 2024-06-08 16:15:00 25.83 kg/m2 [facility] Oxygen saturation in Arterial blood by Pulse oximetry 2024-06-08 16:15:00 100 /min [facility] Systolic blood pressure 2024-06-06 11:53:00 157 mm[Hg] [facility] Diastolic blood pressure 2024-06-06 11:53:00 77 mm[Hg] [facility] Heart rate 2024-06-06 11:53:00 76 /min [facility] Body temperature 2024-06-06 11:53:00 36.94 Monse [facility] Respiratory rate 2024-06-06 11:53:00 20 /min [facility] Oxygen saturation in Arterial blood by Pulse oximetry 2024-06-06 11:53:00 97 /min [facility] Body height 2024-06-05 23:41:00 177.8 cm [facility] Body weight 2024-06-05 23:41:00 77.111 kg [facility] BMI 2024-06-05 23:41:00 24.39 kg/m2 [facility] Systolic blood pressure 2024-04-19 20:00:00 142 mm[Hg] [facility] Diastolic blood pressure 2024-04-19 20:00:00 127 mm[Hg] [facility] Heart rate 2024-04-19 20:00:00 56 /min [facility] Respiratory rate 2024-04-19 20:00:00 25 /min [facility] Oxygen saturation in Arterial blood by Pulse oximetry 2024-04-19 20:00:00 98 /min [facility] Body temperature 2024-04-19 17:24:00 37.06 Monse [facility] Body height 2024-04-19 17:24:00 177.8 cm [facility] Body weight 2024-04-19 17:24:00 79.833 kg [facility] BMI 2024-04-19 17:24:00 25.25 kg/m2 [facility] Systolic blood pressure 2023-12-05 15:00:00 137 mm[Hg] [place] [facility] Diastolic blood pressure 2023-12-05 15:00:00 75 mm[Hg] [facility] Heart rate 2023-12-05 15:00:00 74 /min [facility] Respiratory rate 2023-12-05 15:00:00 22 /min [facility] Oxygen saturation in Arterial blood by Pulse oximetry 2023-12-05 15:00:00 96 /min [facility] Body temperature 2023-12-05 13:07:00 36 Monse [facility] Body height 2023-12-05 13:07:00 177.8 cm [facility] Body weight 2023-12-05 13:07:00 84.369 kg [facility] BMI 2023-12-05 13:07:00 26.69 kg/m2 [facility] Systolic blood pressure 2023-01-16 20:00:00 160 mm[Hg] [facility] Diastolic blood pressure 2023-01-16 20:00:00 74 mm[Hg] [facility] Heart rate 2023-01-16 20:00:00 65 /min [facility] Body temperature 2023-01-16 20:00:00 36.33 Monse [facility] Respiratory rate 2023-01-16 20:00:00 18 /min [facility] Oxygen saturation in Arterial blood by Pulse oximetry 2023-01-16 20:00:00 98 /min [facility] Body weight 2023-01-16 14:47:00 90.719 kg [facility] BMI 2023-01-16 14:47:00 28.70 kg/m2 [facility] Systolic blood pressure 2023-01-15 23:00:00 144 mm[Hg] [facility] Diastolic blood pressure 2023-01-15 23:00:00 87 mm[Hg] [facility] Heart rate 2023-01-15 23:00:00 58 /min [facility] Respiratory rate 2023-01-15 23:00:00 18 /min [facility] Oxygen saturation in Arterial blood by Pulse oximetry 2023-01-15 23:00:00 99 /min [facility] Body temperature 2023-01-15 14:34:00 36.67 Monse [facility] Body weight 2023-01-15 14:34:00 90.719 kg [facility] BMI 2023-01-15 14:34:00 28.70 kg/m2 [facility] Systolic blood pressure 2023-01-02 19:00:00 139 mm[Hg] [facility] Diastolic blood pressure 2023-01-02 19:00:00 80 mm[Hg] [facility] Heart rate 2023-01-02 19:00:00 60 /min [facility] Respiratory rate 2023-01-02 19:00:00 16 /min [facility] Oxygen saturation in Arterial blood by Pulse oximetry 2023-01-02 19:00:00 99 /min [facility] Body temperature 2023-01-02 15:48:00 36.72 Monse [facility] Body height 2023-01-02 15:48:00 177.8 cm [facility] Body weight 2023-01-02 15:48:00 113.399 kg [facility] BMI 2023-01-02 15:48:00 35.87 kg/m2 [facility] Height 2020-10-27 00:00:00 70 [in_i] [facility] BMI (Body Mass Index) 2020-10-27 00:00:00 37.3 kg/m2 [facility] Body Weight 2020-10-27 00:00:00 260 [lb_av] [facility] BP Diastolic 2020-09-23 00:00:00 86 mm[Hg] [facility] Height 2020-09-23 00:00:00 70 [in_i] [facility] BMI (Body Mass Index) 2020-09-23 00:00:00 37.3 kg/m2 [facility] BP Systolic 2020-09-23 00:00:00 136 mm[Hg] [facility] Body Weight 2020-09-23 00:00:00 260 [lb_av] [facility] Height/Length Measured 2021-08-16 11:09:21 177.80 cm Weight Dosing 2021-08-16 11:09:21 108.86 kg Procedures Procedure Date / Time Performed Performing Clinicia n Source URINALYSIS 2024-06-06 03:10:00 Domi Lamar [facility] LIPASE 2024-06-06 01:43:00 Willard [facility] HEPATIC FUNCTION PANEL ([id number]) (ALB,T.PRO,BILI T,BU/BC,ALT,AST,ALK PHOS) 2024-06-06 01:43:00 Willard [facility] BASIC METABOLIC PANEL (NA, K, CL, CO2, GLUCOSE, BUN, CREATININE, CA) 2024-06-06 01:43:00 [facility] CBC WITH DIFF 2024-06-06 01:43:00 Domi Lamar [facility] EKG-12 LEAD 2024-04-19 20:31:42 [facility] 2024-04-19 19:31:00 [facility] CHEST 1 VW 2024-04-19 18:07:37 Emperatriz [facility]adden [facility]IP[facility] 2024-04-19 17:34:00 Emperatriz Mcfadden [facility] TROPONIN I 2024-04-19 17:34:00 Emperatriz Mcfadden Un [facility] COMP. METABOLIC PANEL (36661) 2024-04-19 17:34:00 Emperatriz Mcfadden [facility] CBC WITH DIFF 2024-04-19 17:34:00 Emperatriz Mcfadden U [facility] N-TERMINAL PRO-BNP 2024-04-19 17:34:00 Estelita Mcfadden [facility] EKG-12 LEAD 2023-12-05 16:36:04 Tereso Monreal [facility] URINALYSIS 2023-12-05 15:21:00 Tereso Monreal [facility] CT CERVICAL SPINE WO CONTRAST 2023-12-05 14:02:23 Tereso Monreal [facility] CT HEAD WO CONTRAST 2023-12-05 14:02:23 Tereso Monreal [facility] XR CHEST 1 VW 2023-12-05 13:57:49 Tereso Monreal [facility] TROPONIN I 2023-12-05 13:16:00 Tereso Monreal [facility] COMP. METABOLIC PANEL (38131) 2023-12-05 13:16:00 Tereso Monreal [facility] CBC WITH DIFF 2023-12-05 13:16:00 Tereso Monreal [facility] N-TERMINAL PRO-BNP 2023-12-05 13:16:00 Tereso Monreal [facility] POCT GLUCOSE (AUTOMATED) 2023-12-05 13:15:00 Tereso Monreal [facility] COMP. METABOLIC PANEL (88882) 2023-01-16 16:29:00 Rocio Groves [facility] CBC WITH DIFF 2023-01-16 16:00:00 Rocio Groves [facility] TROPONIN I 2023-01-15 20:04:00 Leonardo Brown [facility] COMP. METABOLIC PANEL (13818) 2023-01-15 20:04:00 Leonardo Brown [facility] CBC WITH DIFF 2023-01-15 20:04:00 Leonardo Brown [facility] CT HEAD WO CONTRAST 2023-01-15 17:57:13 Mike Brown [facility] URINALYSIS 2023-01-02 17:22:00 Domi Lamar [facility] LIPASE 2023-01-02 16:51:00 [facility]ard [facility] COMP. METABOLIC PANEL ([id number]) 2023-01-02 16:51:00 Domi Lamar [facility] CBC WITH DIFF 2023-01-02 16:51:00 Domi Lamar [facility] Excision of Colon 1992-07-30 00:00:00 Betsy via Medical Screening for Malignant Neoplasm of Prostate [facility] Extraction of Cataract [facility] Removal of Colon [facility] Kidney Stone Removal [facility] Medical Encounters Start Date/Time End Date/Time Encounter Type Admission Type Attending Clinicians Care Facility Care Department Encounter ID Source 2024-09-22 00:00:00 2024-09-22 00:00:00 CHARITY Montaño: [address] [place] [phone] , Ph. [facility] - GC_[facility] [id number] [facility] 2024-09-11 00:00:00 2024-09-11 00:00:00 Delfin Barragan MD: [address] [place] [phone] , Ph. [facility] - [facility] [id number] [facility] 2024-08-29 00:00:00 2024-08-29 00:00:00 CHARITY Montaño: [address] [place] [phone] , Ph. [facility] - [facility] [id number] [facility] 2024-08-26 00:00:00 2024-08-26 00:00:00 Sridevi Garibay PA: [address] [place] [phone] , Ph. [facility] - [facility] [id number] [facility] 2024-08-08 00:00:00 2024-08-08 00:00:00 Sridevi Garibay PA: [address] [place] [phone] , Ph. [facility] - [facility] [id number] [facility] 2024-07-25 00:00:00 2024-07-25 00:00:00 Sridevi Garibay PA: [address] [place] [phone] , Ph. [facility] - [facility] [id number] [facility] 2024-07-14 00:00:00 2024-07-14 00:00:00 CHARITY Montaño: [address] [place] [phone] , Ph. [facility] - [facility] [id number] [facility] 2024-07-11 00:00:00 2024-07-11 00:00:00 Sridevi Garibay PA: [address] [place] [phone] , Ph. [facility] - [facility] [id number] [facility] 2024-07-10 00:00:00 2024-07-10 00:00:00 Delfin Barragan MD: [address] [place] [phone] , Ph. [facility] - [facility] [id number] [facility] 2024-07-08 00:00:00 2024-07-08 00:00:00 CHARITY Montaño: [address] [place] [phone] , Ph. [facility] GC_[facility]HC_[facility] [id number] [facility] 2024-07-04 00:00:00 2024-07-04 00:00:00 Sridevi Garibay PA: [address] [place] [phone] , Ph. [facility] GC[facility] [id number] [facility] 2024-06-14 17:50:00 2024-06-14 19:14:00 Emergency ER LAUREN MEHTA [facility] [id number] [facility] 2024-06-14 17:50:00 2024-06-14 19:14:00 Departed Emergency Room [facility] [id number] 25 [facility] 2024-06-12 18:14:00 2024-06-12 18:40:00 Emergency ER DIOR RUSH [facility] [id number] [facility] 2024-06-12 18:14:00 2024-06-12 18:40:00 Departed Emergency Room [facility] [id number] 50 [facility] 2024-06-11 13:10:00 2024-06-11 16:45:00 Emergency ER DIOR RUSH [facility] [id number] [facility] 2024-06-11 13:10:00 2024-06-11 16:45:00 Departed Emergency Room [facility] [id number] 90 [facility] 2024-06-08 10:19:00 2024-06-08 11:17:00 Emergency Kem Armstrong [facility] 1.2.840.114 350.1.13.10 4.2.7.2.686 [id number] [facility] 2024-06-05 17:51:00 2024-06-06 06:09:00 Emergency KEVON RHOADES PHILLIP [facility] ERT [id number] [facility] 2024-06-05 17:51:00 2024-06-06 06:09:00 Emergency WillardDomi Phillip [facility] 1.2.840.114 350.1.13.10 4.2.7.2.686 [id number] [facility] 2024-04-19 12:24:00 2024-04-19 15:45:00 Emergency EMPERATRIZ HIGGINS SANDRA [facility] ERT [id number] [facility] 2024-04-19 12:24:00 2024-04-19 15:45:00 Emergency Cody Mike Sandra J [facility] 1.2.840.114 350.1.13.10 4.2.7.2.686 [id number] [facility] 2023-12-05 08:07:00 2023-12-05 12:25:00 Emergency Tereso Monreal [facility] 1.2.840.114 350.1.13.10 4.2.7.2.686 [id number] [facility] 2023-10-25 14:30:00 2023-10-25 15:30:00 Initial D2Me Salli Fulminar 2.16.840. [id number] 2.16.840.1. [id number] [address] 2023-01-16 09:49:00 2023-01-16 15:42:00 Emergency X ROCIO GROVES YANELIROCIO Cruz [facility] ERT [id number] [facility] 2023-01-16 09:49:00 2023-01-16 15:42:00 Emergency Rocio Groves [facility] 1.2.840.114 350.1.13.10 4.2.7.2.686 [id number] [facility] 2023-01-15 09:35:00 2023-01-15 19:31:00 Emergency X LEONARDO BROWN [facility] ERT [id number] [facility] 2023-01-15 09:35:00 2023-01-15 19:31:00 Emergency Leonardo Brown [facility] 1.2.840.114 350.1.13.10 4.2.7.2.686 [id number] [facility] 2023-01-02 10:42:00 2023-01-02 14:44:00 Emergency X DOMI LAMAR [facility] ERT [id number] [facility] 2023-01-02 10:42:00 2023-01-02 14:44:00 Emergency Domi Lamar [facility] 1.2.840.114 350.1.13.10 4.2.7.2.686 [id number] [facility] 2021-01-04 03:27:00 2021-01-04 03:27:00 Outpatient Miller_S_AH VFP VFP [id number] [facility] e 2020-11-10 06:52:00 2020-11-10 06:52:00 Outpatient Ajibade_O_A H VFP VFP [id number] [facility] e 2020-10-27 01:51:00 2020-10-27 01:51:00 Outpatient Ajibade_O_A H VFP VFP [id number] [facility] 2020-10-27 00:00:00 2020-10-27 00:00:00 Arleth Carrasquillo, METAL BURNISHER: [address], [place] [address], [place] [phone] , Ph. [facility] - VM_HOU_V@_ [place] [facility] [id number] [facility] 2020-10-21 08:40:00 2020-10-21 08:40:00 Outpatient Ajibade_O_A H VFP VFP [id number] [facility] 2020-09-23 04:30:00 2020-09-23 04:30:00 Outpatient Ajibade_O_A H VFP VFP [id number] [facility] 2020-09-23 00:00:00 2020-09-23 00:00:00 Arleth Carrasquillo, METAL BURNISHER: [address] [facility], [place] [address], [place] [address] , Ph. [facility] - VM_HOU_V@_ [place] [facility] [id number] [facility] 2020-03-25 04:36:00 2020-03-25 04:36:00 Outpatient Ajibade_O_A H VFP VFP [id number] [facility] 2020-03-25 04:36:00 2020-03-25 04:36:00 Outpatient Ajibade_O_A H VFP VFP [id number] [facility] 2020-03-25 04:36:00 2020-03-25 04:36:00 Outpatient Ajibade_O_A H VFP VFP [id number] [facility] 2020-03-25 04:36:00 2020-03-25 04:36:00 Outpatient Ajibade_O_A H VFP VFP [id number] [facility] 2019-09-17 07:13:00 2019-09-17 07:13:00 Outpatient Ige-Odunuga _J_AH VFP VFP [id number] [facility] 2019-09-17 07:13:00 2019-09-17 07:13:00 Outpatient Ige-Odunuga _J_AH VFP VFP [id number] [facility] 2019-07-03 10:34:00 2019-07-08 13:25:00 Inpatient 1 Ivan Contreras Shakeel [facility] PSY [id number] [facility] Results Test Description Test Time Test Comments Results Result Comments Source XR CHEST 1 VW 19:31:57 EXAM: XR CHEST 1 VW HISTORY: 78 years-old Male with sob . TECHNIQUE: Single frontal view of the chest. COMPARISON: Chest radiograph from December 05, 2023 FINDINGS: Lines, tubes and devices: None. Lungs and pleura: The lungs are poorly expanded, with resultantbronchovascular crowding and perihilar vascular congestion. No focalopacities, pleural effusion or pneumothorax is visualized. Heart/Mediastinum: The cardiac silhouette appears normal accounting fortechnique and degree of inspiration. Calcified atherosclerosis along theaortic arch. Bones and soft tissues: No acute fracture, aggressive osseous lesion, ordislocation. No soft tissue abnormality. [facility] [id number] 18:18:51* Test Item Value Reference Range Interpretation Comme nts NT-proBNP (test code = 98774-5) 960 pg/mL <=125 ROMINA (test code = ROMINA) Result Indeterminate-Consid er causes of NT-proBNP elevation other than Heart failure such as acute coronary syndrome, pulmonary embolism, pulmonary hypertension, sepsis, stroke, and renal dysfunction. Lab Interpretation (test code = 16338-6) [facility] (84672)2024-04-19 18:09:50* Test Item Value Reference Range Interpretation Comme nts NA (test code = 6584407332) 135 mmol/L 135-145 K (test code = 7612676382) 5.4 mmol/L 3.5-5.0 H CL (test code = 9100386628) 107 mmol/L 98-108 CO2 TOTAL (test code = 6509537915) 22 mmol/L 23-31 L AGAP (test code = 4078984015) 6 2-16 BUN (test code = 3102773381) 47 mg/dL 7-23 H GLUCOSE (test code = 6533464659) 135 mg/dL 70-110 H CREATININE (test code = 2160-0) 2.36 mg/dL 0.60-1.25 H TOTAL BILI (test code = 2002112021) 0.6 mg/dL 0.1-1.1 CALCIUM (test code = 9714451154) 9.1 mg/dL 8.6-10.6 T PROTEIN (test code = 2459446736) 6.7 g/dL 6.3-8.2 ALBUMIN (test code = 2814348552) 3.8 g/dL 3.5-5.0 ALK PHOS (test code = 4863343950) 56 U/L 34-122 ALTv (test code = 1742-6) 21 U/L 5-50 AST(SGOT) (test code = 0012612800) 31 U/L 13-40 eGFR (test code = 05721-0) 27.7 mL/min/1.73m2 CKD-EPI eGFR (2020). Assuming creatinine has been stable day-to-day for at least three months, the eGFR indicates Category G4 (15 - 29 mL/min/1.73 m2) Lab Interpretation (test code = 74418-7) [facility] 18:09:30* Test Item Value Reference Range Interpretation Comme nts LIPASE (test code = 3239265480) 210 U/L 0-220 Lab Interpretation (test cod e = 52948-8) Normal [facility] [id number] 18:01:10* Test Item Value Reference Range Interpretation Comme nts WBC (test code = 6690-2) 7.50 4.20-10.70 RBC (test code = 789-8) 3.94 4.26-5.52 L HGB (test code = 718-7) 11.6 g/dL 12.2-16.4 L HCT (test code = 4544-3) 36.3 % 38.4-49.3 L MCV (test code = 787-2) 92.1 fL 81.7-95.6 MCH (test code = 785-6) 29.4 pg 26.1-32.7 MCHC (test code = 786-4) 32.0 g/dL 31.2-35.0 RDW-SD (test code = 23783-6) 45.7 fL 38.5-51.6 RDW-CV (test code = 788-0) 13.4 % 12.1-15.4 PLT (test code = 777-3) 145 150-328 L MPV (test code = 48838-2) 11.9 fL 9.8-13.0 NRBC/100 WBC (test code = 0390318880) 0.0 0.0-10.0 NRBC x10^3 (test code = 0260559584) See_Comment [Automated messa ge] The system which generated this result transmitted reference range: 10*3/?L. The reference range was not used to interpret this result as normal/abnormal. GRAN MAT (NEUT) % (test code = 770-8) 70.3 % IMM GRAN % (test code = 0638022835) 0.30 % LYMPH % (test code = 736-9) 18.8 % MONO % (test code = 5905-5) 9.3 % EOS % (test code = 713-8) 0.8 % BASO % (test code = 706-2) 0.5 % GRAN MAT x10^3(ANC) (test code = 4502162089) 5.27 10*3/uL 1.99-6.95 IMM GRAN x10^3 (test code = 0771801867) 0.00-0.06 LYMPH x10^3 (test code = 731-0) 1.41 10*3/uL 1.09-3.23 MONO x10^3 (test code = 742-7) 0.70 10*3/uL 0.36-1.02 EOS x10^3 (test code = 711-2) 0.06 10*3/uL 0.06-0.53 BASO x10^3 (test code = 704-7) 0.04 10*3/uL 0.01-0.09 Lab Interpretation (test code = 94822-4) [facility] [id number] 14:22:10EXAM: CT HEAD WO CONTRAST, CT CERVICAL SPINE WO CONTRAST HISTORY: Dizziness for years, woke up on floor TECHNIQUE: Axial CT of the head and cervical spine was performed andreconstructed at 5 mm intervals. Coronal and sagittal reformatted imageswere generated. COMPARISON: CT head 01/15/2023 FINDINGS:HEAD: Enlargement of the ventricles and sulci is suggestive of mild cerebralvolume loss. No midlineshift or pathological extra-axial fluid collectionis present. The basal cisterns are unremarkable. No acute intracranial hemorrhage or significant mass effect is visualized.Periventricular hypodensities are nonspecific but likely represent sequelaeof microvascular ischemic disease. The alfaro-white matter differentiation ispreserved. The mastoid air cells and visualized paranasal air sinuses are clear. Thecalvarium and central skull base are unremarkable. CERVICAL SPINE: No acute fracture or dislocation. Multilevel degenerative changesthroughout the cervical spine with stepwise grade 1 anterolisthesis of C3on C4 and C4 on C5 with slight reversal of normal cervical lordosiscentered about C5. Disc height loss noted most predominantly at C5/C6 andC6/C7. The craniocervical junction is intact. Prevertebral soft tissues arewithin normal limits. Extensive calcifications noted at the right greater than left carotidbulbs. The visualized lung apices and thyroid gland are unremarkable. [facility] [id number] 14:22:10EXAM: CT HEAD WO CONTRAST, CT CERVICAL SPINE WO CONTRAST HISTORY: Dizziness for years, woke up on floor TECHNIQUE: Axial CT of the head and cervical spine was performed andreconstructed at 5 mm intervals. Coronal and sagittal reformatted imageswere generated. COMPARISON: CT head 01/15/2023 FINDINGS:HEAD: Enlargement of the ventricles and sulci is suggestive of mild cerebralvolume loss. No midlineshift or pathological extra-axial fluid collectionis present. The basal cisterns are unremarkable. No acute intracranial hemorrhage or significant mass effect is visualized.Periventricular hypodensiti es are nonspecific but likely represent sequelaeof microvascular ischemic disease. The alfaro-white matter differentiation ispreserved. The mastoid air cells and visualized paranasal air sinuses are clear. Thecalvarium and central skull base are unremarkable. CERVICAL SPINE: No acute fracture or dislocation. Multilevel degenerative changesthroughout the cervical spine with stepwise grade 1 anterolisthesis of C3on C4 and C4 on C5 with slight reversal of normal cervical lordosiscentered about C5. Disc height loss noted most predominantly at C5/C6 andC6/C7. The craniocervical junction is intact. Prevertebral soft tissues arewithin normal limits. Extensive calcifications noted at the right greater than left carotidbulbs. The visualized lung apices and thyroid gland are unremarkable.[facility] [id number] 14:09:22* Test Item Value Reference Range Interpretation Comme nts TROPONIN I (test code = 3505099039) 0.010 ng/mL <=0.034 ROMINA (test code = ROMINA) [...] of biotin. Lab Interpretation (test code = 43027-2) Normal [facility] 1 [id number] 14:08:28HISTORY: Syncope. TECHNIQUE: Portable AP view of the chest is obtained. No prior chest studyavailable for comparison. FINDINGS: Elevated left hemidiaphragm noted with minimal chronic changes offibrosis in the left lung base. Atherosclerosis with calcification in theaortic arch noted. No acute pneumonia. No pneumothorax or pleural effusionor pulmonary congestion detected. Cardiac size is within normal limits. CONCLUSIONS: No signs of acute cardiopulmonary disease.[facility]inal [id number]-[id number] 14:06:45* Test Item Value Reference Range Interpretation Comme [facility] NT-proBNP (test code = 35018-1) 726 pg/mL <=125 ROMINA (test code = ROMINA) Result Indeterminate-Consid er causes of NT-proBNP elevation other than Heart failure such as acute coronary syndrome, pulmonary embolism, pulmonary hypertension, sepsis, stroke, and renal dysfunction. Lab Interpretation (test code = 90416-3) Abnormal [facility] Met[facility] Panel (75553)2023-12-05 13:58:03* Test Item Value Reference Range Interpretation Comme nts NA (test code = 9333955379) 134 mmol/L 135-145 L K (test code = 1305009326) 5.4 mmol/L 3.5-5.0 H CL (test code = 6822872848) 106 mmol/L 98-108 CO2 TOTAL (test code = 4749935121) 19 mmol/L 23-31 L AGAP (test code = 7222348293) 9 2-16 BUN (test code = 6873097462) 42 mg/dL 7-23 H GLUCOSE (test code = 1796034563) 106 mg/dL 70-110 CREATININE (test code = 2160-0) 2.36 mg/dL 0.60-1.25 H TOTAL BILI (test code = 5798137327) 0.7 mg/dL 0.1-1.1 CALCIUM (test code = 9307762904) 8.9 mg/dL 8.6-10.6 T PROTEIN (test code = 7232436287) 6.9 g/dL 6.3-8.2 ALBUMIN (test code = 8532504401) 4.2 g/dL 3.5-5.0 ALK PHOS (test code = 6023326271) 81 U/L 34-122 ALTv (test code = 1742-6) 24 U/L 5-50 AST(SGOT) (test code = 8981396760) 27 U/L 13-40 eGFR (test code = 04468-7) 27.7 mL/min/1.73m2 CKD-EPI eGFR (2020). Assuming creatinine has been stable day-to-day for at least three months, the eGFR indicates Category G4 (15 - 29 mL/min/1.73 m2) Lab Interpretation (test code = 68859-7) Abnormal [facility] with [id number] 13:51:59* Test Item Value Reference Range Interpretation Comme nts WBC (test code = 6690-2) 6.92 4.20-10.70 RBC (test code = 789-8) 4.55 4.26-5.52 HGB (test code = 718-7) 13.3 g/dL 12.2-16.4 HCT (test code = 4544-3) 41.4 % 38.4-49.3 MCV (test code = 787-2) 91.0 fL 81.7-95.6 MCH (test code = 785-6) 29.2 pg 26.1-32.7 MCHC (test code = 786-4) 32.1 g/dL 31.2-35.0 RDW-SD (test code = 87121-7) 47.1 fL 38.5-51.6 RDW-CV (test code = 788-0) 14.3 % 12.1-15.4 PLT (test code = 777-3) 174 150-328 MPV (test code = 25157-1) 11.7 fL 9.8-13.0 NRBC/100 WBC (test code = 0474725305) 0.0 0.0-10.0 NRBC x10^3 (test code = 3331735836) See_Comment [Automated me ssage] The system which generated this result transmitted reference range: 10*3/?L. The reference range was not used to interpret this result as normal/abnormal. GRAN MAT (NEUT) % (test code = 770-8) 61.5 % IMM GRAN % (test code = 8607244358) 0.40 % LYMPH % (test code = 736-9) 28.6 % MONO % (test code = 5905-5) 7.9 % EOS % (test code = 713-8) 0.9 % BASO % (test code = 706-2) 0.7 % GRAN MAT x10^3(ANC) (test code = 5625211237) 4.25 10*3/uL 1.99-6.95 IMM GRAN x10^3 (test code = 7743409361) 0.03 10*3/uL 0.00-0.06 LYMPH x10^3 (test code = 731-0) 1.98 10*3/uL 1.09-3.23 MONO x10^3 (test code = 742-7) 0.55 10*3/uL 0.36-1.02 EOS x10^3 (test code = 711-2) 0.06 10*3/uL 0.06-0.53 BASO x10^3 (test code = 704-7) 0.05 10*3/uL 0.01-0.09 [facility] GLUCOSE (AUTOMATED)2023-12-05 13:17:57* Test Item Value Reference Range Interpretation Comme nts POCT GLU (test code = 1184877877) 89 mg/dL 70-110 Lab Interpretation (test cod e = 66272-5) Normal [facility] [id number] 20:33:31* Test Item Value Reference Range Interpretation Comme nts TROPONIN I (test code = 1829397550) 0.007 ng/mL <=0.034 ROMINA (test code = [...] of biotin. Lab Interpretation (test code = 75677-6) Normal [facility]. METABOLIC PANEL (85929)2023-01-15 20:22:53* Test Item Value Reference Range Interpretation Comme nts NA (test code = 2058661616) 135 mmol/L 135-145 K (test code = 8889758914) 5.4 mmol/L 3.5-5.0 H CL (test code = 3041636431) 106 mmol/L 98-108 CO2 TOTAL (test code = 8506148946) 22 mmol/L 23-31 L AGAP (test code = 8923048699) 7 2-16 BUN (test code = 4484818970) 23 mg/dL 7-23 GLUCOSE (test code = 3438793745) 135 mg/dL 70-110 H CREATININE (test code = 0907004698) 2.05 mg/dL 0.60-1.25 H TOTAL BILI (test code = 9646390286) 0.5 mg/dL 0.1-1.1 CALCIUM (test code = 8757658611) 8.6 mg/dL 8.6-10.6 T PROTEIN (test code = 8194265633) 6.5 g/dL 6.3-8.2 ALBUMIN (test code = 5773962995) 3.6 g/dL 3.5-5.0 ALK PHOS (test code = 5276338208) 74 U/L 34-122 ALTv (test code = 1742-6) 17 U/L 5-50 AST(SGOT) (test code = 4461939116) 24 U/L 13-40 eGFR (test code = 5579548186) 31.7 mL/min/1.73m2 ROMINA (test code = ROMINA) [...] imaging tests). Lab Interpretation (test code = 55153-4) Abnormal [facility] WITH [id number] 20:13:15* Test Item Value Reference Range Interpretation Comme nts WBC (test code = 6690-2) 6.78 See_Comment [Automated messa ge] The system which generated this result transmitted reference range: 4.20 - 10.70 10*3/?L. The reference range was not used to interpret this result as normal/abnormal. RBC (test code = 789-8) 4.48 See_Comment [Automated [employer]] The system which generated this result [...] 32.8 g/dL 31.2-35.0 RDW-SD (test code = 83826-5) 43.1 fL 38.5-51.6 RDW-CV (test code = 788-0) 13.3 % 12.1-15.4 PLT (test code = 777-3) 239 See_Comment [Automated [employer]] The system which generated this result transmitted reference range: 150 - 328 10*3/?L. The reference range was not used to interpret this result as normal/abnormal. MPV (test code = 86944-0) 11.3 fL 9.8-13.0 NRBC/100 WBC (test code = 8081072727) 0.0 See_Comment [Automated [employer] ssage] The system which generated this result transmitted reference range: 0.0 - 10.0 /100 WBCs. The reference range was not used to interpret this result as normal/abnormal. NRBC x10^3 (test code = 2872435719) See_Comment [Automated [employer] ssage] The system which generated this result transmitted reference range: 10*3/?L. The reference range was not used to interpret this result as normal/abnormal. GRAN MAT (NEUT) % (test code = 770-8) 66.6 % IMM GRAN % (test code = 5200061701) 0.40 % LYMPH % (test code = 736-9) 25.7 % MONO % (test code = 5905-5) 5.9 % EOS % (test code = 713-8) 1.0 % BASO % (test code = 706-2) 0.4 % GRAN MAT x10^3(ANC) (test code = 0206807969) 4.51 10*3/uL 1.99-6.95 IMM GRAN x10^3 (test code = 6074485581) 0.03 10*3/uL 0.00-0.06 LYMPH x10^3 (test code = 731-0) 1.74 10*3/uL 1.09-3.23 MONO x10^3 (test code = 742-7) 0.40 10*3/uL 0.36-1.02 EOS x10^3 (test code = 711-2) 0.07 10*3/uL 0.06-0.53 BASO x10^3 (test code = 704-7) 0.03 10*3/uL 0.01-0.09 [facility] (55453)2023-01-02 18:18:34* Test Item Value Reference Range Interpretation Comme nts NA (test code = 1656399326) 136 mmol/L 135-145 K (test code = 1756122467) 4.7 mmol/L 3.5-5.0 CL (test code = 5028314295) 103 mmol/L 98-108 CO2 TOTAL (test code = 0180173734) 18 mmol/L 23-31 L AGAP (test code = 2581716560) 15 2-16 BUN (test code = 2639373282) 40 mg/dL 7-23 H GLUCOSE (test code = 9227029515) 154 mg/dL 70-110 H CREATININE (test code = 9121561236) 2.46 mg/dL 0.60-1.25 H TOTAL BILI (test code = 0753958568) 0.7 mg/dL 0.1-1.1 CALCIUM (test code = 7643119088) 8.6 mg/dL 8.6-10.6 T PROTEIN (test code = 1586274623) 6.3 g/dL 6.3-8.2 ALBUMIN (test code = 8787855943) 3.7 g/dL 3.5-5.0 ALK PHOS (test code = 3380969522) 77 U/L 34-122 ALTv (test code = 1742-6) 15 U/L 5-50 AST(SGOT) (test code = 6172995312) 23 U/L 13-40 eGFR (test code = 1413071216) 25.7 mL/min/1.73m2 ROMINA (test code = ROMINA) [...] imaging tests). Lab Interpretation (test code = 97516-5) [facility]normal [facility] 18:18:34* Test Item Value Reference Range Interpretation Comme nts LIPASE (test code = 5647579834) 159 U/L 0-220 Lab Interpretation (test cod e = 39819-9) Normal [facility] [id number] 18:00:33* Test Item Value Reference Range Interpretation [...] 33.7 g/dL 31.2-35.0 RDW-SD (test code = 73111-7) 43.6 fL 38.5-51.6 RDW-CV (test code = 788-0) 13.3 % 12.1-15.4 PLT (test code = 777-3) 162 See_Comment [Automated [employer]] The system which generated this result transmitted reference range: 150 - 328 10*3/?L. The reference range was not used to interpret this result as normal/abnormal. MPV (test code = 31405-4) 12.7 fL 9.8-13.0 NRBC/100 WBC (test code = 8619266338) 0.0 See_Comment [Automated [employer] ssage] The system which generated this result transmitted reference range: 0.0 - 10.0 /100 WBCs. The reference range was not used to interpret this result as normal/abnormal. NRBC x10^3 (test code = 4121626724) See_Comment [Automated [employer]] The system which generated this result transmitted reference range: 10*3/?L. The reference range was not used to interpret this result as normal/abnormal. GRAN MAT (NEUT) % (test code = 770-8) 75.0 % IMM GRAN % (test code = 8906934705) 0.60 % LYMPH % (test code = 736-9) 17.4 % MONO % (test code = 5905-5) 6.0 % EOS % (test code = 713-8) 0.6 % BASO % (test code = 706-2) 0.4 % GRAN MAT x10^3(ANC) (test code = 2908182727) 5.35 10*3/uL 1.99-6.95 IMM GRAN x10^3 (test code = 8988726892) 0.04 10*3/uL 0.00-0.06 LYMPH x10^3 (test code = 731-0) 1.24 10*3/uL 1.09-3.23 MONO x10^3 (test code = 742-7) 0.43 10*3/uL 0.36-1.02 EOS x10^3 (test code = 711-2) 0.04 10*3/uL 0.06-0.53 L BASO x10^3 (test code = 704-7) 0.03 10*3/uL 0.01-0.09 Lab Interpretation (test code = 88598-4) Abnormal [facility] Wsversy7230-21-80 10:41:53* Test Item Value Reference Range Interpretation Comme nts Glucose POC (test code = Glucose POC) 140 mg/dL 70-115 H Notify RN or MDIf you consider your patient critically ill, the Sj-Accu Check Infrom II meter should not be used for Glucose determination. Draw a venous Glucose and send to the main Lab for analysis. POC Lmylwsh5922-05-32 07:11:51* Test Item Value Reference Range Interpretation Comme nts Glucose POC (test code = Glucose POC) 118 mg/dL 70-115 H Notify RN or MDIf you consider your patient critically ill, the Sj-Accu Check Infrom II meter should not be used for Glucose determination. Draw a venous Glucose and send to the main Lab for analysis. POC Gtlauqw5890-58-17 19:44:19* Test Item Value Reference Range Interpretation Comme nts Glucose POC (test code = Glucose POC) 151 mg/dL 70-115 H Notify RN or MDIf you consider your patient critically ill, the Sj-Accu Check Infrom II meter should not be used for Glucose determination. Draw a venous Glucose and send to the main Lab for analysis. POC Xtnugam8173-18-93 15:05:21* Test Item Value Reference Range Interpretation Comme nts Glucose POC (test code = Glucose POC) 119 mg/dL 70-115 H Notify RN or MDIf you consider your patient critically ill, the Sj-Accu Check Infrom II meter should not be used for Glucose determination. Draw a venous Glucose and send to the main Lab for analysis. POC Ckapdym0264-45-91 11:16:17* Test Item Value Reference Range Interpretation Comme nts Glucose POC (test code = Glucose POC) 132 mg/dL 70-115 H Notify RN or MDIf you consider your patient critically ill, the Sj-Accu Check Infrom II meter should not be used for Glucose determination. Draw a venous Glucose and send to the main Lab for analysis. POC Umzkyxg4492-97-80 06:17:22* Test Item Value Reference Range Interpretation Comme nts Glucose POC (test code = Glucose POC) 121 mg/dL 70-115 H Notify RN or MDIf you consider your patient critically ill, the Sj-Accu Check Infrom II meter should not be used for Glucose determination. Draw a venous Glucose and send to the main Lab for analysis. POC Wzawhro4990-41-45 20:10:13* Test Item Value Reference Range Interpretation Comme nts Glucose POC (test code = Glucose POC) 133 mg/dL 70-115 H If you consi eve your patient critically ill, the Sj-Accu Check Infrom II meter should not be used for Glucose determination. Draw a venous Glucose and send to the main Lab for analysis. POC Zfxjpkm8188-07-16 06:13:49* Test Item Value Reference Range Interpretation Comme nts Glucose POC (test code = Glucose POC) 116 mg/dL 70-115 H If you consi eve your patient critically ill, the Sj-Accu Check Infrom II meter should not be used for Glucose determination. Draw a venous Glucose and send to the main Lab for analysis. POC Eizydqz8220-07-26 19:55:46* Test Item Value Reference Range Interpretation Comme nts Glucose POC (test code = Glucose POC) 121 mg/dL 70-115 H If you consi eve your patient critically ill, the Sj-Accu Check Infrom II meter should not be used for Glucose determination. Draw a venous Glucose and send to the main Lab for analysis. POC Oiwteja3190-88-70 16:21:40* Test Item Value Reference Range Interpretation Comme nts Glucose POC (test code = Glucose POC) 126 mg/dL 70-115 H Notify RN or MDIf you consider your patient critically ill, the Sj-Accu Check Infrom II meter should not be used for Glucose determination. Draw a venous Glucose and send to the main Lab for analysis. POC Gizmkjb9936-47-65 12:10:14* Test Item Value Reference Range Interpretation Comme nts Glucose POC (test code = Glucose POC) 138 mg/dL 70-115 H Notify RN or MDIf you consider your patient critically ill, the Sj-Accu Check Infrom II meter should not be used for Glucose determination. Draw a venous Glucose and send to the main Lab for analysis. POC Iyfyzcb9731-47-63 06:38:10* Test Item Value Reference Range Interpretation Comme nts Glucose POC (test code = Glucose POC) 112 mg/dL 70-115 If you consi eve your patient critically ill, the Sj-Accu Check Infrom II meter should not be used for Glucose determination. Draw a venous Glucose and send to the main Lab for analysis. POC Ezibrzk7774-08-23 19:46:42* Test Item Value Reference Range Interpretation Comme nts Glucose POC (test code = Glucose POC) 107 mg/dL 70-115 If you consi eve your patient critically ill, the Sj-Accu Check Infrom II meter should not be used for Glucose determination. Draw a venous Glucose and send to the main Lab for analysis. RPR Kjcqaojczck5283-63-65 15:31:56* Test Item Value Reference Range Interpretation [...] code = Expiration Dt) 05-29-20 N POC Knpstoq2264-41-35 15:06:05* Test Item Value Reference Range Interpretation Comme nts Glucose POC (test code = Glucose POC) 118 mg/dL 70-115 H Notify RN or MDIf you consider your patient critically ill, the Sj-Accu Check Infrom II meter should not be used for Glucose determination. Draw a venous Glucose and send to the main Lab for analysis. POC Uqzxljz9233-21-47 11:12:35* Test Item Value Reference Range Interpretation Comme nts Glucose POC (test code = Glucose POC) 146 mg/dL 70-115 H If you consi eve your patient critically ill, the Js-Accu Check Infrom II meter should not be used for Glucose determination. Draw a venous Glucose and send to the main Lab for analysis. POC Ogvzasb4040-23-15 07:42:11* Test Item Value Reference Range Interpretation Comme nts Glucose POC (test code = Glucose POC) 122 mg/dL 70-115 H If you consi eve your patient critically ill, the Sj-Accu Check Infrom II meter should not be used for Glucose determination. Draw a venous Glucose and send to the main Lab for analysis. POC Fcutwah5782-53-20 19:17:06* Test Item Value Reference Range Interpretation Comme nts Glucose POC (test code = Glucose POC) 114 mg/dL 70-115 If you consi eve your patient critically ill, the Sj-Accu Check Infrom II meter should not be used for Glucose determination. Draw a venous Glucose and send to the main Lab for analysis. Urinalysis Cqzcogftloz4540-30-83 12:27:32* Test Item Value Reference Range Interpretation Comme nts UA WBC (test code = UA WBC) 0-5 0-5 UA RBC (test code = UA RBC) 0-5 0-5 UA Squam Epithelial (test co de = UA Squam Epithelial) 0-5 Comprehensive Metabolic Xdmtm0893-01-57 12:12:02* Test Item Value Reference Range Interpretation [...] A/G Ratio) 1.6 ratio N Comprehensive Metabolic Wqdjh2742-03-57 12:12:02* Test Item Value Reference Range Interpretation [...] is not provided, and the patient is -Czech, multiply by 1.212. If sex is not [...] the National Kidney Foundation, http://nkdep.nih.gov Comprehensive Metabolic Qqdlt0502-07-08 12:12:02* Test Item Value Reference Range Interpretation [...] is not provided, and the patient is -Czech, multiply by 1.212. If sex is not [...] is not provided, and the patient is -Czech, multiply by 1.212. If sex is not [...] the National Kidney Foundation, http://nkdep.nih.gov Urine Drug Iqyvlx7789-00-93 12:01:40* Test Item Value Reference Range Interpretation [...] test if desired. Complete Blood Count with Godqyejkujib4057-09-28 11:38:14* Test Item Value Reference Range Interpretation [...] code = IPF) 0 % N Automated Jovahvnhccks5284-07-68 11:38:14* Test Item Value Reference Range Interpretation Comme nts Neutro Auto (test code = Joshua tro Auto) 76.4 % 36.0-70.0 H Lymph Auto (test code = Lymph Auto) 15.8 % 12.0-44.0 [place] Auto (test code = [place] Auto) 6.7 % 0.0-11.0 Eos, Auto (test code = Eos, Auto) 0.3 % 0.0-7.0 Basophil Auto (test code = B asophil Auto) 0.4 % 0.0-2.0 Neutro Absolute (test code = Neutro Absolute) 5.3 x10 1.6-7.4 Lymph Absolute (test code = Lymph Absolute) 1.09 x10 .50-4.60 [place] Absolute (test code = M caitlin Absolute) .46 x10 .00-1.20 Eos Absolute (test code = Eo s Absolute) 0.02 x10 0.00-0.74 Baso Absolute (test code = B aso Absolute) 0.03 x10 0.00-0.21 IG [id number] 11:38:14* Test Item Value Reference Range Interpretation Comme nts IG (test code = IG) 0.4 % 0.0-5.0 IG Abs (test code = IG Abs) 0 x10 N Urinalysis with Culture, if noeqenjui1033-86-36 11:37:19* Test Item Value Reference Range Interpretation [...] cre ated by rule GL_SJM_UA_MICRO_IN D POC Lquybwz9718-11-43 11:07:06* Test Item Value Reference Range Interpretation Comme nts Glucose POC (test code = Glucose POC) 123 mg/dL 70-115 H If you consi eve your patient critically ill, the Sj-Accu Check Infrom II meter should not be used for Glucose determination. Draw a venous Glucose and send to the main Lab for analysis. Notes Date/Time Note Provider Source [facility]2024-11-16 19:32:49 Please follow up with your d octor as needed THANK YOU FOR CHOOSING US FOR YOUR MEDICAL CARE AND IT WAS A PLEASURE TO TAKE CARE OF YOU: TAMMY EDWARDS, MSN, INVENTORY COORDINATOR, [employer] WEIGHMASTER-BC DIAGNOSIS: HERNIA OF ABDOMINAL WALL PRESCRIPTION: NONE FOLLOW UP: PRIMARY CARE IN 2 DAYS *RETURN TO ER FOR WORSENING OF SYMPTOMS* INSTRUCTIONS: PLENTY OF FLUIDS CLEAR LIQUIDS AND ADVANCE UP TOLERATED BLAND DIET: NO FATTY, FRIED, OR SPICY FOODS TYLENOL AND IBUPROFEN NEEDED GOOD INFECTION CONTROL - SUCH HANDWASHING Future Tests Future scheduled test information is unavailable Pending Tests Pending diagnostic test information is unavailable Future Visits Future appointment information is unavailable Referrals to Other Providers <thead> Reason for Referral Referral Start Date Provider Provider Contact Information Provider Address NO PHYSICIAN NO PHYSICIAN NO PHYSICIAN Future Procedures <thead> Procedure Name Ordered Date Scheduled Date Case Management Consultation June 11, 2024 1:24pm June 11, 2024 Future Medications Future medication information is unavailable Patient Instructions <tbody> Preventive Care 65 Years and Older, Male Hernia, Adult, Cqxx-jj-Hemx Preventive Care 65 Years and Older, Male [facility]2024-11-16 19:32:49 Patient Care Team <thead> Team Status: Active Member Role Status Dates . NO PHYSICIAN primary care physician Active . NO PHYSICIAN Primary Care Physician Active DIOR RUSH MD Emergency Provider Active LAUREN MEHTA MD Emergency Provider Active BARBARA MCCALL Next of Kin Active BARBARA MCCALL Emergency Contact Active [facility] Jvb9011-86-44 18:50:23 Patient Care Team <thead> Team Status: Active Member Role Status Dates . NO PHYSICIAN primary care physician Active . NO PHYSICIAN Primary Care Physician Active DIOR RUSH MD Emergency Provider Active BARBARA MCCALL Next of Kin Active BARBARA MCCALL Emergency Contact Active [facility]2024-11-14 18:50:23 [facility]2024-11-14 18:50:23 Please follow up with your d octor as needed THANK YOU FOR CHOOSING US FOR YOUR MEDICAL CARE AND IT WAS A PLEASURE TO TAKE CARE OF YOU: TAMMY EDWARDS, MSN, INVENTORY COORDINATOR, [employer] WEIGH[employer]STER-BC DIAGNOSIS: HERNIA OF ABDOMINAL WALL PRESCRIPTION: NONE FOLLOW UP: PRIMARY CARE IN 2 DAYS *RETURN TO ER FOR WORSENING OF SYMPTOMS* INSTRUCTIONS: PLENTY OF FLUIDS CLEAR LIQUIDS AND ADVANCE UP TOLERATED BLAND DIET: NO FATTY, FRIED, OR SPICY FOODS TYLENOL AND IBUPROFEN NEEDED GOOD INFECTION CONTROL - SUCH HANDWASHING Future Tests Future scheduled test information is unavailable Pending Tests Pending diagnostic test information is unavailable Future Visits Future appointment information is unavailable Referrals to Other Providers <thead> Reason for Referral Referral Start Date Provider Provider Contact Information Provider Address NO PHYSICIAN NO PHYSICIAN Future Procedures <thead> Procedure Name Ordered Date Scheduled Date Case Management Consultation June 11, 2024 1:24pm June 11, 2024 Future Medications Future medication information is unavailable Patient Instructions <tbody> Preventive Care 65 Years and Older, Male Hernia, Adult, Ogos-nr-Lurc [facility]2024-11-10 11:15:43 MSE Pt offered resources which he refused. Pt refused taxi ride to [place]. Pt stated he would call his road equipment operator. Pt provided ER phone to make phone calls. [facility] 10:12:54 Barbara Mccall is a 78 year old male arrive via [facility] from the [facility], called because had nothing to eat for 2 days, wants a ride to [facility], pt alert in no distress, Bgl 118, CUTTER Kristen Spencer [facility] HospitalDzzaiu2894-42-87 06:06:48 Awake, alert oriented X4, respiratory even and unlabored,skin w/d color appropriate for race, pt encouraged to follow up with pcp and or return as needed. Pt given printed and verbal discharge instructions regarding abdominal pain and bladder spasms. Patient verbalized understanding and signature obtained, patient denies any other concerns. Advised to seek medical attention for new/prolonged/worsening of symptoms. No adverse reaction to meds given in ER noted upon discharge. Pt taken to lobby via wheelchair by ED RN. social worker health services consulted for possible options for shelters. A Kim [facility]kytds3389-50-87 23:01:00 Patient discharge holding; pt has no place to be discharged to. [facility]2024-11-07 17:39:25 Brought in by [facility] for abdominal pain and diarrhea x1 week. Patient was at [facility] this AM but left AMA. Now here. HX: colon ressection, HTN. CUTTER Yojana Pedro [facility]zxrqg1736-43-09 17:38:00 [facility] Emergency Department Note Patient Name: Barbara Mccall Date of : 1945 78 year old male Treatment Room: [place] [address] Primary Care Physician: Safia Iyer Patient Escorted by: Self [9] Mode of Arrival: EMS - [facility] ([place]) [43] EMS Treatment Prior to ED Arrival: Travel and Exposure Screening: Symptoms Does patient have any of these symptoms?: (not recorded) Exposure Screening Has patient had contact with someone with a communicable disease in the last month?: (not recorded) Diseases exposed to:: (not recorded) Is Patient ?: (not recorded) Exposure Date: (not recorded) Chief Complaint: Chief Complaint Patient presents with Abdominal Pain History of Present Illness: History provided by: 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 Episodes started a week ago. Patient was seen at [facility] a week ago. Patient was admitted. CT and labs were done during his stay at [facility]. Left AMA today and came to this ED since his issues have not resolved. Timing: Intermittent Progression: Unchanged Relieved by: Nothing Worsened by: Nothing Associated symptoms: abdominal pain Associated symptoms: no fever and no vomiting Past Medical History/Immunizations: Past Medical History: Diagnosis Date Calculus of kidney h/o multiple kidney stones - last 2005 Diverticulosis of colon with hemorrhage Injury, other and unspecified 1986 finger laceration Other and unspecified hyperlipidemia Other closed fracture of tarsal and metatarsal bones childhood Overweight and obesity Personal history of tobacco use, presenting hazards to health Type II or unspecified type diabetes mellitus without mention of complication, not stated as uncontrolled Unspecified essential hypertension Allergies: No Known Allergies Past Social History: Tobacco Use Every Day; 1.5 packs/day; Smoked an average of 1.5 packs/day for 20.0 years; Types: Cigarettes Comments: has quit off/on for up to 7 years Alcohol Use Yes. Comments: 0-2 drinks/month Drug Use No. Sexual Activity Sexually active; Partners: Female. Past Surgical History: Past Surgical History: Procedure Laterality Date COLECTOMY 1992, Diverticulitis OTHER childhood broken foot surgery OTHER 1995 colon removal REMV KID STONE,XTRA SURG OPERATN 2005 Review of Systems: Review of Systems Constitutional: Negative. Negative for appetite change and fever. HENT: Negative. Eyes: Negative. Respiratory: Negative. Negative for shortness of breath. Breasts: Negative. Cardiovascular: Negative. Negative for chest pain. Gastrointestinal: Positive for abdominal pain, diarrhea and nausea. Negative for vomiting. Genitourinary: Negative. Musculoskeletal: Negative. Skin: Negative. Neurological: Positive for dizziness. Psychiatric/Behavioral: Negative. All other systems reviewed and are negative. Physical Exam: ED Triage Vitals [06/05/24 1741] Weight 77.1 kg (170 lb) Actual or estimated Height 1.778 m (5' 10") BP 136/74 Pulse 99 Resp 16 Temp 37.1 ?C (98.8 ?F) Temp src SpO2 100 % Measured on Room air Physical Exam Vitals and nursing note reviewed. Constitutional: General: He is not in acute distress. Appearance: He is not ill-appearing or toxic-appearing. HENT: Head: Normocephalic and atraumatic. Right Ear: External ear normal. Left Ear: External ear normal. Nose: Nose normal. Mouth/Throat: Mouth: Mucous membranes are moist. Pharynx: Oropharynx is clear. Eyes: Extraocular Movements: Extraocular movements intact. Conjunctiva/sclera: Conjunctivae normal. Pupils: Pupils are equal, round, and reactive to light. Cardiovascular: Rate and Rhythm: Normal rate and regular rhythm. Pulses: Normal pulses. Heart sounds: Normal heart sounds. Pulmonary: Effort: Pulmonary effort is normal. Breath sounds: Normal breath sounds. Abdominal: General: Bowel sounds are normal. There is no distension. Palpations: Abdomen is soft. Tenderness: There is no abdominal tenderness. There is no guarding. Musculoskeletal: Cervical back: Normal range of motion and neck supple. Comments: In wheelchair Skin: General: Skin is warm and dry. Capillary Refill: Capillary refill takes less than 2 seconds. Neurological: General: No focal deficit present. Mental Status: He is alert. Psychiatric: Mood and Affect: Mood normal. Behavior: Behavior normal. Radiology: No orders to display Lab Results: Lab Results - No data to display EKG: If EKG completed, see Procedure Note. Orders and Treatments: Orders Placed This Encounter Procedures CT ABDOMEN PELVIS WO CONTRAST CBC WITH DIFF BASIC METABOLIC PANEL (NA, K, CL, CO2, GLUCOSE, BUN, CREATININE, CA) HEPATIC FUNCTION PANEL (69377) (ALB,T.PRO,BILI T,BU/BC,ALT,AST,ALK PHOS) LIPASE URINALYSIS No orders of the defined types were placed in this encounter. First Provider Eval: ED Events Date/Time Event User Comments 06/05/241747 Medical Screening Begins DOMI LAAMR -- 06/05/241747 First Provider Evaluation DOMI LAMAR -- ED COURSE ED Course as of 06/05/24 2213 Amy Jun 05, [id number] Care transferred to Dr. Bunch. See his notes for further details of this encounter. [CH] 1740 Patient is a 78yo M that presents to ER for c/o continued abd pain with diarrhea x 1 week. He was seen at [facility] and was admitted on 06/01/24 with noted DANIEL, normal CT scan. Per EMS he signed out AMA today. Patient presents to ER and reports symptoms are still present. Hx colon resection and HTN Will repeat labs Will assess CT abd/pel Dispo to be determined by work-up and patient re-evaluation. [CH] ED Course User Index [CH] Domi Lamar FNP Diagnosis/Impression as of 06/05/24 2213 Abdominal pain, unspecified abdominal location Bladder spasm Procedures: Procedures MDM: Medical Decision Making Patient was evaluated for an emergency medical condition related to Abdominal Pain . Differential diagnoses considered by presenting complaints but not limited to: Abdominal Pain (acute) Bowel Obstruction Diarrhea Diverticulitis (acute) Pancreatitis (acute) Pyelonephritis Urinary Tract Infection Vomiting. Problems Addressed: Abdominal pain, unspecified abdominal location: acute illness or injury Amount and/or Complexity of Data Reviewed External Data Reviewed: labs, radiology and notes. Details: Reviewed admission notes from [facility] Labs: ordered. Radiology: ordered. Flowsheet Documentation: Scoring Tools: No data recorded Disposition/Condition: Care transferred to MD Discharge Medications: Patient's Medications START taking these medications No medications on file CONTINUE taking these medications which have NOT CHANGED BLOOD SUGAR DIAGNOSTIC (CHEMSTRIP BG) STRIP CIPROFLOXACIN HCL (CILOXAN) 0.3 % OPTHALMIC DROPS Place 1 Drop in right eye 4 (four) times daily. DICLOFENAC (VOLTAREN) 0.1 % OPHTHALMIC SOLUTION Place 1 Drop in right eye 4 (four) times daily. FISH OIL ORAL po bid HYDROCORTISONE 2.5 % RECTAL CREAM Insert into rectum 2 (two) times daily. LANTUS SOLOSTAR 100 UNIT/ML (3 ML) INPN MECLIZINE 25 MG TABLET Take 1 tablet by mouth 3 (three) times daily as needed for Dizziness. METFORMIN 500 MG TABLET Take 1 tablet by mouth in the morning and 1 tablet in the evening. METOPROLOL TARTRATE (LOPRESSOR) 50 MG TABLET MULTIVITAMIN ORAL LIQD one daily PREDNISOLONE ACETATE (PRED-FORTE) 1 % OPHTHALMIC SUSPENSION DROPS Place 1 Drop in right eye 4 (four) times daily. START taking Modified Medications as Prescribed No medications on file STOP taking these medications No medications on file Follow-up: pending Electronically signed by: Domi Lamar FNP 06/05/241950 CUTTER Associated attestation - Kevon Bunch DO - 06/05/2024 10:20 PM PLUG CUTTER I was available for consultation at all times during the patient encounter and present in the Emergency Department providing general supervision. However, I did not see or evaluate the patient. Patient seen and evaluated by GAVIN. [id number] 15:43:40 Pt given printed and verbal discharge instructions regarding dizziness, encouraged hydration, Pt verbalized understanding of instructions, pt awake alert oriented, resp reg unlabored, skin w/d, color appropriate for race, moves all ext well,pt encouraged to follow up with pcp. Advised to seek medical attention for new/prolonged/worsening of symptoms. PIV d'cd, dressing to site, catheter in tact. Awake, alert oriented, resp reg unlabored, skin w/d, pt leaving amb with steady gait, in no apparent distress, Daya Garcia [facility] [id number] 12:24:00 [facility] states: "Patient states he felt dizzy when he stood up. BGL of 175 mg/dL. 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 He reportedly got up this morning and felt fine and ate his breakfast normally. He was then getting up to turn on the TV to watch football when he felt dizzy. He sat back down and called 911. He does complain of shortness of breath. No chest pain or pressure. No cough or congestion. No fevers. No sick contacts. He denies smoking cigarettes but does smell of cigarettes. He has a history of diabetes, high blood pressure as well as high cholesterol. He denies passing out. Here for evaluation. Past Medical History/Immunizations: Past Medical History: Diagnosis Date Calculus of kidney h/o multiple kidney stones - last 2005 Diverticulosis of colon with hemorrhage Injury, other and unspecified 1986 finger laceration Other and unspecified hyperlipidemia Other closed fracture of tarsal and metatarsal bones childhood Overweight and obesity Personal history of tobacco use, presenting hazards to health Type II or unspecified type diabetes mellitus without mention of complication, not stated as uncontrolled Unspecified essential hypertension Tetanus received in last 5 years: Unknown Allergies: No Known Allergies Past Social History: Tobacco Use Every Day; 1.5 packs/day; Smoked an average of 1.5 packs/day for 20.0 years; Types: Cigarettes Comments: has quit off/on for up to 7 years Alcohol Use Yes. Comments: 0-2 drinks/month Drug Use No. Sexual Activity Sexually active; Partners: Female. Past Surgical History: Past Surgical History: Procedure Laterality Date COLECTOMY 1992, Diverticulitis OTHER childhood broken foot surgery OTHER 1995 colon removal REMV KID STONE,XTRA SURG OPERATN 2006 Review of Systems: Review of Systems Constitutional: Negative for chills and fever. Respiratory: Positive for shortness of breath. Negative for cough. Cardiovascular: Negative for chest pain. Gastrointestinal: Negative for abdominal distention. Genitourinary: Negative for dysuria. Musculoskeletal: Negative for arthralgias, neck pain and neck stiffness. Skin: Negative for pallor. Neurological: Positive for dizziness. Negative for syncope. Psychiatric/Behavioral: Negative for agitation. Physical Exam: ED Triage Vitals [04/19/24 1224] Weight 79.8 kg (176 lb) Actual or estimated Estimated by patient/family report Height 1.778 m (5' 10") BP (!) 164/86 Pulse 80 Resp 17 Temp 37.1 ?C (98.7 ?F) Temp source Oral SpO2 98 % Measured on Room air Physical Exam Vitals and nursing note reviewed. Constitutional: Appearance: Normal appearance. HENT: Head: Normocephalic and atraumatic. Nose: Nose normal. Mouth/Throat: Mouth: Mucous membranes are dry. Cardiovascular: Rate and Rhythm: Normal rate and regular rhythm. Pulmonary: Effort: Pulmonary effort is normal. No respiratory distress. Breath sounds: No wheezing. Comments: No use of accessory muscles. He is able to speak in full and complete sentences without difficulty. Abdominal: General: There is no distension. Palpations: Abdomen is soft. There is no mass. Tenderness: There is no abdominal tenderness. There is no guarding. Hernia: No hernia is present. Musculoskeletal: General: Normal range of motion. Cervical back: Normal range of motion and neck supple. Skin: General: Skin is warm and dry. Neurological: General: No focal deficit present. Mental Status: He is alert and oriented to person, place, and time. Radiology: XR CHEST 1 VW Final Result EXAM: XR CHEST 1 VW HISTORY: 78 years-old Male with sob . TECHNIQUE: Single frontal view of the chest. COMPARISON: Chest radiograph from December 05, 2023 FINDINGS: Lines, tubes and devices: None. Lungs and pleura: The lungs are poorly expanded, with resultant bronchovascular crowding and perihilar vascular congestion. No focal opacities, pleural effusion or pneumothorax is visualized. Heart/Mediastinum: The cardiac silhouette appears normal accounting for technique and degree of inspiration. Calcified atherosclerosis along the aortic arch. Bones and soft tissues: No acute fracture, aggressive osseous lesion, or dislocation. No soft tissue abnormality. IMPRESSION No focal consolidation, pneumothorax, or pleural effusion. Preliminary Report Dictated by Resident: Jazmyn Hernández I, Rickey Abdi MD., have reviewed this study and agree with the above report. Lab Results: Lab Results CBC WITH DIFF - Abnormal Result Value Ref Range WBC 7.50 4.20 - 10.70 10*3/?L RBC 3.94 (*) 4.26 - 5.52 10*6/?L HGB 11.6 (*) 12.2 - 16.4 g/dL HCT 36.3 (*) 38.4 - 49.3 % MCV 92.1 81.7 - 95.6 fL MCH 29.4 26.1 - 32.7 pg MCHC 32.0 31.2 - 35.0 g/dL RDW-SD 45.7 38.5 - 51.6 fL RDW-CV 13.4 12.1 - 15.4 % PLT 145 (*) 150 - 328 10*3/?L MPV 11.9 9.8 - 13.0 fL NRBC/100 WBC 0.0 0.0 - 10.0 /100 WBCs NRBC x103<0.01 10*3/?L GRAN MAT (NEUT) % 70.3 % IMM GRAN % 0.30 % LYMPH % 18.8 % MONO % 9.3 % EOS % 0.8 % BASO % 0.5 % GRAN MAT x103(ANC) 5.27 1.99 - 6.95 10*3/uL IMM GRAN x103<0.03 0.00 - 0.06 10*3/uL LYMPH x1031.41 1.09 - 3.23 10*3/uL MONO x1030.70 0.36 - 1.02 10*3/uL EOS x1030.06 0.06 - 0.53 10*3/uL BASO x1030.04 0.01 - 0.09 10*3/uL COMP. METABOLIC PANEL (40930) - Abnormal NA 135 135 - 145 mmol/L K 5.4 (*) 3.5 - 5.0 mmol/L CL 107 98 - 108 mmol/L CO2 TOTAL 22 (*) 23 - 31 mmol/L AGAP 6 2 - 16 BUN 47 (*) 7 - 23 mg/dL GLUCOSE 135 (*) 70 - 110 mg/dL CREATININE 2.36 (*) 0.60 - 1.25 mg/dL TOTAL BILI 0.6 0.1 - 1.1 mg/dL CALCIUM 9.1 8.6 - 10.6 mg/dL T PROTEIN 6.7 6.3 - 8.2 g/dL ALBUMIN 3.8 3.5 - 5.0 g/dL ALK PHOS 56 34 - 122 U/L ALTv 21 5 - 50 U/L AST(SGOT) 31 13 - 40 U/L eGFR 27.7 mL/min/1.73m2 N-TERMINAL PRO-BNP - Abnormal NT-proBNP 960 <=125 pg/mL URINALYSIS - Abnormal APPEARANCE Clear Clear COLOR Yellow Yellow PH 5.0 4.8 - 8.0 SP GRAVITY 1.011 1.003 - 1.030 GLU U QUAL 50 mg/dL (*) Normal BLOOD Negative Negative KETONES Negative Negative PROTEIN 100 mg/dL (*) Negative UROBILIN Normal Normal BILIRUBIN Negative Negative NITRITE Negative Negative LEUK ANSELMO Negative Negative RBC/HPF 0 0 - 3 HPF WBC/HPF 1 0 - 5 HPF BACTERIA Few (*) Negative MUCOUS Slight (*) Negative LPF HYAL CAST 3 (*) <=2 LPF TROPONIN I - Normal TROPONIN I 0.010 <=0.034 ng/mL LIPASE - Normal LIPASE 210 0 - 220 U/L EKG: If EKG completed, see Procedure Note. Orders and Treatments: Orders Placed This Encounter Procedures XR CHEST 1 VW CBC WITH DIFF COMP. METABOLIC PANEL (36718) TROPONIN I N-TERMINAL PRO-BNP LIPASE URINALYSIS Orders Placed This Encounter Medications NaCl 0.9% (NS) bolus infusion 1,000 mL First Provider Eval: ED Events Date/Time Event User Comments 04/19/24 1228 Medical Screening Begins EMPERATRIZ MCFADDEN DO -- 04/19/24 1228 First Provider Evaluation EMPERATRIZ MCFADDEN DO -- ED COURSE Diagnosis/Impression as of 04/19/24 1531 Lightheaded Homelessness unspecified Procedures: EKG-12 Lead ROUTINE ONCE Date/Time: 04/19/2024 12:31 PM Performed by: Emperatriz Mcfadden DO Authorized by: Emperatriz Mcfadden DO ECG interpreted by ED Physician in the absence of a financial aid officer: yes Interpretation: Interpretation: normal Rate: ECG rate: 67 ECG rate assessment: normal Rhythm: Rhythm: sinus rhythm Ectopy: Ectopy: none QRS: QRS axis: Normal QRS intervals: Normal QRS conduction: RBBB ST segments: ST segments: Normal T waves: T waves: normal Q waves: Abnormal Q-waves: not present MDM: Medical Decision Making The patient presents with EMS from the [facility] room he is staying at complaining of dizziness. He reports he got up this morning and did his normal routine including eating breakfast. He felt fine during that time period. He then got up to turn on the TV to watch football when he felt himself get dizzy. He sat back down and called 911. No chest pain or pressure. He does complain of shortness of breath. No cough or congestion. No fevers or chills. He denies smoking cigarettes but does smell of tobacco. He has a history of high blood pressure, diabetes and high cholesterol. No headache. No syncope. Vital signs are stable in the ER. His heart is regular rhythm. His lungs are clear bilaterally. His abdomen is soft and nontender on examination. He has dry mucous membranes. He has full range of motion of all extremities x 4. His EKG shows a normal sinus rhythm with a right bundle branch block. Will monitor the patient here on telemetry for any possible arrhythmias. Will give a small bolus of IV fluids and check laboratory studies. Will also check a chest x-ray and a urinalysis. A final disposition is ending. 1530 -the patient is doing well here in the ER. He is resting comfortably in the examination room watching football on TV. His laboratory studies are unremarkable. His chest x-ray shows no acute cardiopulmonary issues. His urinalysis shows no infection. He was given food here in the ER and able to tolerate without difficulty. He remained stable here in the ER and is okay for discharge home with PCP follow-up. Problems Addressed: Homelessness unspecified: chronic illness or injury Lightheaded: acute illness or injury Amount and/or Complexity of Data Reviewed Independent Historian: EMS Labs: ordered. Decision-making details documented in ED Course. Radiology: ordered and independent interpretation performed. Decision-making details documented in ED Course. ECG/medicine tests: ordered and independent interpretation performed. Decision-making details documented in ED Course. Risk Prescription drug management. Flowsheet Documentation: Scoring Tools: No data recorded Disposition/Condition: ED Disposition ED Disposition Disch - Home Condition Stable Comment -- Discharge Medications: Patient's Medications START taking these medications No medications on file CONTINUE taking these medications which have NOT CHANGED BLOOD SUGAR DIAGNOSTIC (CHEMSTRIP BG) STRIP CIPROFLOXACIN HCL (CILOXAN) 0.3 % OPTHALMIC DROPS Place 1 Drop in right eye 4 (four) times daily. DICLOFENAC (VOLTAREN) 0.1 % OPHTHALMIC SOLUTION Place 1 Drop in right eye 4 (four) times daily. FISH OIL ORAL po bid HYDROCORTISONE 2.5 % RECTAL CREAM Insert into rectum 2 (two) times daily. LANTUS SOLOSTAR 100 UNIT/ML (3 ML) INPN MECLIZINE 25 MG TABLET Take 1 tablet by mouth 3 (three) times daily as needed for Dizziness. METFORMIN 500 MG TABLET Take 1 tablet by mouth in the morning and 1 tablet in the evening. METOPROLOL TARTRATE (LOPRESSOR) 50 MG TABLET MULTIVITAMIN ORAL LIQD one daily PREDNISOLONE ACETATE (PRED-FORTE) 1 % OPHTHALMIC SUSPENSION DROPS Place 1 Drop in right eye 4 (four) times daily. START taking Modified Medications as Prescribed No medications on file STOP taking these medications No medications on file Follow-up: Electronically signed by: Emperatriz Mcfadden DO 04/19/24 1531 [facility] [id number] 12:09:45 PT D/C home. GCS15, VS stable, no ataxia noted. Given no prescriptions and D/C paperwork. Pt pushed in wheelchair by staff at time of discharge. Pt educated on syncope, hydration, diet, med usage, follow up care, s/s worsening condition. Pt verbalized understanding. He will wait in lobby for ride from nurse friend. He is departing with black bag with paperwork, bottles of medication, wallet and cane. Iva Sanchez RNMet[facility] Medical [id number] 08:05:40 Patient arrived by [facility] for syncope. Per EMS, patient states that he hasn't eaten in a week. BGL 108. Patient states that he has has been dizzy spells and woke up on the floor this morning. Patient states that the dizziness has been ongoing for years. 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 Reports intermittent episodes of dizziness for years. Reports when he sleeps sometimes he wakes up the next day. Last night went to bed and woke up on the floor this am. No palpitations or chest pain. +decreased urination and diarrhea recently. Thinks he is dehydrated dt moving Past Medical History/Immunizations: Past Medical History: Diagnosis Date Calculus of kidney h/o multiple kidney stones - last 2005 Diverticulosis of colon with hemorrhage Injury, other and unspecified 1986 finger laceration Other and unspecified hyperlipidemia Other closed fracture of tarsal and metatarsal bones childhood Overweight and obesity Personal history of tobacco use, presenting hazards to health Type II or unspecified type diabetes mellitus without mention of complication, not stated as uncontrolled Unspecified essential hypertension Tetanus received in last 5 years: Unknown Allergies: No Known Allergies Past Social History: Tobacco Use Every Day; 1.5 packs/day; Smoked an average of 1.5 packs/day for 20.0 years; Types: Cigarettes Comments: has quit off/on for up to 7 years Alcohol Use Yes. Comments: 0-2 drinks/month Drug Use No. Sexual Activity Sexually active; Partners: Female. Past Surgical History: Past Surgical History: Procedure Laterality Date COLECTOMY 1992, Diverticulitis OTHER childhood broken foot surgery OTHER 1995 colon removal REMV KID STONE,XTRA SURG OPERATN 2006 Review of Systems: Review of Systems Constitutional: Positive for activity change. Negative for chills and fever. Respiratory: Negative for cough and shortness of breath. Cardiovascular: Negative for chest pain, palpitations and leg swelling. Gastrointestinal: Positive for diarrhea. Negative for abdominal pain, nausea and vomiting. Genitourinary: Positive for decreased urine volume. Negative for dysuria and urgency. Musculoskeletal: Positive for gait problem. Negative for arthralgias, back pain and joint swelling. Neurological: Positive for syncope. Negative for weakness, numbness and headaches. All other systems reviewed and are negative. Physical Exam: ED Triage Vitals [12/05/23 0807] Weight 84.4 kg (186 lb) Actual or estimated Height 1.778 m (5' 10") BP (!) 165/81 Pulse 77 Resp 22 Temp 36 ?C (96.8 ?F) Temp source Oral SpO2 97 % Measured on Room air Physical Exam Vitals and nursing note reviewed. Constitutional: General: He is not in acute distress. Appearance: He is well-developed. He is not ill-appearing or toxic-appearing. HENT: Head: Normocephalic and atraumatic. Right Ear: External ear normal. Left Ear: External ear normal. Mouth/Throat: Mouth: Mucous membranes are moist. Eyes: General: No scleral icterus. Neck: Vascular: No JVD. Cardiovascular: Rate and Rhythm: Normal rate and regular rhythm. Pulses: Normal pulses. Pulmonary: Effort: Pulmonary effort is normal. No respiratory distress. Abdominal: General: There is no distension. Palpations: Abdomen is soft. Tenderness: There is no abdominal tenderness. There is no guarding. Musculoskeletal: General: No tenderness or deformity. Normal range of motion. Cervical back: Normal range of motion and neck supple. Skin: General: Skin is warm and dry. Capillary Refill: Capillary refill takes less than 2 seconds. Findings: No rash. Neurological: General: No focal deficit present. Mental Status: He is alert. Mental status is at baseline. Psychiatric: Mood and Affect: Mood normal. Behavior: Behavior normal. Thought Content: Thought content normal. Radiology: CT HEAD WO CONTRAST Final Result EXAM: CT HEAD WO CONTRAST, CT CERVICAL SPINE WO CONTRAST HISTORY: Dizziness for years, woke up on floor TECHNIQUE: Axial CT of the head and cervical spine was performed and reconstructed at 5 mm intervals. Coronal and sagittal reformatted images were generated. COMPARISON: CT head 01/15/2023 FINDINGS: HEAD: Enlargement of the ventricles and sulci is suggestive of mild cerebral volume loss. No midline shift or pathological extra-axial fluid collection is present. The basal cisterns are unremarkable. No acute intracranial hemorrhage or significant mass effect is visualized. Periventricular hypodensities are nonspecific but likely represent sequelae of microvascular ischemic disease. The alfaro-white matter differentiation is preserved. The mastoid air cells and visualized paranasal air sinuses are clear. The calvarium and central skull base are unremarkable. CERVICAL SPINE: No acute fracture or dislocation. Multilevel degenerative changes throughout the cervical spine with stepwise grade 1 anterolisthesis of C3 on C4 and C4 on C5 with slight reversal of normal cervical lordosis centered about C5. Disc height loss noted most predominantly at C5/C6 and C6/C7. The craniocervical junction is intact. Prevertebral soft tissues are within normal limits. Extensive calcifications noted at the right greater than left carotid bulbs. The visualized lung apices and thyroid gland are unremarkable. IMPRESSION No acute intracranial abnormality. Degenerative changes of the cervical spine with no acute osseous abnormality. Atherosclerotic changes of the right greater than left carotid bulbs. Preliminary Report Dictated by Resident: Angus Aparicio I, Compa Cook MD., have reviewed this study and agree with the above report. CT CERVICAL SPINE WO CONTRAST Final Result EXAM: CT HEAD WO CONTRAST, CT CERVICAL SPINE WO CONTRAST HISTORY: Dizziness for years, woke up on floor TECHNIQUE: Axial CT of the head and cervical spine was performed and reconstructed at 5 mm intervals. Coronal and sagittal reformatted images were generated. COMPARISON: CT head 01/15/2023 FINDINGS: HEAD: Enlargement of the ventricles and sulci is suggestive of mild cerebral volume loss. No midline shift or pathological extra-axial fluid collection is present. The basal cisterns are unremarkable. No acute intracranial hemorrhage or significant mass effect is visualized. Periventricular hypodensities are nonspecific but likely represent sequelae of microvascular ischemic disease. The alfaro-white matter differentiation is preserved. The mastoid air cells and visualized paranasal air sinuses are clear. The calvarium and central skull base are unremarkable. CERVICAL SPINE: No acute fracture or dislocation. Multilevel degenerative changes throughout the cervical spine with stepwise grade 1 anterolisthesis of C3 on C4 and C4 on C5 with slight reversal of normal cervical lordosis centered about C5. Disc height loss noted most predominantly at C5/C6 and C6/C7. The craniocervical junction is intact. Prevertebral soft tissues are within normal limits. Extensive calcifications noted at the right greater than left carotid bulbs. The visualized lung apices and thyroid gland are unremarkable. IMPRESSION No acute intracranial abnormality. Degenerative changes of the cervical spine with no acute osseous abnormality. Atherosclerotic changes of the right greater than left carotid bulbs. Preliminary Report Dictated by Resident: Angus Aparicio I, Compa Cook MD., have reviewed this study and agree with the above report. XR CHEST 1 VW Final Result HISTORY: Syncope. TECHNIQUE: Portable AP view of the chest is obtained. No prior chest study available for comparison. FINDINGS: Elevated left hemidiaphragm noted with minimal chronic changes of fibrosis in the left lung base. Atherosclerosis with calcification in the aortic arch noted. No acute pneumonia. No pneumothorax or pleural effusion or pulmonary congestion detected. Cardiac size is within normal limits. CONCLUSIONS: No signs of acute cardiopulmonary disease. Lab Results: Lab Results COMP. METABOLIC PANEL (90926) - Abnormal Result Value Ref Range NA 134 (*) 135 - 145 mmol/L K 5.4 (*) 3.5 - 5.0 mmol/L CL 106 98 - 108 mmol/L CO2 TOTAL 19 (*) 23 - 31 mmol/L AGAP 9 2 - 16 BUN 42 (*) 7 - 23 mg/dL GLUCOSE 106 70 - 110 mg/dL CREATININE 2.36 (*) 0.60 - 1.25 mg/dL TOTAL BILI 0.7 0.1 - 1.1 mg/dL CALCIUM 8.9 8.6 - 10.6 mg/dL T PROTEIN 6.9 6.3 - 8.2 g/dL ALBUMIN 4.2 3.5 - 5.0 g/dL ALK PHOS 81 34 - 122 U/L ALTv 24 5 - 50 U/L AST(SGOT) 27 13 - 40 U/L eGFR 27.7 mL/min/1.73m2 N-TERMINAL PRO-BNP - Abnormal NT-proBNP 726 <=125 pg/mL URINALYSIS - Abnormal APPEARANCE Clear Clear COLOR Yellow Yellow PH 5.0 4.8 - 8.0 SP GRAVITY 1.012 1.003 - 1.030 GLU U QUAL Normal Normal BLOOD Negative Negative KETONES 5 mg/dL (*) Negative PROTEIN 100 mg/dL (*) Negative UROBILIN Normal Normal BILIRUBIN Negative Negative NITRITE Negative Negative LEUK ANSELMO Negative Negative RBC/HPF 0 0 - 3 HPF WBC/HPF <1 0 - 5 HPF BACTERIA Negative Negative TROPONIN I - Normal TROPONIN I 0.010 <=0.034 ng/mL POCT GLUCOSE (AUTOMATED) - Normal POCT GLU 89 70 - 110 mg/dL CBC WITH DIFF WBC 6.92 4.20 - 10.70 10*3/?L RBC 4.55 4.26 - 5.52 10*6/?L HGB 13.3 12.2 - 16.4 g/dL HCT 41.4 38.4 - 49.3 % MCV 91.0 81.7 - 95.6 fL MCH 29.2 26.1 - 32.7 pg MCHC 32.1 31.2 - 35.0 g/dL RDW-SD 47.1 38.5 - 51.6 fL RDW-CV 14.3 12.1 - 15.4 % PLT 174 150 - 328 10*3/?L MPV 11.7 9.8 - 13.0 fL NRBC/100 WBC 0.0 0.0 - 10.0 /100 WBCs NRBC x103<0.01 10*3/?L GRAN MAT (NEUT) % 61.5 % IMM GRAN % 0.40 % LYMPH % 28.6 % MONO % 7.9 % EOS % 0.9 % BASO % 0.7 % GRAN MAT x103(ANC) 4.25 1.99 - 6.95 10*3/uL IMM GRAN x1030.03 0.00 - 0.06 10*3/uL LYMPH x1031.98 1.09 - 3.23 10*3/uL MONO x1030.55 0.36 - 1.02 10*3/uL EOS x1030.06 0.06 - 0.53 10*3/uL BASO x1030.05 0.01 - 0.09 10*3/uL EKG: If EKG completed, see Procedure Note. Orders and Treatments: Orders Placed This Encounter Procedures XR CHEST [address] HEAD WO CONTRAST CT CERVICAL SPINE WO CONTRAST Cbc with Diff Comp. Metabolic Panel (89417) Troponin I N-Terminal Pro-Bnp Urinalysis POCT GLUCOSE (AUTOMATED) No orders of the defined types were placed in this encounter. First Provider Eval: ED Events Date/Time Event User Comments 12/05/23 0810 Medical Screening Begins TERESO MONREAL MD -- 12/05/23 0810 First Provider Evaluation TERESO MONREAL MD -- ED COURSE Diagnosis/Impression as of 12/05/23 1135 Syncope, unspecified syncope type Procedures: EKG-12 Lead ROUTINE ONCE Date/Time: 12/05/2023 11:35 AM Performed by: Tereso Monreal MD Authorized by: Tereso Monreal MD ECG interpreted by ED Physician in the absence of a financial aid officer: yes Previous ECG: Previous ECG: Unavailable Interpretation: Interpretation: abnormal Rate: ECG rate: 70 ECG rate assessment: normal Rhythm: Rhythm: sinus rhythm Ectopy: Ectopy: PAC QRS: QRS axis: Left QRS intervals: Normal QRS conduction: normal ST segments: ST segments: Normal T waves: T waves: normal Q waves: Abnormal Q-waves: not present Other findings: Other findings: LVH Comments: Qtc 473 MDM: Medical Decision Making No sign of acute traumatic injury, seems to be acute on chronic issue for patient. Check cxr for pneumonia or pneumothorax, check CT head for Intra-Cranial Hemorrhage or stroke, CT c spine for acute fracture although doubtful, basic labs and cardiac workup and ua for infection. Labs with CKD, minimally changed compared to prior. Ua not infected. CT head unremarkable, C spine no acute issue. Low risk (score 0) by cook islander syncope risk score. Stavle for discharge with outpatient follow up Problems Addressed: Syncope, unspecified syncope type: chronic illness or injury Amount and/or Complexity of Data Reviewed Independent Historian: EMS Labs: ordered. Decision-making details documented in ED Course. Radiology: ordered. Decision-making details documented in ED Course. Flowsheet Documentation: Scoring Tools: No data recorded Disposition/Condition: ED Disposition ED Disposition Disch - Home Condition Stable Comment -- Discharge Medications: Patient's Medications START taking these medications No medications on file CONTINUE taking these medications which have NOT CHANGED BLOOD SUGAR DIAGNOSTIC (CHEMSTRIP BG) STRIP CIPROFLOXACIN HCL (CILOXAN) 0.3 % OPTHALMIC DROPS Place 1 Drop in right eye 4 (four) times daily. DICLOFENAC (VOLTAREN) 0.1 % OPHTHALMIC SOLUTION Place 1 Drop in right eye 4 (four) times daily. FISH OIL ORAL po bid HYDROCORTISONE 2.5 % RECTAL CREAM Insert into rectum 2 (two) times daily. LANTUS SOLOSTAR 100 UNIT/ML (3 ML) INPN MECLIZINE 25 MG TABLET Take 1 tablet by mouth 3 (three) times daily as needed for Dizziness. METFORMIN 500 MG TABLET Take 1 tablet by mouth in the morning and 1 tablet in the evening. METOPROLOL TARTRATE (LOPRESSOR) 50 MG TABLET MULTIVITAMIN ORAL LIQD one daily PREDNISOLONE ACETATE (PRED-FORTE) 1 % OPHTHALMIC SUSPENSION DROPS Place 1 Drop in right eye 4 (four) times daily. START taking Modified Medications as Prescribed No medications on file STOP taking these medications No medications on file Follow-up: Electronically signed by: Tereso Monreal MD 12/05/23 1136 [facility]
[2024-10-06] MEDS ORDERED: NA CHLORIDE 0.9% 1,000 ML ONE (14:13)
[2024-10-06] MEDS ORDERED: FAMOTIDINE 20 MG/2 ML VIAL IV ONE (14:13)
--- NOTE | 2024-10-06 14:23 | RAD REPORT ---
EXAMINATION: CT HEAD WITHOUT CONTRAST CT CERVICAL SPINE WITHOUT CONTRAST CLINICAL INDICATION: Head and neck injury status post fall. Head and neck pain TECHNIQUE: Axial CT images from the skull base to the vertex without intravenous contrast. Axial CT i mages through the cervical spine were obtained without intravenous contrast. Sagittal and coronal reformatted images were created from the data set. Coronal and sagittal reformatted images were creat ed from the data set. One or more of the following dose reduction techniques were used: Automated exposure control, adjustment of the mA and/or kV according to patient size, and/or iterative reconstr uction. Unless otherwise specified, incidental findings do not require dedicated imaging follow-up. [id number]. Comparison: none FINDINGS: Right scalp hematoma. An intracranial bleed is not seen. Ventricles are normal in caliber. No significant hypodensity within the brain No extra-axial fluid collection. No fluid within the sinuses/mastoids No fracture or dislocation is seen involving the cervical spine. Mild chronic anterior subluxation C3 on C4 and C4 on C5.. Spondylosis cervical spine IMPRESSION: No acute intracranial abnormality noted A cervical fracture is not seen. If the patient continues to have symptoms to suggest acute [employer]/spinal pathology then MRI would be rec ommended
--- NOTE | 2024-10-06 14:29 | RAD REPORT ---
EXAM: CT CHEST, ABDOMEN AND PELVIS WITHOUT CONTRAST CLINICAL INDICATION: Chest and abdominal pain status post fall TECHNIQUE: CT chest, abdomen and pelvis was performed, without IV contrast, as per department protoco l. Axial, sagittal and coronal reconstructions were obtained. One or more of the following dose reduction techniques were used: Automated exposure control, adjustment of the mA and/or kV according to the patient size, and/or iterative reconstruction. Unless otherwise specified, incidental findings do not require dedicated imaging follow-up. The lack of IV and oral contrast limits evaluation of the mediastinum, lee ann, vessels, organs and jennifer l. COMPARISON: CT abdomen [address] chest 2012 FINDINGS: No pulmonary contusion. Left lower lobe consolidation. No mediastinal hematoma. No pleural effusion. No pericardial effusion. Liver, spleen, pancreas, adrenals kidneys and bladder do not demonstrate a traumatic injury. There is no evidence of diverticulitis IMPRESSION: No acute traumatic injury seen. Left lower lobe consolidation could represent atelectasis or pneumonia
[2024-10-06 14:59] LABS: Absolute Basophils 0.1 K/uL (0-0.5); Absolute Lymphocytes (CBC) 0.6 K/uL (0.7-4.9); Absolute Monocytes 0.8 K/uL (0.1-1.3); Absolute Neutrophil 10.1 K/uL (1.8-8.0); Basophils % 0.8 % (0-1.3); Eosinophils % 0.1 % (0-4.4); Hematocrit 31.4 % (39.6-49.0); Hemoglobin 10.5 g/dL (13.6-17.9); Lymphocytes % 5.5 % (15.3-44.8); MCH 28.3 pg (27.0-35.0); MCHC 33.5 g/dL (32.0-36.0); MCV 84.4 fL (80-100); MPV 8.7 fL (7.6-11.3); Monocytes % 6.8 % (3.3-12.3); Neutrophils % 86.8 % (41.7-73.7); Nucleated Red Blood Cells % 0.1 % (0-0); Platelets 250 thou/uL (152-406); RBC Red Blood Cell Count 3.72 M/uL (4.33-5.43); Red Cell Distribution Width 14.9 % (12.1-15.2)
[2024-10-06 15:04] LABS: PT Prothrombin Time 13.5 SECONDS (10-13.0); Protime INR 1.19
--- NOTE | 2024-10-06 15:08 | RAD REPORT ---
Procedure: Chest Single View HISTORY: Cough COMPARISON: May 2024 FINDINGS: Left lower lobe opacity without significant change. The right lung appears clear of acute infiltrate. No significant pleural effusion noted. The heart is normal size. IMPRESSION: Left lower lobe opacity without significant change probably atelectasis
--- NOTE | 2024-10-06 15:08 | RAD REPORT ---
Exam:Pelvis CLINICAL HISTORY: Pelvic pain FINDINGS: No fracture or dislocation seen
--- NOTE | 2024-10-06 15:09 | RAD REPORT ---
Exam:Hip Right 2 View HISTORY: Right hip pain FINDINGS: No fracture or dislocation seen. If the patient continues to have symptoms to suggest an occult fracture then MRI would be recommended
[2024-10-06 15:13] LABS: Albumin 2.5 g/dL (3.4-5.0); Albumin/Globulin Ratio 0.6 (1.1-1.8); Anion Gap 11.4 mEq/L (5.0-15.0); Bilirubin Direct 0.2 mg/dL (0-0.2); Bilirubin Indirect, Calculated 0.3 mg/dL (0.2-0.8); Bilirubin Total 0.5 mg/dL (0.2-1.0); Potassium 5.4 mEq/L (3.5-5.1); Protein, Total 6.5 g/dL (6.4-8.2); Troponin High Sensitivity 16.5 pg/mL (<58.9)
[2024-10-06 16:29] LABS: Blood Morphology Comment NOT SEEN (NOT SEEN); Platelet Estimate ADEQ; White Blood Cell Scan OK (OK)
[2024-10-06 16:35] LABS: Specific Gravity 1.011 (1.005-1.030); Sqamous Epithelial <5 /HPF (None Seen); Urine Bacteria None Seen /HPF (<20); Urine Bilirubin NEGATIVE (Negative); Urine Blood 1+ (Negative); Urine Clarity Turbid (Clear); Urine Color Light-Yellow (Yellow); Urine Crystals Unidentified Few /HPF (None Seen); Urine Culture Reflex Order NOT NEEDED; Urine Glucose TRACE (Negative); Urine Ketones NEGATIVE (Negative); Urine Microscopic Reflex YN ORDER UMIC; Urine Nitrite NEGATIVE (Negative); Urine Protein 2+ (Negative); Urine RBC <5 /HPF (None Seen); Urine Urobilinogen Normal (Normal); Urine WBC <5 /HPF (<5); Urine WBC Clump Rare /HPF (None Seen); Urine Yeast (Budding) Trace /HPF (None Seen)
--- NOTE | 2024-10-06 17:00 | EDPHYS ---
Physician Documentation [facility] Name: Arun Mccall Age: 79 yrs Sex: Male : 1945 Arrival Date: 10/06/2024 Time: 13:32 Bed 17 Private MD: ED Physician Lei Marin HPI: 10/06 16:49 This 79 yrs old Male presents to ER via EMS with complaints of Altered Mental tom Status, Fall Injury. 16:49 The patient presents with confusion, decreased mental status. Onset: The tom symptoms/episode began/occurred 2 day(s) ago. Possible causes: CVA or TIA, alcohol, low blood sugar, seizure, sepsis, unknown. Associated signs and symptoms: The patient has no apparent associated signs or symptoms. Current symptoms: In the emergency department the patient's symptoms have improved, mildly. Patient's baseline: Neuro: alert and fully oriented. The patient has experienced similar episodes in the past, several times. Historical: - Allergies: 13:56 fenofibrate nanocrystallized; ss 13:56 insulin degludec; ss - PMHx: 13:56 Anxiety; Diabetes - IDDM; Diverticulitis; HLD; Hypertension; ss - PSHx: 13:56 colon sx; ss - Immunization history:: Adult Immunizations up to date. - Social history:: Smoking status: Patient reports the use of cigarette tobacco products, denies chronic smoking, but will smoke occasionally. - Family history:: not pertinent. ROS: 16:49 Constitutional: Negative for fever, chills, and weight loss, Eyes: Negative for injury, tom pain, redness, and discharge, ENT: Negative for injury, pain, and discharge, Neck: Negative for injury, pain, and swelling, Cardiovascular: Negative for chest pain, palpitations, and edema, Respiratory: Negative for shortness of breath, cough, wheezing, and pleuritic chest pain, Abdomen/GI: Negative for abdominal pain, nausea, vomiting, diarrhea, and constipation, Back: Negative for injury and pain, : Negative for injury, bleeding, discharge, and swelling, Psych: Negative for depression, anxiety, suicide ideation, homicidal ideation, and hallucinations, Allergy/Immunology: Negative for hives, rash, and allergies, Endocrine: Negative for neck swelling, polydipsia, polyuria, polyphagia, and marked weight changes, Hematologic/Lymphatic: Negative for swollen nodes, abnormal bleeding, and unusual bruising, 16:49 MS/extremity: Positive for injury or acute deformity, pain, of the pelvis, 16:49 Skin: Positive for abrasion(s), of the right arm and left arm, 16:49 Neuro: Positive for altered mental status, dizziness, headache, near syncope, weakness, Exam: 16:49 Constitutional: This is a well developed, well nourished patient who is awake, alert, tom and in no acute distress. Head/Face: Normocephalic, atraumatic. Eyes: Pupils equal round and reactive to light, extra-ocular motions intact. Lids and lashes normal. Conjunctiva and sclera are non-icteric and not injected. Cornea within normal limits. Periorbital areas with no swelling, redness, or edema. ENT: Nares patent. No nasal discharge, no septal abnormalities noted. Tympanic membranes are normal and external auditory canals are clear. Oropharynx with no redness, swelling, or masses, exudates, or evidence of obstruction, uvula midline. Mucous membranes moist. Neck: Trachea midline, no thyromegaly or masses palpated, and no cervical lymphadenopathy. Supple, full range of motion without nuchal rigidity, or vertebral point tenderness. No Meningismus. Chest/axilla: Normal chest wall appearance and motion. Nontender with no deformity. No lesions are appreciated. Cardiovascular: Regular rate and rhythm with a normal S1 and S2. No gallops, murmurs, or rubs. Normal PMI, no JVD. No pulse deficits. Respiratory: Lungs have equal breath sounds bilaterally, clear to auscultation and percussion. No rales, rhonchi or wheezes noted. No increased work of breathing, no retractions or nasal flaring. Abdomen/GI: Soft, non-tender, with normal bowel sounds. No distension or tympany. No guarding or rebound. No evidence of tenderness throughout. Back: No spinal tenderness. No costovertebral tenderness. Full range of motion. Male : Normal genitalia with no discharge or lesions. Psych: Awake, alert, with orientation to person, place and time. Behavior, mood, and affect are within normal limits. 16:49 Skin: injury, abrasion(s), very small abrasion noted, 16:49 Neuro: Orientation: is normal, appropriate for stated age, no acute changes, Mentation: is normal, appropriate for stated age, no acute changes, Memory: is normal, appropriate for stated age, no acute changes, Cranial nerves: grossly normal, is grossly normal based on the patient's age, no acute changes, Cerebellar function: is grossly normal, is grossly normal based on the patient's age, no acute changes, Motor: moves all fours, strength is 5/5 in all extremities, Sensation: is normal, Gait: not tested. Babinski testing is normal, seizure activity, is not displayed by the patient, 16:55 ECG was reviewed by the Attending Physician. tom Vital Signs: 13:35 BP 159 / 58; Pulse 73; Resp 20; Temp 97.8(O); Pulse Ox 97% on R/A; Height 5 ft. 10 in. ;ss 16:00 BP 164 / 65; Pulse 75; Resp 18 S; Pulse Ox 97% on R/A; aa5 18:00 BP 152 / 69; Pulse 86; Resp 16 S; Pulse Ox 95% on R/A; aa5 19:00 BP 151 / 60; Pulse 95; Resp 20 S; Temp 97.8(TE); Pulse Ox 95% on R/A; aa5 MDM: 13:37 Medical Screening Exam initiated tom 16:53 Differential Diagnosis: CVA, electrolyte abnormality, alcohol intoxication, tom hypoglycemia, intracranial bleed, pneumonia, seizure, sepsis, TIA, UTI, volume depletion. Data reviewed: vital signs, nurses notes, EMS record, skilled nursing records, lab test result(s), EKG, radiologic studies, CT scan, plain films. Consideration of Admission/Observation Patient was admitted/placed on observation. Escalation of care including admission/observation considered. I considered the following discharge prescriptions or medication management in the emergency department Medications were administered in the Emergency Department. See MAR. Independent interpretation of the following test(s) in the Emergency Department EKG: See my EKG interpretation above. Test considered but Not performed: MRI: NO MRI BRAIN. Care significantly affected by the following chronic conditions: Diabetes, Hypertension, ANXIETY, HLD, DIVERTICULITIS. Counseling: I had a detailed discussion with the patient and/or guardian regarding the historical points, exam findings, and any diagnostic results supporting the discharge/admit diagnosis, lab results, radiology results, the need for further work-up and treatment in the hospital. 10/06 13:40 Order name: Basic Metabolic Panel; Complete Time: 16:27 [facility] 10/06 13:40 Order name: CBC with Diff; Complete Time: 16:31 [facility] 10/06 13:40 Order name: LFT's; Complete Time: 16:27 [facility] 10/06 13:40 Order name: Magnesium; Complete Time: 16:27 [facility] 10/06 13:40 Order name: NT PRO-BNP; Complete Time: 16:27 [facility] 10/06 13:40 Order name: PT-INR; Complete Time: 16:27 [facility] 10/06 13:40 Order name: Troponin HS; Complete Time: 16:27 [facility] 10/06 13:40 Order name: Lipase; Complete Time: 16:27 [facility] 10/06 13:40 Order name: Urinalysis w/ reflexes; Complete Time: 17:30 [facility] 10/06 13:40 Order name: Urine Culture tom 10/06 14:58 Order name: Blood Culture Adult (2) [facility] 10/06 14:58 Order name: Lactate w/ 2H reflex if indic.; Complete Time: 17:30 [facility] 10/06 16:29 Order name: CBC Smear Scan; Complete Time: 16:31 [facility] 10/06 16:31 Order name: Osmolality, Serum [facility] 10/06 16:31 Order name: Urine Sodium Random [facility] 10/06 16:31 Order name: Urine Osmolality [facility] 10/06 13:40 Order name: XRAY Chest (1 view); Complete Time: 16:27 [facility] 10/06 13:40 Order name: Pelvis XRAY; Complete Time: 16:27 [facility] 10/06 13:40 Order name: Hip Right 2 View XRAY; Complete Time: 16:27 [facility] 10/06 13:57 Order name: Head C Spine Mpr Wo Con; Complete Time: 14:57 EDMS 10/06 13:58 Order name: Chest Abd Pelvis Wo Con; Complete Time: 14:57 EDMS 10/06 21:04 Order name: CT Head Brain w/wo Con kd3 10/06 21:04 Order name: XRAY Hip LEFT 2 view 3 10/06 21:36 Order name: CT EDMS 10/06 13:40 Order name: EKG; Complete Time: 13:41 [facility] 10/06 13:40 Order name: Cardiac monitoring; Complete Time: 14:30 [facility] 10/06 13:40 Order name: EKG - Nurse/Tech; Complete Time: 15:27 [facility] 10/06 13:40 Order name: IV Saline Lock; Complete Time: 15: [facility] 10/06 13:40 Order name: Labs collected and sent; Complete Time: 15: [facility] 10/06 13:40 Order name: O2 Per Protocol; Complete Time: 14:30 [facility] 10/06 13:40 Order name: O2 Sat Monitoring; Complete Time: 14:30 [facility] EC:55 Rate is 77 beats/min. Rhythm is regular. QRS [place] is Normal. NH interval is normal. QRS tom interval is normal. QT interval is normal. No Q waves. T waves are Normal. No ST changes noted. Clinical impression: NSR w/ Non-specific ST/T Changes and No evidence of ischemia. Interpreted by me. Reviewed by me. Administered Medications: 14:58 Drug: Famotidine IVP 20 mg IVP once; dilute with 10 mL 0.9% NaCl; give over 2 minutes aa5 Route: IVP; Site: left forearm; 15:10 Follow up: Response: No adverse reaction aa5 14:59 Drug: NS 0.9% IV 500 ml 500 ml IV at 100 ml/hr once; to be given as a bolus over 30 aa5 minutes Volume: 500 ml; Route: IV; Rate: 100 ml/hr; Site: left forearm; 15:29 Follow up: IV Status: Completed infusion; IV Intake: 500ml aa5 15:28 Drug: NS 0.9% IV 500 ml 500 ml IV at 1 bolus once; to be given as a bolus over 30 aa5 minutes Volume: 500 ml; Route: IV; Rate: 1 bolus; Site: left forearm; 18:30 Drug: Rocephin IV 1 grams IV at per protocol once; Given slow IV push per pharmacy aa5 instructions Route: IV; Rate: per protocol; Site: left forearm; 18:35 Follow up: Response: No adverse reaction aa5 18:30 Drug: Kayexalate PO 45 grams PO once Route: PO; aa5 19:00 Follow up: Response: No adverse reaction aa5 Disposition Summary: 10/06/24 16:59 Hospitalization Ordered Notes: Hospitalization Status: Inpatient Admission tom Provider: Lei Marin cha [facility] tom Condition: Fair tom Problem: new tom Symptoms: have improved tom Bed/Room Type: Standard tom Room Assignment: 203(10/06/24 18:06) bd Diagnosis - Weakness tom - Fall on same level, unspecified tom - Abrasion of left upper arm tom - Abrasion of right upper arm tom - Hypo-osmolality and hyponatremia tom - Hyperkalemia tom - Unspecified kidney failure - CHRONIC tom Forms: - Medication Reconciliation Form tom - SBAR form tom - Leadership Thank You Letter tom Signatures: Dispatcher [employer] EDMS Christy Carrion Corey, MD MD cha Calderon, Audri, RN RN aa5 Joan Damico RN RN ss Christian Givens PA PA [id number] Corrections: (The following items were deleted from the chart) 13:41 13:41 Pelvis+RAD.RAD.BRZ ordered. EDMS EDMS 13:41 13:41 Hip Right 2 View+RAD.RAD.BRZ ordered. EDMS EDMS 13:56 13:56 PMHx: hemroids; ss ss 13:57 13:41 Head C Spine Cap Wo Con+CT.RAD.BRZ ordered. EDMS EDMS 18:06 16:59 tom bd 21:05 21:05 Hip Right 2 View+RAD.RAD.BRZ ordered. EDMS EDMS
--- NOTE | 2024-10-06 17:00 | ER ---
Nurse's Notes [facility] Name: Arun Mccall Age: 79 yrs Sex: Male : 1945 Arrival Date: 10/06/2024 Time: 13:32 Bed 17 Private MD: Diagnosis: Weakness;Fall on same level, unspecified;Abrasion of left upper arm;Abrasion of right upper arm;Hypo-osmolality and hyponatremia;Hyperkalemia;Unspecified kidney failure-CHRONIC Presentation: 10/06 13:35 Chief complaint: EMS states: Called out for AMS, frequent falls. Pt is A\T\O x 3. Pt ss denies LOC. Multiple small skin tears and bruises noted to bilateral arms. Coronavirus screen: Client denies travel out of the [place] in the last 14 days. Ebola Screen: Patient denies exposure to infectious person. Patient denies travel to an Ebola-affected area in the 21 days before illness onset. Initial Sepsis Screen: Does the patient meet any 2 criteria? No. Patient's initial sepsis screen is negative. Does the patient have a suspected source of infection? No. Patient's initial sepsis screen is negative. Risk Assessment: Do you want to hurt yourself or someone else? Patient reports no desire to harm self or others. Onset of symptoms is unknown. 13:35 Method Of Arrival: EMS: [place] ss 13:35 Acuity: CH[place] 3 ss 13:35 Transition of care: patient was received from another setting of care (long-term care facility), [facility]. Historical: - Allergies: 13:56 fenofibrate nanocrystallized; ss 13:56 insulin degludec; ss - PMHx: 13:56 Anxiety; Diabetes - IDDM; Diverticulitis; HLD; Hypertension; ss - PSHx: 13:56 colon sx; ss - Immunization history:: Adult Immunizations up to date. - Social history:: Smoking status: Patient reports the use of cigarette tobacco products, denies chronic smoking, but will smoke occasionally. - Family history:: not pertinent. Assessment: 13:59 Reassessment: Pt to CT at this time VIA stretcher. ss 14:15 General: Appears comfortable, Behavior is calm, cooperative. Pain: Denies pain. Neuro: aa5 Level of Consciousness is awake, obeys commands, confused, Oriented to person, place, Funeral Arrangement Director are weak bilaterally Weakness in bilateral arm(s) leg(s) Gait is unsteady, Speech is normal, Facial symmetry appears normal. Cardiovascular: Heart tones S1 S2 present Rhythm is regular. Respiratory: Airway is patent Respiratory effort is even, unlabored, Respiratory pattern is regular, symmetrical. GI: No signs and/or symptoms were reported involving the gastrointestinal system. : No signs and/or symptoms were reported regarding the genitourinary system. EENT: No signs and/or symptoms were reported regarding the EENT system. Derm: Skin is pink, warm \T\ dry. Multiple small skin tears noted to right hand and right elbow with multiple small purple bruising noted. Musculoskeletal: Range of motion: intact in all extremities. 16:10 Reassessment: Pt assisted with urine specimen collection, pt cleaned of small amount of aa5 soft brown stool, clean brief applied. . 16:10 Neuro: Level of Consciousness is awake, obeys commands, confused, Oriented to person, aa5 place. Respiratory: Airway is patent Respiratory effort is even, unlabored, Respiratory pattern is regular, symmetrical. Derm: Skin is pink, warm \T\ dry. 18:50 Reassessment: Pt cleaned of urinary incontinence. . aa5 18:50 Neuro: Level of Consciousness is awake, obeys commands, confused, Oriented to person, aa5 place. Respiratory: Airway is patent Respiratory effort is even, unlabored, Respiratory pattern is regular, symmetrical. Derm: Skin is pink, warm \T\ dry. 19:16 Reassessment: Report faxed to admitting nurse, Room 203. . aa5 Vital Signs: 13:35 BP 159 / 58; Pulse 73; Resp 20; Temp 97.8(O); Pulse Ox 97% on R/A; Height 5 ft. 10 in. ;ss 16:00 BP 164 / 65; Pulse 75; Resp 18 S; Pulse Ox 97% on R/A; aa5 18:00 BP 152 / 69; Pulse 86; Resp 16 S; Pulse Ox 95% on R/A; aa5 19:00 BP 151 / 60; Pulse 95; Resp 20 S; Temp 97.8(TE); Pulse Ox 95% on R/A; aa5 ED Course: 13:35 Patient arrived in ED. bd 13:37 Sumeet Moody MD is Attending Physician. tom 13:55 Triage completed. ss 13:56 Arm band placed on right wrist. ss 14:02 Nirali Curtis, RN is Primary Nurse. aa5 14:07 Head C Spine Mpr Wo Con In Process Unspecified. EDMS 14:07 Chest Abd Pelvis Wo Con In Process Unspecified. EDMS 14:15 Patient has correct armband on for positive identification. Placed in gown. Bed in low aa5 position. Call light in reach. Side rails up X2. Client placed on continuous cardiac and pulse oximetry monitoring. NIBP monitoring applied. gaming manager on. Pulse ox on. NIBP on. 14:45 Initial lab(s) drawn, sent to lab. Inserted saline lock: 22 gauge in left forearm, aa5 using aseptic technique. Blood collected. Flushed with 10 mL NS. 14:58 XRAY Chest (1 view) In Process Unspecified. EDMS 14:58 Pelvis XRAY In Process Unspecified. EDMS 14:58 Hip Right 2 View XRAY In Process Unspecified. EDMS 16:18 First set of blood cultures drawn by me. aa5 16:30 Second set of blood cultures drawn by me. aa5 16:40 Inserted saline lock: 22 gauge in right forearm, using aseptic technique. Flushed with aa5 10 mL NS. 16:56 Lei Marin MD is Hospitalizing Provider. [facility] 20:50 Attending Physician role handed off by Sumeet Moody MD kd3 21:43 Lei Marin MD is Attending Physician. kd3 Administered Medications: 14:58 Drug: Famotidine IVP 20 mg IVP once; dilute with 10 mL 0.9% NaCl; give over 2 minutes aa5 Route: IVP; Site: left forearm; 15:10 Follow up: Response: No adverse reaction aa5 14:59 Drug: NS 0.9% IV 500 ml 500 ml IV at 100 ml/hr once; to be given as a bolus over 30 aa5 minutes Volume: 500 ml; Route: IV; Rate: 100 ml/hr; Site: left forearm; 15:29 Follow up: IV Status: Completed infusion; IV Intake: 500ml aa5 15:28 Drug: NS 0.9% IV 500 ml 500 ml IV at 1 bolus once; to be given as a bolus over 30 aa5 minutes Volume: 500 ml; Route: IV; Rate: 1 bolus; Site: left forearm; 18:30 Drug: Rocephin IV 1 grams IV at per protocol once; Given slow IV push per pharmacy aa5 instructions Route: IV; Rate: per protocol; Site: left forearm; 18:35 Follow up: Response: No adverse reaction aa5 18:30 Drug: Kayexalate PO 45 grams PO once Route: PO; aa5 19:00 Follow up: Response: No adverse reaction aa5 Intake: 15:29 IV: 500ml; Total: 500ml. aa5 Outcome: 16:59 Decision to Hospitalize by Provider. tom 20:15 Patient left the ED. kd3 21:43 Patient left the ED. kd3 Signatures: Dispatcher [employer] EDMS Christy Carrion Corey, MD MD cha Calderon, Audri, RN RN aa5 Joan Damico RN RN Radha Renteria RN RN kd3 Corrections: (The following items were deleted from the chart) 13:56 13:56 PMHx: hemroids; ss ss 19:24 14:00 Patient has correct armband on for positive identification. Placed in gown. Bed aa5 in low position. Call light in reach. Side rails up X2. aa5 19:24 14:00 Client placed on continuous cardiac and pulse oximetry monitoring. NIBP aa5 monitoring applied. gaming manager on. Pulse ox on. NIBP on. aa5 19:26 14:15 Derm: Skin is pink, warm \T\ dry. aa5 aa5
--- NOTE | 2024-10-06 17:53 | P.HP ---
Certification for Inpatient Patient admitted to: Inpatient With expected LOS: >2 Midnights <Josué Givens - Last Filed: 10/06/24 17:47> Patient History Date of Service: 10/06/24 Primary Care Provider: SUNIL Reason for admission: Pneumonia, Hyponatremia, Hyperkalemia, AMS History of Present Illness: This is a 79-year-old male patient with a history of diabetes, hyperkalemia, muscle wasting, CKD, hypertension that presented to the emergency room from long term today for altered mentation, muscle weakness, frequent falls. Patient was worked up in the emergency room and was found to have a sodium of 124, potassium of 5.4, chloride of 93, bicarb of 25, BUN of 42, creatinine 2.69, glucose of 100. Creatinine improved from previous admissions. History of CKD. White cell count showed a mild elevation at 11.6 with a hemoglobin of 10.5, hematocrit of 31.4, platelet of 250. BNP of 749 and troponin of 16.5. Patient had trauma gram with no acute traumatic findings but shows possible left base pneumonia present versus atelectasis. Medicine was requested for admission at that time due to confusion, hyponatremia, hyperkalemia. Patient upon initial assessment is alert and oriented x 4 but with trouble recalling information. - Past Medical/Surgical History Diabetic: Yes -: DM II -: HTN -: CKD IV with Proteinuria (Dr. Atkinson/ [facility]) -: colon surgery - Family History Father -: Heart disease - Social History Smoking Status: Unknown if ever smoked Alcohol use: No CD- Drugs: No Caffeine use: Yes <Josué Givens - Last Filed: 10/06/24 17:47> Date of Service: 10/06/24 <Lei Marin - Last Filed: 10/07/24 06:14> Allergies fenofibrate nanocrystallized [From Tricor] Allergy (Mild, Verified 11/29/22 20:51) Unknown insulin degludec [From Tresiba FlexTouch U-100] Adverse Reaction (Intermediate, Verified 11/29/22 20:51) Anaphylaxis Home Medications: Amlodipine [Norvasc*] 5 mg PO DAILY #30 tab 06/05/24 Acetaminophen [Tylenol] 650 mg PO Q4HR PRN 10/06/24 Albuterol Sulfate [Albuterol Sulfate 0.083% Neb Soln] 1 IN Q4HR PRN 10/06/24 Cetirizine HCl [All Day Allergy Relief] 10 mg PO DAILY 10/06/24 Doxycycline Hyclate 100 mg PO Q12HR 10/06/24 Duloxetine HCl [Cymbalta] 30 mg PO DAILY 10/06/24 Ipratropium/Albuterol Sulfate [Iprat-Albut 0.5-3(2.5) mg/3 ml] 3 ml IH Q6HR PRN 10/06/24 Lidocaine 4% Patch [Lidoderm 5% Patch*] TOP BEDTIME 10/06/24 Losartan Potassium 25 mg PO DAILY 10/06/24 Mag Hydrox/Aluminum Hyd/Simeth [Alum-Mag Hydroxide-Simeth Cup] 30 ml PO Q8HR PRN 10/06/24 Melatonin/Pyridoxine [Melatonin 5 mg Tablet] 10 mg PO BEDTIME 10/06/24 Sennosides [Senna] 8.6 mg PO DAILY 10/06/24 Simethicone 80 mg PO Q6HR 10/06/24 Tamsulosin [Flomax*] 0.4 mg PO BID 10/06/24 Triamcinolone 0.1% Crm [Kenalog 0.1% Cream*] BID PRN 10/06/24 Review of Systems General: Weakness, Malaise Eyes: Unremarkable ENT: Unremarkable Respiratory: Cough Cardiovascular: Unremarkable Gastrointestinal: Unremarkable Musculoskeletal: As per HPI Integumentary: Bruising Neurological: Weakness, Confusion <Josué Givens - Last Filed: 10/06/24 17:47> Physical Examination - Vital Signs Blood Pressure: 164/65 Pulse: 86 Respirations: 16 Pulse Ox (%): 93 (Room air) - Physical Exam General: Alert, In no apparent distress, Oriented x3, Cooperative HEENT: Atraumatic, Normocephalic, PERRLA, EOMI Neck: Supple Respiratory: Expiratory wheezes Cardiovascular: No edema, Normal pulses, Regular rate/rhythm, Normal S1 S2, No gallops, No rubs, No murmurs Gastrointestinal: Normal bowel sounds, Soft and benign, Non-distended, No ascites, No tenderness Musculoskeletal: No clubbing, No swelling, No contractures, No tenderness, No warmth Integumentary: Other (Multiple bruises on arms and legs, a few mild skin tears to the right elbow into the right hand noted) Neurological: Normal speech, Normal strength at 5/5 x4 extr, Normal tone, Sensation intact - Studies Laboratory Data (last 24 hrs) 10/06/24 10/06/24 10/06/24 14:45 14:45 14:45 WBC 11.60 H Hgb 10.5 L Hct 31.4 L Plt Count 250 PT 13.5 H INR 1.19 Sodium 124 L Potassium 5.4 H BUN 42 H Creatinine 2.69 H Glucose 100 Magnesium 2.0 Total Bilirubin 0.5 AST 40 H ALT 20 Alkaline Phosphatase 85 Lipase 32 <Josué Givens - Last Filed: 10/06/24 17:47> - Studies Laboratory Data (last 24 hrs) 10/06/24 10/06/24 10/06/24 14:45 14:45 14:45 WBC 11.60 H Hgb 10.5 L Hct 31.4 L Plt Count 250 PT 13.5 H INR 1.19 Sodium 124 L Potassium 5.4 H BUN 42 H Creatinine 2.69 H Glucose 100 Magnesium 2.0 Total Bilirubin 0.5 AST 40 H ALT 20 Alkaline Phosphatase 85 Lipase 32 <Lei Marin - Last Filed: 10/07/24 06:14> Assessment and Plan - Problems (Diagnosis) (1) Hyponatremia Current Visit: Yes Status: Acute (2) Hyperkalemia Current Visit: Yes Status: Acute (3) Pneumonia Current Visit: Yes Status: Acute Qualifiers: Pneumonia type: due to unspecified organism Laterality: left Lung location: lower lobe of lung Qualified Code(s): J18.9 - Pneumonia, unspecified organism (4) Altered mental state Current Visit: Yes Status: Acute Qualifiers: Altered mental status type: transient alteration of awareness Qualified Code(s): R40.4 - Transient alteration of awareness (5) Chronic kidney disease, stage III (moderate) Current Visit: Yes Status: Chronic Qualifiers: Chronic kidney disease stage 3 subtype: unspecified whether 3a or 3b Qualified Code(s): N18.30 - Chronic kidney disease, stage 3 unspecified (6) Diabetes mellitus type 2 in obese Current Visit: Yes Status: Chronic (7) Hypertension Current Visit: Yes Status: Chronic Qualifiers: Hypertension type: primary hypertension Qualified Code(s): I10 - Essential (primary) hypertension - Plan 1. Patient will be placed on telemetry and will continue to monitor vital signs and respiratory status 2. Breathing treatments as needed 3. Patient will be started on Rocephin and Zithromax as patient has a increased white cell count and possible left base infiltrate consistent with pneumonia 4. DVT prophylaxis 5. Light hydration secondary to BNP elevation but with hyponatremia and no active fluid overload 6. Nephrology consultation for CKD 3 along with hyponatremia and hyperkalemia 7. Kayexalate x 1 to be given for hyperkalemia 8. Routine CBC and chemistry recheck daily 9. Continue to monitor blood glucose levels for diabetes Discharge Plan: [facility] Plan to discharge in: 48 Hours - Advance Directives Does patient have a Living Will: No Does patient have a Durable POA for Healthcare: No - Code Status/Comfort Care Code Status Assessed: Yes Critical Care: No Time Spent Managing Pts Care (In Minutes): 45 <Josué Givens - Last Filed: 10/06/24 17:47> Date of Service: 10/06/24 Chart has been reviewed. Events of the last 24 hours have been noted. Case discussed with GAVIN. I performed a substantial part of the MDM during this patient's care today. I personally made or approved the documented management plan and acknowledge its risk of complications. I agree with the findings and documentation provided in the GAVIN's notes Continue with current plan of care for treatment of the patient's pneumonia. Will continue monitoring closely. Monitor oxygenation and await for culture results. <Lei Marin - Last Filed: 10/07/24 06:14>
[2024-10-06] MEDS ORDERED: CEFTRIAXONE 1000 MG/VIAL ONE (18:04)
[2024-10-06] MEDS ORDERED: SOD POLYSTYREN SUL 15 GM/60 ML UCUP ONE (18:05)
--- NOTE | 2024-10-06 21:35 | RAD REPORT ---
EXAM: CT brain without contrast HISTORY: Head injury status post fall COMPARISON: August 2024 TECHNIQUE: Multiple contiguous axial images were obtained and a CT of the brain without contrast.. Sagittal and coronal reconstruction performed. Automated exposure control, adjustment of the mA and/or kV according to patient size, and/or iterative reconstruction. Unless otherwise specified, incidental f indings do not require dedicated imaging follow-up FINDINGS: Right scalp hematoma. An intracranial bleed is not seen Ventricles are normal caliber No extra-axial fluid collection noted No significant hypodensity within the brain No fluid within the visualized sinuses or mastoids noted. IMPRESSION: No acute intracranial abnormality noted. If the patient continues to have symptoms to suggest an acute intracranial abnormality then MRI of th e brain would be recommended.
--- NOTE | 2024-10-06 22:10 | RAD REPORT ---
Exam:Hip Right 2 View HISTORY: Right hip pain FINDINGS: No fracture or dislocation seen. The bones are osteoporotic.
[2024-10-06] MEDS: MELATONIN 5 MG TABLET PO SCH (22:11)
[2024-10-06] MEDS ORDERED: ONDANSETRON 4 MG/2 ML VIAL IV PRN (22:11)
--- NOTE | 2024-10-06 22:12 | RAD REPORT ---
Exam:Hip Left 2 View HISTORY: Left hip pain FINDINGS: Cortical irregularity with subtle transverse lucency involves the greater trochanter left femur. This probably is not significant. However if the patient continues to have symptoms to suggest a fracture then further evaluation with CT or MRI could be obtained for further evaluation. No dislocation
[2024-10-06 23:24] VITALS: BMI 25.3
[2024-10-06] MEDS: SOD POLYSTYREN SUL 15 GM/60 ML UCUP ONE (23:53)
[2024-10-06] MEDS: NA CHLORIDE 0.9% 1,000 ML IV SCH (23:55)
[2024-10-06] MEDS: AZITHROMYCIN IV 500 MG in NA CHLORIDE 0.9% 250 ML IVPB SCH (23:56)
[2024-10-06] MEDS: SOD POLYSTYREN SUL 15 GM/60 ML UCUP PO ONE (23:57)
[2024-10-07] MEDS: IPRATROPIUM BROM 0.5MG/2.5ML NEB SCH
[2024-10-07] MEDS: ALBUTEROL 2.5 MG/3 ML NEB SOL NEB SCH (00:01)
[2024-10-07] MEDS: HEPARIN 5000 UNIT/ML 1 ML VIAL SQ SCH (00:58)
[2024-10-07 05:20] LABS: Absolute Basophils 0.1 K/uL (0-0.5); Absolute Lymphocytes (CBC) 0.8 K/uL (0.7-4.9); Absolute Monocytes 0.5 K/uL (0.1-1.3); Absolute Neutrophil 9.1 K/uL (1.8-8.0); Basophils % 0.7 % (0-1.3); Eosinophils % 0.1 % (0-4.4); Hematocrit 30.4 % (39.6-49.0); Hemoglobin 10.2 g/dL (13.6-17.9); Lymphocytes % 7.5 % (15.3-44.8); MCH 28.9 pg (27.0-35.0); MCHC 33.5 g/dL (32.0-36.0); MCV 86.2 fL (80-100); MPV 8.3 fL (7.6-11.3); Monocytes % 4.4 % (3.3-12.3); Nucleated Red Blood Cells % 0.2 % (0-0); Platelets 236 thou/uL (152-406); RBC Red Blood Cell Count 3.53 M/uL (4.33-5.43); Red Cell Distribution Width 15.2 % (12.1-15.2)
[2024-10-07 05:21] LABS: Neutrophils % 87.3 % (41.7-73.7)
[2024-10-07 05:37] LABS: Anion Gap 13.7 mEq/L (5.0-15.0); Potassium 4.7 mEq/L (3.5-5.1)
[2024-10-07] MEDS: CEFTRIAXONE 1,000 MG in NA CHLORIDE 0.9% 50 ML IVPB SCH (08:29)
--- NOTE | 2024-10-07 10:59 | EKG ---
Test Date: 2024-10-06 Test Time: 14:54:25 Waste Disposal Leakage Tester: LEXA MEASUREMENT RESULTS: Intervals: Rate: 77 SD: 194 QRSD: 134 QT: 430 QTc: 486 [place]: P: 54 SD: 194 QRS: -31 T: 36 INTERPRETIVE STATEMENTS: Normal sinus rhythm with sinus arrhythmia Left axis deviation Right bundle branch block Abnormal ECG Compared to ECG 06/01/2024 11:55:33 Left-axis deviation now present Myocardial infarct finding no longer present Electronically Signed On 10-07-24 10:56:34 CDT by Macho Lazo
--- NOTE | 2024-10-07 11:11 | P.CNS ---
Date of Consult: 10/07/24 Reason for Consult: Renal insufficiency Requesting Physician: Trista Catalan Primary Care Provider: [place] Chief Complaint: Pneumonia, Hyponatremia, Hyperkalemia, AMS History of Present Illness: Pt is an elderly male who is a [place] resident with various chronic conditions including history of diabetes with lina standing CKD, chronic malignant hypertension who presented to the emergency room from custodial today for weakness, frequent falls. He reports recent cough, some congestion, reduced intake. Mild nausea. CT w/u showed possible left base pneumonia present versus atelectasis. Allergies fenofibrate nanocrystallized [From Tricor] Allergy (Mild, Verified 11/29/22 20:51) Unknown insulin degludec [From Tresiba FlexTouch U-100] Adverse Reaction (Intermediate, Verified 11/29/22 20:51) Anaphylaxis Home Medications: Amlodipine [Norvasc*] 5 mg PO DAILY #30 tab 06/05/24 Acetaminophen [Tylenol] 650 mg PO Q4HR PRN 10/06/24 Albuterol Sulfate [Albuterol Sulfate 0.083% Neb Soln] 1 IN Q4HR PRN 10/06/24 Cetirizine HCl [All Day Allergy Relief] 10 mg PO DAILY 10/06/24 Doxycycline Hyclate 100 mg PO Q12HR 10/06/24 Duloxetine HCl [Cymbalta] 30 mg PO DAILY 10/06/24 Ipratropium/Albuterol Sulfate [Iprat-Albut 0.5-3(2.5) mg/3 ml] 3 ml IH Q6HR PRN 10/06/24 Lidocaine 4% Patch [Lidoderm 5% Patch*] TOP BEDTIME 10/06/24 Losartan Potassium 25 mg PO DAILY 10/06/24 Mag Hydrox/Aluminum Hyd/Simeth [Alum-Mag Hydroxide-Simeth Cup] 30 ml PO Q8HR PRN 10/06/24 Melatonin/Pyridoxine [Melatonin 5 mg Tablet] 10 mg PO BEDTIME 10/06/24 Sennosides [Senna] 8.6 mg PO DAILY 10/06/24 Simethicone 80 mg PO Q6HR 10/06/24 Tamsulosin [Flomax*] 0.4 mg PO BID 10/06/24 Triamcinolone 0.1% Crm [Kenalog 0.1% Cream*] BID PRN 10/06/24 - Past Medical/Surgical History Diabetic: Yes -: DM II -: HTN -: CKD IV with Proteinuria (Dr. Atkinson/ [facility]) -: colon surgery - Family History Father Medical History: Heart disease - Social History Smoking Status: Current some day smoker Alcohol use: No CD- Drugs: No Caffeine use: No Place of Residence: [facility] Review of Systems General: Weakness Eyes: Unremarkable ENT: Unremarkable Respiratory: Cough, As per HPI Cardiovascular: As per HPI Gastrointestinal: Nausea, As per HPI Genitourinary: Unremarkable Musculoskeletal: Other (Falls) Integumentary: Unremarkable Neurological: Weakness, As per HPI Physical Examination Temp Pulse Resp BP Pulse Ox 97.6 F 68 14 152/65 H 94 10/07/24 08:00 10/07/24 08:00 10/07/24 08:00 10/07/24 08:00 10/07/24 08:00 General: Other (Elderly, chronically ill, frail) HEENT: Atraumatic, Other (LFNC) Neck: Supple Respiratory: Other (scattered b/l rales, non tachypnec) Cardiovascular: Other (Non tachy, cardiac murmur) Gastrointestinal: Soft and benign, Non-distended, No tenderness Musculoskeletal: Other (No sig pitting edema, shins non tender) Integumentary: No rashes Neurological: Normal speech, Normal tone, Normal affect Laboratory Data (last 24 hrs) 10/06/24 10/06/24 10/06/24 14:45 14:45 14:45 WBC 11.60 H Hgb 10.5 L Hct 31.4 L Plt Count 250 PT 13.5 H INR 1.19 Sodium 124 L Potassium 5.4 H BUN 42 H Creatinine 2.69 H Glucose 100 Magnesium 2.0 Total Bilirubin 0.5 AST 40 H ALT 20 Alkaline Phosphatase 85 Lipase 32 Conclusions/Impression: A/P) Stage 1 DANIEL likely due to hypovolemia, other. No hydro on imaging on latest CT or in the past On underling CKD IV with hx of notable proteinuria on prior spot urine testing (macroalbuminuria and Up/c > 3 gm), prior DANIEL episodes. 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 Uosm > 100, Мария > 25. Will see if Na fails to rise or trends lower on isotonic IVF HTN with CKD -Mod elevated supine/sitting, check orthostatic vitals if not checked, trend, can resume CCB with holding parameters Hyperkalemia, mild -In setting of above, ARB listed among home meds, will likely resume if renal function tests remain elevated and BP elevated/non orthostatic Enzo Hannah MD, EDEL
[2024-10-07] MEDS: NA CHLORIDE 0.9% 1,000 ML IV SCH (13:05)
--- NOTE | 2024-10-07 17:58 | P.PN ---
Date of Service: 10/07/24 Subjective Awake, feeling better this morning no new complaints Will continue the IVF, sodium has improved ROS 10 point ROS as noted above, otherwise negative Physical Exam General: Alert and Oriented x3, Cooperative HEENT: Atraumatic, Normocephalic, PERRLA, EOMI Neck: Supple Respiratory: Expiratory wheezes, nonlabored breathing, on 2 LNC Cardiovascular: No edema, Normal pulses, Regular rate/rhythm, Normal S1 S2, No gallops, No rubs, No murmurs Gastrointestinal: Normal bowel sounds, Soft and benign on palpation Musculoskeletal: No clubbing Integumentary: Other (Multiple bruises on arms and legs, a few mild skin tears to the right elbow into the right hand noted) Neurological: Normal speech, Normal strength at 5/5 x4 extr, Normal tone, Sensation intact Vitals Reviewed Problem list Hyponatremia Hyperkalemia Pneumonia Acute metabolic encephalopathy CKD, stage III Diabetes Mellitus Hypertension Assessment and Plan Hyponatremia Hyperkalemia -Continuous telemetry -Kayexalate x1 -Gentle IVF -Continue to monitor Pneumonia -duonebs -rocephin/zithromax -On home O2 -Dr. Porras consulted Acute metabolic encephalopathy CKD, stage III -nephrology consulted Diabetes Mellitus -Accuceheck with SSI Hypertension -Continue home medications DVT ppx heparin Full code LOS 2 days <Trista Catalan - Last Filed: 10/07/24 17:30> I have personally seen and evaluated the patient. I have reviewed the history, physical exam findings, and assessment provided by Shayy Catalan NP. I agree with the plan of care as documented <Yogesh Boyer - Last Filed: 10/07/24 23:47>
[2024-10-07] MEDS: AMLODIPINE 5 MG TAB PO SCH (20:16)
[2024-10-08 06:09] LABS: Absolute Basophils 0.1 K/uL (0-0.5); Absolute Lymphocytes (CBC) 0.4 K/uL (0.7-4.9); Absolute Monocytes 0.8 K/uL (0.1-1.3); Absolute Neutrophil 19.8 K/uL (1.8-8.0); Basophils % 0.4 % (0-1.3); Hematocrit 31.6 % (39.6-49.0); Hemoglobin 10.3 g/dL (13.6-17.9); Lymphocytes % 2.1 % (15.3-44.8); MCH 28.4 pg (27.0-35.0); MCHC 32.6 g/dL (32.0-36.0); MCV 87.2 fL (80-100); MPV 8.3 fL (7.6-11.3); Monocytes % 3.7 % (3.3-12.3); Neutrophils % 93.8 % (41.7-73.7); Platelets 267 thou/uL (152-406); RBC Red Blood Cell Count 3.63 M/uL (4.33-5.43); Red Cell Distribution Width 15.3 % (12.1-15.2)
[2024-10-08 06:31] LABS: Anion Gap 10.9 mEq/L (5.0-15.0); Magnesium 2.1 mg/dL (1.6-2.4); Phosphorus 5.4 mg/dL (2.5-4.9); Potassium 3.9 mEq/L (3.5-5.1)
[2024-10-08 07:17] LABS: Atypical Lymphocytes 1 %; Blood Morphology Comment NOT SEEN (NOT SEEN); Differential Total Cells Count 100; Lymphocytes 2 % (15-42); Monocytes 1 % (0-10); Platelet Estimate ADEQ; Segmented Neutrophils 96 % (40-80)
[2024-10-08] MEDS: AMPICILLIN/SULBACT 3 GM in NA CHLORIDE 0.9% 100 ML IV SCH (09:09)
[2024-10-08] MEDS: D5 0.9 NS 1,000 ML IV SCH (11:08)
--- NOTE | 2024-10-08 11:40 | P.PN ---
Nephrology note (S) Pt seen sitting in chair, reports on going sig weakness, remains on O2, upset because he feels he may be getting discharged soon but reports still feeling poorly with acute change c/w baseline. Pt re-assured, POC discussed Vitals reviewed in the EMR General: Other (Elderly, chronically ill, frail) HEENT: Atraumatic, Other (LFNC) Neck: Supple Respiratory: Other (scattered b/l rales, non tachypnec, diminished at bases) Cardiovascular: Other (Non tachy, cardiac murmur) Gastrointestinal: Soft and benign, Non-distended, No tenderness Musculoskeletal: Other (No sig pitting edema, shins non tender) Integumentary: No rashes Neurological: Normal speech, Normal tone, Normal affect, symmetric muscle strength of LE 4/5, no tremors noted Laboratory Data (last 24 hrs) Reviewed in the EMR Conclusions/Impression: A/P) Stage 1 DANIEL likely due to hypovolemia, other. No hydro on imaging on latest CT or in the past On underling CKD IV with hx of notable proteinuria on prior spot urine testing (macroalbuminuria and Up/c > 3 gm), prior DANIEL episodes. 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 Uosm > 100, Мария > 25. Na level slowly rising on isotonic IVF. HTN with CKD -Mod elevated supine/sitting, check orthostatic vitals if not checked, trend, did resume CCB with holding parameters Hyperkalemia, mild -In setting of above, but since resolved. ARB listed among home meds,will likely resume at lower if renal function tests remain within baseline range and BP elevated/non orthostatic Dyspnea, PNA unspecified organism. Weakness, generalized. Falls, unspecified -W/u per IM team, trauma w/u had been done in the ER. On Abx per IM team. Obtain PT ryan Hannah MD, EDEL
--- NOTE | 2024-10-08 12:23 | RAD REPORT ---
EXAMINATION: ONE VIEW CHEST XR CLINICAL INDICATION: Dyspnea, O2 needs, PNA, leukocytosis TECHNIQUE: Frontal chest projection is submitted. Examination is limited by patient positioning and t echnique. COMPARISON: 10/06/2024 FINDINGS: Patchy airspace opacity is present involving the left lung, progressive since comparative study, like ly pneumonia. The right lung is grossly clear. The heart is moderately enlarged. No displaced fractures identified. IMPRESSION: Moderate worsening in left-sided infiltrate pattern likely worsening pneumonia.
[2024-10-08] MEDS: CALCIUM ACETATE 667 MG TAB PO SCH (14:06)
--- NOTE | 2024-10-08 15:49 | P.PN ---
Date of Service: 10/08/24 Subjective Good conversation, some intermittent confusion Increased white blood cells, antibiotics changed to Unasyn Will continue the IVF, sodium has improved ROS 10 point ROS as noted above, otherwise negative Physical Exam General: AAOx3, Cooperative HEENT: Atraumatic, Normocephalic, PERRLA, EOMI Neck: Supple Respiratory: Expiratory wheezes, nonlabored breathing, on 2 LNC Cardiovascular: No edema, Normal pulses, Regular rate/rhythm Gastrointestinal: Normal bowel sounds, Soft and benign on palpation Musculoskeletal: No clubbing Integumentary: Other (Multiple bruises on arms and legs, a few mild skin tears to the right elbow into the right hand noted) Neurological: Normal speech, Normal strength at 5/5 x4 extr, Normal tone, Sensation intact Vitals Reviewed Problem list Hyponatremia Hyperkalemia Pneumonia Leukocytosis Acute metabolic encephalopathy CKD, stage III Decreased PO intake Dysphagia Diabetes Mellitus- hypoglycemia Hypertension Assessment and Plan Hyponatremia Hyperkalemia -Continuous telemetry -Kayexalate x1 -Gentle IVF -Continue to monitor -Sodium improving Pneumonia Leukocytosis -duonebs -rocephin/zithromax stopped, Unasyn started (10/08) -On home O2 Acute metabolic encephalopathy CKD, stage III -nephrology consulted - gentle IVF Decreased PO intake Dysphagia -BARKER OPERATOR consulted, minced moist with thin liquids -D5 NS started Diabetes Mellitus- hypoglycemia -Accuceheck with SSI -D5 NS started Hypertension -Continue home medications DVT ppx heparin Full code LOS 2 days <Trista Catalan - Last Filed: 10/08/24 15:37> I have personally seen and evaluated the patient. I have reviewed and agree with the history, physical exam findings, assessment, and plan of Shayy Catalan. CORE CUTTER. <Yogesh Boyer - Last Filed: 10/08/24 20:20>
[2024-10-08] MEDS: QUETIAPINE 25 MG TAB PO SCH (20:53)
[2024-10-09 05:21] LABS: Absolute Basophils 0.1 K/uL (0-0.5); Absolute Lymphocytes (CBC) 0.8 K/uL (0.7-4.9); Absolute Monocytes 0.7 K/uL (0.1-1.3); Absolute Neutrophil 14.2 K/uL (1.8-8.0); Basophils % 0.3 % (0-1.3); Eosinophils % 0.2 % (0-4.4); Hematocrit 29.7 % (39.6-49.0); Hemoglobin 9.6 g/dL (13.6-17.9); Lymphocytes % 5.4 % (15.3-44.8); MCH 28.3 pg (27.0-35.0); MCHC 32.5 g/dL (32.0-36.0); MCV 87.3 fL (80-100); MPV 8.3 fL (7.6-11.3); Monocytes % 4.5 % (3.3-12.3); Platelets 236 thou/uL (152-406); Red Cell Distribution Width 15.5 % (12.1-15.2)
[2024-10-09 05:27] LABS: Neutrophils % 89.6 % (41.7-73.7)
[2024-10-09 05:37] LABS: Anion Gap 9.3 mEq/L (5.0-15.0); Magnesium 2.2 mg/dL (1.6-2.4); Phosphorus 4.1 mg/dL (2.5-4.9); Potassium 3.3 mEq/L (3.5-5.1)
[2024-10-09] MEDS: DULOXETINE 30 MG CAP PO SCH (09:07)
--- NOTE | 2024-10-09 10:41 | P.PN ---
Nephrology note (S) Pt seen lying in bed, remains on O2, reports cough intermittent, repeat CXR findings noted, speech eval noted. Renal function tests discussed Vitals reviewed in the EMR General: Other (Elderly, chronically ill, frail) HEENT: Atraumatic, Other (LFNC) Neck: Supple Respiratory: Other ( non tachypnec, diminished at bases, Lt > RT) Cardiovascular: Other (Non tachy, cardiac murmur) Gastrointestinal: Soft and benign, Non-distended, No tenderness Musculoskeletal: Other (No sig pitting edema, shins non tender) Integumentary: No rashes Neurological: Sleepy, awakens easily, responds briefly, no tremors noted Laboratory Data (last 24 hrs) Reviewed in the EMR Conclusions/Impression: A/P) Stage 1 DANIEL likely due to hypovolemia, other. No hydro on imaging on latest CT or in the past On underling CKD IV with hx of notable proteinuria on prior spot urine testing (macroalbuminuria and Up/c > 3 gm), prior DANIEL episodes. 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 Uosm > 100, Мария > 25. Na level slowly rising on isotonic IVF. Will further lower D5NS IVF to 30 cc/hr and then d/c when current bag completes Hypokalemia -Will replete with PO KCL HTN with CKD -Mod elevated supine/sitting initially, check orthostatic vitals if not checked, trend, did resume CCB with holding parameters, BP non elevated this AM Hyperkalemia, mild -In setting of above, but since resolved. ARB listed among home meds, but will hold off on resuming currently Dyspnea, PNA unspecified organism. Weakness, generalized. Falls, unspecified -On Abx per IM team, complete course, trend WBC. Obtain PT ryan Hannah MD, EDEL
[2024-10-09] MEDS: POTASSIUM CL SA 10 MEQ TAB PO ONE (11:41)
[2024-10-09] MEDS: ACETAMINOPHEN 500 MG TAB PO PRN (11:41)
[2024-10-09] MEDS: D5 0.9 NS 1,000 ML IV SCH (11:42)
--- NOTE | 2024-10-09 13:01 | RAD REPORT ---
Modified barium swallow exam with speech pathology service HISTORY: [facility] difficulty swallowing Fluoroscopy Time: 7:50 minutes IMPRESSION: Please see the speech pathology service report for details. Barium contrast of multiple consistencies was provided the patient orally by the speech pathology dep artment. Fluoroscopic observation was performed during swallowing. The radiologist was not present for the examination. Provided images demonstrate no evidence for gloria subglottic tracheal aspiration .
--- NOTE | 2024-10-09 13:15 | P.PN ---
Subjective Date of Service: 10/09/24 Primary Care Provider: SUNIL Chief Complaint: Pneumonia, Hyponatremia, Hyperkalemia, AMS Subjective: No new changes, Improving, C/O voiced (Continuing to be tired buthas an increased appetite) <MohrSusan - Last Filed: 10/09/24 16:32> Date of Service: 10/09/24 <Yogesh Boyer - Last Filed: 10/09/24 17:20> Review of Systems 10-point ROS is otherwise unremarkable General: Weakness Eyes: Unremarkable ENT: Unremarkable Respiratory: SOB with Excertion Cardiovascular: Unremarkable Gastrointestinal: Unremarkable Genitourinary: Unremarkable Integumentary: Unremarkable Neurological: Unremarkable Lymphatics: Unremarkable <Susan Mohr - Last Filed: 10/09/24 16:32> Physical Examination - Vital Signs Temperature: 97.8 F Blood Pressure: 145/66 Pulse: 72 Respirations: 15 Pulse Ox (%): 93 - Physical Exam General: Alert, In no apparent distress HEENT: Atraumatic, PERRLA, EOMI Neck: Supple, JVD not distended Respiratory: Diminished, Expiratory wheezes, Other (on 2L/NC ) Cardiovascular: No edema Capillary refill: <2 Seconds Gastrointestinal: Normal bowel sounds, No tenderness Musculoskeletal: No tenderness Integumentary: No rashes Neurological: Normal speech, Normal strength at 5/5 x4 extr, Normal affect External genitalia: Deferred Rectal: Deferred - Studies Medications List Reviewed: Yes <MohrSusan - Last Filed: 10/09/24 16:32> Assessment And Plan - Plan Pneumonia, likely aspiration Leukocytosis, improved -CXR on 10/08 reviewed with moderate worsening in left-sided infiltrate pattern likely worsening pneumonia -Continue duonebs Q6h -Abx escalated to Unasyn, started (10/08) -On home O2 @2L/NC -Monitor 02 sats goal >92% Hyponatremia, improving Hyperkalemia, resolved CKD, stage III -Nephrology consulted and following -Updated nephro recs for decreased in D5NS to 30mL/hr -Continue to monitor kidney function -Monitor on continuous telemetry -Current K+3.3, Na+134, Hgb 9.6, creat 2.32 Acute metabolic encephalopathy, improved -CTH negative -UA negative for UTI -PT consulted and following Dysphagia -LOOP CUTTER consulted with recs for minced moist with thin liquids -HOB elevated with meals -Mag & phos ordered w/morning labs -Oral Intake is improving -Aspiration precautions Diabetes Mellitus w/Hypoglycemia -Accu-checks ACHS -Carb controlled diet -Continue D5 NS for now -Encourage oral intake Hypertension -Continue home med Amlodipine -Monitor BP per unit protocol DVT ppx: Heparin Code Status: Full Code Discharge Plan: Assisted (DC back to previous SNF) Plan to discharge in: 48 Hours - Code Status/Comfort Care Code Status Assessed: Yes (FULL CODE) <Susan Mohr - Last Filed: 10/09/24 16:32> Physician Review: Patient Assessed, Agree with Above Assessment and Plan <Yogesh Boyer - Last Filed: 10/09/24 17:20>
[2024-10-10 05:59] LABS: Absolute Lymphocytes (CBC) 0.6 K/uL (0.7-4.9); Absolute Monocytes 0.5 K/uL (0.1-1.3); Absolute Neutrophil 6.1 K/uL (1.8-8.0); Basophils % 0.6 % (0-1.3); Eosinophils % 0.5 % (0-4.4); Hematocrit 30.4 % (39.6-49.0); Hemoglobin 9.9 g/dL (13.6-17.9); MCHC 32.7 g/dL (32.0-36.0); MCV 88.7 fL (80-100); MPV 8.5 fL (7.6-11.3); Monocytes % 6.5 % (3.3-12.3); Neutrophils % 84.4 % (41.7-73.7); Nucleated Red Blood Cells % 0.1 % (0-0); Platelets 203 thou/uL (152-406); RBC Red Blood Cell Count 3.42 M/uL (4.33-5.43)
[2024-10-10 06:12] LABS: Anion Gap 7.7 mEq/L (5.0-15.0); Magnesium 2.4 mg/dL (1.6-2.4); Phosphorus 5.3 mg/dL (2.5-4.9); Potassium 3.7 mEq/L (3.5-5.1)
[2024-10-10] MEDS: AMOX/K CLAV 500 MG TAB PO SCH (09:42)
--- NOTE | 2024-10-10 11:07 | P.PN ---
Nephrology note (S) Pt seen lying in bed, remains on O2, denies as much dizziness or weakness. Renal function tests discussed Vitals reviewed in the EMR General: Other (Elderly, chronically ill, frail) HEENT: Atraumatic, Other (LFNC) Neck: Supple Respiratory: Other ( non tachypnec, diminished at bases, Lt > RT) Cardiovascular: Other (Non tachy, cardiac murmur) Gastrointestinal: Soft and benign, Non-distended, No tenderness Musculoskeletal: Other (No sig pitting edema, shins non tender) Integumentary: No rashes Neurological: Sleepy, awakens easily, responds briefly, no tremors noted Laboratory Data (last 24 hrs) Reviewed in the EMR Conclusions/Impression: A/P) Stage 1 DANIEL likely due to hypovolemia, other, reolved. No hydro on imaging on latest CT or in the past On underling CKD IV with hx of notable proteinuria on prior spot urine testing (macroalbuminuria and Up/c > 3 gm), prior DANIEL episodes. 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 Uosm > 100, Мария > 25. Na level slowly geovanna on isotonic IVF. Will d/c any maintenance IVF Hypokalemia -Will replete with PO KCL PRN HTN with CKD -Mod elevated supine/sitting initially, check orthostatic vitals if not checked, trend, did resume CCB with holding parameters, BP non elevated this AM, was likely getting more medications as OP than apparently needed currently Hyperkalemia, mild -In setting of above, but since resolved. ARB listed among home meds, but will hold off on resuming currently Dyspnea, PNA unspecified organism. Weakness, generalized. Falls, unspecified -On Abx per IM team, complete course, trend WBC. Obtain PT ryan Hannah MD, EDEL
--- NOTE | 2024-10-10 15:09 | P.PN ---
Subjective Date of Service: 10/10/24 Primary Care Provider: SUNIL Chief Complaint: Pneumonia, Hyponatremia, Hyperkalemia, AMS Subjective: Improving, C/O voiced (Patient states that he still feels weak and short of breath and that he doesn't feel like he's ready to discharge back to his facility at this time) Review of Systems General: Weakness, Malaise Respiratory: SOB with Excertion Physical Examination - Vital Signs Temperature: 97.7 F Blood Pressure: 151/68 Pulse: 78 Respirations: 14 Pulse Ox (%): 90 - Physical Exam General: Alert, In no apparent distress, Other (fatigued) HEENT: Atraumatic, PERRLA, EOMI Neck: Supple, JVD not distended Respiratory: Normal air movement, Diminished, Other (on 2L/NC) Cardiovascular: Regular rate/rhythm, Normal S1 S2 Capillary refill: <2 Seconds Gastrointestinal: Normal bowel sounds, No tenderness Musculoskeletal: No tenderness Integumentary: No rashes Neurological: Normal speech, Normal tone, Normal affect Lymphatics: No axilla or inguinal lymphadenopathy External genitalia: Deferred Rectal: Deferred - Studies Medications List Reviewed: Yes Assessment And Plan - Plan Pneumonia, likely aspiration Leukocytosis, improved -CXR on 10/08 reviewed with moderate worsening in left-sided infiltrate pattern likely worsening pneumonia -Continue duonebs Q6h -Abx de-escalated to Augmentin with EOT 10/13 -On home O2 @2L/NC -Monitor 02 sats goal >92% Hyponatremia, improving Hyperkalemia, resolved CKD, stage III -Nephrology consulted and following -D5NS discontinued on 10/10 -Continue to monitor kidney function -Monitor on continuous telemetry -Current K+3.3, Na+134, Hgb 9.6, creat 2.32 Acute metabolic encephalopathy, improved -CTH negative -UA negative for UTI -PT consulted and following -Hold melatonin and home Seroquel qhs X1 night for re-evaluation of AM mental status Dysphagia -FISHING INSTRUCTOR consulted with recs for minced moist with thin liquids -HOB elevated with meals -Mag & phos ordered w/morning labs -Oral Intake is improving -Aspiration precautions Diabetes Mellitus w/Hypoglycemia -Accu-checks ACHS -Carb controlled diet -Continue D5 NS for now -Encourage oral intake Hypertension -Continue home med Amlodipine -Home Losartan held -Monitor BP per unit protocol -Pending orthostatic vital signs at this time, patient has been too weak and unsafe to complete DVT ppx: Heparin Code Status: Full Code Discharge Plan: Senior Living (DC back to [facility] 10/11) Plan to discharge in: 24 Hours - Code Status/Comfort Care Code Status Assessed: Yes (FULL CODE) Physician Review: Patient Assessed, Agree with Above Assessment and Plan
[2024-10-11 05:50] LABS: Absolute Eosinophils 0.1 K/uL (0-0.5); Absolute Lymphocytes (CBC) 0.4 K/uL (0.7-4.9); Absolute Monocytes 0.6 K/uL (0.1-1.3); Absolute Neutrophil 6.9 K/uL (1.8-8.0); Basophils % 0.5 % (0-1.3); Eosinophils % 0.8 % (0-4.4); Hemoglobin 10.7 g/dL (13.6-17.9); Lymphocytes % 5.3 % (15.3-44.8); MCH 28.9 pg (27.0-35.0); MCHC 33.3 g/dL (32.0-36.0); MCV 86.9 fL (80-100); MPV 8.8 fL (7.6-11.3); Monocytes % 7.3 % (3.3-12.3); Neutrophils % 86.1 % (41.7-73.7); Nucleated Red Blood Cells % 0.1 % (0-0); Platelets 231 thou/uL (152-406); RBC Red Blood Cell Count 3.68 M/uL (4.33-5.43); Red Cell Distribution Width 15.6 % (12.1-15.2)
[2024-10-11 05:51] LABS: Anion Gap 8.6 mEq/L (5.0-15.0); Magnesium 2.3 mg/dL (1.6-2.4); Phosphorus 3.4 mg/dL (2.5-4.9); Potassium 3.6 mEq/L (3.5-5.1)
--- NOTE | 2024-10-11 07:14 | P.PN ---
Subjective Date of Service: 10/11/24 Primary Care Provider: SUNIL Chief Complaint: Pneumonia, Hyponatremia, Hyperkalemia, AMS Physical Examination - Vital Signs Temperature: 97.8 F Blood Pressure: 160/85 Pulse: 89 Respirations: 19 Pulse Ox (%): 95 - Studies Medications List Reviewed: Yes Assessment And Plan - Plan Pneumonia, likely aspiration Leukocytosis, improved -CXR on 10/08 reviewed with moderate worsening in left-sided infiltrate pattern likely worsening pneumonia -Continue duonebs Q6h -Abx de-escalated to Augmentin with EOT 10/13 -On home O2 @2L/NC -Monitor 02 sats goal >92% Hyponatremia, improving Hyperkalemia, resolved CKD, stage III -Nephrology consulted and following -D5NS discontinued on 10/10 -Continue to monitor kidney function -Monitor on continuous telemetry -Current K+3.6, Na+140, Hgb 10.7, creat 2.42 Acute metabolic encephalopathy, improved -CTH negative -UA negative for UTI -PT consulted and following -Hold melatonin and home Seroquel qhs X1 night for re-evaluation of AM mental status Dysphagia -CHRONOMETER ADJUSTER consulted with recs for minced moist with thin liquids -HOB elevated with meals -Mag & phos ordered w/morning labs -Oral Intake is improving -Aspiration precautions Diabetes Mellitus w/Hypoglycemia -Accu-checks ACHS -Carb controlled diet -Continue D5 NS for now -Encourage oral intake Hypertension -Continue home med Amlodipine (with parameters) -Home Losartan held -Monitor BP per unit protocol -Pending orthostatic vital signs at this time, patient has been too weak and unsafe to complete Hx of Agitation/Insomnia -Seroquel 25mg at bedtime (held due to extreme lethargy) -Melatonin discontinued for now DVT ppx: Heparin Code Status: Full Code Discharge Plan: [facility] Plan to discharge in: 24 Hours - Code Status/Comfort Care Code Status Assessed: Yes (FULL CODE) Physician Review: Patient Assessed, Agree with Above Assessment and Plan
[2024-10-11 08:29] VITALS: TEMP 97.6
[2024-10-11 10:28] VITALS: O2SAT 95
[2024-10-11 12:00] VITALS: BP 153/65
--- NOTE | 2024-10-11 13:52 | P.DS ---
Admission Date: 10/06/24 Discharge Date: 10/11/24 Primary Care Provider: SUNIL Disposition: TRANSFER TO ASSISTED Discharge Condition: GOOD Reason for Admission: Pneumonia, Hyponatremia, Hyperkalemia, AMS Brief History of Present Illness: This is a 79-year-old male patient with a history of diabetes, hyperkalemia, muscle wasting, CKD, hypertension that presented to the emergency room from snf for altered mentation, muscle weakness, and frequent falls. Patient was worked up in the emergency room and was found to have a sodium of 124, potassium of 5.4, chloride of 93, bicarb of 25, BUN of 42, creatinine 2.69, glucose of 100. Creatinine improved from previous admissions. History of CKD. White cell count showed a mild elevation at 11.6 with a hemoglobin of 10.5, hematocrit of 31.4, platelet of 250. BNP of 749 and troponin of 16.5. Patient had trauma gram with no acute traumatic findings but shows possible left base pneumonia present versus atelectasis. Medicine was requested for admission at that time due to confusion, hyponatremia, hyperkalemia. Patient upon initial assessment is alert and oriented x 4 but with trouble recalling information. Hospital Course: Pneumonia CXR with pneumonia, Abx de-escalated to Augmentin with EOT 10/16/2024. Continue on reported home O2 @2L/NC PRN and monitor 02 sats. Hyponatremia Hyperkalemia CKD, Stage III Nephrology consulted and followed while inpatient. Patient with improved electrolytes and kidney function after completion of fluid resuscitation. Continue to monitor kidney function and follow up with nephrology outpatient. Per Nephro recs: Flomax resumed on discharge, use just 0.4 mg qHS. Losartan held for inpatient stay. Acute Metabolic Encephalopathy Frequent Falls CT of Head along with urinalysis were negative. Re-evaluation of bedtime medications recommended. Patient should continue fall risk precautions while at outpatient facility and worked with PT well while inpatient. Dysphagia Speech consulted with recs for minced moist with thin liquids. HOB elevated with meals. Dysphagia improved while impatient however aspiration precautions are still recommended at this time Diabetes Mellitus w/Hypoglycemia Continue to blood glucose at facility and carb controlled diet .Encourage oral intake. Hypertension Continued home med Amlodipine with holding parameters while inpatient, home Losartan held and to be reevaluated for restart. Maintained stable blood pressure while inpatient. Outpatient follow up recommended Vital Signs/Physical Exam: Temp Pulse Resp BP Pulse Ox 97.6 F 87 18 153/65 H 94 10/11/24 11:33 10/11/24 11:59 10/11/24 11:59 10/11/24 11:59 10/11/24 11:59 Laboratory Data at Discharge: WBC 8.10 thou/uL (4.3-10.9) 10/11/24 05:03 Hgb 10.7 g/dL (13.6-17.9) L D 10/11/24 05:03 Hct 32.0 % (39.6-49.0) L 10/11/24 05:03 Plt Count 231 thou/uL (152-406) 10/11/24 05:03 PT 13.5 SECONDS (10-13.0) H 10/06/24 14:45 INR 1.19 10/06/24 14:45 Sodium 140 mEq/L (136-145) 10/11/24 05:03 Potassium 3.6 mEq/L (3.5-5.1) 10/11/24 05:03 BUN 41 mg/dL (7-18) H 10/11/24 05:03 Creatinine 2.42 mg/dL (0.70-1.30) H 10/11/24 05:03 Glucose 101 mg/dL (74-106) 10/11/24 05:03 Phosphorus 3.4 mg/dL (2.5-4.9) 10/11/24 05:03 Magnesium 2.3 mg/dL (1.6-2.4) 10/11/24 05:03 Total Bilirubin 0.5 mg/dL (0.2-1.0) 10/06/24 14:45 AST 40 U/L (15-37) H 10/06/24 14:45 ALT 20 U/L (16-61) 10/06/24 14:45 Alkaline Phosphatase 85 U/L (45-117) 10/06/24 14:45 Lipase 32 U/L (13-75) 10/06/24 14:45 Home Medications: Amlodipine [Norvasc*] 5 mg PO DAILY #30 tab 06/05/24 Acetaminophen [Tylenol] 650 mg PO Q4HR PRN 10/06/24 Albuterol Sulfate [Albuterol Sulfate 0.083% Neb Soln] 3 ml IN Q4HR PRN 10/06/24 Cetirizine HCl [All Day Allergy Relief] 10 mg PO DAILY 10/06/24 Duloxetine HCl [Cymbalta] 30 mg PO DAILY 10/06/24 Ipratropium/Albuterol Sulfate [Iprat-Albut 0.5-3(2.5) mg/3 ml] 3 ml IH Q6HR PRN 10/06/24 Lidocaine 4% Patch [Lidoderm 5% Patch*] 1 appl TOP BEDTIME 10/06/24 Sennosides [Senna] 8.6 mg PO DAILY 10/06/24 Tamsulosin [Flomax*] 0.4 mg PO BID 10/06/24 Amox/Clavulanate [Augmentin 500-125 mg Tab*] 500 mg PO BID #0 tab 10/10/24 Calcium Acetate [Phoslo*] 667 mg PO TIDWM tab 10/10/24 Quetiapine [Seroquel*] 25 mg PO BEDTIME tab 10/10/24 Physician Discharge Instructions: Patient to follow up with Nephrology within 1-2weeks and have repeat lab work. Take all medications as prescribed. Continue oral antibiotics for 5 more days. Monitor blood glucose and blood pressure. Maintain good oral intake. Diet: Renal Activity: Fall precautions Followup: Enzo Hannah [ACTIVE - CAN ADMIT] - Delfin Reynolds MD [Primary Care Provider] - Time spent managing pt's care (in minutes): 33
== END 2024-10-11 12:47 | DRG 640 ==
LOC: ER 13:32 → ERHOLD 17:34 → 2ND 20:06
PROVIDERS: ADMIT Hospitalist; ATTEND Internal Medicine Sleep Medicine
DX: E87.1 Hypo-osmolality and hyponatremia (principal); G93.41 Metabolic encephalopathy; J18.9 Pneumonia, unspecified organism; N17.9 Acute kidney failure, unspecified; N18.4 Chronic kidney disease, stage 4 (severe); E87.5 Hyperkalemia; I12.9 Hypertensive chronic kidney disease with stage 1 through stage 4 chronic kidney disease, or unspecified chronic kidney disease; E11.22 Type 2 diabetes mellitus with diabetic chronic kidney disease; E11.649 Type 2 diabetes mellitus with hypoglycemia without coma; E66.9 Obesity, unspecified; E78.5 Hyperlipidemia, unspecified; S40.812A Abrasion of left upper arm, initial encounter; S40.811A Abrasion of right upper arm, initial encounter; F17.210 Nicotine dependence, cigarettes, uncomplicated; R29.6 Repeated falls; Z88.8 Allergy status to other drugs, medicaments and biological substances; Z91.81 History of falling; Z68.25 Body mass index [BMI] 25.0-25.9, adult; Z79.899 Other long term (current) drug therapy
CPT/HCPCS: 36415; 70450; 71045; 71250; 72125; 72170; 74176; 74230; 80048; 80076; 81001; 82947; 83605; 83690; 83735; 83880; 83930; 83935; 84100; 84300; 84443; 84484; 85025; 85610; 87040; 87086; 87088; 92526; 92610; 92611; 93005; 94640; 94760; 96374; 96375; 97110; 97116; 97161; 97530; 99285; J0295; J0696; J1644; J7030; J7042; J7050; J7613; J7644

== ENCOUNTER 2024-10-12 22:49 | Emergency (ER) | payer MEDICARE ==
--- OUTSIDE RECORDS SUMMARY | 2024-10-12 22:54 | XMS REPORT | Continuity of Care Document ---
Author Name Unknown Address [address] [facility] [address] [place] [address] [facility] Address [address] [facility] 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 Primary Care Physician Unavailab LAUREN Grullon Attending Clinician Unavailable DIOR RUSH Attending Clinician Unavailab Kem Pang MD Attending Clinician KEVON BNUCH Attending Clinician Unavailable KEVON BUNCH Attending Clinician Unavailable Domi Nicole Attending Clinician + Kevon Bunch DO Attending Clinician + EMPERATRIZ MCFADDEN Attending Clinician Unavailab EMPERATRIZ Viramontes Attending Clinician Unavailab Cody Junior MD Attending Clinician + Emperatriz Mcfadden DO Attending Clinician Tereso Monreal MD Attending Clinician [phone] Leatha Lipscomb Attending Clinician [phone] YANELI PRIYANKLICHAANDREA Attending Clinician Unavailable ROCIO GROVES Attending Clinician Unavailable Priyank Groves DODamarisAndrea Attending Clinician [phone] LEONARDO BROWN Attending Clinician UnavailLeonardo Magana MD Attending Clinician + [phone] DOMI LAMAR Attending Clinician Unavailable Domi Nicole Attending Clinician [phone] Miller_S_AH Attending Clinician Unavailable Ajibade_O_AH Attending Clinician [...] [place] CLASS[place] PREMIUM HMO [id number] 2022 00:00:00 [place] [place] (MEDICARE REPLACEMENT/ADVANT AGE - HMO) [id number] 00:00:00 Problems Condition Name Condition Details Condition [...] Obesity Obesity Disease Active 04-19 00:00: 00 [facility] Cataract Cataract Disease Active 04-01 00:00: 00 Overview: Formattin g of this note might be different from the original. 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 [facility] Malingerin g Problem [facility] Encounter for wellness examinatio n in adult Problem [facility] Abdominal wall hernia Problem [facility] Other diseases of nasal cavity and sinuses(47 8.19) Other diseases of nasal cavity and sinuses(47 8.19) Disease Resolve d 2006-07 00:00: 00 2009-03-21 00:00:00 2009-03-21 09:11:44 [facility] Cough Cough Disease Resolve d 2006-07 00:00: 00 2009-03-21 00:00:00 2009-03-21 09:11:39 [facility] Allergies, Adverse Reactions, Alerts Allergy Name Allergy Type Status Severity Reaction(s) Onset Date Inactive Date Treating Clinician Comments Source No Known Allergie s Drug Active [facility] Tresiba Drug Active [facility] NO KNOWN ALLERGIE S Drug Class Active [facility] Social History Social Habit Start Date Stop Date Quantity Comments Source [facility] of tobacco use Cigarette Smoker [facility] Alcohol intake 2022-02-07 00:00:00 2022-02-07 00:00:00 Current drinker of alcohol (finding) [facility] Alcoholic beverage intake 2022-02-07 00:00:00 2022-02-07 00:00:00 Current drinker of alcohol (finding) [facility] History of Social function 2022-02-07 00:00:00 2022-02-07 00:00:00 [facility] Cigarettes smoked current (pack per day) - Reported 2007-09-05 00:00:00 2007-09-05 00:00:00 [facility] Cigarette pack-years 2007-09-05 00:00:00 2007-09-05 00:00:00 [facility] Tobacco Comment 2006-08-03 00:00:00 2006-08-03 00:00:00 has quit off/on for up to 7 years [facility] Alcohol Comment 2006-08-03 00:00:00 2006-08-03 00:00:00 0-2 drinks/month [facility] Sex assigned at 1945 00:00:00 1945 00:00:00 [facility] Smoking Status Start Date Stop Date Source Former Smoker [facility] Smokes tobacco daily 2007-09-05 00:00:00 [facility] Medications Ordered Medication Name Filled Medication Name Start Date Stop Date Current Medication? Ordering Clinician Indication Dosage Frequency Signature (SIG) Comments Components Source NaCl 0.9% (NS) bolus infusion 1,000 mL 04-19 18:45: 00 04-19 19:00 :00 No 1000mL at 999 mL/hr, 1,000 mL, IV Infusion, ONCE, 1 dose, On 04/19/24 at 1345, MADI [facility] meclizine (TRAVEL-EAS E (MECLIZINE) ) tablet 25 mg 01-15 16:15: 00 01-15 20:25 :00 No 25mg 25 mg, Oral, ONCE, 1 dose, On 01/15/23 at 1115, MADI [facility] meclizine 25 mg tablet 01-15 00:00: 00 Yes [id number] 25mg Take 1 tablet by mouth 3 (three) times daily as needed for Dizziness. [facility] metFORMIN 500 mg tablet 01-02 00:00: 00 Yes [id number] 500mg Take 1 tablet by mouth in the morning and 1 tablet in the evening. [facility] hydrocortis one 2.5 % rectal cream 01-02 00:00: 00 Yes [id number] Insert into rectum 2 (two) times daily. [facility] docusate (COLACE) 100 mg capsule 01-02 00:00: 00 02-02 04:59 :00 No [id number] 100mg Take 1 capsule by mouth in the morning for 30 days. [facility] omeprazole 40 mg capsule 01-02 00:00: 00 02-02 04:59 :00 No [id number] 40mg Take 1 capsule by mouth in the morning for 30 days. [facility] prednisoLON E acetate (PRED-FORTE ) 1 % ophthalmic suspension drops 10-27 00:00: 00 Yes 1[drp] Place 1 Drop in right eye 4 (four) times daily. [facility] diclofenac (VOLTAREN) 0.1 % ophthalmic solution 10-27 00:00: 00 Yes 1[drp] Place 1 Drop in right eye 4 (four) times daily. [facility] ciprofloxac in HCl (CILOXAN) 0.3 % opthalmic drops 10-27 00:00: 00 Yes 1[drp] Place 1 Drop in right eye 4 (four) times daily. [facility] LANTUS SOLOSTAR 100 unit/mL (3 mL) InPn 10-13 00:00: 00 Yes [facility] MULTIVITAMI N ORAL LIQD 2009-07 09:25: 45 Yes one daily [facility] FISH OIL ORAL 2009-07 09:25: 43 Yes po bid [facility] blood sugar diagnostic (CHEMSTRIP BG) strip 03-01 00:00: 00 Yes [id number] [facility] blood sugar diagnostic (CHEMSTRIP BG) strip 03-01 00:00: 00 Yes [id number] [facility] melatonin 10 mg tablet Take 1 tablet every day by oral route. melatonin 10 mg tablet Take 1 tablet every day by oral route. No 1 Q1D melatonin 10 mg tablet Take 1 tablet every day by oral route. [facility] duloxetine 30 mg capsule,del ayed release duloxetine 30 mg capsule,del ayed release No duloxetine 30 mg capsule,de layed release [facility] fluoxetine 10 mg capsule fluoxetine 10 mg capsule No fluoxetine 10 mg capsule [facility] losartan 25 mg tablet Take 1 mg every day by oral route. losartan 25 mg tablet Take 1 mg every day by oral route. No 1mg Q1D losartan 25 mg tablet Take 1 mg every day by oral route. [facility] albuterol sulfate 2.5 mg/3 mL (0.083 [...] 6 hours by inhalation route as needed. [facility] amlodipine 5 mg tablet Take 1 tablet every day by oral route. amlodipine 5 mg tablet Take 1 tablet every day by oral route. No 1 Q1D amlodipine 5 mg tablet Take 1 tablet every day by oral route. [facility] cetirizine 5 mg tablet Take 1 tablet every day by oral route. cetirizine 5 mg tablet Take 1 tablet every day by oral route. No 1 Q1D cetirizine 5 mg tablet Take 1 tablet every day by oral route. [facility] senna 8.6 mg tablet Take 2 tablets every day by oral route. senna 8.6 mg tablet Take 2 tablets every day by oral route. No 2 Q1D senna 8.6 mg tablet Take 2 tablets every day by oral route. [facility] simethicone 180 mg capsule Take 1 capsule twice a day by oral route as needed. simethicone 180 mg capsule Take 1 capsule twice a day by oral route as needed. No 1capsul e(s) BID simethicon e 180 mg capsule Take 1 capsule twice a day by oral route as needed. [facility] tamsulosin 0.4 mg capsule Take 1 capsule twice a day by oral route. tamsulosin 0.4 mg capsule Take 1 capsule twice a day by oral route. No 1capsul e(s) BID tamsulosin 0.4 mg capsule Take 1 capsule twice a day by oral route. [facility] triamcinolo ne acetonide 0.1 % lotion triamcinolo ne acetonide 0.1 % lotion No triamcinol one acetonide 0.1 % lotion [facility] Asprin Ec Low Dose 81 mg tablet,juan yed release Take 1 tablet every day by oral route. Asprin Ec Low Dose 81 mg tablet,juan yed release Take 1 tablet every day by oral route. No 1 Q1D Asprin Ec Low Dose 81 mg tablet,del ayed release Take 1 tablet every day by oral route. [facility] hydroxyzine HCl 25 mg [...] oral route as needed for 30 days. [facility] Levemir FlexTouch U-100 Insulin [...] the morning and 35 units at night. [facility] metoprolol tartrate 50 mg tablet Take 1 tablet twice a day by oral route as directed for 30 days. metoprolol tartrate 50 mg tablet Take 1 tablet twice a day by oral route as directed for 30 days. No 1 BID metoprolol tartrate 50 mg tablet Take 1 tablet twice a day by oral route as directed for 30 days. [facility] Immunizations Ordered Immunization Name Filled Immunization Name Date Status Comments Source Pneumococcal Polysaccharide, PPSV23 (PNEUMOVAX) 2008-09-07 00:00:00 Completed [facility] Pneumococcal Polysaccharide, PPSV23 (PNEUMOVAX) 2008-09-07 00:00:00 Completed [facility] Pneumococcal Polysaccharide, PPSV23 (PNEUMOVAX) 2008-09-07 00:00:00 Completed [facility] Pneumococcal Polysaccharide, PPSV23 (PNEUMOVAX) 2008-09-07 00:00:00 Completed [facility] Influenza Virus Vaccine 2007-05-31 00:00:00 Completed [facility] Influenza Virus Vaccine 2007-05-31 00:00:00 Completed [facility] Influenza Virus Vaccine 2007-05-31 00:00:00 Completed [facility] Influenza Virus Vaccine 2007-05-31 00:00:00 Completed [facility] Pneumococcal conjugate PCV20, polysaccharide [id number] conjugate, adjuvant, PF Pneumococcal conjugate PCV20, polysaccharide [id number] conjugate, adjuvant, PF Unknown Completed [facility] Influenza Virus Vaccine Unknown Completed [facility] Pneumococcal Polysaccharide, PPSV23 (PNEUMOVAX) Unknown Completed [facility] Influenza Virus Vaccine Unknown Completed [facility] Pneumococcal Polysaccharide, PPSV23 (PNEUMOVAX) Unknown Completed [facility] Vital Signs Vital Name Observation Time [...] [oz_av] [facility] Height 2024-06-14 18:08:00 177.836161 cm [facility] Weight 2024-06-14 18:08:00 77.462892 kg [facility] BMI (Body Mass Index) 2024-06-14 18:08:00 24.4 kg/m2 [facility] Height 2024-06-12 18:15:00 177.999862 cm [facility] Weight 2024-06-12 18:15:00 76.754393 kg [facility] BMI (Body Mass Index) 2024-06-12 18:15:00 24.2 kg/m2 [facility] Systolic blood pressure 2024-06-08 16:15:00 143 mm[Hg] [facility] Diastolic blood pressure 2024-06-08 16:15:00 81 mm[Hg] [facility] Heart rate 2024-06-08 16:15:00 82 /min [facility] Body temperature 2024-06-08 16:15:00 37 Monse [facility] Respiratory rate 2024-06-08 16:15:00 16 /min [facility] Body height 2024-06-08 16:15:00 177.8 cm [facility] Body weight 2024-06-08 16:15:00 81.647 kg [facility] BMI 2024-06-08 16:15:00 25.83 kg/m2 [facility] Oxygen saturation in Arterial blood by Pulse oximetry 2024-06-08 16:15:00 100 /min [facility] Systolic blood pressure 2024-06-06 11:53:00 157 mm[Hg] [facility] Diastolic blood pressure 2024-06-06 11:53:00 77 mm[Hg] [facility] Heart rate 2024-06-06 11:53:00 76 /min [facility] Body temperature 2024-06-06 11:53:00 36.94 Monse [facility] Respiratory rate 2024-06-06 11:53:00 20 /min [facility] Oxygen saturation in Arterial blood by Pulse oximetry 2024-06-06 11:53:00 97 /min [facility] Body height 2024-06-05 23:41:00 177.8 cm [facility] Body weight 2024-06-05 23:41:00 77.111 kg [facility] BMI 2024-06-05 23:41:00 24.39 kg/m2 [facility] Systolic blood pressure 2024-04-19 20:00:00 142 mm[Hg] [facility] Diastolic blood pressure 2024-04-19 20:00:00 127 mm[Hg] [facility] Heart rate 2024-04-19 20:00:00 56 /min [facility] Respiratory rate 2024-04-19 20:00:00 25 /min [facility] Oxygen saturation in Arterial blood by Pulse oximetry 2024-04-19 20:00:00 98 /min [facility] Body temperature 2024-04-19 17:24:00 37.06 Monse [facility] Body height 2024-04-19 17:24:00 177.8 cm [facility] Body weight 2024-04-19 17:24:00 79.833 kg [facility] BMI 2024-04-19 17:24:00 25.25 kg/m2 [facility] Systolic blood pressure 2023-12-05 15:00:00 137 mm[Hg] [place] [facility] Diastolic blood pressure 2023-12-05 15:00:00 75 mm[Hg] [facility] Heart rate 2023-12-05 15:00:00 74 /min [facility] Respiratory rate 2023-12-05 15:00:00 22 /min [facility] Oxygen saturation in Arterial blood by Pulse oximetry 2023-12-05 15:00:00 96 /min [facility] Body temperature 2023-12-05 13:07:00 36 Monse [facility] Body height 2023-12-05 13:07:00 177.8 cm [facility] Body weight 2023-12-05 13:07:00 84.369 kg [facility] BMI 2023-12-05 13:07:00 26.69 kg/m2 [facility] Systolic blood pressure 2023-01-16 20:00:00 160 mm[Hg] [facility] Diastolic blood pressure 2023-01-16 20:00:00 74 mm[Hg] [facility] Heart rate 2023-01-16 20:00:00 65 /min [facility] Body temperature 2023-01-16 20:00:00 36.33 Monse [facility] Respiratory rate 2023-01-16 20:00:00 18 /min [facility] Oxygen saturation in Arterial blood by Pulse oximetry 2023-01-16 20:00:00 98 /min [facility] Body weight 2023-01-16 14:47:00 90.719 kg [facility] BMI 2023-01-16 14:47:00 28.70 kg/m2 [facility] Systolic blood pressure 2023-01-15 23:00:00 144 mm[Hg] [facility] Diastolic blood pressure 2023-01-15 23:00:00 87 mm[Hg] [facility] Heart rate 2023-01-15 23:00:00 58 /min [facility] Respiratory rate 2023-01-15 23:00:00 18 /min [facility] Oxygen saturation in Arterial blood by Pulse oximetry 2023-01-15 23:00:00 99 /min [facility] Body temperature 2023-01-15 14:34:00 36.67 Monse [facility] Body weight 2023-01-15 14:34:00 90.719 kg [facility] BMI 2023-01-15 14:34:00 28.70 kg/m2 [facility] Systolic blood pressure 2023-01-02 19:00:00 139 mm[Hg] [facility] Diastolic blood pressure 2023-01-02 19:00:00 80 mm[Hg] [facility] Heart rate 2023-01-02 19:00:00 60 /min [facility] Respiratory rate 2023-01-02 19:00:00 16 /min [facility] Oxygen saturation in Arterial blood by Pulse oximetry 2023-01-02 19:00:00 99 /min [facility] Body temperature 2023-01-02 15:48:00 36.72 Monse [facility] Body height 2023-01-02 15:48:00 177.8 cm [facility] Body weight 2023-01-02 15:48:00 113.399 kg [facility] BMI 2023-01-02 15:48:00 35.87 kg/m2 [facility] Height 2020-10-27 00:00:00 70 [in_i] [facility] BMI (Body Mass Index) 2020-10-27 00:00:00 37.3 kg/m2 [facility] Body Weight 2020-10-27 00:00:00 260 [lb_av] [facility] BP Diastolic 2020-09-23 00:00:00 86 mm[Hg] [facility] Height 2020-09-23 00:00:00 70 [in_i] [facility] BMI (Body Mass Index) 2020-09-23 00:00:00 37.3 kg/m2 [facility] BP Systolic 2020-09-23 00:00:00 136 mm[Hg] [facility] Body Weight 2020-09-23 00:00:00 260 [lb_av] [facility] Height/Length Measured 2021-08-16 11:09:21 177.80 cm Weight Dosing 2021-08-16 11:09:21 108.86 kg Procedures Procedure Date / Time Performed Performing Clinicia n Source URINALYSIS 2024-06-06 03:10:00 Domi Lamar [facility] LIPASE 2024-06-06 01:43:00 Willard [facility] HEPATIC FUNCTION PANEL (80718) (ALB,T.PRO,BILI T,BU/BC,ALT,AST,ALK PHOS) 2024-06-06 01:43:00 Willard [facility] BASIC METABOLIC PANEL (NA, K, CL, CO2, GLUCOSE, BUN, CREATININE, CA) 2024-06-06 01:43:00 [facility] CBC WITH DIFF 2024-06-06 01:43:00 Domi Lamar [facility] EKG-12 LEAD 2024-04-19 20:31:42 [facility] 2024-04-19 19:31:00 Emperatriz [facility] CHEST 1 VW 2024-04-19 18:07:37 Emperatriz [facility]adden [facility] LIP[facility] 2024-04-19 17:34:00 Emperatriz Mcfadden [facility] TROPONIN I 2024-04-19 17:34:00 Emperatriz Mcfadden Un [facility] COMP. METABOLIC PANEL ([id number]) 2024-04-19 17:34:00 Emperatriz Mcfadden [facility] CBC WITH DIFF 2024-04-19 17:34:00 Emperatriz Mcfadden U [facility] N-TERMINAL PRO-BNP 2024-04-19 17:34:00 Estelita Mcfadden [facility] EKG-12 LEAD 2023-12-05 16:36:04 Tereso Monreal [facility] URINALYSIS 2023-12-05 15:21:00 Tereso Monreal [facility] CT CERVICAL SPINE WO CONTRAST 2023-12-05 14:02:23 Tereso Monreal [facility] CT HEAD WO CONTRAST 2023-12-05 14:02:23 Tereso Monreal [facility] XR CHEST 1 VW 2023-12-05 13:57:49 eTreso Monreal [facility] TROPONIN I 2023-12-05 13:16:00 Tereso Monreal [facility] COMP. METABOLIC PANEL ([id number]) 2023-12-05 13:16:00 Tereso Monreal [facility] CBC WITH DIFF 2023-12-05 13:16:00 Tereso Monreal [facility] N-TERMINAL PRO-BNP 2023-12-05 13:16:00 Tereso Monreal [facility] POCT GLUCOSE (AUTOMATED) 2023-12-05 13:15:00 Tereso Monreal [facility] COMP. METABOLIC PANEL ([id number]) 2023-01-16 16:29:00 Rocio Groves [facility] CBC WITH DIFF 2023-01-16 16:00:00 Rocio Groves [facility] TROPONIN I 2023-01-15 20:04:00 Leonardo Brown [facility] COMP. METABOLIC PANEL ([id number]) 2023-01-15 20:04:00 Leonardo Brown [facility] CBC WITH DIFF 2023-01-15 20:04:00 Leonardo Brown [facility] CT HEAD WO CONTRAST 2023-01-15 17:57:13 Mike Brown [facility] URINALYSIS 2023-01-02 17:22:00 Domi Lamar [facility] LIPASE 2023-01-02 16:51:00 [facility] COMP. METABOLIC PANEL ([id number]) 2023-01-02 16:51:00 Domi Lamar [facility] CBC WITH DIFF 2023-01-02 16:51:00 Domi Lamar [facility] Excision of Colon 1992-07-30 00:00:00 Betsy via Medical Removal of Colon [facility] Kidney Stone Removal [facility] Screening for Malignant Neoplasm of Prostate [facility] Extraction of Cataract [facility] Encounters Start Date/Time End Date/Time Encounter Type Admission Type Attending Clinicians Care Facility Care Department Encounter ID Source 2024-09-22 00:00:00 2024-09-22 00:00:00 CHARITY Montaño: [address] [place] [id number] , Ph. [facility] [id number] [facility] 2024-09-11 00:00:00 2024-09-11 00:00:00 Delfin Barragan MD: [address] [place] [phone] , Ph. [facility] [id number] [facility] 2024-08-29 00:00:00 2024-08-29 00:00:00 CHARITY Montaño: [address] [place] [phone] , Ph. [facility] - [facility] [id number] [facility] 2024-08-26 00:00:00 2024-08-26 00:00:00 Sridevi Garibay PA: [address] [place] [phone] , Ph. [facility] [id number] [facility] 2024-08-08 00:00:00 2024-08-08 00:00:00 Sridevi Garibay PA: [address] [place] [phone] , Ph. [facility] - [facility] [id number] [facility] [facility] 2024-07-25 00:00:00 2024-07-25 00:00:00 Sridevi Garibay PA: [address] [place] [phone] , Ph. [facility] - GC_BAHC_[facility] [id number] [facility] 2024-07-14 00:00:00 2024-07-14 00:00:00 CHARITY Montaño: [address] [place] [phone] , Ph. [facility] - [facility] [id number] [facility] 2024-07-11 00:00:00 2024-07-11 00:00:00 Sridevi Garibay PA: [address] [place] [phone] , Ph. [facility] - [facility] [id number] [facility] 2024-07-10 00:00:00 2024-07-10 00:00:00 Delfin Barragan MD: [address] [place] [phone] , Ph. [facility] - [facility] [id number] [facility] 2024-07-08 00:00:00 2024-07-08 00:00:00 CHARITY Montaño: [address] [place] [phone] , Ph. [facility] [id number] [facility] 2024-07-04 00:00:00 2024-07-04 00:00:00 Sridevi Garibay PA: [address] [place] [phone] , Ph. [facility] GC_BAHC_[facility] [id number] [facility] 2024-06-14 17:50:00 2024-06-14 19:14:00 Emergency ER LAUREN ME[facility]A [facility] [id number] [facility] 2024-06-14 17:50:00 2024-06-14 19:14:00 Departed Emergency Room [facility] [id number] [facility] 2024-06-12 18:14:00 2024-06-12 18:40:00 Emergency ER DIOR [facility]USH [facility] [id number] [facility] 2024-06-12 18:14:00 2024-06-12 18:40:00 Departed Emergency Room [facility] [id number] [facility] 2024-06-11 13:10:00 2024-06-11 16:45:00 Emergency ER [facility]OR [facility] [id number] [facility] 2024-06-11 13:10:00 2024-06-11 16:45:00 Departed Emergency Room [facility] [id number] [facility] 2024-06-08 10:19:00 2024-06-08 11:17:00 Emergency Kem Armstrong [facility] 1.2.840.114 350.1.13.10 4.2.7.2.686 [id number] [facility] 2024-06-05 17:51:00 2024-06-06 06:09:00 Emergency KEVON RHOADES PHILLIP [facility] ERT [id number] [facility] 2024-06-05 17:51:00 2024-06-06 06:09:00 Emergency WillardDomi Phillip [facility] 1.2.840.114 350.1.13.10 4.2.7.2.686 [id number] [id number] [facility] 2024-04-19 12:24:00 2024-04-19 15:45:00 Emergency EMPERATRIZ HIGGINS SANDRA [facility] ERT [id number] [facility] 2024-04-19 12:24:00 2024-04-19 15:45:00 Emergency Cody Mike Sandra J [facility] 1.2.840.114 350.1.13.10 4.2.7.2.686 [id number] [id number] [facility] 2023-12-05 08:07:00 2023-12-05 12:25:00 Emergency Tereso Monreal [facility] 1.2.840.114 350.1.13.10 4.2.7.2.686 [id number] [id number] [facility] 2023-10-25 14:30:00 2023-10-25 15:30:00 Initial D2Me Salli Fulminar 2.16.840. [id number] 2.16.840.1. [id number] [address] 2023-01-16 09:49:00 2023-01-16 15:42:00 Emergency X ROCIO GROVES YANELIROCIO Cruz [facility] ERT [id number] [facility] 2023-01-16 09:49:00 2023-01-16 15:42:00 Emergency Rocio [facility] 1.2.840.114 350.1.13.10 4.2.7.2.686 [id number] [facility] 2023-01-15 09:35:00 2023-01-15 19:31:00 Emergency X LEONARDO BROWN [facility] ERT [id number] [facility] 2023-01-15 09:35:00 2023-01-15 19:31:00 Emergency Leonardo Brown [facility] 1.2.840.114 350.1.13.10 4.2.7.2.686 [id number] [id number] [facility] 2023-01-02 10:42:00 2023-01-02 14:44:00 Emergency X DOMI LAMAR [facility] ERT [id number] [facility] 2023-01-02 10:42:00 2023-01-02 14:44:00 Emergency Domi Lamar [facility] 1.2.840.114 350.1.13.10 4.2.7.2.686 [id number] [id number] [facility] 2021-01-04 03:27:00 2021-01-04 03:27:00 Outpatient Miller_S_AH VFP VFP [id number] [facility] 2020-11-10 06:52:00 2020-11-10 06:52:00 Outpatient Ajibade_O_A H VFP VFP [id number] [facility] 2020-10-27 01:51:00 2020-10-27 01:51:00 Outpatient Ajibade_O_A H VFP VFP [id number] [facility] 2020-10-27 00:00:00 2020-10-27 00:00:00 Arleth Carrasquillo, SENIOR POLICY ANALYST: [address], [place] [address], [place] [address] , Ph. [facility] - VM_HOU_V@_ [place] [employer] [id number] [facility] 2020-10-21 08:40:00 2020-10-21 08:40:00 Outpatient Ajibade_O_A H VFP VFP [id number] [facility] 2020-09-23 04:30:00 2020-09-23 04:30:00 Outpatient Ajibade_O_A H VFP VFP [id number] [facility] 2020-09-23 00:00:00 2020-09-23 00:00:00 Arleth Carrasquillo, SENIOR POLICY ANALYST: [address] [facility], [place] [address], [place] [address] , Ph. [facility] - VM_HOU_V@_ [place] [employer] [id number] [facility] 2020-03-25 04:36:00 2020-03-25 04:36:00 Outpatient Ajibade_O_A H VFP VFP [id number] [facility] 2020-03-25 04:36:00 2020-03-25 04:36:00 Outpatient Ajibade_O_A H VFP VFP [id number] [facility] 2020-03-25 04:36:00 2020-03-25 04:36:00 Outpatient Ajibade_O_A H VFP VFP [id number] [facility] 2020-03-25 04:36:00 2020-03-25 04:36:00 Outpatient Ajibade_O_A H VFP VFP [id number] [facility] 2019-09-17 07:13:00 2019-09-17 07:13:00 Outpatient Ige-Odunuga _J_AH VFP VFP [id number] [facility] 2019-09-17 07:13:00 2019-09-17 07:13:00 Outpatient Ige-Odunuga _J_AH VFP VFP [id number] [facility] 2019-07-03 10:34:00 2019-07-08 13:25:00 Inpatient 1 Ivan Contreras Shakeel [facility] PSY [id number] [facility] Results Test Description Test Time Test [...] ordislocation. No soft tissue abnormality. [facility] [id number] 18:18:51* Test Item Value Reference Range Interpretation Comme nts NT-proBNP (test code = 53583-0) 960 pg/mL <=125 ROMINA (test code = ROMINA) Result Indeterminate-Consid er causes of NT-proBNP elevation other than Heart failure such as acute coronary syndrome, pulmonary embolism, pulmonary hypertension, sepsis, stroke, and renal dysfunction. Lab Interpretation (test code = 93751-2) Abnormal [facility] METABOLIC PANEL (16207)2024-04-19 18:09:50* Test Item Value Reference Range Interpretation Comme nts NA (test code = 5347620873) 135 mmol/L 135-145 K (test code = 2470039625) 5.4 mmol/L 3.5-5.0 H CL (test code = 7818781192) 107 mmol/L 98-108 CO2 TOTAL (test code = 2948780596) 22 mmol/L 23-31 L AGAP (test code = 2113728328) 6 2-16 BUN (test code = 9634508964) 47 mg/dL 7-23 H GLUCOSE (test code = 8762588972) 135 mg/dL 70-110 H CREATININE (test code = 2160-0) 2.36 mg/dL 0.60-1.25 H TOTAL BILI (test code = 6606829093) 0.6 mg/dL 0.1-1.1 CALCIUM (test code = 0366323972) 9.1 mg/dL 8.6-10.6 T PROTEIN (test code = 1027566660) 6.7 g/dL 6.3-8.2 ALBUMIN (test code = 9939346403) 3.8 g/dL 3.5-5.0 ALK PHOS (test code = 4663618118) 56 U/L 34-122 ALTv (test code = 1742-6) 21 U/L 5-50 AST(SGOT) (test code = 5455402460) 31 U/L 13-40 eGFR (test code = 84873-7) 27.7 mL/min/1.73m2 CKD-EPI eGFR (2020). Assuming creatinine has been stable day-to-day for at least three months, the eGFR indicates Category G4 (15 - 29 mL/min/1.73 m2) Lab Interpretation (test code = 95288-6) Abnormal [facility]24-[facility]21 18:09:30* Test Item Value Reference Range Interpretation Comme nts LIPASE (test code = 7302283277) 210 U/L 0-220 Lab Interpretation (test cod e = 02339-3) Normal [facility] WITH [id number] 18:01:10* Test Item Value Reference Range Interpretation [...] 32.0 g/dL 31.2-35.0 RDW-SD (test code = 87809-9) 45.7 fL 38.5-51.6 RDW-CV (test code = 788-0) 13.4 % 12.1-15.4 PLT (test code = 777-3) 145 150-328 L MPV (test code = 86020-9) 11.9 fL 9.8-13.0 NRBC/100 WBC (test code = 6699071441) 0.0 0.0-10.0 NRBC x10^3 (test code = 0190749289) See_Comment [Automated messa ge] The system which generated this result transmitted reference range: 10*3/?L. The reference range was not used to interpret this result as normal/abnormal. GRAN MAT (NEUT) % (test code = 770-8) 70.3 % IMM GRAN % (test code = 7115292183) 0.30 % LYMPH % (test code = 736-9) 18.8 % MONO % (test code = 5905-5) 9.3 % EOS % (test code = 713-8) 0.8 % BASO % (test code = 706-2) 0.5 % GRAN MAT x10^3(ANC) (test code = 6451591494) 5.27 10*3/uL 1.99-6.95 IMM GRAN x10^3 (test code = 6130235061) 0.00-0.06 LYMPH x10^3 (test code = 731-0) 1.41 10*3/uL 1.09-3.23 MONO x10^3 (test code = 742-7) 0.70 10*3/uL 0.36-1.02 EOS x10^3 (test code = 711-2) 0.06 10*3/uL 0.06-0.53 BASO x10^3 (test code = 704-7) 0.04 10*3/uL 0.01-0.09 Lab Interpretation (test code = 08237-1) Abnormal [facility] WO [id number] 14:22:10EXAM: CT HEAD WO CONTRAST, CT CERVICAL [...] lung apices and thyroid gland are unremarkable. [facility]CT CERVICAL SPINE WO [id number] 14:22:10EXAM: CT HEAD WO CONTRAST, CT CERVICAL [...] visualized lung apices and thyroid gland are unremarkable.[facility] ResourcesTroponin [id number] 14:09:22* Test Item Value Reference Range Interpretation Comme nts TROPONIN I (test code = 3063035703) 0.010 ng/mL <=0.034 ROMINA (test code = [...] of biotin. Lab Interpretation (test code = 70327-6) Normal [facility] ResourcesXR CHEST 1 [id number] 14:08:28HISTORY: Syncope. TECHNIQUE: Portable AP view of the chest is obtained. No prior chest studyavailable for comparison. FINDINGS: Elevated left hemidiaphragm noted with minimal chronic changes offibrosis in the left lung base. Atherosclerosis with calcification in theaortic arch noted. No acute pneumonia. No pneumothorax or pleural effusionor pulmonary congestion detected. Cardiac size is within normal limits. CONCLUSIONS: No signs of acute cardiopulmonary disease.[facility] ResourcesN-Terminal Alv-[id number] 14:06:45* Test Item Value Reference Range Interpretation Comme [facility] NT-proBNP (test code = 38190-4) 726 pg/mL <=125 ROMINA (test code = ROMINA) Result Indeterminate-Consid er causes of NT-proBNP elevation other than Heart failure such as acute coronary syndrome, pulmonary embolism, pulmonary hypertension, sepsis, stroke, and renal dysfunction. Lab Interpretation (test code = 49823-1) Abnormal [facility] Resources[facility]. Metabolic Panel (53907)2023-12-05 13:58:03* Test Item Value Reference Range Interpretation Comme nts NA (test code = 1443913263) 134 mmol/L 135-145 L K (test code = 6832065487) 5.4 mmol/L 3.5-5.0 H CL (test code = 8449047328) 106 mmol/L 98-108 CO2 TOTAL (test code = 1512630096) 19 mmol/L 23-31 L AGAP (test code = 8484602712) 9 2-16 BUN (test code = 4342445455) 42 mg/dL 7-23 H GLUCOSE (test code = 3138848167) 106 mg/dL 70-110 CREATININE (test code = 2160-0) 2.36 mg/dL 0.60-1.25 H TOTAL BILI (test code = 2444164950) 0.7 mg/dL 0.1-1.1 CALCIUM (test code = 0556791112) 8.9 mg/dL 8.6-10.6 T PROTEIN (test code = 6719744821) 6.9 g/dL 6.3-8.2 ALBUMIN (test code = 2971269348) 4.2 g/dL 3.5-5.0 ALK PHOS (test code = 5789077485) 81 U/L 34-122 ALTv (test code = 1742-6) 24 U/L 5-50 AST(SGOT) (test code = 9488819683) 27 U/L 13-40 eGFR (test code = 65554-6) 27.7 mL/min/1.73m2 CKD-EPI eGFR (2020). Assuming creatinine has been stable day-to-day for at least three months, the eGFR indicates Category G4 (15 - 29 mL/min/1.73 m2) Lab Interpretation (test code = 71515-9) Abnormal [facility] with [id number] 13:51:59* Test Item Value Reference Range Interpretation [...] 32.1 g/dL 31.2-35.0 RDW-SD (test code = 82375-5) 47.1 fL 38.5-51.6 RDW-CV (test code = 788-0) 14.3 % 12.1-15.4 PLT (test code = 777-3) 174 150-328 MPV (test code = 32108-3) 11.7 fL 9.8-13.0 NRBC/100 WBC (test code = 9455194571) 0.0 0.0-10.0 NRBC x10^3 (test code = 0798437099) See_Comment [Automated me ssage] The system which generated this result transmitted reference range: 10*3/?L. The reference range was not used to interpret this result as normal/abnormal. GRAN MAT (NEUT) % (test code = 770-8) 61.5 % IMM GRAN % (test code = 0925228697) 0.40 % LYMPH % (test code = 736-9) 28.6 % MONO % (test code = 5905-5) 7.9 % EOS % (test code = 713-8) 0.9 % BASO % (test code = 706-2) 0.7 % GRAN MAT x10^3(ANC) (test code = 6109721102) 4.25 10*3/uL 1.99-6.95 IMM GRAN x10^3 (test code = 3867065982) 0.03 10*3/uL 0.00-0.06 LYMPH x10^3 (test code = 731-0) 1.98 10*3/uL 1.09-3.23 MONO x10^3 (test code = 742-7) 0.55 10*3/uL 0.36-1.02 EOS x10^3 (test code = 711-2) 0.06 10*3/uL 0.06-0.53 BASO x10^3 (test code = 704-7) 0.05 10*3/uL 0.01-0.09 [facility] GLUCOSE (AUTOMATED)2023-12-05 13:17:57* Test Item Value Reference Range Interpretation Comme nts POCT GLU (test code = 5815938041) 89 mg/dL 70-110 Lab Interpretation (test cod e = 73149-1) Normal [facility] ResourcesTROP[facility]IN [id number] 20:33:31* Test Item Value Reference Range Interpretation Comme nts TROPONIN I (test code = 9303416960) 0.007 ng/mL <=0.034 ROMINA (test code = [...] of biotin. Lab Interpretation (test code = 52394-0) Normal [facility]. METABOLIC PANEL (16063)2023-01-15 20:22:53* Test Item Value Reference Range Interpretation Comme nts NA (test code = 3327560801) 135 mmol/L 135-145 K (test code = 2942134722) 5.4 mmol/L 3.5-5.0 H CL (test code = 7835577978) 106 mmol/L 98-108 CO2 TOTAL (test code = 7408251205) 22 mmol/L 23-31 L AGAP (test code = 9568334495) 7 2-16 BUN (test code = 9889398888) 23 mg/dL 7-23 GLUCOSE (test code = 7629394604) 135 mg/dL 70-110 H CREATININE (test code = 2134638124) 2.05 mg/dL 0.60-1.25 H TOTAL BILI (test code = 0051061916) 0.5 mg/dL 0.1-1.1 CALCIUM (test code = 6277668680) 8.6 mg/dL 8.6-10.6 T PROTEIN (test code = 3782626655) 6.5 g/dL 6.3-8.2 ALBUMIN (test code = 5451020516) 3.6 g/dL 3.5-5.0 ALK PHOS (test code = 6851399213) 74 U/L 34-122 ALTv (test code = 1742-6) 17 U/L 5-50 AST(SGOT) (test code = 5764534935) 24 U/L 13-40 eGFR (test code = 3330927134) 31.7 mL/min/1.73m2 ROMINA (test code = ROMINA) [...] imaging tests). Lab Interpretation (test code = 77041-0) Abnormal [facility] WITH [id number] 20:13:15* Test Item Value Reference Range Interpretation Comme nts WBC (test code = 6690-2) 6.78 See_Comment [Automated messa ge] The system which generated this result transmitted reference range: 4.20 - 10.70 10*3/?L. The reference range was not used to interpret this result as normal/abnormal. RBC (test code = 789-8) 4.48 See_Comment [Automated YuMea ge] The system which generated this result [...] 32.8 g/dL 31.2-35.0 RDW-SD (test code = 34337-0) 43.1 fL 38.5-51.6 RDW-CV (test code = 788-0) 13.3 % 12.1-15.4 PLT (test code = 777-3) 239 See_Comment [Automated YuMea ge] The system which generated this result transmitted reference range: 150 - 328 10*3/?L. The reference range was not used to interpret this result as normal/abnormal. MPV (test code = 39551-0) 11.3 fL 9.8-13.0 NRBC/100 WBC (test code = 8994439937) 0.0 See_Comment [Automated Central Test ssage] The system which generated this result transmitted reference range: 0.0 - 10.0 /100 WBCs. The reference range was not used to interpret this result as normal/abnormal. NRBC x10^3 (test code = 1874128346) See_Comment [Automated Central Test ssage] The system which generated this result transmitted reference range: 10*3/?L. The reference range was not used to interpret this result as normal/abnormal. GRAN MAT (NEUT) % (test code = 770-8) 66.6 % IMM GRAN % (test code = 2706473154) 0.40 % LYMPH % (test code = 736-9) 25.7 % MONO % (test code = 5905-5) 5.9 % EOS % (test code = 713-8) 1.0 % BASO % (test code = 706-2) 0.4 % GRAN MAT x10^3(ANC) (test code = 6840777165) 4.51 10*3/uL 1.99-6.95 IMM GRAN x10^3 (test code = 7676135450) 0.03 10*3/uL 0.00-0.06 LYMPH x10^3 (test code = 731-0) 1.74 10*3/uL 1.09-3.23 MONO x10^3 (test code = 742-7) 0.40 10*3/uL 0.36-1.02 EOS x10^3 (test code = 711-2) 0.07 10*3/uL 0.06-0.53 BASO x10^3 (test code = 704-7) 0.03 10*3/uL 0.01-0.09 [facility] METABOLIC PANEL (08778)2023-01-02 18:18:34* Test Item Value Reference Range Interpretation Comme nts NA (test code = 7759292363) 136 mmol/L 135-145 K (test code = 1746294958) 4.7 mmol/L 3.5-5.0 CL (test code = 0645309234) 103 mmol/L 98-108 CO2 TOTAL (test code = 5026137727) 18 mmol/L 23-31 L AGAP (test code = 0350493923) 15 2-16 BUN (test code = 7697339135) 40 mg/dL 7-23 H GLUCOSE (test code = 5113482169) 154 mg/dL 70-110 H CREATININE (test code = 1737735140) 2.46 mg/dL 0.60-1.25 H TOTAL BILI (test code = 5501575686) 0.7 mg/dL 0.1-1.1 CALCIUM (test code = 6311659086) 8.6 mg/dL 8.6-10.6 T PROTEIN (test code = 7286147542) 6.3 g/dL 6.3-8.2 ALBUMIN (test code = 8683469194) 3.7 g/dL 3.5-5.0 ALK PHOS (test code = 9992507568) 77 U/L 34-122 ALTv (test code = 1742-6) 15 U/L 5-50 AST(SGOT) (test code = 2943694290) 23 U/L 13-40 eGFR (test code = 1184903205) 25.7 mL/min/1.73m2 ROMINA (test code = ROMINA) [...] imaging tests). Lab Interpretation (test code = 77773-6) Abnormal [facility]2023-06-06 18:18:34* Test Item Value Reference Range Interpretation Comme nts LIPASE (test code = 6045436751) 159 U/L 0-220 Lab Interpretation (test cod e = 46131-7) Normal [facility] WITH [id number] 18:00:33* Test Item Value Reference Range Interpretation [...] 33.7 g/dL 31.2-35.0 RDW-SD (test code = 30439-0) 43.6 fL 38.5-51.6 RDW-CV (test code = 788-0) 13.3 % 12.1-15.4 PLT (test code = 777-3) 162 See_Comment [Automated YuMea ge] The system which generated this result transmitted reference range: 150 - 328 10*3/?L. The reference range was not used to interpret this result as normal/abnormal. MPV (test code = 89255-5) 12.7 fL 9.8-13.0 NRBC/100 WBC (test code = 1214359551) 0.0 See_Comment [Automated Central Test ssage] The system which generated this result transmitted reference range: 0.0 - 10.0 /100 WBCs. The reference range was not used to interpret this result as normal/abnormal. NRBC x10^3 (test code = 0116415695) See_Comment [Automated YuMea ge] The system which generated this result transmitted reference range: 10*3/?L. The reference range was not used to interpret this result as normal/abnormal. GRAN MAT (NEUT) % (test code = 770-8) 75.0 % IMM GRAN % (test code = 6999439144) 0.60 % LYMPH % (test code = 736-9) 17.4 % MONO % (test code = 5905-5) 6.0 % EOS % (test code = 713-8) 0.6 % BASO % (test code = 706-2) 0.4 % GRAN MAT x10^3(ANC) (test code = 2630586774) 5.35 10*3/uL 1.99-6.95 IMM GRAN x10^3 (test code = 7169300188) 0.04 10*3/uL 0.00-0.06 LYMPH x10^3 (test code = 731-0) 1.24 10*3/uL 1.09-3.23 MONO x10^3 (test code = 742-7) 0.43 10*3/uL 0.36-1.02 EOS x10^3 (test code = 711-2) 0.04 10*3/uL 0.06-0.53 L BASO x10^3 (test code = 704-7) 0.03 10*3/uL 0.01-0.09 Lab Interpretation (test code = 36930-7) Abnormal [facility] [id number] 10:41:53* Test Item Value Reference Range Interpretation Comme nts Glucose POC (test code = Glucose POC) 140 mg/dL 70-115 H Notify RN or MDIf you consider your patient critically ill, the Sj-Accu Check Infrom II meter should not be used for Glucose determination. Draw a venous Glucose and send to the main Lab for analysis. POC [id number] 07:11:51* Test Item Value Reference Range Interpretation Comme nts Glucose POC (test code = Glucose POC) 118 mg/dL 70-115 H Notify RN or MDIf you consider your patient critically ill, the Sj-Accu Check Infrom II meter should not be used for Glucose determination. Draw a venous Glucose and send to the main Lab for analysis. POC [id number] 19:44:19* Test Item Value Reference Range Interpretation Comme nts Glucose POC (test code = Glucose POC) 151 mg/dL 70-115 H Notify RN or MDIf you consider your patient critically ill, the Sj-Accu Check Infrom II meter should not be used for Glucose determination. Draw a venous Glucose and send to the main Lab for analysis. POC [id number] 15:05:21* Test Item Value Reference Range Interpretation Comme nts Glucose POC (test code = Glucose POC) 119 mg/dL 70-115 H Notify RN or MDIf you consider your patient critically ill, the Sj-Accu Check Infrom II meter should not be used for Glucose determination. Draw a venous Glucose and send to the main Lab for analysis. POC [id number] 11:16:17* Test Item Value Reference Range Interpretation Comme nts Glucose POC (test code = Glucose POC) 132 mg/dL 70-115 H Notify RN or MDIf you consider your patient critically ill, the Sj-Accu Check Infrom II meter should not be used for Glucose determination. Draw a venous Glucose and send to the main Lab for analysis. POC [id number] 06:17:22* Test Item Value Reference Range Interpretation Comme nts Glucose POC (test code = Glucose POC) 121 mg/dL 70-115 H Notify RN or MDIf you consider your patient critically ill, the Sj-Accu Check Infrom II meter should not be used for Glucose determination. Draw a venous Glucose and send to the main Lab for analysis. POC [id number] 20:10:13* Test Item Value Reference Range Interpretation Comme nts Glucose POC (test code = Glucose POC) 133 mg/dL 70-115 H If you consi eve your patient critically ill, the Sj-Accu Check Infrom II meter should not be used for Glucose determination. Draw a venous Glucose and send to the main Lab for analysis. POC [id number] 06:13:49* Test Item Value Reference Range Interpretation Comme nts Glucose POC (test code = Glucose POC) 116 mg/dL 70-115 H If you consi eve your patient critically ill, the Sj-Accu Check Infrom II meter should not be used for Glucose determination. Draw a venous Glucose and send to the main Lab for analysis. POC [id number] 19:55:46* Test Item Value Reference Range Interpretation Comme nts Glucose POC (test code = Glucose POC) 121 mg/dL 70-115 H If you consi eve your patient critically ill, the Sj-Accu Check Infrom II meter should not be used for Glucose determination. Draw a venous Glucose and send to the main Lab for analysis. POC [id number] 16:21:40* Test Item Value Reference Range Interpretation Comme nts Glucose POC (test code = Glucose POC) 126 mg/dL 70-115 H Notify RN or MDIf you consider your patient critically ill, the Sj-Accu Check Infrom II meter should not be used for Glucose determination. Draw a venous Glucose and send to the main Lab for analysis. POC [id number] 12:10:14* Test Item Value Reference Range Interpretation Comme nts Glucose POC (test code = Glucose POC) 138 mg/dL 70-115 H Notify RN or MDIf you consider your patient critically ill, the Sj-Accu Check Infrom II meter should not be used for Glucose determination. Draw a venous Glucose and send to the main Lab for analysis. POC [id number] 06:38:10* Test Item Value Reference Range Interpretation Comme nts Glucose POC (test code = Glucose POC) 112 mg/dL 70-115 If you consi eve your patient critically ill, the Sj-Accu Check Infrom II meter should not be used for Glucose determination. Draw a venous Glucose and send to the main Lab for analysis. POC [id number] 19:46:42* Test Item Value Reference Range Interpretation Comme nts Glucose POC (test code = Glucose POC) 107 mg/dL 70-115 If you consi eve your patient critically ill, the Sj-Accu Check Infrom II meter should not be used for Glucose determination. Draw a venous Glucose and send to the main Lab for analysis. RPR [id number] 15:31:56* Test Item Value Reference Range Interpretation [...] code = Expiration Dt) 05-29-20 N POC [id number] 15:06:05* Test Item Value Reference Range Interpretation Comme nts Glucose POC (test code = Glucose POC) 118 mg/dL 70-115 H Notify RN or MDIf you consider your patient critically ill, the Sj-Accu Check Infrom II meter should not be used for Glucose determination. Draw a venous Glucose and send to the main Lab for analysis. POC [id number] 11:12:35* Test Item Value Reference Range Interpretation Comme nts Glucose POC (test code = Glucose POC) 146 mg/dL 70-115 H If you consi eve your patient critically ill, the Sj-Accu Check Infrom II meter should not be used for Glucose determination. Draw a venous Glucose and send to the main Lab for analysis. POC [id number] 07:42:11* Test Item Value Reference Range Interpretation Comme nts Glucose POC (test code = Glucose POC) 122 mg/dL 70-115 H If you consi eve your patient critically ill, the Sj-Accu Check Infrom II meter should not be used for Glucose determination. Draw a venous Glucose and send to the main Lab for analysis. POC [id number] 19:17:06* Test Item Value Reference Range Interpretation Comme nts Glucose POC (test code = Glucose POC) 114 mg/dL 70-115 If you consi eve your patient critically ill, the Sj-Accu Check Infrom II meter should not be used for Glucose determination. Draw a venous Glucose and send to the main Lab for analysis. Urinalysis [id number] 12:27:32* Test Item Value Reference Range Interpretation Comme nts UA WBC (test code = UA WBC) 0-5 0-5 UA RBC (test code = UA RBC) 0-5 0-5 UA Squam Epithelial (test co de = UA Squam Epithelial) 0-5 Comprehensive Metabolic [id number] 12:12:02* Test Item Value Reference Range Interpretation [...] A/G Ratio) 1.6 ratio N Comprehensive Metabolic [id number] 12:12:02* Test Item Value Reference Range Interpretation [...] is not provided, and the patient is -Afghan, multiply by 1.212. If sex is not [...] the National Kidney Foundation, http://nkdep.nih.gov Comprehensive Metabolic [id number] 12:12:02* Test Item Value Reference Range Interpretation [...] is not provided, and the patient is -Afghan, multiply by 1.212. If sex is not [...] is not provided, and the patient is -Afghan, multiply by 1.212. If sex is not [...] the National Kidney Foundation, http://nkdep.nih.gov Urine Drug [id number] 12:01:40* Test Item Value Reference Range Interpretation [...] test if desired. Complete Blood Count with [id number] 11:38:14* Test Item Value Reference Range Interpretation [...] code = IPF) 0 % N Automated [id number] 11:38:14* Test Item Value Reference Range Interpretation Comme nts Neutro Auto (test code = Joshua tro Auto) 76.4 % 36.0-70.0 H Lymph Auto (test code = Lymph Auto) 15.8 % 12.0-44.0 [place] Auto (test code = [place] Auto) 6.7 % 0.0-11.0 Eos, Auto (test code = Eos, Auto) 0.3 % 0.0-7.0 Basophil Auto (test code = B asophil Auto) 0.4 % 0.0-2.0 Neutro Absolute (test code = Neutro Absolute) 5.3 x10 1.6-7.4 Lymph Absolute (test code = Lymph Absolute) 1.09 x10 .50-4.60 [place] Absolute (test code = M caitlin Absolute) .46 x10 .00-1.20 Eos Absolute (test code = Eo s Absolute) 0.02 x10 0.00-0.74 Baso Absolute (test code = B aso Absolute) 0.03 x10 0.00-0.21 IG [id number] 11:38:14* Test Item Value Reference Range Interpretation Comme nts IG (test code = IG) 0.4 % 0.0-5.0 IG Abs (test code = IG Abs) 0 x10 N Urinalysis with Culture, if [id number] 11:37:19* Test Item Value Reference Range Interpretation [...] cre ated by rule GL_SJM_UA_MICRO_IN D POC [id number] 11:07:06* Test Item Value Reference Range Interpretation Comme nts Glucose POC (test code = Glucose POC) 123 mg/dL 70-115 H If you consi eve your patient critically ill, the Sj-Accu Check Infrom II meter should not be used for Glucose determination. Draw a venous Glucose and send to the main Lab for analysis. 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 NO PHYSICIAN primary care physician Active . NO PHYSICIAN Primary Care Physician Active DIOR RUSH MD Emergency Provider Active LAUREN MEHTA MD Emergency Provider Active BARBARA MCCALL Next of Kin Active BARBARA MCCALL Emergency Contact Active [facility] [id number] 18:50:23 Patient Care Team <thead> Team Status: Active Member Role Status Dates . NO PHYSICIAN primary care physician Active . 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 Pt refused taxi ride to [place]. Pt stated he would call his electronic publishing specialist. Pt provided ER phone to make phone calls. A [facility]mn2921-46-82 10:12:54 Barbara Mccall is a 78 year old male arrive via [facility] from the [facility], called because had nothing to eat for 2 days, wants a ride to [place] [employer], pt alert in no distress, Bgl 118, MOUNTER Kristen Spencer [facility] CenterMvonms1218-15-83 06:06:48 Awake, alert oriented X4, respiratory even [...] to lobby via wheelchair by ED RN. manager services consulted for possible options for shelters. A Kim [facility] CenterQevssa6815-94-33 23:01:00 Patient discharge holding; pt has no place to be discharged to. [facility]2024-11-07 17:39:25 Brought in by [facility] for abdominal pain and diarrhea x1 week. Patient was at [facility] this AM but left AMA. Now here. HX: colon ressection, HTN. 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 Episodes started a week ago. Patient was seen at [place] a week ago. Patient was admitted. CT and labs were done during his stay at [place]. Left AMA today and came to this [...] GLUCOSE, BUN, CREATININE, CA) HEPATIC FUNCTION PANEL (16726) (ALB,T.PRO,BILI T,BU/BC,ALT,AST,ALK PHOS) LIPASE URINALYSIS No orders of the defined types were placed in this encounter. First Provider Eval: ED Events Date/Time Event User Comments 06/05/241747 Medical Screening Begins DOMI LAMAR -- 06/05/241747 First Provider Evaluation DOMI LAMAR -- ED COURSE ED Course as of 06/05/24 2213 Amy Jun 05, [id number] Care transferred to Dr. Bunch. See his notes for further details of this encounter. [CH] 1746 Patient is a 78yo M that presents [...] and notes. Details: Reviewed admission notes from [facility] Labs: ordered. Radiology: ordered. Flowsheet Documentation: Scoring [...] Electronically signed by: Domi Lamar FNP 06/05/241950 MOUNTER Associated attestation - Kevon Bunch DO - 06/05/2024 10:20 PM LENS MOUNTER I was available for consultation at all times during the patient encounter and present in the Emergency Department providing general supervision. However, I did not see or evaluate the patient. Patient seen and evaluated by GAVIN. [facility] [id number] 15:43:40 Pt given printed and verbal discharge [...] gait, in no apparent distress, Daya Garcia [facility] CenterPmfnjt2320-88-91 12:24:00 [facility] states: "Patient states he felt dizzy when he stood up. BGL of 175 mg/dL. Denies falling, he said he stood up, felt dizzy, and sat back down." Raven Briggs [facility] CenterStzeux5998-04-85 12:22:00 Associated Order(s): EKG-12 Lead ROUTINE ONCE Pre-Procedure Diagnose(s): Lightheaded Post-Procedure Diagnose(s): Lightheaded [facility] Emergency Department Note Patient Name: Barbara Mccall Date of : 1945 78 year old male Treatment Room: TX6/TX6 Primary Care Physician: Daniel Diego Patient Escorted by: Self [9] Mode of Arrival: EMS - [facility] ([place]) [43] EMS Treatment Prior to ED Arrival: PHARMACY CLINICAL COORDINATOR treatment: Unable to assess PHARMACY CLINICAL COORDINATOR treatment comments: right 20g by florentino ems [...] 0.01 - 0.09 10*3/uL COMP. METABOLIC PANEL (51688) - Abnormal NA 135 135 - 145 [...] VW CBC WITH DIFF COMP. METABOLIC PANEL (38610) TROPONIN I N-TERMINAL PRO-BNP LIPASE URINALYSIS Orders [...] ED Physician in the absence of a capper machine operator: yes Interpretation: Interpretation: normal Rate: ECG rate: 67 ECG rate assessment: normal Rhythm: Rhythm: sinus rhythm Ectopy: Ectopy: none QRS: QRS axis: Normal QRS intervals: Normal QRS conduction: RBBB ST segments: ST segments: Normal T waves: T waves: normal Q waves: Abnormal Q-waves: not present MDM: Medical Decision Making The patient presents with EMS from the [facility] room he is staying at complaining of [...] signed by: Emperatriz Mcfadden DO 04/19/24 1531 [facility] [id number] 12:09:45 PT D/C home. GCS15, VS stable, [...] of medication, wallet and cane. Iva Sanchez RNPomerene HospitalDuclka9544-42-78 08:05:40 Patient arrived by [facility] for syncope. Per EMS, patient states that he hasn't eaten in a week. BGL 108. Patient states that he has has been dizzy spells and woke up on the floor this morning. Patient states that the dizziness has been ongoing for years. Miah Long [facility] - [id number] 08:03:00 Associated Order(s): EKG-12 Lead ROUTINE ONCE Pre-Procedure Diagnose(s): Syncope, unspecified syncope type Post-Procedure Diagnose(s): Syncope, unspecified syncope type [facility] Emergency Department Note Patient Name: Barbara Mccall Date of : 1945 78 year old male Treatment Room: [place] [address] Primary Care Physician: Daniel Diego Patient Escorted by: Self [9] Mode of Arrival: EMS - [facility] ([place]) [43] EMS Treatment Prior to ED Arrival: PHARMACY CLINICAL COORDINATOR treatment: None Travel and Exposure Screening: Symptoms [...] bulbs. Preliminary Report Dictated by Resident: Angus Apariico I, Compa Cook MD., have reviewed this [...] Lab Results: Lab Results COMP. METABOLIC PANEL (12008) - Abnormal Result Value Ref Range NA [...] CONTRAST Cbc with Diff Comp. Metabolic Panel (11791) Troponin I N-Terminal Pro-Bnp Urinalysis POCT GLUCOSE [...] ED Physician in the absence of a capper machine operator: yes Previous ECG: Previous ECG: Unavailable Interpretation: [...] acute issue. Low risk (score 0) by trinidadian syncope risk score. Stavle for discharge with [...] signed by: Tereso Monreal MD 12/05/23 1136 [facility]
[2024-10-12 23:31] LABS: Absolute Lymphocytes (CBC) 0.3 K/uL (0.7-4.9); Absolute Monocytes 0.6 K/uL (0.1-1.3); Absolute Neutrophil 4.2 K/uL (1.8-8.0)
[2024-10-12 23:33] LABS: PT Prothrombin Time 12.7 SECONDS (10-13.0); Protime INR 1.12
[2024-10-12] MEDS ORDERED: ONDANSETRON 4 MG/2 ML VIAL ONE (23:36)
[2024-10-12] MEDS ORDERED: MORPHINE 4 MG/ML SYR ONE (23:36)
[2024-10-12 23:45] LABS: Influenza A Ag Negative; Influenza B Ag Negative; SARS-CoV-2 Antigen Rapid Res Negative (Negative)
[2024-10-12 23:46] LABS: Albumin 2.2 g/dL (3.4-5.0); Albumin/Globulin Ratio 0.6 (1.1-1.8); Anion Gap 11.5 mEq/L (5.0-15.0); Bilirubin Direct 0.2 mg/dL (0-0.2); Bilirubin Indirect, Calculated 0.4 mg/dL (0.2-0.8); Bilirubin Total 0.6 mg/dL (0.2-1.0); Magnesium 1.9 mg/dL (1.6-2.4); Potassium 3.5 mEq/L (3.5-5.1); Protein, Total 6.2 g/dL (6.4-8.2); Troponin High Sensitivity 21.2 pg/mL (<58.9)
[2024-10-12 23:47] LABS: Basophils % 0.4 % (0-1.3); Eosinophils % 0.3 % (0-4.4); Hematocrit 28.9 % (39.6-49.0); Hemoglobin 9.5 g/dL (13.6-17.9); Lymphocytes % 6.4 % (15.3-44.8); MCH 28.5 pg (27.0-35.0); MCV 86.1 fL (80-100); MPV 8.1 fL (7.6-11.3); Neutrophils % 81.9 % (41.7-73.7); Nucleated Red Blood Cells % 0.1 % (0-0); Platelets 193 thou/uL (152-406); RBC Red Blood Cell Count 3.35 M/uL (4.33-5.43)
--- NOTE | 2024-10-13 03:21 | ER ---
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 in the last 14 days. Ebola rg5 Screen: Patient negative for fever greater than or equal to 101.5 degrees Fahrenheit, and additional compatible Ebola Virus Disease symptoms Patient denies exposure to infectious person. Patient denies travel to an Ebola-affected area in the 21 days before illness onset. Initial Sepsis Screen: Does the patient meet any 2 criteria? No. Patient's initial sepsis screen is negative. Does the patient have a suspected source of infection? No. Patient's initial sepsis screen is negative. Risk Assessment: Do you want to hurt yourself or someone else? Patient reports no desire to harm self or others. Onset of symptoms was October 12, 2024. Care prior to arrival: Medication(s) given: ASA, x 4, IV initiated. 20 GA, in the left wrist, Glucose check: 100 Oxygen administered. via nasal cannula, 2L. 22:53 Method Of Arrival: EMS: [facility] rg5 22:53 Acuity: CHAYITO 3 rg5 Triage Assessment: 22:55 General: Appears in no apparent distress. comfortable, Behavior is calm, cooperative, rg5 appropriate for age. Pain: Complains of pain in chest Quality of pain is described as aching, Pain began 1 hour ago. EENT: No deficits noted. Neuro: Level of Consciousness is awake, alert, obeys commands, Oriented to person, place, time, situation. Cardiovascular: Reports chest pain, shortness of breath, Patient's skin is warm and dry. Rhythm is sinus rhythm with unifocal PVCs. Historical: - Allergies: 22:55 fenofibrate nanocrystallized; rg5 22:55 insulin degludec; rg5 - PMHx: 22:55 Anxiety; Diabetes - IDDM; Diverticulitis; HLD; Hypertension; rg5 - PSHx: 22:55 colon sx; rg5 - Immunization history:: Adult Immunizations up to date. - Infectious Disease History:: Denies. - Social history:: Smoking status: unknown. Screenin:00 [facility] ED Fall Risk Assessment (Adult) History of falling in the last 3 months, rg5 including since admission Yes- physiologic fall (2 pts) Confusion or Disorientation No (0 pts) Intoxicated or Sedated No (0 pts) Impaired Gait Yes (1 pt) Mobility Assist Device Used Yes (1 pt) Altered Elimination Yes (1 pt) Score/Fall Risk Level 3 or more points = High Risk Oriented to surroundings, Maintained a safe environment, Educated pt \T\ family on fall prevention, incl call for assistance when getting out of bed, Provided non-skid footwear, Hourly rounding (assess needs \T\ fall precautionary measures) done, Used ambulatory aids as needed (educated on \T\ assisted with). Abuse screen: Denies threats or abuse. Nutritional screening: No deficits noted. Tuberculosis screening: No symptoms or risk factors identified. Assessment: 23:00 Pain: Complains of pain in chest Pain does not radiate. Quality of pain is described as rg5 aching, Pain began 1 hour ago. 23:00 General: Appears in no apparent distress. Neuro: Level of Consciousness is awake, rg5 alert, obeys commands, Oriented to person, place, time. Cardiovascular: Reports chest pain, shortness of breath. Respiratory: Reports cough that is. GI: Abdomen is round non-distended, Abd is soft and non tender. : No signs and/or symptoms were reported regarding the genitourinary system. EENT: No deficits noted. 10/13 00:54 Reassessment: No changes from previously documented assessment. Patient and/or family rg5 updated on plan of care and expected duration. Pain level reassessed. Patient is alert, oriented x 3, equal unlabored respirations, skin warm/dry/pink. 01:48 Reassessment: Patient and/or family updated on plan of care and expected duration. Pain rg5 level reassessed. Patient is alert, oriented x 3, equal unlabored respirations, skin warm/dry/pink. Patient states symptoms have improved. 02:48 Reassessment: No changes from previously documented assessment. Patient and/or family rg5 updated on plan of care and expected duration. Pain level reassessed. 03:38 Reassessment: No changes from previously documented assessment. Patient and/or family rg5 updated on plan of care and expected duration. Pain level reassessed. Patient states symptoms have improved. 04:41 General: per Isaura at [facility], all transportation for residents have to be lg3 facilitated with the [facility]. DON had been contacted several times with no response. . Vital Signs: 10/12 22:55 BP 176 / 74; Pulse 82; Resp 18; Temp 98; Pulse Ox 100% on 2 lpm NC; Weight 77.56 kg; rg5 Height 5 ft. 7 in. ; Pain 5/10; 23:57 BP 139 / 88; Pulse 81; Resp 18; Pulse Ox 100% on 2 lpm NC; Pain 0/10; rg5 10/13 00:54 BP 117 / 63; Pulse 77; Resp 18; Pulse Ox 100% on 2 lpm NC; Pain 0/10; rg5 01:49 BP 126 / 59; Pulse 72; Resp 18; Pulse Ox 100% ; Pain 0/10; rg5 02:47 BP 128 / 56; Pulse 63; Resp 18; Temp 98(O); Pulse Ox 100% on 2 lpm NC; Pain 0/10; rg5 03:39 BP 113 / 54; Pulse 71; Resp 18; Pulse Ox 100% on 2 lpm NC; Pain 0/10; lg3 05:49 BP 120 / 61; Pulse 61; Resp 16 S; Temp 97.8(A); Pulse Ox 99% on 2 lpm NC; lg3 10/12 22:55 Body Mass Index 26.78 (77.56 kg, 170.18 cm) 5 10/12 22:55 Pain Scale: Adult rg5 23:57 Pain Scale: Adult rg5 10/13 00:54 Pain Scale: Adult rg5 01:49 Pain Scale: Adult rg5 02:47 Pain Scale: Adult rg5 03:39 Pain Scale: Adult lg3 ED Course: 10/12 22:53 Patient arrived in ED. rv1 22:53 Kendell Carrillo MD is Attending Physician. ec2 22:54 Sumeet Anders PA is PHCP. cp 22:55 Arm band placed on right wrist. EKG completed in triage. Results shown to MD. rg5 22:55 Oxygen administration via nasal cannula \T\ 2L/min. rg5 22:58 Lucian Oconnor, RN is Primary Nurse. rg5 23:00 Patient has correct armband on for positive identification. Fall risk band placed. rg5 Placed in gown. Bed in low position. Call light in reach. Side rails up X2. Client placed on continuous cardiac and pulse oximetry monitoring. NIBP monitoring applied. shelter monitor on. Pulse ox on. NIBP on. Door closed. Noise minimized. Warm blanket given. 23:00 No provider procedures requiring assistance completed. Maintain EMS IV. Dressing rg5 intact. Good blood return noted. Site clean \T\ dry. Gauge \T\ site: 20g L wrist. Flushed. 23:24 Triage completed. rg5 23:42 XRAY Chest (1 view) In Process Unspecified. EDMS 10/13 01:09 CT Chest Wo Con In Process Unspecified. EDMS 02:48 Resting quietly. Appears to be sleeping. Awaiting lab results. rg5 03:39 IV discontinued, bleeding controlled, No redness/swelling at site. Pressure dressing rg5 applied. 03:40 Awaiting transportation, [facility]ing[facility] from [facility]. rg5 03:40 Provided Education on: post er care. rg5 Administered Medications: 10/12 23:39 Drug: morphine IVP or IV 4 mg IVP once over 4 mins Route: IVP; Infused Over: 4 mins; rg5 Site: left wrist; 23:52 Follow up: Response: No adverse reaction; Pain is decreased rg5 23:39 Drug: Ondansetron IVP 4 mg IVP once; over 2 minutes Route: IVP; Site: left wrist; rg5 23:52 Follow up: Response: No adverse reaction rg5 Medication: 23:00 VIS not applicable for this client. rg5 Outcome: 10/13 03:21 Discharge ordered by . ec2 03:55 Condition: pending discharge of pt, [facility] informed and still waiting for rg5 their call for the transportation of pt. 06:00 Discharged to intermediate. Report called to Isaura lg3 06:00 Condition: stable 06:00 Discharge instructions given to intermediate, 06:00 Instructed on discharge instructions, follow up and referral plans. Demonstrated understanding of instructions, follow-up care, 06:01 Patient left the ED. lg3 Signatures: Dispatcher [employer] EDMS Sumeet Anders PA PA cp Able, Lacie RN RN lg3 Tammi Butt rv1 Kendell Carrillo MD MD ec2 Lucian Oconnor, ASTRID RN rg5 Corrections: (The following items were deleted from the chart) 04:56 03:39 BP 113 / 54; Pulse 71bpm; Resp 18bpm; Pulse Ox 65% 2 lpm Nasal Cannula; Pain lg3 0/10, Adult; rg5
--- NOTE | 2024-10-13 03:21 | EDPHYS ---
Physician Documentation [facility] Name: Arun Mccall Age: 79 yrs Sex: Male : 1945 Arrival Date: 10/12/2024 Time: 22:49 Bed 20 Private MD: ED Physician Kendell Carrillo HPI: 10/12 22:55 This 79 yrs old Male presents to ER via EMS with complaints of Chest Pain. cp 22:55 The patient or guardian reports chest pain that is located primarily in the anterior cp chest wall, left. 22:55 Onset: 1 hour(s) ago. Associated signs and symptoms: Pertinent positives: cough, cp shortness of breath. Historical: - Allergies: 22:55 fenofibrate nanocrystallized; rg5 22:55 insulin degludec; rg5 - PMHx: 22:55 Anxiety; Diabetes - IDDM; Diverticulitis; HLD; Hypertension; rg5 - PSHx: 22:55 colon sx; rg5 - Immunization history:: Adult Immunizations up to date. - Infectious Disease History:: Denies. - Social history:: Smoking status: unknown. ROS: 23:00 Constitutional: Negative for body aches, chills, fever, poor PO intake, cp 23:00 Eyes: Negative for injury, pain, redness, and discharge, cp 23:00 ENT: Negative for drainage from ear(s), ear pain, sore throat, difficulty swallowing, difficulty handling secretions, 23:00 Cardiovascular: Positive for chest pain, 23:00 Respiratory: Positive for cough, shortness of breath, Negative for wheezing, 23:00 Abdomen/GI: Negative for abdominal pain, vomiting, diarrhea, constipation, Exam: 23:05 Constitutional: The patient appears in no acute distress, alert, awake, cp non-diaphoretic, non-toxic, well developed, well nourished, uncomfortable, 23:05 Head/Face: Normocephalic, atraumatic. cp 23:05 Eyes: Periorbital structures: appear normal, Conjunctiva: normal, no exudate, no injection, Sclera: no appreciated abnormality, Lids and lashes: appear normal, bilaterally, 23:05 ENT: External ear(s): are unremarkable, Nose: is normal, Mouth: Lips: moist, Oral mucosa: moist, Posterior pharynx: Airway: no evidence of obstruction, patent, 23:05 Chest/axilla: Inspection: normal, 23:05 Cardiovascular: Rate: normal, Rhythm: regular, Edema: no gross edema noted, JVD: is not appreciated, 23:05 Respiratory: the patient does not display signs of respiratory distress, Respirations: labored breathing, is not present, shallow respirations, that is mild, Breath sounds: decreased breath sounds, that are moderate, are heard in the left posterior lower lobe, 23:05 Abdomen/GI: Inspection: abdomen appears normal, Palpation: abdomen is soft and non-tender, in all quadrants, 23:05 Neuro: Orientation: to person, place \T\ time. Mentation: is normal, 23:20 ECG was reviewed by the Attending Physician. cp Vital Signs: 22:55 BP 176 / 74; Pulse 82; Resp 18; Temp 98; Pulse Ox 100% on 2 lpm NC; Weight 77.56 kg; rg5 Height 5 ft. 7 in. ; Pain 5/10; 23:57 BP 139 / 88; Pulse 81; Resp 18; Pulse Ox 100% on 2 lpm NC; Pain 0/10; 5 10/13 00:54 BP 117 / 63; Pulse 77; Resp 18; Pulse Ox 100% on 2 lpm NC; Pain 0/10; rg5 01:49 BP 126 / 59; Pulse 72; Resp 18; Pulse Ox 100% ; Pain 0/10; rg5 02:47 BP 128 / 56; Pulse 63; Resp 18; Temp 98(O); Pulse Ox 100% on 2 lpm NC; Pain 0/10; rg5 03:39 BP 113 / 54; Pulse 71; Resp 18; Pulse Ox 100% on 2 lpm NC; Pain 0/10; lg3 05:49 BP 120 / 61; Pulse 61; Resp 16 S; Temp 97.8(A); Pulse Ox 99% on 2 lpm NC; lg3 10/12 22:55 Body Mass Index 26.78 (77.56 kg, 170.18 cm) 5 10/12 22:55 Pain Scale: Adult rg5 23:57 Pain Scale: Adult 5 10/13 00:54 Pain Scale: Adult rg5 01:49 Pain Scale: Adult rg5 02:47 Pain Scale: Adult rg5 03:39 Pain Scale: Adult lg3 MDM: 10/12 22:54 Medical Screening Exam initiated ec2 10/13 02:23 Data reviewed: vital signs, nurses notes. ED course: Patient signed out to me arrives ec2 today for chest pain. Patient with recent pneumonia admission, CT scan that shows pleural effusions, sequela of recent pneumonia. Initial lab work showed within normal ranges troponin. Will obtain repeat EKG and troponin, reassess. Patient with no active chest pain at this time. Patient will be appropriate for discharge home with stable troponins.. 02:42 ED course: Repeat EKG independently reviewed and interpreted by me, shows normal sinus ec2 rhythm, rate of 67, no acute ST segment elevations, intervals nonactionable, PAC noted. Right bundle branch block noted.. 02:43 ED course: Of note patient on baseline oxygen at home, patient is saturating mid upper ec2 90s on 2 L nasal cannula without issue. 03:21 ED course: Repeat troponin is static. On reassessment patient is well-appearing in no ec2 acute distress. Will discharge home and have patient continue his home oxygen, no evidence of NSTEMI.. 10/12 22:56 Order name: Basic Metabolic Panel; Complete Time: 23:53 cp 10/12 23:53 Interpretation: Normal except: GLUC 117; BUN 33; CRE 2.22; GFR 30. cp 10/12 22:56 Order name: CBC with Diff; Complete Time: 23:53 cp 10/12 23:54 Interpretation: Normal except: RBC 3.35; HGB 9.5; HCT 28.9; RONNY% 81.9; LYM% 6.4; LYMA cp 0.3. 10/12 22:56 Order name: LFT's; Complete Time: 23:53 cp 10/12 22:56 Order name: Magnesium; Complete Time: 23:53 cp 10/12 22:56 Order name: NT PRO-BNP; Complete Time: 23:53 cp 10/12 22:56 Order name: PT-INR; Complete Time: 23:53 cp 10/12 22:56 Order name: Troponin HS; Complete Time: 23:53 cp 10/12 22:56 Order name: COVID-19 Ag + Flu A+B Ag; Complete Time: 23:53 cp 10/13 02:23 Order name: Troponin High Sensitivity; Complete Time: 03:20 ec2 10/12 22:56 Order name: XRAY Chest (1 view) cp 10/13 00:51 Order name: CT Chest Wo Con cp 10/12 22:56 Order name: Cardiac monitoring; Complete Time: 23:19 cp 10/12 22:56 Order name: EKG - Nurse/Tech; Complete Time: 23:19 cp 10/12 22:56 Order name: IV Saline Lock; Complete Time: 23:19 cp 10/12 22:56 Order name: Labs collected and sent; Complete Time: 23:19 cp 10/12 22:56 Order name: O2 Per Protocol; Complete Time: 23:19 cp 10/12 22:56 Order name: O2 Sat Monitoring; Complete Time: 23:19 cp 10/13 02:23 Order name: EKG - Nurse/Tech; Complete Time: 02:44 ec2 EC/16 23:20 Rate is 84 beats/min. Rhythm is regular. IN interval is normal. QRS interval is cp prolonged at 140 msec. QT interval is normal. T waves are Inverted in lead aVR. Interpreted by me. Reviewed by me. Administered Medications: 23:39 Drug: morphine IVP or IV 4 mg IVP once over 4 mins Route: IVP; Infused Over: 4 mins; rg5 Site: left wrist; 23:52 Follow up: Response: No adverse reaction; Pain is decreased rg5 23:39 Drug: Ondansetron IVP 4 mg IVP once; over 2 minutes Route: IVP; Site: left wrist; rg5 23:52 Follow up: Response: No adverse reaction rg5 Disposition: 10/13 02:43 I reviewed the patient's care provided by Advanced Practice Provider \T\ agree w/ the ec2 diagnosis \T\ care plan. I personally saw the pt \T\ performed a substantive portion of the visit, incldng all aspects of the (History/Exam/Medical Decision Making). Disposition Summary: 10/13/24 03:21 Discharge Ordered Notes: Location: Home ec2 Condition: Stable ec2 Diagnosis - Chest pain, unspecified ec2 Followup: ec2 - With: Private Physician - When: - Reason: Re-evaluation by your physician Discharge Instructions: - Discharge Summary Sheet ec2 - Nonspecific Chest Pain, Adult, [id number] ec2 Forms: - SBAR form lg3 - Medication Reconciliation Form ec2 - Antibiotic Education ec2 - Prescription Opioid Use ec2 - Patient Portal Instructions ec2 - Leadership Thank You Letter ec2 Signatures: Dispatcher [employer] EDMS Sumeet Anders PA PA Kendell Medeiros MD MD ec2 Lucian Oconnor, RN RN rg5 Corrections: (The following items were deleted from the chart) 10/12 22:56 22:56 BASIC METABOLIC PANEL+C.LAB.BRZ ordered. EDMS EDMS 22:56 22:56 CBC+H.LAB.BRZ ordered. EDMS EDMS 22:56 22:56 HEPATIC FUNCTION+C.LAB.BRZ ordered. EDMS EDMS 22:56 22:56 MAGNESIUM+C.LAB.BRZ ordered. EDMS EDMS 22:56 22:56 PROBNP+C.LAB.BRZ ordered. EDMS EDMS 22:56 22:56 PROTIME (+INR)+COAG.LAB.BRZ ordered. EDMS EDMS 22:56 22:56 Troponin High Sensitivity+C.LAB.BRZ ordered. EDMS EDMS 22:56 22:56 COVID-19 Ag + Flu A+B Ag+I.LAB.BRZ ordered. EDMS EDMS 10/13 02:23 02:23 Troponin High Sensitivity+C.LAB.BRZ ordered. EDMS EDMS
--- NOTE | 2024-10-13 05:42 | RAD REPORT ---
PROCEDURE: XR Chest, 1 View CLINICAL INDICATION: The patient is 79 years old and is Male; CHEST PAIN Bed Name: 20 TECHNIQUE: Frontal view of the chest. COMPARISON: 10/08/2024 chest radiograph FINDINGS: LUNGS: Right lung remains clear. PLEURAL SPACE: Stable to slight enlargement of left-sided pleural effusion with associated left mid lung and basilar airspace disease, atelectasis versus pneumonia. No appreciable pneumothorax. MEDIASTINUM: Stable cardiomediastinal contour, with redemonstrated masslike fullness of the left hilu m. BONES/JOINTS: Multilevel spondylosis. VASCULATURE: Calcified atherosclerosis of the thoracic aorta. IMPRESSION: 1. Stable to slight enlargement of left-sided pleural effusion with associated left midlung and bas ilar airspace disease, atelectasis versus pneumonia. 2. Masslike fullness of the left hilum redemonstrated. Suspicious for potential left hilar mass or lymphadenopathy. Recommend further evaluation by contrast-enhanced chest CT. Electronically signed by: Mau Mckeon MD 10/13/2024 12:38 AM CDT Due to temporary technical issues with the PACS/Giggle reporting system, reports are being zoraida d by the in-house radiologist without review as a courtesy to ensure prompt reporting the interpreting radiologist is fully responsible for the content of the report. Transcribed Date/Time: 10/13/2024 5:42 AM
--- NOTE | 2024-10-13 06:09 | RAD REPORT ---
PROCEDURE: CT Chest Without Intravenous Contrast CLINICAL INDICATION: The patient is 79 years old and is Male; Chest pain. TECHNIQUE: Axial computed tomography images of the chest without intravenous contrast. Sagittal and coronal re formatted images were created and reviewed. This CT exam was performed using one or more of the following dose reduction techniques: automated exposure control, adjustment of the mA and/or kV acc ording to patient size, and/or use of iterative reconstruction technique. COMPARISON: CT Chest abdomen pelvis 10/06/2024. FINDINGS: LUNGS: Remainder of the right lung appears well-aerated and clear. Apparent occlusion or partial occlusion of the origin of the left lower lobe bronchus, also n oted on prior exam. PLEURAL SPACE: Trace bilateral pleural effusions with progressive consolidation and volume loss wit hin the left lower lobe, with near complete atelectatic collapse, and mild dependent left upper lobe and lingula subsegmental atelectasis. Trace dependent right basilar subsegmental atelectasis. No pneumothorax. HEART: Moderate to severe mitral annular calcifications. MEDIASTINUM: No mediastinal or hilar lymphadenopathy or mass appreciated. BONES/JOINTS: Remote fracture of the anterior lateral left 8th rib. No displaced or depressed rib f ractures. No appreciable sternal or vertebral fractures. Exaggerated kyphosis of the thoracic spine with multilevel spondylosis and anterior and left and right lateral osteophytes. No dislocation. SOFT TISSUES: Unremarkable VASCULATURE: Severe calcified atherosclerosis of the thoracic aorta without aneurysmal dilatation. Severe multivessel coronary artery calcifications. LYMPH NODES: See above. GALLBLADDER AND BILE DUCTS: Gallbladder sludge demonstrated with no calcified stones seen within th e partially visualized gallbladder lumen. KIDNEYS AND URETERS: Multiple low attenuation lesions in the kidneys some of which appear to be due to simple renal cysts while others are too small to characterize. No follow-up is necessary. Atrophic appearance of the partially visualized left kidney. IMPRESSION: 1. Trace bilateral pleural effusions with progressive, near complete atelectatic collapse of the le ft lower lobe, and mild dependent left upper lobe and lingula subsegmental atelectasis. 2. Apparent occlusion or partial occlusion of the origin of the left lower lobe bronchus, also note d on prior exam. Consider further characterization by bronchoscopy to evaluate for possible neoplasm or other occlusive process. 3. No other acute abnormality within the chest. 4. Chronic and senescent changes, as above. Electronically signed by: Mau Mckeon MD 10/13/2024 02:12 AM CDT RP Due to temporary technical issues with the PACS/Pushkart reporting system, reports are being zoraida d by the in-house radiologist without review as a courtesy to ensure prompt reporting the interpreting radiologist is fully responsible for the content of the report. Transcribed Date/Time: 10/13/2024 6:09 AM
[2024-10-13 06:14] VITALS: BP 120/61; TEMP 97.8; O2SAT 99
== END 2024-10-13 06:01 | disposition home or self-care (01) ==
LOC: ER 22:49
DX: R07.9 Chest pain, unspecified (principal); R05.9 Cough, unspecified; R06.02 Shortness of breath; Z11.52 Encounter for screening for COVID-19
CPT/HCPCS: 93005 ×3; 85025; 80048; 36415; 83735; 85610; 80076; 84484 ×2; 83880; 71250; 71045; 87428; J2405